=== PATIENT | male | born 1960 | race Caucasian/White ===

== ENCOUNTER 2018-09-30 11:06 | Emergency (ER) | payer BC ==
[2018-09-30 11:51] LABS: Absolute Lymphocytes (CBC) 1.8 K/uL (0.7-4.9); Absolute Monocytes 0.7 K/uL (0.1-1.3); Absolute Neutrophil 7.8 K/uL (1.8-8.0); Basophils % 0.4 % (0-1.3); Eosinophils % 0.3 % (0-4.4); Hematocrit 47.3 % (39.6-49.0); Lymphocytes % 17.7 % (15.3-44.8); MPV 7.9 fL (7.6-11.3); Monocytes % 6.5 % (3.3-12.3); RBC Red Blood Cell Count 5.21 M/uL (4.33-5.43)
[2018-09-30] MEDS ORDERED: NA CHLORIDE 0.9% 1,000 ML ONE (11:51)
[2018-09-30 12:12] LABS: Albumin 4.2 g/dL (3.4-5.0); Bilirubin Direct 0.2 mg/dL (0-0.2); Bilirubin Total 0.8 mg/dL (0.2-1.0); Magnesium 1.8 mg/dL (1.8-2.4); Potassium 4.2 mmol/L (3.5-5.1); Protein, Total 7.7 g/dL (6.4-8.2); Troponin (Emerg Dept Use Only) 0.04 ng/mL (0.0-0.045)
[2018-09-30 12:14] LABS: Protime INR 1.01
--- NOTE | 2018-09-30 12:20 | RAD REPORT ---
EXAM DESCRIPTION: Radha Single View09/30/2018 12:15 pm CLINICAL HISTORY: Chest pain COMPARISON: 2012 FINDINGS: The lungs appear clear of acute infiltrate. The heart is normal size IMPRESSION: No acute abnormalities displayed
--- NOTE | 2018-09-30 12:44 | ER ---
Nurse's Notes [facility] Name: Kevin Castellon Age: 58 yrs Sex: Male : 1960 Arrival Date: 09/30/2018 Time: 11:07 Bed 19 Private MD: London Aguiar R Diagnosis: Chest pain, unspecified;Angina pectoris;Type 2 diabetes mellitus;Essential (primary) hypertension Presentation: 09/30 11:17 Care prior to arrival: EKG performed by Employer. sg 11:17 Acuity: HUGH 3 sg 11:19 Presenting complaint: Patient states: Midsternal CP that radiates to the mid upper sg back, reports the pain that is burning that radiates the left arm, started early this morning about 0600. Transition of care: patient was not received from another setting of care. Onset of symptoms was September 30, 2018. Risk Assessment: Do you want to hurt yourself or someone else? Patient reports no desire to harm self or others. Initial Sepsis Screen: Does the patient meet any 2 criteria? No. Patient's initial sepsis screen is negative. Does the patient have a suspected source of infection? No. Patient's initial sepsis screen is negative. 11:19 Method Of Arrival: Ambulatory sg 11:24 Note took 325 mg aspirin PO. sg Historical: - Allergies: 11:24 Sulfa (Sulfonamide Antibiotics); sg - PMHx: 11:24 Diabetes - NIDDM; Hypertension; sg - PSHx: 11:17 Appendectomy; Hernia repair; sg - Immunization history:: Adult Immunizations up to date. - Social history:: Smoking status: Patient/guardian denies using tobacco. - Ebola Screening: : Patient negative for fever greater than or equal to 101.5 degrees Fahrenheit, and additional compatible Ebola Virus Disease symptoms Patient denies exposure to infectious person Patient denies travel to an Ebola-affected area in the 21 days before illness onset No symptoms or risks identified at this time. - Family history:: not pertinent. Screenin:48 Abuse screen: Denies threats or abuse. Nutritional screening: No deficits noted. tw2 Tuberculosis screening: No symptoms or risk factors identified. Fall Risk None identified. Assessment: 11:30 General: Appears in no apparent distress. Behavior is calm, cooperative, appropriate tw2 for age. Pain: Complains of pain in chest Pain radiates to back Pain began since 6 am this morning. Neuro: Level of Consciousness is awake, alert, obeys commands, Oriented to person, place, time, situation. Cardiovascular: Denies chest pain, shortness of breath, Heart tones S1 S2 Patient's skin is warm and dry. Respiratory: Airway is patent Respiratory effort is even, unlabored, Respiratory pattern is regular, symmetrical, Breath sounds are clear bilaterally. GI: No signs and/or symptoms were reported involving the gastrointestinal system. Abdomen is round non-distended, Bowel sounds present X 4 quads. : No signs and/or symptoms were reported regarding the genitourinary system. EENT: No signs and/or symptoms were reported regarding the EENT system. Derm: No signs and/or symptoms reported regarding the dermatologic system. Musculoskeletal: Range of motion: intact in all extremities. 12:50 Reassessment: Patient appears in no apparent distress at this time. No changes from tw2 previously documented assessment. Patient and/or family updated on plan of care and expected duration. Pain level reassessed. Patient is alert, oriented x 3, equal unlabored respirations, skin warm/dry/pink. pt refused pain medication at this time states "09/05 maybe". 13:30 Reassessment: Patient appears in no apparent distress at this time. No changes from tw2 previously documented assessment. Patient and/or family updated on plan of care and expected duration. Pain level reassessed. Patient is alert, oriented x 3, equal unlabored respirations, skin warm/dry/pink. 14:37 Reassessment: Patient appears in no apparent distress at this time. No changes from tw2 previously documented assessment. Patient and/or family updated on plan of care and expected duration. Pain level reassessed. Patient is alert, oriented x 3, equal unlabored respirations, skin warm/dry/pink. Vital Signs: 11:24 BP 136 / 96; Pulse 71; Resp 17; Temp 97.2; Pulse Ox 98% on R/A; Weight 95.25 kg; Height sg 5 ft. 10 in. (177.80 cm); Pain 06/05; 12:50 BP 133 / 83 LA; Pulse 60; Resp 18; Pulse Ox 98% on R/A; tw2 12:50 BP 129 / 84 RA; Pulse 60; Resp 17; tw2 13:31 BP 129 / 81; Pulse 60; Resp 17; Pulse Ox 96% on R/A; tw2 11:24 Body Mass Index 30.13 (95.25 kg, 177.80 cm) ED Course: 11:07 Patient arrived in ED. as 11:08 London Aguiar MD is Private Physician. as 11:17 Triage completed. sg 11:17 Arm band placed on. sg 11:26 Catrachita Smiley RN is Primary Nurse. tw2 11:28 Luis Fernando Whiteside MD is Attending Physician. tyrone 11:30 Placed in gown. Bed in low position. Call light in reach. Adult w/ patient. Cardiac tw2 monitor on. Pulse ox on. NIBP on. 11:30 Inserted saline lock: 20 gauge in right forearm, using aseptic technique. ,using tw2 aseptic technique. per LINDA Schafer Blood collected. 11:39 EKG done, by claim technician. reviewed by Luis Fernando Whiteside MD. at1 12:16 X-ray completed. Portable x-ray completed in exam room. Patient tolerated procedure mh1 well. 12:16 XRAY Chest (1 view) In Process Unspecified. EDMS 12:43 London Aguiar MD is Hospitalizing Provider. tyrone 12:47 EKG done, by claim technician. reviewed by Luis Fernando Whiteside MD Repeat EKG. at1 13:24 CT Aorta for Dissection In Process Unspecified. EDMS 13:30 Inserted saline lock: 22 gauge in right antecubital area, using aseptic technique. tw2 ,using aseptic technique. residential specialist. 13:48 Patient maintains SpO2 saturation greater than 95% on room air. tw2 13:58 Report given to LINDA Salvador at [facility]. tw2 14:36 No provider procedures requiring assistance completed. Patient transferred, IV remains tw2 in place. Administered Medications: 11:49 Drug: NS 0.9% 1000 ml Route: IV; Rate: 125 ml/hr; Site: right forearm; tw2 14:35 Follow up: IV Status: Infusion continued upon transfer tw2 12:48 Drug: ProTONIX 40 mg Route: IVP; Site: right forearm; tw2 13:40 Follow up: Response: No adverse reaction tw2 12:50 Drug: Lopressor 25 mg Route: PO; tw2 13:41 Follow up: Response: No adverse reaction tw2 12:50 Drug: PlaVIX 600 mg Route: PO; tw2 13:40 Follow up: Response: No adverse reaction tw2 12:53 Drug: Heparin (CO-Bolus No thrombolytic) - HEParin 60 units/kg {Co-Signature: ph tw2 (Alexa Ferraro RN).} Route: IVP; Site: right forearm; 13:41 Follow up: Response: No adverse reaction tw2 12:55 Drug: Heparin (CO Drip) 12 units/kg/hr - (HEParin 75685 units, D5W 500 ml) tw2 {Co-Signature: ph (Alexa Ferraro RN).} Route: IV; Rate: calculated rate; Site: right forearm; 14:34 Follow up: IV Status: Infusion continued upon transfer tw2 13:28 Not Given (pts hr is 60): Lopressor 2.5 mg IVP once; Hold for SBP <100 or HR <60. tw2 14:30 Drug: Zofran 4 mg Route: IVP; Site: right antecubital; tw2 14:35 Follow up: Response: No adverse reaction tw2 14:32 Drug: morphine 4 mg Route: IVP; Site: right antecubital; tw2 14:35 Follow up: Response: No adverse reaction tw2 14:36 Not Given (pts condition): Lopressor 2.5 mg IVP once; Hold for SBP <100 or HR <60. tw2 Outcome: 12:44 Decision to Hospitalize [facility] 13:05 ER care complete, transfer ordered by [facility] 13:05 Transferred by [facility] EMS to [facility]. tw2 13:05 Condition: stable 13:05 Instructed on the need for transfer. 14:37 Patient left the ED. tw2 Signatures: Dispatcher [employer] Gilmar White, RN RN Luis Fernando Zamorano MD MD cha Harvey, Martha mh1 Brittny Duong Amanda, oral health therapist EKG Tat1 Catrachita Smiley RN RN tw2 Alexa Ferraro RN ph
--- NOTE | 2018-09-30 12:44 | EDPHYS ---
Physician Documentation [facility] Name: Kevin Castellon Age: 58 yrs Sex: Male : 1960 Arrival Date: 09/30/2018 Time: 11:07 Bed 19 Private MD: London Aguiar R ED Physician Luis Fernando Whiteside HPI: 09/30 12:24 This 58 yrs old Male presents to ER via Ambulatory with complaints of Chest tyrone Pain. 12:24 The patient or guardian reports chest pain that is located primarily in the anterior tyrone chest wall, bilaterally. Onset: this morning. The pain radiates to Associated signs and symptoms: The patient has no apparent associated signs or symptoms. The chest pain is described as burning, a pressure. Modifying factors: The symptoms are alleviated by nothing. Severity of pain: At its worst the pain was moderate in the emergency department the pain has improved moderately. The patient has not experienced similar symptoms in the past. Historical: - Allergies: 11:24 Sulfa (Sulfonamide Antibiotics); sg - PMHx: 11:24 Diabetes - NIDDM; Hypertension; sg - PSHx: 11:17 Appendectomy; Hernia repair; sg - Immunization history:: Adult Immunizations up to date. - Social history:: Smoking status: Patient/guardian denies using tobacco. - Ebola Screening: : Patient negative for fever greater than or equal to 101.5 degrees Fahrenheit, and additional compatible Ebola Virus Disease symptoms Patient denies exposure to infectious person Patient denies travel to an Ebola-affected area in the 21 days before illness onset No symptoms or risks identified at this time. - Family history:: not pertinent. ROS: 12:24 Constitutional: Negative for fever, chills, and weight loss, Eyes: Negative for injury, tyrone pain, redness, and discharge, ENT: Negative for injury, pain, and discharge, Neck: Negative for injury, pain, and swelling, Respiratory: Negative for shortness of breath, cough, wheezing, and pleuritic chest pain, Abdomen/GI: Negative for abdominal pain, nausea, vomiting, diarrhea, and constipation, Back: Negative for injury and pain, : Negative for injury, bleeding, discharge, and swelling, MS/Extremity: Negative for injury and deformity, Skin: Negative for injury, rash, and discoloration, Neuro: Negative for headache, weakness, numbness, tingling, and seizure, Psych: Negative for depression, anxiety, suicide ideation, homicidal ideation, and hallucinations, Allergy/Immunology: Negative for hives, rash, and allergies, Endocrine: Negative for neck swelling, polydipsia, polyuria, polyphagia, and marked weight changes, Hematologic/Lymphatic: Negative for swollen nodes, abnormal bleeding, and unusual bruising. 12:24 Cardiovascular: Positive for chest pain, of the chest. Exam: 12:24 Constitutional: This is a well developed, well nourished patient who is awake, alert, tyrone and in no acute distress. Head/Face: Normocephalic, atraumatic. Eyes: Pupils equal round and reactive to light, extra-ocular motions intact. Lids and lashes normal. Conjunctiva and sclera are non-icteric and not injected. Cornea within normal limits. Periorbital areas with no swelling, redness, or edema. ENT: Nares patent. No nasal discharge, no septal abnormalities noted. Tympanic membranes are normal and external auditory canals are clear. Oropharynx with no redness, swelling, or masses, exudates, or evidence of obstruction, uvula midline. Mucous membranes moist. Neck: Trachea midline, no thyromegaly or masses palpated, and no cervical lymphadenopathy. Supple, full range of motion without nuchal rigidity, or vertebral point tenderness. No Meningismus. Chest/axilla: Normal chest wall appearance and motion. Nontender with no deformity. No lesions are appreciated. Cardiovascular: Regular rate and rhythm with a normal S1 and S2. No gallops, murmurs, or rubs. Normal PMI, no JVD. No pulse deficits. Respiratory: Lungs have equal breath sounds bilaterally, clear to auscultation and percussion. No rales, rhonchi or wheezes noted. No increased work of breathing, no retractions or nasal flaring. Abdomen/GI: Soft, non-tender, with normal bowel sounds. No distension or tympany. No guarding or rebound. No evidence of tenderness throughout. Back: No spinal tenderness. No costovertebral tenderness. Full range of motion. Male : Normal genitalia with no discharge or lesions. Skin: Warm, dry with normal turgor. Normal color with no rashes, no lesions, and no evidence of cellulitis. MS/ Extremity: Pulses equal, no cyanosis. Neurovascular intact. Full, normal range of motion. Neuro: Awake and alert, GCS 15, oriented to person, place, time, and situation. Cranial nerves II-XII grossly intact. Motor strength 5/5 in all extremities. Sensory grossly intact. Cerebellar exam normal. Normal gait. Psych: Awake, alert, with orientation to person, place and time. Behavior, mood, and affect are within normal limits. Vital Signs: 11:24 BP 136 / 96; Pulse 71; Resp 17; Temp 97.2; Pulse Ox 98% on R/A; Weight 95.25 kg; Height sg 5 ft. 10 in. (177.80 cm); Pain 10/10; 12:50 BP 133 / 83 LA; Pulse 60; Resp 18; Pulse Ox 98% on R/A; tw2 12:50 BP 129 / 84 RA; Pulse 60; Resp 17; tw2 13:31 BP 129 / 81; Pulse 60; Resp 17; Pulse Ox 96% on R/A; tw2 11:24 Body Mass Index 30.13 (95.25 kg, 177.80 cm) MDM: 11:28 Patient medically screened. [facility] 12:28 Data reviewed: vital signs, nurses notes, lab test result(s), EKG, radiologic studies, tyrone plain films. 09/30 11:28 Order name: Basic Metabolic Panel; Complete Time: 12:22 [facility] 09/30 11:28 Order name: CBC with Diff; Complete Time: 12:22 [facility] 09/30 11:28 Order name: LFT's; Complete Time: 12:22 [facility] 09/30 11:28 Order name: Magnesium; Complete Time: 12:22 [facility] 09/30 11:28 Order name: NT PRO-BNP; Complete Time: 12:22 [facility] 09/30 11:28 Order name: PT-INR; Complete Time: 12:22 [facility] 09/30 11:28 Order name: Troponin (emerg Dept Use Only); Complete Time: 12:22 [facility] 09/30 11:28 Order name: XRAY Chest (1 view); Complete Time: 12:22 [facility] 09/30 11:28 Order name: Lipase; Complete Time: 12:22 [facility] 09/30 12:10 Order name: Urine Dipstick--Ancillary (enter results); Complete Time: 13:42 09/30 12:46 Order name: Echo w/ Doppler [facility] 09/30 12:46 Order name: CT Aorta for Dissection; Complete Time: 13:42 tyrone 09/30 11:28 Order name: EKG; Complete Time: 11:30 tyrone 09/30 11:28 Order name: Cardiac monitoring; Complete Time: 11:39 [place] 09/30 11:28 Order name: EKG - Nurse/Tech; Complete Time: 11:39 tyrone 09/30 11:28 Order name: IV Saline Lock; Complete Time: 11:39 tyrone 09/30 11:28 Order name: Labs collected and sent; Complete Time: 11:39 [facility] 09/30 11:28 Order name: O2 Per Protocol; Complete Time: 11:39 tyrone 09/30 11:28 Order name: O2 Sat Monitoring; Complete Time: 11:39 [facility] 09/30 12:51 Order name: EKG; Complete Time: 12:51 fl 09/30 11:28 Order name: Urine Dipstick-Ancillary (obtain specimen); Complete Time: 11:49 [facility] 09/30 12:28 Order name: Bilateral blood pressure; Complete Time: 12:58 [facility] Administered Medications: 11:49 Drug: NS 0.9% 1000 ml Route: IV; Rate: 125 ml/hr; Site: right forearm; tw2 14:35 Follow up: IV Status: Infusion continued upon transfer tw2 12:48 Drug: ProTONIX 40 mg Route: IVP; Site: right forearm; tw2 13:40 Follow up: Response: No adverse reaction tw2 12:50 Drug: Lopressor 25 mg Route: PO; tw2 13:41 Follow up: Response: No adverse reaction tw2 12:50 Drug: PlaVIX 600 mg Route: PO; tw2 13:40 Follow up: Response: No adverse reaction tw2 12:53 Drug: Heparin (OR-Bolus No thrombolytic) - HEParin 60 units/kg {Co-Signature: ph tw2 (Alexa Ferraro RN).} Route: IVP; Site: right forearm; 13:41 Follow up: Response: No adverse reaction tw2 12:55 Drug: Heparin (OR Drip) 12 units/kg/hr - (HEParin 74769 units, D5W 500 ml) tw2 {Co-Signature: ph (Alexa Ferrrao RN).} Route: IV; Rate: calculated rate; Site: right forearm; 14:34 Follow up: IV Status: Infusion continued upon transfer tw2 13:28 Not Given (pts hr is 60): Lopressor 2.5 mg IVP once; Hold for SBP <100 or HR <60. tw2 14:30 Drug: Zofran 4 mg Route: IVP; Site: right antecubital; tw2 14:35 Follow up: Response: No adverse reaction tw2 14:32 Drug: morphine 4 mg Route: IVP; Site: right antecubital; tw2 14:35 Follow up: Response: No adverse reaction tw2 14:36 Not Given (pts condition): Lopressor 2.5 mg IVP once; Hold for SBP <100 or HR <60. tw2 Disposition: 09/30/18 13:[address] [facility]. Diagnosis are Chest pain, unspecified, Angina pectoris, Type 2 diabetes mellitus, Essential (primary) hypertension. - Reason for transfer: Higher level of care. - Accepting physician is to [facility] [place] - Condition is Fair. - Problem is new. - Symptoms have improved. Signatures: Dispatcher [employer] EDGilmar Russell RN RN Luis Fernando Whiteside MD MD cha Wise, Tara, RN RN tw2 Alexa Ferraro RN ph Corrections: (The following items were deleted from the chart) 13:02 12:44 Hospitalization Ordered by London Aguiar MD for Observation. Preliminary diagnosis tyrone is Chest pain, unspecified - angina; Type 2 diabetes mellitus; Essential (primary) hypertension. Bed requested for Telemetry/MedSurg (Inpatient). Status is Observation. Condition is Fair. Problem is new. Symptoms have improved. UTI on Admission? No. tyrone 14:37 13:05 09/30/2018 13:[address] [facility]. Diagnosis is tw2 Chest pain, unspecified; Angina pectoris; Type 2 diabetes mellitus; Essential (primary) hypertension. Reason for transfer: Higher level of care. Accepting physician is to [facility] [place]. Condition is Fair. Problem is new. Symptoms have improved. tyrone
[2018-09-30] MEDS ORDERED: MORPHINE 4 MG/ML SYR ONE (12:52)
[2018-09-30] MEDS ORDERED: CLOPIDOGREL 75 MG TABLET ONE (12:52)
[2018-09-30] MEDS ORDERED: HEPARIN 5000 UNIT/ML 1 ML VIAL ONE (12:52)
[2018-09-30] MEDS ORDERED: PANTOPRAZOLE 40 MG INJ ONE (12:53)
[2018-09-30] MEDS ORDERED: METOPROLOL TAR 25 MG TAB ONE (12:53)
[2018-09-30] MEDS ORDERED: HEPARIN/D5W 25,000 UNIT/500 ML BAG IV ONE (12:53)
[2018-09-30] MEDS ORDERED: ONDANSETRON 4 MG/2 ML VIAL ONE (12:53)
[2018-09-30] MEDS ORDERED: METOPROLOL TARTRATE 5 MG/5 ML INJ IV ONE (12:53)
--- NOTE | 2018-09-30 12:55 | EKG ---
Test Date: 2018-08-30 Test Time: 12:26:42 Health And Safety Inspector: YAHAIRA MEASUREMENT RESULTS: Intervals: Rate: 69 ID: [id number] QRSD: 96 QT: 404 QTc: 432 [place]: P: 45 ID: [id number] QRS: 12 T: 23 INTERPRETIVE STATEMENTS: Normal sinus rhythm Normal ECG Compared to ECG 08/30/2018 11:25:26 ST (T wave) deviation no longer present Electronically Signed On 09-30-18 12:54:24 LEGAL ASSISTANT by Alex Amaya
--- NOTE | 2018-09-30 12:56 | EKG ---
Test Date: 2018-08-30 Test Time: 11:25:26 Knitted Cloth Examiner: YAHAIRA MEASUREMENT RESULTS: Intervals: Rate: 72 [place]: 160 QRSD: 94 QT: 394 QTc: 431 [place]: P: 43 [place]: 160 QRS: 17 T: 27 INTERPRETIVE STATEMENTS: Normal sinus rhythm ST elevarion consider pericarditis or injury Abnormal ECG Compared to ECG 09/10/2011 10:55:59 ST (T wave) deviation now present Sinus tachycardia no longer present Electronically Signed On 09-30-18 12:55:56 CONE TRUCKER by Alex Amaya
[2018-09-30 13:18] LABS: Urine Blood NEGATIVE (NEG); Urine Glucose 3+ (NEG); Urine Protein TRACE (NEG); Urine Specific Gravity 1.025 (1.005-1.030); Urine pH 5.5 (5.0-7.0)
--- NOTE | 2018-09-30 13:33 | RAD REPORT ---
EXAM DESCRIPTION: CT - Angio Aorta For Dissection - 09/30/2018 1:19 pm CLINICAL HISTORY: Chest pain radiating to the back. CHEST PAIN COMPARISON: No comparisons TECHNIQUE: CT angiography of the aorta was performed with MIPs. All CT scans are performed using dose optimization technique as appropriate and may include automated exposure control or mA/KV adjustment according to patient size. FINDINGS: A left aortic arch is present with normal branching pattern of the great vessels.No acute aortic finding is seen such as aneurysm, penetrating ulcer or dissection. The celiac axis, SMA, RACHAEL and renal arteries are widely patent. No evidence of pulmonary embolism. The lungs are clear. The liver demonstrates no focal mass or biliary dilatation.The spleen, pancreas, adrenal glands and k idneys are within normal limits for arterial phase imaging. No bowel obstruction, free fluid or abscess.Appendectomy. Evidence of previous anterior abdominal wal l hernia repair.No pathologic enlarged lymphadenopathy identified. Scattered colonic diverticulosis. Moderate lower lumbar degenerative changes. Mild S-shaped scoliosis is present of the thoracolumbar s pine. IMPRESSION: No acute aortic finding is demonstrated.
[2018-09-30 14:48] VITALS: TEMP 97.2
[2018-09-30 14:50] VITALS: BP 129/81; O2SAT 96
--- NOTE | 2018-09-30 17:02 | ECHO ---
HEIGHT: 5 ft 10 in WEIGHT: 210 lb 0 oz DATE OF STUDY: 09/30/[address]: Luis Fernando Whiteside MD 2-DIMENSIONAL: YES M.MODE: YES DOPPLER: YES COLOR FLOW: YES TDS: PORTABLE: DEFINITY: BUBBLE STUDY: DIAGNOSIS: CHEST PAIN CARDIAC HISTORY: CATHERIZATION: NO SURGERY: NO PROSTHETIC VALVE: NO PACEMAKER: NO MEASUREMENTS (cm) DIASTOLIC (NORMALS) SYSTOLIC (NORMALS) IVSd 1.1 (0.6-1.2) LA Diam 2.9 (1.9-4.0) LVEF 62% LVIDd 4.8 (3.5-5.7) LVIDs 3.2 (2.0-3.5) %FS 34% LVPWd 1.1 (0.6-1.2) Ao Diam 3.3 (2.0-3.7) 2 DIMENSIONAL ASSESSMENT: RIGHT ATRIUM: NORMAL LEFT ATRIUM: NORMAL RIGHT VENTRICLE: NORMAL LEFT VENTRICLE: NORMAL TRICUSPID VALVE: NORMAL MITRAL VALVE: NORMAL PULMONIC VALVE: NORMAL AORTIC VALVE: NORMAL PERICARDIAL EFFUSION: NONE AORTIC ROOT: NORMAL LEFT VENTRICULAR WALL MOTION: NORMAL DOPPLER/COLOR FLOW: NORMAL COMMENTS: NORMAL TWO DIMENSIONAL ECHOCARDIOGRAM WITH DOPPLER. TECHNOLOGIST: BREANN PACHECO
== END 2018-09-30 14:37 | disposition short-term general hospital (02) ==
LOC: ER 11:06
DX: I20.9 Angina pectoris, unspecified (principal); I10 Essential (primary) hypertension; E11.9 Type 2 diabetes mellitus without complications; Z88.2 Allergy status to sulfonamides
CPT/HCPCS: 36415; 71045; 71275; 74175; 80048; 80076; 81003; 83690; 83735; 83880; 84484; 85025; 85610; 93005; 93306; 99285; C9113; J1644; J2405; J7030; Q9967

== ENCOUNTER 2018-11-03 11:14 | Emergency (ER) | payer BC ==
--- OUTSIDE RECORDS SUMMARY | 2018-11-03 11:17 | XMS REPORT | Clinical Summary ---
:1960 Author Organization [facility] Address [address] [place] [address] Care Team Providers Name Role Phone Pcp, No Primary Care Provider Unavailable Allergies Active Allergy Reactions Severity Noted Date Comments Sulfa (Sulfonamide Other (See Comments) High 09/30/2018 Liver failure Antibiotics) Medications Medication Sig Dispensed Refills Start Date End Date Status amLODIPine (NORVASC) 10 Take 10 mg by 0 Active MG tablet mouth daily. lisinopril Take 20 mg by 0 Active (PRINIVIL,ZESTRIL) 5 MG mouth daily . tablet omeprazole (PRILOSEC) Take 40 mg by 0 Active 40 MG capsule mouth daily. glimepiride (AMARYL) 1 Take 0.5 mg by 0 Active MG tablet mouth every morning before breakfast. tamsulosin (FLOMAX) 0.4 Take 0.4 mg by 0 Active mg Cap 24 hr capsule mouth daily. levocetirizine (XYZAL) Take 5 mg by 0 Active 5 MG tablet mouth every evening. celecoxib (CELEBREX) Take 200 mg by 0 Active 200 MG capsule mouth every 12 (twelve) hours as needed for Pain. aspirin 81 MG chewable Take 1 tablet 90 tablet 3 10/02/2018 10/02/2019 Active tablet (81 mg total) by mouth daily. metoprolol (LOPRESSOR) Take 0.5 90 tablet 3 10/02/2018 10/02/2019 Active 25 MG tablet tablets (12.5 mg total) by mouth 2 (two) times daily. atorvastatin (LIPITOR) Take 1 tablet 90 tablet 3 10/01/2018 10/01/2019 Active 40 MG tablet (40 mg total) by mouth daily. Active Problems Problem Noted Date NSTEMI (non-ST elevated myocardial infarction) 09/30/2018 Encounters Date Type Specialty Care Team Description 10/01/2018 Surgery Aleks Turner & PCI MD Abraham 09/30/2018 - Hospital Encounter Cardiology Tiffanie Turner NSTEMI (non-ST 10/02/2018 Abolfathian, elevated myocardial MD infarction) (HCC) Johnny, (Primary Dx) MD Abraham 09/30/2018 Orders Only General Internal Medicine after 11/02/2017 Social History Tobacco Use Types Packs/Day Years Used Date Never Smoker Smokeless Tobacco: Former User Snuff Alcohol Use Drinks/Week oz/Week Comments No Alcohol Habits Answer Date Recorded How often do you have a drink containing alcohol? Never 09/30/2018 How many drinks containing alcohol do you have on a typical Not asked day when you are drinking? How often do you have six or more drinks on one occasion? Not asked Sex Assigned at Date Recorded Not on file Job Start Date Occupation Industry Not on file Not on file Not on file Travel History Travel Start Travel End No recent travel history available. Last Filed Vital Signs Vital Sign Reading Time Taken Blood Pressure 113/79 10/02/2018 7:30 AM [employer]CIAL PORT[employer] MANAGER Pulse 61 10/02/2018 7:30 AM [employer]CIAL PORTF[employer] MANAGER Temperature 36.6 C (97.9 F) 10/02/2018 7:30 AM COMMERCIAL PORTF[employer] MANAGER Respiratory Rate 20 10/02/2018 7:30 AM COMMERCIAL PORTF[employer] MANAGER Oxygen Saturation 94% 10/02/2018 7:30 AM COMMERCIAL PORTFOLIO MANAGER Inhaled Oxygen Concentration - - Weight 93.6 kg (206 lb 6.4 oz) 10/02/2018 7:30 AM COMMERCIAL PORTFOLIO MANAGER Height 178 cm (5' 10.08") 10/01/2018 3:41 PM COMMERCIAL PORTFOLIO MANAGER Body Mass Index 29.55 10/02/2018 7:30 AM COMMERCIAL PORTFOLIO MANAGER Plan of Treatment Not on file Procedures Procedure Name Priority Date/Time Associated Comments Diagnosis VASCULAR DIAGRAM -SCAN 10/24/2018 4:41 PM COMMERCIAL PORTFOLIO MANAGER RHYTHM STRIP - SCAN 10/15/2018 2:31 PM COMMERCIAL PORTFOLIO MANAGER REPORT OF PROCEDURE - 10/15/2018 2:31 ENDOSCOPY SCAN PM COMMERCIAL PORTFOLIO MANAGER CARDIAC CATH REPORT - 10/15/2018 2:31 SCAN PM COMMERCIAL PORTFOLIO MANAGER TRANSFUSION SERVICE 10/02/2018 6:02 REPORT - SCAN PM COMMERCIAL PORTFOLIO MANAGER POCT-GLUCOSE METER Routine 10/02/2018 7:28 Results for this AM COMMERCIAL PORTF[employer]IO MANAGER procedure are in the results section. CBC W/PLT COUNT & AUTO Routine 10/02/2018 3:33 Results for this DIFFERENTIAL AM [employer] MANAGER procedure are in the results section. CBC W/PLT COUNT & AUTO Routine 10/02/2018 3:33 Results for this DIFFERENTIAL AM [employer]ERCIAL PORTFOLIO MANAGER procedure are in the results section. BASIC METABOLIC PANEL Routine 10/02/2018 3:33 Results for this (7) AM COMMERCIAL PORTF[employer]IO MANAGER procedure are in the results section. POCT-GLUCOSE METER Routine 10/01/2018 9:39 Results for this PM [employer]ERCIAL PORTF[employer]IO MANAGER procedure are in the results section. CBC (HEMOGRAM ONLY) Routine 10/01/2018 7:22 Results for this PM COMMERCIAL PORTF[employer]IO MANAGER procedure are in the results section. POCT-GLUCOSE METER Routine 10/01/2018 5:47 Results for this PM COMMERCIAL PORTF[employer]IO MANAGER procedure are in the results section. L CATH & PCI 10/01/2018 4:48 Chest pain due to PM [employer]ER[employer] PORTF[employer] MANAGER coronary artery disease POCT-ACT Routine 10/01/2018 4:39 Results for this PM COMMERCIAL PORTFOLIO MANAGER procedure are in the results section. ECHOCARDIOGRAM REPORT 10/01/2018 1:53 - SCAN PM COMMERCIAL PORTFOLIO MANAGER ABORH, MANUAL Routine 10/01/2018 11:10 Results for this AM COMMERCIAL PORTFOLIO MANAGER procedure are in the results section. POCT-GLUCOSE METER Routine 10/01/2018 11:06 Results for this AM COMMERCIAL PORTFOLIO MANAGER procedure are in the results section. TYPE AND SCREEN, Routine 10/01/2018 10:29 Results for this AUTOMATED AM COMMERCIAL PORTFOLIO MANAGER procedure are in the results section. 2D ECHO W/ DOPPLER CHRIS 10/01/2018 9:27 Results for this (CW/PW/COLOR) AM COMMERCIAL PORTFOLIO MANAGER procedure are in the results section. POCT-GLUCOSE METER Routine 10/01/2018 8:01 Results for this AM COMMERCIAL PORTFOLIO MANAGER procedure are in the results section. APTT Routine 10/01/2018 6:18 Results for this AM COMMERCIAL PORTFOLIO MANAGER procedure are in the results section. TROPONIN I Routine 10/01/2018 6:18 Results for this AM COMMERCIAL PORTFOLIO MANAGER procedure are in the results section. ECG 12-LEAD Routine 10/01/2018 6:10 Results for this AM COMMERCIAL PORTFOLIO MANAGER procedure are in the results section. TROPONIN I Routine 10/01/2018 12:29 Results for this AM COMMERCIAL PORTFOLIO MANAGER procedure are in the results section. APTT Routine 10/01/2018 12:29 Results for this AM COMMERCIAL PORTFOLIO MANAGER procedure are in the results section. POCT-GLUCOSE METER Routine 09/30/2018 9:44 Results for this PM COMMERCIAL [employer]IO MANAGER procedure are in the results section. XR CHEST 1 VIEW STAT 09/30/2018 6:00 Results for this PORTABLE/BEDSIDE PM [employer]IO MANAGER procedure are in the results section. CBC W/PLT COUNT & AUTO STAT 09/30/2018 5:00 Results for this DIFFERENTIAL PM COMMER[employer] PORTFOLIO MANAGER procedure are in the results section. APTT Routine 09/30/2018 5:00 Results for this PM [employer]ER[employer]IO MANAGER procedure are in the results section. HEMOGLOBIN A1C AP Routine 09/30/2018 5:00 Results for this PM [employer] MANAGER procedure are in the results section. LIPID PANEL STAT 09/30/2018 5:00 Results for this PM [employer]ER[employer] PORTF[employer]IO MANAGER procedure are in the results section. MAGNESIUM STAT 09/30/2018 5:00 Results for this PM COMMERCIAL PORTFOLIO MANAGER procedure are in the results section. B-TYPE NATRIURETIC STAT 09/30/2018 5:00 Results for this FACTOR (BNP) PM COMMERCIAL PORTFOLIO MANAGER procedure are in the results section. TROPONIN I STAT 09/30/2018 5:00 Results for this PM COMMERCIAL PORTFOLIO MANAGER procedure are in the results section. COMPREHENSIVE STAT 09/30/2018 5:00 Results for this METABOLIC PANEL PM COMMERCIAL PORTFOLIO MANAGER procedure are in the results section. CBC W/PLT COUNT & AUTO STAT 09/30/2018 5:00 Results for this DIFFERENTIAL PM [employer]ERCIAL [employer]IO MANAGER procedure are in the results section. ECG 12-LEAD Routine 09/30/2018 4:50 PM COMMERCIAL PORTFOLIO MANAGER Procedure Note - Interface, External Ris In - 09/30/2018 4:54 PM COMMERCIAL PORTFOLIO MANAGER Ventricular Rate 59 BPM Atrial Rate 59 BPM P-R Interval 170 ms QRS Duration 96 ms Q-T Interval 422 ms QTC Calculation(Bazett) 417 ms P Copan 59 degrees R Copan 8 degrees T Copan 34 degrees Sinus bradycardia Otherwise normal ECG No previous ECGs available ECG 12-LEAD STAT 09/30/2018 4:50 PM COMMERCIAL PORTFOLIO MANAGER POCT-GLUCOSE METER Routine 09/30/2018 4:19 PM COMMERCIAL PORTFOLIO MANAGER after 11/02/2017 Results VASCULAR DIAGRAM -SCAN (10/24/2018 4:41 PM COMMERCIAL PORTFOLIO MANAGER) Narrative Performed At RHYTHM STRIP - SCAN (10/15/2018 2:31 PM COMMERCIAL PORTFOLIO MANAGER) Narrative Performed At EKG-SCANNED (10/15/2018 2:31 PM COMMERCIAL PORTFOLIO MANAGER) Narrative Performed At CARDIAC CATH REPORT - SCAN (10/15/2018 2:31 PM COMMERCIAL PORTFOLIO MANAGER) Narrative Performed At TRANSFUSION SERVICE REPORT - SCAN (10/02/2018 6:02 PM COMMERCIAL PORTFOLIO MANAGER) Narrative Performed At POC-Glucose meter (10/02/2018 7:28 AM COMMERCIAL PORTFOLIO MANAGER)Only the most recent of7 resultswithin the time period is included. POC-Glucose Meter 199 (H)Comment: TESTED AT 70 - 110 mg/dL [facility] [address] [facility] [address] Specimen Blood Performing Organization Address City/State/Zipcode Phone Number [address] [address] [phone] CENTER CBC with platelet count + automated diff (10/02/2018 3:33 AM COMMERCIAL PORTFOLIO MANAGER)Only the most recent of2 resultswithin the time period is included. WBC 8.3 3.5 - 10.5 K/L [facility] RBC 5.01 4.63 - 6.08 M/L [facility] Hemoglobin 15.4 13.7 - 17.5 GM/DL [facility] Hematocrit 46.3 40.1 - 51.0 % [facility] MCV 92.4 (H) 79.0 - 92.2 fL [facility] MCH 30.7 25.7 - 32.2 pg [facility] MCHC 33.3 32.3 - 36.5 GM/DL [facility] RDW 13.0 11.6 - 14.4 % [facility] Platelets 273 150 - 450 K/CU MM [facility] MPV 9.1 (L) 9.4 - 12.4 fL [facility] nRBC 0 0 - 0 /100 WBC [facility] % Neutros 50 % [facility] % Lymphs 35 % [facility] % Monos 11 % [facility] % Eos 2 % [facility] % Baso 1 % [facility] # Neutros 4.12 1.78 - 5.38 K/L [facility] # Lymphs 2.86 1.32 - 3.57 K/L [facility] # Monos 0.94 (H) 0.30 - 0.82 K/L [facility] # Eos 0.18 0.04 - 0.54 K/L [facility] # Baso 0.05 0.01 - 0.08 K/L [facility] Immature Granulocytes-Relative 1 0 - 1 % [facility] Specimen Blood - Arm, Right Performing Organization Address City/[facility] Phone Number [address] [address] CENTER Basic metabolic panel (10/02/2018 3:33 AM COMMERCIAL PORTFOLIO MANAGER) Sodium 138 136 - 145 meq/L [facility] Potassium 4.2 3.5 - 5.1 meq/L [facility] Chloride 105 98 - 107 meq/L [facility] CO2 25 22 - 29 meq/L [facility] BUN 17 7 - 21 mg/dL [facility] Creatinine 0.98 0.57 - 1.25 mg/dL [facility] Glucose 196 (H) 70 - 105 mg/dL [facility] Calcium 9.3 8.4 - 10.2 mg/dL [facility] EGFR 78Comment: ESTIMATED GFR IS mL/min/1.73 sq m [facility] NOT ACCURATE CREATININE [facility] CENTER CLEARANCE IN PREDICTING GLOMERULAR FILTRATION RATE. ESTIMATED GFR IS NOT APPLICABLE FOR DIALYSIS PATIENTS. Specimen Blood - Arm, Right Performing Organization Address [facility] Phone Number [address] [address] CENTER CBC (Hemogram only) (10/01/2018 7:22 PM COMMERCIAL PORTFOLIO MANAGER) WBC 7.5 3.5 - 10.5 K/L [facility] RBC 5.30 4.63 - 6.08 M/L [facility] Hemoglobin 16.4 13.7 - 17.5 GM/DL [facility] Hematocrit 48.0 40.1 - 51.0 % [facility] MCV 90.6 79.0 - 92.2 fL [facility] MCH 30.9 25.7 - 32.2 pg [facility] MCHC 34.2 32.3 - 36.5 GM/DL [facility] RDW 13.0 11.6 - 14.4 % [facility] Platelets 323 150 - 450 K/CU MM [facility] MPV 9.2 (L) 9.4 - 12.4 fL [facility] nRBC 0 0 - 0 /100 WBC [facility] Specimen Blood - Arm, Right Performing Organization Address City/[facility]/[place] [address] [place] P[facility] ACTIVATED CLOTTING TIME (10/01/2018 4:39 PM COMMERCIAL PORTFOLIO MANAGER) Activated Clotting Time 114Comment: TESTED AT sec [facility] [address] [address] Specimen Blood Performing Organization Address City/[facility]/Zipcode Phone Number [address] [address] [place] ECHOCARDIOGRAM REPORT - SCAN (10/01/2018 1:53 PM COMMERCIAL PORTFOLIO MANAGER) Narrative Performed At ABORH, manual (10/01/2018 11:10 AM COMMERCIAL PORTFOLIO MANAGER) ABO Grouping A [facility] Rh Factor POS [facility] Specimen Blood Performing Organization Address City/[facility]/Zipcode Phone Number [facility] [address] [place], [place] [phone] Type and screen, automated (10/01/2018 10:29 AM COMMERCIAL PORTFOLIO MANAGER) ABO/RH AUTOMATED (BEAKER) A POSITIVE [facility] Ab Scrn NEGATIVE [facility] Specimen Blood - RBC bag Performing Organization Address City/[facility]/Zipcode Phone Number [facility] [address] [place] [address] 2D Echo W/Doppler(CW/PW/Color) (10/01/2018 9:27 AM COMMERCIAL PORTFOLIO MANAGER) Ejection Fraction [facility] ECHO [facility]ART[facility] MKCKESSON CPA Narrative Performed At Transthoracic Echocardiography Report (TTE) [facility] ECHO [facility]ART[facility] Demographics Patient NameYAWS, DAVIDDate of Study10/01/2018 LASHONDA Gender Male Visit [id number] Race Unknown [id number] Number Date of 1960 Referring PhysicianKayli Turner Age 58 year(s) SonographerHank Sanchez Interpreting Belen Bird MD Physician Procedure Type of Study TTE procedure:2DECHO W DOPPLER(CW/PW/COLOR) (CHRIS) Indications:Acute Chest Pain/ Suspected CAD. Clinical History HGB 15.4 HCT 45.2 % NSTEMI HTN DM Height: 70 inches Weight: 95.25 kg (210 lbs) BSA: 2.13 m^2 BMI: 30.13 kg/m^2 HR: 55 bpm BP: 140/82 mmHg Summary Global LV systolic function mildly reduced. Normal LV wall thickness. Grade 1 diastolic dysfunction (impaired relaxation and low-normal LA pressure). LA size is normal . Estimated peak systolic PA pressure is 20-25 mmHg . The estimated RA pressure by IVC dynamics 5-10mmHg . Previous Study No prior exam available for comparison. Signature Findings Technical Quality: Technically adequate exam. Left Ventricle The left ventricle is chamber size (by PSLAX di mension) is small (male - LVIDd < 4.2cm) . Normal LV wall thickness. All of the LV segments are mi ldly hypokinetic . Estimated LVEF by qualitative as sessment is mildly reduced (45-49%) . Grade 1 di astolic dysfunction (impaired relaxation and lo w-normal LA pressure). Gl obal LV systolic function mildly reduced. Left AtriumLA size is normal . Right VentricleNormal right ventricle structure and function. Right Atrium Normal right atrium. Aortic Valve Mild AoV cusp thickening. Mitral Valve Normal MV structure. Tricuspid ValveA trace of tricuspid regurgitation. Es timated peak systolic PA pressure is 20-25 mmHg . Pulmonic Valve Normal PV structure and function by limited views an d Doppler. AortaAortic root size (SInus of Valsalva diameter) is mi ldly dilated. PericardiumNo evidence of pericardial effusion. IVC/SVC/PA/PV/PleuralThe estimated RA pressure by IVC dynamics 5-10mmHg . Chambers/Structures Left Atrium LA Dimension: 3.07 cm LA Area: 18 cm^2 LA Volume: 41.9 ml LA Vol. Index: 20 ml/m^2 Left Ventricle LVIDd: 4.53 cm LVEDV:98.98 ml LV Septum Diastolic: 0.74 cm LVEF 2D Cube: 62.4 % LV Septum Systolic: 3.62 cm LV PW Diastolic: 0.71 cm LV Length: 9.28 cm LV PW Systolic: 0.83 cm LVEDV Krueger's:168.9 ml LVEDVI: 79 ml/m^2 LVESV Krueger's:92.02 ml LVESVI: 43 ml/m^2 LVEF Krueger's: 45.5 % LVOT Diameter: 2.34 cm Aorta Ao Root S of Argenis.: 3.62 cm Doppler/Quantitative Measurements Mitral Valve MV Peak E-Wave: 0.51 m/s MV Peak A-Wave: 0.57 m/s E/A Ratio: 0.89 Peak Gradient: 1.06 mmHg Deceleration Time: 297.4 msec MV Maxi. Peak: Aortic Valve Peak Velocity: 1.22 m/sMean Velocity: 0.82 m/s Peak Gradient: 5.96 mmHg Mean Gradient: 3.12 mmHg AV Area (continuity): 3.32 cm^2 AV VTI: 23.6 cm AV DVI: 0.77 LVOT Peak Velocity: 0.97 m/s Peak Gradient: 3.74 mmHg Mean Velocity: 0.64 m/s Mean Gradient: 1.93 mmHg LVOT Diameter: 2.34 cmLVOT VTI: 18.21 cm LVOT Area: 4.3 cm^2 LVOT SV:78.27 ml LVOT CO: 4.31 l/min LVOT CI: 2.02 l/min/m^2 Procedure Note Interface, External Ris In - 10/01/2018 1:14 PM COMMERCIAL PORTFOLIO MANAGER Transthoracic Echocardiography Report (TTE) Demographics Patient Name JUSTICE CASTELLON Date of Study 10/01/2018 LASHONDA Gender Male Visit Number [id number] Race Unknown Room Number C632 Number Date of 1960 Referring Physician Kayli Turner Age 58 year(s) Hand Sprayer Hank Sanchez Interpreting Belen Bird MD Physician Procedure Type of Study TTE procedure:2DECHO W DOPPLER(CW/PW/COLOR) (CHRIS) Indications:Acute Chest Pain/ Suspected CAD. Clinical History HGB 15.4 HCT 45.2 % NSTEMI HTN DM Height: 70 inches Weight: 95.25 kg (210 lbs) BSA: 2.13 m^2 BMI: 30.13 kg/m^2 HR: 55 bpm BP: 140/82 mmHg Summary Global LV systolic function mildly reduced. Normal LV wall thickness. Grade 1 diastolic dysfunction (impaired relaxation and low-normal LA pressure). LA size is normal . Estimated peak systolic PA pressure is 20-25 mmHg . The estimated RA pressure by IVC dynamics 5-10mmHg . Previous Study No prior exam available for comparison. Signature Findings Technical Quality: Technically adequate exam. Left Ventricle The left ventricle is chamber size (by PSLAX dimension) is small (male - LVIDd < 4.2cm) . Normal LV wall thickness. All of the LV segments are mildly hypokinetic . Estimated LVEF by qualitative assessment is mildly reduced (45-49%) . Grade 1 diastolic dysfunction (impaired relaxation and low-normal LA pressure). Global LV systolic function mildly reduced. Left Atrium LA size is normal . Right Ventricle Normal right ventricle structure and function. Right Atrium Normal right atrium. Aortic Valve Mild AoV cusp thickening. Mitral Valve Normal MV structure. Tricuspid Valve A trace of tricuspid regurgitation. Estimated peak systolic PA pressure is 20-25 mmHg . Pulmonic Valve Normal PV structure and function by limited views and Doppler. Aorta Aortic root size (SInus of Valsalva diameter) is mildly dilated. Pericardium No evidence of pericardial effusion. IVC/SVC/PA/PV/Pleural The estimated RA pressure by IVC dynamics 5-10mmHg . Chambers/Structures Left Atrium LA Dimension: 3.07 cm LA Area: 18 cm^2 LA Volume: 41.9 ml LA Vol. Index: 20 ml/m^2 Left Ventricle LVIDd: 4.53 cm LVEDV:98.98 ml LV Septum Diastolic: 0.74 cm LVEF 2D Cube: 62.4 % LV Septum Systolic: 3.62 cm LV PW Diastolic: 0.71 cm LV Length: 9.28 cm LV PW Systolic: 0.83 cm LVEDV Krueger's:168.9 ml LVEDVI: 79 ml/m^2 LVESV Krueger's:92.02 ml LVESVI: 43 ml/m^2 LVEF Krueger's: 45.5 % LVOT Diameter: 2.34 cm Aorta Ao Root S of Argenis.: 3.62 cm Doppler/Quantitative Measurements Mitral Valve MV Peak E-Wave: 0.51 m/s MV Peak A-Wave: 0.57 m/s E/A Ratio: 0.89 Peak Gradient: 1.06 mmHg Deceleration Time: 297.4 msec MV Maxi. Peak: Aortic Valve Peak Velocity: 1.22 m/s Mean Velocity: 0.82 m/s Peak Gradient: 5.96 mmHg Mean Gradient: 3.12 mmHg AV Area (continuity): 3.32 cm^2 AV VTI: 23.6 cm AV DVI: 0.77 LVOT Peak Velocity: 0.97 m/s Peak Gradient: 3.74 mmHg Mean Velocity: 0.64 m/s Mean Gradient: 1.93 mmHg LVOT Diameter: 2.34 cm LVOT VTI: 18.21 cm LVOT Area: 4.3 cm^2 LVOT SV:78.27 ml LVOT CO: 4.31 l/min LVOT CI: 2.02 l/min/m^2 Performing Organization Address City/[facility] Phone Number [facility] CPACS Troponin I (10/01/2018 6:18 AM COMMERCIAL PORTFOLIO MANAGER)Only the most recent of3 resultswithin the time period is included. Troponin I 1.35 (HH) 0.00 - 0.03 ng/mL [facility] Specimen Blood - Arm, Right Narrative Performed At Troponin I (TnI) levels must be interpreted [facility] in the context of the presenting symptoms and the clinical findings. Elevated TnI levels indicate myocardial damage, but are not specific for ischemic heart disease. Elevated TnI levels are seen in patients with other cardiac conditions (including myocarditis and congestive heart failure), and slight TnI elevations occur in patients with other conditions, including sepsis, renal failure, acidosis, acute neurological disease, and persistent tachyarrhythmia. Performing Organization Address City/State/Zipcode Phone Number [facility] [address] [place] [address] CENTER aPTT (10/01/2018 6:18 AM COMMERCIAL PORTFOLIO MANAGER)Only the most recent of3 resultswithin the time period is included. PTT 57.7 (H) 22.5 - 36.0 seconds [facility] Specimen Blood - Arm, Right Performing Organization Address City/State/Zipcode Phone Number [facility] [address] [place] [address] CENTER ECG 12 lead (10/01/2018 6:10 AM COMMERCIAL PORTFOLIO MANAGER)Only the most recent of2 resultswithin the time period is included. Narrative Performed At Ventricular Rate 54 BPM GE MUSE Atrial Rate 54 BPM P-R Interval 170 ms QRS Duration 90 ms Q-T Interval 432 ms QTC Calculation(Bazett) 409 ms P Copan 61 degrees R Copan 25 degrees T Copan 55 degrees Sinus bradycardia Otherwise normal ECG When compared with ECG of 30-SEP-2018 16:50, No significant change was found Confirmed by MD RUBI YOCHAI ([id number]) on 10/01/2018 7:37:19 AM Procedure Note Interface, External Ris In - 10/01/2018 7:37 AM COMMERCIAL PORTFOLIO MANAGER Ventricular Rate 54 BPM Atrial Rate 54 BPM P-R Interval 170 ms QRS Duration 90 ms Q-T Interval 432 ms QTC Calculation(Bazett) 409 ms P Copan 61 degrees R Copan 25 degrees T Copan 55 degrees Sinus bradycardia Otherwise normal ECG When compared with ECG of 30-SEP-2018 16:50, No significant change was found Confirmed by MD RUBI YOCHAI ([id number]) on 10/01/2018 7:37:19 AM Performing Organization Address City/[facility] Phone Number GE MUSE XR chest 1 view portable / bedside (09/30/2018 6:00 PM COMMERCIAL PORTFOLIO MANAGER) Narrative Performed At FINAL REPORT GE RIS AP view of the chest dated 09/30/2018 COMPARISON: September 17, 2011 CLINICAL INFORMATION: chest pain Comment:Heart is normal in size. Pulmonary vasculature is unremarkable. Lungs are clear. No pulmonary infiltrate or pleural effusion is present. Impression:No active cardiopulmonary disease or interval change. Signed: Prashanth Hunter MD Report Verified Date/Time:09/30/2018 19:55:13 Reading Location: [facility] C013 Consult Reading Room Procedure Note Interface, External Ris In - 09/30/2018 7:57 PM COMMERCIAL PORTFOLIO MANAGER FINAL REPORT AP view of the chest dated 09/30/2018 COMPARISON: September 17, 2011 CLINICAL INFORMATION: chest pain Comment: Heart is normal in size. Pulmonary vasculature is unremarkable. Lungs are clear. No pulmonary infiltrate or pleural effusion is present. Impression: No active cardiopulmonary disease or interval change. Signed: Prashanth Hunter MD Report Verified Date/Time: 09/30/2018 19:55:13 Reading Location: [facility] [id number] Consult Reading Room Performing Organization Address City/State/Zipcode Phone Number RIS B-type Natriuretic Factor (BNP) (09/30/2018 5:00 PM COMMERCIAL PORTFOLIO MANAGER) BNP <10 0 - 100 pg/mL [facility] Specimen Blood Performing Organization Address City/[facility] Phone Number [address] [address] C[place] Magnesium (09/30/2018 5:00 PM COMMERCIAL PORTFOLIO MANAGER) Magnesium 2.0 1.6 - 2.6 mg/dL [facility] Specimen Blood Performing Organization Address City/[facility] Phone Number [address] [address] [place] Hemoglobin A1c (09/30/2018 5:00 PM COMMERCIAL PORTFOLIO MANAGER) Hemoglobin A1C 8.5 (H) 4.3 - 6.1 % [facility] Specimen Blood Performing Organization Address [facility] Phone Number [address] [address] [phone] [place] Lipid panel (09/30/2018 5:00 PM COMMERCIAL PORTFOLIO MANAGER) Triglycerides 175 mg/dL [facility] Cholesterol 200 mg/dL [facility] HDL 40 mg/dL [facility] LDL Calculated 125 mg/dL [facility] Specimen Blood Narrative Performed At Triglyceride Reference Range: [facility] Low Risk <150 [id number] High Risk 200-499 Very High Risk>=500 Cholesterol Reference Range: Low Risk <200 Wsgycnhqun440-180 High Risk>240 HDL Cholesterol Reference Range: Low Risk >=60 High Risk <40 LDL Cholesterol Reference Range: Optimal<100 Near Rdnbgba167-652 Ueusjpkgoc453-077 Kjsm929-782 Very High >=190 Performing Organization Address City/State/Zipcode Phone Number [facility] [address] [place] [address] CENTER Comprehensive metabolic panel (09/30/2018 5:00 PM COMMERCIAL PORTFOLIO MANAGER) Protein, Total 7.2 6.0 - 8.3 gm/dL [facility] Albumin 4.3 3.5 - 5.0 g/dL [facility] Alkaline Phosphatase 108 40 - 150 U/L [facility] Total Bilirubin 1.0 0.2 - 1.2 mg/dL [facility] Sodium 138 136 - 145 meq/L [facility] Potassium 4.2 3.5 - 5.1 meq/L [facility] Chloride 106 98 - 107 meq/L [facility] CO2 24 22 - 29 meq/L [facility] BUN 19 7 - 21 mg/dL [facility] Creatinine 0.88 0.57 - 1.25 mg/dL [facility] Glucose 174 (H) 70 - 105 mg/dL [facility] Calcium 9.8 8.4 - 10.2 mg/dL [facility] AST 23 5 - 34 U/L [facility] ALT 14 6 - 55 U/L [facility] EGFR 89Comment: ESTIMATED GFR mL/min/1.73 sq m [facility] IS NOT ACCURATE [facility] CREATININE CLEARANCE IN PREDICTING GLOMERULAR FILTRATION RATE. ESTIMATED GFR IS NOT APPLICABLE FOR DIALYSIS PATIENTS. Specimen Blood Performing Organization Address City/State/Zipcode Phone Number [facility] [address] [place] [address] CENTER after 11/02/2017 Insurance Payer Benefit Plan / Subscriber ID Type Phone Address Group BLUE CROSS/BLUE BCBS PPO POS EPO xxxxxxxxxxxx PPO [phone] [address] [place] [address] Advance Directives For more information, please contact:[facility] [place] [address] [phone] Code Status Date Activated Date Inactivated Comments Full Code 10/01/2018 5:52 PM This code status was determined by: Patient Full Code 10/01/2018 8:11 AM 10/01/2018 5:52 PM This code status was determined by: Patient
--- OUTSIDE RECORDS SUMMARY | 2018-11-03 11:17 | XMS REPORT ---
:1960 [facility] Address [address] [place] [address] Care Team Providers Name Role Phone BRAD HUAJOANNMONSERRAT Unavailable Unavailable Problems This patient has no known problems. Allergies, Adverse Reactions, Alerts This patient has no known allergies or adverse reactions. Medications This patient has no known medications. Results Test Description Test Time Test Comments Text Results Atomic Results Result Comments POCT-GLUCOSE METER 2018-10-02 08:24:00 Test Item Value Reference Range Comments POC-GLUCOSE METER (BEAKER) (test 199 mg/dL 70-110 TESTED AT [facility] [address] [place] [address] xnpe=1721) [facility] [address] BASIC METABOLIC [id number] 04:13:00 Test Item Value Reference Range Comments SODIUM (BEAKER) (test 138 meq/L 136-145 fgxf=011) POTASSIUM (BEAKER) (test 4.2 meq/L 3.5-5.1 pgsj=107) CHLORIDE (BEAKER) (test 105 meq/L 98-107 mqch=087) CO2 (BEAKER) (test 25 meq/L 22-29 bqts=908) BLOOD UREA NITROGEN 17 mg/dL 7-21 (BEAKER) (test lxev=459) CREATININE (BEAKER) (test 0.98 mg/dL 0.57-1.25 igdt=549) GLUCOSE RANDOM (BEAKER) 196 mg/dL 70-105 (test uhtl=601) CALCIUM (BEAKER) (test 9.3 mg/dL 8.4-10.2 itus=604) EGFR (BEAKER) (test 78 mL/min/1.73 sq m ESTIMATED GFR IS NOT lmhf=5573) ACCURATE CREATININE CLEARANCE IN PREDICTING GLOMERULAR FILTRATION RATE. ESTIMATED GFR IS NOT APPLICABLE FOR DIALYSIS PATIENTS. CBC W/PLT COUNT & AUTO [id number] 04:00:00 Test Item Value Reference Range Comments WHITE BLOOD CELL COUNT (BEAKER) (test rtkh=638) 8.3 K/ L 3.5-10.5 RED BLOOD CELL COUNT (BEAKER) (test cxuw=682) 5.01 M/ L 4.63-6.08 HEMOGLOBIN (BEAKER) (test vnki=503) 15.4 GM/DL 13.7-17.5 HEMATOCRIT (BEAKER) (test sywy=114) 46.3 % 40.1-51.0 MEAN CORPUSCULAR VOLUME (BEAKER) (test zzls=006) 92.4 fL 79.0-92.2 MEAN CORPUSCULAR HEMOGLOBIN (BEAKER) (test 30.7 pg 25.7-32.2 ofvq=344) MEAN CORPUSCULAR HEMOGLOBIN CONC (BEAKER) (test 33.3 GM/DL 32.3-36.5 tnjc=065) RED CELL DISTRIBUTION WIDTH (BEAKER) (test 13.0 % 11.6-14.4 hfhl=945) PLATELET COUNT (BEAKER) (test vmvs=297) 273 K/CU MM 150-450 MEAN PLATELET VOLUME (BEAKER) (test hjvc=614) 9.1 fL 9.4-12.4 NUCLEATED RED BLOOD CELLS (BEAKER) (test 0 /100 WBC 0-0 tozp=536) NEUTROPHILS RELATIVE PERCENT (BEAKER) (test 50 % grdo=165) LYMPHOCYTES RELATIVE PERCENT (BEAKER) (test 35 % wlso=188) MONOCYTES RELATIVE PERCENT (BEAKER) (test 11 % hjvu=626) EOSINOPHILS RELATIVE PERCENT (BEAKER) (test 2 % ajbj=600) BASOPHILS RELATIVE PERCENT (BEAKER) (test 1 % adxg=370) NEUTROPHILS ABSOLUTE COUNT (BEAKER) (test 4.12 K/ L 1.78-5.38 ftet=072) LYMPHOCYTES ABSOLUTE COUNT (BEAKER) (test 2.86 K/ L 1.32-3.57 jksr=157) MONOCYTES ABSOLUTE COUNT (BEAKER) (test 0.94 K/ L 0.30-0.82 vqkt=667) EOSINOPHILS ABSOLUTE COUNT (BEAKER) (test 0.18 K/ L 0.04-0.54 knrc=198) BASOPHILS ABSOLUTE COUNT (BEAKER) (test 0.05 K/ L 0.01-0.08 sosc=935) IMMATURE GRANULOCYTES-RELATIVE PERCENT (BEAKER) 1 % 0-1 (test pkfg=5279) POCT-GLUCOSE [id number] 21:42:00 Test Item Value Reference Range Comments POC-GLUCOSE METER (BEAKER) 218 mg/dL 70-110 TESTED AT [address] (test bqra=2037) [place] [id number] CBC (HEMOGRAM ONLY)2018-10-01 19:29:00 Test Item Value Reference Range Comments WHITE BLOOD CELL COUNT (BEAKER) (test uiym=363) 7.5 K/ L 3.5-10.5 RED BLOOD CELL COUNT (BEAKER) (test hwfk=370) 5.30 M/ L 4.63-6.08 HEMOGLOBIN (BEAKER) (test pnod=569) 16.4 GM/DL 13.7-17.5 HEMATOCRIT (BEAKER) (test fkdy=046) 48.0 % 40.1-51.0 MEAN CORPUSCULAR VOLUME (BEAKER) (test zyla=417) 90.6 fL 79.0-92.2 MEAN CORPUSCULAR HEMOGLOBIN (BEAKER) (test 30.9 pg 25.7-32.2 pert=697) MEAN CORPUSCULAR HEMOGLOBIN CONC (BEAKER) (test 34.2 GM/DL 32.3-36.5 orhc=126) RED CELL DISTRIBUTION WIDTH (BEAKER) (test 13.0 % 11.6-14.4 lcii=736) PLATELET COUNT (BEAKER) (test iuwj=602) 323 K/CU MM 150-450 MEAN PLATELET VOLUME (BEAKER) (test gizh=577) 9.2 fL 9.4-12.4 NUCLEATED RED BLOOD CELLS (BEAKER) (test 0 /100 WBC 0-0 drqd=523) POCT-GLUCOSE [id number] 17:50:00 Test Item Value Reference Range Comments POC-GLUCOSE METER (BEAKER) 139 mg/dL 70-110 TESTED AT [address] (test pvuz=3545) [place] [address] [id number] 16:49:00 Test Item Value Reference Range Comments ACTIVATED CLOTTING TIME 114 sec TESTED AT [address] (BEAKER) (test rewj=812) [place] [address] POCT-GLUCOSE [id number] 12:01:00 Test Item Value Reference Range Comments POC-GLUCOSE METER (BEAKER) 235 mg/dL 70-110 TESTED AT [facility] [address] [place] [address] (test bmgv=0643) [place] [id number] HEMOGLOBIN [id number] 09:12:00 Test Item Value Reference Range Comments HEMOGLOBIN A1C (BEAKER) (test mruf=750) 8.5 % 4.3-6.1 POCT-GLUCOSE [id number] 08:19:00 Test Item Value Reference Range Comments POC-GLUCOSE METER (BEAKER) 284 mg/dL 70-110 TESTED AT [address] (test aibl=4549) [place] [address] TROPONIN [id number] 06:57:00 Test Item Value Reference Range Comments TROPONIN I (BEAKER) (test tcpo=013) 1.35 ng/mL 0.00-0.03 Troponin I (TnI) levels must be interpreted in the context of the presenting symptoms and the clinical findings. Elevated TnI levels indicate myocardial damage, but are not specific for ischemic heart disease. Elevated TnI levels are seen in patients with other cardiac conditions (including myocarditis and congestive heart failure), and slight TnI elevations occur in patients with other conditions, including sepsis, renal failure, acidosis, acute neurological disease, and persistent tachyarrhythmia.[id number] 06:43:00 Test Item Value Reference Range Comments PARTIAL THROMBOPLASTIN TIME (BEAKER) (test 57.7 seconds 22.5-36.0 ganw=071) TROPONIN [id number] 01:21:00 Test Item Value Reference Range Comments TROPONIN I (BEAKER) (test itnb=672) 1.68 ng/mL 0.00-0.03 Troponin I (TnI) levels must be interpreted in the context of the presenting symptoms and the clinical findings. Elevated TnI levels indicate myocardial damage, but are not specific for ischemic heart disease. Elevated TnI levels are seen in patients with other cardiac conditions (including myocarditis and congestive heart failure), and slight TnI elevations occur in patients with other conditions, including sepsis, renal failure, acidosis, acute neurological disease, and persistent tachyarrhythmia.[id number] 00:50:00 Test Item Value Reference Range Comments PARTIAL THROMBOPLASTIN TIME (BEAKER) (test 42.4 seconds 22.5-36.0 xpjy=862) POCT-GLUCOSE [id number] 21:47:00 Test Item Value Reference Range Comments POC-GLUCOSE METER (BEAKER) 277 mg/dL 70-110 TESTED AT [facility] [address] (test hhzz=4765) [facility] [address] RAD, CHEST, 1 VIEW, NON [id number] 19:55:00Reason for exam:->chest painShould this be performed at the bedside?->YesFINAL REPORT AP view of the chest dated 09/30/2018 COMPARISON: September 17, 2011 CLINICAL INFORMATION: chest pain Comment: Heart is normal in size. Pulmonary vasculature is unremarkable. Lungs are clear. No pulmonary infiltrate or pleural effusion is present. Impression: No active cardiopulmonary disease or interval change. Signed: Prashanth Hunter Verified Date/Time: 09/30/2018 19:55:13 Reading Location: [address] Consult Reading Room B-TYPE NATRIURETIC FACTOR (BNP)2018-09-30 18:03:00 Test Item Value Reference Range Comments B-TYPE NATRIURETIC PEPTIDE (BEAKER) (test pkrc=262) < pg/mL 0-100 TROPONIN [id number] 18:00:00 Test Item Value Reference Range Comments TROPONIN I (BEAKER) (test vdhx=480) 0.98 ng/mL 0.00-0.03 Troponin I (TnI) levels must be interpreted in the context of the presenting symptoms and the clinical findings. Elevated TnI levels indicate myocardial damage, but are not specific for ischemic heart disease. Elevated TnI levels are seen in patients with other cardiac conditions (including myocarditis and congestive heart failure), and slight TnI elevations occur in patients with other conditions, including sepsis, renal failure, acidosis, acute neurological disease, and persistent tachyarrhythmia.[id number] 17:46:00 Test Item Value Reference Range Comments MAGNESIUM (BEAKER) (test jqdl=754) 2.0 mg/dL 1.6-2.6 COMPREHENSIVE METABOLIC [id number] 17:46:00 Test Item Value Reference Range Comments TOTAL PROTEIN (BEAKER) 7.2 gm/dL 6.0-8.3 (test nnpf=149) ALBUMIN (BEAKER) (test 4.3 g/dL 3.5-5.0 amfo=1909) ALKALINE PHOSPHATASE 108 U/L 40-150 (BEAKER) (test qitf=192) BILIRUBIN TOTAL (BEAKER) 1.0 mg/dL 0.2-1.2 (test nuta=054) SODIUM (BEAKER) (test 138 meq/L 136-145 sgtk=236) POTASSIUM (BEAKER) (test 4.2 meq/L 3.5-5.1 fggy=829) CHLORIDE (BEAKER) (test 106 meq/L 98-107 fubf=038) CO2 (BEAKER) (test 24 meq/L 22-29 xypf=004) BLOOD UREA NITROGEN 19 mg/dL 7-21 (BEAKER) (test alzn=304) CREATININE (BEAKER) (test 0.88 mg/dL 0.57-1.25 fcgr=876) GLUCOSE RANDOM (BEAKER) 174 mg/dL 70-105 (test nozv=149) CALCIUM (BEAKER) (test 9.8 mg/dL 8.4-10.2 hwda=894) AST (SGOT) (BEAKER) (test 23 U/L 5-34 bpqx=947) ALT (SGPT) (BEAKER) (test 14 U/L 6-55 bkwv=169) EGFR (BEAKER) (test 89 mL/min/1.73 sq m ESTIMATED GFR IS NOT bymm=2359) ACCURATE CREATININE CLEARANCE IN PREDICTING GLOMERULAR FILTRATION RATE. ESTIMATED GFR IS NOT APPLICABLE FOR DIALYSIS PATIENTS. LIPID [id number] 17:46:00 Test Item Value Reference Range Comments TRIGLYCERIDES (BEAKER) (test qbkl=102) 175 mg/dL CHOLESTEROL (BEAKER) (test uktm=547) 200 mg/dL HDL CHOLESTEROL (BEAKER) (test dyha=028) 40 mg/dL LDL CHOLESTEROL CALCULATED (BEAKER) (test 125 mg/dL zzqt=741) Triglyceride Reference Range: Low Risk <150 Borderline 150- 199 High Risk 200-499 Very High Risk >=500Cholesterol Reference Range: Low Risk <200 Borderline 200-239 High Risk > 240HDL Cholesterol Reference Range: Low Risk >=60 High Risk <40LDL Cholesterol Reference Range: Optimal <100 Near Optimal 100-129 Borderline 130-159 High 160-189 Very High [id number] 17:34:00 Test Item Value Reference Range Comments PARTIAL THROMBOPLASTIN TIME (BEAKER) (test 46.0 seconds 22.5-36.0 jeew=219) CBC W/PLT COUNT & AUTO [id number] 17:28:00 Test Item Value Reference Range Comments WHITE BLOOD CELL COUNT (BEAKER) (test cfvp=529) 10.2 K/ L 3.5-10.5 RED BLOOD CELL COUNT (BEAKER) (test hrif=192) 5.01 M/ L 4.63-6.08 HEMOGLOBIN (BEAKER) (test qpuv=005) 15.4 GM/DL 13.7-17.5 HEMATOCRIT (BEAKER) (test zttg=737) 45.2 % 40.1-51.0 MEAN CORPUSCULAR VOLUME (BEAKER) (test pevm=462) 90.2 fL 79.0-92.2 MEAN CORPUSCULAR HEMOGLOBIN (BEAKER) (test 30.7 pg 25.7-32.2 xxwg=230) MEAN CORPUSCULAR HEMOGLOBIN CONC (BEAKER) (test 34.1 GM/DL 32.3-36.5 qkks=304) RED CELL DISTRIBUTION WIDTH (BEAKER) (test 12.7 % 11.6-14.4 zail=484) PLATELET COUNT (BEAKER) (test bpms=064) 288 K/CU MM 150-450 MEAN PLATELET VOLUME (BEAKER) (test yequ=571) 9.1 fL 9.4-12.4 NUCLEATED RED BLOOD CELLS (BEAKER) (test 0 /100 WBC 0-0 icyg=017) NEUTROPHILS RELATIVE PERCENT (BEAKER) (test 50 % snck=427) LYMPHOCYTES RELATIVE PERCENT (BEAKER) (test 38 % lfso=145) MONOCYTES RELATIVE PERCENT (BEAKER) (test 9 % cbku=533) EOSINOPHILS RELATIVE PERCENT (BEAKER) (test 1 % vbip=791) BASOPHILS RELATIVE PERCENT (BEAKER) (test 1 % vnqb=168) NEUTROPHILS ABSOLUTE COUNT (BEAKER) (test 5.06 K/ L 1.78-5.38 jcbk=979) LYMPHOCYTES ABSOLUTE COUNT (BEAKER) (test 3.89 K/ L 1.32-3.57 cuxz=663) MONOCYTES ABSOLUTE COUNT (BEAKER) (test 0.87 K/ L 0.30-0.82 eaxa=990) EOSINOPHILS ABSOLUTE COUNT (BEAKER) (test 0.12 K/ L 0.04-0.54 dexf=759) BASOPHILS ABSOLUTE COUNT (BEAKER) (test 0.07 K/ L 0.01-0.08 wpjr=071) IMMATURE GRANULOCYTES-RELATIVE PERCENT (BEAKER) 2 % 0-1 (test iqkg=8639) POCT-GLUCOSE [id number] 17:20:00 Test Item Value Reference Range Comments POC-GLUCOSE METER (BEAKER) 212 mg/dL 70-110 TESTED AT [facility] [address] [facility] (test uadg=9392) [facility] [address]
--- NOTE | 2018-11-03 12:09 | EDPHYS ---
Physician Documentation [facility] Name: Kevin Castellon Age: 58 yrs Sex: Male : 1960 Arrival Date: 11/03/2018 Time: 11:19 Bed 20 Private MD: London Aguiar R ED Physician Luis Fernando Whiteside HPI: 11/03 11:59 This 58 yrs old Male presents to ER via Ambulatory with complaints of Hand tyrone Swelling. 11:59 The patient or guardian reports decreased range of motion, pain, swelling, tenderness. tyrone The complaints affect the left hand diffusely. Context: The problem was sustained at home. Onset: The symptoms/episode began/occurred 2 day(s) ago. Modifying factors: The symptoms are alleviated by elevation, holding still, the symptoms are aggravated by movement, dependent position. Associated signs and symptoms: The patient has no apparent associated signs or symptoms. Severity of symptoms: At their worst the symptoms were mild, moderate, in the emergency department the symptoms have improved, mildly. The patient has not experienced similar symptoms in the past. Historical: - Allergies: 11:46 Sulfa (Sulfonamide Antibiotics); ph - PMHx: 11:46 Diabetes - NIDDM; Hypertension; ph - PSHx: 11:46 Appendectomy; Hernia repair; ph - Immunization history:: Adult Immunizations unknown. - Social history:: Smoking status: Patient/guardian denies using tobacco. - Ebola Screening: : No symptoms or risks identified at this time. - Family history:: not pertinent. ROS: 11:59 Constitutional: Negative for fever, chills, and weight loss, Eyes: Negative for injury, tyrone pain, redness, and discharge, ENT: Negative for injury, pain, and discharge, Neck: Negative for injury, pain, and swelling, Cardiovascular: Negative for chest pain, palpitations, and edema, Respiratory: Negative for shortness of breath, cough, wheezing, and pleuritic chest pain, Abdomen/GI: Negative for abdominal pain, nausea, vomiting, diarrhea, and constipation, Back: Negative for injury and pain, : Negative for injury, bleeding, discharge, and swelling, Neuro: Negative for headache, weakness, numbness, tingling, and seizure, Psych: Negative for depression, anxiety, suicide ideation, homicidal ideation, and hallucinations, Allergy/Immunology: Negative for hives, rash, and allergies, Endocrine: Negative for neck swelling, polydipsia, polyuria, polyphagia, and marked weight changes, Hematologic/Lymphatic: Negative for swollen nodes, abnormal bleeding, and unusual bruising. 11:59 MS/extremity: Positive for decreased range of motion, pain, swelling, tenderness, of the right hand. 11:59 Skin: Positive for cellulitis, of the dorsal aspect of proximal phalanx of right thumb, dorsum of right hand, palm of right hand and Right first web space. Exam: 11:59 Constitutional: This is a well developed, well nourished patient who is awake, alert, tyrone and in no acute distress. Head/Face: Normocephalic, atraumatic. Eyes: Pupils equal round and reactive to light, extra-ocular motions intact. Lids and lashes normal. Conjunctiva and sclera are non-icteric and not injected. Cornea within normal limits. Periorbital areas with no swelling, redness, or edema. ENT: Nares patent. No nasal discharge, no septal abnormalities noted. Tympanic membranes are normal and external auditory canals are clear. Oropharynx with no redness, swelling, or masses, exudates, or evidence of obstruction, uvula midline. Mucous membranes moist. Neck: Trachea midline, no thyromegaly or masses palpated, and no cervical lymphadenopathy. Supple, full range of motion without nuchal rigidity, or vertebral point tenderness. No Meningismus. Chest/axilla: Normal chest wall appearance and motion. Nontender with no deformity. No lesions are appreciated. Cardiovascular: Regular rate and rhythm with a normal S1 and S2. No gallops, murmurs, or rubs. Normal PMI, no JVD. No pulse deficits. Respiratory: Lungs have equal breath sounds bilaterally, clear to auscultation and percussion. No rales, rhonchi or wheezes noted. No increased work of breathing, no retractions or nasal flaring. Abdomen/GI: Soft, non-tender, with normal bowel sounds. No distension or tympany. No guarding or rebound. No evidence of tenderness throughout. Back: No spinal tenderness. No costovertebral tenderness. Full range of motion. Skin: Warm, dry with normal turgor. Normal color with no rashes, no lesions, and no evidence of cellulitis. Neuro: Awake and alert, GCS 15, oriented to person, place, time, and situation. Cranial nerves II-XII grossly intact. Motor strength 5/5 in all extremities. Sensory grossly intact. Cerebellar exam normal. Normal gait. Psych: Awake, alert, with orientation to person, place and time. Behavior, mood, and affect are within normal limits. 11:59 Musculoskeletal/extremity: Extremities: decreased ROM, pain, swelling, tenderness, ROM: full active range of motion, full passive range of motion, Circulation is intact in all extremities. Sensation intact. DVT Exam: negative Homans' sign noted on exam, no appreciated bluish discoloration, pain, swelling, tenderness, erythema, increased warmth. Vital Signs: 11:46 BP 160 / 89; Pulse 64; Resp 18; Temp 98.7; Pulse Ox 95% on R/A; Weight 92.99 kg; Height ph 5 ft. 10 in. (177.80 cm); 11:46 Body Mass Index 29.41 (92.99 kg, 177.80 cm) ph MDM: 11:38 Patient [address] [facility] 11:59 Data reviewed: vital signs, nurses notes. tyrone Administered Medications: 12:20 Drug: Clindamycin 600 mg Route: IM; Site: right gluteus; sv 12:40 Follow up: Response: No adverse reaction sv 12:26 Drug: Clindamycin 300 mg Route: PO; sv 12:41 Follow up: Response: No adverse reaction sv 12:26 Drug: Doxycycline 200 mg Route: PO; sv 12:41 Follow up: Response: No adverse reaction sv Disposition: 11/03/18 12:08 Discharged to Home. Impression: Cellulitis and acute lymphangitis of other parts of limb - hand, Type 2 diabetes mellitus. - Condition is Stable. - Discharge Instructions: Type 2 Diabetes Mellitus, Diagnosis, Adult, Cellulitis, Adult, Pwls-ia-Kmed, Diabetes Mellitus and Food, Type 2 Diabetes Mellitus, Diagnosis, Adult, Edrw-xz-Uusq. - Prescriptions for Clindamycin HCl 300 mg Oral Capsule - take 1 capsule by ORAL route every 6 hours for 10 days; 40 capsule. Doxycycline Hyclate 100 mg Oral Tablet - take 1 tablet by ORAL route every 12 hours; 20 tablet. - Work release form, Medication Reconciliation Form, Thank You Letter, Antibiotic Education, Prescription Opioid Use form. - Follow up: London Aguiar MD; When: 2 - 3 days; Reason: Recheck today's complaints, Continuance of care, Re-evaluation by your physician. - Problem is new. - Symptoms have improved. Signatures: Charu Lui RN RN sv Luis Fernando Whiteside MD MD cha Hall, Patricia RN RN ph Corrections: (The following items were deleted from the chart) 12:40 12:03 Ice pack ordered. tyrone 12:42 12:08 11/03/2018 12:08 Discharged to Home. Impression: Cellulitis and acute sv lymphangitis of other parts of limb - hand; Type 2 diabetes mellitus. Condition is Stable. Forms are Medication Reconciliation Form, Thank You Letter, Antibiotic Education, Prescription Opioid Use. Follow up: London Aguiar; When: 2 - 3 days; Reason: Recheck today's complaints, Continuance of care, Re-evaluation by your physician. Problem is new. Symptoms have improved. tyrone
--- NOTE | 2018-11-03 12:09 | ER ---
Nurse's Notes [facility] Name: Kevin Castellon Age: 58 yrs Sex: Male : 1960 Arrival Date: 11/03/2018 Time: 11:19 Bed 20 Private MD: London Aguiar R Diagnosis: Cellulitis and acute lymphangitis of other parts of limb-hand;Type 2 diabetes mellitus Presentation: 11/03 11:44 Presenting complaint: Patient states: R hand swelling x 2-3 days, states, " There was a ph bump on there and I mashed it and clear fluid came out." redness and swelling noted to R hand, pt denies fever, N/V/D. Transition of care: patient was not received from another setting of care. Onset of symptoms was November 03, 2018. Risk Assessment: Do you want to hurt yourself or someone else? Patient reports no desire to harm self or others. Initial Sepsis Screen: Does the patient meet any 2 criteria? No. Patient's initial sepsis screen is negative. Does the patient have a suspected source of infection? Yes: Skin breakdown/wound. Care prior to arrival: None. 11:44 Method Of Arrival: Ambulatory ph 11:44 Acuity: HUGH 3 ph Historical: - Allergies: 11:46 Sulfa (Sulfonamide Antibiotics); ph - PMHx: 11:46 Diabetes - NIDDM; Hypertension; ph - PSHx: 11:46 Appendectomy; Hernia repair; ph - Immunization history:: Adult Immunizations unknown. - Social history:: Smoking status: Patient/guardian denies using tobacco. - Ebola Screening: : No symptoms or risks identified at this time. - Family history:: not pertinent. Screenin:15 Abuse screen: Denies threats or abuse. Denies injuries from another. Nutritional sv screening: No deficits noted. Tuberculosis screening: No symptoms or risk factors identified. Fall Risk None identified. Assessment: 12:15 General: Appears in no apparent distress. uncomfortable, well groomed, well developed, sv Behavior is calm, cooperative, appropriate for age. Pain: Complains of pain in right hand Pain currently is 5 out of 10 on a pain scale. Neuro: Level of Consciousness is awake, alert, obeys commands, Oriented to person, place, time, situation, Moves all extremities. Full function Gait is steady, Speech is normal. Cardiovascular: Patient's skin is warm and dry. Respiratory: Respiratory effort is even, unlabored, Respiratory pattern is regular, symmetrical. Derm: Skin is pink, warm \\T\\ dry. Musculoskeletal: Range of motion: intact in all extremities, Swelling present in right hand with redness. 12:41 Reassessment: Patient appears in no apparent distress at this time. No changes from sv previously documented assessment. Patient and/or family updated on plan of care and expected duration. Pain level reassessed. Patient is alert, oriented x 3, equal unlabored respirations, skin warm/dry/pink. Vital Signs: 11:46 BP 160 / 89; Pulse 64; Resp 18; Temp 98.7; Pulse Ox 95% on R/A; Weight 92.99 kg; Height ph 5 ft. 10 in. (177.80 cm); 11:46 Body Mass Index 29.41 (92.99 kg, 177.80 cm) ph ED Course: 11:19 Patient arrived in ED. mr 11:19 London Aguiar MD is Private Physician. mr 11:38 Luis Fernando Whiteside MD is Attending Physician. tyrone 11:45 Triage completed. ph 11:46 Arm band placed on Patient placed in an exam room. ph 12:00 Charu Lui RN is Primary Nurse. sv 12:07 London Aguiar MD is Referral Physician. tyrone 12:15 Patient has correct armband on for positive identification. Bed in low position. Call sv light in reach. Adult w/ patient. Pulse ox on. NIBP on. Door closed. Head of bed elevated. 12:41 No provider procedures requiring assistance completed. Patient did not have IV access sv during this emergency room visit. Administered Medications: 12:20 Drug: Clindamycin 600 mg Route: IM; Site: right gluteus; sv 12:40 Follow up: Response: No adverse reaction sv 12:26 Drug: Clindamycin 300 mg Route: PO; sv 12:41 Follow up: Response: No adverse reaction sv 12:26 Drug: Doxycycline 200 mg Route: PO; sv 12:41 Follow up: Response: No adverse reaction sv Outcome: 12:08 Discharge ordered by . tyrone 12:41 Discharged to home ambulatory, with family. sv 12:41 Condition: stable 12:41 Discharge instructions given to patient, family, Instructed on discharge instructions, follow up and referral plans. medication usage, Demonstrated understanding of instructions, follow-up care, medications, Prescriptions given X 2. 12:42 Patient left the ED. sv Signatures: Charu Lui RN RN sv Anderson, Corey, MD MD [facility] mr Alexa Ferraro RN RN ph
[2018-11-03] MEDS ORDERED: CLINDAMYCIN HCL 150 MG CAP ONE (12:15)
[2018-11-03] MEDS ORDERED: DOXYCYCLINE 100 MG CAP PO ONE (12:15)
[2018-11-03] MEDS ORDERED: CLINDAMYCIN IV 150 MG/ML (4 mL) VIAL ONE (12:19)
[2018-11-03 12:56] VITALS: BP 160/89; TEMP 98.7; O2SAT 95
== END 2018-11-03 12:42 | disposition home or self-care (01) ==
LOC: ER 11:14
DX: L03.113 Cellulitis of right upper limb (principal); L03.91 Acute lymphangitis, unspecified; E11.9 Type 2 diabetes mellitus without complications; I10 Essential (primary) hypertension; Z88.2 Allergy status to sulfonamides
CPT/HCPCS: 96372; 99283; S0077

== ENCOUNTER 2018-11-17 06:58 | Emergency (ER) | payer BC ==
--- OUTSIDE RECORDS SUMMARY | 2018-11-17 07:02 | XMS REPORT | Clinical Summary ---
:1960 Author Organization [facility] Address [address] [place] [address] Care Team Providers Name Role Phone Pcp, [...] 09/30/2018 Orders Only General Internal Medicine after 11/16/2017 Social History Tobacco Use Types Packs/Day Years [...] Taken Blood Pressure 113/79 10/02/2018 7:30 AM TOOL GRINDER OPERATOR EXTERNAL Pulse 61 10/02/2018 7:30 AM TOOL GRINDER OPERATOR EXTERNAL Temperature 36.6 C (97.9 F) 10/02/2018 7:30 AM TOOL GRINDER OPERATOR EXTERNAL Respiratory Rate 20 10/02/2018 7:30 AM TOOL GRINDER OPERATOR EXTERNAL Oxygen Saturation 94% 10/02/2018 7:30 AM TOOL GRINDER OPERATOR EXTERNAL Inhaled Oxygen Concentration - - Weight 93.6 kg (206 lb 6.4 oz) 10/02/2018 7:30 AM TOOL GRINDER OPERATOR EXTERNAL Height 178 cm (5' 10.08") 10/01/2018 3:41 PM TOOL GRINDER OPERATOR EXTERNAL Body Mass Index 29.55 10/02/2018 7:30 AM TOOL GRINDER OPERATOR EXTERNAL Plan of Treatment Not on file Procedures Procedure Name Priority Date/Time Associated Comments Diagnosis VASCULAR DIAGRAM -SCAN 10/24/2018 4:41 PM TOOL GRINDER OPERATOR EXTERNAL RHYTHM STRIP - SCAN 10/15/2018 2:31 PM TOOL GRINDER OPERATOR EXTERNAL REPORT OF PROCEDURE - 10/15/2018 2:31 ENDOSCOPY SCAN PM TOOL GRINDER OPERATOR EXTERNAL CARDIAC CATH REPORT - 10/15/2018 2:31 SCAN PM TOOL GRINDER OPERATOR EXTERNAL TRANSFUSION SERVICE 10/02/2018 6:02 REPORT - SCAN PM TOOL GRINDER OPERATOR EXTERNAL POCT-GLUCOSE METER Routine 10/02/2018 7:28 Results for this AM TOOL GRINDER OPERATOR EXTERNAL procedure are in the results section. CBC W/PLT COUNT & AUTO Routine 10/02/2018 3:33 Results for this DIFFERENTIAL AM TOOL GRINDER OPERATOR EXTERNAL procedure are in the results section. CBC W/PLT COUNT & AUTO Routine 10/02/2018 3:33 Results for this DIFFERENTIAL AM TOOL GRINDER OPERATOR EXTERNAL procedure are in the results section. BASIC METABOLIC PANEL Routine 10/02/2018 3:33 Results for this (7) AM TOOL GRINDER OPERATOR EXTERNAL procedure are in the results section. POCT-GLUCOSE METER Routine 10/01/2018 9:39 Results for this PM TOOL GRINDER OPERATOR EXTERNAL procedure are in the results section. CBC (HEMOGRAM ONLY) Routine 10/01/2018 7:22 Results for this PM TOOL GRINDER OPERATOR EXTERNAL procedure are in the results section. POCT-GLUCOSE METER Routine 10/01/2018 5:47 Results for this PM TOOL GRINDER OPERATOR EXTERNAL procedure are in the results section. L CATH & PCI 10/01/2018 4:48 Chest pain due to PM TOOL GRINDER OPERATOR EXTERNAL coronary artery disease POCT-ACT Routine 10/01/2018 4:39 Results for this PM TOOL GRINDER OPERATOR EXTERNAL procedure are in the results section. ECHOCARDIOGRAM REPORT 10/01/2018 1:53 - SCAN PM TOOL GRINDER OPERATOR EXTERNAL ABORH, MANUAL Routine 10/01/2018 11:10 Results for this AM TOOL GRINDER OPERATOR EXTERNAL procedure are in the results section. POCT-GLUCOSE METER Routine 10/01/2018 11:06 Results for this AM TOOL GRINDER OPERATOR EXTERNAL procedure are in the results section. TYPE AND SCREEN, Routine 10/01/2018 10:29 Results for this AUTOMATED AM TOOL GRINDER OPERATOR EXTERNAL procedure are in the results section. 2D ECHO W/ DOPPLER CHRIS 10/01/2018 9:27 Results for this (CW/PW/COLOR) AM TOOL GRINDER OPERATOR EXTERNAL procedure are in the results section. POCT-GLUCOSE METER Routine 10/01/2018 8:01 Results for this AM TOOL GRINDER OPERATOR EXTERNAL procedure are in the results section. APTT Routine 10/01/2018 6:18 Results for this AM TOOL GRINDER OPERATOR EXTERNAL procedure are in the results section. TROPONIN I Routine 10/01/2018 6:18 Results for this AM TOOL GRINDER OPERATOR EXTERNAL procedure are in the results section. ECG 12-LEAD Routine 10/01/2018 6:10 Results for this AM TOOL GRINDER OPERATOR EXTERNAL procedure are in the results section. TROPONIN I Routine 10/01/2018 12:29 Results for this AM TOOL GRINDER OPERATOR EXTERNAL procedure are in the results section. APTT Routine 10/01/2018 12:29 Results for this AM TOOL GRINDER OPERATOR EXTERNAL procedure are in the results section. POCT-GLUCOSE METER Routine 09/30/2018 9:44 Results for this PM TOOL GRINDER OPERATOR EXTERNAL procedure are in the results section. XR CHEST 1 VIEW STAT 09/30/2018 6:00 Results for this PORTABLE/BEDSIDE PM TOOL GRINDER OPERATOR EXTERNAL procedure are in the results section. CBC W/PLT COUNT & AUTO STAT 09/30/2018 5:00 Results for this DIFFERENTIAL PM TOOL GRINDER OPERATOR EXTERNAL procedure are in the results section. APTT Routine 09/30/2018 5:00 Results for this PM TOOL GRINDER OPERATOR EXTERNAL procedure are in the results section. HEMOGLOBIN A1C AP Routine 09/30/2018 5:00 Results for this PM TOOL GRINDER OPERATOR EXTERNAL procedure are in the results section. LIPID PANEL STAT 09/30/2018 5:00 Results for this PM TOOL GRINDER OPERATOR EXTERNAL procedure are in the results section. MAGNESIUM STAT 09/30/2018 5:00 Results for this PM TOOL GRINDER OPERATOR EXTERNAL procedure are in the results section. B-TYPE NATRIURETIC STAT 09/30/2018 5:00 Results for this FACTOR (BNP) PM TOOL GRINDER OPERATOR EXTERNAL procedure are in the results section. TROPONIN I STAT 09/30/2018 5:00 Results for this PM TOOL GRINDER OPERATOR EXTERNAL procedure are in the results section. COMPREHENSIVE STAT 09/30/2018 5:00 Results for this METABOLIC PANEL PM TOOL GRINDER OPERATOR EXTERNAL procedure are in the results section. CBC W/PLT COUNT & AUTO STAT 09/30/2018 5:00 Results for this DIFFERENTIAL PM TOOL GRINDER OPERATOR EXTERNAL procedure are in the results section. ECG 12-LEAD Routine 09/30/2018 4:50 PM TOOL GRINDER OPERATOR EXTERNAL Procedure Note - Interface, External Ris In - 09/30/2018 4:54 PM TOOL GRINDER OPERATOR EXTERNAL Ventricular Rate 59 BPM Atrial Rate 59 BPM P-R Interval 170 ms QRS Duration 96 ms Q-T Interval 422 ms QTC Calculation(Bazett) 417 ms P Aurora 59 degrees R Aurora 8 degrees T Aurora 34 degrees Sinus bradycardia Otherwise normal ECG No previous ECGs available ECG 12-LEAD STAT 09/30/2018 4:50 PM TOOL GRINDER OPERATOR EXTERNAL POCT-GLUCOSE METER Routine 09/30/2018 4:19 PM TOOL GRINDER OPERATOR EXTERNAL after 11/16/2017 Results VASCULAR DIAGRAM -SCAN (10/24/2018 4:41 PM TOOL GRINDER OPERATOR EXTERNAL) Narrative Performed At RHYTHM STRIP - SCAN (10/15/2018 2:31 PM TOOL GRINDER OPERATOR EXTERNAL) Narrative Performed At EKG-SCANNED (10/15/2018 2:31 PM TOOL GRINDER OPERATOR EXTERNAL) Narrative Performed At CARDIAC CATH REPORT - SCAN (10/15/2018 2:31 PM TOOL GRINDER OPERATOR EXTERNAL) Narrative Performed At TRANSFUSION SERVICE REPORT - SCAN (10/02/2018 6:02 PM TOOL GRINDER OPERATOR EXTERNAL) Narrative Performed At POC-Glucose meter (10/02/2018 7:28 AM TOOL GRINDER OPERATOR EXTERNAL)Only the most recent of7 resultswithin the time period is included. POC-Glucose Meter 199 (H)Comment: TESTED AT 70 - 110 mg/dL [facility] [address] [facility] [address] Specimen Blood Performing Organization Address City/State/Zipcode Phone Number [address] [address] CENTER CBC with platelet count + automated diff (10/02/2018 3:33 AM TOOL GRINDER OPERATOR EXTERNAL)Only the most recent of2 resultswithin the time period is included. WBC 8.3 3.5 - 10.5 K/L [facility] RBC 5.01 4.63 - 6.08 M/L [facility] Hemoglobin 15.4 13.7 - 17.5 GM/DL [facility] Hematocrit 46.3 40.1 - 51.0 % [facility] MCV 92.4 (H) 79.0 - 92.2 fL [facility] MCH 30.7 25.7 - 32.2 pg [facility] MCHC 33.3 32.3 - 36.5 GM/DL [facility] RDW 13.0 11.6 - 14.4 % [facility] Platelets 273 150 - 450 K/CU MM [facility] MPV 9.1 (L) 9.4 - 12.4 fL [facility] nRBC 0 0 - 0 /100 WBC [facility] % Neutros 50 % [facility] % Lymphs 35 % [facility] % Monos 11 % [facility] % Eos 2 % [facility] % Baso 1 % [facility] # Neutros 4.12 1.78 - 5.38 K/L [facility] # Lymphs 2.86 1.32 - 3.57 K/L [facility] # Monos 0.94 (H) 0.30 - 0.82 K/L [facility] # Eos 0.18 0.04 - 0.54 K/L [facility] # Baso 0.05 0.01 - 0.08 K/L [facility] Immature Granulocytes-Relative 1 0 - 1 % [facility] Specimen Blood - Arm, Right Performing Organization Address City/[facility] Cent[facility]ode Phone Number [address] [address] CENTER Basic metabolic panel (10/02/2018 3:33 AM TOOL GRINDER OPERATOR EXTERNAL) Sodium 138 136 - 145 meq/L [facility] Potassium 4.2 3.5 - 5.1 meq/L [facility] Chloride 105 98 - 107 meq/L [facility] CO2 25 22 - 29 meq/L [facility] BUN 17 7 - 21 mg/dL [facility] Creatinine 0.98 0.57 - 1.25 mg/dL [facility] Glucose 196 (H) 70 - 105 mg/dL [facility] Calcium 9.3 8.4 - 10.2 mg/dL [facility] EGFR 78Comment: ESTIMATED GFR IS mL/min/1.73 sq m [facility] NOT ACCURATE CREATININE [facility] CENTER CLEARANCE IN PREDICTING GLOMERULAR FILTRATION RATE. ESTIMATED GFR IS NOT APPLICABLE FOR DIALYSIS PATIENTS. Specimen Blood - Arm, Right Performing Organization Address [facility] Centercode Phone Number [address] [address] [phone] CENTER CBC (Hemogram only) (10/01/2018 7:22 PM TOOL GRINDER OPERATOR EXTERNAL) WBC 7.5 3.5 - 10.5 K/L [facility] RBC 5.30 4.63 - 6.08 M/L [facility] Hemoglobin 16.4 13.7 - 17.5 GM/DL [facility] Hematocrit 48.0 40.1 - 51.0 % [facility] MCV 90.6 79.0 - 92.2 fL [facility] MCH 30.9 25.7 - 32.2 pg [facility] MCHC 34.2 32.3 - 36.5 GM/DL [facility] RDW 13.0 11.6 - 14.4 % [facility] Platelets 323 150 - 450 K/CU MM [facility] MPV 9.2 (L) 9.4 - 12.4 fL [facility] nRBC 0 0 - 0 /100 WBC [facility] Specimen Blood - Arm, Right Performing Organization Address City/[facility]/[place] [address] [place] POC ACTIVATED CLOTTING TIME (10/01/2018 4:39 PM TOOL GRINDER OPERATOR EXTERNAL) Activated Clotting Time 114Comment: TESTED AT sec [facility] [address] [address] Specimen Blood Performing Organization Address City/[facility]/Zipcode Phone Number [address] [address] [place] ECHOCARDIOGRAM REPORT - SCAN (10/01/2018 1:53 PM TOOL GRINDER OPERATOR EXTERNAL) Narrative Performed At ABORH, manual (10/01/2018 11:10 AM TOOL GRINDER OPERATOR EXTERNAL) ABO Grouping A [facility] Rh Factor POS [facility] Specimen Blood Performing Organization Address City/[facility]/Zipcode Phone Number [facility] [address] [place], [place] [address] [phone] Type and screen, automated (10/01/2018 10:29 AM TOOL GRINDER OPERATOR EXTERNAL) ABO/RH AUTOMATED (BEAKER) A POSITIVE [facility] Ab Scrn NEGATIVE [facility] Specimen Blood - RBC bag Performing Organization Address City/[facility]/Zipcode Phone Number [facility] [address] [place] [address] [phone] Echo W/Doppler(CW/PW/Color) (10/01/2018 9:27 AM TOOL GRINDER OPERATOR EXTERNAL) Ejection Fraction [facility] CPA Narrative Performed At Transthoracic Echocardiography Report (TTE) [facility] Demographics Patient NameYAWS, DAVIDDate of Study10/01/2018 LASHONDA Gender Male Visit [id number] Race Unknown [id number] Number Date of 1960 Referring PhysicianKayli Turner [...] External Ris In - 10/01/2018 1:14 PM TOOL GRINDER OPERATOR EXTERNAL Transthoracic Echocardiography Report (TTE) Demographics Patient Name JUSTICE CASTELLON Date of Study 10/01/2018 LASHONDA Gender Male Visit Number [id number] Race Unknown Room Number C632 Number Date of 1960 Referring Physician Kayli Turner Age 58 year(s) Chuck Tender Hank Sanchez Interpreting Belen Bird MD Physician [...] LVOT CI: 2.02 l/min/m^2 Performing Organization Address City/[facility] Centercode Phone Number [facility] CPACS Troponin I (10/01/2018 6:18 AM TOOL GRINDER OPERATOR EXTERNAL)Only the most recent of3 resultswithin the time period is included. Troponin I 1.35 (HH) 0.00 - 0.03 ng/mL [facility] Specimen Blood - Arm, Right Narrative Performed At Troponin I (TnI) levels must be interpreted [facility] in the context of the presenting symptoms [...] tachyarrhythmia. Performing Organization Address City/State/Zipcode Phone Number [facility] [address] [place] [address] [phone] CENTER aPTT (10/01/2018 6:18 AM TOOL GRINDER OPERATOR EXTERNAL)Only the most recent of3 resultswithin the time period is included. PTT 57.7 (H) 22.5 - 36.0 seconds [facility] CENTER Specimen Blood - Arm, Right Performing Organization Address City/State/Zipcode Phone Number [facility] [address] [place] [address] CENTER ECG 12 lead (10/01/2018 6:10 AM TOOL GRINDER OPERATOR EXTERNAL)Only the most recent of2 resultswithin the time period is included. Narrative Performed At Ventricular Rate 54 BPM GE MUSE Atrial Rate 54 BPM P-R Interval 170 ms QRS Duration 90 ms Q-T Interval 432 ms QTC Calculation(Bazett) 409 ms P Aurora 61 degrees R Aurora 25 degrees T Aurora 55 degrees Sinus bradycardia Otherwise normal ECG When compared with ECG of 30-SEP-2018 16:50, No significant change was found Confirmed by MD RUBI YOCHAI ([id number]) on 10/01/2018 7:37:19 AM Procedure Note Interface, External Ris In - 10/01/2018 7:37 AM TOOL GRINDER OPERATOR EXTERNAL Ventricular Rate 54 BPM Atrial Rate 54 BPM P-R Interval 170 ms QRS Duration 90 ms Q-T Interval 432 ms QTC Calculation(Bazett) 409 ms P Aurora 61 degrees R Aurora 25 degrees T Aurora 55 degrees Sinus bradycardia Otherwise normal ECG When compared with ECG of 30-SEP-2018 16:50, No significant change was found Confirmed by MD RUBI YOCHAI ([id number]) on 10/01/2018 7:37:19 AM Performing Organization Address City/[facility] Centerconj Phone Number GE MUSE XR chest 1 view portable / bedside (09/30/2018 6:00 PM TOOL GRINDER OPERATOR EXTERNAL) Narrative Performed At FINAL REPORT GE RIS AP view of the chest dated 09/30/2018 COMPARISON: September 17, 2011 CLINICAL INFORMATION: chest pain Comment:Heart is normal in size. Pulmonary vasculature is unremarkable. Lungs are clear. No pulmonary infiltrate or pleural effusion is present. Impression:No active cardiopulmonary disease or interval change. Signed: Prashanth Hunter MD Report Verified Date/Time:09/30/2018 19:55:13 Reading Location: [facility] C013 Consult Reading Room Procedure Note Interface, External Ris In - 09/30/2018 7:57 PM TOOL GRINDER OPERATOR EXTERNAL FINAL REPORT AP view of the chest dated 09/30/2018 COMPARISON: September 17, 2011 CLINICAL INFORMATION: chest pain Comment: Heart is normal in size. Pulmonary vasculature is unremarkable. Lungs are clear. No pulmonary infiltrate or pleural effusion is present. Impression: No active cardiopulmonary disease or interval change. Signed: Prashanth Hunter MD Report Verified Date/Time: 09/30/2018 19:55:13 Reading Location: [facility] [id number] Consult Reading Room Performing Organization Address City/State/Zipcode Phone Number RIS B-type Natriuretic Factor (BNP) (09/30/2018 5:00 PM TOOL GRINDER OPERATOR EXTERNAL) BNP <10 0 - 100 pg/mL [facility] Specimen Blood Performing Organization Address City/[facility] Centercode Phone Number [address] [address] [phone] CENTER Magnesium (09/30/2018 5:00 PM TOOL GRINDER OPERATOR EXTERNAL) Magnesium 2.0 1.6 - 2.6 mg/dL [facility] Specimen Blood Performing Organization Address City/[facility] Centercode Phone Number [address] [address] [place] Hemoglobin A1c (09/30/2018 5:00 PM TOOL GRINDER OPERATOR EXTERNAL) Hemoglobin A1C 8.5 (H) 4.3 - 6.1 % [facility] Specimen Blood Performing Organization Address [facility] Centercode Phone Number [address] [address] [place] Lipid panel (09/30/2018 5:00 PM TOOL GRINDER OPERATOR EXTERNAL) Triglycerides 175 mg/dL [facility] Cholesterol 200 mg/dL [facility] HDL 40 mg/dL [facility] LDL Calculated 125 mg/dL [facility] Specimen Blood Narrative Performed At Triglyceride Reference Range: [facility] Low Risk <150 [id number] High Risk 200-499 Very High Risk>=500 Cholesterol Reference Range: Low Risk <200 [id number] High Risk>240 HDL Cholesterol Reference Range: Low Risk >=60 High Risk <40 LDL Cholesterol Reference Range: Optimal<100 Near [id number] Very High >=190 Performing Organization Address City/State/Zipcode Phone Number [facility] [address] [place] [address] CENTER Comprehensive metabolic panel (09/30/2018 5:00 PM TOOL GRINDER OPERATOR EXTERNAL) Protein, Total 7.2 6.0 - 8.3 gm/dL [facility] Albumin 4.3 3.5 - 5.0 g/dL [facility] Alkaline Phosphatase 108 40 - 150 U/L [facility] Total Bilirubin 1.0 0.2 - 1.2 mg/dL [facility] Sodium 138 136 - 145 meq/L [facility] Potassium 4.2 3.5 - 5.1 meq/L [facility] Chloride 106 98 - 107 meq/L [facility] CO2 24 22 - 29 meq/L [facility] BUN 19 7 - 21 mg/dL [facility] Creatinine 0.88 0.57 - 1.25 mg/dL [facility] Glucose 174 (H) 70 - 105 mg/dL [facility] Calcium 9.8 8.4 - 10.2 mg/dL [facility] AST 23 5 - 34 U/L [facility] ALT 14 6 - 55 U/L [facility] EGFR 89Comment: ESTIMATED GFR mL/min/1.73 sq m [facility] IS NOT ACCURATE [facility] CREATININE CLEARANCE IN PREDICTING GLOMERULAR FILTRATION RATE. ESTIMATED GFR IS NOT APPLICABLE FOR DIALYSIS PATIENTS. Specimen Blood Performing Organization Address City/State/Zipcode Phone Number [facility] [address] [place] [address] CENTER after 11/16/2017 Insurance Payer Benefit Plan / Subscriber ID Type Phone Address Group BLUE CROSS/BLUE BCBS PPO POS EPO xxxxxxxxxxxx PPO [phone] [address] [place] [address] Advance Directives For more information, please contact:[facility] [place] [address] [phone] Code Status Date Activated Date Inactivated Comments Full Code 10/01/2018 5:52 PM This code status was determined by: Patient Full Code 10/01/2018 8:11 AM 10/01/2018 5:52 PM This code status was determined by: Patient
--- OUTSIDE RECORDS SUMMARY | 2018-11-17 07:02 | XMS REPORT ---
:1960 [facility] Address [address] [place] [address] Care Team Providers Name Role Phone BRAD [...] (BEAKER) (test 199 mg/dL 70-[address] [facility] [address] [place] [address] sdvm=[id number]) [facility] [address] BASIC METABOLIC [id number] 04:13:00 Test Item Value Reference Range Comments SODIUM (BEAKER) (test 138 meq/L 136-145 lnxk=913) POTASSIUM (BEAKER) (test 4.2 meq/L 3.5-5.1 aoqh=181) CHLORIDE (BEAKER) (test 105 meq/L 98-107 qerc=018) CO2 (BEAKER) (test 25 meq/L 22-29 vxyu=523) BLOOD UREA NITROGEN 17 mg/dL 7-21 (BEAKER) (test hyrh=778) CREATININE (BEAKER) (test 0.98 mg/dL 0.57-1.25 knlh=566) GLUCOSE RANDOM (BEAKER) 196 mg/dL 70-105 (test khoh=978) CALCIUM (BEAKER) (test 9.3 mg/dL 8.4-10.2 zdlg=305) EGFR (BEAKER) (test 78 mL/min/1.73 sq m ESTIMATED GFR IS NOT vcgm=6283) ACCURATE CREATININE CLEARANCE IN PREDICTING GLOMERULAR FILTRATION RATE. ESTIMATED GFR IS NOT APPLICABLE FOR DIALYSIS PATIENTS. CBC W/PLT COUNT & AUTO [id number] 04:00:00 Test Item Value Reference Range Comments WHITE BLOOD CELL COUNT (BEAKER) (test nzup=991) 8.3 K/ L 3.5-10.5 RED BLOOD CELL COUNT (BEAKER) (test anct=291) 5.01 M/ L 4.63-6.08 HEMOGLOBIN (BEAKER) (test mtvg=649) 15.4 GM/DL 13.7-17.5 HEMATOCRIT (BEAKER) (test fegf=998) 46.3 % 40.1-51.0 MEAN CORPUSCULAR VOLUME (BEAKER) (test vhli=181) 92.4 fL 79.0-92.2 MEAN CORPUSCULAR HEMOGLOBIN (BEAKER) (test 30.7 pg 25.7-32.2 fycz=334) MEAN CORPUSCULAR HEMOGLOBIN CONC (BEAKER) (test 33.3 GM/DL 32.3-36.5 xmtb=132) RED CELL DISTRIBUTION WIDTH (BEAKER) (test 13.0 % 11.6-14.4 dzgk=498) PLATELET COUNT (BEAKER) (test xuva=916) 273 K/CU MM 150-450 MEAN PLATELET VOLUME (BEAKER) (test hxph=720) 9.1 fL 9.4-12.4 NUCLEATED RED BLOOD CELLS (BEAKER) (test 0 /100 WBC 0-0 xnyz=064) NEUTROPHILS RELATIVE PERCENT (BEAKER) (test 50 % zxib=994) LYMPHOCYTES RELATIVE PERCENT (BEAKER) (test 35 % tbpb=780) MONOCYTES RELATIVE PERCENT (BEAKER) (test 11 % mweq=249) EOSINOPHILS RELATIVE PERCENT (BEAKER) (test 2 % oboq=785) BASOPHILS RELATIVE PERCENT (BEAKER) (test 1 % msdh=862) NEUTROPHILS ABSOLUTE COUNT (BEAKER) (test 4.12 K/ L 1.78-5.38 pael=968) LYMPHOCYTES ABSOLUTE COUNT (BEAKER) (test 2.86 K/ L 1.32-3.57 nqzn=863) MONOCYTES ABSOLUTE COUNT (BEAKER) (test 0.94 K/ L 0.30-0.82 ufvp=721) EOSINOPHILS ABSOLUTE COUNT (BEAKER) (test 0.18 K/ L 0.04-0.54 rjyv=418) BASOPHILS ABSOLUTE COUNT (BEAKER) (test 0.05 K/ L 0.01-0.08 duxb=655) IMMATURE GRANULOCYTES-RELATIVE PERCENT (BEAKER) 1 % 0-1 (test ifeo=5176) POCT-GLUCOSE [id number] 21:42:00 Test Item Value Reference Range Comments POC-GLUCOSE METER (BEAKER) 218 mg/dL 70-110 TESTED AT [address] (test pwku=5775) [place] [id number] CBC (HEMOGRAM ONLY)2018-10-01 19:29:00 Test Item Value Reference Range Comments WHITE BLOOD CELL COUNT (BEAKER) (test vtpc=347) 7.5 K/ L 3.5-10.5 RED BLOOD CELL COUNT (BEAKER) (test tbpz=520) 5.30 M/ L 4.63-6.08 HEMOGLOBIN (BEAKER) (test wrhu=472) 16.4 GM/DL 13.7-17.5 HEMATOCRIT (BEAKER) (test xlkj=043) 48.0 % 40.1-51.0 MEAN CORPUSCULAR VOLUME (BEAKER) (test qpnh=554) 90.6 fL 79.0-92.2 MEAN CORPUSCULAR HEMOGLOBIN (BEAKER) (test 30.9 pg 25.7-32.2 wuea=556) MEAN CORPUSCULAR HEMOGLOBIN CONC (BEAKER) (test 34.2 GM/DL 32.3-36.5 gtlb=313) RED CELL DISTRIBUTION WIDTH (BEAKER) (test 13.0 % 11.6-14.4 bcua=290) PLATELET COUNT (BEAKER) (test jkgh=885) 323 K/CU MM 150-450 MEAN PLATELET VOLUME (BEAKER) (test bspe=717) 9.2 fL 9.4-12.4 NUCLEATED RED BLOOD CELLS (BEAKER) (test 0 /100 WBC 0-0 jxky=434) POCT-GLUCOSE [id number] 17:50:00 Test Item Value Reference Range Comments POC-GLUCOSE METER (BEAKER) 139 mg/dL 70-110 TESTED AT [address] (test jscf=7139) [place] [address] [id number] 16:49:00 Test Item Value Reference Range Comments ACTIVATED CLOTTING TIME 114 sec TESTED AT [address] (BEAKER) (test newf=169) [place] [address] POCT-GLUCOSE [id number] 12:01:00 Test Item Value Reference Range Comments POC-GLUCOSE METER (BEAKER) 235 mg/dL 70-[address] [facility] [address] [place] [address] (test fitl=1148) [place] [id number] HEMOGLOBIN [id number] 09:12:00 Test Item Value Reference Range Comments HEMOGLOBIN A1C (BEAKER) (test xslq=777) 8.5 % 4.3-6.1 POCT-GLUCOSE [id number] 08:19:00 Test Item Value Reference Range Comments POC-GLUCOSE METER (BEAKER) 284 mg/dL 70-110 TESTED AT [address] (test ukxn=8276) [place] [address] TROPONIN [id number] 06:57:00 Test Item Value Reference Range Comments TROPONIN I (BEAKER) (test aehl=613) 1.35 ng/mL 0.00-0.03 Troponin I (TnI) levels [...] failure, acidosis, acute neurological disease, and persistent tachyarrhythmia.[id number] 06:43:00 Test Item Value Reference Range Comments PARTIAL THROMBOPLASTIN TIME (BEAKER) (test 57.7 seconds 22.5-36.0 yejt=261) TROPONIN [id number] 01:21:00 Test Item Value Reference Range Comments TROPONIN I (BEAKER) (test rbpp=709) 1.68 ng/mL 0.00-0.03 Troponin I (TnI) levels [...] failure, acidosis, acute neurological disease, and persistent tachyarrhythmia.[id number] 00:50:00 Test Item Value Reference Range Comments PARTIAL THROMBOPLASTIN TIME (BEAKER) (test 42.4 seconds 22.5-36.0 wvpq=583) POCT-GLUCOSE [id number] 21:47:00 Test Item Value Reference Range Comments POC-GLUCOSE METER (BEAKER) 277 mg/dL 70-[address] [facility] [address] (test sheu=4289) [facility] [address] RAD, CHEST, 1 VIEW, NON [id number] 19:55:00Reason for exam:->chest painShould this be performed [...] Hunter Verified Date/Time: 09/30/2018 19:55:13 Reading Location: [address] Consult Reading Room B-TYPE NATRIURETIC FACTOR (BNP)2018-09-30 18:03:00 Test Item Value Reference Range Comments B-TYPE NATRIURETIC PEPTIDE (BEAKER) (test kshn=764) < pg/mL 0-100 TROPONIN [id number] 18:00:00 Test Item Value Reference Range Comments TROPONIN I (BEAKER) (test oosl=658) 0.98 ng/mL 0.00-0.03 Troponin I (TnI) levels [...] failure, acidosis, acute neurological disease, and persistent tachyarrhythmia.[id number] 17:46:00 Test Item Value Reference Range Comments MAGNESIUM (BEAKER) (test oqfw=657) 2.0 mg/dL 1.6-2.6 COMPREHENSIVE METABOLIC [id number] 17:46:00 Test Item Value Reference Range Comments TOTAL PROTEIN (BEAKER) 7.2 gm/dL 6.0-8.3 (test bbme=150) ALBUMIN (BEAKER) (test 4.3 g/dL 3.5-5.0 kxqs=6843) ALKALINE PHOSPHATASE 108 U/L 40-150 (BEAKER) (test gajd=523) BILIRUBIN TOTAL (BEAKER) 1.0 mg/dL 0.2-1.2 (test blpd=279) SODIUM (BEAKER) (test 138 meq/L 136-145 qbcg=118) POTASSIUM (BEAKER) (test 4.2 meq/L 3.5-5.1 lldk=498) CHLORIDE (BEAKER) (test 106 meq/L 98-107 odzq=067) CO2 (BEAKER) (test 24 meq/L 22-29 bprm=603) BLOOD UREA NITROGEN 19 mg/dL 7-21 (BEAKER) (test ziyr=499) CREATININE (BEAKER) (test 0.88 mg/dL 0.57-1.25 ssky=206) GLUCOSE RANDOM (BEAKER) 174 mg/dL 70-105 (test apwz=726) CALCIUM (BEAKER) (test 9.8 mg/dL 8.4-10.2 gqta=849) AST (SGOT) (BEAKER) (test 23 U/L 5-34 wrft=612) ALT (SGPT) (BEAKER) (test 14 U/L 6-55 lute=792) EGFR (BEAKER) (test 89 mL/min/1.73 sq m ESTIMATED GFR IS NOT okzi=9520) ACCURATE CREATININE CLEARANCE IN PREDICTING GLOMERULAR FILTRATION RATE. ESTIMATED GFR IS NOT APPLICABLE FOR DIALYSIS PATIENTS. LIPID [id number] 17:46:00 Test Item Value Reference Range Comments TRIGLYCERIDES (BEAKER) (test evju=098) 175 mg/dL CHOLESTEROL (BEAKER) (test grsi=618) 200 mg/dL HDL CHOLESTEROL (BEAKER) (test svdn=180) 40 mg/dL LDL CHOLESTEROL CALCULATED (BEAKER) (test 125 mg/dL mxyb=071) Triglyceride Reference Range: Low Risk <150 Borderline 150- 199 High Risk 200-499 Very High Risk >=500Cholesterol Reference Range: Low Risk <200 Borderline 200-239 High Risk > 240HDL Cholesterol Reference Range: Low Risk >=60 High Risk <40LDL Cholesterol Reference Range: Optimal <100 Near Optimal 100-129 Borderline 130-159 High 160-189 Very High [id number] 17:34:00 Test Item Value Reference Range Comments PARTIAL THROMBOPLASTIN TIME (BEAKER) (test 46.0 seconds 22.5-36.0 gzik=457) CBC W/PLT COUNT & AUTO [id number] 17:28:00 Test Item Value Reference Range Comments WHITE BLOOD CELL COUNT (BEAKER) (test qxhr=702) 10.2 K/ L 3.5-10.5 RED BLOOD CELL COUNT (BEAKER) (test bacc=623) 5.01 M/ L 4.63-6.08 HEMOGLOBIN (BEAKER) (test aito=985) 15.4 GM/DL 13.7-17.5 HEMATOCRIT (BEAKER) (test pvup=388) 45.2 % 40.1-51.0 MEAN CORPUSCULAR VOLUME (BEAKER) (test gcyn=026) 90.2 fL 79.0-92.2 MEAN CORPUSCULAR HEMOGLOBIN (BEAKER) (test 30.7 pg 25.7-32.2 zvce=938) MEAN CORPUSCULAR HEMOGLOBIN CONC (BEAKER) (test 34.1 GM/DL 32.3-36.5 pyee=687) RED CELL DISTRIBUTION WIDTH (BEAKER) (test 12.7 % 11.6-14.4 qkku=224) PLATELET COUNT (BEAKER) (test jxnt=139) 288 K/CU MM 150-450 MEAN PLATELET VOLUME (BEAKER) (test rrin=658) 9.1 fL 9.4-12.4 NUCLEATED RED BLOOD CELLS (BEAKER) (test 0 /100 WBC 0-0 pxtb=841) NEUTROPHILS RELATIVE PERCENT (BEAKER) (test 50 % veno=467) LYMPHOCYTES RELATIVE PERCENT (BEAKER) (test 38 % nxxt=988) MONOCYTES RELATIVE PERCENT (BEAKER) (test 9 % wulk=872) EOSINOPHILS RELATIVE PERCENT (BEAKER) (test 1 % roiv=493) BASOPHILS RELATIVE PERCENT (BEAKER) (test 1 % plfo=826) NEUTROPHILS ABSOLUTE COUNT (BEAKER) (test 5.06 K/ L 1.78-5.38 ehjy=987) LYMPHOCYTES ABSOLUTE COUNT (BEAKER) (test 3.89 K/ L 1.32-3.57 lszm=535) MONOCYTES ABSOLUTE COUNT (BEAKER) (test 0.87 K/ L 0.30-0.82 nxxj=788) EOSINOPHILS ABSOLUTE COUNT (BEAKER) (test 0.12 K/ L 0.04-0.54 rikp=854) BASOPHILS ABSOLUTE COUNT (BEAKER) (test 0.07 K/ L 0.01-0.08 eyte=066) IMMATURE GRANULOCYTES-RELATIVE PERCENT (BEAKER) 2 % 0-1 (test quot=3727) POCT-GLUCOSE [id number] 17:20:00 Test Item Value Reference Range Comments POC-GLUCOSE METER (BEAKER) 212 mg/dL 70-[address] [facility] [address] [facility] (test nefe=9703) [facility] [address]
[2018-11-17] MEDS ORDERED: KETOROLAC 30 MG/ML INJ ONE (07:43)
[2018-11-17] MEDS ORDERED: HYDROCODONE/APAP 7.5/325 MG TAB ONE (07:43)
[2018-11-17] MEDS ORDERED: DIAZEPAM 10 MG/2 ML INJ SYRINGE ONE (07:49)
--- NOTE | 2018-11-17 08:33 | EDPHYS ---
Physician Documentation [facility] Name: Kevin Castellon Age: 58 yrs Sex: Male : 1960 Arrival Date: 11/17/2018 Time: 06:59 Bed 17 Private MD: ED Physician Luis Fernando Whiteside HPI: 11/17 07:18 This 58 yrs old Male presents to ER via Ambulatory with complaints of Neck cp Pain, >24Hrs Old, Shoulder Pain. 07:18 The patient or guardian complains of decreased range of motion, pain, that is acute, cp tenderness. The symptoms are located on the left lateral neck. Onset: The symptoms/episode began/occurred 1 week(s) ago. Context: The neck injury/problem resulted from from unknown cause. Associated signs and symptoms: Pertinent positives: Paresthesias left upper back pain and left shoulder pain, Pertinent negatives: fever, headache. The pain does not radiate. Modifying factors: the symptoms are aggravated by movement, pressure. Severity of symptoms: in the emergency department the symptoms are actually worse, moderately. Historical: - Allergies: 07:16 Sulfa (Sulfonamide Antibiotics); ss - PMHx: 07:16 Diabetes - NIDDM; Hypertension; High Cholesterol; ss - PSHx: 07:16 Appendectomy; Hernia repair; ss - Immunization history:: Adult Immunizations up to date. - Social history:: Smoking status: Patient/guardian denies using tobacco. - Ebola Screening: : Patient denies exposure to infectious person Patient denies travel to an Ebola-affected area in the 21 days before illness onset. ROS: 07:21 Constitutional: Negative for body aches, chills, fever, poor PO intake. cp 07:21 Neck: Positive for pain with movement, pain at rest, stiffness, tenderness, Negative for bony tenderness. 07:21 Cardiovascular: Negative for chest pain, edema, palpitations. 07:21 Respiratory: Negative for cough, shortness of breath, wheezing. 07:21 Back: Positive for decreased range of motion, pain at rest, pain with movement, of the left trapezius. 07:21 Skin: Negative for cellulitis, rash. 07:21 Neuro: Positive for tingling, of the left lateral neck, Negative for altered mental status, headache, weakness. 07:21 All other systems are negative. Exam: 07:30 Constitutional: The patient appears in no acute distress, alert, awake, cp non-diaphoretic, non-toxic, well developed, well nourished, uncomfortable. 07:30 Head/Face: Normocephalic, atraumatic. cp 07:30 Eyes: Periorbital structures: appear normal, Conjunctiva: normal, no exudate, no injection, Sclera: no appreciated abnormality, Lids and lashes: appear normal, bilaterally. 07:30 ENT: External ear(s): are unremarkable, Nose: is normal, Mouth: Lips: moist, Oral mucosa: moist, Posterior pharynx: Airway: no evidence of obstruction, patent. 07:30 Neck: C-spine: vertebral tenderness, is not appreciated, crepitus, is not appreciated, ROM/movement: pain, that is moderate, with rotation to the left, limited range of motion, that is severe, when rotating to the left, nuchal rigidity, is not appreciated. 07:30 Chest/axilla: Inspection: normal, Palpation: is normal, no crepitus, no tenderness. 07:30 Cardiovascular: Rate: normal, Rhythm: regular, Pulses: Pulses are 2+ in left radial artery. Edema: is not appreciated, JVD: is not appreciated. 07:30 Respiratory: the patient does not display signs of respiratory distress, Respirations: normal, no use of accessory muscles, no retractions, no splinting, no tachypnea, labored breathing, is not present, Breath sounds: are clear throughout, no decreased breath sounds, no stridor, no wheezing. 07:30 Abdomen/GI: Inspection: abdomen appears normal, Palpation: abdomen is soft and non-tender, in all quadrants. 07:30 Back: pain, that is moderate, of the left lateral neck and left trapezius, ROM is painful, with rotation to the left. 07:30 Skin: cellulitis, is not appreciated, no rash present. 07:30 Neuro: Sensation: tingling, that is mild, of the left lateral neck. 08:42 ECG was reviewed by the Attending Physician. cp Vital Signs: 07:16 BP 127 / 87; Pulse 61; Resp 15; Temp 97.8(O); Pulse Ox 97% on R/A; Weight 99.79 kg; ss Height 5 ft. 10 in. (177.80 cm); Pain 8/10; 08:55 BP 125 / 81; Pulse 64; Resp 17; Pulse Ox 99% on R/A; tw2 07:16 Body Mass Index 31.57 (99.79 kg, 177.80 cm) ss MDM: 07:10 Patient medically screened. cp 07:30 Differential diagnosis: Cervical Disc Herniation cervical strain, Spondylolisthesis cp Spondylosis Thoracic Outlet Syndrome torticollis, Whiplash Injury angina. 08:31 Data reviewed: vital signs, nurses notes, and as a result, I will discharge patient. cp Response to treatment: the patient's symptoms have mildly improved after treatment, and as a result, I will discharge patient. EC:42 Rate is 54 beats/min. Rhythm is regular. MA interval is normal. QRS interval is normal. cp QT interval is normal. Interpreted by me. Reviewed by me. Administered Medications: 07:50 Drug: TORadol 60 mg Route: IM; Site: right gluteus; rb1 08:57 Follow up: Response: No adverse reaction; Pain is decreased tw2 07:50 Drug: Diazepam 5 mg Route: IM; Site: right deltoid; rb1 08:56 Follow up: Response: No adverse reaction tw2 07:50 Drug: Hydrocodone-Acetaminophen (7.5 mg-325 mg) 1 tabs Route: PO; rb1 08:56 Follow up: Response: No adverse reaction; Pain is decreased tw2 Disposition: 09:00 Chart complete. cp Disposition: 11/17/18 08:32 Discharged to Home. Impression: Strain of muscle, fascia and tendon at neck level. - Condition is Stable. - Discharge Instructions: Muscle Strain, Neck Exercises. - Prescriptions for Tylenol- Codeine #3 300-30 mg Oral Tablet - take 2 tablets by ORAL route every 6 hours As needed no driving while taking medication; 15 tablet. Baclofen 10 mg Oral Tablet - take 1 tablet by ORAL route 3 times per day no driving while taking medication; 20 tablet. Diclofenac Sodium 75 mg Oral Tablet, Delayed Release (E.C.) - take 1 tablet by ORAL route 2 times per day; 20 tablet. - Medication Reconciliation Form, Thank You Letter, Antibiotic Education, Prescription Opioid Use, Work release form form. - Follow up: Private Physician; When: 2 - 3 days; Reason: Recheck today's complaints. - Problem is new. - Symptoms have improved. Addendum: 11/18/2018 10:09 Co-signature as Attending Physician, Luis Fernando Whiteside MD I agree with the assessment and c orr plan of care. Signatures: Luis Fernando Whiteside MD MD cha Smirch, Shelby RN RN Luis Fernando Mo PA PA cp Barber, Rebecca, RN RN rb1 Catrachita Smiley RN RN tw2 Corrections: (The following items were deleted from the chart) 11/17 08:56 08:32 11/17/2018 08:32 Discharged to Home. Impression: Strain of muscle, fascia and tw2 tendon at neck level. Condition is Stable. Forms are Medication Reconciliation Form, Thank You Letter, Antibiotic Education, Prescription Opioid Use. Follow up: Private Physician; When: 2 - 3 days; Reason: Recheck today's complaints. Problem is new. Symptoms have improved. cp
--- NOTE | 2018-11-17 08:33 | ER ---
Nurse's Notes [facility] Name: Kevin Castellon Age: 58 yrs Sex: Male : 1960 Arrival Date: 11/17/2018 Time: 06:59 Bed 17 Private MD: Diagnosis: Strain of muscle, fascia and tendon at neck level Presentation: 11/17 07:13 Presenting complaint: Patient states: L sided neck pain and shoulder pain that began 1 ss week ago. Is worse with range of motion. Denies injury. Transition of care: patient was not received from another setting of care. Acute neurological deficit: none identified. Onset of symptoms was November 10, 2018. Risk Assessment: Do you want to hurt yourself or someone else? Patient reports no desire to harm self or others. Initial Sepsis Screen: Does the patient meet any 2 criteria? No. Patient's initial sepsis screen is negative. Does the patient have a suspected source of infection? No. Patient's initial sepsis screen is negative. Care prior to arrival: None. 07:13 Method Of Arrival: Ambulatory ss 07:13 Acuity: HUGH 4 ss Triage Assessment: 08:27 General: Appears in no apparent distress. Behavior is calm, cooperative, appropriate tw2 for age. Historical: - Allergies: 07:16 Sulfa (Sulfonamide Antibiotics); ss - PMHx: 07:16 Diabetes - NIDDM; Hypertension; High Cholesterol; ss - PSHx: 07:16 Appendectomy; Hernia repair; ss - Immunization history:: Adult Immunizations up to date. - Social history:: Smoking status: Patient/guardian denies using tobacco. - Ebola Screening: : Patient denies exposure to infectious person Patient denies travel to an Ebola-affected area in the 21 days before illness onset. Screenin:27 Abuse screen: Denies threats or abuse. Nutritional screening: No deficits noted. tw2 Tuberculosis screening: No symptoms or risk factors identified. Fall Risk None identified. Assessment: 07:10 General: Appears uncomfortable, Behavior is calm, cooperative. Pain: Complains of pain rb1 in left trapezius Pain currently is 8 out of 10 on a pain scale. Pain began x 1 week. Neuro: Level of Consciousness is awake, alert, obeys commands, Oriented to person, place, time, situation. Cardiovascular: Capillary refill < 3 seconds is brisk in bilateral fingers. Respiratory: Airway is patent Respiratory effort is even, unlabored, Respiratory pattern is regular, symmetrical. GI: No signs and/or symptoms were reported involving the gastrointestinal system. : No signs and/or symptoms were reported regarding the genitourinary system. Derm: Skin is pink, warm \T\ dry. Musculoskeletal: Range of motion: intact in all extremities. 07:10 Neuro: Reports Tingling in the neck, jaw, and arm. Cardiovascular: Denies chest pain, rb1 shortness of breath. 08:27 Pain: Complains of pain in left trapezius. Neuro: Level of Consciousness is awake, tw2 alert, obeys commands, Oriented to person, place, time, situation. Cardiovascular: Denies chest pain, shortness of breath, Patient's skin is warm and dry. Respiratory: Airway is patent Respiratory effort is even, unlabored, Respiratory pattern is regular, symmetrical. GI: No signs and/or symptoms were reported involving the gastrointestinal system. : No signs and/or symptoms were reported regarding the genitourinary system. EENT: No signs and/or symptoms were reported regarding the EENT system. Derm: No signs and/or symptoms reported regarding the dermatologic system. Musculoskeletal: Range of motion: intact in all extremities. 08:56 Reassessment: Patient appears in no apparent distress at this time. Patient and/or tw2 family updated on plan of care and expected duration. Pain level reassessed. Patient is alert, oriented x 3, equal unlabored respirations, skin warm/dry/pink. Vital Signs: 07:16 BP 127 / 87; Pulse 61; Resp 15; Temp 97.8(O); Pulse Ox 97% on R/A; Weight 99.79 kg; Height 5 ft. 10 in. (177.80 cm); Pain 8/10; 08:55 BP 125 / 81; Pulse 64; Resp 17; Pulse Ox 99% on R/A; tw2 07:16 Body Mass Index 31.57 (99.79 kg, 177.80 cm) ED Course: 06:59 Patient arrived in ED. ds1 07:10 Luis Fernando Mo PA is PHCP. cp 07:10 Bo Villa MD is Attending Physician. cp 07:15 Triage completed. ss 07:16 Arm band placed on right wrist. ss 07:27 Mariela Lawrence, RN is Primary Nurse. rb1 07:45 Luis Fernando Whiteside MD is Attending Physician. cp 08:26 Primary Nurse role handed off by Mariela Lawrence, LINDA tw2 08:26 Catrachita Smiley, LINDA is Primary Nurse. tw2 08:27 Bed in low position. Call light in reach. potline monitor on. Pulse ox on. NIBP on. tw2 08:55 No provider procedures requiring assistance completed. Patient did not have IV access tw2 during this emergency room visit. Administered Medications: 07:50 Drug: TORadol 60 mg Route: IM; Site: right gluteus; rb1 08:57 Follow up: Response: No adverse reaction; Pain is decreased tw2 07:50 Drug: Diazepam 5 mg Route: IM; Site: right deltoid; rb1 08:56 Follow up: Response: No adverse reaction tw2 07:50 Drug: Hydrocodone-Acetaminophen (7.5 mg-325 mg) 1 tabs Route: PO; rb1 08:56 Follow up: Response: No adverse reaction; Pain is decreased tw2 Outcome: 08:32 Discharge ordered by MD. cp 08:55 Discharged to home ambulatory, with significant other. tw2 08:55 Condition: stable 08:55 Discharge instructions given to patient, significant other, Instructed on discharge instructions, follow up and referral plans. no drinking with medication, no driving heavy equipment, medication usage, Demonstrated understanding of instructions, follow-up care, medications, Prescriptions given X 3. 08:56 Patient left the ED. tw2 Signatures: Jeanette Charles ds1 Lisbeth Gill RN RN ss Page, Corey, PA PA cp Mariela Lawrence, RN RN rb1 Catrachita Smiley RN RN tw2
[2018-11-17 09:43] VITALS: TEMP 97.8
[2018-11-17 09:44] VITALS: BP 125/81; O2SAT 99
--- NOTE | 2018-11-17 20:18 | EKG ---
Test Date: 2018-11-17 Test Time: 08:35:48 Development Trainer: JUSTICE MEASUREMENT RESULTS: Intervals: Rate: 54 UT: 176 QRSD: 96 QT: 438 QTc: 415 [place]: P: 64 UT: 176 QRS: 24 T: 42 INTERPRETIVE STATEMENTS: Sinus bradycardia Otherwise normal ECG Compared to ECG 09/30/2018 12:26:42 Sinus rhythm no longer present Electronically Signed On 11-17-18 20:17:46 CDT by Alex Amaya
== END 2018-11-17 08:56 | disposition home or self-care (01) ==
LOC: ER 06:58
DX: S16.1XXA Strain of muscle, fascia and tendon at neck level, initial encounter (principal); X58.XXXA Exposure to other specified factors, initial encounter; Z88.2 Allergy status to sulfonamides
CPT/HCPCS: 93005; 96372; 99284; J3360

== ENCOUNTER 2021-06-29 18:21 | Emergency (ER) | payer BC ==
[2021-06-29] MEDS ORDERED: NA CHLORIDE 0.9% 1,000 ML ONE (18:49)
[2021-06-29] MEDS ORDERED: ONDANSETRON 4 MG/2 ML VIAL ONE (19:12)
[2021-06-29 19:22] LABS: Absolute Lymphocytes (CBC) 2.4 K/uL (0.7-4.9); Basophils % 0.4 % (0-1.3); Hematocrit 47.2 % (39.6-49.0); Lymphocytes % 25.3 % (15.3-44.8); MPV 7.3 fL (7.6-11.3); RBC Red Blood Cell Count 5.27 M/uL (4.33-5.43)
[2021-06-29 20:08] LABS: Albumin 4.1 g/dL (3.4-5.0); Bilirubin Direct 0.3 mg/dL (0-0.2); Bilirubin Total 1.3 mg/dL (0.2-1.0); Potassium 3.8 mmol/L (3.5-5.1); Protein, Total 7.7 g/dL (6.4-8.2)
--- NOTE | 2021-06-29 20:23 | EDPHYS ---
Physician Documentation [facility] Name: Kevin Castellon Age: 60 yrs Sex: Male : 1960 Arrival Date: 06/29/2021 Time: 18:26 Bed 23 Private MD: London Aguiar R ED Physician Doug Anguiano HPI: 06/29 20:16 This 60 yrs old Male presents to ER via Ambulatory with complaints of kb Diarrhea, Vomiting, Sinus Congestion. 20:16 The patient presents to the emergency department with nausea, vomiting, diarrhea. kb Onset: The symptoms/episode began/occurred 3 day(s) ago. Possible causes: unknown. The symptoms are aggravated by nothing. The symptoms are alleviated by nothing. Associated signs and symptoms: Pertinent positives: diarrhea, nausea, vomiting, Pertinent negatives: abdominal pain, anorexia, belching, constipation, dysuria, fever, flatulence, GI bleeding, hematuria. Severity of symptoms: At their worst the symptoms were moderate in the emergency department the symptoms are unchanged. The patient has not experienced similar symptoms in the past. The patient has not recently seen a physician. Pt reports n/v/d since Sunday. States he hasn't been vomiting today, but still having diarrhea. Denies abd pain or fever. States he does have cramps after eating. Historical: - Allergies: 18:43 Sulfa (Sulfonamide Antibiotics); ll1 18:43 Amiodarone; ll1 - PMHx: 18:43 Diabetes - NIDDM; High Cholesterol; Hypertension; Myocardial infarction; ll1 - PSHx: 18:43 quad. bypass; B shoulder SX; Appendectomy; hernia repair x 2; ll1 - Immunization history:: Client reports having NOT received the Covid vaccine. - Social history:: Smoking status: Patient denies any tobacco usage or history of. ROS: 20:15 Constitutional: Negative for fever, chills, and weight loss. kb 20:15 Abdomen/GI: Positive for nausea, vomiting, and diarrhea, abdominal cramps, Negative for abdominal pain. 20:15 All other systems are negative. Exam: 20:15 Constitutional: This is a well developed, well nourished patient who is awake, alert, kb and in no acute distress. Head/Face: Normocephalic, atraumatic. ENT: Moist Mucous membranes Cardiovascular: Regular rate and rhythm with a normal S1 and S2. No gallops, murmurs, or rubs. No pulse deficits. Respiratory: Respirations even and unlabored. No increased work of breathing, no retractions or nasal flaring. Abdomen/GI: Soft, non-tender. No distention Skin: Warm, dry with normal turgor. Normal color. MS/ Extremity: Pulses equal, no cyanosis. Neurovascular intact. Full, normal range of motion. Neuro: Awake and alert, GCS 15, oriented to person, place, time, and situation. Moves all extremities. Normal gait. Psych: Awake, alert, with orientation to person, place and time. Behavior, mood, and affect are within normal limits. Vital Signs: 18:44 BP 144 / 90; Pulse 83; Resp 18; Temp 98.2; Pulse Ox 97% on R/A; Weight 90.72 kg; Height ll1 5 ft. 10 in. (177.80 cm); 20:49 BP 136 / 88; Pulse 79; Resp 18; Pulse Ox 97% on R/A; lh3 18:44 Body Mass Index 28.70 (90.72 kg, 177.80 cm) ll1 MDM: 18:39 Patient medically screened. kb 20:15 Data reviewed: vital signs, nurses notes. Data interpreted: Pulse oximetry: on room air kb is 97 %. Interpretation: normal. Counseling: I had a detailed discussion with the patient and/or guardian regarding: the historical points, exam findings, and any diagnostic results supporting the discharge/admit diagnosis, lab results, the need for outpatient follow up, a family practitioner, to return to the emergency department if symptoms worsen or persist or if there are any questions or concerns that arise at home. 06/29 18:46 Order name: Basic Metabolic Panel; Complete Time: 20:08 kb 06/29 18:46 Order name: CBC with Diff; Complete Time: 19:27 kb 06/29 18:46 Order name: Hepatic Function; Complete Time: 20:08 kb 06/29 18:46 Order name: Lipase; Complete Time: 20:08 kb 06/29 18:46 Order name: Stool Culture 06/29 18:46 Order name: C.difficile 06/29 18:46 Order name: IV Saline Lock; Complete Time: 19:08 kb 06/29 18:46 Order name: Labs collected and sent; Complete Time: 19:08 kb Administered Medications: 19:01 Drug: NS 0.9% 1000 ml Route: IV; Rate: 1000 ml; Site: right antecubital; 5 19:16 Drug: Zofran (Ondansetron) 4 mg Route: IVP; Site: right antecubital; 3 20:49 Follow up: Response: No adverse reaction; Nausea is decreased 3 Disposition: 06/30 07:04 Co-signature as Attending Physician, Doug Anguiano MD I agree with the assessment and rn plan of care. Attestation: The patient's history, exam findings, diagnostics, and a summary of any interventions or procedures was reviewed in detail with Lizeth SIDHU. Disposition Summary: 06/29/21 20:22 Discharge Ordered Location: Home kb Condition: Stable kb Diagnosis - Nausea with vomiting, unspecified kb - Diarrhea, unspecified kb Followup: kb - With: Emergency Department - When: As needed - Reason: Worsening of condition Followup: kb - With: Private Physician - When: 2 - 3 days - Reason: Recheck today's complaints, Continuance of care, Re-evaluation by your physician Discharge Instructions: - Discharge Summary Sheet kb - Food Choices to Help Relieve Diarrhea, Adult kb - Viral Gastroenteritis, Adult, [id number] kb Forms: - Work release form kb - Medication Reconciliation Form kb - Thank You Letter kb - Antibiotic Education kb - Prescription Opioid Use kb Prescriptions: - Zofran 4 mg Oral Tablet - take 1 tablet by ORAL route every 6 hours As needed; 20 tablet; Refills: 0, kb Product Selection Permitted - dicyclomine 20 mg Oral Tablet - take 1 tablet by ORAL route 4 times per day As needed; 20 tablet; Refills: 0, kb Product Selection Permitted Signatures: Dispatcher [employer] Lizeth Goodson FNP-C FNP-Doug Sutton MD MD rn Lewis, Lynsay RN RN 1 Cyndi Crowell RN RN 3 Parisa Yadav RN RN jh5
--- NOTE | 2021-06-29 20:23 | ER ---
Nurse's Notes [facility] Name: Kevin Castellon Age: 60 yrs Sex: Male : 1960 Arrival Date: 06/29/2021 Time: 18:26 Bed 23 Private MD: London Aguiar R Diagnosis: Nausea with vomiting, unspecified;Diarrhea, unspecified Presentation: 06/29 18:44 Chief complaint: Patient states: N/V/D since Sunday. + sinus congestion. Sent in for [address] Aguiar. No fever. Coronavirus screen: Vaccine status: Patient reports being unvaccinated. Client denies travel out of the [place] in the last 14 days. congestion, diarrhea, nausea, vomiting. Client presents with at least one sign or symptom that may indicate coronavirus-19. Standard/surgical mask placed on the client. Ebola Screen: Patient denies travel to an Ebola-affected area in the 21 days before illness onset. Initial Sepsis Screen: Does the patient meet any 2 criteria? No. Patient's initial sepsis screen is negative. Does the patient have a suspected source of infection? Yes: Acute abdominal pain. Risk Assessment: Do you want to hurt yourself or someone else? Patient reports no desire to harm self or others. Onset of symptoms was June 27, 2021. 18:44 Method Of Arrival: Ambulatory [facility] 18:44 Acuity: HUGH 3 1 Triage Assessment: 19:02 General: Appears uncomfortable, Behavior is calm, cooperative. Pain: Denies pain. GI: 5 Reports diarrhea, vomiting. Historical: - Allergies: 18:43 Sulfa (Sulfonamide Antibiotics); ll1 18:43 Amiodarone; 1 - PMHx: 18:43 Diabetes - NIDDM; High Cholesterol; Hypertension; Myocardial infarction; 1 - PSHx: 18:43 quad. bypass; B shoulder SX; Appendectomy; hernia repair x 2; ll1 - Immunization history:: Client reports having NOT received the Covid vaccine. - Social history:: Smoking status: Patient denies any tobacco usage or history of. Screenin:02 Abuse screen: Denies threats or abuse. Denies injuries from another. Nutritional 5 screening: No deficits noted. Tuberculosis screening: No symptoms or risk factors identified. Fall Risk None identified. IV access (20 points). Vital Signs: 18:44 BP 144 / 90; Pulse 83; Resp 18; Temp 98.2; Pulse Ox 97% on R/A; Weight 90.72 kg; Height ll1 5 ft. 10 in. (177.80 cm); 20:49 BP 136 / 88; Pulse 79; Resp 18; Pulse Ox 97% on R/A; lh3 18:44 Body Mass Index 28.70 (90.72 kg, 177.80 cm) 1 ED Course: 18:26 Patient arrived in ED. am2 18:27 London Aguiar MD is Private Physician. am2 18:39 Lizeth Dobson FNP-C is [facility]. kb 18:39 Doug Anguiano MD is Attending Physician. kb 18:42 Arm band placed on Patient placed in an exam room, on a stretcher. 1 18:45 Triage completed. 1 19:01 Basic Metabolic Panel Sent. 5 19:01 CBC with Diff Sent. 5 19:01 Hepatic Function Sent. 5 19:01 Lipase Sent. 5 19:01 Inserted saline lock: 18 gauge in right antecubital area, using aseptic technique. 5 19:03 Patient has correct armband on for positive identification. Bed in low position. Call [facility] light in reach. Side rails up X 1. 20:50 No provider procedures requiring assistance completed. IV discontinued, intact, lh3 bleeding controlled, No redness/swelling at site. Pressure dressing applied. Administered Medications: 19:01 Drug: NS 0.9% 1000 ml Route: IV; Rate: 1000 ml; Site: right antecubital; [facility] 19:16 Drug: Zofran (Ondansetron) 4 mg Route: IVP; Site: right antecubital; 3 20:49 Follow up: Response: No adverse reaction; Nausea is decreased 3 Outcome: 20:22 Discharge ordered by . kb 20:50 Discharged to home ambulatory, with family. 3 20:50 Condition: good 20:50 Discharge instructions given to patient, family, Instructed on discharge instructions, medication usage, Demonstrated understanding of instructions, medications, Prescriptions given X 2. 20:50 Patient left the ED. 3 Signatures: Lizeth Dobson FNP-C CONDEMNATION ENGINEER-Silvia Avery am2 Matthieu Rossi RN RN 1 Cyndi Crowell, RN RN lh3 Parisa Yadav, RN RN jh5
[2021-06-29 20:54] VITALS: TEMP 98.2; O2SAT 97
[2021-06-29 20:55] VITALS: BP 136/88
[2021-07-02 12:03] LABS: C.diff Antigen/Toxin Ag neg : Tox neg (NEG : NEG)
--- OUTSIDE RECORDS SUMMARY | 2021-07-09 10:09 | XMS REPORT | Continuity of Care Document ---
:1960 Author Organization [facility] t Address [address] [place] [address] Care Team Providers Name Role Phone Hemant Attending Clinician Unavailable Corwin Attending Clinician Unavailable SAVANNA LUIS Attending Clinician Unavailable Yandel Gu Attending Clinician Unavailable UNKNOWN Attending Clinician Unavailable SCARLETT HUA Attending Clinician Unavailable Hemant Admitting Clinician Unavailable Yandel Gu Admitting Clinician Unavailable JAVID Admitting Clinician Unavailable Payers Payer Name Policy Type Policy Number Effective Date Expiration Date S kristina [facility] [id number] 2017 00:00:00 Problems This patient has no known problems. Allergies, Adverse Reactions, Alerts Allergy Allergy Status Severity Reaction(s) Onset Inactive Treating Comm ents Source Name Type Date Date Clinician AMIODARO DRUG Active High Rash 2020-0 [facility] NE INGREDI 7-13 ity of 00:00: [address] CLOPIDOG DRUG Active High Rash 2020-0 [facility] REL INGREDI 7-13 ity of 00:00: [address] Sulfa DA Active SV 2020-0 [facility] ([facility] 00:[facility]: [place] [facility] Center Sulfa DA Active SV JAUNDICE 0 [facility] ([place] [facility] 00:[facility]: [place] [facility] Center SULFA Drug Active High Unknown-Cmnt Univ ers (SULFONA Class 2-04 ity of MIDE 00:00: [place] ANTIBIOT 00 Medical ICS) Branch Salicyla DA Active U [facility] malgorzata 02-15 [place] 00:00: [facility] 00 [facility] Pyrazolo DA Active U [facility] nicci 02-15 [place] 00:00: [facility] 00 [facility] NSAIDS DA Active U [facility] (Non-Daljit 02-15 [place] roidal 00:00: [facility] Anti-Inf 00 dic lamma Hospita l diclofen DA Active U [facility] ac 02-15 [place] 00:00: [facility] 00 [facility] NO KNOWN Drug Active Univers ALLERGIE Class ity of S [facility] Medications This patient has no known medications. Procedures Procedure Date / Time Performed Performing Clinician [facility] howie [id number] 2021-01-21 00:00:00 [facility] [id number] 2021-01-21 00:00:00 [facility] [id number] 2021-01-21 00:00:00 [facility] [id number] 2021-01-21 00:00:00 [facility] [id number] 2021-01-21 00:00:00 [facility] [id number] 2021-01-21 00:00:00 [facility] [id number] 2021-01-21 00:00:00 [facility] [id number] 2021-01-21 00:00:00 [facility] [id number] 2021-01-15 00:00:00 [facility] [id number] 2021-01-15 00:00:00 [facility] Encounters Start End Encounter Admission Attending Care Care Encounter Source Date/Time Date/Time Type Type Clinicians Facility Department ID 2021-06-13 Inpatient JOANNA Marcos [facility] [id number] [facility] 09:14:51 Jewels 60 [facility] 2021-02-14 Inpatient PHILOMENA Olivia [id number] [facility] 07:30:00 Momo [id number] [place] [facility] 2021-03-08 2021-03-08 Outpatient R TOBY [facility] [id number] Univers 12:30:00 12:30:00 DION shine [facility] 2021-01-31 2021-02-02 Inpatient EM Brittanie HCAWU MED [id number] [facility] 15:28:00 14:07:00 Jakub [id number] [facility] 2021-01-31 2021-02-02 Inpatient EM Brittanie HCA[facility]U MED [id number] [facility] 15:28:00 14:07:00 Jakub [id number] [facility] 2021-01-30 2021-01-30 Inpatient EM Brittanie HCA[facility]U MED [id number] [facility] 22:32:00 22:31:00 Jakub [id number] [facility] 2021-01-14 2021-01-29 Inpatient UR Hemant HCAWU INTE [id number] [facility] 10:28:00 12:52:00 Jewels [id number] [facility] 2021-01-24 2021-01-24 Outpatient UNKNOWN HCANW REF [id number] [id number] [facility] 07:50:00 07:50:00 [id number] [facility] Results Test Description Test Time Test Comments Results Result Comments Source GLUCOSE BEDSIDE TESTING 2021-02-02 11:06:00 Test Item Value Reference Range Interpretation Comme nts GLUCOSE BEDSIDE TESTING (test code = GLUBED) 311 MG/DL 60-99 HH GLUCOSE BEDSIDE [id number] 07:08:00 Test Item Value Reference Range Interpretation Comments GLUCOSE BEDSIDE TESTING (test code 255 MG/DL 60-99 H = GLUBED) GLUCOSE BEDSIDE [id number] 19:38:00 Test Item Value Reference Range Interpretation Comments GLUCOSE BEDSIDE TESTING (test code 379 MG/DL 60-99 HH = GLUBED) GLUCOSE BEDSIDE [id number] 15:12:00 Test Item Value Reference Range Interpretation Comments GLUCOSE BEDSIDE TESTING (test code 328 MG/DL 60-99 HH = GLUBED) GLUCOSE BEDSIDE [id number] 11:42:00 Test Item Value Reference Range Interpretation Comments GLUCOSE BEDSIDE TESTING (test code 275 MG/DL 60-99 H = GLUBED) GLUCOSE BEDSIDE [id number] 07:09:00 Test Item Value Reference Range Interpretation Comments GLUCOSE BEDSIDE TESTING (test code 136 MG/DL 60-99 H = GLUBED) GLUCOSE BEDSIDE [id number] 05:17:00 Test Item Value Reference Range Interpretation Comments GLUCOSE BEDSIDE TESTING (test code 227 MG/DL 60-99 H = GLUBED) GLUCOSE BEDSIDE [id number] 19:32:00 Test Item Value Reference Range Interpretation Comments GLUCOSE BEDSIDE TESTING (test code 319 MG/DL 60-99 HH = GLUBED) GLUCOSE BEDSIDE [id number] 17:19:00 Test Item Value Reference Range Interpretation Comments GLUCOSE BEDSIDE TESTING (test code 267 MG/DL 60-99 H = GLUBED) GLUCOSE BEDSIDE [id number] 11:32:00 Test Item Value Reference Range Interpretation Comments GLUCOSE BEDSIDE TESTING (test code 350 MG/DL 60-99 HH = GLUBED) GLUCOSE BEDSIDE [id number] 07:18:00 Test Item Value Reference Range Interpretation Comments GLUCOSE BEDSIDE TESTING (test code 252 MG/DL 60-99 H = GLUBED) BASIC METABOLIC [id number] 00:40:00 Test Item Value Reference Range Interpretation Comments SODIUM (test code = 135 MMOL/L 137-145 L NA) POTASSIUM (test code = 4.0 MMOL/L 3.5-5.1 N K) CHLORIDE (test code = 100 MMOL/L 98-107 N CL) CARBON DIOXIDE (test 23 MMOL/L 22-30 N code = CO2) ANION GAP (test code = 16 MMOL/L 14-24 N GAP) GLUCOSE (test code = 167 MG/DL 74-106 H GLU) BLOOD UREA NITROGEN 20 MG/DL 9-20 (test code = BUN) GLOMERULAR FILTRATION > 60 Report ing units: RATE (test code = GFR) ml/mi n/1.73 m2 (Modified MDRD Formula)Referen ce Range: > or = 6 0 ml/min/1.73 m2 CREATININE (test code 0.90 MG/DL 0.66-1.25 N = CREAT) CALCIUM (test code = 8.3 MG/DL 8.4-10.2 L CA) CBC W/AUTO [id number] 00:29:00 Test Item Value Reference Range Interpretation Comments WHITE BLOOD CELL (test code = 13.0 K/MM3 3.8-9.8 H WBC) RED BLOOD CELL (test code = 3.51 M/MM3 3.95-5.67 L RBC) HEMOGLOBIN (test code = HGB) 10.9 G/DL 12.4-16.7 L HEMATOCRIT (test code = HCT) 34.1 % 35.9-49.5 L MEAN CELL VOLUME (test code = 97 fL 81.7-96.1 H MCV) MEAN CELL HGB (test code = MCH) 31.1 pg 27.6-33.2 N MEAN CELL HGB CONCETRATION 32.0 % 32.9-35.5 L (test code = MCHC) RED CELL DISTRIBUTION WIDTH 12.9 % 12.1-15.2 N (test code = RDW) PLATELET COUNT (test code = 576 K/MM3 129-368 H PLT) MEAN PLATELET VOLUME (test code 8.9 fl 7.4-10.4 N = MPV) NEUTROPHIL % (test code = NT%) 70.2 % 43-75 N IMMATURE GRANULOCYTE % (test 4.3 % 0.0-2.0 H code = IG%) LYMPHOCYTE % (test code = LY%) 17.1 % 14-44 N MONOCYTE % (test code = MO%) 6.0 % 4-13 N EOSINOPHIL % (test code = EO%) 2.0 % 0-6 N BASOPHIL % (test code = BA%) 0.4 % 0-2 N NUCLEATED RBC % (test code = 0.0 % 0-1.0 N NRBC%) NEUTROPHIL # (test code = NT#) 9.16 K/mm3 2.0-7.6 H IMMATURE GRANULOCYTE # (test 0.56 x10 3/uL 0-0.03 H code = IG#) LYMPHOCYTE # (test code = LY#) 2.23 K/mm3 1.0-3.8 N MONOCYTE # (test code = MO#) 0.78 K/mm3 0.1-0.8 N EOSINOPHIL # (test code = EO#) 0.26 K/mm3 0.0-0.2 H BASOPHIL # (test code = BA#) 0.05 K/mm3 0.0-0.2 N NUCLEATED RBC # (test code = 0.00 K/mm3 0.0-0.1 N NRBC#) GLUCOSE BEDSIDE [id number] 07:42:00 Test Item Value Reference Range Interpretation Comments GLUCOSE BEDSIDE TESTING (test code 213 MG/DL 60-99 H = GLUBED) GLUCOSE BEDSIDE [id number] 11:22:00 Test Item Value Reference Range Interpretation Comments GLUCOSE BEDSIDE TESTING (test code 268 MG/DL 60-99 H = GLUBED) GLUCOSE BEDSIDE [id number] 08:39:00 Test Item Value Reference Range Interpretation Comments GLUCOSE BEDSIDE TESTING (test code 216 MG/DL 60-99 H = GLUBED) GLUCOSE BEDSIDE [id number] 15:42:00 Test Item Value Reference Range Interpretation Comments GLUCOSE BEDSIDE TESTING (test code 295 MG/DL 60-99 H = GLUBED) GLUCOSE BEDSIDE [id number] 07:38:00 Test Item Value Reference Range Interpretation Comments GLUCOSE BEDSIDE TESTING (test code 229 MG/DL 60-99 H = GLUBED) BASIC METABOLIC [id number] 04:43:00 Test Item Value Reference Range Interpretation Comments SODIUM (test code = 136 MMOL/L 137-145 L NA) POTASSIUM (test code = 4.0 MMOL/L 3.5-5.1 N K) CHLORIDE (test code = 103 MMOL/L 98-107 N CL) CARBON DIOXIDE (test 27 MMOL/L 22-30 N code = CO2) GLUCOSE (test code = 190 MG/DL 74-106 H GLU) BLOOD UREA NITROGEN 13 MG/DL 9-20 N (test code = BUN) GLOMERULAR FILTRATION > 60 Report ing units: RATE (test code = GFR) ml/mi n/1.73 m2 (Modified MDRD Formula)Referen ce Range: > or = 6 0 ml/min/1.73 m2 CREATININE (test code 0.70 MG/DL 0.66-1.25 N = CREAT) CALCIUM (test code = 8.3 MG/DL 8.4-10.2 L CA) CBC W/AUTO [id number] 04:27:00 Test Item Value Reference Range Interpretation Comments WHITE BLOOD CELL (test code = 10.3 K/MM3 3.8-9.8 H WBC) RED BLOOD CELL (test code = 3.23 M/MM3 3.95-5.67 L RBC) HEMOGLOBIN (test code = HGB) 10.2 G/DL 12.4-16.7 L HEMATOCRIT (test code = HCT) 30.8 % 35.9-49.5 L MEAN CELL VOLUME (test code = 95 fL 81.7-96.1 N MCV) MEAN CELL HGB (test code = MCH) 31.6 pg 27.6-33.2 N MEAN CELL HGB CONCETRATION 33.1 % 32.9-35.5 N (test code = MCHC) RED CELL DISTRIBUTION WIDTH 12.6 % 12.1-15.2 N (test code = RDW) PLATELET COUNT (test code = 339 K/MM3 129-368 PLT) MEAN PLATELET VOLUME (test code 9.2 fl 7.4-10.4 N = MPV) NEUTROPHIL % (test code = NT%) 54.1 % 43-75 N IMMATURE GRANULOCYTE % (test 5.3 % 0.0-2.0 H code = IG%) LYMPHOCYTE % (test code = LY%) 19.7 % 14-44 N MONOCYTE % (test code = MO%) 14.1 % 4-13 H EOSINOPHIL % (test code = EO%) 6.1 % 0-6 H BASOPHIL % (test code = BA%) 0.7 % 0-2 N NUCLEATED RBC % (test code = 0.0 % 0-1.0 N NRBC%) NEUTROPHIL # (test code = NT#) 5.58 K/mm3 2.0-7.6 N IMMATURE GRANULOCYTE # (test 0.55 x10 3/uL 0-0.03 H code = IG#) LYMPHOCYTE # (test code = LY#) 2.04 K/mm3 1.0-3.8 N MONOCYTE # (test code = MO#) 1.46 K/mm3 0.1-0.8 H EOSINOPHIL # (test code = EO#) 0.63 K/mm3 0.0-0.2 H BASOPHIL # (test code = BA#) 0.07 K/mm3 0.0-0.2 N NUCLEATED RBC # (test code = 0.00 K/mm3 0.0-0.1 N NRBC#) DIFFERENTIAL [id number] 04:27:00 Test Item Value Reference Range Interpretation Comments RBC MORPHOLOGY REQUIRED (test code = RBCM) PLATELET ESTIMATE (test code = PLTEST) ADEQUATE PLATELET MORPHOLOGY (test code = NORMAL PLTMORPH) CBC W/AUTO [id number] 04:27:00 Test Item Value Reference Range Interpretation Comments WHITE BLOOD CELL (test code = 10.3 K/MM3 3.8-9.8 H WBC) RED BLOOD CELL (test code = 3.23 M/MM3 3.95-5.67 L RBC) HEMOGLOBIN (test code = HGB) 10.2 G/DL 12.4-16.7 L HEMATOCRIT (test code = HCT) 30.8 % 35.9-49.5 L MEAN CELL VOLUME (test code = 95 fL 81.7-96.1 N MCV) MEAN CELL HGB (test code = MCH) 31.6 pg 27.6-33.2 N MEAN CELL HGB CONCETRATION 33.1 % 32.9-35.5 N (test code = MCHC) RED CELL DISTRIBUTION WIDTH 12.6 % 12.1-15.2 N (test code = RDW) PLATELET COUNT (test code = 339 K/MM3 129-368 PLT) MEAN PLATELET VOLUME (test code 9.2 fl 7.4-10.4 N = MPV) NEUTROPHIL % (test code = NT%) 54.1 % 43-75 N IMMATURE GRANULOCYTE % (test 5.3 % 0.0-2.0 H code = IG%) LYMPHOCYTE % (test code = LY%) 19.7 % 14-44 N MONOCYTE % (test code = MO%) 14.1 % 4-13 H EOSINOPHIL % (test code = EO%) 6.1 % 0-6 H BASOPHIL % (test code = BA%) 0.7 % 0-2 N NUCLEATED RBC % (test code = 0.0 % 0-1.0 N NRBC%) NEUTROPHIL # (test code = NT#) 5.58 K/mm3 2.0-7.6 N IMMATURE GRANULOCYTE # (test 0.55 x10 3/uL 0-0.03 H code = IG#) LYMPHOCYTE # (test code = LY#) 2.04 K/mm3 1.0-3.8 N MONOCYTE # (test code = MO#) 1.46 K/mm3 0.1-0.8 H EOSINOPHIL # (test code = EO#) 0.63 K/mm3 0.0-0.2 H BASOPHIL # (test code = BA#) 0.07 K/mm3 0.0-0.2 N NUCLEATED RBC # (test code = 0.00 K/mm3 0.0-0.1 N NRBC#) DIFFERENTIAL [id number] 04:27:00 Test Item Value Reference Range Interpretation Comments RBC MORPHOLOGY REQUIRED (test code = RBCM) PLATELET ESTIMATE (test code = PLTEST) ADEQUATE PLATELET MORPHOLOGY (test code = NORMAL PLTMORPH) GLUCOSE BEDSIDE [id number] 20:06:00 Test Item Value Reference Range Interpretation Comments GLUCOSE BEDSIDE TESTING (test code 298 MG/DL 60-99 H = GLUBED) GLUCOSE BEDSIDE [id number] 17:13:00 Test Item Value Reference Range Interpretation Comments GLUCOSE BEDSIDE TESTING (test code 215 MG/DL 60-99 H = GLUBED) GLUCOSE BEDSIDE [id number] 11:39:00 Test Item Value Reference Range Interpretation Comments GLUCOSE BEDSIDE TESTING (test code 247 MG/DL 60-99 H = GLUBED) GLUCOSE BEDSIDE [id number] 08:13:00 Test Item Value Reference Range Interpretation Comments GLUCOSE BEDSIDE TESTING (test code 209 MG/DL 60-99 H = GLUBED) GLUCOSE BEDSIDE [id number] 21:27:00 Test Item Value Reference Range Interpretation Comments GLUCOSE BEDSIDE TESTING (test code 217 MG/DL 60-99 H = GLUBED) GLUCOSE BEDSIDE [id number] 16:26:00 Test Item Value Reference Range Interpretation Comments GLUCOSE BEDSIDE TESTING (test code 205 MG/DL 60-99 H = GLUBED) CBC W/AUTO [id number] 12:18:00 Test Item Value Reference Range Interpretation Comments WHITE BLOOD CELL (test code = 9.3 K/MM3 3.8-9.8 N WBC) RED BLOOD CELL (test code = 3.23 M/MM3 3.95-5.67 L RBC) HEMOGLOBIN (test code = HGB) 10.1 G/DL 12.4-16.7 L HEMATOCRIT (test code = HCT) 30.9 % 35.9-49.5 L MEAN CELL VOLUME (test code = 96 fL 81.7-96.1 N MCV) MEAN CELL HGB (test code = MCH) 31.3 pg 27.6-33.2 N MEAN CELL HGB CONCETRATION 32.7 % 32.9-35.5 L (test code = MCHC) RED CELL DISTRIBUTION WIDTH 12.5 % 12.1-15.2 N (test code = RDW) PLATELET COUNT (test code = 229 K/MM3 129-368 PLT) MEAN PLATELET VOLUME (test code 9.7 fl 7.4-10.4 N = MPV) NEUTROPHIL % (test code = NT%) 66.5 % 43-75 N IMMATURE GRANULOCYTE % (test 2.4 % 0.0-2.0 H code = IG%) LYMPHOCYTE % (test code = LY%) 12.2 % 14-44 L MONOCYTE % (test code = MO%) 14.8 % 4-13 H EOSINOPHIL % (test code = EO%) 3.7 % 0-6 N BASOPHIL % (test code = BA%) 0.4 % 0-2 N NUCLEATED RBC % (test code = 0.0 % 0-1.0 N NRBC%) NEUTROPHIL # (test code = NT#) 6.16 K/mm3 2.0-7.6 N IMMATURE GRANULOCYTE # (test 0.22 x10 3/uL 0-0.03 H code = IG#) LYMPHOCYTE # (test code = LY#) 1.13 K/mm3 1.0-3.8 N MONOCYTE # (test code = MO#) 1.37 K/mm3 0.1-0.8 H EOSINOPHIL # (test code = EO#) 0.34 K/mm3 0.0-0.2 H BASOPHIL # (test code = BA#) 0.04 K/mm3 0.0-0.2 N NUCLEATED RBC # (test code = 0.00 K/mm3 0.0-0.1 N NRBC#) Comments to Ice Rink Attendant: USE BLOOD RECENTLY COLLECTED IF POSSIBLEIs this a LINE draw? YGLUCOSE BEDSIDE [id number] 11:33:00 Test Item Value Reference Range Interpretation Comments GLUCOSE BEDSIDE TESTING (test code 235 MG/DL 60-99 H = GLUBED) BASIC METABOLIC [id number] 10:34:00 Test Item Value Reference Range Interpretation Comments SODIUM (test code = 133 MMOL/L 137-145 L NA) POTASSIUM (test code = 3.9 MMOL/L 3.5-5.1 N K) CHLORIDE (test code = 100 MMOL/L 98-107 N CL) CARBON DIOXIDE (test 26 MMOL/L 22-30 N code = CO2) GLUCOSE (test code = 298 MG/DL 74-106 H GLU) BLOOD UREA NITROGEN 16 MG/DL 9-20 N (test code = BUN) GLOMERULAR FILTRATION > 60 Report ing units: RATE (test code = GFR) ml/mi n/1.73 m2 (Modified MDRD Formula)Referen ce Range: > or = 6 0 ml/min/1.73 m2 CREATININE (test code 0.90 MG/DL 0.66-1.25 N = CREAT) CALCIUM (test code = 8.3 MG/DL 8.4-10.2 L CA) [id number] 10:34:00 Test Item Value Reference Range Interpretation Comments MAGNESIUM (test code = MAG) 1.8 MG/DL 1.6-2.3 N - XR CHEST [id number] 08:38:00 [facility] 1960 Sex: M Patient Name: JUSTICE MARS Unit No: [id number] EXAMS: CPT CODE: [id number] XR CHEST 1V [id number] EXAMINATION: - XR CHEST 1V. LOCATION: B2. HISTORY: COUGH. COMPARISON: Radiograph dated 01/25/2021. TECHNIQUE: Single AP view of the chest was obtained. FINDINGS: Right subclavian line is unchanged in position. The heart is mildly enlarged in size. Left basilar opacities are present,increased since prior exam. Linear atelectasis is seen in the right lung base, unchanged. Nonew osseous abnormality is identified. IMPRESSION: Interval increase of left basilar opacities, which may represent infiltrates or atelectasis. Mild right basilar atelectasis, unchanged. Mild cardiomegaly. at 0838 Reported and signed by: Manuel Woodward MD CC: Jewels Marcos MD Technologist: Wicho Marvin, RT(R) Transcrpt Date/Tm/Trnsp: 01/26/2021 (0838) [email or web address] Orig Print D/T: S: 01/26/2021 (0841) [facility] NAME: JUSTICE MASR [id number] PHYS: [place] [address] : 1960 AGE: 60 SEX: M LOC: UNK PHONE #: [phone] EXAM DATE: 01/26/2021 STATUS: DIS IN FAX #: [phone] RADIOLOGY NO: PAGE 1 Signed Report- XR CHEST [id number] 08:38[facility]00[facility] 1960 Sex: M Patient Name: JUSTICE MARS Unit No: [id number] EXAMS: CPT CODE: [id number] XR CHEST 1V [id number] EXAMINATION: - XR CHEST 1V. LOCATION: B2. HISTORY: COUGH. COMPARISON: Radiograph dated 01/25/2021. TECHNIQUE: Single AP view of the chest was obtained. FINDINGS: Right subclavian line is unchanged in position. The heart is mildly enlarged in size. Left basilar opacities are present,increased since prior exam. Linear atelectasis is seen in the right lung base, unchanged. Nonew osseous abnormality is identified. IMPRESSION: Interval increase of left basilar opacities, which may represent infiltrates or atelectasis. Mild right basilar atelectasis, unchanged. Mild cardiomegaly. at 0838 Reported and signed by: Manuel Woodward MD CC: Jewels Marcos MD Technologist: Wicho Marvin, RT(R) Transcrpt Date/Tm/Trnsp: 01/26/2021 (0838) [id number] Orig Print D/T: S: 01/26/2021 (0841) [facility] NAME: JUSTICE MARS [id number] PHYS: [place] [address] : 1960 AGE: 60 SEX: M LOC: [id number].SI01 A PHONE #: [phone] EXAM DATE: 01/26/2021 STATUS: ADM IN FAX #: [phone] RADIOLOGY NO: PAGE 1 Signed ReportGLUCOSE BEDSIDE TESTING 2021-01-26 07:30:00 Test Item Value Reference Range Interpretation Comments GLUCOSE BEDSIDE TESTING (test code 179 MG/DL 60-99 H = GLUBED) GLUCOSE BEDSIDE [id number] 20:18:00 Test Item Value Reference Range Interpretation Comments GLUCOSE BEDSIDE TESTING (test code 189 MG/DL 60-99 H = GLUBED) GLUCOSE BEDSIDE [id number] 16:09:00 Test Item Value Reference Range Interpretation Comments GLUCOSE BEDSIDE TESTING (test code 208 MG/DL 60-99 H = GLUBED) POC ARTERIAL BLOOD [id number] 12:10:00 Test Item Value Reference Range Interpretation Comments POC ARTERIAL BLOOD GAS PH 7.346 7.35-7.45 L (test code = POCPHA) POC ARTERIAL BLOOD GAS PCO2 46.2 mmHg 35.0-45.0 H (test code = MVUFCZ2C) POC ARTERIAL BLOOD GAS PO2 377.8 75.0-100.0 HH (test code = XOLGI0L) POC HCO3 ARTERIAL (test 25.3 MMOL/L 20.0-26.0 N code = [id number]) POC BASE EXCESS (test code -0.9 MMOL/L -3.0-3.0 N = POCBEA) POC O2 SATURATION (test 99.9 % 92.0-98.5 H code = POCO2S) SODIUM (test code = NA/ABG) 135 MMOL/L 135-141 N POTASSIUM (test code = 6.2 MMOL/L 3.7-4.7 HH K/ABG) CHLORIDE (test code = 103 MEQ/L CL/ABG) POC IONIZED CALCIUM (test 1.12 MMOL/L 1.13-1.32 L code = POCCA) POC GLUCOSE (test code = 239 MG/DL 60-99 H POCGLU) POC SAMPLE SOURCE (test Arterial Descript Specimen code = POCSAMPLE) LACTIC ACID POC (test code 1.21 mmol/L 0.7-2.0 N = LACTP) POC ARTERIAL BLOOD [id number] 12:09:00 Test Item Value Reference Range Interpretation Comments POC ARTERIAL BLOOD GAS PH 7.405 7.35-7.45 N (test code = POCPHA) POC ARTERIAL BLOOD GAS PCO2 38.9 mmHg 35.0-45.0 N (test code = QBTTIM4L) POC ARTERIAL BLOOD GAS PO2 362.3 75.0-100.0 HH (test code = RMXKT8E) POC HCO3 ARTERIAL (test 24.4 MMOL/L 20.0-26.0 N code = CXHUHQ0L) POC BASE EXCESS (test code -0.3 MMOL/L -3.0-3.0 N = POCBEA) POC O2 SATURATION (test 100.0 % 92.0-98.5 H code = POCO2S) SODIUM (test code = NA/ABG) 136 MMOL/L 135-141 N POTASSIUM (test code = 6.2 MMOL/L 3.7-4.7 HH K/ABG) CHLORIDE (test code = 102 MEQ/L CL/ABG) POC IONIZED CALCIUM (test 1.04 MMOL/L 1.13-1.32 L code = POCCA) POC GLUCOSE (test code = 202 MG/DL 60-99 H POCGLU) POC SAMPLE SOURCE (test Arterial Descript Specimen code = POCSAMPLE) LACTIC ACID POC (test code 1.60 mmol/L 0.7-2.0 N = LACTP) POC ARTERIAL BLOOD [id number] 12:09:00 Test Item Value Reference Range Interpretation Comments POC ARTERIAL BLOOD GAS PH 7.335 7.35-7.45 L (test code = POCPHA) POC ARTERIAL BLOOD GAS PCO2 44.9 mmHg 35.0-45.0 N (test code = OINHFX6I) POC ARTERIAL BLOOD GAS PO2 626.8 75.0-100.0 HH (test code = JFGUD9V) POC HCO3 ARTERIAL (test 24.0 MMOL/L 20.0-26.0 N code = GYWUTY5L) POC BASE EXCESS (test code -1.9 MMOL/L -3.0-3.0 N = POCBEA) POC O2 SATURATION (test 100.0 % 92.0-98.5 H code = POCO2S) SODIUM (test code = NA/ABG) 133 MMOL/L 135-141 L POTASSIUM (test code = 6.4 MMOL/L 3.7-4.7 HH K/ABG) CHLORIDE (test code = 100 MEQ/L CL/ABG) POC IONIZED CALCIUM (test 0.97 MMOL/L 1.13-1.32 L code = POCCA) POC GLUCOSE (test code = 196 MG/DL 60-99 H POCGLU) POC SAMPLE SOURCE (test Arterial Descript Specimen code = POCSAMPLE) LACTIC ACID POC (test code 1.41 mmol/L 0.7-2.0 N = LACTP) GLUCOSE BEDSIDE [id number] 11:55:00 Test Item Value Reference Range Interpretation Comments GLUCOSE BEDSIDE TESTING (test code 218 MG/DL 60-99 H = GLUBED) GLUCOSE BEDSIDE [id number] 10:19:00 Test Item Value Reference Range Interpretation Comments GLUCOSE BEDSIDE TESTING (test code 170 MG/DL 60-99 H = GLUBED) - XR CHEST [id number] 07:58:00 [facility] 1960 Sex: M Patient Name: JUSTICE MARS Unit No: [id number] EXAMS: CPT CODE: [id number] XR CHEST 1V 18189 EXAMINATION: - XR CHEST 1V HISTORY: Postop COMPARISON: Chest x-ray performed the previous day LOCATION CODE: C3 FINDINGS: Single frontal view of the chest is submitted for evaluation. Mild linear changes in the mid and lower lungs remain present and are stable in appearance. Cardiomediastinal silhouette and mediastinal contours are stable. Right internal jugular vein central venous catheter is unchanged. Postsurgical changes in the cervical spine and left shoulder are stable. IMPRESSION: No significant change from the prior study at 0758 Reported and signed by: Ella Santoro MD CC: [email or web address] Marcos MD Technologist: Kerry Cerna, RT(R) Transcrpt Date/Tm/Trnsp: 01/25/2021 (0758) [email or web address] Orig Print D/T: S: 01/25/2021 (08) [facility] NAME: JUSTICE MARS [id number] PHYS: [place] [address] : 1960 AGE: 60 SEX: M LOC: K PHONE #: [phone] EXAM DATE: 01/25/2021 STATUS: DIS IN FAX #: [phone] RADIOLOGY NO: PAGE 1 Signed Report- XR CHEST 1V 2021-01-25 07:58:00 [facility] 1960 Sex: M Patient Name: JUSTICE MARS Unit No: [id number] EXAMS: CPT CODE: [id number] XR CHEST 1V 71439 EXAMINATION: - XR CHEST 1V HISTORY: Postop COMPARISON: Chest x-ray performed the previous day LOCATION CODE: C3 FINDINGS: Single frontal view of the chest is submitted for evaluation. Mild linear changes in the mid and lower lungs remain present and are stable in appearance. Cardiomediastinal silhouette and mediastinal contours are stable. Right internal jugular vein central venous catheter is unchanged. Postsurgical changes in the cervical spine and left shoulder are stable. IMPRESSION: No significant change from the prior study at 0758 Reported and signed by: Ella Santoro MD CC: Jewels Marcos MD Technologist: Kerry Cerna, RT(R) Transcrpt Date/Tm/Trnsp: 01/25/2021 (0758) [email or web address] Orig Print D/T: S: 01/25/2021 (08) [facility] [facility] NAME: JUSTICE MARS [id number] PHYS: [place] [address] : 1960 AGE: 60 SEX: M LOC: Z.SI01 A PHONE #: [phone] EXAM DATE: 01/25/2021 STATUS: ADM IN FAX #: [phone] RADIOLOGY NO: PAGE 1 Signed ReportGLUCOSE BEDSIDE [id number] 07:41:00 Test Item Value Reference Range Interpretation Comments GLUCOSE BEDSIDE TESTING (test code 160 MG/DL 60-99 H = GLUBED) GLUCOSE BEDSIDE [id number] 20:43:00 Test Item Value Reference Range Interpretation Comments GLUCOSE BEDSIDE TESTING (test code 220 MG/DL 60-99 H = GLUBED) GLUCOSE BEDSIDE [id number] 18:00:00 Test Item Value Reference Range Interpretation Comments GLUCOSE BEDSIDE TESTING (test code 135 MG/DL 60-99 H = GLUBED) HEPARIN INDUCED [id number] 14:54:00 Test Item Value Reference Range Interpretation Comments HEPARIN INDUCED NEGATIVE See_Comment The HIT (PF4 ) test is a AB (test code = qualitative, fully automated HITAB) lateximmunoassa y that detects, IgG, I gM and IgA associatedantib odies and is used as a prima ry screening assay for thede tection of Platelet Factor 4 Heparin-Depende nt Antibodies.Posi tive or negative is the final interpreted res ult. Thepositive or negative result should b e used with otherinformatio n, including the clinical co ntext, in forming adiagno sis such as the 4T score an d the 2013 [employer] guidelines. NEG ATIVE results indicate the ab sence of Platelet Factor 4Heparin-Depend ent Antibodies to IgG, IgM or IgA. A negativeresult for anti-PF4 heparin antibod ies can support theclin ical decision to exclude the presence of HIT, andtherefo re continue heparin treatme nt. POSITIVE results indicat e the presence of Platelet Fac tor 4Heparin-Depend ent Antibodies to IgG, IgM or IgA. Although apositive resul t obtained using this assa y may indicate thepresence of heparin-associa quoc antibodies, a p ositive resultDOES NOT CONFIRM the diagnosis of HI T. Confirmation wi th afunctional test is recomme nded. A clinical reasse smentsupported by laboratory d aguila should be performed befor econfirmation or exclusion of the diagnosis. Some patientsmay have naturally occurring antibodies to P F4. If clinically russell cated, a repeat study is recommended in2-3 days afte r the patient has been off he alex for at least4 hours. [ Automated message] The sy stem which generated this result transmitted ref erence range: (). The referen ce range was not used to int erpret this result as marco l/abnormal. UNABLE TO DRAW BLOOD, REASON: do in am NOTIFIED PATIENT CARE STAFF: Aicha 01/23/21 AT 1906 BY Gabriella Leonard AnHEPARIN INDUCED [id number] 14:53:00 Test Item Value Reference Range Interpretation Comments HEPARIN INDUCED NEGATIVE The HIT (PF4 ) test is a THROMBOCYTOPEN (test qualita tive, fully code = HITAB) automated late ximmunoassay that detects, I gG, IgM and IgA associateda ntibodies and is used as a primary screening assay for thedetection of Platelet Factor 4 Hepari n-Dependent Antibodies.Posi tive or negative is the final interpreted res ult. Thepositive or negative result should b e used with otherinformatio n, including the c linical context, in for yolanda adiagnosis such as the 4T score and the 2 013 [employer] y[employer]ematology guid elines. NEGATIVE result s indicate the absence of Platelet Factor 4Heparin -Dependent Antibodies to I gG, IgM or IgA. A negative result for anti-PF4 hepari n antibodies can support theclinical dec ision to exclude the pre sence of HIT, andtherefo re continue heparin treatme nt. POSITIVE result s indicate the presence of Platelet Factor 4Heparin -Dependent Antibodies to I gG, IgM or IgA. Although a positive result obtained using this assay may indic ate thepresence of heparin-associa quoc antibodies, a p ositive resultDOES NOT CONFIRM the diagnosis of HI T. Confirmation wi th afunctional malgorzata t is recommended. A clinical reassesmentsupp orted by laboratory data should be performed beforeconfirmat ion or exclusion of th e diagnosis. Some patientsmay hav e naturally occurring antib odies to PF4. If clinica lly indicated, a re peat study is recommended in2-3 days after the patie nt has been off heparin for at least4 hours. UNABLE TO DRAW BLOOD, REASON: do in am NOTIFIED PATIENT CARE STAFF: Aicha 01/23/21 AT 1906 BY Gabriella Leonard An- XR CHEST [id number] 10:51:00 [facility] 1960 Sex: M Patient Name: JUSTICE MARS Unit No: [id number] EXAMS: CPT CODE: [id number] XR CHEST 1V [id number] CHEST 1 VIEW: INDICATION: CHEST TUBE REMOVAL COMPARISON: Comparison is made with previous study of 01/24/2021 at 0630 hours Location: C3 A single portable AP view of the chest demonstrates stable 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 A right subclavian line terminates in the SVC. The heart size is mildly enlarged. Linear bibasilar subsegmental atelectasis, unchanged. The upper lung rizzo are grossly clear. No apparent pleural effusion nor pneumothorax. The left chest tube has been removed over the interval. There are postsurgi sonal changes of left shoulder arthroplasty. IMPRESSION: 1. Linear bibasilar subsegmental atelectasis. 2. No apparent pneumothorax. at 1051 Reported and signed by: Facundo Jameson MD CC: Isabel Fernandez MD Technologist: Sergio Jacobs (RT) Transcrpt Date/Tm/Trnsp: 01/24/2021 (1051) [email or web address] Print D/T: S: 01/24/2021 (9032) [facility] NAME: JUSTICE MARS [id number] PHYS: [place] [address] : 1960 AGE: 60 SEX: M LOC: UNK PHONE #: [phone] EXAM DATE: 01/24/2021 STATUS: DIS IN FAX #: [phone] RADIOLOGY NO: PAGE 1 Signed Report- XR CHEST [id number] 10:51:00 [facility] : 1960 Sex: M Patient Name: JUSTICE MARS Unit No: [id number] EXAMS: CPT CODE: [id number] XR CHEST 1V 03564 CHEST 1 VIEW: INDICATION: CHEST TUBE REMOVAL COMPARISON: Comparison is made with previous study of 01/24/2021 at 0630 hours Location: C3 A single portable AP view of the chest demonstrates stable 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 A right subclavian line terminates in the SVC. The heart size is mildly enlarged. Linear bibasilar subsegmental atelectasis, unchanged. The upper lung rizzo are grossly clear. No apparent pleural effusion nor pneumothorax. The left chest tube has been removed over the interval. There are postsurgi sonal changes of left shoulder arthroplasty. IMPRESSION: 1. Linear bibasilar subsegmental atelectasis. 2. No apparent pneumothorax. at 1051 Reported and signed by: Facundo Jameson MD CC: Isabel Fernandez MD Technologist: Sergio Jacobs (RT) Transcrpt Date/Tm/Trnsp: 01/24/2021 (1051) [id number] Print D/T: S: 01/24/2021 (3231) [facility] NAME: JUSTICE MARS [id number] PHYS: [place] [address] : 1960 AGE: 60 SEX: M LOC: Z.SI01 A PHONE #: [phone] EXAM DATE: 01/24/2021 STATUS: ADM IN FAX #: [phone] RADIOLOGY NO: PAGE 1 Signed ReportPO ARTERIAL BLOOD [id number] 07:50:00 Test Item Value Reference Range Interpretation Comments POC ARTERIAL BLOOD GAS PH 7.436 7.35-7.45 N (test code = POCPHA) POC ARTERIAL BLOOD GAS PCO2 30.7 mmHg 35.0-45.0 L (test code = [id number]) POC ARTERIAL BLOOD GAS PO2 222.7 75.0-100.0 HH (test code = YJLAR3T) POC HCO3 ARTERIAL (test 20.7 MMOL/L 20.0-26.0 N code = [id number]) POC BASE EXCESS (test code -3.2 MMOL/L -3.0-3.0 L = POCBEA) POC O2 SATURATION (test 99.8 % 92.0-98.5 H code = POCO2S) FIO2 (test code = FIO2A) 80 % 21-100 N PaO2/FiO2 (test code = 278.37 mm/Hg [id number]) SODIUM (test code = NA/ABG) 141 MMOL/L 135-141 N POTASSIUM (test code = 3.9 MMOL/L 3.7-4.7 N K/ABG) CHLORIDE (test code = 100 MEQ/L CL/ABG) POC IONIZED CALCIUM (test 0.46 MMOL/L 1.13-1.32 LL code = POCCA) POC GLUCOSE (test code = 103 MG/DL 60-99 H POCGLU) POC SAMPLE SOURCE (test Arterial Descript Specimen code = POCSAMPLE) LACTIC ACID POC (test code 2.46 mmol/L 0.7-2.0 HH = LACTP) GLUCOSE BEDSIDE [id number] 07:46:00 Test Item Value Reference Range Interpretation Comments GLUCOSE BEDSIDE TESTING (test code 141 MG/DL 60-99 H = GLUBED) BASIC METABOLIC [id number] 07:26:00 Test Item Value Reference Range Interpretation Comments SODIUM (test code = 132 MMOL/L 137-145 L NA) POTASSIUM (test code = 4.2 MMOL/L 3.5-5.1 N K) CHLORIDE (test code = 98 MMOL/L 98-107 N CL) CARBON DIOXIDE (test 29 MMOL/L 22-30 N code = CO2) GLUCOSE (test code = 143 MG/DL 74-106 H GLU) BLOOD UREA NITROGEN 14 MG/DL 9-20 N (test code = BUN) GLOMERULAR FILTRATION > 60 Report ing units: RATE (test code = GFR) ml/mi n/1.73 m2 (Modified MDRD Formula)Referen ce Range: > or = 6 0 ml/min/1.73 m2 CREATININE (test code 0.80 MG/DL 0.66-1.25 N = CREAT) CALCIUM (test code = 8.6 MG/DL 8.4-10.2 N CA) CBC W/AUTO [id number] 07:12:00 Test Item Value Reference Range Interpretation Comments WHITE BLOOD CELL (test code = 13.9 K/MM3 3.8-9.8 H WBC) RED BLOOD CELL (test code = 3.30 M/MM3 3.95-5.67 L RBC) HEMOGLOBIN (test code = HGB) 10.5 G/DL 12.4-16.7 L HEMATOCRIT (test code = HCT) 31.5 % 35.9-49.5 L MEAN CELL VOLUME (test code = 96 fL 81.7-96.1 N MCV) MEAN CELL HGB (test code = MCH) 31.8 pg 27.6-33.2 N MEAN CELL HGB CONCETRATION 33.3 % 32.9-35.5 N (test code = MCHC) RED CELL DISTRIBUTION WIDTH 12.7 % 12.1-15.2 N (test code = RDW) PLATELET COUNT (test code = 121 K/MM3 129-368 L PLT) MEAN PLATELET VOLUME (test code 9.8 fl 7.4-10.4 N = MPV) NEUTROPHIL % (test code = NT%) 67.1 % 43-75 N IMMATURE GRANULOCYTE % (test 0.6 % 0.0-2.0 N code = IG%) LYMPHOCYTE % (test code = LY%) 18.7 % 14-44 N MONOCYTE % (test code = MO%) 12.1 % 4-13 N EOSINOPHIL % (test code = EO%) 1.4 % 0-6 N BASOPHIL % (test code = BA%) 0.1 % 0-2 N NUCLEATED RBC % (test code = 0.0 % 0-1.0 N NRBC%) NEUTROPHIL # (test code = NT#) 9.27 K/mm3 2.0-7.6 H IMMATURE GRANULOCYTE # (test 0.09 x10 3/uL 0-0.03 H code = IG#) LYMPHOCYTE # (test code = LY#) 2.59 K/mm3 1.0-3.8 N MONOCYTE # (test code = MO#) 1.68 K/mm3 0.1-0.8 H EOSINOPHIL # (test code = EO#) 0.20 K/mm3 0.0-0.2 N BASOPHIL # (test code = BA#) 0.02 K/mm3 0.0-0.2 N NUCLEATED RBC # (test code = 0.00 K/mm3 0.0-0.1 N NRBC#) - CHEST [id number] 06:52:00 [facility] 1960 Sex: M Patient Name: JUSTICE MARS Unit No: [id number] EXAMS: CPT CODE: [id number] XR CHEST 1V 08413 EXAM: CHEST ONE VIEW INDICATION: S/P CABG LOCATION: B2 COMPARISON: January 23, 2021 TECHNIQUE: AP view of the chest FINDINGS: The right central venous catheter is unchanged. The heart size is normal. There is evidence of prior thoracic surgery. There is minimal bibasilar atelectasis. The pul monary vasculature is normal. No pneumothorax or pleural effusion is identified. The osseous structures are normal. IMPRESSION: Minimal bibasilar atelectasis. at 0652 Reported and signed by: Omayra Zelaya MD CC: Isabel Fernandez MD Technologist: Patric Kruse, RT(R) Transcrpt Date/Tm/Trnsp: 01/24/2021 (0652) 16 Orig Print D/T: S: 01/24/2021 (0655) [facility] NAME: JUSTICE MARS [id number] PHYS: [place] [address] : 1960 AGE: 60 SEX: M LOC: [facility] PHONE #: [phone] EXAM DATE: 01/24/2021 STATUS: DIS IN FAX #: [phone] RADIOLOGY NO: PAGE 1 Signed Report- XR CHEST [id number] 06:52:00 [facility] : 1960 Sex: M Patient Name: JUSTICE MARS Unit No: [id number] EXAMS: CPT CODE: [id number] XR CHEST 1V 30827 EXAM: CHEST ONE VIEW INDICATION: S/P CABG LOCATION: B2 COMPARISON: January 23, 2021 TECHNIQUE: AP view of the chest FINDINGS: The right central venous catheter is unchanged. The heart size is normal. There is evidence of prior thoracic surgery. There is minimal bibasilar atelectasis. The pul monary vasculature is normal. No pneumothorax or pleural effusion is identified. The osseous structures are normal. IMPRESSION: Minimal bibasilar atelectasis. at 0652 Reported and signed by: Omayra Zelaya MD CC: Isabel Fernandez MD Technologist: Patric Kruse, RT(R) Transcrpt Date/Tm/Trnsp: 01/24/2021 (0652) 16 Orig Print D/T: S: 01/24/2021 (0655) [facility] NAME: JUSTICE MARS [id number] PHYS: [place] [address] : 1960 AGE: 60 SEX: M LOC: Z.SI02 A PHONE #: [phone] EXAM DATE: 01/24/2021 STATUS: ADM IN FAX #: [phone] RADIOLOGY NO: PAGE 1 Signed ReportGLUCOSE BEDSIDE [id number] 06:28:00 Test Item Value Reference Range Interpretation Comments GLUCOSE BEDSIDE TESTING (test code 227 MG/DL 60-99 H = GLUBED) GLUCOSE BEDSIDE [id number] 06:28:00 Test Item Value Reference Range Interpretation Comments GLUCOSE BEDSIDE TESTING (test code 246 MG/DL 60-99 H = GLUBED) GLUCOSE BEDSIDE [id number] 06:28:00 Test Item Value Reference Range Interpretation Comments GLUCOSE BEDSIDE TESTING (test code 194 MG/DL 60-99 H = GLUBED) GLUCOSE BEDSIDE [id number] 06:27:00 Test Item Value Reference Range Interpretation Comments GLUCOSE BEDSIDE TESTING (test code 193 MG/DL 60-99 H = GLUBED) GLUCOSE BEDSIDE [id number] 06:27:00 Test Item Value Reference Range Interpretation Comments GLUCOSE BEDSIDE TESTING (test code 217 MG/DL 60-99 H = GLUBED) GLUCOSE BEDSIDE [id number] 06:27:00 Test Item Value Reference Range Interpretation Comments GLUCOSE BEDSIDE TESTING (test code 171 MG/DL 60-99 H = GLUBED) GLUCOSE BEDSIDE [id number] 20:37:00 Test Item Value Reference Range Interpretation Comments GLUCOSE BEDSIDE TESTING (test code 159 MG/DL 60-99 H = GLUBED) - XR CHEST [id number] 07:00:00 [facility] 1960 Sex: M Patient Name: JUSTICE MARS Unit No: [id number] EXAMS: CPT CODE: [id number] XR CHEST 1V 10526 EXAM: CHEST ONE VIEW INDICATION: S/P CABG LOCATION: B2 COMPARISON: January 22, 2021 TECHNIQUE: AP view of the chest FINDINGS: The right-sided Repton-Jaimie catheter has been removed. The right central venous catheter is unchanged. The heart size is enlarged. There is evidence of prior thoracic surgery. There are mild congestive changes bilaterally. No pneumothorax or pleural effusion is identified. The osseous structures are normal. IMPRESSION: Cardiomegaly with mild congestive changes bilaterally. at 0700 Reported and signed by: Omayra Zelaya MD CC: Isabel Fernandez MD Technologist: Patric Kruse, RT(R) Transcrpt Date/Tm/Trnsp: 01/23/2021 (0700) 16 Orig Print D/T: S: 01/23/2021 (0703) [facility] NAME: JUSTICE MARS [id number] PHYS: [place] [address] : 1960 AGE: 60 SEX: M LOC: UNK PHONE #: [phone] EXAM DATE: 01/23/2021 STATUS: DIS IN FAX #: [phone] RADIOLOGY NO: PAGE1 Signed Report- XR CHEST [id number] 07:00:00[facility] : 1960 Sex: M Patient Name: JUSTICE MARS Unit No: [id number] EXAMS: CPT CODE: [id number] XR CHEST 1V 11942 EXAM: CHEST ONE VIEW INDICATION: S/P CABG LOCATION: B2 COMPARISON: January 22, 2021 TECHNIQUE: AP view of the chest FINDINGS: The right-sided Repton-Jaimie catheter has been removed. The right central venous catheter is unchanged. The heart size is enlarged. There is evidence of prior thoracic surgery. There are mild congestive changes bilaterally. No pneumothorax or pleural effusion is identified. The osseous structures are normal. IMPRESSION: Cardiomegaly with mild congestive changes bilaterally. at 0700 Reported and signed by: Omayra Zelaya MD CC: Isabel Fernandez MD Technologist: Patric Kruse, RT(R) Transcrpt Date/Tm/Trnsp: 01/23/2021 (0700) 16 Orig Print D/T: S: 01/23/2021 (0703) [facility] NAME: JUSTICE MARS [id number] PHYS: [place] [address] : 1960 AGE: 60 SEX: M LOC: Z.SI02 A PHONE #: [phone] EXAM DATE: 01/23/2021 STATUS: ADM IN FAX #: [phone] RADIOLOGY NO: PAGE1 Signed ReportBASIC METABOLIC PANEL 2021-01-23 04:25:00 Test Item Value Reference Range Interpretation Comments SODIUM (test code = 130 MMOL/L 137-145 L NA) POTASSIUM (test code = 4.9 MMOL/L 3.5-5.1 N K) CHLORIDE (test code = 99 MMOL/L 98-107 N CL) CARBON DIOXIDE (test 28 MMOL/L 22-30 N code = CO2) ANION GAP (test code = 8 MMOL/L 14-24 L GAP) GLUCOSE (test code = 167 MG/DL 74-106 H GLU) BLOOD UREA NITROGEN 13 MG/DL 9-20 N (test code = BUN) GLOMERULAR FILTRATION > 60 Report ing units: RATE (test code = GFR) ml/mi n/1.73 m2 (Modified MDRD Formula)Referen ce Range: > or = 6 0 ml/min/1.73 m2 CREATININE (test code 0.80 MG/DL 0.66-1.25 N = CREAT) CALCIUM (test code = 8.1 MG/DL 8.4-10.2 L CA) CBC W/AUTO [id number] 04:01:00 Test Item Value Reference Range Interpretation Comments WHITE BLOOD CELL (test code = 13.2 K/MM3 3.8-9.8 H WBC) RED BLOOD CELL (test code = 3.22 M/MM3 3.95-5.67 L RBC) HEMOGLOBIN (test code = HGB) 10.2 G/DL 12.4-16.7 L HEMATOCRIT (test code = HCT) 30.6 % 35.9-49.5 L MEAN CELL VOLUME (test code = 95 fL 81.7-96.1 N MCV) MEAN CELL HGB (test code = MCH) 31.7 pg 27.6-33.2 N MEAN CELL HGB CONCETRATION 33.3 % 32.9-35.5 N (test code = MCHC) RED CELL DISTRIBUTION WIDTH 13.0 % 12.1-15.2 N (test code = RDW) PLATELET COUNT (test code = 89 K/MM3 129-368 L PLT) MEAN PLATELET VOLUME (test code 10.0 fl 7.4-10.4 N = MPV) NEUTROPHIL % (test code = NT%) 72.7 % 43-75 N IMMATURE GRANULOCYTE % (test 0.5 % 0.0-2.0 N code = IG%) LYMPHOCYTE % (test code = LY%) 14.6 % 14-44 N MONOCYTE % (test code = MO%) 11.8 % 4-13 N EOSINOPHIL % (test code = EO%) 0.2 % 0-6 N BASOPHIL % (test code = BA%) 0.2 % 0-2 N NUCLEATED RBC % (test code = 0.0 % 0-1.0 N NRBC%) NEUTROPHIL # (test code = NT#) 9.60 K/mm3 2.0-7.6 H IMMATURE GRANULOCYTE # (test 0.06 x10 3/uL 0-0.03 H code = IG#) LYMPHOCYTE # (test code = LY#) 1.92 K/mm3 1.0-3.8 N MONOCYTE # (test code = MO#) 1.55 K/mm3 0.1-0.8 H EOSINOPHIL # (test code = EO#) 0.02 K/mm3 0.0-0.2 N BASOPHIL # (test code = BA#) 0.03 K/mm3 0.0-0.2 N NUCLEATED RBC # (test code = 0.00 K/mm3 0.0-0.1 N NRBC#) GLUCOSE BEDSIDE [id number] 19:48:00 Test Item Value Reference Range Interpretation Comments GLUCOSE BEDSIDE TESTING (test code 193 MG/DL 60-99 H = GLUBED) GLUCOSE BEDSIDE [id number] 16:43:00 Test Item Value Reference Range Interpretation Comments GLUCOSE BEDSIDE TESTING (test code 103 MG/DL 60-99 H = GLUBED) GLUCOSE BEDSIDE [id number] 15:24:00 Test Item Value Reference Range Interpretation Comments GLUCOSE BEDSIDE TESTING (test code 119 MG/DL 60-99 H = GLUBED) GLUCOSE BEDSIDE [id number] 14:05:00 Test Item Value Reference Range Interpretation Comments GLUCOSE BEDSIDE TESTING (test code 176 MG/DL 60-99 H = GLUBED) GLUCOSE BEDSIDE [id number] 12:55:00 Test Item Value Reference Range Interpretation Comments GLUCOSE BEDSIDE TESTING (test code 195 MG/DL 60-99 H = GLUBED) ARTERIAL BLOOD [id number] 11:56:00 Test Item Value Reference Range Interpretation Comments ARTERIAL BLOOD GAS PH 7.33 mmHg 7.35-7.45 L (test code = PHA) ARTERIAL BLOOD GAS 41.0 mmHg 35.0-45.0 N PCO2 (test code = PCO2A) ARTERIAL BLOOD GAS 203.9 mmol/L 80.0-100.0 H PO2 (test code = PO2A) BICARBONATE TOTAL 21.3 mmol/L 20.0-26.0 N HCO3 (test code = HCO3) BASE EXCESS (test -4.3 mmol/L -3.0-3.0 L code = RIGOBERTO) ABG O2 SATURATION 99.3 % 95.0-100.0 N All critic al values (test code = SATA) report to and readback by RN by [email or web address] at 01/21/2021 5:55: 42 PM ABG DELIVERY (test VENT code = BRENTON) ABG VENT MODE (test A/C code = MODEA) ABG VENT RESP RATE 14.0 /MIN (test code = RRA) ABG TIDAL VOLUME 550.0 ml (test code = TVA) ABG PEEP (test code = 5.0 cmH2O PEEPA) ABG TEMPERATURE (test 37.0 C See_Comment [Auto mated message] code = TEMPA) The system [employer] generated this result transmit quoc reference range : 37. The reference r ana luisa was not used to interpret this result as normal/abnormal . ABG SITE (test code = AL SITEA) ALLENS TEST (test NA CHECK code = ALLENS) FIO2 (test code = 90 % COHBGFFIO2) PaO2/[id number] 11:56:00 Test Item Value Reference Range Interpretation Comments PaO2/FiO2 (test code = [id number]) mm/Hg ARTERIAL BLOOD [id number] 11:56:00 Test Item Value Reference Range Interpretation Comments ARTERIAL BLOOD GAS PH 7.33 mmHg 7.35-7.45 L (test code = PHA) ARTERIAL BLOOD GAS 41.0 mmHg 35.0-45.0 N PCO2 (test code = PCO2A) ARTERIAL BLOOD GAS 203.9 mmol/L 80.0-100.0 H PO2 (test code = PO2A) BICARBONATE TOTAL 21.3 mmol/L 20.0-26.0 N HCO3 (test code = HCO3) BASE EXCESS (test -4.3 mmol/L -3.0-3.0 L code = RIGOBERTO) ABG O2 SATURATION 99.3 % 95.0-100.0 N All critic al values (test code = SATA) report to and readback by RN by [email or web address] at 01/21/2021 5:55: 42 PM ABG DELIVERY (test VENT code = BRENTON) ABG VENT MODE (test A/C code = MODEA) ABG VENT RESP RATE 14.0 /MIN (test code = RRA) ABG TIDAL VOLUME 550.0 ml (test code = TVA) ABG PEEP (test code = 5.0 cmH2O PEEPA) ABG TEMPERATURE (test 37.0 C See_Comment [Auto mated message] code = TEMPA) The system [employer] generated this result transmit quoc reference range : 37. The reference r ana luisa was not used to interpret this result as normal/abnormal . ABG SITE (test code = AL SITEA) ALLENS TEST (test NA CHECK code = ALLENS) FIO2 (test code = 90 % COHBGFFIO2) PaO2/[id number] 11:56:00 Test Item Value Reference Range Interpretation Comments PaO2/FiO2 (test code = [id number]) 226.55 mm/Hg GLUCOSE BEDSIDE [id number] 11:43:00 Test Item Value Reference Range Interpretation Comments GLUCOSE BEDSIDE TESTING (test code 211 MG/DL 60-99 H = GLUBED) GLUCOSE BEDSIDE [id number] 10:36:00 Test Item Value Reference Range Interpretation Comments GLUCOSE BEDSIDE TESTING (test code 243 MG/DL 60-99 H = GLUBED) GLUCOSE BEDSIDE [id number] 09:11:00 Test Item Value Reference Range Interpretation Comments GLUCOSE BEDSIDE TESTING (test code 292 MG/DL 60-99 H = GLUBED) GLUCOSE BEDSIDE [id number] 07:54:00 Test Item Value Reference Range Interpretation Comments GLUCOSE BEDSIDE TESTING (test code 238 MG/DL 60-99 H = GLUBED) - XR CHEST [id number] 06:26:00 [facility] 1960 Sex: M Patient Name: JUSTICE MARS Unit No: [id number] EXAMS: CPT CODE: [id number] XR CHEST 1V 24299 EXAM: CHEST ONE VIEW INDICATION: S/P CABG LOCATION: B2 COMPARISON: January 21, 2021 TECHNIQUE: AP view of the chest FINDINGS: The endotracheal tube and enteric tube have been removed. The right central venous catheter and right Repton-Jaimie catheter unchanged in position. The heart size is normal. There is evidence of prior thoracic surgery. There are mild congestive changes bilaterally. No pneumothorax or pleural effusion is identified. The osseous structures are normal. IMPRESSION: Stable postoperative chest. Mild parenchymal opacities throughout both lungs. at 0626 Reported and signed by: Omayra Zelaya MD CC: Isabel Fernandez MD Technologist: Patric Kruse, RT(R) Transcrpt Date/Tm/Trnsp: 01/22/2021 (625) 16 Orig Print D/T: S: 01/22/2021 (628) [facility] NAME: JUSTICE MARS [id number] PHYS: [place] [address] : 1960 AGE: 60 SEX: M LOC: UNK PHONE #: [phone] EXAM DATE: 01/22/2021 STATUS: DIS IN FAX #: [phone] RADIOLOGY NO: PAGE 1Signed Report- XR CHEST [id number] 06:26:00 [facility] : 1960 Sex: M Patient Name: JUSTICE MARS Unit No: [id number] EXAMS: CPT CODE: [id number] XR CHEST 1V [id number] EXAM: CHEST ONE VIEW INDICATION: S/P CABG LOCATION: B2 COMPARISON: January 21, 2021 TECHNIQUE: AP view of the chest FINDINGS: The endotracheal tube and enteric tube have been removed. The right central venous catheter and right Repton-Jaimie catheter unchanged in position. The heart size is normal. There is evidence of prior thoracic surgery. There are mild congestive changes bilaterally. No pneumothorax or pleural effusion is identified. The osseous structures are normal. IMPRESSION: Stable postoperative chest. Mild parenchymal opacities throughout both lungs. at 0626 Reported and signed by: Omayra Zelaya MD CC: Isabel Fernandez MD Technologist: Patric Kruse, RT(R) Transcrpt Date/Tm/Trnsp: 01/22/2021 (625) 16 Orig Print D/T: S: 01/22/2021 (628) [facility] NAME: JUSTICE MARS [id number] PHYS: [place] [address] : 1960 AGE: 60 SEX: M LOC: [id number] PHONE #: [phone] EXAM DATE: 01/22/2021 STATUS: ADM IN FAX #: [phone] RADIOLOGY NO: PAGE 1Signed ReportGLUCOSE BEDSIDE [id number] 05:56:00 Test Item Value Reference Range Interpretation Comments GLUCOSE BEDSIDE TESTING (test code 212 MG/DL 60-99 H = GLUBED) GLUCOSE BEDSIDE [id number] 05:05:00 Test Item Value Reference Range Interpretation Comments GLUCOSE BEDSIDE TESTING (test code 164 MG/DL 60-99 H = GLUBED) CBC W/AUTO [id number] 05:04:00 Test Item Value Reference Range Interpretation Comments WHITE BLOOD CELL (test code = 16.6 K/MM3 3.8-9.8 H WBC) RED BLOOD CELL (test code = 4.10 M/MM3 3.95-5.67 N RBC) HEMOGLOBIN (test code = HGB) 12.9 G/DL 12.4-16.7 N HEMATOCRIT (test code = HCT) 39.1 % 35.9-49.5 N MEAN CELL VOLUME (test code = 95 fL 81.7-96.1 N MCV) MEAN CELL HGB (test code = MCH) 31.5 pg 27.6-33.2 N MEAN CELL HGB CONCETRATION 33.0 % 32.9-35.5 N (test code = MCHC) RED CELL DISTRIBUTION WIDTH 13.0 % 12.1-15.2 N (test code = RDW) PLATELET COUNT (test code = 136 K/MM3 129-368 N PLT) MEAN PLATELET VOLUME (test code 9.7 fl 7.4-10.4 N = MPV) NEUTROPHIL % (test code = NT%) 82.2 % 43-75 H IMMATURE GRANULOCYTE % (test 0.5 % 0.0-2.0 N code = IG%) LYMPHOCYTE % (test code = LY%) 4.6 % 14-44 L MONOCYTE % (test code = MO%) 12.5 % 4-13 N EOSINOPHIL % (test code = EO%) 0.0 % 0-6 N BASOPHIL % (test code = BA%) 0.2 % 0-2 N NUCLEATED RBC % (test code = 0.0 % 0-1.0 N NRBC%) NEUTROPHIL # (test code = NT#) 13.60 K/mm3 2.0-7.6 H IMMATURE GRANULOCYTE # (test 0.09 x10 3/uL 0-0.03 H code = IG#) LYMPHOCYTE # (test code = LY#) 0.76 K/mm3 1.0-3.8 L MONOCYTE # (test code = MO#) 2.07 K/mm3 0.1-0.8 H EOSINOPHIL # (test code = EO#) 0.00 K/mm3 0.0-0.2 N BASOPHIL # (test code = BA#) 0.04 K/mm3 0.0-0.2 N NUCLEATED RBC # (test code = 0.00 K/mm3 0.0-0.1 N NRBC#) BASIC METABOLIC [id number] 05:02:00 Test Item Value Reference Range Interpretation Comments SODIUM (test code = 141 MMOL/L 137-145 N NA) POTASSIUM (test code = 4.0 MMOL/L 3.5-5.1 N K) CHLORIDE (test code = 106 MMOL/L 98-107 N CL) CARBON DIOXIDE (test 26 MMOL/L 22-30 N code = CO2) ANION GAP (test code = 13 MMOL/L 14-24 L GAP) GLUCOSE (test code = 209 MG/DL 74-106 H GLU) BLOOD UREA NITROGEN 16 MG/DL 9-20 N (test code = BUN) GLOMERULAR FILTRATION > 60 Report ing units: RATE (test code = GFR) ml/mi n/1.73 m2 (Modified MDRD Formula)Referen ce Range: > or = 6 0 ml/min/1.73 m2 CREATININE (test code 0.90 MG/DL 0.66-1.25 = CREAT) CALCIUM (test code = 8.5 MG/DL 8.4-10.2 N CA) GLUCOSE BEDSIDE [id number] 03:14:00 Test Item Value Reference Range Interpretation Comments GLUCOSE BEDSIDE TESTING (test code 218 MG/DL 60-99 H = GLUBED) GLUCOSE BEDSIDE [id number] 02:04:00 Test Item Value Reference Range Interpretation Comments GLUCOSE BEDSIDE TESTING (test code 217 MG/DL 60-99 H = GLUBED) GLUCOSE BEDSIDE [id number] 01:45:00 Test Item Value Reference Range Interpretation Comments GLUCOSE BEDSIDE TESTING (test code 220 MG/DL 60-99 H = GLUBED) GLUCOSE BEDSIDE [id number] 01:12:00 Test Item Value Reference Range Interpretation Comments GLUCOSE BEDSIDE TESTING (test code 223 MG/DL 60-99 H = GLUBED) GLUCOSE BEDSIDE [id number] 23:07:00 Test Item Value Reference Range Interpretation Comments GLUCOSE BEDSIDE TESTING (test code 232 MG/DL 60-99 H = GLUBED) GLUCOSE BEDSIDE [id number] 21:51:00 Test Item Value Reference Range Interpretation Comments GLUCOSE BEDSIDE TESTING (test code 254 MG/DL 60-99 H = GLUBED) BASIC METABOLIC [id number] 21:46:00 Test Item Value Reference Range Interpretation Comments SODIUM (test code = 144 MMOL/L 137-145 N NA) POTASSIUM (test code = 3.8 MMOL/L 3.5-5.1 N K) CHLORIDE (test code = 107 MMOL/L 98-107 N CL) CARBON DIOXIDE (test 22 MMOL/L 22-30 N code = CO2) ANION GAP (test code = 19 MMOL/L 14-24 N GAP) GLUCOSE (test code = 281 MG/DL 74-106 H GLU) BLOOD UREA NITROGEN 16 MG/DL 9-20 N (test code = BUN) GLOMERULAR FILTRATION > 60 Report ing units: RATE (test code = GFR) ml/mi n/1.73 m2 (Modified MDRD Formula)Referen ce Range: > or = 6 0 ml/min/1.73 m2 CREATININE (test code 1.10 MG/DL 0.66-1.25 = CREAT) CALCIUM (test code = 9.0 MG/DL 8.4-10.2 N CA) UNABLE TO DRAW BLOOD, REASON: CBNNOTIFIED PATIENT CARE STAFF: [facility] 01/21/21 AT 1759 BY Gabriella Leonard AnPROTHROMBIN [id number] 21:40:00 Test Item Value Reference Range Interpretation Comments PROTHROMBIN TIME PATIENT 13.4 9.5-12.7 H (test code = PTP) INTERNATIONAL NORMAL RATIO 1.2 0.86-1.14 H T he INR is to be used (test code = INR) only for m onitoring oral anticoagulantth erapy. INDICATION INR VALUE ------- ------- -----1. Prophylaxis, d eep venous thrombos is, including high risk surgery. 2.0 - 3.0 2. Prophylaxis, de ep venous thrombos is, hip surgery, tr eatment for deep venous thrombosis or pulmonary preve ntion of systemic embolism in pat ients with valvula r heart disease, atrial fibrillation, tissue heart va lve, or acute myocardia l infarction. 2.0 - 3.0 3. Mechanical pros thesis heart valves, recurrent syste keshav embolism. 3.0 - 4.5 UNABLE TO DRAW BLOOD, REASON: CBNNOTIFIED PATIENT CARE STAFF: [facility] 01/21/21 AT 175 BY Gabriella Leonard AnPTT [id number] 21:40:00 Test Item Value Reference Range Interpretation Comments PTT ACTIVATED (test code = APTT) 26.1 SECONDS 25.1-36.5 N UNABLE TO DRAW BLOOD, REASON: CBNNOTIFIED PATIENT CARE STAFF: [facility] 01/21/21 AT 175 BY Gabriella Leonard [id number] 21:38:00 Test Item Value Reference Range Interpretation Comments MAGNESIUM (test code = MAG) 1.5 MG/DL 1.6-2.3 L UNABLE TO DRAW BLOOD, REASON: CBNNOTIFIED PATIENT CARE STAFF: [facility] 01/21/21 AT 175 BY Gabriella Leonard AnCBC W/AUTO [id number] 21:37:00 Test Item Value Reference Range Interpretation Comments WHITE BLOOD CELL (test code = 22.6 K/MM3 3.8-9.8 H WBC) RED BLOOD CELL (test code = 4.61 M/MM3 3.95-5.67 N RBC) HEMOGLOBIN (test code = HGB) 14.4 G/DL 12.4-16.7 N HEMATOCRIT (test code = HCT) 43.2 % 35.9-49.5 MEAN CELL VOLUME (test code = 94 fL 81.7-96.1 N MCV) MEAN CELL HGB (test code = MCH) 31.2 pg 27.6-33.2 N MEAN CELL HGB CONCETRATION 33.3 % 32.9-35.5 N (test code = MCHC) RED CELL DISTRIBUTION WIDTH 12.9 % 12.1-15.2 N (test code = RDW) PLATELET COUNT (test code = 151 K/MM3 129-368 N PLT) MEAN PLATELET VOLUME (test code 9.1 fl 7.4-10.4 N = MPV) NEUTROPHIL % (test code = NT%) 83.5 % 43-75 H IMMATURE GRANULOCYTE % (test 0.8 % 0.0-2.0 N code = IG%) LYMPHOCYTE % (test code = LY%) 8.6 % 14-44 L MONOCYTE % (test code = MO%) 6.9 % 4-13 N EOSINOPHIL % (test code = EO%) 0.0 % 0-6 N BASOPHIL % (test code = BA%) 0.2 % 0-2 N NUCLEATED RBC % (test code = 0.0 % 0-1.0 N NRBC%) NEUTROPHIL # (test code = NT#) 18.90 K/mm3 2.0-7.6 H IMMATURE GRANULOCYTE # (test 0.18 x10 3/uL 0-0.03 H code = IG#) LYMPHOCYTE # (test code = LY#) 1.94 K/mm3 1.0-3.8 N MONOCYTE # (test code = MO#) 1.56 K/mm3 0.1-0.8 H EOSINOPHIL # (test code = EO#) 0.00 K/mm3 0.0-0.2 N BASOPHIL # (test code = BA#) 0.04 K/mm3 0.0-0.2 N NUCLEATED RBC # (test code = 0.00 K/mm3 0.0-0.1 N NRBC#) UNABLE TO DRAW BLOOD, REASON: CBNNOTIFIED PATIENT CARE STAFF: [facility] 01/21/21 AT 1759 BY Gabriella LeonardLUCOSE BEDSIDE [id number] 21:05:00 Test Item Value Reference Range Interpretation Comments GLUCOSE BEDSIDE TESTING (test code 227 MG/DL 60-99 H = GLUBED) GLUCOSE BEDSIDE [id number] 19:54:00 Test Item Value Reference Range Interpretation Comments GLUCOSE BEDSIDE TESTING (test code 284 MG/DL 60-99 H = GLUBED) GLUCOSE BEDSIDE [id number] 18:59:00 Test Item Value Reference Range Interpretation Comments GLUCOSE BEDSIDE TESTING (test code 195 MG/DL 60-99 H = GLUBED) - XR CHEST [id number] 18:08:00 [facility] 1960 Sex: M Patient Name: JUSTICE MARS Unit No: [id number] EXAMS: CPT CODE: [id number] XR CHEST 1V 99850 LOCATION: Q15 HISTORY: 60-year-old male, status post CABG. COMMENT: A frontal chest radiograph was obtained at the bedside at 5:47 p.m., and compared to study obtained January 20, 2021. Since the prior study the patient has undergone a CABG procedure. Mild prominence of the central vasculature is noted. Lung periphery is clear no pleural effusions are seen. The cardiac silhouette is unremarkable. ET tube is above the isidro and a nasogastric tube is in the stomach. The right IJ Repton-Jaimie catheter tip is in the right main pulmonary arterial branch. A right squamous central line seen with the tip in the superior vena cava. Mediastinal drains are noted. IMPRESSION: Satisfactory postoperative appearance of the chest. at 1808 Reported and signed by: Johnny Joshi M.D. CC: Isabel Fernandez MD Technologist: Annamarie Puentes RT(R) Transcrpt Date/Tm/Trnsp: 01/21/2021 (1807) [id number] Orig Print D/T:S: 01/21/2021 (1810) [facility] NAME: JUSTICE MARS [id number] PHYS: [place] [address] : 1960 AGE: 60 SEX: M LOC: UNK PHONE #: [phone] EXAM DATE: 01/21/2021 STATUS: DIS IN FAX #: [phone] RADIOLOGY NO: PAGE 1 Signed Report- XR CHEST [id number] 18:08:00 [facility] 1960 Sex: M Patient Name: JUSTICE MARS Unit No: [id number] EXAMS: CPT CODE: [id number] XR CHEST 1V 62515 LOCATION: Q15 HISTORY: 60-year-old male, status post CABG. COMMENT: A frontal chest radiograph was obtained at the bedside at 5:47 p.m., and compared to study obtained January 20, 2021. Since the prior study the patient has undergone a CABG procedure. Mild prominence of the central vasculature is noted. Lung periphery is clear no pleural effusions are seen. The cardiac silhouette is unremarkable. ET tube is above the isirdo and a nasogastric tube is in the stomach. The right IJ Repton-Jaimie catheter tip is in the right main pulmonary arterial branch. A right squamous central line seen with the tip in the superior vena cava. Mediastinal drains are noted. IMPRESSION: Satisfactory postoperative appearance of the chest. at 1808 Reported and signed by: Johnny Joshi M.D. CC: Isabel Fernandez MD Technologist: Annamarie Puentes RT(R) Transcrpt Date/Tm/Trnsp: 01/21/2021 (973) [id number] Orig Print D/T:S: 01/21/2021 (1810) [facility] NAME: JUSTICE MARS [id number] [address] PHYS: [place] [address] : 1960 AGE: 60 SEX: M LOC: [id number].[id number] A PHONE #: [phone] EXAM DATE: 01/21/2021 STATUS: ADM IN FAX #: [phone] RADIOLOGY NO: PAGE 1 Signed ReportPROTHROMBIN [id number] 17:46:00 Test Item Value Reference Range Interpretation Comments PROTHROMBIN TIME PATIENT 16.8 9.5-12.7 H (test code = PTP) INTERNATIONAL NORMAL RATIO 1.5 0.86-1.14 H T he INR is to be used (test code = INR) only for m onitoring oral anticoagulantth erapy. INDICATION INR VALUE ------- ------- -----1. Prophylaxis, d eep venous thrombos is, including high risk surgery. 2.0 - 3.0 2. Prophylaxis, de ep venous thrombos is, hip surgery, tr eatment for deep venous thrombosis or pulmonary preve ntion of systemic embolism in pat ients with valvula r heart disease, atrial fibrillation, tissue heart va lve, or acute myocardia l infarction. 2.0 - 3.0 3. Mechanical pros thesis heart valves, recurrent syste keshav embolism. 3.0 - 4.5 PTT [id number] 17:46:00 Test Item Value Reference Range Interpretation Comments PTT ACTIVATED (test code = APTT) 25.8 SECONDS 25.1-36.5 N POC ARTERIAL BLOOD [id number] 17:38:00 Test Item Value Reference Range Interpretation Comments POC ARTERIAL BLOOD GAS PH 7.439 7.35-7.45 N (test code = POCPHA) POC ARTERIAL BLOOD GAS PCO2 34.2 mmHg 35.0-45.0 L (test code = [id number]) POC ARTERIAL BLOOD GAS PO2 215.8 75.0-100.0 HH (test code = [id number]) POC HCO3 ARTERIAL (test 23.2 MMOL/L 20.0-26.0 N code = [id number]) POC BASE EXCESS (test code -0.6 MMOL/L -3.0-3.0 N = POCBEA) POC O2 SATURATION (test 99.8 % 92.0-98.5 H code = POCO2S) FIO2 (test code = FIO2A) 80 % 21-100 N PaO2/FiO2 (test code = 269.75 mm/Hg [id number]) SODIUM (test code = NA/ABG) 146 MMOL/L 135-141 H POTASSIUM (test code = 3.4 MMOL/L 3.7-4.7 L K/ABG) CHLORIDE (test code = 108 MEQ/L CL/ABG) POC IONIZED CALCIUM (test 1.04 MMOL/L 1.13-1.32 L code = POCCA) POC GLUCOSE (test code = 183 MG/DL 60-99 H POCGLU) POC SAMPLE SOURCE (test Arterial Descript Specimen code = POCSAMPLE) LACTIC ACID POC (test code 4.94 mmol/L 0.7-2.0 HH = LACTP) BASIC METABOLIC [id number] 17:37:00 Test Item Value Reference Range Interpretation Comments SODIUM (test code = 137 MMOL/L 137-145 N NA) POTASSIUM (test code = 3.5 MMOL/L 3.5-5.1 N K) CHLORIDE (test code = 110 MMOL/L 98-107 H CL) CARBON DIOXIDE (test 19 MMOL/L 22-30 L code = CO2) ANION GAP (test code = 12 MMOL/L 14-24 L GAP) GLUCOSE (test code = 183 MG/DL 74-106 H GLU) BLOOD UREA NITROGEN 16 MG/DL 9-20 N (test code = BUN) GLOMERULAR FILTRATION > 60 Report ing units: RATE (test code = GFR) ml/mi n/1.73 m2 (Modified MDRD Formula)Referen ce Range: > or = 6 0 ml/min/1.73 m2 CREATININE (test code 0.90 MG/DL 0.66-1.25 N = CREAT) CALCIUM (test code = 7.9 MG/DL 8.4-10.2 L CA) CBC W/AUTO [id number] 17:29:00 Test Item Value Reference Range Interpretation Comments WHITE BLOOD CELL (test code = 20.0 K/MM3 3.8-9.8 H WBC) RED BLOOD CELL (test code = 4.09 M/MM3 3.95-5.67 RBC) HEMOGLOBIN (test code = HGB) 12.9 G/DL 12.4-16.7 HEMATOCRIT (test code = HCT) 38.7 % 35.9-49.5 MEAN CELL VOLUME (test code = 95 fL 81.7-96.1 N MCV) MEAN CELL HGB (test code = MCH) 31.5 pg 27.6-33.2 N MEAN CELL HGB CONCETRATION 33.3 % 32.9-35.5 N (test code = MCHC) RED CELL DISTRIBUTION WIDTH 12.6 % 12.1-15.2 N (test code = RDW) PLATELET COUNT (test code = 134 K/MM3 129-368 PLT) MEAN PLATELET VOLUME (test code 9.7 fl 7.4-10.4 N = MPV) NEUTROPHIL % (test code = NT%) 67.9 % 43-75 N IMMATURE GRANULOCYTE % (test 0.6 % 0.0-2.0 N code = IG%) LYMPHOCYTE % (test code = LY%) 23.9 % 14-44 N MONOCYTE % (test code = MO%) 6.7 % 4-13 N EOSINOPHIL % (test code = EO%) 0.7 % 0-6 N BASOPHIL % (test code = BA%) 0.2 % 0-2 N NUCLEATED RBC % (test code = 0.0 % 0-1.0 N NRBC%) NEUTROPHIL # (test code = NT#) 13.57 K/mm3 2.0-7.6 H IMMATURE GRANULOCYTE # (test 0.11 x10 3/uL 0-0.03 H code = IG#) LYMPHOCYTE # (test code = LY#) 4.78 K/mm3 1.0-3.8 H MONOCYTE # (test code = MO#) 1.33 K/mm3 0.1-0.8 H EOSINOPHIL # (test code = EO#) 0.14 K/mm3 0.0-0.2 N BASOPHIL # (test code = BA#) 0.03 K/mm3 0.0-0.2 N NUCLEATED RBC # (test code = 0.00 K/mm3 0.0-0.1 N NRBC#) POC ARTERIAL BLOOD [id number] 17:04:00 Test Item Value Reference Range Interpretation Comments POC ARTERIAL BLOOD GAS PH 7.300 7.35-7.45 L (test code = POCPHA) POC ARTERIAL BLOOD GAS PCO2 40.6 mmHg 35.0-45.0 N (test code = [id number]) POC ARTERIAL BLOOD GAS PO2 188.1 75.0-100.0 H (test code = AUFMH9D) POC HCO3 ARTERIAL (test 20.0 MMOL/L 20.0-26.0 N code = [id number]) POC BASE EXCESS (test code -6.1 MMOL/L -3.0-3.0 L = POCBEA) POC O2 SATURATION (test 99.5 % 92.0-98.5 H code = POCO2S) FIO2 (test code = FIO2A) 80 % 21-100 PaO2/FiO2 (test code = 235.12 mm/Hg [id number]) SODIUM (test code = NA/ABG) 143 MMOL/L 135-141 H POTASSIUM (test code = 3.4 MMOL/L 3.7-4.7 L K/ABG) CHLORIDE (test code = 107 MEQ/L CL/ABG) POC IONIZED CALCIUM (test 0.52 MMOL/L 1.13-1.32 LL code = POCCA) POC GLUCOSE (test code = 186 MG/DL 60-99 H POCGLU) POC SAMPLE SOURCE (test Arterial Descript Specimen code = POCSAMPLE) LACTIC ACID POC (test code 3.44 mmol/L 0.7-2.0 HH = LACTP) POC ARTERIAL BLOOD [id number] 16:07:00 Test Item Value Reference Range Interpretation Comments POC ARTERIAL BLOOD GAS PH 7.302 7.35-7.45 L (test code = POCPHA) POC ARTERIAL BLOOD GAS PCO2 50.0 mmHg 35.0-45.0 H (test code = FRIEKW1K) POC ARTERIAL BLOOD GAS PO2 370.8 75.0-100.0 HH (test code = ADXTL2B) POC HCO3 ARTERIAL (test 24.7 MMOL/L 20.0-26.0 N code = AAOYAT1Q) POC BASE EXCESS (test code -2.0 MMOL/L -3.0-3.0 N = POCBEA) POC O2 SATURATION (test 99.9 % 92.0-98.5 H code = POCO2S) FIO2 (test code = FIO2A) 90 % 21-100 N PaO2/FiO2 (test code = 412.00 mm/Hg [id number]) SODIUM (test code = NA/ABG) 139 MMOL/L 135-141 N POTASSIUM (test code = 5.2 MMOL/L 3.7-4.7 H K/ABG) CHLORIDE (test code = 107 MEQ/L CL/ABG) POC IONIZED CALCIUM (test 1.02 MMOL/L 1.13-1.32 L code = POCCA) POC GLUCOSE (test code = 186 MG/DL 60-99 H POCGLU) POC SAMPLE SOURCE (test Arterial Descript Specimen code = POCSAMPLE) LACTIC ACID POC (test code 1.93 mmol/L 0.7-2.0 N = LACTP) [id number] 16:01:00 Test Item Value Reference Range Interpretation Comments POTASSIUM (test code = K) 5.9 MMOL/L 3.5-5.1 H [id number] 16:01:00 Test Item Value Reference Range Interpretation Comments GLUCOSE (test code = GLU) 165 MG/DL 74-106 H POC ARTERIAL BLOOD [id number] 15:47:00 Test Item Value Reference Range Interpretation Comments POC ARTERIAL BLOOD GAS PH 7.367 7.35-7.45 N (test code = POCPHA) POC ARTERIAL BLOOD GAS PCO2 45.2 mmHg 35.0-45.0 H (test code = EPZCWU0H) POC ARTERIAL BLOOD GAS PO2 398.7 75.0-100.0 HH (test code = MTSZC4F) POC HCO3 ARTERIAL (test 25.9 MMOL/L 20.0-26.0 N code = PHXFDV0E) POC BASE EXCESS (test code 0.3 MMOL/L -3.0-3.0 N = POCBEA) POC O2 SATURATION (test 100.0 % 92.0-98.5 H code = POCO2S) FIO2 (test code = FIO2A) 90 % 21-100 N PaO2/FiO2 (test code = 443.00 mm/Hg [id number]) SODIUM (test code = NA/ABG) 138 MMOL/L 135-141 N POTASSIUM (test code = 6.0 MMOL/L 3.7-4.7 HH K/ABG) CHLORIDE (test code = 106 MEQ/L CL/ABG) POC IONIZED CALCIUM (test 1.00 MMOL/L 1.13-1.32 L code = POCCA) POC GLUCOSE (test code = 172 MG/DL 60-99 H POCGLU) POC SAMPLE SOURCE (test Arterial Descript Specimen code = POCSAMPLE) LACTIC ACID POC (test code 1.72 mmol/L 0.7-2.0 N = LACTP) HGB [id number] 15:43:00 Test Item Value Reference Range Interpretation Comments HEMOGLOBIN (test code = HGB) 10.7 G/DL 12.4-16.7 L HEMATOCRIT (test code = HCT) 31.6 % 35.9-49.5 L POC ARTERIAL BLOOD [id number] 15:18:00 Test Item Value Reference Range Interpretation Comments POC ARTERIAL BLOOD GAS PH 7.405 7.35-7.45 N (test code = POCPHA) POC ARTERIAL BLOOD GAS PCO2 38.9 mmHg 35.0-45.0 N (test code = WOEKTO2Q) POC ARTERIAL BLOOD GAS PO2 362.3 75.0-100.0 HH (test code = JUMNK2L) POC HCO3 ARTERIAL (test 24.4 MMOL/L 20.0-26.0 N code = TCSFSN4U) POC BASE EXCESS (test code -0.3 MMOL/L -3.0-3.0 N = POCBEA) POC O2 SATURATION (test 100.0 % 92.0-98.5 H code = POCO2S) PaO2/FiO2 (test code = mm/Hg [id number]) SODIUM (test code = NA/ABG) 136 MMOL/L 135-141 N POTASSIUM (test code = 6.2 MMOL/L 3.7-4.7 HH K/ABG) CHLORIDE (test code = 102 MEQ/L CL/ABG) POC IONIZED CALCIUM (test 1.04 MMOL/L 1.13-1.32 L code = POCCA) POC GLUCOSE (test code = 202 MG/DL 60-99 H POCGLU) POC SAMPLE SOURCE (test Arterial Descript Specimen code = POCSAMPLE) LACTIC ACID POC (test code 1.60 mmol/L 0.7-2.0 N = LACTP) [id number] 15:18:00 Test Item Value Reference Range Interpretation Comments POTASSIUM (test code = K) 5.9 MMOL/L 3.5-5.1 H PLEASE CALL RESULTS TO PHONE #: [id number] STAT [id number] 15:18:00 Test Item Value Reference Range Interpretation Comments GLUCOSE (test code = GLU) 187 MG/DL 74-106 H PLEASE CALL RESULTS TO PHONE #: [id number] STAT HGB [id number] 15:01:00 Test Item Value Reference Range Interpretation Comments HEMOGLOBIN (test code = HGB) 10.7 G/DL 12.4-16.7 L HEMATOCRIT (test code = HCT) 32.3 % 35.9-49.5 L PLEASE CALL RESULTS TO PHONE #: [id number] STAT POC ARTERIAL BLOOD GAS 2021-01-21 14:40:00 Test Item Value Reference Range Interpretation Comments POC ARTERIAL BLOOD GAS PH 7.335 7.35-7.45 L (test code = POCPHA) POC ARTERIAL BLOOD GAS PCO2 44.9 mmHg 35.0-45.0 N (test code = HBYZKW2T) POC ARTERIAL BLOOD GAS PO2 626.8 75.0-100.0 HH (test code = UTAGG5H) POC HCO3 ARTERIAL (test 24.0 MMOL/L 20.0-26.0 N code = FRJCWY0O) POC BASE EXCESS (test code -1.9 MMOL/L -3.0-3.0 N = POCBEA) POC O2 SATURATION (test 100.0 % 92.0-98.5 H code = POCO2S) PaO2/FiO2 (test code = mm/Hg QIZ1YFH0) SODIUM (test code = NA/ABG) 133 MMOL/L 135-141 L POTASSIUM (test code = 6.4 MMOL/L 3.7-4.7 HH K/ABG) CHLORIDE (test code = 100 MEQ/L CL/ABG) POC IONIZED CALCIUM (test 0.97 MMOL/L 1.13-1.32 L code = POCCA) POC GLUCOSE (test code = 196 MG/DL 60-99 H POCGLU) POC SAMPLE SOURCE (test Arterial Descript Specimen code = POCSAMPLE) LACTIC ACID POC (test code 1.41 mmol/L 0.7-2.0 N = LACTP) POC ARTERIAL BLOOD [id number] 13:35:00 Test Item Value Reference Range Interpretation Comments POC ARTERIAL BLOOD GAS PH 7.346 7.35-7.45 L (test code = POCPHA) POC ARTERIAL BLOOD GAS PCO2 46.2 mmHg 35.0-45.0 H (test code = [id number]) POC ARTERIAL BLOOD GAS PO2 377.8 75.0-100.0 HH (test code = [id number]) POC HCO3 ARTERIAL (test 25.3 MMOL/L 20.0-26.0 N code = [id number]) POC BASE EXCESS (test code -0.9 MMOL/L -3.0-3.0 N = POCBEA) POC O2 SATURATION (test 99.9 % 92.0-98.5 H code = POCO2S) PaO2/FiO2 (test code = mm/Hg [id number]) SODIUM (test code = NA/ABG) 135 MMOL/L 135-141 N POTASSIUM (test code = 6.2 MMOL/L 3.7-4.7 HH K/ABG) CHLORIDE (test code = 103 MEQ/L CL/ABG) POC IONIZED CALCIUM (test 1.12 MMOL/L 1.13-1.32 L code = POCCA) POC GLUCOSE (test code = 239 MG/DL 60-99 H POCGLU) POC SAMPLE SOURCE (test Arterial Descript Specimen code = POCSAMPLE) LACTIC ACID POC (test code 1.21 mmol/L 0.7-2.0 N = LACTP) BASIC METABOLIC [id number] 12:48:00 Test Item Value Reference Range Interpretation Comments SODIUM (test code = 137 MMOL/L 137-145 N NA) POTASSIUM (test code = 5.2 MMOL/L 3.5-5.1 H K) CHLORIDE (test code = 104 MMOL/L 98-107 N CL) CARBON DIOXIDE (test 24 MMOL/L 22-30 N code = CO2) GLUCOSE (test code = 169 MG/DL 74-106 H GLU) BLOOD UREA NITROGEN 18 MG/DL 9-20 N (test code = BUN) GLOMERULAR FILTRATION > 60 Report ing units: RATE (test code = GFR) ml/mi n/1.73 m2 (Modified MDRD Formula)Referen ce Range: > or = 6 0 ml/min/1.73 m2 CREATININE (test code 0.90 MG/DL 0.66-1.25 N = CREAT) CALCIUM (test code = 9.6 MG/DL 8.4-10.2 N CA) CBC W/AUTO [id number] 12:41:00 Test Item Value Reference Range Interpretation Comments WHITE BLOOD CELL (test code = 5.1 K/MM3 3.8-9.8 N WBC) RED BLOOD CELL (test code = 5.29 M/MM3 3.95-5.67 N RBC) HEMOGLOBIN (test code = HGB) 16.6 G/DL 12.4-16.7 N HEMATOCRIT (test code = HCT) 49.2 % 35.9-49.5 N MEAN CELL VOLUME (test code = 93 fL 81.7-96.1 N MCV) MEAN CELL HGB (test code = MCH) 31.4 pg 27.6-33.2 N MEAN CELL HGB CONCETRATION 33.7 % 32.9-35.5 N (test code = MCHC) RED CELL DISTRIBUTION WIDTH 12.7 % 12.1-15.2 N (test code = RDW) PLATELET COUNT (test code = 240 K/MM3 129-368 N PLT) MEAN PLATELET VOLUME (test code 9.5 fl 7.4-10.4 N = MPV) NEUTROPHIL % (test code = NT%) 46.3 % 43-75 N IMMATURE GRANULOCYTE % (test 0.4 % 0.0-2.0 N code = IG%) LYMPHOCYTE % (test code = LY%) 38.7 % 14-44 N MONOCYTE % (test code = MO%) 10.1 % 4-13 N EOSINOPHIL % (test code = EO%) 3.5 % 0-6 N BASOPHIL % (test code = BA%) 1.0 % 0-2 N NUCLEATED RBC % (test code = 0.0 % 0-1.0 N NRBC%) NEUTROPHIL # (test code = NT#) 2.38 K/mm3 2.0-7.6 N IMMATURE GRANULOCYTE # (test 0.02 x10 3/uL 0-0.03 N code = IG#) LYMPHOCYTE # (test code = LY#) 1.99 K/mm3 1.0-3.8 N MONOCYTE # (test code = MO#) 0.52 K/mm3 0.1-0.8 N EOSINOPHIL # (test code = EO#) 0.18 K/mm3 0.0-0.2 N BASOPHIL # (test code = BA#) 0.05 K/mm3 0.0-0.2 N NUCLEATED RBC # (test code = 0.00 K/mm3 0.0-0.1 N NRBC#) CHEMISTRY 8 [id number] 12:02:00 Test Item Value Reference Range Interpretation Comments POC SODIUM (test code 139 MMOL/L 137-144 N = NAP) POC POTASSIUM (test 5.3 MMOL/L 3.1-4.8 H code = KP) POC CHLORIDE (test 100 MMOL/L 97-108 N code = CLP) POC CARBON DIOXIDE 27.0 mmol/L 21-32 N (test code = CO2P) POC ANION GAP (test 17.3 MEQ/L 14-24 N code = GAPP) POC GLUCOSE (test code 183 MG/DL 60-99 H = GLUP) POC BUN (test code = 20 MG/DL 9-21 N BUNP) BEDSIDE CREATININE 1.1 MG/DL 0.6-1.4 N (test code = CREATBED) GLOMERULAR FILTRATION 68 49-113 N Report ing units: RATE POC (test code = ml/min /1.73 m2 GFRBED) (Modified MDRD Formula)Referen ce Range: > or = 6 0 ml/min/1.73 m2 CALCIUM IONIZED (test 1.32 MMOL/L 1.12-1.30 H code = ZOFIA) LACTIC ACID POC (test 1.80 mmol/L 0.7-2.0 N code = LACTP) CHEMISTRY 8 [id number] 11:50:00 Test Item Value Reference Range Interpretation Comments POC HEMOGLOBIN (test G/DL 12.4-16.7 code = HBP) POC SODIUM (test code = MMOL/L 137-144 N NAP) POC POTASSIUM (test code MMOL/L 3.1-4.8 H = KP) POC CHLORIDE (test code MMOL/L 97-108 N = CLP) POC CARBON DIOXIDE (test mmol/L 21-32 code = CO2P) POC GLUCOSE (test code = MG/DL 60-99 H GLUP) POC BUN (test code = MG/DL 9-21 BUNP) BEDSIDE CREATININE (test MG/DL 0.6-1.4 N code = CREATBED) GLOMERULAR FILTRATION 68 49-113 N Report ing units: RATE POC (test code = ml/min /1.73 m2 GFRBED) (Modified MDRD Formula)Referen ce Range: > or = 6 0 ml/min/1.73 m2 CALCIUM IONIZED (test MMOL/L 1.12-1.30 H code = ZOFIA) LACTIC ACID POC (test mmol/L 0.7-2.0 N code = LACTP) CHEMISTRY 8 [id number] 11:50:00 Test Item Value Reference Range Interpretation Comments POC HEMOGLOBIN (test G/DL 12.4-16.7 code = HBP) POC SODIUM (test code 139 MMOL/L 137-144 N = NAP) POC POTASSIUM (test 5.3 MMOL/L 3.1-4.8 H code = KP) POC CHLORIDE (test 100 MMOL/L 97-108 N code = CLP) POC CARBON DIOXIDE 27.0 mmol/L 21-32 N (test code = CO2P) POC ANION GAP (test 17.3 MEQ/L 14-24 N code = GAPP) POC GLUCOSE (test code 183 MG/DL 60-99 H = GLUP) POC BUN (test code = 20 MG/DL 9-21 N BUNP) BEDSIDE CREATININE 1.1 MG/DL 0.6-1.4 N (test code = CREATBED) GLOMERULAR FILTRATION 68 49-113 N Report ing units: RATE POC (test code = ml/min /1.73 m2 GFRBED) (Modified MDRD Formula)Referen ce Range: > or = 6 0 ml/min/1.73 m2 CALCIUM IONIZED (test 1.32 MMOL/L 1.12-1.30 H code = ZOFIA) LACTIC ACID POC (test 1.80 mmol/L 0.7-2.0 N code = LACTP) COVID 19 Asymptomatic IH [id number] 09:21:00 Test Item Value Reference Range Interpretation Comments COVID 19 NEGATIVE Negative "Negative resul ts from Asymptomatic IH AG patients with symptom (test code = onset beyondfiv e days, COVNONPUIAG) should be betzaida quoc as presumptive, andconfirmation with a molecular assay , if necessary forpa tient management may be performed. Nega tive results do notr ule out COVID-19 and sh ould not be used as the sole basisfor treatm ent or patient managem ent decisions, includinginfect ion control decisio ns. Negative result s should beconsidered in the context of a pa tients recent exposure s,history, and the presenc e of clinical signs and symptomsconsist ent with COVID-19.This t est detects both vi able andnon-viable S ARS-CoV and SARS CoV-2. Test performance dep endson the amount of virus (antigen) in the sample." Spec Comments: for surgery todayGLUCOSE BEDSIDE [id number] 07:11:00 Test Item Value Reference Range Interpretation Comments GLUCOSE BEDSIDE TESTING (test code 169 MG/DL 60-99 H = GLUBED) GLUCOSE BEDSIDE [id number] 19:45:00 Test Item Value Reference Range Interpretation Comments GLUCOSE BEDSIDE TESTING (test code 255 MG/DL 60-99 H = GLUBED) GLUCOSE BEDSIDE [id number] 15:35:00 Test Item Value Reference Range Interpretation Comments GLUCOSE BEDSIDE TESTING (test code 115 MG/DL 60-99 H = GLUBED) - XR CHEST [id number] 12:14:00 [facility] 1960 Sex: M Patient Name: JUSTICE MARS Unit No: [id number] EXAMS: CPT CODE: [id number] XR CHEST 1V [id number] EXAMINATION: Frontal chest radiograph INDICATION: Cardiac/heartsurgery COMPARISON: None LOCATION: S17 FINDINGS: Clear lungs. No pleural effusion or pneumothorax. Normal cardiomediastinal silhouette. IMPRESSION: No acute abnormality identified. at 1214 Reported and signed by: Mike Moore MD CC: Sonia FRANCO; Isabel Fernandez MD Technologist: Wicho Marvin, RT(R) Transcrpt Date/Tm/Trnsp: 01/20/2021 (1214) [id number] Orig Print D/T: S: 01/20/2021 (1217) [facility] NAME: JUSTICE MARS [id number] PHYS: [place] [address] : 1960 AGE: 60 SEX: M LOC: UNK PHONE #: [phone] EXAM DATE: 01/20/2021 STATUS: DIS IN FAX #: [phone] RADIOLOGY NO: PAGE 1 Signed Report- XR CHEST [id number] 12:14[facility]00[facility] : 1960 Sex: M Patient Name: JUSTICE MARS Unit No: [id number] EXAMS: CPT CODE: [id number] XR CHEST 1V [id number] EXAMINATION: Frontal chest radiograph INDICATION: Cardiac/heartsurgery COMPARISON: None LOCATION: S17 FINDINGS: Clear lungs. No pleural effusion or pneumothorax. Normal cardiomediastinal silhouette. IMPRESSION: No acute abnormality identified. at 1214 Reported and signed by: Mike Moore MD CC: Sonia FRANCO; Isabel Fernandez MD Technologist: Wicho Marvin, RT(R) Transcrpt Date/Tm/Trnsp: 01/20/2021 (1214) [id number] Orig Print D/T: S: 01/20/2021 (1217) [facility] NAME: JUSTICE MARS [id number] PHYS: [place] [address] : 1960 AGE: 60 SEX: M LOC: Rhonda Lucas PHONE #: [phone] EXAM DATE: 01/20/2021 STATUS: ADM IN FAX #: [phone] RADIOLOGY NO: PAGE 1 Signed ReportHIV 12 AB DIFFERENTIATION 2021-01-20 11:53:00 Test Item Value Reference Range Interpretation Comments HIV 1 2 COMBO AG/AB SCREEN AB/AG NON REACTIVE NONREACTIVE (test code = [id number]) GLUCOSE BEDSIDE [id number] 11:45:00 Test Item Value Reference Range Interpretation Comments GLUCOSE BEDSIDE TESTING (test code 204 MG/DL 60-99 H = GLUBED) GLYCOSYLATED HEMOGLOBIN [id number] 11:41:00 Test Item Value Reference Range Interpretation Comments GLYCOSYLATED 7.2 % 4.8-5.9 H Any condition t hat HEMOGLOBIN (HA1C) shortens e rythocyte (test code = survival or dec reasesmean GLYHGB) erythrocyte age (e.g., recovery from a cute blood loss,hemolytic anemia) will falsely lo wer HGBA1c resultsregardle ss of the method used. H GBA1c results from yovanny mari HbSS, HbCC, and HbSc must be interpreted with cautiongiven th e pathological pr ocesses, including anemia,increase d red cell turnover, trans fusion requirements, thatadversely i mpact HGBA1c as a mar ker of long-term glycemiccontrol . Alternative for ms of testing such as fructosaminesho uld be considered for these patients. MEAN BLOOD GLUCOSE 160 MG/DL 70-110 H (test code = MBG) PROTHROMBIN [id number] 11:28:00 Test Item Value Reference Range Interpretation Comments PROTHROMBIN TIME PATIENT 12.3 9.5-12.7 N (test code = PTP) INTERNATIONAL NORMAL RATIO 1.1 0.86-1.14 N T he INR is to be used (test code = INR) only for m onitoring oral anticoagulantth erapy. INDICATION INR VALUE ------- ------- -----1. Prophylaxis, d eep venous thrombos is, including high risk surgery. 2.0 - 3.0 2. Prophylaxis, de ep venous thrombos is, hip surgery, tr eatment for deep venous thrombosis or pulmonary preve ntion of systemic embolism in pat ients with valvula r heart disease, atrial fibrillation, tissue heart va lve, or acute myocardia l infarction. 2.0 - 3.0 3. Mechanical pros thesis heart valves, recurrent syste keshav embolism. 3.0 - 4.5 PTT [id number] 11:28:00 Test Item Value Reference Range Interpretation Comments PTT ACTIVATED (test code = APTT) 45.7 SECONDS 25.1-36.5 H PLT RESPONSE TO [id number] 11:28:00 Test Item Value Reference Range Interpretation Comments PLT RESPONSE TO 228 PRU 194-418 N P2Y12 Result s PLAVIX (test code = Interpre tation: Test PLAVRES) results are in P2Y12 Reaction Units (PRU). Pre-Drug Refe rence Range is 194-41 8. Pre-drug platel et function estima malgorzata the total possible platelet aggregation independent of P2Y12 inhibitor drugs . Values <194 cou ld be due to low HCT, low platelet count, or p resence of IIb/IIIa inhibi tors. Post-Drug Resu lts: Lower PRU levels are associated with expec quoc antiplatelet ef fect. Values may be b elow the stated refe rence range. Studies show that patients wi th <230 PRU had fewer a dverse events. COMPREHENSIVE METABOLIC [id number] 11:22:00 Test Item Value Reference Range Interpretation Comments SODIUM (test code 136 MMOL/L 137-145 L = NA) POTASSIUM (test 4.4 MMOL/L 3.5-5.1 N code = K) CHLORIDE (test 100 MMOL/L 98-107 N code = CL) CARBON DIOXIDE 25 MMOL/L 22-30 N (test code = CO2) ANION GAP (test 15 MMOL/L 14-24 N code = GAP) GLUCOSE (test 221 MG/DL 74-106 H code = GLU) BLOOD UREA 20 MG/DL 9-20 NITROGEN (test code = BUN) GLOMERULAR > 60 Reporting units : FILTRATION RATE ml/min/1.73 m2 (Modified (test code = GFR) MDRD Formu la)Reference Range: > or = 6 0 ml/min/1.73 m2 CREATININE (test 0.90 MG/DL 0.66-1.25 N code = CREAT) TOTAL PROTEIN 7.1 G/DL 6.2-7.6 N [facility] Clinical Diagnostic (test code = has made us filiberto re of PROT) newinformation regarding the potential i nterference ofEltrombopag (a bone marrow stimulan t used to treatthrombocyt onmenia and aplastic anemia ) with specific assays on the Vitros 5600 of which Total Protein is one of thoseassays per formed in our lab.Interfe rence testing perform ed at Ortho determined that Eltrombopag does interfere with Vitros Total Protein asfollowsEltrom bopag Interference fo r Vitros Product Total Protein:======= Eltrombopag Max Observed A vg. BiasConcentrati on Concentration Concentration== ==== 2.5 mg/dl 6.0 g/dl +0.41 +0.34 3.5 mg/dl 6.0 g/dl +0.50 +0.45 5 mg/dl 6.0 g/dl +0.73 +0.65 2.5 mg/dl 8.0 g/dl +0.44 +0.41 3.5 mg/dl 8.0 g/dl +0.55 +0.52 5 mg/dl 8.0 g/dl +0.86 +0.77 ALBUMIN (test 4.2 G/DL 3.5-5.0 N code = ALB) CALCIUM (test 9.4 MG/DL 8.4-10.2 N code = CA) BILIRUBIN TOTAL 1.1 MG/DL 0.2-1.3 N Eltrombopag Interference (test code = for Vitros Prod uct TBil, BILT) BuBc: Assa y Eltrombopag Analyte/ Max Observed Avg. Bias Concentrati on Concentration Concentration== ====TBil 7mg/dl T Stefan/ 1.2mg/dl +0.23 mg.dl +0.20mg/dlBuBc 3.5mg/dl Bu/0.8mg/dl +0.25mg/dl +0 .24mg/dlBuBc 7 mg/dl Bu/14.2mg/dl +0.38mg/dl +0.25mg/dlBuBc 5mg/dl Bc/0mg/dl +0.25mg/dl +0 .15mg/dlBuBc 3.5mg/dl Bc/2.8mg/dl +0.25mg/dl +0.23mg/dl SGOT/AST (test 62 UNITS/L 17-59 H code = AST) SGPT/ALT (test 49 UNITS/L <50 code = ALT) ALKALINE 84 UNITS/L 38-126 N PHOSPHATASE (test code = ALKP) Specimen comments: if not done in the last 72 hoursLIPID PROFILE (CORONARY RISK)2021-01-20 11:22:00 Test Item Value Reference Range Interpretation Comments TRIGLYCERIDES (test 185 MG/DL TRIGLYCE RIDES code = TRIG) REFERENCE RANGE:Normal: < 150 mg/dLBorderline High: 150-199 mg/dLHi gh: 200-499 mg/dLVe ry High: >=500 mg/ dL CHOLESTEROL (test code 99 MG/DL <200 = CHOL) HDL CHOLESTEROL (test 27 MG/DL 40-59 L code = HDL) LIPOPROTEIN LDL (test 51 MG/DL 0-99 N code = LDL) OPTIMAL........ .<100 mg/dLNEAR OPTIMAL/ABOVE OPTIMAL........ .100-12 9 mg/dL BORDERLINE HIGH.........13 0-159 mg/dL HIGH.........16 0-189 mg/dL VERY HIGH...... ...>/= 190 mg/dL Specimen comments: if not done in the last 72 hoursPROTHROMBIN TIME 2021-01-20 11:18:00 Test Item Value Reference Range Interpretation Comments PROTHROMBIN TIME PATIENT (test code = 9.5-12.7 PTP) INTERNATIONAL NORMAL RATIO (test code = 0.86-1.14 INR) PTT [id number] 11:18:00 Test Item Value Reference Range Interpretation Comments PTT ACTIVATED (test code = APTT) SECONDS 25.1-36.5 PLT RESPONSE TO [id number] 11:18:00 Test Item Value Reference Range Interpretation Comments PLT RESPONSE TO 228 PRU 194-418 N P2Y12 Result s PLAVIX (test code = Interpre tation: Test PLAVRES) results are in P2Y12 Reaction Units (PRU). Pre-Drug Refe rence Range is 194-41 8. Pre-drug platel et function estima malgorzata the total possible platelet aggregation independent of P2Y12 inhibitor drugs . Values <194 cou ld be due to low HCT, low platelet count, or p resence of IIb/IIIa inhibi tors. Post-Drug Resu lts: Lower PRU levels are associated with expec quoc antiplatelet ef fect. Values may be b elow the stated refe rence range. Studies show that patients wi th <230 PRU had fewer a dverse events. COMPREHENSIVE METABOLIC [id number] 11:13:00 Test Item Value Reference Range Interpretation Comments SODIUM (test code 136 MMOL/L 137-145 L = NA) POTASSIUM (test 4.4 MMOL/L 3.5-5.1 N code = K) CHLORIDE (test 100 MMOL/L 98-107 N code = CL) CARBON DIOXIDE 25 MMOL/L 22-30 N (test code = CO2) ANION GAP (test 15 MMOL/L 14-24 N code = GAP) GLUCOSE (test 221 MG/DL 74-106 H code = GLU) BLOOD UREA 20 MG/DL 9-20 NITROGEN (test code = BUN) GLOMERULAR > 60 Reporting units : FILTRATION RATE ml/min/1.73 m2 (Modified (test code = GFR) MDRD Formu la)Reference Range: > or = 6 0 ml/min/1.73 m2 CREATININE (test 0.90 MG/DL 0.66-1.25 N code = CREAT) TOTAL PROTEIN 7.1 G/DL 6.2-7.6 N [facility] Clinical Diagnostic (test code = has made us filiberto re of PROT) newinformation regarding the potential i nterference ofEltrombopag (a bone marrow stimulan t used to treatthrombocyt onmenia and aplastic anemia ) with specific assays on the Vitros 5600 of which Total Protein is one of thoseassays per formed in our lab.Interfe rence testing perform ed at Ortho determined that Eltrombopag does interfere with Vitros Total Protein asfollowsEltrom bopag Interference fo r Vitros Product Total Protein:======= Eltrombopag Max Observed A vg. BiasConcentrati on Concentration Concentration== ==== 2.5 mg/dl 6.0 g/dl +0.41 +0.34 3.5 mg/dl 6.0 g/dl +0.50 +0.45 5 mg/dl 6.0 g/dl +0.73 +0.65 2.5 mg/dl 8.0 g/dl +0.44 +0.41 3.5 mg/dl 8.0 g/dl +0.55 +0.52 5 mg/dl 8.0 g/dl +0.86 +0.77 ALBUMIN (test 4.2 G/DL 3.5-5.0 N code = ALB) CALCIUM (test 9.4 MG/DL 8.4-10.2 N code = CA) BILIRUBIN TOTAL 1.1 MG/DL 0.2-1.3 N Eltrombopag Interference (test code = for Vitros Prod uct TBil, BILT) BuBc: Assa y Eltrombopag Analyte/ Max Observed Avg. Bias Concentrati on Concentration Concentration== ====TBil 7mg/dl T Stefan/ 1.2mg/dl +0.23 mg.dl +0.20mg/dlBuBc 3.5mg/dl Bu/0.8mg/dl +0.25mg/dl +0 .24mg/dlBuBc 7 mg/dl Bu/14.2mg/dl +0.38mg/dl +0.25mg/dlBuBc 5mg/dl Bc/0mg/dl +0.25mg/dl +0 .15mg/dlBuBc 3.5mg/dl Bc/2.8mg/dl +0.25mg/dl +0.23mg/dl SGOT/AST (test 62 UNITS/L 17-59 H code = AST) SGPT/ALT (test 49 UNITS/L <50 code = ALT) ALKALINE 84 UNITS/L 38-126 N PHOSPHATASE (test code = ALKP) Specimen comments: if not done in the last 72 hoursLIPID PROFILE (CORONARY RISK)2021-01-20 11:13:00 Test Item Value Reference Range Interpretation Comments TRIGLYCERIDES (test 185 MG/DL TRIGLYCE RIDES code = TRIG) REFERENCE RANGE:Normal: < 150 mg/dLBorderline High: 150-199 mg/dLHi gh: 200-499 mg/dLVe ry High: >=500 mg/ dL CHOLESTEROL (test code 99 MG/DL <200 = CHOL) HDL CHOLESTEROL (test 27 MG/DL 40-59 L code = HDL) LIPOPROTEIN LDL (test MG/DL 0-99 code = LDL) Specimen comments: if not done in the [facility] [id number] 10:54:00 Test Item Value Reference Range Interpretation Comments WHITE BLOOD CELL (test code = 6.0 K/MM3 3.8-9.8 N WBC) RED BLOOD CELL (test code = 5.56 M/MM3 3.95-5.67 N RBC) HEMOGLOBIN (test code = HGB) 17.4 G/DL 12.4-16.7 H HEMATOCRIT (test code = HCT) 52.5 % 35.9-49.5 H MEAN CELL VOLUME (test code = 94 fL 81.7-96.1 N MCV) MEAN CELL HGB (test code = MCH) 31.3 pg 27.6-33.2 N MEAN CELL HGB CONCETRATION 33.1 % 32.9-35.5 N (test code = MCHC) RED CELL DISTRIBUTION WIDTH 12.6 % 12.1-15.2 N (test code = RDW) PLATELET COUNT (test code = 229 K/MM3 129-368 N PLT) MEAN PLATELET VOLUME (test code 9.3 fl 7.4-10.4 N = MPV) NEUTROPHIL % (test code = NT%) 44.9 % 43-75 N IMMATURE GRANULOCYTE % (test 0.2 % 0.0-2.0 N code = IG%) LYMPHOCYTE % (test code = LY%) 36.5 % 14-44 N MONOCYTE % (test code = MO%) 13.1 % 4-13 H EOSINOPHIL % (test code = EO%) 4.3 % 0-6 N BASOPHIL % (test code = BA%) 1.0 % 0-2 N NUCLEATED RBC % (test code = 0.0 % 0-1.0 N NRBC%) NEUTROPHIL # (test code = NT#) 2.70 K/mm3 2.0-7.6 N IMMATURE GRANULOCYTE # (test 0.01 x10 3/uL 0-0.03 N code = IG#) LYMPHOCYTE # (test code = LY#) 2.20 K/mm3 1.0-3.8 N MONOCYTE # (test code = MO#) 0.79 K/mm3 0.1-0.8 N EOSINOPHIL # (test code = EO#) 0.26 K/mm3 0.0-0.2 H BASOPHIL # (test code = BA#) 0.06 K/mm3 0.0-0.2 N NUCLEATED RBC # (test code = 0.00 K/mm3 0.0-0.1 N NRBC#) Specimen comments: if not done in the last 72 hoursGLUCOSE BEDSIDE TESTING 2021-01-20 07:28:00 Test Item Value Reference Range Interpretation Comments GLUCOSE BEDSIDE TESTING (test code 143 MG/DL 60-99 H = GLUBED) GLUCOSE BEDSIDE [id number] 19:32:00 Test Item Value Reference Range Interpretation Comments GLUCOSE BEDSIDE TESTING (test code 155 MG/DL 60-99 H = GLUBED) GLUCOSE BEDSIDE [id number] 16:10:00 Test Item Value Reference Range Interpretation Comments GLUCOSE BEDSIDE TESTING (test code 160 MG/DL 60-99 H = GLUBED) GLUCOSE BEDSIDE [id number] 11:45:00 Test Item Value Reference Range Interpretation Comments GLUCOSE BEDSIDE TESTING (test code 183 MG/DL 60-99 H = GLUBED) GLUCOSE BEDSIDE [id number] 08:25:00 Test Item Value Reference Range Interpretation Comments GLUCOSE BEDSIDE TESTING (test code 146 MG/DL 60-99 H = GLUBED) PLT RESPONSE TO [id number] 05:09:00 Test Item Value Reference Range Interpretation Comments PLT RESPONSE TO 194 PRU 194-418 N P2Y12 Result s PLAVIX (test code = Interpre tation: Test PLAVRES) results are in P2Y12 Reaction Units (PRU). Pre-Drug Refe rence Range is 194-41 8. Pre-drug platel et function estima malgorzata the total possible platelet aggregation independent of P2Y12 inhibitor drugs . Values <194 cou ld be due to low HCT, low platelet count, or p resence of IIb/IIIa inhibi tors. Post-Drug Resu lts: Lower PRU levels are associated with expec quoc antiplatelet ef fect. Values may be b elow the stated refe rence range. Studies show that patients wi th <230 PRU had fewer a dverse events. GLUCOSE BEDSIDE [id number] 19:11:00 Test Item Value Reference Range Interpretation Comments GLUCOSE BEDSIDE TESTING (test code 156 MG/DL 60-99 H = GLUBED) GLUCOSE BEDSIDE [id number] 16:04:00 Test Item Value Reference Range Interpretation Comments GLUCOSE BEDSIDE TESTING (test code 143 MG/DL 60-99 H = GLUBED) GLUCOSE BEDSIDE [id number] 11:11:00 Test Item Value Reference Range Interpretation Comments GLUCOSE BEDSIDE TESTING (test code 198 MG/DL 60-99 H = GLUBED) GLUCOSE BEDSIDE [id number] 07:49:00 Test Item Value Reference Range Interpretation Comments GLUCOSE BEDSIDE TESTING (test code 162 MG/DL 60-99 H = GLUBED) GLUCOSE BEDSIDE [id number] 19:50:00 Test Item Value Reference Range Interpretation Comments GLUCOSE BEDSIDE TESTING (test code 194 MG/DL 60-99 H = GLUBED) GLUCOSE BEDSIDE [id number] 16:09:00 Test Item Value Reference Range Interpretation Comments GLUCOSE BEDSIDE TESTING (test code 127 MG/DL 60-99 H = GLUBED) GLUCOSE BEDSIDE [id number] 15:44:00 Test Item Value Reference Range Interpretation Comments GLUCOSE BEDSIDE TESTING (test code 136 MG/DL 60-99 H = GLUBED) GLUCOSE BEDSIDE [id number] 11:20:00 Test Item Value Reference Range Interpretation Comments GLUCOSE BEDSIDE TESTING (test code 154 MG/DL 60-99 H = GLUBED) GLUCOSE BEDSIDE [id number] 07:15:00 Test Item Value Reference Range Interpretation Comments GLUCOSE BEDSIDE TESTING (test code 147 MG/DL 60-99 H = GLUBED) GLUCOSE BEDSIDE [id number] 18:56:00 Test Item Value Reference Range Interpretation Comments GLUCOSE BEDSIDE TESTING (test code 208 MG/DL 60-99 H = GLUBED) GLUCOSE BEDSIDE [id number] 15:54:00 Test Item Value Reference Range Interpretation Comments GLUCOSE BEDSIDE TESTING (test code 142 MG/DL 60-99 H = GLUBED) GLUCOSE BEDSIDE [id number] 11:08:00 Test Item Value Reference Range Interpretation Comments GLUCOSE BEDSIDE TESTING (test code 224 MG/DL 60-99 H = GLUBED) GLUCOSE BEDSIDE [id number] 07:28:00 Test Item Value Reference Range Interpretation Comments GLUCOSE BEDSIDE TESTING (test code 156 MG/DL 60-99 H = GLUBED) BASIC METABOLIC [id number] 04:46:00 Test Item Value Reference Range Interpretation Comments SODIUM (test code = 136 MMOL/L 137-145 L NA) POTASSIUM (test code = 4.3 MMOL/L 3.5-5.1 N K) CHLORIDE (test code = 103 MMOL/L 98-107 N CL) CARBON DIOXIDE (test 25 MMOL/L 22-30 N code = CO2) GLUCOSE (test code = 178 MG/DL 74-106 H GLU) BLOOD UREA NITROGEN 17 MG/DL 9-20 N (test code = BUN) GLOMERULAR FILTRATION > 60 Report ing units: RATE (test code = GFR) ml/mi n/1.73 m2 (Modified MDRD Formula)Referen ce Range: > or = 6 0 ml/min/1.73 m2 CREATININE (test code 0.80 MG/DL 0.66-1.25 N = CREAT) CALCIUM (test code = 9.1 MG/DL 8.4-10.2 N CA) CBC W/AUTO [id number] 04:27:00 Test Item Value Reference Range Interpretation Comments WHITE BLOOD CELL (test code = 8.3 K/MM3 3.8-9.8 N WBC) RED BLOOD CELL (test code = 5.07 M/MM3 3.95-5.67 N RBC) HEMOGLOBIN (test code = HGB) 16.2 G/DL 12.4-16.7 N HEMATOCRIT (test code = HCT) 47.8 % 35.9-49.5 N MEAN CELL VOLUME (test code = 94 fL 81.7-96.1 N MCV) MEAN CELL HGB (test code = MCH) 32.0 pg 27.6-33.2 N MEAN CELL HGB CONCETRATION 33.9 % 32.9-35.5 N (test code = MCHC) RED CELL DISTRIBUTION WIDTH 12.8 % 12.1-15.2 N (test code = RDW) PLATELET COUNT (test code = 232 K/MM3 129-368 N PLT) MEAN PLATELET VOLUME (test code 9.6 fl 7.4-10.4 N = MPV) NEUTROPHIL % (test code = NT%) 48.5 % 43-75 N IMMATURE GRANULOCYTE % (test 0.5 % 0.0-2.0 N code = IG%) LYMPHOCYTE % (test code = LY%) 34.2 % 14-44 N MONOCYTE % (test code = MO%) 12.3 % 4-13 N EOSINOPHIL % (test code = EO%) 4.0 % 0-6 N BASOPHIL % (test code = BA%) 0.5 % 0-2 N NUCLEATED RBC % (test code = 0.0 % 0-1.0 N NRBC%) NEUTROPHIL # (test code = NT#) 4.04 K/mm3 2.0-7.6 N IMMATURE GRANULOCYTE # (test 0.04 x10 3/uL 0-0.03 H code = IG#) LYMPHOCYTE # (test code = LY#) 2.84 K/mm3 1.0-3.8 N MONOCYTE # (test code = MO#) 1.02 K/mm3 0.1-0.8 H EOSINOPHIL # (test code = EO#) 0.33 K/mm3 0.0-0.2 H BASOPHIL # (test code = BA#) 0.04 K/mm3 0.0-0.2 N NUCLEATED RBC # (test code = 0.00 K/mm3 0.0-0.1 N NRBC#) GLUCOSE BEDSIDE [id number] 19:26:00 Test Item Value Reference Range Interpretation Comments GLUCOSE BEDSIDE TESTING (test code 123 MG/DL 60-99 H = GLUBED) GLUCOSE BEDSIDE [id number] 15:35:00 Test Item Value Reference Range Interpretation Comments GLUCOSE BEDSIDE TESTING (test code 185 MG/DL 60-99 H = GLUBED) GLUCOSE BEDSIDE [id number] 10:36:00 Test Item Value Reference Range Interpretation Comments GLUCOSE BEDSIDE TESTING (test code 213 MG/DL 60-99 H = GLUBED) LIPID PROFILE (CORONARY RISK)2021-01-15 02:58:00 Test Item Value Reference Range Interpretation Comments TRIGLYCERIDES (test 218 MG/DL TRIGLYCE RIDES code = TRIG) REFERENCE RANGE:Normal: < 150 mg/dLBorderline High: 150-199 mg/dLHi gh: 200-499 mg/dLVe ry High: >=500 mg/ dL CHOLESTEROL (test code 127 MG/DL <200 = CHOL) HDL CHOLESTEROL (test 36 MG/DL 40-59 L code = HDL) LIPOPROTEIN LDL (test 64 MG/DL 0-99 N code = LDL) OPTIMAL........ .<100 mg/dLNEAR OPTIMAL/ABOVE OPTIMAL........ .100-12 9 mg/dL BORDERLINE HIGH.........13 0-159 mg/dL HIGH.........16 0-189 mg/dL VERY HIGH...... ...>/= 190 mg/dL [id number] 02:58:00 Test Item Value Reference Range Interpretation Comments TROPONIN-I (test 0.337 NG/ML 0.012-0.033 CALLED TO Jose Garcia& code = TROPI) READBACK ON AT 0258 BY Darrin Vieyra LIPID PROFILE (CORONARY RISK)2021-01-15 02:52:00 Test Item Value Reference Range Interpretation Comments TRIGLYCERIDES (test 218 MG/DL TRIGLYCE RIDES code = TRIG) REFERENCE RANGE:Normal: < 150 mg/dLBorderline High: 150-199 mg/dLHi gh: 200-499 mg/dLVe ry High: >=500 mg/ dL CHOLESTEROL (test code 127 MG/DL <200 = CHOL) HDL CHOLESTEROL (test 36 MG/DL 40-59 L code = HDL) LIPOPROTEIN LDL (test 64 MG/DL 0-99 N code = LDL) OPTIMAL........ .<100 mg/dLNEAR OPTIMAL/ABOVE OPTIMAL........ .100-12 9 mg/dL BORDERLINE HIGH.........13 0-159 mg/dL HIGH.........16 0-189 mg/dL VERY HIGH...... ...>/= 190 mg/dL [id number] 02:52:00 Test Item Value Reference Range Interpretation Comments TROPONIN-I (test code = TROPI) NG/ML 0.0-0.045 GLYCOSYLATED HEMOGLOBIN [id number] 02:45:00 Test Item Value Reference Range Interpretation Comments GLYCOSYLATED 7.2 % 4.8-5.9 H Any condition t hat HEMOGLOBIN (HA1C) shortens e rythocyte (test code = survival or dec reasesmean GLYHGB) erythrocyte age (e.g., recovery from a cute blood loss,hemolytic anemia) will falsely lo wer HGBA1c resultsregardle ss of the method used. H GBA1c results from yovanny mari HbSS, HbCC, and HbSc must be interpreted with cautiongiven th e pathological pr ocesses, including anemia,increase d red cell turnover, trans fusion requirements, thatadversely i mpact HGBA1c as a mar ker of long-term glycemiccontrol . Alternative for ms of testing such as fructosaminesho uld be considered for these patients. MEAN BLOOD GLUCOSE 160 MG/DL 70-110 H (test code = MBG) LIPID PROFILE (CORONARY RISK)2021-01-15 02:42:00 Test Item Value Reference Range Interpretation Comments TRIGLYCERIDES (test 218 MG/DL TRIGLYCE RIDES code = TRIG) REFERENCE RANGE:Normal: < 150 mg/dLBorderline High: 150-199 mg/dLHi gh: 200-499 mg/dLVe ry High: >=500 mg/ dL CHOLESTEROL (test code 127 MG/DL <200 = CHOL) HDL CHOLESTEROL (test 36 MG/DL 40-59 L code = HDL) LIPOPROTEIN LDL (test MG/DL 0-99 code = LDL) [id number] 02:42:00 Test Item Value Reference Range Interpretation Comments TROPONIN-I (test code = TROPI) NG/ML 0.0-0.045 COVID 19 Asymptomatic IH [id number] 00:41:00 Test Item Value Reference Range Interpretation Comments COVID 19 NEGATIVE Negative "Negative resul ts from Asymptomatic [facility] patients with symptom (test code = onset beyondfiv e days, COVNONPUIAG) should be betzaida quoc as presumptive, andconfirmation with a molecular assay , if necessary forpa tient management may be performed. Nega tive results do notr ule out COVID-19 and sh ould not be used as the sole basisfor treatm ent or patient managem ent decisions, includinginfect ion control decisio ns. Negative result s should beconsidered in the context of a pa tients recent exposure s,history, and the presenc e of clinical signs and symptomsconsist ent with COVID-19.This t est detects both vi able andnon-viable S ARS-CoV and SARS CoV-2. Test performance dep endson the amount of virus (antigen) in the sample." [id number] 23:19:00 Test Item Value Reference Range Interpretation Comments TROPONIN-I (test 0.457 NG/ML 0.012-0.033 CALLED TO Laura HARRIS& code = TROPI) READBACK ON AT 2319 BY Luisa Givens [id number] 21:32:00 Test Item Value Reference Range Interpretation Comments TROPONIN-I (test 0.500 NG/ML 0.012-0.033 HH CALLED TO Tere VIZCARRA & code = TROPI) READBACK ON AT 2131 BY Luisa Givens [id number] 21:16:00 Test Item Value Reference Range Interpretation Comments MAGNESIUM (test code = MAG) 2.3 MG/DL 1.6-2.3 N PROTHROMBIN [id number] 21:02:00 Test Item Value Reference Range Interpretation Comments PROTHROMBIN TIME PATIENT 11.6 9.5-12.7 N (test code = PTP) INTERNATIONAL NORMAL RATIO 1.0 0.86-1.14 N T he INR is to be used (test code = INR) only for m onitoring oral anticoagulantth erapy. INDICATION INR VALUE ------- ------- -----1. Prophylaxis, d eep venous thrombos is, including high risk surgery. 2.0 - 3.0 2. Prophylaxis, de ep venous thrombos is, hip surgery, tr eatment for deep venous thrombosis or pulmonary preve ntion of systemic embolism in pat ients with valvula r heart disease, atrial fibrillation, tissue heart va lve, or acute myocardia l infarction. 2.0 - 3.0 3. Mechanical pros thesis heart valves, recurrent syste keshav embolism. 3.0 - 4.5 PTT [id number] 21:02:00 Test Item Value Reference Range Interpretation Comments PTT ACTIVATED (test code = APTT) 43.5 SECONDS 25.1-36.5 H GLUCOSE BEDSIDE [id number] 19:02:00 Test Item Value Reference Range Interpretation Comments GLUCOSE BEDSIDE TESTING (test code 218 MG/DL 60-99 H = GLUBED) BASIC METABOLIC [id number] 16:18:00 Test Item Value Reference Range Interpretation Comments SODIUM (test code = 137 MMOL/L 137-145 N NA) POTASSIUM (test code = 4.3 MMOL/L 3.5-5.1 N K) CHLORIDE (test code = 103 MMOL/L 98-107 N CL) CARBON DIOXIDE (test 24 MMOL/L 22-30 N code = CO2) GLUCOSE (test code = 183 MG/DL 74-106 H GLU) BLOOD UREA NITROGEN 16 MG/DL 9-20 N (test code = BUN) GLOMERULAR FILTRATION > 60 Report ing units: RATE (test code = GFR) ml/mi n/1.73 m2 (Modified MDRD Formula)Referen ce Range: > or = 6 0 ml/min/1.73 m2 CREATININE (test code 0.70 MG/DL 0.66-1.25 N = CREAT) CALCIUM (test code = 9.6 MG/DL 8.4-10.2 N CA) LIPOPROTEIN LDL [id number] 16:18:00 Test Item Value Reference Range Interpretation Comments LIPOPROTEIN LDL DIRECT 66 mg/dL 100-129 L ===== (test code = LDLDIR) ======= ==Refe rence Interval: mg/dL mmol/L--------- ------ ------ ------ --Optimal <100 <2.6Near/abov e optimal 100-129 2.6-3.3Borderli ne High 130-159 3.4-4.1High 16 0-189 4.1-4.9Ve ry High >=190 >=4.9========= This LDL result is a direct measurement.=== ====== [id number] 16:18:00 Test Item Value Reference Range Interpretation Comments TROPONIN-I (test 0.521 NG/ML 0.012-0.033 HH CALLED TO Shiva SAEED & code = TROPI) READBACK ON AT 1545 BY Luisa Givens BASIC METABOLIC [id number] 15:46:00 Test Item Value Reference Range Interpretation Comments SODIUM (test code = 137 MMOL/L 137-145 N NA) POTASSIUM (test code = 4.3 MMOL/L 3.5-5.1 N K) CHLORIDE (test code = 103 MMOL/L 98-107 N CL) CARBON DIOXIDE (test 24 MMOL/L 22-30 N code = CO2) GLUCOSE (test code = 183 MG/DL 74-106 H GLU) BLOOD UREA NITROGEN 16 MG/DL 9-20 N (test code = BUN) GLOMERULAR FILTRATION > 60 Report ing units: RATE (test code = GFR) ml/mi n/1.73 m2 (Modified MDRD Formula)Referen ce Range: > or = 6 0 ml/min/1.73 m2 CREATININE (test code 0.70 MG/DL 0.66-1.25 N = CREAT) CALCIUM (test code = 9.6 MG/DL 8.4-10.2 N CA) LIPOPROTEIN LDL [id number] 15:46:00 Test Item Value Reference Range Interpretation Comments LIPOPROTEIN LDL DIRECT (test code = mg/dL 100-129 LDLDIR) [id number] 15:46:00 Test Item Value Reference Range Interpretation Comments TROPONIN-I (test 0.521 NG/ML 0.012-0.033 HH CALLED TO Shiva SAEED & code = TROPI) READBACK ON AT 1545 BY Luisa Givens BASIC METABOLIC [id number] 15:09:00 Test Item Value Reference Range Interpretation Comments SODIUM (test code = 137 MMOL/L 137-145 N NA) POTASSIUM (test code = 4.3 MMOL/L 3.5-5.1 N K) CHLORIDE (test code = 103 MMOL/L 98-107 N CL) CARBON DIOXIDE (test 24 MMOL/L 22-30 N code = CO2) GLUCOSE (test code = 183 MG/DL 74-106 H GLU) BLOOD UREA NITROGEN 16 MG/DL 9-20 N (test code = BUN) GLOMERULAR FILTRATION > 60 Report ing units: RATE (test code = GFR) ml/mi n/1.73 m2 (Modified MDRD Formula)Referen ce Range: > or = 6 0 ml/min/1.73 m2 CREATININE (test code 0.70 MG/DL 0.66-1.25 N = CREAT) CALCIUM (test code = 9.6 MG/DL 8.4-10.2 N CA) [id number] 15:09:00 Test Item Value Reference Range Interpretation Comments TROPONIN-I (test code = TROPI) NG/ML 0.0-0.045 CBC W/AUTO [id number] 14:46:00 Test Item Value Reference Range Interpretation Comments WHITE BLOOD CELL (test code = 9.2 K/MM3 3.8-9.8 N WBC) RED BLOOD CELL (test code = 5.51 M/MM3 3.95-5.67 N RBC) HEMOGLOBIN (test code = HGB) 17.2 G/DL 12.4-16.7 H HEMATOCRIT (test code = HCT) 51.9 % 35.9-49.5 H MEAN CELL VOLUME (test code = 94 fL 81.7-96.1 N MCV) MEAN CELL HGB (test code = MCH) 31.2 pg 27.6-33.2 N MEAN CELL HGB CONCETRATION 33.1 % 32.9-35.5 N (test code = MCHC) RED CELL DISTRIBUTION WIDTH 12.9 % 12.1-15.2 N (test code = RDW) PLATELET COUNT (test code = 218 K/MM3 129-368 N PLT) MEAN PLATELET VOLUME (test code 9.4 fl 7.4-10.4 N = MPV) NEUTROPHIL % (test code = NT%) 67.6 % 43-75 N IMMATURE GRANULOCYTE % (test 0.4 % 0.0-2.0 N code = IG%) LYMPHOCYTE % (test code = LY%) 21.0 % 14-44 N MONOCYTE % (test code = MO%) 8.9 % 4-13 N EOSINOPHIL % (test code = EO%) 1.6 % 0-6 N BASOPHIL % (test code = BA%) 0.5 % 0-2 N NUCLEATED RBC % (test code = 0.0 % 0-1.0 N NRBC%) NEUTROPHIL # (test code = NT#) 6.22 K/mm3 2.0-7.6 N IMMATURE GRANULOCYTE # (test 0.04 x10 3/uL 0-0.03 H code = IG#) LYMPHOCYTE # (test code = LY#) 1.93 K/mm3 1.0-3.8 N MONOCYTE # (test code = MO#) 0.82 K/mm3 0.1-0.8 H EOSINOPHIL # (test code = EO#) 0.15 K/mm3 0.0-0.2 N BASOPHIL # (test code = BA#) 0.05 K/mm3 0.0-0.2 N NUCLEATED RBC # (test code = 0.00 K/mm3 0.0-0.1 N NRBC#) POCT-GLUCOSE [id number] 08:24:00 Test Item Value Reference Range Interpretation Comments POC-GLUCOSE METER 199 mg/dL 70-110 H TESTED AT [facility] [address] (BEAKER) (test code = [place] 1538) [address] BASIC METABOLIC [id number] 04:13:00 Test Item Value Reference Range Interpretation Comments SODIUM (BEAKER) 138 meq/L 136-145 (test code = 381) POTASSIUM (BEAKER) 4.2 meq/L 3.5-5.1 (test code = 379) CHLORIDE (BEAKER) 105 meq/L 98-107 (test code = 382) CO2 (BEAKER) (test 25 meq/L 22-29 code = 355) BLOOD UREA NITROGEN 17 mg/dL 7-21 (BEAKER) (test code = 354) CREATININE (BEAKER) 0.98 mg/dL 0.57-1.25 (test code = 358) GLUCOSE RANDOM 196 mg/dL 70-105 H (BEAKER) (test code = 652) CALCIUM (BEAKER) 9.3 mg/dL 8.4-10.2 (test code = 697) EGFR (BEAKER) (test 78 mL/min/1.73 ESTIMA QUOC GFR IS code = 1092) sq m NOT ACCURATE CREATININE CLEARANCE IN PREDICTING GLOMERULAR FILTRATION RATE . ESTIMATED GFR I S NOT APPLICABLE FOR DIALYSIS PATIEN TS. CBC W/PLT COUNT & AUTO [id number] 04:00:00 Test Item Value Reference Range Interpretation Comments WHITE BLOOD CELL COUNT (BEAKER) 8.3 K/ L 3.5-10.5 (test code = 775) RED BLOOD CELL COUNT (BEAKER) 5.01 M/ L 4.63-6.08 (test code = 761) HEMOGLOBIN (BEAKER) (test code = 15.4 GM/DL 13.7-17.5 410) HEMATOCRIT (BEAKER) (test code = 46.3 % 40.1-51.0 411) MEAN CORPUSCULAR VOLUME (BEAKER) 92.4 fL 79.0-92.2 H (test code = 753) MEAN CORPUSCULAR HEMOGLOBIN 30.7 pg 25.7-32.2 (BEAKER) (test code = 751) MEAN CORPUSCULAR HEMOGLOBIN CONC 33.3 GM/DL 32.3-36.5 (BEAKER) (test code = 752) RED CELL DISTRIBUTION WIDTH 13.0 % 11.6-14.4 (BEAKER) (test code = 412) PLATELET COUNT (BEAKER) (test 273 K/CU MM 150-450 code = 756) MEAN PLATELET VOLUME (BEAKER) 9.1 fL 9.4-12.4 L (test code = 754) NUCLEATED RED BLOOD CELLS 0 /100 WBC 0-0 (BEAKER) (test code = 413) NEUTROPHILS RELATIVE PERCENT 50 % (BEAKER) (test code = 429) LYMPHOCYTES RELATIVE PERCENT 35 % (BEAKER) (test code = 430) MONOCYTES RELATIVE PERCENT 11 % (BEAKER) (test code = 431) EOSINOPHILS RELATIVE PERCENT 2 % (BEAKER) (test code = 432) BASOPHILS RELATIVE PERCENT 1 % (BEAKER) (test code = 437) NEUTROPHILS ABSOLUTE COUNT 4.12 K/ L 1.78-5.38 (BEAKER) (test code = 670) LYMPHOCYTES ABSOLUTE COUNT 2.86 K/ L 1.32-3.57 (BEAKER) (test code = 414) MONOCYTES ABSOLUTE COUNT (BEAKER) 0.94 K/ L 0.30-0.82 H (test code = 415) EOSINOPHILS ABSOLUTE COUNT 0.18 K/ L 0.04-0.54 (BEAKER) (test code = 416) BASOPHILS ABSOLUTE COUNT (BEAKER) 0.05 K/ L 0.01-0.08 (test code = 417) IMMATURE GRANULOCYTES-RELATIVE 1 % 0-1 PERCENT (BEAKER) (test code = 2801) POCT-GLUCOSE [id number] 21:42:00 Test Item Value Reference Range Interpretation Comments POC-GLUCOSE METER 218 mg/dL 70-110 H TESTED AT [facility] [address] (BEAKER) (test code = [place] 1538) [id number] CBC (HEMOGRAM ONLY)2018-10-01 19:29:00 Test Item Value Reference Range Interpretation Comments WHITE BLOOD CELL COUNT (BEAKER) 7.5 K/ L 3.5-10.5 (test code = 775) RED BLOOD CELL COUNT (BEAKER) 5.30 M/ L 4.63-6.08 (test code = 761) HEMOGLOBIN (BEAKER) (test code = 16.4 GM/DL 13.7-17.5 410) HEMATOCRIT (BEAKER) (test code = 48.0 % 40.1-51.0 411) MEAN CORPUSCULAR VOLUME (BEAKER) 90.6 fL 79.0-92.2 (test code = 753) MEAN CORPUSCULAR HEMOGLOBIN 30.9 pg 25.7-32.2 (BEAKER) (test code = 751) MEAN CORPUSCULAR HEMOGLOBIN CONC 34.2 GM/DL 32.3-36.5 (BEAKER) (test code = 752) RED CELL DISTRIBUTION WIDTH 13.0 % 11.6-14.4 (BEAKER) (test code = 412) PLATELET COUNT (BEAKER) (test 323 K/CU MM 150-450 code = 756) MEAN PLATELET VOLUME (BEAKER) 9.2 fL 9.4-12.4 L (test code = 754) NUCLEATED RED BLOOD CELLS 0 /100 WBC 0-0 (AKER) (test code = 413) POCT-GLUCOSE [id number] 17:50:00 Test Item Value Reference Range Interpretation Comments POC-GLUCOSE METER 139 mg/dL 70-110 H TESTED AT [place] [address] ([facility]) (test code = [place] 1538) [id number] 16:49:00 Test Item Value Reference Range Interpretation Comments ACTIVATED CLOTTING TIME 114 sec TEST ED AT [place] [address] ([facility]) (test code = [place] [address]) [address] POCT-GLUCOSE [id number] 12:01:00 Test Item Value Reference Range Interpretation Comments POC-GLUCOSE METER 235 mg/dL 70-110 H TESTED AT [place] [address] ([facility]) (test code = [place] 1538) [address] HEMOGLOBIN [id number] 09:12:00 Test Item Value Reference Range Interpretation Comments HEMOGLOBIN A1C ([facility]) (test code = 8.5 % 4.3-6.1 H 368) POCT-GLUCOSE [id number] 08:19:00 Test Item Value Reference Range Interpretation Comments POC-GLUCOSE METER 284 mg/dL 70-110 H TESTED AT [facility] [address] ([facility]) (test code = [place] [facility] 1538) [id number] TROPONIN [id number] 06:57:00 Test Item Value Reference Range Interpretation Comments TROPONIN I ([facility]) (test code = 1.35 ng/mL 0.00-0.03 397) Troponin I (TnI) levels must be interpreted [...] failure, acidosis, acute neurological disease, and persistent tachyarrhythmia.[id number] 06:43:00 Test Item Value Reference Range Interpretation Comments PARTIAL THROMBOPLASTIN TIME 57.7 seconds 22.5-36.0 H ([facility]) (test code = 760) TROPONIN [id number] 01:21:00 Test Item Value Reference Range Interpretation Comments TROPONIN I ([facility]) (test code = 1.68 ng/mL 0.00-0.03 397) Troponin I (TnI) levels must be interpreted [...] failure, acidosis, acute neurological disease, and persistent tachyarrhythmia.[id number] 00:50:00 Test Item Value Reference Range Interpretation Comments PARTIAL THROMBOPLASTIN TIME 42.4 seconds 22.5-36.0 H ([facility]) (test code = 760) POCT-GLUCOSE [id number] 21:47:00 Test Item Value Reference Range Interpretation Comments POC-GLUCOSE METER 277 mg/dL 70-110 H TESTED AT [facility] [address] ([facility]) (test code = [facility] 1538) [address] RAD, CHEST, 1 VIEW, NON [id number] 19:55:00Reason for exam:->chest painShould this be performed at the bedside?->YesFINAL REPORT AP view of the chest dated 09/30/2018 COMPARISON: September 17, 2011 CLINICAL INFORMATION: chest pain Comment: Heart is normal in size. Pulmonary vasculature is unremarkable. Lungs are clear. No pulmonary infiltrate or pleural effusion is present. Impression: No active cardiopulmonary disease or interval change. Signed: rPashanth Hunter MDReport Verified Date/Time: 09/30/2018 19:55:13 Reading Location: [address] Consult Reading Room B-TYPE NATRIURETIC FACTOR (BNP) 2018-09-30 18:03:00 Test Item Value Reference Range Interpretation Comments B-TYPE NATRIURETIC PEPTIDE (BEAKER) < pg/mL 0-100 (test code = 700) TROPONIN [id number] 18:00:00 Test Item Value Reference Range Interpretation Comments TROPONIN I (BEAKER) (test code = 0.98 ng/mL 0.00-0.03 HH 397) Troponin I (TnI) levels must be interpreted [...] failure, acidosis, acute neurological disease, and persistent tachyarrhythmia.[id number] 17:46:00 Test Item Value Reference Range Interpretation Comments MAGNESIUM (BEAKER) (test code = 2.0 mg/dL 1.6-2.6 627) COMPREHENSIVE METABOLIC [id number] 17:46:00 Test Item Value Reference Range Interpretation Comments TOTAL PROTEIN 7.2 gm/dL 6.0-8.3 (BEAKER) (test code = 770) ALBUMIN (BEAKER) 4.3 g/dL 3.5-5.0 (test code = 1145) ALKALINE PHOSPHATASE 108 U/L 40-150 (BEAKER) (test code = 346) BILIRUBIN TOTAL 1.0 mg/dL 0.2-1.2 (BEAKER) (test code = 377) SODIUM (BEAKER) (test 138 meq/L 136-145 code = 381) POTASSIUM (BEAKER) 4.2 meq/L 3.5-5.1 (test code = 379) CHLORIDE (BEAKER) 106 meq/L 98-107 (test code = 382) CO2 (BEAKER) (test 24 meq/L 22-29 code = 355) BLOOD UREA NITROGEN 19 mg/dL 7-21 (BEAKER) (test code = 354) CREATININE (BEAKER) 0.88 mg/dL 0.57-1.25 (test code = 358) GLUCOSE RANDOM 174 mg/dL 70-105 H (BEAKER) (test code = 652) CALCIUM (BEAKER) 9.8 mg/dL 8.4-10.2 (test code = 697) AST (SGOT) (BEAKER) 23 U/L 5-34 (test code = 353) ALT (SGPT) (BEAKER) 14 U/L 6-55 (test code = 347) EGFR (BEAKER) (test 89 mL/min/1.73 ESTIMA QUOC GFR IS code = 1092) sq m NOT ACCURATE CREATININE CLEARANCE IN PREDICTING GLOMERULAR FILTRATION RATE . ESTIMATED GFR I S NOT APPLICABLE FOR DIALYSIS PATIEN TS. LIPID [id number] 17:46:00 Test Item Value Reference Range Interpretation Comments TRIGLYCERIDES (BEAKER) (test code = 175 mg/dL 540) CHOLESTEROL (BEAKER) (test code = 200 mg/dL 631) HDL CHOLESTEROL (BEAKER) (test code 40 mg/dL = 976) LDL CHOLESTEROL CALCULATED (BEAKER) 125 mg/dL (test code = 633) Triglyceride Reference Range: Low Risk <150 Borderline 150-199 High Risk 200-499 Very High Risk >=500Cholesterol Reference Range: Low Risk <200 Borderline 200-239 High Risk >240HDL Cholesterol Reference Range: Low Risk >=60 High Risk <40LDL Cholesterol Reference Range: Optimal <100 Near Optimal 100-129 Borderline 130-159 High 160-189 Very High >=[id number] 17:34:00 Test Item Value Reference Range Interpretation Comments PARTIAL THROMBOPLASTIN TIME 46.0 seconds 22.5-36.0 H (BEAKER) (test code = 760) CBC W/PLT COUNT & AUTO [id number] 17:28:00 Test Item Value Reference Range Interpretation Comments WHITE BLOOD CELL COUNT (BEAKER) 10.2 K/ L 3.5-10.5 (test code = 775) RED BLOOD CELL COUNT (BEAKER) 5.01 M/ L 4.63-6.08 (test code = 761) HEMOGLOBIN (BEAKER) (test code = 15.4 GM/DL 13.7-17.5 410) HEMATOCRIT (BEAKER) (test code = 45.2 % 40.1-51.0 411) MEAN CORPUSCULAR VOLUME (BEAKER) 90.2 fL 79.0-92.2 (test code = 753) MEAN CORPUSCULAR HEMOGLOBIN 30.7 pg 25.7-32.2 (BEAKER) (test code = 751) MEAN CORPUSCULAR HEMOGLOBIN CONC 34.1 GM/DL 32.3-36.5 (BEAKER) (test code = 752) RED CELL DISTRIBUTION WIDTH 12.7 % 11.6-14.4 (BEAKER) (test code = 412) PLATELET COUNT (BEAKER) (test 288 K/CU MM 150-450 code = 756) MEAN PLATELET VOLUME (BEAKER) 9.1 fL 9.4-12.4 L (test code = 754) NUCLEATED RED BLOOD CELLS 0 /100 WBC 0-0 (BEAKER) (test code = 413) NEUTROPHILS RELATIVE PERCENT 50 % (BEAKER) (test code = 429) LYMPHOCYTES RELATIVE PERCENT 38 % (BEAKER) (test code = 430) MONOCYTES RELATIVE PERCENT 9 % (BEAKER) (test code = 431) EOSINOPHILS RELATIVE PERCENT 1 % (BEAKER) (test code = 432) BASOPHILS RELATIVE PERCENT 1 % (BEAKER) (test code = 437) NEUTROPHILS ABSOLUTE COUNT 5.06 K/ L 1.78-5.38 (BEAKER) (test code = 670) LYMPHOCYTES ABSOLUTE COUNT 3.89 K/ L 1.32-3.57 H (BEAKER) (test code = 414) MONOCYTES ABSOLUTE COUNT (BEAKER) 0.87 K/ L 0.30-0.82 H (test code = 415) EOSINOPHILS ABSOLUTE COUNT 0.12 K/ L 0.04-0.54 (BEAKER) (test code = 416) BASOPHILS ABSOLUTE COUNT ([facility]) 0.07 K/ L 0.01-0.08 (test code = 417) IMMATURE GRANULOCYTES-RELATIVE 2 % 0-1 H PERCENT ([facility]) (test code = 2801) POCT-GLUCOSE [id number] 17:20:00 Test Item Value Reference Range Interpretation Comments POC-GLUCOSE METER 212 mg/dL 70-110 H TESTED AT [facility] [address] ([facility]) (test code = [place] 1538) [address]
== END 2021-06-29 20:50 | disposition home or self-care (01) ==
LOC: ER 18:21
DX: R19.7 Diarrhea, unspecified (principal); I10 Essential (primary) hypertension; E11.9 Type 2 diabetes mellitus without complications; Z88.2 Allergy status to sulfonamides; Z88.8 Allergy status to other drugs, medicaments and biological substances
CPT/HCPCS: 87045; 85025; 80048; 36415; 80076; 87046; 87324; 83690; 87449; 96374; 99284; J7030; J2405

== ENCOUNTER 2021-06-30 11:03 | Observation (INO) | payer BC ==
[2021-06-30 12:01] LABS: Absolute Lymphocytes (CBC) 2.3 K/uL (0.7-4.9); Basophils % 0.2 % (0-1.3); Hematocrit 48.8 % (39.6-49.0); Lymphocytes % 20.2 % (15.3-44.8); MPV 7.3 fL (7.6-11.3)
[2021-06-30 12:20] LABS: Albumin 4.2 g/dL (3.4-5.0); Bilirubin Direct 0.3 mg/dL (0-0.2); Bilirubin Total 1.6 mg/dL (0.2-1.0); Protein, Total 7.6 g/dL (6.4-8.2)
--- NOTE | 2021-06-30 12:21 | RAD REPORT ---
EXAM DESCRIPTION: CT - Abdomen Pelvis W Contrast - 06/30/2021 11:39 am CLINICAL HISTORY: Abdominal pain COMPARISON: 2019 TECHNIQUE: Computed axial tomography of the abdomen pelvis was obtained. 100 cc Isovue-300 was admin istered intravenously. Oral contrast was not requested which limits evaluation of bowel. All CT scans are performed using dose optimization technique as appropriate and may include automated exposure control or mA/KV adjustment according to patient size. FINDINGS: Gastric wall appears mildly thickened. Fluid within nondilated small bowel. The liver, spleen, pancreas, adrenal and kidneys appear unremarkable. There is no evidence of diverticulitis. Small inguinal hernias contain fat. Postsurgical changes of ventral hernia repair Marked spondylosis L3-4 consisting of disc space narrowing, osteophytes, subchondral sclerosis and va cuum phenomena. Additional spondylosis L5-S1 with mild posterior subluxation IMPRESSION: Apparent mild thickening of the gastric wall may indicate gastritis or be secondary to i ncomplete distention Fluid within nondilated small bowel may indicate an enteritis
--- NOTE | 2021-06-30 13:08 | ER ---
Nurse's Notes [facility] Name: Kevin Castellon Age: 60 yrs Sex: Male : 1960 Arrival Date: 06/30/2021 Time: 11:04 Bed 19 Private MD: London Aguiar R Diagnosis: Vomiting, unspecified;Diarrhea, unspecified;Enteritis Presentation: 06/30 11:14 Chief complaint: Patient states: pt has had diarrhea X 10 days, was seen her last iw night, diarrhea was worse today, sent by Dr. Aguiar , reports dark green/black liquid stool, also has been vomiting , no blood in vomit, reports mild low abd pain. Coronavirus screen: diarrhea, Client presents with at least one sign or symptom that may indicate coronavirus-19. Ebola Screen: Patient negative for fever greater than or equal to 101.5 degrees Fahrenheit, and additional compatible Ebola Virus Disease symptoms Patient denies exposure to infectious person. Patient denies travel to an Ebola-affected area in the 21 days before illness onset. No symptoms or risks identified at this time. Onset of symptoms was June 20, 2021. 11:14 Method Of Arrival: Ambulatory iw 11:14 Acuity: HUGH 3 iw 11:29 Risk Assessment: Do you want to hurt yourself or someone else? Patient reports no sl2 desire to harm self or others. 11:29 Initial Sepsis Screen: Does the patient meet any 2 criteria? No. Patient's initial sl2 sepsis screen is negative. Historical: - Allergies: 11:20 Amiodarone; iw 11:20 Sulfa (Sulfonamide Antibiotics); iw - PMHx: 11:20 Diabetes - NIDDM; High Cholesterol; Hypertension; Myocardial infarction; iw - PSHx: 11:20 Appendectomy; B shoulder SX; hernia repair x 2; quad. bypass; iw - Immunization history:: Client reports having NOT received the Covid vaccine. - Social history:: Smoking status: Patient denies any tobacco usage or history of. - Family history:: not pertinent. - Hospitalizations: : No recent hospitalization is reported. Screenin:28 Abuse screen: Denies threats or abuse. Nutritional screening: No deficits noted. sl2 Tuberculosis screening: No symptoms or risk factors identified. Fall Risk None identified. Fall in past 12 months (25 points). No secondary diagnosis (0 pts). IV access (20 points). Ambulatory Aid- None/Bed Rest/Nurse Assist (0 pts). Gait- Normal/Bed Rest/Wheelchair (0 pts) Mental Status- Oriented to own ability (0 pts). Total Penn Fall Scale indicates No Risk (0-24 pts). Assessment: 11:28 General: Appears in no apparent distress. comfortable, well groomed, well developed, sl2 Behavior is calm, cooperative, appropriate for age. 11:28 Pain: Denies pain. Neuro: No deficits noted. Level of Consciousness is awake, alert, sl2 obeys commands, Oriented to person, place, time, situation, Appropriate for age Retail Receiving Clerk are equal bilaterally Moves all extremities. Gait is steady, Speech is normal, Facial symmetry appears normal. Cardiovascular: No deficits noted. Capillary refill < 3 seconds Rhythm is sinus rhythm. Respiratory: No deficits noted. Reports Airway is patent Trachea midline Respiratory effort is even, unlabored, Respiratory pattern is regular, symmetrical, Breath sounds are clear bilaterally. GI: Abdomen is round obese, Bowel sounds present X 4 quads. Abd is soft and non tender X 4 quads. Reports diarrhea, nausea, vomiting, Patient currently denies abdominal pain. : No deficits noted. No signs and/or symptoms were reported regarding the genitourinary system. EENT: No deficits noted. No signs and/or symptoms were reported regarding the EENT system. Derm: No deficits noted. No signs and/or symptoms reported regarding the dermatologic system. Musculoskeletal: No deficits noted. No signs and/or symptoms reported regarding the musculoskeletal system. Vital Signs: 11:21 BP 111 / 78; Pulse 79; Resp 16; Temp 97.4; Pulse Ox 99% on R/A; iw 12:00 BP 102 / 76; Pulse 75; Resp 16; Temp 97.6(O); Pulse Ox 99% on R/A; sl2 13:00 BP 108 / 74; Pulse 75; Resp 18; Temp 97.6(O); Pulse Ox 97% on R/A; sl2 13:45 BP 107 / 69; Pulse 71; Resp 18; Pulse Ox 98% on R/A; sl2 14:30 BP 101 / 70; Pulse 64; Resp 18; Temp 97.9(O); Pulse Ox 98% on R/A; sl2 15:30 BP 103 / 72; Pulse 64; Resp 18; Temp 97.8; Pulse Ox 99% on R/A; sl2 ED Course: 11:04 Patient arrived in ED. as 11:04 London Aguiar MD is Private Physician. as 11:06 Doug Anguiano MD is Attending Physician. rn 11:16 Triage completed. iw 11:20 Initial lab(s) drawn, by me, sent to lab. COVID swab sent to lab. Inserted saline lock: kj1 20 gauge in right antecubital area, using aseptic technique. Blood collected. 11:28 No provider procedures requiring assistance completed. sl2 11:28 Patient has correct armband on for positive identification. Bed in low position. Call sl2 light in reach. Side rails up X2. bus driver/monitor on. Pulse ox on. NIBP on. Door closed. Noise minimized. Warm blanket given. Pillow given. 11:39 CT Abd/Pelvis - IV Contrast Only In Process Unspecified. EDMS 13:01 Talya Larson, LINDA is Primary Nurse. sl2 13:04 Jah Jacobs is Hospitalizing Provider. rn Administered Medications: 12:52 Drug: NS 0.9% 1000 ml Route: IV; Rate: 1000 ml; Site: right antecubital; sl2 13:30 Follow up: Response: No adverse reaction sl2 14:35 Follow up: IV Status: Completed infusion; IV Intake: 1000ml sl2 12:52 Drug: Zofran (Ondansetron) 4 mg Route: IVP; Site: right antecubital; sl2 13:30 Follow up: Response: No adverse reaction sl2 14:35 Follow up: Response: No adverse reaction sl2 Intake: 14:35 IV: 1000ml; Total: 1000ml. sl2 Outcome: 13:08 Decision to Hospitalize by Provider. rn 17:31 Patient left the ED. 5 Signatures: Dispatcher [employer] Brittny Rosales Irene, RN LINDA Doug Anguiano MD MD rn Martinez, [facility] Mara Dobson kj1 Talya Larson RN RN 2
--- NOTE | 2021-06-30 13:08 | EDPHYS ---
Physician Documentation [facility] Name: Kevin Castellon Age: 60 yrs Sex: Male : 1960 Arrival Date: 06/30/2021 Time: 11:04 Bed 19 Private MD: London Aguiar R ED Physician Doug Anguiano HPI: 06/30 11:35 This 60 yrs old Male presents to ER via Ambulatory with complaints of rn Vomiting/Diarrhea. 11:35 The patient presents to the emergency department with nausea, vomiting, diarrhea. rn 11:36 Onset: The symptoms/episode began/occurred 10 day(s) ago. Possible causes: unknown. The rn symptoms are aggravated by nothing. The symptoms are alleviated by nothing. Associated signs and symptoms: Pertinent positives: abdominal pain, diarrhea, nausea, vomiting, Pertinent negatives: GI bleeding. Severity of symptoms: At their worst the symptoms were moderate in the emergency department the symptoms are unchanged. The patient has not experienced similar symptoms in the past. The patient has been recently seen by a physician: The patient has been recently seen at the [facility] Emergency Department. Historical: - Allergies: 11:20 Amiodarone; iw 11:20 Sulfa (Sulfonamide Antibiotics); iw - PMHx: 11:20 Diabetes - NIDDM; High Cholesterol; Hypertension; Myocardial infarction; iw - PSHx: 11:20 Appendectomy; B shoulder SX; hernia repair x 2; quad. bypass; iw - Immunization history:: Client reports having NOT received the Covid vaccine. - Social history:: Smoking status: Patient denies any tobacco usage or history of. - Family history:: not pertinent. - Hospitalizations: : No recent hospitalization is reported. ROS: 11:36 Constitutional: Negative for fever, chills, and weight loss, Eyes: Negative for injury, rn pain, redness, and discharge, Neck: Negative for injury, pain, and swelling, Cardiovascular: Negative for chest pain, palpitations, and edema, Respiratory: Negative for shortness of breath, cough, wheezing, and pleuritic chest pain, Abdomen/GI: Negative for diarrhea, and constipation Back: Negative for injury and pain, : Negative for injury, bleeding, discharge, and swelling, MS/Extremity: Negative for injury and deformity, Skin: Negative for injury, rash, and discoloration, Neuro: Negative for headache, numbness, tingling, and seizure. Exam: 11:36 Constitutional: This is a well developed, well nourished patient who is awake, alert, rn and in no acute distress. Head/Face: Normocephalic, atraumatic. Eyes: Periorbital areas with no swelling, redness, or edema. Cardiovascular: Regular rate and rhythm. No pulse deficits. Respiratory: No increased work of breathing, no retractions or nasal flaring. Abdomen/GI: Soft, non-tender Skin: Warm, dry with normal turgor. Normal color with no rashes, no lesions, and no evidence of cellulitis. MS/ Extremity: Pulses equal, no cyanosis. Neurovascular intact. Full, normal range of motion. Equal circumference. Neuro: Awake and alert, GCS 15, oriented to person, place, time, and situation. Vital Signs: 11:21 BP 111 / 78; Pulse 79; Resp 16; Temp 97.4; Pulse Ox 99% on R/A; iw 12:00 BP 102 / 76; Pulse 75; Resp 16; Temp 97.6(O); Pulse Ox 99% on R/A; sl2 13:00 BP 108 / 74; Pulse 75; Resp 18; Temp 97.6(O); Pulse Ox 97% on R/A; sl2 13:45 BP 107 / 69; Pulse 71; Resp 18; Pulse Ox 98% on R/A; sl2 14:30 BP 101 / 70; Pulse 64; Resp 18; Temp 97.9(O); Pulse Ox 98% on R/A; sl2 15:30 BP 103 / 72; Pulse 64; Resp 18; Temp 97.8; Pulse Ox 99% on R/A; sl2 MDM: 11:07 Patient medically screened. rn 13:03 Differential diagnosis: Nonspecific abd pain, gastritis, cholecystitis, pancreatitis, rn appendicitis, diverticulitis, viral gastroenteritis, gastroenteritis. Data reviewed: vital signs, nurses notes, lab test result(s), radiologic studies, CT scan, and as a result, I will admit patient. Counseling: I had a detailed discussion with the patient and/or guardian regarding: the historical points, exam findings, and any diagnostic results supporting the discharge/admit diagnosis, lab results, radiology results, the need for further work-up and treatment in the hospital. Response to treatment: the patient's symptoms have mildly improved after treatment, and as a result, I will admit patient. Admission orders: after a detailed discussion of the patient's condition and case, the admit orders are written by me. ED course: Patient still does not feel well, blood pressure borderline 97/59. Second visit in [address] shows findings more consistent with an enteritis in no acute surgical causes. Will labs overnight for IV hydration. 06/30 11: Order name: Basic Metabolic Panel; Complete Time: 12: rn 06/30 11: Order name: CBC with Diff; Complete Time: : rn 06/30 11: Order name: Hepatic Function; Complete Time: : rn 06/30 11: Order name: Lipase; Complete Time: rn 06/30 11:28 Order name: COVID-19 SARS RT PCR (Document "Date of Onset" if Symptomatic); Complete [email or web address] Time: 14:05 06/30 11: Order name: IV Saline Lock; Complete Time: : rn 06/30 11: Order name: Labs collected and sent; Complete Time: rn 06/30 11:21 Order name: CT Abd/Pelvis - IV Contrast Only; Complete Time: 12: rn Administered Medications: 12:52 Drug: NS 0.9% 1000 ml Route: IV; Rate: 1000 ml; Site: right antecubital; sl2 13:30 Follow up: Response: No adverse reaction sl2 14:35 Follow up: IV Status: Completed infusion; IV Intake: 1000ml sl2 12:52 Drug: Zofran (Ondansetron) 4 mg Route: IVP; Site: right antecubital; sl2 13:30 Follow up: Response: No adverse reaction sl2 14:35 Follow up: Response: No adverse reaction sl2 Disposition Summary: 06/30/21 13:08 Hospitalization Ordered Hospitalization Status: Observation rn Provider: Jah Jacobs rn Location: Telemetry/[facility] (observation) rn Condition: Stable rn Problem: new rn Symptoms: are unchanged rn Bed/Room Type: Standard rn Room Assignment: 215(06/30/21 15:08) dw Diagnosis - Vomiting, unspecified rn - Diarrhea, unspecified rn - Enteritis rn Forms: - Medication Reconciliation Form rn - SBAR form rn Signatures: Dispatcher [employer] Shelby Jim RN RN dw Williams, Irene, RN RN iw Nieto, Roman, MD MD rn Landell, Sophia, RN RN sl2 Corrections: (The following items were deleted from the chart) 15:08 13:08 basilio griffin
[2021-06-30] MEDS ORDERED: NA CHLORIDE 0.9% 1,000 ML ONE (13:23)
[2021-06-30] MEDS ORDERED: ONDANSETRON 4 MG/2 ML VIAL ONE (13:23)
--- NOTE | 2021-06-30 14:43 | P.HP ---
Certification for Inpatient Patient admitted to: Observation With expected LOS: <2 Midnights Practitioner: I am a practitioner with admitting privileges, knowledge of patient current condition, hospital course, and medical plan of care. Services: Services provided to patient in accordance with Admission requirements found in Title 42 Section 412.3 of the Code of Federal Regulations Patient History Date of Service: 06/30/21 Reason for admission: Diarrhea and vomiting History of Present Illness: 60-year-old gentleman with a history of diabetes and hypertension presented to the emergency department with a complaint of 4 days of nausea vomiting and diarrhea. Patient stated everything he vomited almost everything ate or drink or goes through him over the past 4 days. He reports diarrhea all day yesterday. He was in the emergency department yesterday where he was treated with IV fluid and discharged. He informed his PCP Dr. Aguiar because his symptoms persisted who advised him to come to the emergency department for hospitalization. Blood work done in the emergency department shows borderline hypoglycemia and elevated bilirubin. CT abdomen and pelvis done in the e mergency department suggested gastritis and enteritis. Patient hospitalized for further management. Allergies Sulfa (Sulfonamide Antibiotics) Allergy (Verified 03/03/13 04:07) Anaphylaxis Home Medications: Esomeprazole Mag Trihydrate [Nexium] 40 mg PO DAILY 03/03/13 lisinopriL [Prinivil*] 20 mg PO DAILY 03/03/13 Aspirin 1 tab PO DAILY 06/30/21 Atorvastatin Calcium 1 tab PO DAILY 06/30/21 Celecoxib 1 tab PO DAILY 06/30/21 Clopidogrel Bisulfate [Plavix] 1 tab PO DAILY 06/30/21 Glimepiride 1 tab PO BID 06/30/21 Isosorbide Mononitrate [Isosorbide Mononitrate ER] 1 tab PO DAILY 06/30/21 Metoprolol Tartrate 12.5 tab PO DAILY 06/30/21 Omeprazole [Prilosec] 1 cap PO DAILY 06/30/21 Tamsulosin [Flomax*] 1 tab PO DAILY 06/30/21 - Past Medical/Surgical History Diabetic: Yes -: HTN -: Diabetes mellitus type 2 -: APPY -: HERNIA REPAIR -: RELEASES BILAT WRIST -: RIGHT ROTATED CUFF REPAIR -: SINUS SX -: LEFT SHOULDER REPLACEMENT - Family History Father -: Heart disease, Cancer (Stomach) - Social History Smoking Status: Never smoker Alcohol use: No CD- Drugs: No Caffeine use: Yes Review of Systems Other: Patient denied any fever. He endorsed intermittent abdominal pain. He denied any headache or chest pain or shortness of breath. Except as documented, all other systems reviewed and negative. Physical Examination - Physical Exam General: Alert, In no apparent distress, Oriented x3 HEENT: Mucous membr. moist/pink, Sclerae nonicteric Neck: Supple, JVD not distended Respiratory: Clear to auscultation bilaterally, Normal air movement Cardiovascular: No edema, Regular rate/rhythm, Normal S1 S2, No murmurs Capillary refill: <2 Seconds Gastrointestinal: Normal bowel sounds, Soft and benign, Non-distended, No tenderness Musculoskeletal: No swelling, No tenderness Integumentary: No rashes, No erythema Neurological: Normal speech, Normal strength at 5/5 x4 extr, Cranial nerves 3-12 intact Lymphatics: No axilla or inguinal lymphadenopathy - Studies Laboratory Data (last 24 hrs) 06/30/21 11:25: WBC 11.50 H D, Hgb 16.0, Hct 48.8, Plt Count 281 06/30/21 11:25: Sodium 140, Potassium 4.0, BUN 24 H, Creatinine 1.15, Glucose 146 H, Total Bilirubin 1.6 H, AST 20, ALT 22, Alkaline Phosphatase 99, Lipase 345 Assessment and Plan - Problems (Diagnosis) (1) Acute gastroenteritis Current Visit: Yes Status: Acute (2) Diabetes mellitus type 2 in nonobese Current Visit: Yes Status: Acute (3) Hyperbilirubinemia Current Visit: Yes Status: Acute (4) Hypertension Current Visit: Yes Status: Acute - Plan Placed under observation. Supportive measures with IV fluid. Start IV Flagyl and ciprofloxacin Clear liquid diet and advance diet as tolerated. Insulin sliding scale for glucose management and hold glimepiride. Continue home antihypertensives. Monitor renal function. No sepsis. - Advance Directives Does patient have a Living Will: No Does patient have a Durable POA for Healthcare: No
[2021-06-30] MEDS ORDERED: MORPHINE 2 MG/ML SYR IV PRN (16:40)
[2021-06-30] MEDS ORDERED: ACETAMINOPHEN 500 MG TAB PO PRN (16:40)
[2021-06-30] MEDS ORDERED: ONDANSETRON 4 MG/2 ML VIAL IV PRN (16:40)
[2021-06-30 17:08] VITALS: BMI 28.5
[2021-06-30] MEDS: NA CHLORIDE 0.9% 1,000 ML IV SCH (18:02)
[2021-06-30] MEDS: METRONIDAZOLE 500mg IVPB 500 MG/100 ML BAG IV SCH (18:02)
[2021-06-30] MEDS: ENOXAPARIN 40 MG/0.4 ML SQ SCH (18:03)
[2021-06-30] MEDS ORDERED: D50W 25 GM/50 ML SYRINGE IV PRN (19:34)
[2021-06-30] MEDS ORDERED: GLUCAGON 1 MG/VIAL IM PRN (19:34)
[2021-06-30] MEDS ORDERED: INFLUENZA VACCINE (for 6+ mo) 0.5 ML DOSE IMVAC ONE (20:00)
[2021-06-30] MEDS: CIPROFLOXACIN 400mg IV 400 MG/200 ML BAG IV SCH (20:11)
[2021-06-30] MEDS: INSULIN -REGULAR HUMAN 50 UNIT/0.5 ML ML SQ SCH (20:13)
[2021-06-30 20:25] LABS: Urine Appearance CLEAR (Clear); Urine Bilirubin NEGATIVE (Negative); Urine Blood NEGATIVE (Negative); Urine Color YELLOW (Yellow); Urine Glucose NEGATIVE (Negative); Urine Protein NEGATIVE (Negative); Urine Specific Gravity >=1.030 (1.005-1.030); Urine Urobilinogen 0.2 mg/dL (0.2-1.0); Urine pH 5.5 (5.0-7.0)
[2021-06-30 20:29] LABS: Urine Microscopic Reflex NO UMIC
[2021-07-01] MEDS: METRONIDAZOLE 500mg IVPB 500 MG/100 ML BAG IV SCH ×2 (01:01→07:54)
[2021-07-01] MEDS: NA CHLORIDE 0.9% 1,000 ML IV SCH ×2 (01:01→09:27)
[2021-07-01 06:19] LABS: Absolute Lymphocytes (CBC) 2.1 K/uL (0.7-4.9); Basophils % 0.3 % (0-1.3); Hematocrit 44.8 % (39.6-49.0); Lymphocytes % 26.9 % (15.3-44.8); MPV 7.3 fL (7.6-11.3); RBC Red Blood Cell Count 4.93 M/uL (4.33-5.43)
[2021-07-01 06:50] LABS: Albumin 3.4 g/dL (3.4-5.0); Bilirubin Total 1.5 mg/dL (0.2-1.0); Magnesium 1.6 mg/dL (1.8-2.4); Phosphorus 2.9 mg/dL (2.5-4.9); Potassium 4.1 mmol/L (3.5-5.1); Protein, Total 6.5 g/dL (6.4-8.2)
[2021-07-01] MEDS: INSULIN -REGULAR HUMAN 50 UNIT/0.5 ML ML SQ SCH ×2 (07:30→11:30)
[2021-07-01] MEDS: ENOXAPARIN 40 MG/0.4 ML SQ SCH (07:54)
[2021-07-01] MEDS: CIPROFLOXACIN 400mg IV 400 MG/200 ML BAG IV SCH (07:54)
[2021-07-01] MEDS ORDERED: MAGNESIUM SULFATE 1 gm IVPB 1 GM/100 ML BAG IV ONE (08:00)
[2021-07-01 08:05] VITALS: O2SAT 98
[2021-07-01] MEDS ORDERED: CLOPIDOGREL 75 MG TABLET PO SCH (09:08)
[2021-07-01] MEDS ORDERED: ASPIRIN 325 MG TAB PO SCH (09:08)
[2021-07-01] MEDS ORDERED: HOME MED 1 EA UNK (Esomeprazole Mag Trihydrate [Nexium] 40 MG Capsule.Dr) PO SCH (09:09)
[2021-07-01] MEDS ORDERED: ISOSORBIDE MONO SR 30 MG TAB PO SCH (09:09)
[2021-07-01] MEDS ORDERED: PANTOPRAZOLE 40MG TABLET PO SCH (09:15)
[2021-07-01] MEDS ORDERED: lisinopriL 20 MG TAB PO SCH (13:08)
--- NOTE | 2021-07-01 13:30 | P.DS ---
Admission Date: 06/30/21 Discharge Date: 07/01/21 Disposition: ROUTINE DISCHARGE Discharge Condition: FAIR Reason for Admission: Diarrhea and vomiting - Problems (1) Acute gastroenteritis Current Visit: Yes Status: Acute (2) Diabetes mellitus type 2 in nonobese Current Visit: Yes Status: Acute (3) Hyperbilirubinemia Current Visit: Yes Status: Acute (4) Hypertension Current Visit: Yes Status: Acute Brief History of Present Illness: 60-year-old gentleman with a history of diabetes and hypertension presented to the emergency department with a complaint of 4 days of nausea vomiting and diarrhea. Patient stated everything he vomited almost everything ate or drink or goes through him over the past 4 days. He reports diarrhea all day yesterda y. He was in the emergency department yesterday where he was treated with IV fluid and discharged. He informed his PCP Dr. Aguiar because his symptoms persisted who advised him to come to the emergency department for hospitalization. Blood work done in the emergency department shows borderline hypoglycemia and elevated bilirubin. CT abdomen and pelvis done in the emergency department suggested gastritis and enteritis. Patient hospitalized for further management. Hospital Course: Patient placed in observation on the medical floor and treated with supportive measures including IV fluids. Also treated with IV ciprofloxacin and Flagyl for acute gastroenteritis. Patient's symptoms resolved. No nausea or vomiting. He had only one small episode of diarrhea. He denied any abdominal pain. He tolerated liquid diet and soft diet. Patient states his symptoms have resolved. He is deemed stable for discharge. Patient is discharged with oral ciprofloxacin and Flagyl to continue treatment for acute infective gastroenteritis. Vital Signs/Physical Exam: Temp Pulse Resp BP Pulse Ox 97.1 F 65 16 150/80 H 98 07/01/21 08:00 07/01/21 09:41 07/01/21 08:00 07/01/21 09:41 07/01/21 08:00 General: Alert, In no apparent distress, Oriented x3 HEENT: Mucous membr. moist/pink Respiratory: Clear to auscultation bilaterally, Normal air movement Cardiovascular: Regular rate/rhythm Gastrointestinal: Normal bowel sounds, Soft and benign, Non-distended, No tenderness Musculoskeletal: No swelling Integumentary: No rashes Neurological: Normal speech, Normal strength at 5/5 x4 extr Laboratory Data at Discharge: WBC 8.00 K/uL (4.3-10.9) D 07/01/21 05:18 Hgb 14.8 g/dL (13.6-17.9) 07/01/21 05:18 Hct 44.8 % (39.6-49.0) 07/01/21 05:18 Plt Count 239 K/uL (152-406) 07/01/21 05:18 Sodium 145 mmol/L (136-145) 07/01/21 05:18 Potassium 4.1 mmol/L (3.5-5.1) 07/01/21 05:18 BUN 13 mg/dL (7-18) 07/01/21 05:18 Creatinine 0.97 mg/dL (0.55-1.3) 07/01/21 05:18 Glucose 77 mg/dL (74-106) 07/01/21 05:18 Phosphorus 2.9 mg/dL (2.5-4.9) 07/01/21 05:18 Magnesium 1.6 mg/dL (1.8-2.4) L 07/01/21 05:18 Total Bilirubin 1.5 mg/dL (0.2-1.0) H 07/01/21 05:18 AST 17 U/L (15-37) 07/01/21 05:18 ALT 14 U/L (12-78) 07/01/21 05:18 Alkaline Phosphatase 85 U/L (45-117) 07/01/21 05:18 Lipase 345 U/L (73-393) 06/30/21 11:25 Home Medications: Esomeprazole Mag Trihydrate [Nexium] 40 mg PO DAILY 03/03/13 lisinopriL [Prinivil*] 20 mg PO DAILY 03/03/13 Aspirin 1 tab PO DAILY 06/30/21 Atorvastatin Calcium 1 tab PO DAILY 06/30/21 Celecoxib 1 tab PO DAILY 06/30/21 Clopidogrel Bisulfate [Plavix] 1 tab PO DAILY 06/30/21 Glimepiride 1 tab PO BID 06/30/21 Isosorbide Mononitrate [Isosorbide Mononitrate ER] 1 tab PO DAILY 06/30/21 Metoprolol Tartrate 12.5 tab PO DAILY 06/30/21 Tamsulosin [Flomax*] 1 tab PO DAILY 06/30/21 Ciprofloxacin HCl [Cipro 500 MG Tablet] 500 mg PO BID #10 tab 07/01/21 metroNIDAZOLE [Flagyl] 500 mg PO Q8H #15 tablet 07/01/21 New Medications: Ciprofloxacin HCl [Cipro 500 MG Tablet] 500 mg PO BID #10 tab metroNIDAZOLE [Flagyl] 500 mg PO Q8H #15 tablet Diet: ADA Activity: Ad kaur Followup: London Aguiar MD [Primary Care Provider] - 1-2 Weeks
[2021-07-01 13:32] VITALS: BP 144/88
[2021-07-01] MEDS ORDERED: METOPROLOL TAR 25 MG TAB PO SCH (14:00)
[2021-07-01 14:05] VITALS: TEMP 98
[2021-07-01] MEDS ORDERED: TAMSULOSIN 0.4 MG SR CAP PO SCH (21:00)
[2021-07-01] MEDS ORDERED: ATORVASTATIN 40 MG TAB PO SCH (21:00)
--- OUTSIDE RECORDS SUMMARY | 2021-07-09 11:19 | XMS REPORT | Continuity of Care Document ---
:1960 Author Organization [facility] t Address [address] [place] [address] Care Team Providers Name Role Phone Hemant Attending Clinician Unavailable Corwin Attending Clinician Unavailable SAVANNA LUIS Attending Clinician Unavailable Yandel Gu Attending Clinician Unavailable UNKNOWN Attending Clinician Unavailable SCARLETT HUA Attending Clinician Unavailable Hemant Admitting Clinician Unavailable Yandel Gu Admitting Clinician Unavailable JAVID Admitting Clinician Unavailable Payers Payer Name Policy Type Policy Number Effective Date Expiration Date S kristina [facility] [id number] 2017 00:00:00 Problems This patient has no known problems. Allergies, Adverse Reactions, Alerts Allergy Allergy Status Severity Reaction(s) Onset Inactive Treating Comm ents Source Name Type Date Date Clinician CLOPIDOG DRUG Active High Rash 2020-0 [facility] REL INGREDI 7-13 ity of 00:00: [address] AMIODARO DRUG Active High Rash 2020-0 [facility] NE INGREDI 7-13 ity of 00:00: [address] Sulfa DA Active SV 2020-0 [facility] ([place] [facility] 00[facility]: [place] [facility] Center Sulfa DA Active SV JAUNDICE 0 [facility] ([place] [facility] [place] [facility] 00:[facility]: [place] [facility] Center SULFA Drug Active High Unknown-Cmnt Univ ers (SULFONA Class 2-04 ity of MIDE 00:00: [place] ANTIBIOT 00 Medical ICS) Branch Salicyla DA Active U [facility] malgorzata 02-15 [place] 00:00: [facility] 00 [facility] Pyrazolo DA Active U [facility] nicci 02-15 [place] 00:00: [facility] 00 [facility] NSAIDS DA Active U [facility] (Non-Daljit 02-15 [place] roidal 00:00: [facility] Anti-Inf 00 dic lamma Hospita l diclofen DA Active U [facility] ac 02-15 [place] 00:00: Orthope 00 dic Hospita l NO KNOWN Drug Active Univers ALLERGIE Class ity of [facility] Medications This patient has no known medications. Procedures Procedure Date / Time Performed Performing Clinician [facility] howie [id number] 2021-01-21 00:00:00 [facility] [id number] 2021-01-21 00:00:00 [facility] [id number] 2021-01-21 00:00:00 [facility] [id number] 2021-01-21 00:00:00 [facility] [id number] 2021-01-21 00:00:00 [facility] [id number] 2021-01-21 00:00:00 [facility] [id number] 2021-01-21 00:00:00 [facility] [id number] 2021-01-21 00:00:00 [facility] [id number] 2021-01-15 00:00:00 [facility] [id number] 2021-01-15 00:00:00 [facility] Encounters Start End Encounter Admission Attending Care Care Encounter Source Date/Time Date/Time Type Type Clinicians Facility Department ID 2021-06-13 Inpatient JOANNA Marcos [facility] [id number] [facility] 09:14:[address] [facility] 2021-02-14 Inpatient PHILOMENA Olivia [id number] [facility] 07:30:00 Momo [id number] [place] [facility] 2021-03-08 2021-03-08 Outpatient R TOBY [facility] [id number] Univers 12:30:00 12:30:00 DION shine [facility] 2021-01-31 2021-02-02 Inpatient EM Brittanie HCAWU MED [id number] [facility] 15:28:00 14:07:[id number] [facility] 2021-01-31 2021-02-02 Inpatient EM Brittanie [facility] MED [id number] [facility] 15:28:00 14:07:[id number] [facility] 2021-01-30 2021-01-30 Inpatient EM Brittanie [facility] MED [id number] [facility] 22:32:00 22:31:[id number] [facility] 2021-01-14 2021-01-29 Inpatient UR Hemant HCAWU INTE [id number] [facility] 10:28:00 12:52:[id number] [facility] 2021-01-24 2021-01-24 Outpatient UNKNOWN HCANW REF [id number] [facility] 07:50:00 07:50:00 [id number] [facility] Results Test Description Test Time Test Comments Results Result Comments Source GLUCOSE BEDSIDE TESTING 2021-02-02 11:06:00 Test Item Value Reference Range Interpretation Comme nts GLUCOSE BEDSIDE TESTING (test code = GLUBED) 311 MG/DL 60-99 HH GLUCOSE BEDSIDE [id number] 07:08:00 Test Item Value Reference Range Interpretation Comments GLUCOSE BEDSIDE TESTING (test code 255 MG/DL 60-99 H = GLUBED) GLUCOSE BEDSIDE [id number] 19:38:00 Test Item Value Reference Range Interpretation Comments GLUCOSE BEDSIDE TESTING (test code 379 MG/DL 60-99 HH = GLUBED) GLUCOSE BEDSIDE [id number] 15:12:00 Test Item Value Reference Range Interpretation Comments GLUCOSE BEDSIDE TESTING (test code 328 MG/DL 60-99 HH = GLUBED) GLUCOSE BEDSIDE [id number] 11:42:00 Test Item Value Reference Range Interpretation Comments GLUCOSE BEDSIDE TESTING (test code 275 MG/DL 60-99 H = GLUBED) GLUCOSE BEDSIDE [id number] 07:09:00 Test Item Value Reference Range Interpretation Comments GLUCOSE BEDSIDE TESTING (test code 136 MG/DL 60-99 H = GLUBED) GLUCOSE BEDSIDE [id number] 05:17:00 Test Item Value Reference Range Interpretation Comments GLUCOSE BEDSIDE TESTING (test code 227 MG/DL 60-99 H = GLUBED) GLUCOSE BEDSIDE [id number] 19:32:00 Test Item Value Reference Range Interpretation Comments GLUCOSE BEDSIDE TESTING (test code 319 MG/DL 60-99 HH = GLUBED) GLUCOSE BEDSIDE [id number] 17:19:00 Test Item Value Reference Range Interpretation Comments GLUCOSE BEDSIDE TESTING (test code 267 MG/DL 60-99 H = GLUBED) GLUCOSE BEDSIDE [id number] 11:32:00 Test Item Value Reference Range Interpretation Comments GLUCOSE BEDSIDE TESTING (test code 350 MG/DL 60-99 HH = GLUBED) GLUCOSE BEDSIDE [id number] 07:18:00 Test Item Value Reference Range Interpretation Comments GLUCOSE BEDSIDE TESTING (test code 252 MG/DL 60-99 H = GLUBED) BASIC METABOLIC [id number] 00:40:00 Test Item Value Reference Range Interpretation [...] 8.3 MG/DL 8.4-10.2 L CA) CBC W/AUTO [id number] 00:29:00 Test Item Value Reference Range Interpretation [...] 0.00 K/mm3 0.0-0.1 N NRBC#) GLUCOSE BEDSIDE [id number] 07:42:00 Test Item Value Reference Range Interpretation Comments GLUCOSE BEDSIDE TESTING (test code 213 MG/DL 60-99 H = GLUBED) GLUCOSE BEDSIDE [id number] 11:22:00 Test Item Value Reference Range Interpretation Comments GLUCOSE BEDSIDE TESTING (test code 268 MG/DL 60-99 H = GLUBED) GLUCOSE BEDSIDE [id number] 08:39:00 Test Item Value Reference Range Interpretation Comments GLUCOSE BEDSIDE TESTING (test code 216 MG/DL 60-99 H = GLUBED) GLUCOSE BEDSIDE [id number] 15:42:00 Test Item Value Reference Range Interpretation Comments GLUCOSE BEDSIDE TESTING (test code 295 MG/DL 60-99 H = GLUBED) GLUCOSE BEDSIDE [id number] 07:38:00 Test Item Value Reference Range Interpretation Comments GLUCOSE BEDSIDE TESTING (test code 229 MG/DL 60-99 H = GLUBED) BASIC METABOLIC [id number] 04:43:00 Test Item Value Reference Range Interpretation [...] 8.3 MG/DL 8.4-10.2 L CA) CBC W/AUTO [id number] 04:27:00 Test Item Value Reference Range Interpretation [...] = 0.00 K/mm3 0.0-0.1 N NRBC#) DIFFERENTIAL [id number] 04:27:00 Test Item Value Reference Range Interpretation Comments RBC MORPHOLOGY REQUIRED (test code = RBCM) PLATELET ESTIMATE (test code = PLTEST) ADEQUATE PLATELET MORPHOLOGY (test code = NORMAL PLTMORPH) CBC W/AUTO [id number] 04:27:00 Test Item Value Reference Range Interpretation [...] = 0.00 K/mm3 0.0-0.1 N NRBC#) DIFFERENTIAL [id number] 04:27:00 Test Item Value Reference Range Interpretation Comments RBC MORPHOLOGY REQUIRED (test code = RBCM) PLATELET ESTIMATE (test code = PLTEST) ADEQUATE PLATELET MORPHOLOGY (test code = NORMAL PLTMORPH) GLUCOSE BEDSIDE [id number] 20:06:00 Test Item Value Reference Range Interpretation Comments GLUCOSE BEDSIDE TESTING (test code 298 MG/DL 60-99 H = GLUBED) GLUCOSE BEDSIDE [id number] 17:13:00 Test Item Value Reference Range Interpretation Comments GLUCOSE BEDSIDE TESTING (test code 215 MG/DL 60-99 H = GLUBED) GLUCOSE BEDSIDE [id number] 11:39:00 Test Item Value Reference Range Interpretation Comments GLUCOSE BEDSIDE TESTING (test code 247 MG/DL 60-99 H = GLUBED) GLUCOSE BEDSIDE [id number] 08:13:00 Test Item Value Reference Range Interpretation Comments GLUCOSE BEDSIDE TESTING (test code 209 MG/DL 60-99 H = GLUBED) GLUCOSE BEDSIDE [id number] 21:27:00 Test Item Value Reference Range Interpretation Comments GLUCOSE BEDSIDE TESTING (test code 217 MG/DL 60-99 H = GLUBED) GLUCOSE BEDSIDE [id number] 16:26:00 Test Item Value Reference Range Interpretation Comments GLUCOSE BEDSIDE TESTING (test code 205 MG/DL 60-99 H = GLUBED) CBC W/AUTO [id number] 12:18:00 Test Item Value Reference Range Interpretation [...] 0.00 K/mm3 0.0-0.1 N NRBC#) Comments to Hospital Housekeeper: USE BLOOD RECENTLY COLLECTED IF POSSIBLEIs this a LINE draw? YGLUCOSE BEDSIDE [id number] 11:33:00 Test Item Value Reference Range Interpretation Comments GLUCOSE BEDSIDE TESTING (test code 235 MG/DL 60-99 H = GLUBED) BASIC METABOLIC [id number] 10:34:00 Test Item Value Reference Range Interpretation [...] code = 8.3 MG/DL 8.4-10.2 L CA) [id number] 10:34:00 Test Item Value Reference Range Interpretation Comments MAGNESIUM (test code = MAG) 1.8 MG/DL 1.6-2.3 N - XR CHEST [id number] 08:38:00 [facility] 1960 Sex: M Patient Name: JUSTICE MARS Unit No: [id number] EXAMS: CPT CODE: [id number] XR CHEST 1V 28490 EXAMINATION: - XR CHEST 1V. LOCATION: B2. [...] GioR.PR7 Orig Print D/T: S: 01/26/2021 (0841) [facility] NAME: JUSTICE MARS [id number] PHYS: [place] [address] : 1960 AGE: 60 SEX: M LOC: UNK PHONE #: [phone] EXAM DATE: 01/26/2021 STATUS: DIS IN FAX #: [phone] RADIOLOGY NO: PAGE 1 Signed Report- XR CHEST [id number] 08:38:00[facility] : 1960 Sex: M Patient Name: JUSTICE MARS Unit No: [id number] EXAMS: CPT CODE: [id number] XR CHEST 1V 45133 EXAMINATION: - XR CHEST 1V. LOCATION: B2. [...] Print D/T: S: 01/26/2021 (0841) [facility] NAME: JUSTICE MARS [id number] PHYS: [place] [address] : 1960 AGE: 60 SEX: M LOC: Z.SI01 A PHONE #: [phone] EXAM DATE: 01/26/2021 STATUS: ADM IN FAX #: [phone] RADIOLOGY NO: PAGE 1 Signed ReportGLUCOSE BEDSIDE TESTING 2021-01-26 07:30:00 Test Item Value Reference Range Interpretation Comments GLUCOSE BEDSIDE TESTING (test code 179 MG/DL 60-99 H = GLUBED) GLUCOSE BEDSIDE [id number] 20:18:00 Test Item Value Reference Range Interpretation Comments GLUCOSE BEDSIDE TESTING (test code 189 MG/DL 60-99 H = GLUBED) GLUCOSE BEDSIDE [id number] 16:09:00 Test Item Value Reference Range Interpretation Comments GLUCOSE BEDSIDE TESTING (test code 208 MG/DL 60-99 H = GLUBED) POC ARTERIAL BLOOD [id number] 12:10:00 Test Item Value Reference Range Interpretation Comments POC ARTERIAL BLOOD GAS PH 7.346 7.35-7.45 L (test code = POCPHA) POC ARTERIAL BLOOD GAS PCO2 46.2 mmHg 35.0-45.0 H (test code = VTWGSU2X) POC ARTERIAL BLOOD GAS PO2 377.8 75.0-100.0 HH (test code = PLLYE1R) POC HCO3 ARTERIAL (test 25.3 MMOL/L 20.0-26.0 N code = RPWVST5P) POC BASE EXCESS (test code -0.9 MMOL/L [...] 0.7-2.0 N = LACTP) POC ARTERIAL BLOOD [id number] 12:09:00 Test Item Value Reference Range Interpretation Comments POC ARTERIAL BLOOD GAS PH 7.405 7.35-7.45 N (test code = POCPHA) POC ARTERIAL BLOOD GAS PCO2 38.9 mmHg 35.0-45.0 N (test code = SCNSDU2Z) POC ARTERIAL BLOOD GAS PO2 362.3 75.0-100.0 HH (test code = MZVYR8M) POC HCO3 ARTERIAL (test 24.4 MMOL/L 20.0-26.0 N code = KXJISL3I) POC BASE EXCESS (test code -0.3 MMOL/L [...] 0.7-2.0 N = LACTP) POC ARTERIAL BLOOD [id number] 12:09:00 Test Item Value Reference Range Interpretation Comments POC ARTERIAL BLOOD GAS PH 7.335 7.35-7.45 L (test code = POCPHA) POC ARTERIAL BLOOD GAS PCO2 44.9 mmHg 35.0-45.0 N (test code = VEFDZE2T) POC ARTERIAL BLOOD GAS PO2 626.8 75.0-100.0 HH (test code = DDEOG3P) POC HCO3 ARTERIAL (test 24.0 MMOL/L 20.0-26.0 N code = WQVDNQ3B) POC BASE EXCESS (test code -1.9 MMOL/L [...] mmol/L 0.7-2.0 N = LACTP) GLUCOSE BEDSIDE [id number] 11:55:00 Test Item Value Reference Range Interpretation Comments GLUCOSE BEDSIDE TESTING (test code 218 MG/DL 60-99 H = GLUBED) GLUCOSE BEDSIDE [id number] 10:19:00 Test Item Value Reference Range Interpretation Comments GLUCOSE BEDSIDE TESTING (test code 170 MG/DL 60-99 H = GLUBED) - XR CHEST [id number] 07:58:00 [facility] : 1960 Sex: M Patient Name: JUSTICE MARS Unit No: [id number] EXAMS: CPT CODE: [id number] XR CHEST 1V 27505 EXAMINATION: - XR CHEST 1V HISTORY: Postop [...] t.SDR.AG38 Orig Print D/T: S: 01/25/2021 (08) [facility] NAME: JUSTICE MARS [id number] PHYS: [place] [address] : 1960 AGE: 60 SEX: M LOC: K PHONE #: [phone] EXAM DATE: 01/25/2021 STATUS: DIS IN FAX #: [phone] RADIOLOGY NO: PAGE 1 Signed Report- XR CHEST 1V 2021-01-25 07:58:00 [facility] : 1960 Sex: M Patient Name: JUSTICE MARS Unit No: [id number] EXAMS: CPT CODE: [id number] XR CHEST 1V 05194 EXAMINATION: - XR CHEST 1V HISTORY: Postop [...] t.SDR.AG38 Orig Print D/T: S: 01/25/2021 (08) [facility] NAME: JUSTICE MARS [id number] PHYS: [place] [address] : 1960 AGE: 60 SEX: M LOC: Z.SI01 A PHONE #: [phone] EXAM DATE: 01/25/2021 STATUS: ADM IN FAX #: [phone] RADIOLOGY NO: PAGE 1 Signed ReportGLUCOSE BEDSIDE [id number] 07:41:00 Test Item Value Reference Range Interpretation Comments GLUCOSE BEDSIDE TESTING (test code 160 MG/DL 60-99 H = GLUBED) GLUCOSE BEDSIDE [id number] 20:43:00 Test Item Value Reference Range Interpretation Comments GLUCOSE BEDSIDE TESTING (test code 220 MG/DL 60-99 H = GLUBED) GLUCOSE BEDSIDE [id number] 18:00:00 Test Item Value Reference Range Interpretation Comments GLUCOSE BEDSIDE TESTING (test code 135 MG/DL 60-99 H = GLUBED) HEPARIN INDUCED [id number] 14:54:00 Test Item Value Reference Range Interpretation [...] the 4T score an d the 2013 [employer] guidelines. NEG ATIVE results [...] AT 1906 BY Gabriella Leonard AnHEPARIN INDUCED [id number] 14:53:00 Test Item Value Reference Range Interpretation [...] the 4T score and the 2 013 [employer] Hematology guid elines. NEGATIVE result [...] 1906 BY Gabriella Leonard An- XR CHEST [id number] 10:51:00 [facility] : 1960 Sex: M Patient Name: JUSTICE MARS Unit No: [id number] EXAMS: CPT CODE: [id number] XR CHEST 1V 30701 CHEST 1 VIEW: INDICATION: CHEST TUBE REMOVAL [...] Sergio Jacobs (RT) Transcrpt Date/Tm/Trnsp: 01/24/2021 (1051) t.PRISCILLAR.ZN79Akkg Print D/T: S: 01/24/2021 (2885) [facility] NAME: JUSTICE MARS [id number] PHYS: [place] [address] : 1960 AGE: 60 SEX: M LOC: UNK PHONE #: [phone] EXAM DATE: 01/24/2021 STATUS: DIS IN FAX #: [phone] RADIOLOGY NO: PAGE 1 Signed Report- XR CHEST [id number] 10:51:00 [facility] : 1960 Sex: M Patient Name: JUSTICE MARS Unit No: [id number] EXAMS: CPT CODE: [id number] XR CHEST 1V 20712 CHEST 1 VIEW: INDICATION: CHEST TUBE REMOVAL [...] Sergio Jacobs (RT) Transcrpt Date/Tm/Trnsp: 01/24/2021 (1051) [id number] Print D/T: S: 01/24/2021 (2685) [facility] NAME: JUSTICE MARS [id number] PHYS: [place] [address] : 1960 AGE: 60 SEX: M LOC: Z.SI01 A PHONE #: [phone] EXAM DATE: 01/24/2021 STATUS: ADM IN FAX #: [phone] RADIOLOGY NO: PAGE 1 Signed ReportPO ARTERIAL BLOOD [id number] 07:50:00 Test Item Value Reference Range Interpretation Comments POC ARTERIAL BLOOD GAS PH 7.436 7.35-7.45 N (test code = POCPHA) POC ARTERIAL BLOOD GAS PCO2 30.7 mmHg 35.0-45.0 L (test code = CADDWH6T) POC ARTERIAL BLOOD GAS PO2 222.7 75.0-100.0 HH (test code = MQXEL8R) POC HCO3 ARTERIAL (test 20.7 MMOL/L 20.0-26.0 N code = JIBOZL1X) POC BASE EXCESS (test code -3.2 MMOL/L -3.0-3.0 L = POCBEA) POC O2 SATURATION (test 99.8 % 92.0-98.5 H code = POCO2S) FIO2 (test code = FIO2A) 80 % 21-100 N PaO2/FiO2 (test code = 278.37 mm/Hg QIQ7EWE3) SODIUM (test code = NA/ABG) 141 MMOL/L [...] mmol/L 0.7-2.0 HH = LACTP) GLUCOSE BEDSIDE [id number] 07:46:00 Test Item Value Reference Range Interpretation Comments GLUCOSE BEDSIDE TESTING (test code 141 MG/DL 60-99 H = GLUBED) BASIC METABOLIC [id number] 07:26:00 Test Item Value Reference Range Interpretation [...] 8.6 MG/DL 8.4-10.2 N CA) CBC W/AUTO [id number] 07:12:00 Test Item Value Reference Range Interpretation [...] 0.00 K/mm3 0.0-0.1 N NRBC#) - CHEST [id number] 06:52:00 [facility] : 1960 Sex: M Patient Name: JUSTICE MARS Unit No: [id number] EXAMS: CPT CODE: [id number] XR CHEST 1V 04543 EXAM: CHEST ONE VIEW INDICATION: S/P CABG [...] 16 Orig Print D/T: S: 01/24/2021 (0655) [facility] NAME: JUSTICE MARS [id number] PHYS: [place] [address] : 1960 AGE: 60 SEX: M LOC: [facility] PHONE #: [phone] EXAM DATE: 01/24/2021 STATUS: DIS IN FAX #: [phone] RADIOLOGY NO: PAGE 1 Signed Report- XR CHEST [id number] 06:52:00 [facility] : 1960 Sex: M Patient Name: JUSTICE MARS Unit No: [id number] EXAMS: CPT CODE: [id number] XR CHEST 1V 02311 EXAM: CHEST ONE VIEW INDICATION: S/P CABG [...] 16 Orig Print D/T: S: 01/24/2021 (0655) [facility] NAME: JUSTICE MARS [id number] PHYS: [place] [address] : 1960 AGE: 60 SEX: M LOC: Z.SI02 A PHONE #: [phone] EXAM DATE: 01/24/2021 STATUS: ADM IN FAX #: [phone] RADIOLOGY NO: PAGE 1 Signed ReportGLUCOSE BEDSIDE [id number] 06:28:00 Test Item Value Reference Range Interpretation Comments GLUCOSE BEDSIDE TESTING (test code 227 MG/DL 60-99 H = GLUBED) GLUCOSE BEDSIDE [id number] 06:28:00 Test Item Value Reference Range Interpretation Comments GLUCOSE BEDSIDE TESTING (test code 246 MG/DL 60-99 H = GLUBED) GLUCOSE BEDSIDE [id number] 06:28:00 Test Item Value Reference Range Interpretation Comments GLUCOSE BEDSIDE TESTING (test code 194 MG/DL 60-99 H = GLUBED) GLUCOSE BEDSIDE [id number] 06:27:00 Test Item Value Reference Range Interpretation Comments GLUCOSE BEDSIDE TESTING (test code 193 MG/DL 60-99 H = GLUBED) GLUCOSE BEDSIDE [id number] 06:27:00 Test Item Value Reference Range Interpretation Comments GLUCOSE BEDSIDE TESTING (test code 217 MG/DL 60-99 H = GLUBED) GLUCOSE BEDSIDE [id number] 06:27:00 Test Item Value Reference Range Interpretation Comments GLUCOSE BEDSIDE TESTING (test code 171 MG/DL 60-99 H = GLUBED) GLUCOSE BEDSIDE [id number] 20:37:00 Test Item Value Reference Range Interpretation Comments GLUCOSE BEDSIDE TESTING (test code 159 MG/DL 60-99 H = GLUBED) - XR CHEST [id number] 07:00:00 [facility] : 1960 Sex: M Patient Name: JUSTICE MARS Unit No: [id number] EXAMS: CPT CODE: [id number] XR CHEST 1V 62243 EXAM: CHEST ONE VIEW INDICATION: S/P CABG LOCATION: B2 COMPARISON: January 22, 2021 TECHNIQUE: AP view of the chest FINDINGS: The right-sided [place]aimie catheter has been removed. The right central [...] 16 Orig Print D/T: S: 01/23/2021 (0703) [facility] NAME: JUSTICE MARS [id number] PHYS: [place] [address] : 1960 AGE: 60 SEX: M LOC: UNK PHONE #: [phone] EXAM DATE: 01/23/2021 STATUS: DIS IN FAX #: [phone] RADIOLOGY NO: PAGE1 Signed Report- XR CHEST [id number] 07:00:00[facility] : 1960 Sex: M Patient Name: JSUTICE MRAS Unit No: [id number] EXAMS: CPT CODE: [id number] XR CHEST 1V 20051 EXAM: CHEST ONE VIEW INDICATION: S/P CABG LOCATION: B2 COMPARISON: January 22, 2021 TECHNIQUE: AP view of the chest FINDINGS: The right-sided [place]Jaimie catheter has been removed. The right central [...] 01/23/2021 (0703) [facility] NAME: JUSTICE MARS [address] PHYS: [place] [address] : 1960 AGE: 60 SEX: M LOC: Z.SI02 A PHONE #: [phone] EXAM DATE: 01/23/2021 STATUS: ADM IN FAX #: [phone] RADIOLOGY NO: PAGE1 Signed ReportBASIC METABOLIC PANEL [...] 8.1 MG/DL 8.4-10.2 L CA) CBC W/AUTO [id number] 04:01:00 Test Item Value Reference Range Interpretation [...] 0.00 K/mm3 0.0-0.1 N NRBC#) GLUCOSE BEDSIDE [id number] 19:48:00 Test Item Value Reference Range Interpretation Comments GLUCOSE BEDSIDE TESTING (test code 193 MG/DL 60-99 H = GLUBED) GLUCOSE BEDSIDE [id number] 16:43:00 Test Item Value Reference Range Interpretation Comments GLUCOSE BEDSIDE TESTING (test code 103 MG/DL 60-99 H = GLUBED) GLUCOSE BEDSIDE [id number] 15:24:00 Test Item Value Reference Range Interpretation Comments GLUCOSE BEDSIDE TESTING (test code 119 MG/DL 60-99 H = GLUBED) GLUCOSE BEDSIDE [id number] 14:05:00 Test Item Value Reference Range Interpretation Comments GLUCOSE BEDSIDE TESTING (test code 176 MG/DL 60-99 H = GLUBED) GLUCOSE BEDSIDE [id number] 12:55:00 Test Item Value Reference Range Interpretation Comments GLUCOSE BEDSIDE TESTING (test code 195 MG/DL 60-99 H = GLUBED) ARTERIAL BLOOD [id number] 11:56:00 Test Item Value Reference Range Interpretation [...] mated message] code = TEMPA) The system I[employer] generated this result transmit quoc reference range : 37. The reference r ana luisa was not used to interpret this result as normal/abnormal . ABG SITE (test code = AL SITEA) ALLENS TEST (test NA CHECK code = ALLENS) FIO2 (test code = 90 % COHBGFFIO2) PaO2/[id number] 11:56:00 Test Item Value Reference Range Interpretation Comments PaO2/FiO2 (test code = QCZ0NVJ6) mm/Hg ARTERIAL BLOOD [id number] 11:56:00 Test Item Value Reference Range Interpretation [...] mated message] code = TEMPA) The system [employer] generated this result transmit quoc reference range : 37. The reference r ana luisa was not used to interpret this result as normal/abnormal . ABG SITE (test code = AL SITEA) ALLENS TEST (test NA CHECK code = ALLENS) FIO2 (test code = 90 % COHBGFFIO2) PaO2/[id number] 11:56:00 Test Item Value Reference Range Interpretation Comments PaO2/FiO2 (test code = [id number]) 226.55 mm/Hg GLUCOSE BEDSIDE [id number] 11:43:00 Test Item Value Reference Range Interpretation Comments GLUCOSE BEDSIDE TESTING (test code 211 MG/DL 60-99 H = GLUBED) GLUCOSE BEDSIDE [id number] 10:36:00 Test Item Value Reference Range Interpretation Comments GLUCOSE BEDSIDE TESTING (test code 243 MG/DL 60-99 H = GLUBED) GLUCOSE BEDSIDE [id number] 09:11:00 Test Item Value Reference Range Interpretation Comments GLUCOSE BEDSIDE TESTING (test code 292 MG/DL 60-99 H = GLUBED) GLUCOSE BEDSIDE [id number] 07:54:00 Test Item Value Reference Range Interpretation Comments GLUCOSE BEDSIDE TESTING (test code 238 MG/DL 60-99 H = GLUBED) - XR CHEST [id number] 06:26:00 [facility] 1960 Sex: M Patient Name: JUSTICE MARS Unit No: [id number] EXAMS: CPT CODE: [id number] XR CHEST 1V [id number] EXAM: CHEST ONE VIEW INDICATION: S/P CABG LOCATION: B2 COMPARISON: January 21, 2021 TECHNIQUE: AP view of the chest FINDINGS: The endotracheal tube and enteric tube have been removed. The right central venous catheter and right [place] catheter unchanged in position. The heart size [...] 16 Orig Print D/T: S: 01/22/2021 (628) [facility] NAME: JUSTICE MARS [id number] [address] PHYS: [place] [address] : 1960 AGE: 60 SEX: M LOC: UNK PHONE #: [phone] EXAM DATE: 01/22/2021 STATUS: DIS IN FAX #: [phone] RADIOLOGY NO: PAGE 1Signed Report- XR CHEST [id number] 06:26:00 [facility] 1960 Sex: M Patient Name: JUSTICE MARS Unit No: [id number] EXAMS: CPT CODE: [id number] XR CHEST 1V 04290 EXAM: CHEST ONE VIEW INDICATION: S/P CABG LOCATION: B2 COMPARISON: January 21, 2021 TECHNIQUE: AP view of the chest FINDINGS: The endotracheal tube and enteric tube have been removed. The right central venous catheter and right [place]aim[place] catheter unchanged in position. The heart size [...] 16 Orig Print D/T: S: 01/22/2021 (628) [facility] NAME: JUSTICE MARS [id number] [address] PHYS: [place] [address] : 1960 AGE: 60 SEX: M LOC: Z.SI02 A PHONE #: [phone] EXAM DATE: 01/22/2021 STATUS: ADM IN FAX #: [phone] RADIOLOGY NO: PAGE 1Signed ReportGLUCOSE BEDSIDE [id number] 05:56:00 Test Item Value Reference Range Interpretation Comments GLUCOSE BEDSIDE TESTING (test code 212 MG/DL 60-99 H = GLUBED) GLUCOSE BEDSIDE [id number] 05:05:00 Test Item Value Reference Range Interpretation Comments GLUCOSE BEDSIDE TESTING (test code 164 MG/DL 60-99 H = GLUBED) CBC W/AUTO [id number] 05:04:00 Test Item Value Reference Range Interpretation [...] 0.00 K/mm3 0.0-0.1 N NRBC#) BASIC METABOLIC [id number] 05:02:00 Test Item Value Reference Range Interpretation [...] 8.5 MG/DL 8.4-10.2 N CA) GLUCOSE BEDSIDE [id number] 03:14:00 Test Item Value Reference Range Interpretation Comments GLUCOSE BEDSIDE TESTING (test code 218 MG/DL 60-99 H = GLUBED) GLUCOSE BEDSIDE [id number] 02:04:00 Test Item Value Reference Range Interpretation Comments GLUCOSE BEDSIDE TESTING (test code 217 MG/DL 60-99 H = GLUBED) GLUCOSE BEDSIDE [id number] 01:45:00 Test Item Value Reference Range Interpretation Comments GLUCOSE BEDSIDE TESTING (test code 220 MG/DL 60-99 H = GLUBED) GLUCOSE BEDSIDE [id number] 01:12:00 Test Item Value Reference Range Interpretation Comments GLUCOSE BEDSIDE TESTING (test code 223 MG/DL 60-99 H = GLUBED) GLUCOSE BEDSIDE [id number] 23:07:00 Test Item Value Reference Range Interpretation Comments GLUCOSE BEDSIDE TESTING (test code 232 MG/DL 60-99 H = GLUBED) GLUCOSE BEDSIDE [id number] 21:51:00 Test Item Value Reference Range Interpretation Comments GLUCOSE BEDSIDE TESTING (test code 254 MG/DL 60-99 H = GLUBED) BASIC METABOLIC [id number] 21:46:00 Test Item Value Reference Range Interpretation [...] 01/21/21 AT 1759 BY Gabriella Leonard AnPROTHROMBIN [id number] 21:40:00 Test Item Value Reference Range Interpretation [...] DRAW BLOOD, REASON: CBNNOTIFIED PATIENT CARE STAFF: [facility] 01/21/21 AT 175 BY Gabriella Leonard AnPTT [id number] 21:40:00 Test Item Value Reference Range Interpretation Comments PTT ACTIVATED (test code = APTT) 26.1 SECONDS 25.1-36.5 N UNABLE TO DRAW BLOOD, REASON: CBNNOTIFIED PATIENT CARE STAFF: [facility] 01/21/21 AT 175 BY Gabriella Leonard [id number] 21:38:00 Test Item Value Reference Range Interpretation Comments MAGNESIUM (test code = MAG) 1.5 MG/DL 1.6-2.3 L UNABLE TO DRAW BLOOD, REASON: CBNNOTIFIED PATIENT CARE STAFF: [facility] 01/21/21 AT 175 BY Gabriella Leonard AnCBC W/AUTO [id number] 21:37:00 Test Item Value Reference Range Interpretation [...] 01/21/21 AT 1759 BY Gabriella LeonardLUCOSE BEDSIDE [id number] 21:05:00 Test Item Value Reference Range Interpretation Comments GLUCOSE BEDSIDE TESTING (test code 227 MG/DL 60-99 H = GLUBED) GLUCOSE BEDSIDE [id number] 19:54:00 Test Item Value Reference Range Interpretation Comments GLUCOSE BEDSIDE TESTING (test code 284 MG/DL 60-99 H = GLUBED) GLUCOSE BEDSIDE [id number] 18:59:00 Test Item Value Reference Range Interpretation Comments GLUCOSE BEDSIDE TESTING (test code 195 MG/DL 60-99 H = GLUBED) - XR CHEST [id number] 18:08:00 [facility] : 1960 Sex: M Patient Name: JUSTICE MARS Unit No: [id number] EXAMS: CPT CODE: [id number] XR CHEST 1V 48387 LOCATION: Q15 HISTORY: 60-year-old male, status post [...] is in the stomach. The right IJ [place]aim[place] catheter tip is in the right main pulmonary arterial branch. A right squamous central line seen with the tip in the superior vena cava. Mediastinal drains are noted. IMPRESSION: Satisfactory postoperative appearance of the chest. at 1808 Reported and signed by: Johnny Joshi M.D. CC: Isabel Fernandez MD Technologist: Annamarie Puentes RT(R) Transcrpt Date/Tm/Trnsp: 01/21/2021 (1807) [id number] Orig Print D/T:S: 01/21/2021 (1810) [facility] NAME: JUSTICE MARS [id number] [address] PHYS: [place] [address] : 1960 AGE: 60 SEX: M LOC: UNK PHONE #: [phone] EXAM DATE: 01/21/2021 STATUS: DIS IN FAX #: [phone] RADIOLOGY NO: PAGE 1 Signed Report- XR CHEST [id number] 18:08:00 [facility] : 1960 Sex: M Patient Name: JUSTICE MARS Unit No: [id number] EXAMS: CPT CODE: [id number] XR CHEST 1V 87693 LOCATION: Q15 HISTORY: 60-year-old male, status post [...] is in the stomach. The right IJ [place]aim[place] catheter tip is in the right main pulmonary arterial branch. A right squamous central line seen with the tip in the superior vena cava. Mediastinal drains are noted. IMPRESSION: Satisfactory postoperative appearance of the chest. at 1808 Reported and signed by: Johnny Joshi M.D. CC: Isabel Fernandez MD Technologist: Annamarie Puentes RT(R) Transcrpt Date/Tm/Trnsp: 01/21/2021 (119) YaniraA2 Orig Print D/T:S: 01/21/2021 (1810) [facility] NAME: JUSTICE MARS [id number] [address] PHYS: [place] [address] : 1960 AGE: 60 SEX: M LOC: Z.SI02 A PHONE #: [phone] EXAM DATE: 01/21/2021 STATUS: ADM IN FAX #: [phone] RADIOLOGY NO: PAGE 1 Signed ReportPROTHROMBIN [id number] 17:46:00 Test Item Value Reference Range Interpretation [...] syste keshav embolism. 3.0 - 4.5 PTT [id number] 17:46:00 Test Item Value Reference Range Interpretation Comments PTT ACTIVATED (test code = APTT) 25.8 SECONDS 25.1-36.5 N POC ARTERIAL BLOOD [id number] 17:38:00 Test Item Value Reference Range Interpretation Comments POC ARTERIAL BLOOD GAS PH 7.439 7.35-7.45 N (test code = POCPHA) POC ARTERIAL BLOOD GAS PCO2 34.2 mmHg 35.0-45.0 L (test code = XCVSKW3M) POC ARTERIAL BLOOD GAS PO2 215.8 75.0-100.0 HH (test code = XFSRS4Z) POC HCO3 ARTERIAL (test 23.2 MMOL/L 20.0-26.0 N code = NWQYUY8R) POC BASE EXCESS (test code -0.6 MMOL/L -3.0-3.0 N = POCBEA) POC O2 SATURATION (test 99.8 % 92.0-98.5 H code = POCO2S) FIO2 (test code = FIO2A) 80 % 21-100 N PaO2/FiO2 (test code = 269.75 mm/Hg XXI3UVQ0) SODIUM (test code = NA/ABG) 146 MMOL/L [...] mmol/L 0.7-2.0 HH = LACTP) BASIC METABOLIC [id number] 17:37:00 Test Item Value Reference Range Interpretation [...] 7.9 MG/DL 8.4-10.2 L CA) CBC W/AUTO [id number] 17:29:00 Test Item Value Reference Range Interpretation [...] K/mm3 0.0-0.1 N NRBC#) POC ARTERIAL BLOOD [id number] 17:04:00 Test Item Value Reference Range Interpretation Comments POC ARTERIAL BLOOD GAS PH 7.300 7.35-7.45 L (test code = POCPHA) POC ARTERIAL BLOOD GAS PCO2 40.6 mmHg 35.0-45.0 N (test code = USBEBI6P) POC ARTERIAL BLOOD GAS PO2 188.1 75.0-100.0 H (test code = UJZVK6X) POC HCO3 ARTERIAL (test 20.0 MMOL/L 20.0-26.0 N code = CNVPIX9I) POC BASE EXCESS (test code -6.1 MMOL/L -3.0-3.0 L = POCBEA) POC O2 SATURATION (test 99.5 % 92.0-98.5 H code = POCO2S) FIO2 (test code = FIO2A) 80 % 21-100 PaO2/FiO2 (test code = 235.12 mm/Hg ZYP9MAI2) SODIUM (test code = NA/ABG) 143 MMOL/L [...] 0.7-2.0 HH = LACTP) POC ARTERIAL BLOOD [id number] 16:07:00 Test Item Value Reference Range Interpretation Comments POC ARTERIAL BLOOD GAS PH 7.302 7.35-7.45 L (test code = POCPHA) POC ARTERIAL BLOOD GAS PCO2 50.0 mmHg 35.0-45.0 H (test code = ZQGNMU5D) POC ARTERIAL BLOOD GAS PO2 370.8 75.0-100.0 HH (test code = ATGRM9A) POC HCO3 ARTERIAL (test 24.7 MMOL/L 20.0-26.0 N code = YBFXZE0F) POC BASE EXCESS (test code -2.0 MMOL/L -3.0-3.0 N = POCBEA) POC O2 SATURATION (test 99.9 % 92.0-98.5 H code = POCO2S) FIO2 (test code = FIO2A) 90 % 21-100 N PaO2/FiO2 (test code = 412.00 mm/Hg XNY5UXZ4) SODIUM (test code = NA/ABG) 139 MMOL/L [...] code 1.93 mmol/L 0.7-2.0 N = LACTP) [id number] 16:01:00 Test Item Value Reference Range Interpretation Comments POTASSIUM (test code = K) 5.9 MMOL/L 3.5-5.1 H [id number] 16:01:00 Test Item Value Reference Range Interpretation Comments GLUCOSE (test code = GLU) 165 MG/DL 74-106 H POC ARTERIAL BLOOD [id number] 15:47:00 Test Item Value Reference Range Interpretation Comments POC ARTERIAL BLOOD GAS PH 7.367 7.35-7.45 N (test code = POCPHA) POC ARTERIAL BLOOD GAS PCO2 45.2 mmHg 35.0-45.0 H (test code = YLGHKC4B) POC ARTERIAL BLOOD GAS PO2 398.7 75.0-100.0 HH (test code = QUTSL2D) POC HCO3 ARTERIAL (test 25.9 MMOL/L 20.0-26.0 N code = QDKRDH4J) POC BASE EXCESS (test code 0.3 MMOL/L -3.0-3.0 N = POCBEA) POC O2 SATURATION (test 100.0 % 92.0-98.5 H code = POCO2S) FIO2 (test code = FIO2A) 90 % 21-100 N PaO2/FiO2 (test code = 443.00 mm/Hg SZV8WRV6) SODIUM (test code = NA/ABG) 138 MMOL/L [...] 1.72 mmol/L 0.7-2.0 N = LACTP) HGB [id number] 15:43:00 Test Item Value Reference Range Interpretation Comments HEMOGLOBIN (test code = HGB) 10.7 G/DL 12.4-16.7 L HEMATOCRIT (test code = HCT) 31.6 % 35.9-49.5 L POC ARTERIAL BLOOD [id number] 15:18:00 Test Item Value Reference Range Interpretation Comments POC ARTERIAL BLOOD GAS PH 7.405 7.35-7.45 N (test code = POCPHA) POC ARTERIAL BLOOD GAS PCO2 38.9 mmHg 35.0-45.0 N (test code = EHHEIP5H) POC ARTERIAL BLOOD GAS PO2 362.3 75.0-100.0 HH (test code = WBAHO9J) POC HCO3 ARTERIAL (test 24.4 MMOL/L 20.0-26.0 N code = BZBTJR0L) POC BASE EXCESS (test code -0.3 MMOL/L -3.0-3.0 N = POCBEA) POC O2 SATURATION (test 100.0 % 92.0-98.5 H code = POCO2S) PaO2/FiO2 (test code = mm/Hg SLC9POY0) SODIUM (test code = NA/ABG) 136 MMOL/L [...] code 1.60 mmol/L 0.7-2.0 N = LACTP) [id number] 15:18:00 Test Item Value Reference Range Interpretation Comments POTASSIUM (test code = K) 5.9 MMOL/L 3.5-5.1 H PLEASE CALL RESULTS TO PHONE #: [phone] STAT [id number] 15:18:00 Test Item Value Reference Range Interpretation Comments GLUCOSE (test code = GLU) 187 MG/DL 74-106 H PLEASE CALL RESULTS TO PHONE #: [phone] STAT HGB [id number] 15:01:00 Test Item Value Reference Range Interpretation Comments HEMOGLOBIN (test code = HGB) 10.7 G/DL 12.4-16.7 L HEMATOCRIT (test code = HCT) 32.3 % 35.9-49.5 L PLEASE CALL RESULTS TO PHONE #: [phone] STAT POC ARTERIAL BLOOD GAS 2021-01-21 14:40:00 Test Item Value Reference Range Interpretation Comments POC ARTERIAL BLOOD GAS PH 7.335 7.35-7.45 L (test code = POCPHA) POC ARTERIAL BLOOD GAS PCO2 44.9 mmHg 35.0-45.0 N (test code = OUSSGV9C) POC ARTERIAL BLOOD GAS PO2 626.8 75.0-100.0 HH (test code = UVZET8H) POC HCO3 ARTERIAL (test 24.0 MMOL/L 20.0-26.0 N code = IPCKTY3M) POC BASE EXCESS (test code -1.9 MMOL/L -3.0-3.0 N = POCBEA) POC O2 SATURATION (test 100.0 % 92.0-98.5 H code = POCO2S) PaO2/FiO2 (test code = mm/Hg XRV5KIL6) SODIUM (test code = NA/ABG) 133 MMOL/L [...] 0.7-2.0 N = LACTP) POC ARTERIAL BLOOD [id number] 13:35:00 Test Item Value Reference Range Interpretation Comments POC ARTERIAL BLOOD GAS PH 7.346 7.35-7.45 L (test code = POCPHA) POC ARTERIAL BLOOD GAS PCO2 46.2 mmHg 35.0-45.0 H (test code = ZKFGEL9S) POC ARTERIAL BLOOD GAS PO2 377.8 75.0-100.0 HH (test code = ZTDGV8R) POC HCO3 ARTERIAL (test 25.3 MMOL/L 20.0-26.0 N code = JHAKEY5W) POC BASE EXCESS (test code -0.9 MMOL/L -3.0-3.0 N = POCBEA) POC O2 SATURATION (test 99.9 % 92.0-98.5 H code = POCO2S) PaO2/FiO2 (test code = mm/Hg BUP3SGF3) SODIUM (test code = NA/ABG) 135 MMOL/L [...] mmol/L 0.7-2.0 N = LACTP) BASIC METABOLIC [id number] 12:48:00 Test Item Value Reference Range Interpretation [...] 9.6 MG/DL 8.4-10.2 N CA) CBC W/AUTO [id number] 12:41:00 Test Item Value Reference Range Interpretation [...] 0.00 K/mm3 0.0-0.1 N NRBC#) CHEMISTRY 8 [id number] 12:02:00 Test Item Value Reference Range Interpretation [...] 0.7-2.0 N code = LACTP) CHEMISTRY 8 [id number] 11:50:00 Test Item Value Reference Range Interpretation [...] 0.7-2.0 N code = LACTP) CHEMISTRY 8 [id number] 11:50:00 Test Item Value Reference Range Interpretation [...] code = LACTP) COVID 19 Asymptomatic IH [id number] 09:21:00 Test Item Value Reference Range Interpretation [...] sample." Spec Comments: for surgery todayGLUCOSE BEDSIDE [id number] 07:11:00 Test Item Value Reference Range Interpretation Comments GLUCOSE BEDSIDE TESTING (test code 169 MG/DL 60-99 H = GLUBED) GLUCOSE BEDSIDE [id number] 19:45:00 Test Item Value Reference Range Interpretation Comments GLUCOSE BEDSIDE TESTING (test code 255 MG/DL 60-99 H = GLUBED) GLUCOSE BEDSIDE [id number] 15:35:00 Test Item Value Reference Range Interpretation Comments GLUCOSE BEDSIDE TESTING (test code 115 MG/DL 60-99 H = GLUBED) - XR CHEST [id number] 12:14:00 [facility] 1960 Sex: M Patient Name: JUSTICE MARS Unit No: [id number] EXAMS: CPT CODE: [id number] XR CHEST 1V 82069 EXAMINATION: Frontal chest radiograph INDICATION: Cardiac/heartsurgery COMPARISON: None LOCATION: S17 FINDINGS: Clear lungs. No pleural effusion or pneumothorax. Normal cardiomediastinal silhouette. IMPRESSION: No acute abnormality identified. at 1214 Reported and signed by: Mike Moore MD CC: Sonia FRANCO; Isabel Fernandez MD Technologist: Wicho aMrvin, RT(R) Transcrpt Date/Tm/Trnsp: 01/20/2021 (1214) [id number] Orig Print D/T: S: 01/20/2021 (1217) [facility] NAME: JUSTICE MARS [id number] PHYS: [place] [address] : 1960 AGE: 60 SEX: M LOC: UNK PHONE #: [phone] EXAM DATE: 01/20/2021 STATUS: DIS IN FAX #: [phone] RADIOLOGY NO: PAGE 1 Signed Report- XR CHEST [id number] 12:14:00[facility] : 1960 Sex: M Patient Name: JUSTICE MARS Unit No: [id number] EXAMS: CPT CODE: [id number] XR CHEST 1V 76167 EXAMINATION: Frontal chest radiograph INDICATION: Cardiac/heartsurgery COMPARISON: None LOCATION: S17 FINDINGS: Clear lungs. No pleural effusion or pneumothorax. Normal cardiomediastinal silhouette. IMPRESSION: No acute abnormality identified. at 1214 Reported and signed by: Mike Moore MD CC: Sonia FRANCO; Isabel Fernandez MD Technologist: Wicho Marvin, RT(R) Transcrpt Date/Tm/Trnsp: 01/20/2021 (1214) JulienPE1 Orig Print D/T: S: 01/20/2021 (1217) [facility] NAME: JUSTICE MARS [id number] [address] PHYS: [place] [address] : 1960 AGE: 60 SEX: M LOC: Rhonda Lucas PHONE #: [phone] EXAM DATE: 01/20/2021 STATUS: ADM IN FAX #: [phone] RADIOLOGY NO: PAGE 1 Signed ReportHIV 12 AB DIFFERENTIATION 2021-01-20 11:53:00 Test Item Value Reference Range Interpretation Comments HIV 1 2 COMBO AG/AB SCREEN AB/AG NON REACTIVE NONREACTIVE (test code = [id number]) GLUCOSE BEDSIDE [id number] 11:45:00 Test Item Value Reference Range Interpretation Comments GLUCOSE BEDSIDE TESTING (test code 204 MG/DL 60-99 H = GLUBED) GLYCOSYLATED HEMOGLOBIN [id number] 11:41:00 Test Item Value Reference Range Interpretation [...] 70-110 H (test code = MBG) PROTHROMBIN [id number] 11:28:00 Test Item Value Reference Range Interpretation [...] syste keshav embolism. 3.0 - 4.5 PTT [id number] 11:28:00 Test Item Value Reference Range Interpretation Comments PTT ACTIVATED (test code = APTT) 45.7 SECONDS 25.1-36.5 H PLT RESPONSE TO [id number] 11:28:00 Test Item Value Reference Range Interpretation [...] had fewer a dverse events. COMPREHENSIVE METABOLIC [id number] 11:22:00 Test Item Value Reference Range Interpretation [...] RATIO (test code = 0.86-1.14 INR) PTT [id number] 11:18:00 Test Item Value Reference Range Interpretation Comments PTT ACTIVATED (test code = APTT) SECONDS 25.1-36.5 PLT RESPONSE TO [id number] 11:18:00 Test Item Value Reference Range Interpretation [...] had fewer a dverse events. COMPREHENSIVE METABOLIC [id number] 11:13:00 Test Item Value Reference Range Interpretation [...] if not [facility] the [facility] [id number] 10:54:00 Test Item Value Reference Range Interpretation [...] MG/DL 60-99 H = GLUBED) GLUCOSE BEDSIDE [id number] 19:32:00 Test Item Value Reference Range Interpretation Comments GLUCOSE BEDSIDE TESTING (test code 155 MG/DL 60-99 H = GLUBED) GLUCOSE BEDSIDE [id number] 16:10:00 Test Item Value Reference Range Interpretation Comments GLUCOSE BEDSIDE TESTING (test code 160 MG/DL 60-99 H = GLUBED) GLUCOSE BEDSIDE [id number] 11:45:00 Test Item Value Reference Range Interpretation Comments GLUCOSE BEDSIDE TESTING (test code 183 MG/DL 60-99 H = GLUBED) GLUCOSE BEDSIDE [id number] 08:25:00 Test Item Value Reference Range Interpretation Comments GLUCOSE BEDSIDE TESTING (test code 146 MG/DL 60-99 H = GLUBED) PLT RESPONSE TO [id number] 05:09:00 Test Item Value Reference Range Interpretation [...] had fewer a dverse events. GLUCOSE BEDSIDE [id number] 19:11:00 Test Item Value Reference Range Interpretation Comments GLUCOSE BEDSIDE TESTING (test code 156 MG/DL 60-99 H = GLUBED) GLUCOSE BEDSIDE [id number] 16:04:00 Test Item Value Reference Range Interpretation Comments GLUCOSE BEDSIDE TESTING (test code 143 MG/DL 60-99 H = GLUBED) GLUCOSE BEDSIDE [id number] 11:11:00 Test Item Value Reference Range Interpretation Comments GLUCOSE BEDSIDE TESTING (test code 198 MG/DL 60-99 H = GLUBED) GLUCOSE BEDSIDE [id number] 07:49:00 Test Item Value Reference Range Interpretation Comments GLUCOSE BEDSIDE TESTING (test code 162 MG/DL 60-99 H = GLUBED) GLUCOSE BEDSIDE [id number] 19:50:00 Test Item Value Reference Range Interpretation Comments GLUCOSE BEDSIDE TESTING (test code 194 MG/DL 60-99 H = GLUBED) GLUCOSE BEDSIDE [id number] 16:09:00 Test Item Value Reference Range Interpretation Comments GLUCOSE BEDSIDE TESTING (test code 127 MG/DL 60-99 H = GLUBED) GLUCOSE BEDSIDE [id number] 15:44:00 Test Item Value Reference Range Interpretation Comments GLUCOSE BEDSIDE TESTING (test code 136 MG/DL 60-99 H = GLUBED) GLUCOSE BEDSIDE [id number] 11:20:00 Test Item Value Reference Range Interpretation Comments GLUCOSE BEDSIDE TESTING (test code 154 MG/DL 60-99 H = GLUBED) GLUCOSE BEDSIDE [id number] 07:15:00 Test Item Value Reference Range Interpretation Comments GLUCOSE BEDSIDE TESTING (test code 147 MG/DL 60-99 H = GLUBED) GLUCOSE BEDSIDE [id number] 18:56:00 Test Item Value Reference Range Interpretation Comments GLUCOSE BEDSIDE TESTING (test code 208 MG/DL 60-99 H = GLUBED) GLUCOSE BEDSIDE [id number] 15:54:00 Test Item Value Reference Range Interpretation Comments GLUCOSE BEDSIDE TESTING (test code 142 MG/DL 60-99 H = GLUBED) GLUCOSE BEDSIDE [id number] 11:08:00 Test Item Value Reference Range Interpretation Comments GLUCOSE BEDSIDE TESTING (test code 224 MG/DL 60-99 H = GLUBED) GLUCOSE BEDSIDE [id number] 07:28:00 Test Item Value Reference Range Interpretation Comments GLUCOSE BEDSIDE TESTING (test code 156 MG/DL 60-99 H = GLUBED) BASIC METABOLIC [id number] 04:46:00 Test Item Value Reference Range Interpretation [...] 9.1 MG/DL 8.4-10.2 N CA) CBC W/AUTO [id number] 04:27:00 Test Item Value Reference Range Interpretation [...] 0.00 K/mm3 0.0-0.1 N NRBC#) GLUCOSE BEDSIDE [id number] 19:26:00 Test Item Value Reference Range Interpretation Comments GLUCOSE BEDSIDE TESTING (test code 123 MG/DL 60-99 H = GLUBED) GLUCOSE BEDSIDE [id number] 15:35:00 Test Item Value Reference Range Interpretation Comments GLUCOSE BEDSIDE TESTING (test code 185 MG/DL 60-99 H = GLUBED) GLUCOSE BEDSIDE [id number] 10:36:00 Test Item Value Reference Range Interpretation [...] 0-189 mg/dL VERY HIGH...... ...>/= 190 mg/dL [id number] 02:58:00 Test Item Value Reference Range Interpretation [...] 0-189 mg/dL VERY HIGH...... ...>/= 190 mg/dL [id number] 02:52:00 Test Item Value Reference Range Interpretation Comments TROPONIN-I (test code = TROPI) NG/ML 0.0-0.045 GLYCOSYLATED HEMOGLOBIN [id number] 02:45:00 Test Item Value Reference Range Interpretation [...] LDL (test MG/DL 0-99 code = LDL) [id number] 02:42:00 Test Item Value Reference Range Interpretation Comments TROPONIN-I (test code = TROPI) NG/ML 0.0-0.045 COVID 19 Asymptomatic IH [id number] 00:41:00 Test Item Value Reference Range Interpretation [...] amount of virus (antigen) in the sample." [id number] 23:19:00 Test Item Value Reference Range Interpretation Comments TROPONIN-I (test 0.457 NG/ML 0.012-0.033 CALLED TO Laura HARRIS& code = TROPI) READBACK ON AT 2319 BY Luisa Givens [id number] 21:32:00 Test Item Value Reference Range Interpretation Comments TROPONIN-I (test 0.500 NG/ML 0.012-0.033 HH CALLED TO Tere VIZCARRA & code = TROPI) READBACK ON AT 2131 BY Luisa Givens [id number] 21:16:00 Test Item Value Reference Range Interpretation Comments MAGNESIUM (test code = MAG) 2.3 MG/DL 1.6-2.3 N PROTHROMBIN [id number] 21:02:00 Test Item Value Reference Range Interpretation [...] syste keshav embolism. 3.0 - 4.5 PTT [id number] 21:02:00 Test Item Value Reference Range Interpretation Comments PTT ACTIVATED (test code = APTT) 43.5 SECONDS 25.1-36.5 H GLUCOSE BEDSIDE [id number] 19:02:00 Test Item Value Reference Range Interpretation Comments GLUCOSE BEDSIDE TESTING (test code 218 MG/DL 60-99 H = GLUBED) BASIC METABOLIC [id number] 16:18:00 Test Item Value Reference Range Interpretation [...] 9.6 MG/DL 8.4-10.2 N CA) LIPOPROTEIN LDL [id number] 16:18:00 Test Item Value Reference Range Interpretation Comments LIPOPROTEIN LDL DIRECT 66 mg/dL 100-129 L ===== (test code = LDLDIR) ======= ==Refe rence Interval: mg/dL mmol/L--------- ------ ------ ------ --Optimal <100 <2.6Near/abov e optimal 100-129 2.6-3.3Borderli ne High 130-159 3.4-4.1High 16 0-189 4.1-4.9Ve ry High >=190 >=4.9========= This LDL result is a direct measurement.=== ====== [id number] 16:18:00 Test Item Value Reference Range Interpretation Comments TROPONIN-I (test 0.521 NG/ML 0.012-0.033 HH CALLED TO Shiva SAEED & code = TROPI) READBACK ON AT 1545 BY Luisa Givens BASIC METABOLIC [id number] 15:46:00 Test Item Value Reference Range Interpretation [...] 9.6 MG/DL 8.4-10.2 N CA) LIPOPROTEIN LDL [id number] 15:46:00 Test Item Value Reference Range Interpretation Comments LIPOPROTEIN LDL DIRECT (test code = mg/dL 100-129 LDLDIR) [id number] 15:46:00 Test Item Value Reference Range Interpretation Comments TROPONIN-I (test 0.521 NG/ML 0.012-0.033 HH CALLED TO Shiva SAEED & code = TROPI) READBACK ON AT 1545 BY Luisa Givens BASIC METABOLIC [id number] 15:09:00 Test Item Value Reference Range Interpretation [...] code = 9.6 MG/DL 8.4-10.2 N CA) [id number] 15:09:00 Test Item Value Reference Range Interpretation Comments TROPONIN-I (test code = TROPI) NG/ML 0.0-0.045 CBC W/AUTO [id number] 14:46:00 Test Item Value Reference Range Interpretation [...] = 0.00 K/mm3 0.0-0.1 N NRBC#) POCT-GLUCOSE [id number] 08:24:00 Test Item Value Reference Range Interpretation Comments POC-GLUCOSE METER 199 mg/dL 70-110 H TESTED AT [facility] 67[address] (BEAKER) (test code = [place] 1538) [id number] BASIC METABOLIC [id number] 04:13:00 Test Item Value Reference Range Interpretation [...] PATIEN TS. CBC W/PLT COUNT & AUTO [id number] 04:00:00 Test Item Value Reference Range Interpretation [...] PERCENT (BEAKER) (test code = 2801) POCT-GLUCOSE [id number] 21:42:00 Test Item Value Reference Range Interpretation Comments POC-GLUCOSE METER 218 mg/dL 70-110 H TESTED AT [facility] 67[address] (BEAKER) (test code = ARRON [place] 1538) [id number] CBC (HEMOGRAM ONLY)2018-10-01 19:29:00 Test Item Value [...] 0-0 (AKER) (test code = 413) POCT-GLUCOSE [id number] 17:50:00 Test Item Value Reference Range Interpretation Comments POC-GLUCOSE METER 139 mg/dL 70-110 H TESTED AT [place] [address] ([facility]) (test code = [place] 1538) [id number] 16:49:00 Test Item Value Reference Range Interpretation Comments ACTIVATED CLOTTING TIME 114 sec TEST ED AT [place] [address] ([facility]) (test code = [place] 441) [id number] POCT-GLUCOSE [id number] 12:01:00 Test Item Value Reference Range Interpretation Comments POC-GLUCOSE METER 235 mg/dL 70-110 H TESTED AT [place] [address] ([facility]) (test code = [place] 1538) [id number] HEMOGLOBIN [id number] 09:12:00 Test Item Value Reference Range Interpretation Comments HEMOGLOBIN A1C ([facility]) (test code = 8.5 % 4.3-6.1 H 368) POCT-GLUCOSE [id number] 08:19:00 Test Item Value Reference Range Interpretation Comments POC-GLUCOSE METER 284 mg/dL 70-110 H TESTED AT [facility] 67 ([facility]) (test code = [place] [facility] 1538) [id number] TROPONIN [id number] 06:57:00 Test Item Value Reference Range Interpretation Comments TROPONIN I ([facility]) (test code = 1.35 ng/mL 0.00-0.03 397) [...] failure, acidosis, acute neurological disease, and persistent tachyarrhythmia.[id number] 06:43:00 Test Item Value Reference Range Interpretation Comments PARTIAL THROMBOPLASTIN TIME 57.7 seconds 22.5-36.0 H ([facility]) (test code = 760) TROPONIN [id number] 01:21:00 Test Item Value Reference Range Interpretation Comments TROPONIN I ([facility]) (test code = 1.68 ng/mL 0.00-0.03 397) [...] failure, acidosis, acute neurological disease, and persistent tachyarrhythmia.[id number] 00:50:00 Test Item Value Reference Range Interpretation Comments PARTIAL THROMBOPLASTIN TIME 42.4 seconds 22.5-36.0 H ([facility]) (test code = 760) POCT-GLUCOSE [id number] 21:47:00 Test Item Value Reference Range Interpretation Comments POC-GLUCOSE METER 277 mg/dL 70-110 H TESTED AT [facility] 6720 ([facility]) (test code = [facility] 1538) [address] RAD, CHEST, 1 VIEW, NON [id number] 19:55:00Reason for exam:->chest painShould this be performed at the bedside?->YesFINAL REPORT AP view of the chest dated 09/30/2018 COMPARISON: September 17, 2011 CLINICAL INFORMATION: chest pain Comment: Heart is normal in size. Pulmonary vasculature is unremarkable. Lungs are clear. No pulmonary infiltrate or pleural effusion is present. Impression: No active cardiopulmonary disease or interval change. Signed: Prashanth Hunter MDReport Verified Date/Time: 09/30/2018 19:55:13 Reading Location: [address] Consult Reading Room B-TYPE NATRIURETIC FACTOR (BNP) 2018-09-30 18:03:00 Test Item Value Reference Range Interpretation Comments B-TYPE NATRIURETIC PEPTIDE (BEAKER) < pg/mL 0-100 (test code = 700) TROPONIN [id number] 18:00:00 Test Item Value Reference Range Interpretation [...] failure, acidosis, acute neurological disease, and persistent tachyarrhythmia.[id number] 17:46:00 Test Item Value Reference Range Interpretation Comments MAGNESIUM (BEAKER) (test code = 2.0 mg/dL 1.6-2.6 627) COMPREHENSIVE METABOLIC [id number] 17:46:00 Test Item Value Reference Range Interpretation [...] NOT APPLICABLE FOR DIALYSIS PATIEN TS. LIPID [id number] 17:46:00 Test Item Value Reference Range Interpretation [...] 100-129 Borderline 130-159 High 160-189 Very High >=[id number] 17:34:00 Test Item Value Reference Range Interpretation Comments PARTIAL THROMBOPLASTIN TIME 46.0 seconds 22.5-36.0 H (BEAKER) (test code = 760) CBC W/PLT COUNT & AUTO [id number] 17:28:00 Test Item Value Reference Range Interpretation [...] (test code = 416) BASOPHILS ABSOLUTE COUNT ([facility]) 0.07 K/ L 0.01-0.08 (test code = 417) IMMATURE GRANULOCYTES-RELATIVE 2 % 0-1 H PERCENT ([facility]) (test code = 2801) POCT-GLUCOSE [id number] 17:20:00 Test Item Value Reference Range Interpretation Comments POC-GLUCOSE METER 212 mg/dL 70-110 H TESTED AT [facility] 67[address] ([facility]) (test code = [place] 1538) [id number]
== END 2021-07-01 13:58 | disposition home or self-care (01) ==
LOC: ER 11:03 → ERHOLD 14:38 → 2ND 16:11
PROVIDERS: ADMIT Internal Medicine; ATTEND Internal Medicine
DX: K52.9 Noninfective gastroenteritis and colitis, unspecified (principal); E11.9 Type 2 diabetes mellitus without complications; E80.6 Other disorders of bilirubin metabolism; I10 Essential (primary) hypertension; Z23 Encounter for immunization; Z20.822 Contact with and (suspected) exposure to COVID-19
CPT/HCPCS: 96361; 85025 ×2; 80048; 36415; 83735; 84100; 82947 ×6; 80076; 81003; 83690; 80053; 74177; 90471; 96374; 99284; U0003; Q9967; Q2035; J1650 ×2; J3475; J7030 ×4; J2405; J0744 ×2; G0378 ×3

== ENCOUNTER 2022-05-01 09:38 | Emergency (ER) | payer BC, OTHER ==
--- OUTSIDE RECORDS SUMMARY | 2022-05-01 09:54 | XMS REPORT | Continuity of Care Document ---
:1960 Author Organization [facility] t Address [address] [place] [address] Care Team Providers Name Role Phone Al MARTINEZ, [place] Amanda Primary Care Physician [phone] Jewels Marcos Attending Clinician Unavailable Rubia Attending Clinician Unavailable Boy Attending Clinician Unavailable Hank Dominguez Attending Clinician Silvia Daley MD Attending Clinician Zenaida Hearn RN Attending Clinician Unavailable SILVIA DALEY Attending Clinician Unavailable Doctor Unassigned, [employer] Attending Clinician Unavailable DION LUIS Attending Clinician Unavailable Jakub Gu Attending Clinician Unavailable UNKNOWN Attending Clinician Unavailable Momo Olivia Attending Clinician Unavailable PRANAV Attending Clinician Unavailable Eliu Hernández Attending Clinician BRAD HUA Attending Clinician Unavailable Jewels Marcos Admitting Clinician Unavailable Rubia Admitting Clinician Unavailable Boy Admitting Clinician Unavailable Jakub Gu Admitting Clinician Unavailable TAMMY_L Admitting Clinician Unavailable FIOR HUA Admitting Clinician Unavailable Payers Payer Name Policy Type Policy Number Effective Date Expiration Date [employer] 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 diabetes diabetes 03-08 ity of mellitus mellitus 00:00: [place] [facility] JOSUE on JOSUE on Disease Active Univers CPAP CPAP 03-08 ity of 00:00: [place] [facility] LEFT LEFT Diagnosis Active 2019-03-07 Mem oria BROKEN BROKEN 03-06 16:43:00 l WRIST WRIST 13:30: Active 00 03/06/2019 [facility] NSTEMI NSTEMI Disease Active [facility] elevated elevated 00:00: Medica l myocardial myocardial 00 Ce nter infarction infarction ) ) RECURRENT RECURRENT Diagnosis Active 2011-10-02 Memoria FEVER FEVER 2-04 12:05:00 l PATECIA PATECIA 00:00: Active 00 09/30/2011 [facility] BACK PAIN, BACK Diagnosis Active 2011-09-30 Memoria FEVER, PAIN, 2-04 11:31:00 l NAUSEA FEVER, 00:00: NAUSEA 00 Active 09/30/2011 [facility] VOMITING VOMITING Diagnosis Active 2011-09-21 Memoria Active 09-20 01:55:00 l 09/20/2011 00:00: Shantanu n [address] SEPSIS SEPSIS Diagnosis Active 2011-09-25 Me moria Active 09-20 10:44:00 l 09/20/2011 00:00: Shantanu duenas [address] Systemic Systemic Problem Resolve 2022-02-20 Memoria infection infection d 02:41:34 l (disorder) (disorder) [facility] Resolved Problem 02/20/2022 [facility], [facility] Diabetes Diabetes Problem Active 2022-02-20 Memoria mellitus mellitus 02:41:34 l (disorder) (disorder) [facility] Active Problem 02/20/2022 [facility] Headache Headache Problem Active 2022-02-20 Memoria (finding) (finding) 02:41:34 l Active [place] Problem 02/20/2022 [facility] SMR [facility] Hydrocepha Hydroceph Problem Active 2022-02-20 Memoria delia alus 02:41:34 l (disorder) (disorder) [facility] Active Problem 02/20/2022 [facility] Hypertensi Hypertens Problem Active 2022-02-20 Memoria ve leif 02:41:34 l disorder, disorder, Herm hawa systemic systemic arterial arterial (disorder) (disorder) Active Problem 02/20/2022 [facility] Memory Memory Problem Active 2022-02-20 Danilo gricelda impairment impairment 02:41:34 l (finding) (finding) Herm hawa Active Problem 02/20/2022 [facility] Simple Simple Problem Active 2022-02-20 Danilo gricelda obesity obesity 02:41:34 l (disorder) (disorder) He rmann Active Problem 02/20/2022 [facility] Traumatic Traumatic Problem Active 2022-02-20 Memoria brain brain 02:41:34 l injury injury [place] (disorder) (disorder) Active Problem 02/20/2022 [facility] Headache Headache Problem Active 2011-10-03 Memoria Active 09:14:31 l Problem [place] 10/03/2011 [facility] Sepsis Sepsis Problem Active 2011-10-03 Danilo gricelda Active 09:14:31 l Problem [place] 10/03/2011 [facility] SEPTICEMIA SEPTICEMI Diagnosis Active 2011-09-25 Memoria NOS A NOS 10:44:00 l Active [facility] FEVER NOS FEVER NOS Diagnosis Active 2011-10-02 Memoria Active 12:05:00 l [facility] Ataxia Ataxia Problem Active 2022-02-20 Danilo gricelda (finding) (finding) 02:41:34 l Active Problem 02/20/2022 [facility] Cervical Cervical Problem Active 2022-02-20 Memoria radiculopa radiculopa 02:41:34 l thy thy (disorder) (disorder) Active Problem 02/20/2022 [facility] Lumbar Lumbar Problem Active 2022-02-20 Danilo gricelda radiculopa radiculopa 02:41:34 l thy thy (disorder) (disorder) Active Problem 02/20/2022 [facility] Allergies, Adverse Reactions, Alerts Allergy Allergy Status Severity Reaction(s) Onset Inactive Treating Comm ents Source Name Type Date Date Clinician AMIODARO DRUG Active High Rash 2020- Univers NE INGREDI 7-13 ity of 00:00: [place] 00 [facility] CLOPIDOG DRUG Active High Rash Univers REL INGREDI 7-13 ity of 00:00: [place] 00 [facility] Amiodaro Propensi Active Swelling Univ ers ne ty to 7-13 ity of adverse 00:00: [place] reaction 00 Medical Branch Clopidog Propensi Active Swelling Univ ers rel ty to 713 ity of adverse 00:00: [place] reaction 00 Medical Branch Sulfa DA Active [facility] (Sulfona 5[facility]21 [facility] [place] 00:00: [place] [facility] Sulfa DA Active SV JAUND[facility] (Sulfona 5-21 [place] 00:00: [place] [facility] Sulfa Drug Active Other (See Liver [facility] (Sulfona Allergy Comments) 2-04 failure [facility] mide 00:00: Medical Antibiot 00 Center ics) SULFA Drug Active High Unknown-Cmnt Univ ers (SULFONA Class 2-04 ity of MIDE 00:00: [place] ANTIBIOT 00 Medical ICS) Branch Sulfa Drug Active Unknown - Liver Univers (Sulfona Allergy See comments 2-04 failure ity of mide 00:00: [place] Antibiot 00 Medical ics) Branch Salicyla DA Active [facility] 02-15 [place] 00:00: [facility] Pyrazolo DA Active [facility] nicci 02-15 00:00: [facility] 00 [facility] NSAIDS DA Active [facility] (Non-Daljti 02-15 [place] roidal 00:00: [facility] Anti-Inf 00 dic lamma Hospita l diclofen DA Active [facility] ac 02-15 [place] 00:00: Orthope 00 dic [facility] l NO KNOWN Drug Active Univers ALLERGIE Class ity of S [facility] Social History Social Habit Start Date Stop Date Quantity Comments Source History of Snuff User [facility] tobacco use [facility] Cent[facility] r History SDOH [facility] Alcohol Comment Medical C enter History SDOH [facility] Alcohol Std Medical Cente r Drinks History SDOH [facility] Alcohol Binge Medical Omayra ter Exposure to Yes [facility]-CoV-2 [facility] (event) Branch Social History 2019-04-24 2019-04-24 [facility] ermann 21:31:10 21:31:10 Alcohol intake 2018-10-02 2018-10-[address] [facility] es 00:00:00 00:00:00 non-drinker of Medical Ce nter alcohol (finding) Tobacco use and 2018-09-30 2018-09-[address] [facility] [facility] exposure 00:00:00 00:00:00 Medical Center History SDOH 2018-09-30 2018-09-[address] [facility] Alcohol Frequency 00:00:00 00:00:00 [facility] Sex Assigned At [address] [facility] kes 00:00:00 00:00:00 [facility] Smoking Status Start Date Stop Date Source Never smoker [facility] Medications Ordered Filled Start Stop Current Ordering Indication Dosage Frequency Signature Comments Components Source Medication Medication Date Date Medication? Clinician (SIG) Name Name lisinopril Yes TAKE 1 Memor ia 20 mg oral 6-24 TABLET BY l tablet 16:52: MOUTH 00 TWICE A DAY FOR 90 DAYS nitroglycer Yes PLEASE SEE Memoria in 0.4 mg 6-24 ATTACHED l sublingual 16:52: FOR tablet 00 DETAILED DIRECTIONS lisinopril Yes TAKE 1 Memor ia 20 mg oral 6-24 TABLET BY l tablet 16:52: MOUTH 00 TWICE A DAY FOR 90 DAYS nitroglycer Yes PLEASE SEE Memoria in 0.4 mg 6-24 ATTACHED l sublingual 16:52: FOR [place] tablet 00 DETAILED DIRECTIONS isosorbide Yes 30 mg = 1 Me moria mononitrate 4-21 tab, PO, l 30 mg oral 14:20: QAM, # 90 He rmann tablet, 00 tab, 3 extended Refill(s) release Levemir Yes SUB-Q, 0 Memori a 4-21 Refill(s) l 14:20: 00 Vitamin D3 Yes 0 Memoria 4-21 Refill(s) l 14:20: 00 multivitami 0 Yes Daily, 0 Me moria n 4-21 Refill(s) l 14:20: isosorbide Yes 30 mg = 1 Me moria mononitrate 4-21 tab, PO, l 30 mg oral 14:20: QAM, # 90 He rmann tablet, 00 tab, 3 extended Refill(s) release Levemir Yes SUB-Q, 0 Memori a 4-21 Refill(s) l 14:20: 00 Vitamin D3 Yes 0 Memoria 4-21 Refill(s) l 14:20: 00 multivitami 0 Yes Daily, 0 Me moria n 4-21 Refill(s) l 14:20: clopidogrel Yes 75 mg = 1 M emoria 75 mg oral 4-21 tab, PO, l tablet 14:19: Daily, # 00 90 tab, 3 Refill(s) clopidogrel 0 Yes 75 mg = 1 M emoria 75 mg oral 4-21 tab, PO, l tablet 14:19: Daily, # [place] 00 90 tab, 3 Refill(s) cetirizine Yes [id number] 10mg Take 1 U nivers (ZYRTEC) 10 1-24 tablet by ity of mg tablet 00:00: mouth [place] 00 daily. Medical Branch azelastine Yes [id number] 1{spray Use 1 Univers 137 mcg 1-24 } [place] in ity of (0.1 %) 00:00: each [place] nasal spray 00 nostril 2 Med ical (two) Branch times daily. Use in each nostril as directed fluticasone Yes [id number] 1{spray Use 1 Univers propionate 1-24 } [place] in ity o f 50 00:00: each [place] mcg/actuati 00 nostril Medic al on nasal daily. Branch spray cetirizine Yes [id number] 10mg Take 1 U nivers (ZYRTEC) 10 1-24 tablet by ity of mg tablet 00:00: mouth [place] 00 daily. Medical Branch azelastine 2021-0 Yes [id number] 1{spray Use 1 Univers 137 mcg 1-24 } [place] in ity of (0.1 %) 00:00: each [place] nasal spray 00 nostril 2 Med ical (two) Branch times daily. Use in each nostril as directed fluticasone 2021-0 Yes [id number] 1{spray Use 1 Univers propionate 1-24 } [place] in ity o f 50 00:00: each [place] mcg/actuati 00 nostril Medic al on nasal daily. Branch spray cetirizine 2021-0 Yes [id number] 10mg Take 1 U nivers (ZYRTEC) 10 1-24 tablet by ity of mg tablet 00:00: mouth [place] 00 daily. Medical Branch azelastine 2021-0 Yes [id number] 1{spray Use 1 Univers 137 mcg 1-24 } [place] in ity of (0.1 %) 00:00: each [place] nasal spray 00 nostril 2 Med ical (two) Branch times daily. Use in each nostril as directed fluticasone 2021-0 Yes [id number] 1{spray Use 1 Univers propionate 1-24 } [place] in ity o f 50 00:00: each [place] mcg/actuati 00 nostril Medic al on nasal daily. Branch spray cetirizine 2021-0 Yes [id number] 10mg Take 1 U nivers (ZYRTEC) 10 1-24 tablet by ity of mg tablet 00:00: mouth [place] 00 daily. Medical Branch azelastine 2021-0 Yes [id number] 1{spray Use 1 Univers 137 mcg 1-24 } [place] in ity of (0.1 %) 00:00: each [place] nasal spray 00 nostril 2 Med ical (two) Branch times daily. Use in each nostril as directed fluticasone 2021-0 Yes [id number] 1{spray Use 1 Univers propionate 1-24 } [place] in ity o f 50 00:00: each [place] mcg/actuati 00 nostril Medic al on nasal daily. Branch spray cetirizine 2021-0 Yes [id number] 10mg Take 1 U nivers (ZYRTEC) 10 1-24 tablet by ity of mg tablet 00:00: mouth [place] 00 daily. Medical Branch azelastine Yes [id number] 1{spray Use 1 Univers 137 mcg 1-24 } [place] in ity of (0.1 %) 00:00: each [place] nasal spray 00 nostril 2 Med ical (two) Branch times daily. Use in each nostril as directed fluticasone Yes [id number] 1{spray Use 1 Univers propionate 1-24 } [place] in ity o f 50 00:00: each [place] mcg/actuati 00 nostril Medic al on nasal daily. Branch spray amoxicillin 2021- No [id number] 1{tbl} Take 1 Univers -clavulanat 1-24 - tablet by it y of e 00:00: 05:59 mouth 2 [place] (AUGMENTIN) 00 :00 (two) Medical 875-125 mg times Branch per tablet daily for 7 days. amoxicillin 2021- No [id number] 1{tbl} Take 1 Univers -clavulanat 1-24 - tablet by it y of e 00:00: 05:59 mouth 2 [place] (AUGMENTIN) 00 :00 (two) Medical 875-125 mg times Branch per tablet daily for 7 days. baclofen 10 Yes baclofen Un julissa mg tablet 7-13 10 mg ity of 13:26: tablet [address] metoprolol Yes metoprolol U nivers tartrate 25 7-13 tartrate ity of mg tablet 13:26: 25 mg tablet [facility] omeprazole Yes omeprazole U nivers 40 mg 7-13 40 mg ity of capsule 13:26: capsule,de [place] [facility] tamsulosin Yes tamsulosin U nivers 0.4 mg 24 7-13 0.4 mg ity of hr capsule 13:26: capsule [place] baclofen 10 Yes baclofen Un julissa mg tablet 7-13 10 mg ity of 13:26: tablet [address] metoprolol Yes metoprolol U nivers tartrate 25 7-13 tartrate ity of mg tablet 13:26: [address] omeprazole Yes omeprazole U nivers 40 mg 7-13 40 mg ity of capsule 13:26: [place] [address] [place] [address] tamsulosin Yes tamsulosin U nivers 0.4 mg 24 7-13 0.4 mg ity of hr capsule 13:26: capsule [address] baclofen 10 Yes baclofen Un julissa mg tablet 7-13 10 mg ity of 13:26: tablet [address] metoprolol Yes metoprolol U nivers tartrate 25 7-13 tartrate ity of mg tablet 13:26: 25 mg [place] [address] tablet [facility] omeprazole Yes omeprazole U nivers 40 mg 7-13 40 mg ity of capsule 13:26: capsule[place] [address] [place] [address] tamsulosin Yes tamsulosin U nivers 0.4 mg 24 7-13 0.4 mg ity of hr capsule 13:26: capsule [address] baclofen 10 Yes baclofen Un julissa mg tablet 7-13 10 mg ity of 13:26: tablet [address] metoprolol Yes metoprolol U nivers tartrate 25 7-13 tartrate ity of mg tablet 13:26: [address] omeprazole Yes omeprazole U nivers 40 mg 7-13 40 mg ity of capsule 13:26: capsuleFuentes [address] tamsulosin Yes tamsulosin U nivers 0.4 mg 24 7-13 0.4 mg ity of hr capsule 13:26: capsule [address] baclofen 10 Yes baclofen Un julissa mg tablet 7-13 10 mg ity of 13:26: tablet [address] metoprolol Yes metoprolol U nivers tartrate 25 7-13 tartrate ity of mg tablet 13:26: 25 mg [place] [address] tablet [facility] omeprazole Yes omeprazole U nivers 40 mg 7-13 40 mg ity of capsule 13:26: capsuleFuentes [address] tamsulosin Yes tamsulosin U nivers 0.4 mg 24 7-13 0.4 mg ity of hr capsule 13:26: [place] [address] baclofen 10 Yes baclofen Un julissa mg tablet 13 10 mg ity of 13:26: tablet [address] metoprolol Yes metoprolol U nivers tartrate 25 7-13 tartrate ity of mg tablet 13:26: 25 mg tablet Medical [place] omeprazole Yes omeprazole U nivers 40 mg 7-13 40 mg ity of capsule 13:26: capsule,de [place] [facility] tamsulosin Yes tamsulosin U nivers 0.4 mg 24 7-13 0.4 mg ity of hr capsule 13:26: [place] [address] [place] [address] lisinopriL Yes Univers 10 mg 7-12 ity of tablet 00:00: [address] lisinopriL Yes Univers 10 mg 7-12 ity of tablet 00:00: [address] lisinopriL Yes Univers 10 mg 7-12 ity of tablet 00:00: [address] lisinopriL 0 Yes Univers 10 mg 7-12 ity of tablet 00:00: [address] lisinopriL 0 Yes Univers 10 mg 7-12 ity of tablet 00:00: [address] lisinopriL 0 Yes Univers 10 mg 7-12 ity of tablet 00:00: [address] tiZANidine Yes Univers 4 mg tablet 7-10 ity of 00:00: [place] [facility] tiZANidine Yes Univers 4 mg tablet 7-10 ity of 00:00: [address] tiZANidine 0 Yes Univers 4 mg tablet 7-10 ity of 00:00: [address] tiZANidine 0 Yes Univers 4 mg tablet 7-10 ity of 00:00: [address] tiZANidine 0 Yes Univers 4 mg tablet 7-10 ity of 00:00: [address] tiZANidine 0 Yes Univers 4 mg tablet 7-10 ity of 00:00: [facility] celecoxib 2021-0 Yes 200mg Take 200 Uni vers 200 mg 5-14 mg by ity of capsule 00:00: mouth [place] every Medical morning. Branch celecoxib 2021-0 Yes 200mg Take 200 Uni vers 200 mg 5-14 mg by ity of capsule 00:00: mouth [place] every Medical morning. Branch celecoxib 2021-0 Yes 200mg Take 200 Uni vers 200 mg 5-14 mg by ity of capsule 00:00: mouth [place] every Medical morning. Branch celecoxib 2021-0 Yes 200mg Take 200 Uni vers 200 mg 5-14 mg by ity of capsule 00:00: mouth [place] every Medical morning. Branch celecoxib 2021-0 Yes 200mg Take 200 Uni vers 200 mg 5-14 mg by ity of capsule 00:00: mouth [place] every Medical morning. Branch celecoxib 2021-0 Yes 200mg Take 200 Uni vers 200 mg 5-14 mg by ity of capsule 00:00: mouth [place] every Medical morning. Branch atorvastati 2020-0 Yes 40 mg = 1 M emoria n 40 mg 4-23 tab, PO, l oral tablet 18:24: Bedtime, # [place] 00 30 tab, 0 Refill(s) atorvastati 1-0 Yes 40 mg = 1 M emoria n 40 mg 4-23 tab, PO, l oral tablet 18:24: Bedtime, # [place] 00 30 tab, 0 Refill(s) atorvastati 2021-0 Yes 40mg Take 40 mg Univers n 40 mg 4-23 by mouth ity of tablet 00:00: daily. [place] [facility] atorvastati 2021-0 Yes 40mg Take 40 mg Univers n 40 mg 4-23 by mouth ity of tablet 00:00: daily. [facility] atorvastati 2021-0 Yes 40mg Take 40 mg Univers n 40 mg 4-23 by mouth ity of tablet 00:00: daily. [facility] atorvastati 2021-0 Yes 40mg Take 40 mg Univers n 40 mg 4-23 by mouth ity of tablet 00:00: daily. [place] [facility] atorvastati 2021-0 Yes 40mg Take 40 mg Univers n 40 mg 4-23 by mouth ity of tablet 00:00: daily. [address] atorvastati Yes 40mg Take 40 mg Univers n 40 mg 4-23 by mouth ity of tablet 00:00: daily. [address] glimepiride 2018-08 Yes 4 mg = 1 Me moria 4 mg oral 0-01 tab, PO, l tablet 21:32: BID, 0 00 Refill(s) levocetiriz 2018-08 Yes 5 mg = 1 Me moria ine 5 mg 0-01 tab, PO, l oral tablet 21:32: QPM, 0 Herm hawa 00 Refill(s) celecoxib 2018-08 Yes 200 mg = 1 Me moria 200 mg oral 0-01 cap, PO, l capsule 21:32: Daily, # Shantanu n 00 30 cap, 0 Refill(s) metoprolol 2018-08 Yes 12.5 mg = Me moria tartrate 25 0-01 0.5 tab, l mg oral 21:32: PO, BID, 0 Herm hawa tablet 00 Refill(s) Aspirin 81 2018-08 Yes 81 mg = 1 Me moria MG Chewable 0-01 tab, PO, l Tablet 21:32: Daily, 00 tab, 0 Refill(s) tamsulosin 2018-08 Yes 0.4 mg = 1 M emoria 0.4 mg oral 0-01 cap, PO, l capsule 21:32: Daily, # Shantanu n 00 30 cap, 0 Refill(s) dapaglifloz 2018-08 Yes 5 mg = 1 Me moria in 0-01 tab, PO, l propanediol 21:32: Daily, 0 He rmann 5 MG Oral 00 Refill(s) Tablet [Farxiga] omeprazole 2018-08 Yes 40 mg = 1 Me moria 40 mg oral 0-01 cap, PO, l delayed 21:32: Daily, # Shantanu n release 00 30 cap, 0 capsule Refill(s) glimepiride 2018-08 Yes 4 mg = 1 Me moria 4 mg oral 0-01 tab, PO, l tablet 21:32: BID, 0 00 Refill(s) levocetiriz 2018-08 Yes 5 mg = 1 Me moria ine 5 mg 0-01 tab, PO, l oral tablet 21:32: QPM, 0 Herm hawa 00 Refill(s) celecoxib 2018-08 Yes 200 mg = 1 Me moria 200 mg oral 0-01 cap, PO, l capsule 21:32: Daily, # Shantanu n 00 30 cap, 0 Refill(s) metoprolol 2018-08 Yes 12.5 mg = Me moria tartrate 25 0-01 0.5 tab, l mg oral 21:32: PO, BID, 0 Herm hawa tablet 00 Refill(s) Aspirin 81 2018-08 Yes 81 mg = 1 Me moria MG Chewable 0-01 tab, PO, l Tablet 21:32: Daily, 00 tab, 0 Refill(s) tamsulosin 2018-08 Yes 0.4 mg = 1 M emoria 0.4 mg oral 0-01 cap, PO, l capsule 21:32: Daily, # Shantanu n 00 30 cap, 0 Refill(s) dapaglifloz 2018-08 Yes 5 mg = 1 Me moria in 0-01 tab, PO, l propanediol 21:32: Daily, 0 He rmann 5 MG Oral 00 Refill(s) Tablet [Farxiga] omeprazole 2018-08 Yes 40 mg = 1 Me moria 40 mg oral 0-01 cap, PO, l delayed 21:32: Daily, # Shantanu n release 00 30 cap, 0 capsule Refill(s) amLODIPine Yes 10mg QD Take [address] (NORVASC) 2-06 by mouth [facility] 10 MG 09:59: daily. Medical tablet 51 [place] lisinopril Yes 20mg QD Take [address] (PRINIVIL,Z 2-06 by mouth Luke s ESTRIL) 5 09:59: daily . Medic al MG tablet 51 [place] omeprazole Yes 40mg QD Take [address] (PRILOSEC) 2-06 by mouth [facility] 40 MG 09:59: daily. Medical capsule 51 [place] glimepiride Yes .5mg Take 0.[address] (AMARYL) 1 2-06 mg by [facility] MG tablet 09:59: mouth Medical 51 every Center morning before breakfast. tamsulosin Yes .4mg QD Take 0.[address] [facility] [address] (FLOMAX) 2-06 mg by [facility] 0.4 mg Cap 09:59: mouth Medica l 24 hr 51 daily. Center capsule levocetiriz 2019-0 Yes 5mg QD Take [address] ine (XYZAL) 2-06 by mouth Luke s 5 MG tablet 09:59: every Medic al 51 evening. Center celecoxib 2019-0 Yes 200mg Take [address] (CELEBREX) 2-06 mg by [facility] 200 MG 09:59: mouth Medical capsule 51 every 12 Center (twelve) hours as needed for Pain. amLODIPine 2019-0 Yes 10mg QD Take [address] (NORVASC) 2-06 by mouth [facility] 10 MG 09:59: daily. Medical tablet 51 [place] lisinopril 2019-0 Yes 20mg QD Take [address] (PRINIVIL,Z 2-06 by mouth Luke s ESTRIL) 5 09:59: daily . Medic al MG tablet 51 [place] omeprazole 2019-0 Yes 40mg QD Take [address] (PRILOSEC) 2-06 by mouth [facility] 40 MG 09:59: daily. Medical capsule 51 [place] glimepiride 2019-0 Yes .5mg Take 0.[address] (AMARYL) 1 2-06 mg by [facility] MG tablet 09:59: mouth Medical 51 every Center morning before breakfast. tamsulosin 2019-0 Yes .4mg QD Take 0.[address] [facility] (FLOMAX) 2-06 mg by [facility] 0.4 mg Cap 09:59: mouth Medica l 24 hr 51 daily. [place] capsule levocetiriz 2019-0 Yes 5mg QD Take [address] ine (XYZAL) 2-06 by mouth Luke s 5 MG tablet 09:59: every Medic al 51 evening. [place] celecoxib 2019-0 Yes 200mg Take [address] (CELEBREX) 2-06 mg by [facility] 200 MG 09:59: mouth Medical capsule 51 every 12 Center (twelve) hours as needed for Pain. amLODIPine 2019-0 Yes 10mg QD Take [address] (NORVASC) 2-06 by mouth [facility] 10 MG 09:59: daily. Medical tablet 51 [place] lisinopril 2019-0 Yes 20mg QD Take [address] (PRINIVIL,Z 2-06 by mouth Luke s ESTRIL) 5 09:59: daily . Medic al MG tablet 51 [place] omeprazole 2019-0 Yes 40mg QD Take [address] (PRILOSEC) 2-06 by mouth [facility] 40 MG 09:59: daily. Medical capsule 51 [place] glimepiride 2018- Yes .5mg Take 0.[address] (AMARYL) 1 2-06 mg by [facility] MG tablet 09:59: mouth Medical 51 every Center morning before breakfast. tamsulosin 2018- Yes .4mg QD Take 0.[address] (FLOMAX) 2-06 mg by [facility] 0.4 mg Cap 09:59: mouth Medica l 24 hr 51 daily. Center capsule levocetiriz Yes 5mg QD Take [address] ine (XYZAL) 2-06 by mouth Luke s 5 MG tablet 09:59: every Medic al 51 evening. [place] celecoxib 2018- Yes 200mg Take [address] (CELEBREX) 2-06 mg by [facility] 200 MG 09:59: mouth Medical capsule 51 every 12 Center (twelve) hours as needed for Pain. Protonix 2011-0 No Prashanth 40 mg, 1 Danilo gricelda 2-05 Raj tab, l 22:30: Tam Route: PO, Keiry nn 00 Drug form: ECTAB, Before Dinner, Start date: 10/01/11 16:30:00, Duration: 30 day, Stop date: 10/30/11 16:30:00 Protonix 2011-0 No Prashanth 40 mg, 1 Danilo gricelda 2-05 Raj tab, l 22:30: Tam Route: PO, Keiry nn 00 Drug form: ECTAB, Before Dinner, Start date: 10/01/11 16:30:00, Duration: 30 day, Stop date: 10/30/11 16:30:00 cefdinir 2011-0 Yes Prashanth 300 mg, 1 Mem oria 300 mg oral 2-05 Raj cap, PO, l capsule 15:56: Tam Q12H, 28 Herm hawa 51 cap, Substituti on Allowed, CAP cefdinir 2011-0 Yes Prashanth 300 mg, 1 Mem oria 300 mg oral 2-05 Raj cap, PO, l capsule 15:56: Tam Q12H, 28 Herm hawa 51 cap, Substituti on Allowed, CAP Flagyl 500 2011-0 Yes Prashanth 500 mg, 1 M emoria mg oral 2-05 Raj tab, PO, l tablet 15:55: Tam Q8H, 42 Shantanu n 54 tab, Substituti on Allowed, TAB Flagyl 500 2011-0 Yes Prashanth 500 mg, 1 M emoria mg oral 2-05 Raj tab, PO, l tablet 15:55: Tam Q8H, 42 Shantanu n 54 tab, Substituti on Allowed, TAB ibuprofen 2011-0 No Prashanth 400 mg, 1 Me moria 2-05 Raj tab, l 12:13: Tam Route: PO, Keiry nn 00 Drug form: TAB, Q4H, PRN Pain, Start date: 10/01/11 6:13:00, Duration: 30 day, Stop date: 10/31/11 6:12:00 ibuprofen 2011-0 No Prashanth 400 mg, 1 Me moria 2-05 Raj tab, l 12:13: Tam Route: PO, Keiry nn 00 Drug form: TAB, Q4H, PRN Pain, Start date: 10/01/11 6:13:00, Duration: 30 day, Stop date: 10/31/11 6:12:00 Tylenol 2011-0 No Prashanth 650 mg, Memori a 2-05 Raj Route: PO, l 11:59: Tam Drug form: Keiry nn 00 TAB, Q6H, PRN Pain, Start date: 10/01/11 5:59:00, Duration: 30 day, Stop date: 10/31/11 5:58:00 Tylenol 2011-0 No Prashanth 650 mg, Memori a 2-05 Raj Route: PO, l 11:59: Tam Drug form: Keiry nn 00 TAB, Q6H, PRN Pain, Start date: 10/01/11 5:59:00, Duration: 30 day, Stop date: 10/31/11 5:58:00 Tylenol 2011-0 No Prashanth 650 mg, Memori a 2-05 Raj 20.3 mL, l 11:27: Tam Route: PO, Keiry nn 00 Drug form: LIQ, ONCE, Start date: 10/01/11 5:27:00, Stop date: 10/01/11 5:27:00 Tylenol 2011-0 No Prashanth 650 mg, Memori a 2-05 Raj 20.3 mL, l 11:27: Tam Route: PO, Keiry nn 00 Drug form: LIQ, ONCE, Start date: 10/01/11 5:27:00, Stop date: 10/01/11 5:27:00 heparin 2011-0 No Prashanth 5,000 Memoria 5000 2-05 Raj unit, 1 l units/mL 06:00: Tam mL, Route: H ermann injectable 00 SUB-Q, solution Drug form: INJ, Q8H, Start date: 10/01/11 0:00:00, Duration: 30 day, Stop date: 10/30/11 16:00:00 heparin 2011- No Prashanth 5,000 Memoria 5000 2-05 Raj unit, 1 l units/mL 06:00: Tam mL, Route: H ermann injectable 00 SUB-Q, solution Drug form: INJ, Q8H, Start date: 10/01/11 0:00:00, Duration: 30 day, Stop date: 10/30/11 16:00:00 ondansetron No Prashanth 4 mg, 2 Me moria 2-05 Raj mL, Route: l 05:43: Tam IVP, Drug Shantanu n 00 form: INJ, Q6H, PRN Nausea & Vomiting, Start date: 09/30/11 23:43:00, Duration: 30 day, Stop date: 10/30/11 23:42:00 ondansetron 2011- No Prashanth 4 mg, 2 Me moria 2-05 Raj mL, Route: l 05:43: Tam IVP, Drug Shantanu n 00 form: INJ, Q6H, PRN Nausea & Vomiting, Start date: 09/30/11 23:43:00, Duration: 30 day, Stop date: 10/30/11 23:42:00 magnesium 2011-0 No Myriam 2 gm, 50 Me moria sulfate 2-05 Gabriella mL, Route: l 01:39: [place] IVPB, Drug Her brenner 00 form: INJ, ONCE, Total dose = 2 gm, Start date: 09/30/11 19:39:00, Duration: 1 doses or times, Stop date: 09/30/11 19:39:00 magnesium 2011-0 No Myriam 2 gm, 50 Me moria sulfate 2-05 Gabriella mL, Route: l 01:39: Ninoska IVPB, Drug Her brenner 00 form: INJ, ONCE, Total dose = 2 gm, Start date: 09/30/11 19:39:00, Duration: 1 doses or times, Stop date: 09/30/11 19:39:00 morphine 2011-0 No Marianna Jocelyne 4 mg, Me moria Sulfate 2-04 [place] Route: l 23:55: IVP, ONCE, [place] 00 Priority: STAT, Start date: 09/30/11 17:55:00, Stop date: 09/30/11 17:55:00 morphine 2011-0 No Marianna Jocelyne 4 mg, Me moria Sulfate 2-04 [place] Route: l 23:55: IVP, ONCE, Priority: STAT, Start date: 09/30/11 17:55:00, Stop date: 09/30/11 17:55:00 ibuprofen 2011-0 No Marianna Jocelyne 400 mg, 1 Memoria 400 mg oral 2-04 [place] tab, l tablet 22:27: Route: PO, Keiry nn Drug form: TAB, ONCE, Priority: STAT, Start date: 09/30/11 16:27:00, Stop date: 09/30/11 16:27:00 ibuprofen 2011-0 No Marianna Jocelyne 400 mg, 1 Memoria 400 mg oral 2-04 [place] tab, l tablet 22:27: Route: PO, Keiry nn Drug form: TAB, ONCE, Priority: STAT, Start date: 09/30/11 16:27:00, Stop date: 09/30/11 16:27:00 Tylenol 2011-0 No Prashanth 650 mg, 2 Danilo gricelda 2-04 Raj tab, l 22:23: Tam Route: PO, Keiry nn 00 Drug form: TAB, Q4H, PRN Fever, Start date: 09/30/11 16:23:00, Duration: 30 day, Stop date: 10/30/11 16:22:00 Tylenol 2012-0 No Prashanth 650 mg, 2 Danilo gricelda 2-04 Raj tab, l 22:23: Tam Route: PO, Keiry nn Drug form: TAB, Q4H, PRN Fever, Start date: 09/30/11 16:23:00, Duration: 30 day, Stop date: 10/30/11 16:22:00 ibuprofen No Prashanth 600 mg, 1 Me moria 600 mg oral 2-04 Raj tab, PO, l tablet 21:48: Tam Q6H, PRN, Herm hawa 05 30 tab, Pain, Substituti on Allowed, take with foodtake with food ibuprofen No Prashanth 600 mg, 1 Me moria 600 mg oral 2-04 Raj tab, PO, l tablet 21:48: Tam Q6H, PRN, Herm hawa 05 30 tab, Pain, Substituti on Allowed, take with foodtake with food [place] 325 No Prashanth 1-2 tab, M emoria oral tablet 2-04 Raj PO, Q6H, l 21:46: Tam PRN, 12 27 tab, Pain, Substituti on Allowed, Maintenanc e [place] 5325 No Prashanth 1-2 tab, M emoria oral tablet 2-04 Raj PO, Q6H, l 21:46: Tam PRN, 12 [place] 27 tab, Pain, Substituti on Allowed, Maintenanc e Zofran ODT No Prashanth 4 mg, 1 Mem oria 4 mg oral 2-04 Raj tab, PO, l tablet, 21:46: Tam BID, 10 Keiry nn disintegrat 18 tab, ing Substituti on Allowed, Dissolve tab under tongueDiss olve tab under tongue Zofran ODT No Prashanth 4 mg, 1 Mem oria 4 mg oral 2-04 Raj tab, PO, l tablet, 21:46: Tam BID, 10 Keiry nn disintegrat 18 tab, ing Substituti on Allowed, Dissolve tab under tongueDiss olve tab under tongue Sodium No Marianna Jocelyne 1,000 mL, Memoria Chloride 2-04 [place] Rate: l 0.9% 18:26: 1,000 (Bolus) IV 00 ml/hr, 1000 mL Infuse over: 1 hr, Route: IV, Total Volume: 1,000, Bolus Dose, Priority: STAT, Start date: 09/30/11 12:26:00, Duration: 1 doses or times, Stop date: 09/30/11 13:25:00 Sodium 2011-0 No Marianna Jocelyne 1,000 mL, Memoria Chloride 2-04 [place] Rate: l 0.9% 18:26: 1,000 (Bolus) IV 00 ml/hr, 1000 mL Infuse over: 1 hr, Route: IV, Total Volume: 1,000, Bolus Dose, Priority: STAT, Start date: 09/30/11 12:26:00, Duration: 1 doses or times, Stop date: 09/30/11 13:25:00 acetaminoph 2011-0 No Marianna Jocelyne 650 mg, Memoria en 2-04 [place] Route: PO, l 18:19: Drug form: [place] 00 TAB, ONCE, Priority: STAT, Start date: 09/30/11 12:19:00, Stop date: 09/30/11 12:19:00 acetaminoph 2011-0 No Marianna Jocelyne 650 mg, Memoria en 2-04 [place] Route: PO, l 18:19: Drug form: 00 TAB, ONCE, Priority: STAT, Start date: 09/30/11 12:19:00, Stop date: 09/30/11 12:19:00 Zofran ODT 2011-0 No Marianna Jocelyne 4 mg, 1 Memoria 2-04 [place] tab, l 16:46: Route: PO, 00 Drug form: TABDIS, ONCE, Start date: 09/30/11 10:46:00, Stop date: 09/30/11 10:46:00 Zofran ODT 2011-0 No Marianna Jocelyne 4 mg, 1 Memoria 2-04 [place] tab, l 16:46: Route: PO, 00 Drug form: TABDIS, ONCE, Start date: 09/30/11 10:46:00, Stop date: 09/30/11 10:46:00 Sodium 2011-0 No Marianna Jocelyne 1,000 mL, Memoria Chloride 2-04 [place] Rate: l 0.9% 16:37: 1,000 (Bolus) IV 00 ml/hr, 1,000 mL Infuse over: 1 hr, Route: IV, Total Volume: 1,000, Bolus Dose, Priority: STAT, Start date: 09/30/11 10:37:00, Duration: 1 doses or times, Stop date: 09/30/11 11:36:00 Sodium 2011-0 No Marianna Jocelyne 1,000 mL, Memoria Chloride 2-04 [place] Rate: l 0.9% 16:37: 1,000 (Bolus) IV 00 ml/hr, 1,000 mL Infuse over: 1 hr, Route: IV, Total Volume: 1,000, Bolus Dose, Priority: STAT, Start date: 09/30/11 10:37:00, Duration: 1 doses or times, Stop date: 09/30/11 11:36:00 Nexium 2011-0 Yes Substituti Memor ia 2-04 on Allowed l 15:56: 54 Nexium 2011-0 Yes Substituti Memor ia 2-04 on Allowed l 15:56: 54 metFORmin 2011-0 No Substituti Me moria 2-04 on Allowed l 15:56: 49 metFORmin 2011-0 No Substituti Me moria 2-04 on Allowed l 15:56: 49 Norvasc 2011-0 Yes Substituti Danilo gricelda 2-04 on Allowed l 15:56: 45 Norvasc 2011-0 Yes Substituti Danilo gricelda 2-04 on Allowed l 15:56: 45 lisinopril 2011-0 Yes Substituti M emoria 2-04 on Allowed l 15:56: 42 lisinopril 2011-0 Yes Substituti M emoria 2-04 on Allowed l 15:56: 42 Protonix 2011-0 No Kashif B. 40 mg, 1 Mem oria - [place] tab, l 22:30: Route: PO, 00 Drug form: ECTAB, Before Dinner, Start date: 09/23/11 16:30:00, Duration: 30 day, Stop date: 10/22/11 16:30:00 Protonix 2011-0 No Kashif B. 40 mg, 1 Mem oria - [place] tab, l 22:30: Route: PO, 00 Drug form: ECTAB, Before Dinner, Start date: 09/23/11 16:30:00, Duration: 30 day, Stop date: 10/22/11 16:30:00 Zofran 4 mg 2011-0 Yes Veronica 4 mg, 1 Memoria oral tablet 09-23 [place] tab, PO, l 16:12: [place] BID, PRN, Herm hawa 50 10 tab, as needed for nausea/vom iting, Substituti on Allowed Zofran 4 mg Yes Veronica 4 mg, 1 Memoria oral tablet 09-23 [place] tab, PO, l 16:12: [place] BID, PRN, Herm hawa 50 10 tab, as needed for nausea/vom iting, Substituti on Allowed Ultram 50 Yes Veronica 50 mg, 1 Memoria mg oral 09-23 [place] tab, PO, l tablet 16:12: [place] Q6H, PRN, He rmann 33 20 tab, Pain, Substituti on Allowed, TAB Ultram 50 Yes Veronica 50 mg, 1 Memoria mg oral 09-23 [place] tab, PO, l tablet 16:12: [place] Q6H, PRN, He rmann 33 20 tab, Pain, Substituti on Allowed, TAB Augmentin Yes Veronica 1 tab, PO, Memoria 875 mg oral 09-23 [place] Q12H, 10 l tablet 16:12: Jodie tab, 06 Substituti on Allowed, Maintenanc e, TAB Augmentin Yes Veronica 1 tab, PO, Memoria 875 mg oral 09-23 [place] Q12H, 10 l tablet 16:12: Jodie tab, 06 Substituti on Allowed, Maintenanc e, TAB Nexium No Kashif B. 40 mg, Memoria 09-23 [place] Route: PO, l 15:00: Daily, Start date: 09/23/11 9:00:00, Duration: 30 day, Stop date: 10/22/11 9:00:00 Nexium 2011-0 No Kashif B. 40 mg, Memoria 09-23 [place] Route: PO, l 15:00: Daily, Start date: 09/23/11 9:00:00, Duration: 30 day, Stop date: 10/22/11 9:00:00 Benadryl No Kashif B. 25 mg, 1 Mem oria 09-23 [place] cap, l 07:03: Route: PO, 00 Drug form: CAP, ONCE, Start date: 09/23/11 1:03:00, Stop date: 09/23/11 1:03:00 Benadryl 2011-0 No Kashif B. 25 mg, 1 Mem oria 09-23 [place] cap, l 07:03: Route: PO, [place] 00 Drug form: CAP, ONCE, Start date: 09/23/11 1:03:00, Stop date: 09/23/11 1:03:00 heparin 2011-0 No Veronica 5,000 Mem oria - [place] unit, 1 l 03:00: [place] mL, Route: Her brenner 00 SUB-Q, Drug form: INJ, Q12H, Start date: 09/22/11 21:00:00, Duration: 30 day, Stop date: 10/22/11 9:00:00 Augmentin 2011-0 No Veronica 1 tab, Memoria 875 mg oral 09-23 [place] Route: PO, l tablet 03:00: [place] Drug Form: H ermann 00 TAB, Q12H, Start date: 09/22/11 21:00:00, Duration: 30 day, Stop date: 10/22/11 9:00:00 heparin 2011-0 No Veronica 5,000 Mem oria 09-23 [place] unit, 1 l 03:00: [place] mL, Route: Her brenner 00 SUB-Q, Drug form: INJ, Q12H, Start date: 09/22/11 21:00:00, Duration: 30 day, Stop date: 10/22/11 9:00:00 Augmentin 2011-0 No Veronica 1 tab, Memoria 875 mg oral 09-23 [place] Route: PO, l tablet 03:00: [place] Drug Form: H ermann 00 TAB, Q12H, Start date: 09/22/11 21:00:00, Duration: 30 day, Stop date: 10/22/11 9:00:00 pneumococca 2011-0 No SYSTEM 0.5 ml, M emoria l 23-valent 09-22 SYSTEM Route: IM, l vaccine 15:00: Drug Form: Herm hawa 00 INJ, Start date: 09/22/11 9:00:00, Stop date: 09/22/11 9:00:00 pneumococca 2012-0 No SYSTEM 0.5 ml, M alya l 23-valent 1-27 SYSTEM Route: IM, l vaccine 15:00: Drug Form: Herm hawa 00 INJ, Start date: 09/22/11 9:00:00, Stop date: 09/22/11 9:00:00 Zofran 2012-0 No Veronica 4 mg, 2 Me moria 1-26 [place] mL, Route: l 17:34: Jodie IVP, Drug Herm hawa 00 form: INJ, Q8H, PRN Nausea, Start date: 09/21/11 11:34:00, Duration: 30 day, Stop date: 10/21/11 11:33:00 Zofran 2012-0 No Veronica 4 mg, 2 Me moria 1-26 [place] mL, Route: l 17:34: [place] IVP, Drug Herm hawa 00 form: INJ, Q8H, PRN Nausea, Start date: 09/21/11 11:34:00, Duration: 30 day, Stop date: 10/21/11 11:33:00 Ultram 50 2011-0 No Veronica 50 mg, 1 Memoria mg oral - [place] tab, l tablet 14:36: Jodie Route: PO, H ermann 00 Drug form: TAB, Q6H, PRN Pain, Start date: 09/21/11 8:36:00, Duration: 30 day, Stop date: 10/21/11 8:35:00 Tylenol 2011-0 No Veronica 650 mg, 2 Memoria - [place] tab, l 14:36: [place] Route: PO, Her brenner 00 Drug form: TAB, Q6H, PRN Pain, Start date: 09/21/11 8:36:00, Duration: 30 day, Stop date: 10/21/11 8:35:00 Ultram 50 2012-0 No Veronica 50 mg, 1 Memoria mg oral - [place] tab, l tablet 14:36: [place] Route: PO, H ermann 00 Drug form: TAB, Q6H, PRN Pain, Start date: 09/21/11 8:36:00, Duration: 30 day, Stop date: 10/21/11 8:35:00 Tylenol 2012-0 No Veronica 650 mg, 2 Memoria 09-21 [place] tab, l 14:36: [place] Route: PO, Her brenner 00 Drug form: TAB, Q6H, PRN Pain, Start date: 09/21/11 8:36:00, Duration: 30 day, Stop date: 10/21/11 8:35:00 Zosyn 2011-0 No Veronica 3.375 gm, Tere emoria 09-21 [place] Route: l 14:00: Jodie IVPB, Drug Her brenner 00 form: PDR/INJ, ABXQ6H, Start date: 09/21/11 8:00:00, Duration: 30 day, Stop date: 10/21/11 2:00:00 Zosyn 2011-0 No Veronica 3.375 gm, Tere gonzalezria 09-21 [place] Route: l 14:00: [place] IVPB, Drug Her brenner 00 form: PDR/INJ, ABXQ6H, Start date: 09/21/11 8:00:00, Duration: 30 day, Stop date: 10/21/11 2:00:00 insulin No Kashif B. 3 unit, Memor ia aspart 09-21 [place] 0.03 mL, l 13:30: Route: [place] 00 SUB-Q, Drug form: SOLN, TID-Before Meals, PRN Blood Glucose Results, Start date: 09/21/11 7:30:00, Duration: 30 day, Stop date: 10/21/11 7:29:00 Dextrose No Kashif B. 12.5 gm, Mem oria 50% Syringe 09-21 [place] 25 mL, l 13:30: Route: 00 IVP, Drug Form: INJ, PRN, PRN Blood Glucose Results, Start date: 09/21/11 7:30:00, Duration: 30 day, Stop date: 10/21/11 7:29:00 glucagon 2011-0 No Kashif B. 1 mg, Memori a 09-21 [place] Route: IM, l 13:30: Drug form: [place] 00 PDR/INJ, PRN, PRN Blood Glucose Results, Start date: 09/21/11 7:30:00, Duration: 30 day, Stop date: 10/21/11 7:29:00 insulin 2011- No Kashif B. 3 unit, Memor ia aspart 09-21 [place] 0.03 mL, l 13:30: Route: [place] 00 SUB-Q, Drug form: SOLN, TID-Before Meals, PRN Blood Glucose Results, Start date: 09/21/11 7:30:00, Duration: 30 day, Stop date: 10/21/11 7:29:00 Dextrose 2011- No Kashif B. 12.5 gm, Mem oria 50% Syringe 09-21 [place] 25 mL, l 13:30: Route: 00 IVP, Drug Form: INJ, PRN, PRN Blood Glucose Results, Start date: 09/21/11 7:30:00, Duration: 30 day, Stop date: 10/21/11 7:29:00 glucagon 2011- No Kashif B. 1 mg, Memori a 09-21 [place] Route: IM, l 13:30: Drug form: 00 PDR/INJ, PRN, PRN Blood Glucose Results, Start date: 09/21/11 7:30:00, Duration: 30 day, Stop date: 10/21/11 7:29:00 Zosyn 2011-0 No Ajita 3.375 gm, Memori a 09-21 Liz Route: l 11:54: Smart IVPB, [place] 00 ONCE, Priority: STAT, Start date: 09/21/11 5:54:00, Stop date: 09/21/11 5:54:00 Zosyn 2011-0 No Ajita 3.375 gm, Memori a 09-21 Liz Route: l 11:54: Smart IVPB, [place] 00 ONCE, Priority: STAT, Start date: 09/21/11 5:54:00, Stop date: 09/21/11 5:54:00 morphine 2011-0 No Ajita 4 mg, 1 Memor ia Sulfate 09-21 Liz mL, Route: l 10:01: Bing IVP, Drug [place] 00 form: INJ, ONCE, Priority: STAT, Start date: 09/21/11 4:01:00, Stop date: 09/21/11 4:01:00 morphine 2011-0 No Ajita 4 mg, 1 Memor ia Sulfate 09-21 Liz mL, Route: l 10:01: Smart IVP, Drug [place] 00 form: INJ, ONCE, Priority: STAT, Start date: 09/21/11 4:01:00, Stop date: 09/21/11 4:01:00 Sodium 2011-0 No Ajita 1,000 mL, Memor ia Chloride 09-21 Liz Rate: l 0.9% 08:14: Bing 1,000 [place] (Bolus) IV 00 ml/hr, 1,000 mL Infuse over: 1 hr, Route: IV, Total Volume: 1,000, Bolus Dose, Priority: STAT, Start date: 09/21/11 2:14:00, Duration: 1 doses or times, Stop date: 09/21/11 3:13:00 Sodium 2011-0 No Ajita 1,000 mL, Memor ia Chloride 09-21 Liz Rate: l 0.9% 08:14: Bing 1,000 [place] (Bolus) IV 00 ml/hr, 1,000 mL Infuse over: 1 hr, Route: IV, Total Volume: 1,000, Bolus Dose, Priority: STAT, Start date: 09/21/11 2:14:00, Duration: 1 doses or times, Stop date: 09/21/11 3:13:00 morphine 2011-0 No Ajita 4 mg, 1 Memor ia Sulfate 09-21 Liz mL, Route: l 06:55: Bing IVP, Drug [place] 00 form: INJ, ONCE, Priority: STAT, Start date: 09/21/11 0:55:00, Stop date: 09/21/11 0:55:00 ondansetron 2011-0 No Ajita 4 mg, 2 Me moria - Liz mL, Route: l 06:55: Bing IVP, Drug [place] 00 form: INJ, ONCE, Priority: STAT, Start date: 09/21/11 0:55:00, Stop date: 09/21/11 0:55:00 morphine 2011-0 No Ajita 4 mg, 1 Memor ia Sulfate - Liz mL, Route: l 06:55: Smart IVP, Drug 00 form: INJ, ONCE, Priority: STAT, Start date: 09/21/11 0:55:00, Stop date: 09/21/11 0:55:00 ondansetron 2011-0 No Ajita 4 mg, 2 Me moria 1-26 Liz mL, Route: l 06:55: Smart IVP, Drug 00 form: INJ, ONCE, Priority: STAT, Start date: 09/21/11 0:55:00, Stop date: 09/21/11 0:55:00 Sodium 2011-0 No Ajita 1,000 mL, Memor ia Chloride 09-21 Liz Rate: l 0.9% 06:47: Smart 1,000 (Bolus) IV 00 ml/hr, 1,000 mL Infuse over: 1 hr, Route: IV, Total Volume: 1,000, Bolus Dose, Priority: STAT, Start date: 09/21/11 0:47:00, Duration: 1 doses or times, Stop date: 09/21/11 1:46:00 Sodium 2011-0 No Ajita 1,000 mL, Memor ia Chloride 09-21 Liz Rate: l 0.9% 06:47: Smart 1,000 (Bolus) IV 00 ml/hr, 1,000 mL Infuse over: 1 hr, Route: IV, Total Volume: 1,000, Bolus Dose, Priority: STAT, Start date: 09/21/11 0:47:00, Duration: 1 doses or times, Stop date: 09/21/11 1:46:00 Zofran 2011-0 No Ajita 4 mg, 2 Memoria 1-26 Liz mL, Route: l 05:49: Smart IVP, Drug 00 form: INJ, ONCE, Priority: STAT, Start date: 09/20/11 23:49:00, Stop date: 09/20/11 23:49:00 Zofran 2011-0 No Ajita 4 mg, 2 Memoria 1-26 Liz mL, Route: l 05:49: Smart IVP, Drug [place] 00 form: INJ, ONCE, Priority: STAT, Start date: 09/20/11 23:49:00, Stop date: 09/20/11 23:49:00 Sodium 2011-0 No Ajita 500 mL, Memoria Chloride - Liz Rate: 500 l 0.9% 05:45: Smart ml/hr, (Bolus) IV 00 Infuse 500 mL over: 1 hr, Route: IV, Total Volume: 500, Bolus dose, Priority: STAT, Start date: 09/20/11 23:45:00, Duration: 1 doses or times, Stop date: 09/21/11 0:44:00 Saline 2011-0 No Ajita 5 ml, Memoria Flush 0.9% 09-21 Liz Route: l 05:45: Smart IVP, Drug 00 Form: INJ, PRN, PRN Line Flush, Start date: 09/20/11 23:45:00, Duration: 30 day, Stop date: 10/20/11 23:44:00 Sodium 2011- No Ajita 500 mL, Memoria Chloride 09-21 Liz Rate: 500 l 0.9% 05:45: Smart ml/hr, (Bolus) IV 00 Infuse 500 mL over: 1 hr, Route: IV, Total Volume: 500, Bolus dose, Priority: STAT, Start date: 09/20/11 23:45:00, Duration: 1 doses or times, Stop date: 09/21/11 0:44:00 Saline 2011- No Ajita 5 ml, Memoria Flush 0.9% 09-21 Liz Route: l 05:45: Smart IVP, Drug 00 Form: INJ, PRN, PRN Line Flush, Start date: 09/20/11 23:45:00, Duration: 30 day, Stop date: 10/20/11 23:44:00 metFORmin Yes Substituti Me moria 1-26 on Allowed l 05:20: 02 metFORmin Yes Substituti Me moria 1-26 on Allowed l 05:20: 02 Immunizations Ordered Immunization Filled Immunization Date Status Commen ts Source Name Name pneumococcal 2011-09-23 Completed [facility] 23-valent vaccine 03:14:00 pneumococcal 2011-09-23 Completed [facility] 23-valent vaccine 03:14:00 pneumococcal 2011-09-23 Completed [facility] 23-valent vaccine 03:14:00 pneumococcal 2011-09-23 Completed [facility] 23-valent vaccine 03:14:00 Vital Signs Vital Name Observation Time Observation Value Comments Source Systolic blood 2021-09-19 17:39:00 148 mm[Hg] Univer sity of pressure [facility] Diastolic blood 2021-09-19 17:39:00 90 mm[Hg] Unive rsity of pressure [facility] Heart rate 2021-09-19 17:36:00 69 [facility] 2021-09-19 17:36:00 36.22 Luz Maria [facility] Body height 2021-09-19 17:36:00 177.8 cm [facility] Body weight 2021-09-19 17:36:00 95.482 kg [facility] BMI 2021-09-19 17:36:00 30.20 kg/m2 [facility] Oxygen saturation in 2021-09-19 17:36:00 98 /min [facility] Arterial blood by [facility] Pulse oximetry Branch Systolic (mm Hg) 2022-02-17 16:37:00 Danilo rial [place] Diastolic (mm Hg) 2022-02-17 16:37:00 Mem orial [place] Heart Rate 2022-02-17 16:37:00 [facility] [place] Respitory Rate 2022-02-17 16:37:00 Memori al Height 2022-02-17 16:37:00 175.26 cm [facility] [place] Weight 2022-02-17 16:37:00 [facility] BMI Calculated 2022-02-17 16:37:00 Memori al [place] Systolic (mm Hg) 2022-01-24 13:06:00 Danilo rial [place] Diastolic (mm Hg) 2022-01-24 13:06:00 Mem orial Heart Rate 2022-01-24 13:06:00 [facility] Respitory Rate 2022-01-24 13:06:00 Memori al [place] Height 2022-01-24 13:06:00 175.26 cm [facility] Weight 2022-01-24 13:06:00 [facility] [place] BMI Calculated 2022-01-24 13:06:00 Memori al [place] Systolic (mm Hg) 2022-01-12 14:35:00 Danilo rial [place] Diastolic (mm Hg) 2022-01-12 14:35:00 Mem orial Heart Rate 2022-01-12 14:35:00 [facility] [place] Respitory Rate 2022-01-12 14:35:00 Memori al [place] Height 2022-01-12 14:35:00 175.26 cm [facility] [place] Weight 2022-01-12 14:35:00 [facility] BMI Calculated 2022-01-12 14:35:00 Memori al [place] Systolic (mm Hg) 2021-12-15 14:00:00 Danilo rial [place] Diastolic (mm Hg) 2021-12-15 14:00:00 Mem orial [place] Heart Rate 2021-12-15 14:00:00 [facility] [place] Respitory Rate 2021-12-15 14:00:00 Memori al [place] Height 2021-12-15 14:00:00 177.8 cm [facility] [place] Weight 2021-12-15 14:00:00 [facility] BMI Calculated 2021-12-15 14:00:00 Memori al [place] Systolic (mm Hg) 2020-12-17 18:06:00 Danilo rial Diastolic (mm Hg) 2020-12-17 18:06:00 Mem orial [place] Heart Rate 2020-12-17 18:06:00 [facility] [place] Respitory Rate 2020-12-17 18:06:00 Memori al Weight 2020-12-17 18:06:00 [facility] [place] Systolic (mm Hg) 2019-05-27 20:25:00 Danilo rial Diastolic (mm Hg) 2019-05-27 20:25:00 Mem orial [place] Heart Rate 2019-05-27 20:25:00 [facility] [place] Respitory Rate 2019-05-27 20:25:00 Memori al [place] Height 2019-05-27 20:25:00 175.26 cm [facility] Weight 2019-05-27 20:25:00 [facility] BMI Calculated 2019-05-27 20:25:00 Memori al Systolic (mm Hg) 2011-10-01 14:00:00 Danilo rial Heart Rate 2011-10-01 14:00:00 [facility] Diastolic (mm Hg) 2011-10-01 14:00:00 Mem orial [place] Temperature Oral (F) 2011-10-01 14:00:00 98.4 F [facility] [place] Temperature Oral (F) 2011-10-01 10:44:00 100.3 F [facility] Heart Rate 2011-10-01 10:44:00 [facility] Systolic (mm Hg) 2011-10-01 10:44:00 Danilo rial [place] Diastolic (mm Hg) 2011-10-01 10:44:00 Mem orial [place] Respitory Rate 2011-10-01 10:44:00 Memori al [place] Heart Rate 2011-10-01 03:28:00 [facility] [place] Temperature Oral (F) 2011-10-01 03:28:00 98.1 F [facility] Respitory Rate 2011-10-01 03:28:00 Memori al Diastolic (mm Hg) 2011-10-01 03:28:00 Mem orial Systolic (mm Hg) 2011-10-01 03:28:00 Daniol rial Respitory Rate 2011-10-01 02:03:00 Memori al Height 2011-09-30 15:52:00 177.80 cm [facility] Weight 2011-09-30 15:52:00 [facility] Diastolic (mm Hg) 2011-09-23 14:15:00 Mem orial Temperature Oral (F) 2011-09-23 14:15:00 98.8 F [facility] [place] Heart Rate 2011-09-23 14:15:00 [facility] [place] Systolic (mm Hg) 2011-09-23 14:15:00 Danilo rial [place] Respitory Rate 2011-09-23 14:15:00 Memori al Temperature Oral (F) 2011-09-23 10:00:00 98.6 F [facility] Heart Rate 2011-09-23 10:00:00 [facility] Respitory Rate 2011-09-23 10:00:00 Memori al [place] Diastolic (mm Hg) 2011-09-23 10:00:00 Mem o[facility] Systolic (mm Hg) 2011-09-23 10:00:00 Danilo [facility] Diastolic (mm Hg) 2011-09-23 04:00:00 [facility] [place] Systolic (mm Hg) 2011-09-23 04:00:00 [facility]ilo [facility] Respitory Rate 2011-09-23 04:00:00 [facility] [place] Temperature Oral (F) 2011-09-23 04:00:00 97.6 F [facility] Rate 2011-09-23 04:00:00 [facility] Weight 2011-09-21 04:26:00 [facility] Height 2011-09-21 04:26:00 177.80 cm [facility] Procedures Procedure Date / Time Performing Clinician Source Performed CONSENT/REFUSAL FOR 2021-09-19 17:27:07 Doctor Unassigned, No [facility] DIAGNOSIS AND TREATMENT Name [facility] ASSIGNMENT OF BENEFITS 2021-09-19 17:26:48 Doctor Unassigned, No [facility] Name [facility] [id number] 2021-01-21 00:00:00 [facility] [id number] 2021-01-21 00:00:00 [facility] [id number] 2021-01-21 00:00:00 [facility] [id number] 2021-01-21 00:00:00 [facility] [id number] 2021-01-21 00:00:00 [facility] [id number] 2021-01-21 00:00:00 [facility] [id number] 2021-01-21 00:00:00 [facility] [id number] 2021-01-21 00:00:00 [facility] [id number] 2021-01-15 00:00:00 [facility] [id number] 2021-01-15 00:00:00 [facility] 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 Plan of Care Planned Activity Planned Date Details Comments Source Future Scheduled 2021-09-[address] [facility] 00:00:00 (procedure) [code = [facility] [id number]] Future Scheduled 2021-04-[address] [facility] Test 00:00:00 (#1) [code = [facility] [place] INFLUENZA VACCINE (#1)] Future Scheduled 2020-08-[address] [facility] Test 00:00:00 (12+) [code = [facility] Center DEPRESSION SCREENING (12+)] Future Scheduled 2009 SHINGLES VACCINES ([address] [facility] Test 00:00:00 of 2) [code = [facility] Center SHINGLES VACCINES (1 of 2)] Future Scheduled 1978 DTAP/TDAP/TD VACCINES [facility] 00:00:00 (1 - Tdap) [code = Medical C enter DTAP/TDAP/TD VACCINES (1 - Tdap)] Future Scheduled 1971 COVID-19 VACCINE (1) [facility] Test 00:00:00 [code = COVID-[address] VACCINE (1)] Future Scheduled [address] [facility] colon (procedure) [code = [id number]] Encounters Start End Encounter Admission Attending Care Care Encounter Source Date/Time Date/Time Type Type Clinicians Facility Department ID 2021-06-13 Inpatient HANNAH MarcosWU [facility] [id number] [facility] 09:14:51 [facility] [facility] 2022-04-28 2022-04-28 Outpatient AO_Mohr_Rob AOSM AOSM [id number] Mary Jo 00:00:00 00:00:00 Yovani [id number] [facility] 2022-04-27 2022-04-27 Outpatient AO_Mohr_Rob AOSM AOSM [id number] Mary Jo 00:00:00 00:00:00 Yovani [id number] [facility] 2022-04-26 2022-04-26 Outpatient FOG_Bennett AOSM AOSM [id number] Mary Jo 00:00:00 00:00:00 _Petra [id number] [facility] 2022-04-24 2022-04-24 Outpatient FOG_Bennett AOSM AOSM [id number] Mary Jo 00:00:00 00:00:00 _Petra [id number] [facility] 2022-04-11 2022-04-11 Outpatient JUAN MARTINEZ [id number] Memoria 11:00:00 11:00:00 11 l 2022-04-11 2022-04-11 Outpatient JUAN MARTINEZ [id number] Memoria 11:00:00 11:00:00 11 l 2022-02-17 2022-02-18 Outpatient nullFlavo MNA [id number] Memoria 16:45:00 04:59:59 r Neurology 10 l Traci Mccrary 2022-02-17 2022-02-18 Outpatient nullFlavo MNA [id number] Memoria 16:45:00 04:59:59 r Neurology 10 l Traci Mccrary 2022-02-17 2022-02-17 Outpatient Angelica [facility] [id number] 11:45:00 23:59:59 Hank 10 Kane 2022-02-17 2022-02-17 Outpatient MHIE MHIE [id number] Memoria 11:45:00 11:45:00 10 uriah Mccrary 2022-01-24 2022-01-25 Outpatient nullFlavo MNA [id number] Memoria 13:15:00 04:59:59 r Neurology 09 l Traci Mccrary 2022-01-24 2022-01-25 Outpatient nullFlavo MNA [id number] Memoria 13:15:00 04:59:59 r Neurology 09 l Traci [place] 2022-01-24 2022-01-24 Outpatient Angelica [facility] [id number] 08:15:00 23:59:59 Hank 09 Kane 2022-01-24 2022-01-24 Outpatient MHIE IE [id number] Memoria 08:15:00 08:15:00 09 uriah [place] 2022-01-12 2022-01-13 Outpatient nullFlavo MNA [id number] Memoria 14:45:00 04:59:59 r Neurology 08 l Traci Mccrary 2022-01-12 2022-01-13 Outpatient nullFlavo MNA [id number] Memoria 14:45:00 04:59:59 r Neurology 08 l Traci Bentleyann 2022-01-12 2022-01-12 Outpatient Angelica [facility] [id number] 09:45:00 23:59:59 Hank 08 Kane 2022-01-12 2022-01-12 Outpatient MHIE MHIE [id number] Memoria 09:45:00 09:45:00 08 uriah Mccrary 2021-12-15 2021-12-16 Outpatient nullFlavo MNA [id number] Memoria 14:00:00 04:59:59 r Neurology 07 l Traci Mccrary 2021-12-15 2021-12-16 Outpatient nullFlavo MNA [id number] Memoria 14:00:00 04:59:59 r Neurology 07 l Traci Mccrary 2021-12-15 2021-12-15 [facility] [id number] 09:00:00 23:59:59 Hank 07 Kane 2021-12-15 2021-12-15 Outpatient MHIE MHIE [id number] Memoria 09:00:00 09:00:00 07 uriah Mccrary 2021-12-12 2021-12-12 Meaghan Daley [facility] 1.2.840.114 [id number] Univers 00:00:00 00:00:00 Silvia HEALTH 350.1.13.10 it y of [facility] 4.2.7.2.686 Daryl as ANNIKA?BLEA [phone] [address] OFFICE [facility] 2021-10-11 2021-10-11 Meaghan Daley [facility] 1.2.840.114 [id number] Univers 00:00:00 00:00:00 Silvia HEALTH 350.1.13.10 it y of [place] 4.2.7.2.686 Daryl as ANNIKA?BLEA [phone] [address] 2021-10-11 2021-10-11 Meaghan Daley [facility] 1.2.840.114 [id number] Univers 00:00:00 00:00:00 Silvia HEALTH 350.1.13.10 it y of [facility] 4.2.7.2.686 Daryl as ANNIKA?BLEA [phone] [address] 2021-09-20 2021-09-20 Letter LUCÍA Hearn 1.2.840.114 [id number] Univers 00:00:00 00:00:00 (Out) Zenaida DANIELS 350.1.13.10 it y of [facility] 4.2.7.2.686 Daryl as [id number] [address] 2021-09-19 2021-09-19 [id number] Univers 12:15:00 12:15:00 SILVIA [facility] 2021-09-19 2021-09-19 [facility] [id number] Univers 11:20[facility]00 [facility]58[facility] 2021-[facility]19 [facility] 1.2.840.114 [id number] Univers 11:20:00 11:58:04 Care [facility] 350.1.13.10 it y of [place] 4.2.7.2.686 Adryl as NANIKA?BLEA [phone] [address] MEDICAL OFFICE BUILDING 2021-09-19 2021-09-19 Outpatient R [facility] [id number] Univers 11:20:00 11:20:00 [id number] [facility] 2021-09-19 2021-09-19 Orders Doctor LUCÍA 1.2.840.114 [id number] Univers 00:00:00 00:00:00 Only Unassigned, FRANCES 350.1.13.10 ity of [employer] [facility] 4.2.7.2.686 Daryl as [phone] [address] 2021-06-21 2021-06-21 Ambulatory nullFlavo MNA [id number] Memoria 20:45:00 20:45:00 Pre-Reg r Neurology 06 l Traci Mccrary 2021-06-21 2021-06-21 Ambulatory nullFlavo MNA [id number] Memoria 20:45:00 20:45:00 Pre-Reg r Neurology 06 l Traci Mccrary 2021-06-21 2021-06-21 Outpatient SONNYIE JUAN [id number] Memoria 15:45:00 15:45:00 06 l 2021-06-21 2021-06-21 Outpatient CJ Dominguez [id number] 15:45:00 15:45:00 Hank Middleton 2021-03-08 2021-03-08 Outpatient R TOBY [facility] [id number] Univers 12:30:00 12:30:00 DION fátima [facility] 2021-01-31 2021-02-02 Inpatient EM Brittanie [facility] [id number] [facility] 15:28:00 14:07:00 Jakub 85 [facility] 2021-01-31 2021-02-02 Inpatient EM Brittanie [facility] [id number] [facility] 15:28:00 14:07:00 Jakub 85 [facility] 2021-01-14 2021-01-29 Inpatient UR Hemant [facility] INTE [id number] [facility] 10:28:00 12:52:00 Jewels 60 [facility] 2021-01-24 2021-01-24 Outpatient UNKNOWN HCANW REF [id number] [facility] 07:50:00 07:50:00 35 [facility] 2021-02-14 2021-01-06 In[facility] [id number] 07:30:00 10:31:57 Momo [facility] 2020-12-28 2020-12-30 Outside nullFlavo MNA [id number] Memoria 14:19:23 04:59:59 Medical r Neurology 00 l Records Traci Mccrary 2020-12-28 2020-12-30 Outside nullFlavo MNA [id number] Memoria 14:19:23 04:59:59 Medical r Neurology 00 l Records Traci Mccrary 2020-12-28 2020-12-29 [facility]patient [facility] [id number] 09:19:23 23:59:59 00 2020-12-17 2020-12-18 Outpatient nullFlavo MNA [id number] Memoria 18:00:00 04:59:59 r Neurology 05 l Traci Mccrary 2020-12-17 2020-12-18 Outpatient nullFlavo MNA [id number] Memoria 18:00:00 04:59:59 r Neurology 05 l Traci Mccrary 2020-12-17 2020-12-17 Outpatient CJ Dominguez [facility] [id number] 13:00:00 23:59:59 Hank 05 [place] 2020-12-17 2020-12-17 Outpatient MHIE MHIE [id number] Memoria 13:00:00 13:00:00 05 uriah [place] 2020-08-25 2020-08-25 Outpatient RAGHAVELTONFLORMICHAEL [facility] [address] 06:58:00 06:58:00 _L [address] 2020-07-28 2020-07-28 Ambulatory nullFlavo MNA [id number] Memoria 15:00:00 15:00:00 Pre-Reg r Neurology 04 l Traci Bentleyann 2020-07-28 2020-07-28 Ambulatory nullFlavo MNA [id number] Memoria 15:00:00 15:00:00 Pre-Reg r Neurology 04 l [place] 2020-07-28 2020-07-28 Outpatient MHIE MHIE [id number] Memoria 09:00:00 09:00:00 04 uriah 2020-07-28 2020-07-28 Outpatient Angelica [facility] [id number] 09:00:00 09:00:00 Hank 04 Kane 2019-12-18 2019-12-18 Ambulatory nullFlavo MNA [id number] Memoria 20:45:00 20:45:00 Pre-Reg r Neurology 03 l Traci [place] 2019-12-18 2019-12-18 Ambulatory nullFlavo MNA [id number] Memoria 20:45:00 20:45:00 Pre-Reg r Neurology 03 l [place] 2019-12-18 2019-12-18 Outpatient MHIE MHIE [id number] Memoria 15:45:00 15:45:00 03 uriah [place] 2019-12-18 2019-12-18 Outpatient Angelica [facility] [id number] 15:45:00 15:45:00 Hank 03 [place] 2019-10-28 2019-10-28 Ambulatory nullFlavo MNA [id number] Memoria 22:00:00 22:00:00 Pre-Reg r Neurology 02 l [place] 2019-10-28 2019-10-28 Ambulatory nullFlavo MNA [id number] Memoria 22:00:00 22:00:00 Pre-Reg r Neurology 02 uriah [place] 2019-10-28 2019-10-28 Outpatient MHIE MHIE [id number] Memoria 16:00:00 16:00:00 02 uriah [place] 2019-10-28 2019-10-[address] [id number] 16:00:00 16:00:00 Hank Cristina [place] 2019-05-27 2019-05-28 Outpatient nullFlavo MNA [id number] Memoria 21:00:00 04:59:59 r Neurology 01 uriah [place] 2019-05-27 2019-05-28 Outpatient nullFlavo MNA [id number] Memoria 21:00:00 04:59:59 r Neurology 01 uriah [place] 2019-05-27 2019-05-27 [facility] [id number] 16:00:00 23:59:59 Hank Fede [place]leton 2019-05-27 2019-05-27 Outpatient MHIE MHIE [id number] Memoria 16:00:00 16:00:00 01 uriah 2019-04-24 2019-04-24 Outpatient MHIE MHIE [id number] Memoria 15:45:00 15:45:00 00 l [place] 2019-04-24 2019-04-24 Outpatient MHIE MHIE [id number] Memoria 15:45:00 15:45:00 00 l 2019-03-06 2019-04-05 OP Therapy nullFlavo [facility] [id number] Memoria 18:30:00 04:59:00 Patients r Evan 00 l Jeremiah [place] 2019-03-06 2019-04-05 OP Therapy nullFlavo SMR [id number] Memoria 18:30:00 04:59:00 Patients r Evan 00 l Jeremiah [place] 2019-03-06 2019-04-04 Outpatient Betty, 2.16.840. 2.16.840.1. 4 [id number] 13:30:00 23:59:00 Eliu Moran [id number] 5.55 2011-09-30 2011-10-01 OU nullFlavo [facility] [place] [id number] Memoria 23:43:00 11:55:00 r Medical 01 [facility] 2011-09-30 2011-10-01 OU nullFlavo [facility] [id number] Memoria 23:43:00 11:55:00 [facility] 2011-09-21 2011-09-23 Inpatient nullFlavo [facility] [id number] Memoria 05:51:00 12:20:00 [facility] 2011-09-21 2011-09-23 Inpatient nullFlavo [facility] [id number] Memoria 05:51:00 12:20:00 [facility] Results Test Description Test Time Test Comments Results Result Comments Source ANEMIA STUDY 2022-01-05 13:50:00 Test Item Value Reference Range Interpretation Comme nts Vitamin B12 Lvl (test code = Vitamin B12 Lvl) 912 256-1177 [facility] [id number] 13:50:00 Test Item Value Reference Range Interpretation Comments Total CK (test code = Total CK) 77 44-196 [facility] [id number] 13:50:00 Test Item Value Reference Range Interpretation Comments VITAMIN B1 (THIAMINE) WHOLE BLOOD (test 174 78-185 code = VITAMIN B1 (THIAMINE) WHOLE BLOOD) [facility] [id number] 13:50:00 Test Item Value Reference Range Interpretation Comments Vitamin A (test code = Vitamin A) 70 38-98 [id number] 13:50:00 Test Item Value Reference Range Interpretation Comments Sed Rate (test code = Sed Rate) 2 [id number] 13:50:00 Test Item Value Reference Range Interpretation Comments SONNY (test code = SONNY) NEGATIVE [id number] 13:50:00 Test Item Value Reference Range Interpretation Comments FLORENCE Ser Interp (test code = FLORENCE SEE COMMENT Ser Interp) [id number] 13:50:00 Test Item Value Reference Range Interpretation Comments CERULOPLASMIN (test code = 23 18-36 CERULOPLASMIN) [id number] 13:50:00 Test Item Value Reference Range Interpretation Comments Copper Lvl (test code = Copper Lvl) 85 70-175 [facility] [id number] 13:50:00 Test Item Value Reference Range Interpretation Comments Hgb A1C (test code = Hgb A1C) 8.3 [facility] [id number] 13:50:00 Test Item Value Reference Range Interpretation Comments Vitamin B12 Lvl (test code = Vitamin 783 462-5569 B12 Lvl) [facility] [id number] 13:50:00 Test Item Value Reference Range Interpretation Comments Total CK (test code = Total CK) 77 44-196 [facility] [id number] 13:50:00 Test Item Value Reference Range Interpretation Comments VITAMIN B1 (THIAMINE) WHOLE BLOOD (test 174 78-185 code = VITAMIN B1 (THIAMINE) WHOLE BLOOD) [facility] [id number] 13:50:00 Test Item Value Reference Range Interpretation Comments Vitamin A (test code = Vitamin A) 70 38-98 [id number] 13:50:00 Test Item Value Reference Range Interpretation Comments Sed Rate (test code = Sed Rate) 2 [facility]is[id number] 13:50:00 Test Item Value Reference Range Interpretation Comments SONNY (test code = SONNY) NEGATIVE [id number] 13:50:00 Test Item Value Reference Range Interpretation Comments FLORENCE Ser Interp (test code = FLORENCE SEE COMMENT Ser Interp) [id number] 13:50:00 Test Item Value Reference Range Interpretation Comments CERULOPLASMIN (test code = 23 18-36 CERULOPLASMIN) [facility] [id number] 13:50:00 Test Item Value Reference Range Interpretation Comments Copper Lvl (test code = Copper Lvl) 85 70-175 [facility]SPE[facility] [id number] 13:50:00 Test Item Value Reference Range Interpretation Comments Hgb A1C (test code = Hgb A1C) 8.3 [facility] [id number] 11:06:00 Test Item Value Reference Range Interpretation Comments GLUCOSE BEDSIDE TESTING (test code 311 MG/DL 60-99 HH = GLUBED) GLUCOSE BEDSIDE [id number] 07:08:00 Test Item Value Reference Range Interpretation Comments GLUCOSE BEDSIDE TESTING (test code 255 MG/DL 60-99 H = GLUBED) GLUCOSE BEDSIDE [id number] 19:38:00 Test Item Value Reference Range Interpretation Comments GLUCOSE BEDSIDE TESTING (test code 379 MG/DL 60-99 HH = GLUBED) GLUCOSE BEDSIDE [id number] 15:12:00 Test Item Value Reference Range Interpretation Comments GLUCOSE BEDSIDE TESTING (test code 328 MG/DL 60-99 HH = GLUBED) GLUCOSE BEDSIDE [id number] 11:42:00 Test Item Value Reference Range Interpretation Comments GLUCOSE BEDSIDE TESTING (test code 275 MG/DL 60-99 H = GLUBED) GLUCOSE BEDSIDE [id number] 07:09:00 Test Item Value Reference Range Interpretation Comments GLUCOSE BEDSIDE TESTING (test code 136 MG/DL 60-99 H = GLUBED) GLUCOSE BEDSIDE [id number] 05:17:00 Test Item Value Reference Range Interpretation Comments GLUCOSE BEDSIDE TESTING (test code 227 MG/DL 60-99 H = GLUBED) GLUCOSE BEDSIDE [id number] 19:32:00 Test Item Value Reference Range Interpretation Comments GLUCOSE BEDSIDE TESTING (test code 319 MG/DL 60-99 HH = GLUBED) GLUCOSE BEDSIDE [id number] 17:19:00 Test Item Value Reference Range Interpretation Comments GLUCOSE BEDSIDE TESTING (test code 267 MG/DL 60-99 H = GLUBED) GLUCOSE BEDSIDE [id number] 11:32:00 Test Item Value Reference Range Interpretation Comments GLUCOSE BEDSIDE TESTING (test code 350 MG/DL 60-99 HH = GLUBED) GLUCOSE BEDSIDE [id number] 07:18:00 Test Item Value Reference Range Interpretation Comments GLUCOSE BEDSIDE TESTING (test code 252 MG/DL 60-99 H = GLUBED) BASIC METABOLIC [id number] 00:40:00 Test Item Value Reference Range Interpretation [...] 8.3 MG/DL 8.4-10.2 L CA) CBC W/AUTO [id number] 00:29:00 Test Item Value Reference Range Interpretation [...] 0.00 K/mm3 0.0-0.1 N NRBC#) GLUCOSE BEDSIDE [id number] 07:42:00 Test Item Value Reference Range Interpretation Comments GLUCOSE BEDSIDE TESTING (test code 213 MG/DL 60-99 H = GLUBED) GLUCOSE BEDSIDE [id number] 11:22:00 Test Item Value Reference Range Interpretation Comments GLUCOSE BEDSIDE TESTING (test code 268 MG/DL 60-99 H = GLUBED) GLUCOSE BEDSIDE [id number] 08:39:00 Test Item Value Reference Range Interpretation Comments GLUCOSE BEDSIDE TESTING (test code 216 MG/DL 60-99 H = GLUBED) GLUCOSE BEDSIDE [id number] 15:42:00 Test Item Value Reference Range Interpretation Comments GLUCOSE BEDSIDE TESTING (test code 295 MG/DL 60-99 H = GLUBED) GLUCOSE BEDSIDE [id number] 07:38:00 Test Item Value Reference Range Interpretation Comments GLUCOSE BEDSIDE TESTING (test code 229 MG/DL 60-99 H = GLUBED) BASIC METABOLIC [id number] 04:43:00 Test Item Value Reference Range Interpretation [...] 8.3 MG/DL 8.4-10.2 L CA) CBC W/AUTO [id number] 04:27:00 Test Item Value Reference Range Interpretation [...] = 0.00 K/mm3 0.0-0.1 N NRBC#) DIFFERENTIAL [id number] 04:27:00 Test Item Value Reference Range Interpretation Comments RBC MORPHOLOGY REQUIRED (test code = RBCM) PLATELET ESTIMATE (test code = PLTEST) ADEQUATE PLATELET MORPHOLOGY (test code = NORMAL PLTMORPH) CBC W/AUTO [id number] 04:27:00 Test Item Value Reference Range Interpretation [...] = 0.00 K/mm3 0.0-0.1 N NRBC#) DIFFERENTIAL [id number] 04:27:00 Test Item Value Reference Range Interpretation Comments RBC MORPHOLOGY REQUIRED (test code = RBCM) PLATELET ESTIMATE (test code = PLTEST) ADEQUATE PLATELET MORPHOLOGY (test code = NORMAL PLTMORPH) GLUCOSE BEDSIDE [id number] 20:06:00 Test Item Value Reference Range Interpretation Comments GLUCOSE BEDSIDE TESTING (test code 298 MG/DL 60-99 H = GLUBED) GLUCOSE BEDSIDE [id number] 17:13:00 Test Item Value Reference Range Interpretation Comments GLUCOSE BEDSIDE TESTING (test code 215 MG/DL 60-99 H = GLUBED) GLUCOSE BEDSIDE [id number] 11:39:00 Test Item Value Reference Range Interpretation Comments GLUCOSE BEDSIDE TESTING (test code 247 MG/DL 60-99 H = GLUBED) GLUCOSE BEDSIDE [id number] 08:13:00 Test Item Value Reference Range Interpretation Comments GLUCOSE BEDSIDE TESTING (test code 209 MG/DL 60-99 H = GLUBED) GLUCOSE BEDSIDE [id number] 21:27:00 Test Item Value Reference Range Interpretation Comments GLUCOSE BEDSIDE TESTING (test code 217 MG/DL 60-99 H = GLUBED) GLUCOSE BEDSIDE [id number] 16:26:00 Test Item Value Reference Range Interpretation Comments GLUCOSE BEDSIDE TESTING (test code 205 MG/DL 60-99 H = GLUBED) CBC W/AUTO [id number] 12:18:00 Test Item Value Reference Range Interpretation [...] 0.00 K/mm3 0.0-0.1 N NRBC#) Comments to Office Workforce Planner: USE BLOOD RECENTLY COLLECTED IF POSSIBLEIs this a LINE draw? YGLUCOSE BEDSIDE [id number] 11:33:00 Test Item Value Reference Range Interpretation Comments GLUCOSE BEDSIDE TESTING (test code 235 MG/DL 60-99 H = GLUBED) BASIC METABOLIC [id number] 10:34:00 Test Item Value Reference Range Interpretation [...] code = 8.3 MG/DL 8.4-10.2 L CA) [id number] 10:34:00 Test Item Value Reference Range Interpretation Comments MAGNESIUM (test code = MAG) 1.8 MG/DL 1.6-2.3 N - XR CHEST [id number] 08:38:00 [facility] : 1960 Sex: M Patient Name: JUSTICE CASTELLON Unit No: [id number] EXAMS: CPT CODE: [id number] XR CHEST 1V 82223 EXAMINATION: - XR CHEST 1V. LOCATION: B2. HISTORY: COUGH. COMPARISON: Radiograph dated 01/25/2021. TECHNIQUE: Single AP view ofthe chest was obtained. FINDINGS: Right subclavian line is unchanged in position. The heart is mildly enlarged in size. Left basilar opacities are present, increased since prior exam. Linear atelectasis is seen in the right lung base, unchanged. No new osseous abnormality is identified. IMPRESSION: Interval increase of left basilar opacities, which may represent infiltrates or atelectasis. Mild rightbasilar atelectasis, unchanged. Mild cardiomegaly. at 0838 Reported and signed by: Manuel Woodward MD CC: Jewels Marcos MD Technologist: Wicho Marvin, RT(R) Transcrpt Date/Tm/Trnsp: 01/26/2021 (0838) t.SDR.PR7 Orig Print D/T: S: 01/26/2021(0841) [facility] NAME: JUSTICE CASTELLON [address] PHYS: Johnny Dunn MD [place], [place] [address]NUT: 1960 AGE: 60 SEX: M LOC: Z.SI01 A PHONE #: [phone] EXAM DATE:01/26/2021 STATUS: ADM IN FAX #: [phone] RADIOLOGY NO: PAGE 1 Signed Report- XR CHEST [id number] 08:38:00 [facility] : 1960 Sex: M Patient Name: JUSTICE CASTELLON Unit No: [id number] EXAMS: CPT CODE: [id number] XR CHEST 1V [id number] EXAMINATION: - XR CHEST 1V. LOCATION: B2. HISTORY: COUGH. COMPARISON: Radiograph dated 01/25/2021. TECHNIQUE: Single AP view ofthe chest was obtained. FINDINGS: Right subclavian line is unchanged in position. The heart is mildly enlarged in size. Left basilar opacities are present, increased since prior exam. Linear atelectasis is seen in the right lung base, unchanged. No new osseous abnormality is identified. IMPRESSION: Interval increase of left basilar opacities, which may represent infiltrates or atelectasis. Mild right basilar atelectasis, unchanged. Mild cardiomegaly. at 0838 Reported and signed by: Manuel Woodward MD CC: Jewels Marcos MD Technologist: Wicho Marvin, RT(R) Transcrpt Date/Tm/Trnsp: 01/26/2021 (0838) t.SDR.PR7 Orig Print D/T: S: 01/26/2021(0841) [facility] NAME: JUSTICE CASTELLON [address] [address] PHYS: Johnny Dunn MD [place], [place] [address]XPD: 1960 AGE: 60 SEX: M LOC: K PHONE #: [phone] EXAM DATE: 01/26/2021 STATUS: DIS IN FAX #: [phone] RADIOLOGY NO: PAGE 1 Signed ReportGLUCOSE BEDSIDE [id number] 07:30:00 Test Item Value Reference Range Interpretation Comments GLUCOSE BEDSIDE TESTING (test code 179 MG/DL 60-99 H = GLUBED) GLUCOSE BEDSIDE [id number] 20:18:00 Test Item Value Reference Range Interpretation Comments GLUCOSE BEDSIDE TESTING (test code 189 MG/DL 60-99 H = GLUBED) GLUCOSE BEDSIDE [id number] 16:09:00 Test Item Value Reference Range Interpretation Comments GLUCOSE BEDSIDE TESTING (test code 208 MG/DL 60-99 H = GLUBED) POC ARTERIAL BLOOD [id number] 12:10:00 Test Item Value Reference Range Interpretation Comments POC ARTERIAL BLOOD GAS PH 7.346 7.35-7.45 L (test code = POCPHA) POC ARTERIAL BLOOD GAS PCO2 46.2 mmHg 35.0-45.0 H (test code = [id number]) POC ARTERIAL BLOOD GAS PO2 377.8 75.0-100.0 HH (test code = NCPBS4J) POC HCO3 ARTERIAL (test 25.3 MMOL/L 20.0-26.0 N code = [id number]) POC BASE EXCESS (test code -0.9 MMOL/L [...] 0.7-2.0 N = LACTP) POC ARTERIAL BLOOD [id number] 12:09:00 Test Item Value Reference Range Interpretation Comments POC ARTERIAL BLOOD GAS PH 7.405 7.35-7.45 N (test code = POCPHA) POC ARTERIAL BLOOD GAS PCO2 38.9 mmHg 35.0-45.0 N (test code = CTIJKJ4X) POC ARTERIAL BLOOD GAS PO2 362.3 75.0-100.0 HH (test code = LIVNN0P) POC HCO3 ARTERIAL (test 24.4 MMOL/L 20.0-26.0 N code = LPODFO1O) POC BASE EXCESS (test code -0.3 MMOL/L [...] 0.7-2.0 N = LACTP) POC ARTERIAL BLOOD [id number] 12:09:00 Test Item Value Reference Range Interpretation Comments POC ARTERIAL BLOOD GAS PH 7.335 7.35-7.45 L (test code = POCPHA) POC ARTERIAL BLOOD GAS PCO2 44.9 mmHg 35.0-45.0 N (test code = TBRDBC4P) POC ARTERIAL BLOOD GAS PO2 626.8 75.0-100.0 HH (test code = RJKJR1Q) POC HCO3 ARTERIAL (test 24.0 MMOL/L 20.0-26.0 N code = VWUSSQ6X) POC BASE EXCESS (test code -1.9 MMOL/L [...] mmol/L 0.7-2.0 N = LACTP) GLUCOSE BEDSIDE [id number] 11:55:00 Test Item Value Reference Range Interpretation Comments GLUCOSE BEDSIDE TESTING (test code 218 MG/DL 60-99 H = GLUBED) GLUCOSE BEDSIDE [id number] 10:19:00 Test Item Value Reference Range Interpretation Comments GLUCOSE BEDSIDE TESTING (test code 170 MG/DL 60-99 H = GLUBED) - XR CHEST [id number] 07:58:00 [facility] : 1960 Sex: M Patient Name: JUSTICE CASTELLON Unit No: [id number] EXAMS: CPT CODE: [id number] XR CHEST 1V 59910 EXAMINATION: - XR [id number] HISTORY: Postop COMPARISON: Chest x-ray performed the previous day LOCATION CODE: C3 FINDINGS: Single frontal view of the chest is submitted for evaluation. Mild linear changes in the mid and lowerlungs remain present and are stable in appearance. [...] (0758) [id number] Orig Print D/T: S: 01/25/2021 (0801) [facility] NAME: JUSTICE CASTELLON [address] [address] PHYS: [place] [address] : 1960 AGE: 60 SEX: M ACCT NO: [id number] LOC: [id number].SI01 A PHONE #: [phone] EXAM DATE: 01/25/2021 STATUS: ADM IN FAX #: [phone] RADIOLOGY NO: PAGE 1 Signed Report- XR CHEST 1V 2021-01-25 07:58:00 [facility] [facility] : 1960 Sex: M Patient Name: JUSTICE CASTELLON Unit No: [id number] EXAMS: CPT CODE: [id number] XR CHEST 1V 32975 EXAMINATION: - XR CHEST 1V HISTORY: Postop [...] prior study at 0758 Reported and signed by:Ella Santoro MD CC: Jewels Marcos MD Technologist: Kerry Crena RT(R) Transcrpt Date/Tm/Trnsp: 01/25/2021 (0758) t.[email or web address].AG38 Orig Print D/T: S: 01/25/2021 (0801) [facility] NAME: JUSTICE CASTELLON [address] PHYS: [place] [address] : 1960 AGE: 60 SEX: M LOC: K PHONE #: [phone] EXAM DATE: 01/25/2021 STATUS: DIS IN FAX #: [phone] RADIOLOGY NO: PAGE 1 Signed ReportGLUCOSE BEDSIDE TESTING 2021-01-25 07:41:00 Test Item Value Reference Range Interpretation Comments GLUCOSE BEDSIDE TESTING (test code 160 MG/DL 60-99 H = GLUBED) GLUCOSE BEDSIDE [id number] 20:43:00 Test Item Value Reference Range Interpretation Comments GLUCOSE BEDSIDE TESTING (test code 220 MG/DL 60-99 H = GLUBED) GLUCOSE BEDSIDE [id number] 18:00:00 Test Item Value Reference Range Interpretation Comments GLUCOSE BEDSIDE TESTING (test code 135 MG/DL 60-99 H = GLUBED) HEPARIN INDUCED [id number] 14:54:00 Test Item Value Reference Range Interpretation [...] the 4T score an d the 2013 [employer] guidelines. NEG ATIVE results [...] at least4 hours. [ Automated message] The [employer] stem which generated this result transmitted ref erence range: (). The referen ce range was not used to int erpret this result as marco l/abnormal. UNABLE TO DRAW BLOOD, REASON: do in am NOTIFIED PATIENT CARE STAFF: Aicha 01/23/21 AT 1906 BY Gabriella LeonardHEPARIN INDUCED [id number] 14:53:00 Test Item Value Reference Range Interpretation [...] the 4T score and the 2 013 [employer]ematology guid elinicci. NEGATIVE result s indicate the absence of [...] 1906 BY Gabriella Leonard An- XR CHEST [id number] 10:51:00 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 A right subclavian line terminates in the SVC. The heart size is mildly enlarged. Linear bibasilar subsegmental atelectasis, unchanged. The upper lung rizzo are grossly clear. No apparent pleural effusion nor pneumothorax. The left chest tube has been removed over the interval. There are postsurgical changes of left shoulder arthroplasty. IMPRESSION: 1. Linear bibasilar subseg mental atelectasis. 2. No apparent pneumothorax. at 1051 Reported and signed by: Facundo Jameson MD CC: Isabel Fernandez MD Technologist: Sergio Jacobs (RT) Transcrpt Date/Tm/Trnsp: 01/24/2021 (1051) t.[email or web address].NB16 Orig Print D/T: S: 01/24/2021 (6661) [facility] NAME: JUSTICE CASTELLON [address] PHYS: [place] [address] : 1960 AGE: 60 SEX: M LOC: Z.SI01 A PHONE #: [phone] EXAM DATE: 01/24/2021 STATUS: ADM IN FAX #: [phone] RADIOLOGY NO: PAGE 1 Signed Report- XR CHEST [id number] 10:51:00 [facility] : 1960 Sex: M Patient Name: JUSTICE CASTELLON Unit No: [id number] EXAMS: CPT CODE: [id number] XR CHEST 1V 53878 CHEST 1 VIEW: INDICATION: CHEST TUBE REMOVAL [...] been removed over the interval. There are postsurgical changes of left shoulder arthroplasty. IMPRESSION: 1. Linear bibasilar subsegmental atelectasis. 2. No apparent pneumothorax. at 1051 Reported and signed by: Facundo Jameson MD CC: Isabel Fernandez MD Technologist: Sergio Jacobs (RT) Transcrpt Date/Tm/Trnsp: 01/24/2021 (1051) t.PRISCILLAR.NB16 Orig Print D/T: S: 01/24/2021 (8376) [facility] NAME: JUSTICE CASTELLON [address] PHYS: [place] [address] : 1960 AGE: 60 SEX: M LOC: [facility] PHONE #: [phone] EXAM DATE: 01/24/2021 STATUS: DIS IN FAX #: [phone] RADIOLOGY NO: PAGE 1 Signed ReportPO ARTERIAL BLOOD [id number] 07:50:00 Test Item Value Reference Range Interpretation Comments POC ARTERIAL BLOOD GAS PH 7.436 7.35-7.45 N (test code = POCPHA) POC ARTERIAL BLOOD GAS PCO2 30.7 mmHg 35.0-45.0 L (test code = [id number]) POC ARTERIAL BLOOD GAS PO2 222.7 75.0-100.0 HH (test code = TBFDE5Z) POC HCO3 ARTERIAL (test 20.7 MMOL/L 20.0-26.0 N code = QHYPLF1Y) POC BASE EXCESS (test code -3.2 MMOL/L -3.0-3.0 L = POCBEA) POC O2 SATURATION (test 99.8 % 92.0-98.5 H code = POCO2S) FIO2 (test code = FIO2A) 80 % 21-100 N PaO2/FiO2 (test code = 278.37 mm/Hg [id number]) SODIUM (test code = NA/ABG) 141 MMOL/L [...] mmol/L 0.7-2.0 HH = LACTP) GLUCOSE BEDSIDE [id number] 07:46:00 Test Item Value Reference Range Interpretation Comments GLUCOSE BEDSIDE TESTING (test code 141 MG/DL 60-99 H = GLUBED) BASIC METABOLIC [id number] 07:26:00 Test Item Value Reference Range Interpretation [...] 8.6 MG/DL 8.4-10.2 N CA) CBC W/AUTO [id number] 07:12:00 Test Item Value Reference Range Interpretation [...] = 0.00 K/mm3 0.0-0.1 N NRBC#) - XR CHEST [id number] 06:52:00 [facility] : 1960 Sex: M Patient Name: JUSTICE CASTELLON Unit No: [id number] EXAMS: CPT CODE: [id number] XR CHEST 1V 16310 EXAM: CHEST ONE VIEW INDICATION: S/P CABG LOCATION: B2 COMPARISON: January 23, 2021 TECHNIQUE: AP view of the chest FINDINGS: The right central venous catheter is unchanged. The heart size is normal. There is evidence of prior thoracic surgery. There is minimal bibasilar atelectasis. The pulmonary vasculature is normal. No pneumothorax or pleural effusion is identified. The osseous structures are normal. IMPRESSION: Minimal bibasilar atelectasis. at 0652 Reported and signed by: Omayra Zelaya MD CC: Isabel Fernandez MD Technologist: Patric Kruse, RT(R) Transcrpt Date/Tm/Trnsp: 01/24/2021 (0652) 16 Orig Print D/T: S: 01/24/2021 (0655) [facility] NAME: JUSTICE CASTELLON [address] PHYS: [place] [address] : 1960 AGE: 60 SEX: M LOC: Z.SI02 A PHONE #: [phone] EXAM DATE: 01/24/2021 STATUS: ADM IN FAX #: [phone] RADIOLOGY NO: PAGE 1 Signed Report- XR CHEST [id number] 06:52:00 [facility] : 1960 Sex: M Patient Name: JUSTICE CASTELLON Unit No: [id number] EXAMS: CPT CODE: [id number] XR CHEST 1V 94382 EXAM: CHEST ONE VIEW INDICATION: S/P CABG LOCATION: B2 COMPARISON: January 23, 2021 TECHNIQUE: AP view of the chest FINDINGS: The right central venous catheter is unchanged. The heart size is normal. There is evidence of prior thoracic surgery. There is minimal bibasilar atelectasis. The pulmonary vasculature is normal. No pneumothorax or pleural effusion is identified. The osseous structures are normal. IMPRESSION: Minimal bibasilar atelectasis. at 0652 Reported and signed by: Omayra Zelaya MD CC: Isabel Fernandez MD Technologist: Patric Kruse, RT(R) Transcrpt Date/Tm/Trnsp: 01/24/2021 (0652) 16 Orig Print D/T: S: 01/24/2021 (0655) [facility] NAME: JUSTICE CASTELLON [address] PHYS: [place] [address] : 1960 AGE: 60 SEX: M LOC: UNK PHONE #: [phone] EXAM DATE: 01/24/2021 STATUS: DIS IN FAX #: [phone] RADIOLOGY NO: PAGE 1 Signed ReportGLUCOSE BEDSIDE [id number] 06:28:00 Test Item Value Reference Range Interpretation Comments GLUCOSE BEDSIDE TESTING (test code 227 MG/DL 60-99 H = GLUBED) GLUCOSE BEDSIDE [id number] 06:28:00 Test Item Value Reference Range Interpretation Comments GLUCOSE BEDSIDE TESTING (test code 246 MG/DL 60-99 H = GLUBED) GLUCOSE BEDSIDE [id number] 06:28:00 Test Item Value Reference Range Interpretation Comments GLUCOSE BEDSIDE TESTING (test code 194 MG/DL 60-99 H = GLUBED) GLUCOSE BEDSIDE [id number] 06:27:00 Test Item Value Reference Range Interpretation Comments GLUCOSE BEDSIDE TESTING (test code 193 MG/DL 60-99 H = GLUBED) GLUCOSE BEDSIDE [id number] 06:27:00 Test Item Value Reference Range Interpretation Comments GLUCOSE BEDSIDE TESTING (test code 217 MG/DL 60-99 H = GLUBED) GLUCOSE BEDSIDE [id number] 06:27:00 Test Item Value Reference Range Interpretation Comments GLUCOSE BEDSIDE TESTING (test code 171 MG/DL 60-99 H = GLUBED) GLUCOSE BEDSIDE [id number] 20:37:00 Test Item Value Reference Range Interpretation Comments GLUCOSE BEDSIDE TESTING (test code 159 MG/DL 60-99 H = GLUBED) - XR CHEST [id number] 07:00:00 [facility] : 1960 Sex: M Patient Name: JUSTICE CASTELLON Unit No: [id number] EXAMS: CPT CODE: [id number] XR CHEST 1V 95457 EXAM: CHEST ONE VIEW INDICATION: S/P CABG LOCATION: B2 COMPARISON: January 22, 2021 TECHNIQUE: AP view of the chest FINDINGS: The right-sided Powell-Jaimie catheter has been removed. The right central venous catheter is unchanged. The heart size is enlarged. There is evidence of prior thoracic surgery. There are mild congestive changes bilaterally. No pneumothorax or pleural effusion is identified. The osseous structures are normal. IMPRESSION: Cardiomegaly with mild congestive changes bilaterally. at 0700 Reported and signed by: Omayra Zelaya MD CC: Isabel Fernandez MD [facility] hnologist: Patric Kruse, RT(R) Transcrpt Date/Tm/Trnsp: 01/23/2021 (0700) 16 Orig Print D/T: S: 01/23/2021 (0703) [facility] NAME: JUSTICE CASTELLON [address] PHYS: [place] [address] : 1960 AGE: 60 SEX: M LOC: Z.SI02 A PHONE #: EXAM DATE: 01/23/2021 STATUS: ADM IN FAX #: [phone] RADIOLOGY NO: PAGE 1 Signed Report- XR CHEST [id number] 07:00:00 [facility] : 1960 Sex: M Patient Name: JUSTICE CASTELLON Unit No: [id number] EXAMS: CPT CODE: [id number] XR CHEST 1V 04013 EXAM: CHEST ONE VIEW INDICATION: S/P CABG LOCATION: B2 COMPARISON: January 22, 2021 TECHNIQUE: AP view of the chest FINDINGS: The right-sided Powell-Jaimie catheter has been removed. The right central venous catheter is unchanged. The heart size is enlarged. There is evidence of prior thoracic surgery. There are mild congestive changes bilaterally. No pneumothorax or pleural effusion is identified. The osseous structures are normal. IMPRESSION: Cardiomegaly with mild congestive changes bilaterally. at 0700 Reported and signed by: Omayra Zelaya MD CC: Isabel Fernandez MD Tech nologist: Patric Kruse, RT(R) Transcrpt Date/Tm/Trnsp: 01/23/2021 (0700) 16 Orig Print D/T: S: 01/23/2021 (0703) [facility] NAME: JUSTICE CASTELLON [address] [address] PHYS: [place] [address] : 1960 AGE: 60 SEX: M LOC: UNK PHONE #: [phone] EXAM DATE: 01/23/2021 STATUS: DIS IN FAX #: [phone] RADIOLOGY NO: PAGE 1 Signed Report BASIC METABOLIC [id number] 04:25:00 Test Item Value Reference Range Interpretation [...] 8.1 MG/DL 8.4-10.2 L CA) CBC W/AUTO [id number] 04:01:00 Test Item Value Reference Range Interpretation [...] 0.00 K/mm3 0.0-0.1 N NRBC#) GLUCOSE BEDSIDE [id number] 19:48:00 Test Item Value Reference Range Interpretation Comments GLUCOSE BEDSIDE TESTING (test code 193 MG/DL 60-99 H = GLUBED) GLUCOSE BEDSIDE [id number] 16:43:00 Test Item Value Reference Range Interpretation Comments GLUCOSE BEDSIDE TESTING (test code 103 MG/DL 60-99 H = GLUBED) GLUCOSE BEDSIDE [id number] 15:24:00 Test Item Value Reference Range Interpretation Comments GLUCOSE BEDSIDE TESTING (test code 119 MG/DL 60-99 H = GLUBED) GLUCOSE BEDSIDE [id number] 14:05:00 Test Item Value Reference Range Interpretation Comments GLUCOSE BEDSIDE TESTING (test code 176 MG/DL 60-99 H = GLUBED) GLUCOSE BEDSIDE [id number] 12:55:00 Test Item Value Reference Range Interpretation Comments GLUCOSE BEDSIDE TESTING (test code 195 MG/DL 60-99 H = GLUBED) ARTERIAL BLOOD [id number] 11:56:00 Test Item Value Reference Range Interpretation [...] report to and readback by RN by JULIO CÉSAR at 01/21/2021 5:55: 42 PM ABG DELIVERY (test VENT code = BRENTON) ABG VENT MODE (test A/C code = MODEA) ABG VENT RESP RATE 14.0 /MIN (test code = RRA) ABG TIDAL VOLUME 550.0 ml (test code = TVA) ABG PEEP (test code = 5.0 cmH2O PEEPA) ABG TEMPERATURE (test 37.0 C See_Comment [Auto mated message] code = TEMPA) The system [employer] generated this result transmit quoc reference range : 37. The reference r ana luisa was not used to interpret this result as normal/abnormal . ABG SITE (test code = AL SITEA) ALLENS TEST (test NA CHECK code = ALLENS) FIO2 (test code = 90 % COHBGFFIO2) PaO2/[id number] 11:56:00 Test Item Value Reference Range Interpretation Comments PaO2/FiO2 (test code = [id number]) mm/Hg ARTERIAL BLOOD [id number] 11:56:00 Test Item Value Reference Range Interpretation [...] mated message] code = TEMPA) The system [employer] generated this result transmit quoc reference range : 37. The reference r ana luisa was not used to interpret this result as normal/abnormal . ABG SITE (test code = AL SITEA) ALLENS TEST (test NA CHECK code = ALLENS) FIO2 (test code = 90 % COHBGFFIO2) PaO2/[id number] 11:56:00 Test Item Value Reference Range Interpretation Comments PaO2/FiO2 (test code = [id number]) 226.55 mm/Hg GLUCOSE BEDSIDE [id number] 11:43:00 Test Item Value Reference Range Interpretation Comments GLUCOSE BEDSIDE TESTING (test code 211 MG/DL 60-99 H = GLUBED) GLUCOSE BEDSIDE [id number] 10:36:00 Test Item Value Reference Range Interpretation Comments GLUCOSE BEDSIDE TESTING (test code 243 MG/DL 60-99 H = GLUBED) GLUCOSE BEDSIDE [id number] 09:11:00 Test Item Value Reference Range Interpretation Comments GLUCOSE BEDSIDE TESTING (test code 292 MG/DL 60-99 H = GLUBED) GLUCOSE BEDSIDE [id number] 07:54:00 Test Item Value Reference Range Interpretation Comments GLUCOSE BEDSIDE TESTING (test code 238 MG/DL 60-99 H = GLUBED) - XR CHEST [id number] 06:26:00 [facility] : 1960 Sex: M Patient Name: JUSTICE CASTELLON Unit No: [id number] EXAMS: CPT CODE: [id number] XR CHEST 1V 37645 EXAM: CHEST ONE VIEW INDICATION: S/P CABG LOCATION: B2 COMPARISON: January 21, 2021 TECHNIQUE: AP view of the chest FINDINGS: The endotracheal tube and enteric tube have been removed. The right central venous catheter and right Powell-Jaimie catheter unchanged in position. The heart size [...] Technologist: Patric Kruse, RT(R) Transcrpt Date/Tm/Trnsp: 01/22/2021 (06) [id number] Orig Print D/T: S: 01/22/2021 (06) [facility] NAME: JUSTICE CASTELLON [address] PHYS: [place] [address] : 1960AGE: 60 SEX: M LOC: Z.SI02 A PHONE #: [phone] EXAM DATE: 01/22/2021 STATUS: ADM IN FAX #: [phone] RADIOLOGY NO: PAGE 1 Signed Report- XR CHEST [id number] 06:26:00 [facility] : 1960 Sex: M Patient Name: JUSTICE CASTELLON Unit No: [id number] EXAMS: CPT CODE: [id number] XR CHEST 1V 07662 EXAM: CHEST ONE VIEW INDICATION: S/P CABG LOCATION: B2 COMPARISON: January 21, 2021 TECHNIQUE: AP view of the chest FINDINGS: Theendotracheal tube and enteric tube have been removed. The right central venous catheter and right Powell-Jaimie catheter unchanged in position. The heart size is normal. There is evidence of prior thoracicsurgery. There are mild congestive changes bilaterally. No pneumothorax or pleural effusion is identified. The osseous structures are normal. IMPRESSION: Stable postoperative chest. Mild parenchymal opacities throughout both lungs. at 0626 Reported and signed by: Omayra Zelaya MD CC: Isabel Fernandez MD Technologist: Patric I. Kruse, RT(R)Transcrpt Date/Tm/Trnsp: 01/22/2021 (06) 16 Orig Print D/T: S: 01/22/2021 (0629) [facility] NAME: JUSTICE CASTELLON [address] [address] PHYS: [place] [address] : 1960 AGE: 60 SEX: M LOC: UNK PHONE #: [phone] EXAM DATE: 01/22/2021 STATUS: DIS IN FAX #: [phone] RADIOLOGY NO: PAGE 1 Signed ReportGLUCOSE BEDSIDE [id number] 05:56:00 Test Item Value Reference Range Interpretation Comments GLUCOSE BEDSIDE TESTING (test code 212 MG/DL 60-99 H = GLUBED) GLUCOSE BEDSIDE [id number] 05:05:00 Test Item Value Reference Range Interpretation Comments GLUCOSE BEDSIDE TESTING (test code 164 MG/DL 60-99 H = GLUBED) CBC W/AUTO [id number] 05:04:00 Test Item Value Reference Range Interpretation [...] 0.00 K/mm3 0.0-0.1 N NRBC#) BASIC METABOLIC [id number] 05:02:00 Test Item Value Reference Range Interpretation [...] 8.5 MG/DL 8.4-10.2 N CA) GLUCOSE BEDSIDE [id number] 03:14:00 Test Item Value Reference Range Interpretation Comments GLUCOSE BEDSIDE TESTING (test code 218 MG/DL 60-99 H = GLUBED) GLUCOSE BEDSIDE [id number] 02:04:00 Test Item Value Reference Range Interpretation Comments GLUCOSE BEDSIDE TESTING (test code 217 MG/DL 60-99 H = GLUBED) GLUCOSE BEDSIDE [id number] 01:45:00 Test Item Value Reference Range Interpretation Comments GLUCOSE BEDSIDE TESTING (test code 220 MG/DL 60-99 H = GLUBED) GLUCOSE BEDSIDE [id number] 01:12:00 Test Item Value Reference Range Interpretation Comments GLUCOSE BEDSIDE TESTING (test code 223 MG/DL 60-99 H = GLUBED) GLUCOSE BEDSIDE [id number] 23:07:00 Test Item Value Reference Range Interpretation Comments GLUCOSE BEDSIDE TESTING (test code 232 MG/DL 60-99 H = GLUBED) GLUCOSE BEDSIDE [id number] 21:51:00 Test Item Value Reference Range Interpretation Comments GLUCOSE BEDSIDE TESTING (test code 254 MG/DL 60-99 H = GLUBED) BASIC METABOLIC [id number] 21:46:00 Test Item Value Reference Range Interpretation [...] IVETH 01/21/21 AT 1759 BY Gabriella Leonard AnPROTHROMBHEMANTH [id number] 21:40:00 Test Item Value Reference Range Interpretation Comments PROTHROMBIN TIME PATIENT 13.4 9.5-12.7 H (test code = PTP) INTERNATIONAL NORMAL RATIO 1.2 0.86-1.14 H T he INR is to be used (test code = INR) only for m onitoring oral anticoagulantth erapy. INDICATION INR VALUE ------- ------- -----1. Prophylaxis, de ep venous thrombos is, including high risk surgery. 2.0 - 3.0 2. Prophylaxis, de ep venous thrombos is, hip surgery, treatm ent for deep venous thr ombosis or pulmonary prevention of s ystemic embolism in pat ients with valvular h eart disease, atrial fibrillation, t issue heart valve, or acute myocardial infa rction. 2.0 - 3.0 3. Mechanical pros thesis heart valves, recurrent syste keshav embolism. 3.0 - 4.5 UNABLE TO DRAW BLOOD, REASON: CBNNOTIFIED PATIENT CARE STAFF: [facility] 01/21/21 AT 1758 BY Gabriella Leonard AnPTT [id number] 21:40:00 Test Item Value Reference Range Interpretation Comments PTT ACTIVATED (test code = APTT) 26.1 SECONDS 25.1-36.5 N UNABLE TO DRAW BLOOD, REASON: CBNNOTIFIED PATIENT CARE STAFF: [facility] 01/21/21 AT 175 BY Gabriella Leonard [id number] 21:38:00 Test Item Value Reference Range Interpretation Comments MAGNESIUM (test code = MAG) 1.5 MG/DL 1.6-2.3 L UNABLE TO DRAW BLOOD, REASON: CBNNOTIFIED PATIENT CARE STAFF: [facility] 01/21/21 AT 175 BY Gabriella Leonard AnCBC W/AUTO [id number] 21:37:00 Test Item Value Reference Range Interpretation [...] IVETH 01/21/21 AT 1759 BY Gabriella Leonard BEDSIDE [id number] 21:05:00 Test Item Value Reference Range Interpretation Comments GLUCOSE BEDSIDE TESTING (test code 227 MG/DL 60-99 H = GLUBED) GLUCOSE BEDSIDE [id number] 19:54:00 Test Item Value Reference Range Interpretation Comments GLUCOSE BEDSIDE TESTING (test code 284 MG/DL 60-99 H = GLUBED) GLUCOSE BEDSIDE [id number] 18:59:00 Test Item Value Reference Range Interpretation Comments GLUCOSE BEDSIDE TESTING (test code 195 MG/DL 60-99 H = GLUBED) - XR CHEST [id number] 18:08:00 [facility] 1960 Sex: M Patient Name: JUSTICE CASTELLON Unit No: [id number] EXAMS: CPT CODE: [id number] XR CHEST 1V 34213 LOCATION: Q15 HISTORY: 60-year-old male, status post [...] unremarkable. ET tube is above the isidro mary nasogastric tube is in the stomach. The right IJ Powell-Jaimie catheter tip is in the right main pulmonary arterial branch. A right squamous central line seen with the tip in the superior vena cava. Media stinal drains are noted. IMPRESSION: Satisfactory postoperative appearance of the chest. at 1808 Reported and signed by: Johnny Joshi M.D. CC: Isabel Fernandez MD Technologist: Annamarie Puentes, RT(R) Transcrpt Date/Tm/Trnsp: 01/21/2021 (1807) [id number] Orig Print D/T: S: 01/21/2021 (1810) [facility] NAME: JUSTICE CASTELLON [address] [address] PHYS: [place] [address] : 1960 AGE: 60 SEX: M LOC: Z.SI02 A PHONE #: [phone] EXAM DATE: 01/21/2021 STATUS: ADM IN FAX #: [phone] RADIOLOGYNO: PAGE 1 Signed Report- XR CHEST [id number] 18:08:00 [facility] : 1960 Sex: M Patient Name: JUSTICE CASTELLON Unit No: [id number] EXAMS: CPT CODE: [id number] XR CHEST 1V 35497 LOCATION: Q15 HISTORY: 60-year-old male, status post [...] unremarkable. ET tube is above the isidro mary nasogastric tube is in the stomach. The right IJ Powell-Jaimie catheter tip is in the right main pulmonary arterial branch. A right squamous central line seen with the tip in the superior vena cava. Media stinal drains are noted. IMPRESSION: Satisfactory postoperative appearance of the chest. at 1808 Reported and signed by: Johnny Joshi M.D. CC: Isabel Fernandez MD Technologist: Annamarie Puentes, RT(R) Transcrpt Date/Tm/Trnsp: 01/21/2021 (1807) [id number] Orig Print D/T: S: 01/21/2021 (1810) [facility] NAME: JUSTICE CASTELLON [address] [address] PHYS: [place] [address] : 1960 AGE: 60 SEX: M LOC: [email or web address] PHONE #: [phone] EXAM DATE: 01/21/2021 STATUS: DIS IN FAX #: [phone] RADIOLOGY NO: PAGE 1 Signed Report PROTHROMBIN [id number] 17:46:00 Test Item Value Reference Range Interpretation Comments PROTHROMBIN TIME PATIENT 16.8 9.5-12.7 H (test code = PTP) INTERNATIONAL NORMAL RATIO 1.5 0.86-1.14 H T he INR is to be used (test code = INR) only for m onitoring oral anticoagulantth erapy. INDICATION INR VALUE ------- ------- -----1. Prophylaxis, de ep venous thrombos is, including high risk surgery. 2.0 - 3.0 2. Prophylaxis, de ep venous thrombos is, hip surgery, treatm ent for deep venous thr ombosis or pulmonary prevention of s ystemic embolism in pat ients with valvular h eart disease, atrial fibrillation, t issue heart valve, or acute myocardial infa rction. 2.0 - 3.0 3. Mechanical pros thesis heart valves, recurrent syste keshav embolism. 3.0 - 4.5 PTT [id number] 17:46:00 Test Item Value Reference Range Interpretation Comments PTT ACTIVATED (test code = APTT) 25.8 SECONDS 25.1-36.5 N POC ARTERIAL BLOOD [id number] 17:38:00 Test Item Value Reference Range Interpretation Comments POC ARTERIAL BLOOD GAS PH 7.439 7.35-7.45 N (test code = POCPHA) POC ARTERIAL BLOOD GAS PCO2 34.2 mmHg 35.0-45.0 L (test code = UNUWUW1Y) POC ARTERIAL BLOOD GAS PO2 215.8 75.0-100.0 HH (test code = [id number]) POC HCO3 ARTERIAL (test 23.2 MMOL/L 20.0-26.0 N code = [id number]) POC BASE EXCESS (test code -0.6 MMOL/L -3.0-3.0 N = POCBEA) POC O2 SATURATION (test 99.8 % 92.0-98.5 H code = POCO2S) FIO2 (test code = FIO2A) 80 % 21-100 N PaO2/FiO2 (test code = 269.75 mm/Hg [id number]) SODIUM (test code = NA/ABG) 146 MMOL/L [...] mmol/L 0.7-2.0 HH = LACTP) BASIC METABOLIC [id number] 17:37:00 Test Item Value Reference Range Interpretation [...] 7.9 MG/DL 8.4-10.2 L CA) CBC W/AUTO [id number] 17:29:00 Test Item Value Reference Range Interpretation [...] K/mm3 0.0-0.1 N NRBC#) POC ARTERIAL BLOOD [id number] 17:04:00 Test Item Value Reference Range Interpretation Comments POC ARTERIAL BLOOD GAS PH 7.300 7.35-7.45 L (test code = POCPHA) POC ARTERIAL BLOOD GAS PCO2 40.6 mmHg 35.0-45.0 N (test code = [id number]) POC ARTERIAL BLOOD GAS PO2 188.1 75.0-100.0 H (test code = VWITQ5C) POC HCO3 ARTERIAL (test 20.0 MMOL/L 20.0-26.0 N code = WLTCWO5D) POC BASE EXCESS (test code -6.1 MMOL/L -3.0-3.0 L = POCBEA) POC O2 SATURATION (test 99.5 % 92.0-98.5 H code = POCO2S) FIO2 (test code = FIO2A) 80 % 21-100 PaO2/FiO2 (test code = 235.12 mm/Hg [id number]) SODIUM (test code = NA/ABG) 143 MMOL/L [...] 0.7-2.0 HH = LACTP) POC ARTERIAL BLOOD [id number] 16:07:00 Test Item Value Reference Range Interpretation Comments POC ARTERIAL BLOOD GAS PH 7.302 7.35-7.45 L (test code = POCPHA) POC ARTERIAL BLOOD GAS PCO2 50.0 mmHg 35.0-45.0 H (test code = IEFSZT2L) POC ARTERIAL BLOOD GAS PO2 370.8 75.0-100.0 HH (test code = VQMPE2A) POC HCO3 ARTERIAL (test 24.7 MMOL/L 20.0-26.0 N code = HWLLFP9B) POC BASE EXCESS (test code -2.0 MMOL/L -3.0-3.0 N = POCBEA) POC O2 SATURATION (test 99.9 % 92.0-98.5 H code = POCO2S) FIO2 (test code = FIO2A) 90 % 21-100 N PaO2/FiO2 (test code = 412.00 mm/Hg XWC2ANX5) SODIUM (test code = NA/ABG) 139 MMOL/L [...] code 1.93 mmol/L 0.7-2.0 N = LACTP) [id number] 16:01:00 Test Item Value Reference Range Interpretation Comments POTASSIUM (test code = K) 5.9 MMOL/L 3.5-5.1 H [id number] 16:01:00 Test Item Value Reference Range Interpretation Comments GLUCOSE (test code = GLU) 165 MG/DL 74-106 H POC ARTERIAL BLOOD [id number] 15:47:00 Test Item Value Reference Range Interpretation Comments POC ARTERIAL BLOOD GAS PH 7.367 7.35-7.45 N (test code = POCPHA) POC ARTERIAL BLOOD GAS PCO2 45.2 mmHg 35.0-45.0 H (test code = GTMPFZ1B) POC ARTERIAL BLOOD GAS PO2 398.7 75.0-100.0 HH (test code = RRJSP2S) POC HCO3 ARTERIAL (test 25.9 MMOL/L 20.0-26.0 N code = MANKEA1J) POC BASE EXCESS (test code 0.3 MMOL/L -3.0-3.0 N = POCBEA) POC O2 SATURATION (test 100.0 % 92.0-98.5 H code = POCO2S) FIO2 (test code = FIO2A) 90 % 21-100 N PaO2/FiO2 (test code = 443.00 mm/Hg GCV1VCO1) SODIUM (test code = NA/ABG) 138 MMOL/L [...] 1.72 mmol/L 0.7-2.0 N = LACTP) HGB [id number] 15:43:00 Test Item Value Reference Range Interpretation Comments HEMOGLOBIN (test code = HGB) 10.7 G/DL 12.4-16.7 L HEMATOCRIT (test code = HCT) 31.6 % 35.9-49.5 L POC ARTERIAL BLOOD [id number] 15:18:00 Test Item Value Reference Range Interpretation Comments POC ARTERIAL BLOOD GAS PH 7.405 7.35-7.45 N (test code = POCPHA) POC ARTERIAL BLOOD GAS PCO2 38.9 mmHg 35.0-45.0 N (test code = BLDIZO8E) POC ARTERIAL BLOOD GAS PO2 362.3 75.0-100.0 HH (test code = JZUYO5P) POC HCO3 ARTERIAL (test 24.4 MMOL/L 20.0-26.0 N code = CRYSZQ7D) POC BASE EXCESS (test code -0.3 MMOL/L -3.0-3.0 N = POCBEA) POC O2 SATURATION (test 100.0 % 92.0-98.5 H code = POCO2S) PaO2/FiO2 (test code = mm/Hg GRH6ODU5) SODIUM (test code = NA/ABG) 136 MMOL/L [...] code 1.60 mmol/L 0.7-2.0 N = LACTP) [id number] 15:18:00 Test Item Value Reference Range Interpretation Comments POTASSIUM (test code = K) 5.9 MMOL/L 3.5-5.1 H PLEASE CALL RESULTS TO PHONE #: [phone] STAT [id number] 15:18:00 Test Item Value Reference Range Interpretation Comments GLUCOSE (test code = GLU) 187 MG/DL 74-106 H PLEASE CALL RESULTS TO PHONE #: [phone] STAT HGB [id number] 15:01:00 Test Item Value Reference Range Interpretation Comments HEMOGLOBIN (test code = HGB) 10.7 G/DL 12.4-16.7 L HEMATOCRIT (test code = HCT) 32.3 % 35.9-49.5 L PLEASE CALL RESULTS TO PHONE #: [phone] STAT POC ARTERIAL BLOOD GAS 2021-01-21 14:40:00 Test Item Value Reference Range Interpretation Comments POC ARTERIAL BLOOD GAS PH 7.335 7.35-7.45 L (test code = POCPHA) POC ARTERIAL BLOOD GAS PCO2 44.9 mmHg 35.0-45.0 N (test code = TOJPOB0T) POC ARTERIAL BLOOD GAS PO2 626.8 75.0-100.0 HH (test code = UWJXJ5L) POC HCO3 ARTERIAL (test 24.0 MMOL/L 20.0-26.0 N code = KWYVXZ9L) POC BASE EXCESS (test code -1.9 MMOL/L -3.0-3.0 N = POCBEA) POC O2 SATURATION (test 100.0 % 92.0-98.5 H code = POCO2S) PaO2/FiO2 (test code = mm/Hg AOW5YVJ7) SODIUM (test code = NA/ABG) 133 MMOL/L [...] 0.7-2.0 N = LACTP) POC ARTERIAL BLOOD [id number] 13:35:00 Test Item Value Reference Range Interpretation Comments POC ARTERIAL BLOOD GAS PH 7.346 7.35-7.45 L (test code = POCPHA) POC ARTERIAL BLOOD GAS PCO2 46.2 mmHg 35.0-45.0 H (test code = IDUAYH7Q) POC ARTERIAL BLOOD GAS PO2 377.8 75.0-100.0 HH (test code = BZFCF3L) POC HCO3 ARTERIAL (test 25.3 MMOL/L 20.0-26.0 N code = QVWVQQ7S) POC BASE EXCESS (test code -0.9 MMOL/L -3.0-3.0 N = POCBEA) POC O2 SATURATION (test 99.9 % 92.0-98.5 H code = POCO2S) PaO2/FiO2 (test code = mm/Hg NBP5JLF9) SODIUM (test code = NA/ABG) 135 MMOL/L [...] mmol/L 0.7-2.0 N = LACTP) BASIC METABOLIC [id number] 12:48:00 Test Item Value Reference Range Interpretation [...] 9.6 MG/DL 8.4-10.2 N CA) CBC W/AUTO [id number] 12:41:00 Test Item Value Reference Range Interpretation [...] 0.00 K/mm3 0.0-0.1 N NRBC#) CHEMISTRY 8 [id number] 12:02:00 Test Item Value Reference Range Interpretation [...] 0.7-2.0 N code = LACTP) CHEMISTRY 8 [id number] 11:50:00 Test Item Value Reference Range Interpretation [...] 0.7-2.0 N code = LACTP) CHEMISTRY 8 [id number] 11:50:00 Test Item Value Reference Range Interpretation [...] code = LACTP) COVID 19 Asymptomatic IH [id number] 09:21:00 Test Item Value Reference Range Interpretation Comments COVID 19 NEGATIVE Negative "Negative resul ts from Asymptomatic IH AG patients with symptom (test code = onset beyondfiv e days, COVNONPUIAG) should be treat ed as presumptive, andconfirmation with a molecular assay [...] sample." Spec Comments: for surgery todayGLUCOSE BEDSIDE [id number] 07:11:00 Test Item Value Reference Range Interpretation Comments GLUCOSE BEDSIDE TESTING (test code 169 MG/DL 60-99 H = GLUBED) GLUCOSE BEDSIDE [id number] 19:45:00 Test Item Value Reference Range Interpretation Comments GLUCOSE BEDSIDE TESTING (test code 255 MG/DL 60-99 H = GLUBED) GLUCOSE BEDSIDE [id number] 15:35:00 Test Item Value Reference Range Interpretation Comments GLUCOSE BEDSIDE TESTING (test code 115 MG/DL 60-99 H = GLUBED) - XR CHEST [id number] 12:14:00 [facility] 1960 Sex: M Patient Name: JUSTICE CASTELLON Unit No: [id number] EXAMS: CPT CODE: [id number] XR CHEST 1V 29029 EXAMINATION: Frontal chest radiograph INDICATION: Cardiac/heart surgery COMPARISON: None LOCATION: S17 FINDINGS: Clear lungs. No pleural effusion or pneumothorax. Normal cardiomediastinal silhouette. IMPRESSION: No acute ab normality identified. at 1214 Reported and signed by: Mike Moore MD CC: Sonia FRANCO; Isabel Fernandez MD Technologist: Wicho Marvin,RT(R) Transcrpt Date/Tm/Trnsp: 01/20/2021 (1214) [email or web address] Orig Print D/T: S: 01/20/2021 (1217) [facility] NAME: JUSTICE CASTELLON [id number] PHYS: [place] [address] : 1960 AGE: 60 SEX: M LOC: [id number] A PHONE #: [phone] EXAM DATE: 01/20/2021 STATUS: ADM IN FAX #: [phone] RADIOLOGY NO: PAGE 1 Signed Report- XR CHEST [id number] 12:14:00 [facility] : 1960 Sex: M Patient Name: JUSTICE CASTELLON Unit No: [id number] EXAMS: CPT CODE: [id number] XR CHEST 1V 17501 EXAMINATION: Frontal chest radiograph INDICATION: Cardiac/heart surgery COMPARISON: None LOCATION: S17 FINDINGS: Clear lungs. No pleural effusion or pneumothorax. Normal cardiomediastinal silhouette. IMPRESSION: No acute abno rmality identified. at 1214 Reported and signed by: Mike Moore MD CC: Sonia FRANCO; Isabel Fernandez MD Technologist: Wicho Marvin, RT(R) Transcrpt Date/Tm/Trnsp: 01/20/2021 (1214) [id number] Orig Print D/T: S: 01/20/2021 (1480) [facility] NAME: JUSTICE CASTELLON [id number] PHYS: [place] [address] : 1960 AGE: 60 SEX: M LOC: UNK PHONE #: [phone] EXAM DATE: 01/20/2021 STATUS: DIS IN FAX #: [phone] RADIOLOGY NO: PAGE 1 Signed ReportHIV 12 AB [id number] 11:53:00 Test Item Value Reference Range Interpretation Comments HIV 1 2 COMBO AG/AB SCREEN AB/AG NON REACTIVE NONREACTIVE (test code = [id number]) GLUCOSE BEDSIDE [id number] 11:45:00 Test Item Value Reference Range Interpretation Comments GLUCOSE BEDSIDE TESTING (test code 204 MG/DL 60-99 H = GLUBED) GLYCOSYLATED HEMOGLOBIN [id number] 11:41:00 Test Item Value Reference Range Interpretation Comments GLYCOSYLATED 7.2 % 4.8-5.9 H Any condition t hat HEMOGLOBIN (HA1C) shortens e rythocyte (test code = survival or dec reasesmean GLYHGB) erythrocyte age (e.g., recovery from a cute blood loss,hemolytic anemia) will falsely lo wer HGBA1c resultsregardle ss of the method used. HG BA1c results from yovanny mari HbSS, HbCC, and [...] 70-110 H (test code = MBG) PROTHROMBIN [id number] 11:28:00 Test Item Value Reference Range Interpretation Comments PROTHROMBIN TIME PATIENT 12.3 9.5-12.7 N (test code = PTP) INTERNATIONAL NORMAL RATIO 1.1 0.86-1.14 N T he INR is to be used (test code = INR) only for m onitoring oral anticoagulantth erapy. INDICATION INR VALUE ------- ------- -----1. Prophylaxis, de ep venous thrombos is, including high risk surgery. 2.0 - 3.0 2. Prophylaxis, de ep venous thrombos is, hip surgery, treatm ent for deep venous thr ombosis or pulmonary prevention of s ystemic embolism in pat ients with valvular h eart disease, atrial fibrillation, t issue heart valve, or acute myocardial infa rction. 2.0 - 3.0 3. Mechanical pros thesis heart valves, recurrent syste keshav embolism. 3.0 - 4.5 PTT [id number] 11:28:00 Test Item Value Reference Range Interpretation Comments PTT ACTIVATED (test code = APTT) 45.7 SECONDS 25.1-36.5 H PLT RESPONSE TO [id number] 11:28:00 Test Item Value Reference Range Interpretation Comments PLT RESPONSE TO 228 PRU 194-418 N P2Y12 Result s PLAVIX (test code = Interpre tation: Test PLAVRES) results are in P2Y12 Reaction Units (PRU). Pre-Drug Refere nce Range is 194-418. Pre -drug platelet functi on estimates the t otal possible platel et aggregation ind ependent of P2Y12 inhibi tor drugs. Values <194 cou ld be due to low HCT, low platelet count, or prese nce of IIb/IIIa inhibi tors. Post-Drug Resul ts: Lower PRU levels are associated with expected antiplatelet ef fect. Values may be b elow the stated referenc e range. Studies show th at patients with < 230 PRU had fewer adver se events. COMPREHENSIVE METABOLIC [id number] 11:22:00 Test Item Value Reference Range Interpretation [...] newinformation regarding the potential i nterference ofEltrombopag ( a bone marrow stimulan t used to treatthrombocyt onmenia and aplastic anemia ) with specific assays on the Vitros 5600 of which Total Protein is one of thoseassays per formed in our lab.Interfe rence testing perform ed at [facility] determined that Eltrombopag does interfere with Vitros Total Protein asfollowsEltrom bopag Interference fo r Vitros Product Total Protein:======= Eltrombopag Max Observed Av g. BiasConcentrati on Concentration Concentration== ==== 2.5 mg/dl 6.0 g/dl +0.41 +0.34 3.5 mg/dl 6.0 g /dl +0.50 +0.45 5 mg/dl 6.0 g/dl +0.73 +0.65 2.5 mg/dl 8.0 g/dl +0.44 +0.4 1 3.5 mg/dl 8.0 g/dl +0.55 +0.52 5 mg/dl 8.0 g/dl +0.86 +0.77 ALBUMIN (test 4.2 G/DL 3.5-5.0 N code = ALB) CALCIUM (test 9.4 MG/DL 8.4-10.2 N code = CA) BILIRUBIN TOTAL 1.1 MG/DL 0.2-1.3 N Eltrombopag Interference (test code = for Vitros Prod uct TBil, BILT) BuBc: Assa y Eltrombopag Sonny lyte/ Max Observed Avg. B ias Concentration C oncentration Concentration== ====TBil 7mg/dl TBil/ 1. 2mg/dl +0.23mg.dl +0.2 0mg/dlBuBc 3.5mg/dl Bu/0.8 mg/dl +0.25mg/dl +0. 24mg/dlBuBc 7 mg/dl Bu/14.2 mg/dl +0.38mg/dl +0.2 5mg/dlBuBc 5mg/dl Bc/0mg/d l +0.25mg/dl +0.15mg/dlBuBc 3.5mg/dl Bc/2.8mg/dl +0. 25mg/dl +0.23mg/dl SGOT/AST (test 62 UNITS/L 17-59 H code = AST) SGPT/ALT (test 49 UNITS/L <50 code = ALT) ALKALINE 84 UNITS/L 38-126 N PHOSPHATASE (test code = ALKP) Specimen comments: if not done in the last 72 hoursLIPID PROFILE (CORONARY RISK) 2021-01-20 11:22:00 Test Item Value Reference Range Interpretation Comments TRIGLYCERIDES (test 185 MG/DL TRIGLYCE RIDES code = TRIG) REFERENCE RANGE:Normal: < 150 mg/dLBorderline High: 150-199 mg/dLHi gh: 200-499 mg/dLVe ry High: >=500 mg/ dL CHOLESTEROL (test code 99 MG/DL <200 = CHOL) HDL CHOLESTEROL (test 27 MG/DL 40-59 L code = HDL) LIPOPROTEIN LDL (test 51 MG/DL 0-99 N OPTIM AL.........<100 code = LDL) mg/dLNEAR OPTIMAL/ABOVE OPTIMAL........ .100-12 9 mg/dL BORDERL INE HIGH.........13 0-159 mg/dL HIGH.........16 0-189 mg/dL VERY HIGH.........>/ = 190 mg/dL Specimen comments: if not done in the last 72 hoursPROTHROMBIN [id number] 11:18:00 Test Item Value Reference Range Interpretation Comments PROTHROMBIN TIME PATIENT (test code = 9.5-12.7 PTP) INTERNATIONAL NORMAL RATIO (test code = 0.86-1.14 INR) PTT [id number] 11:18:00 Test Item Value Reference Range Interpretation Comments PTT ACTIVATED (test code = APTT) SECONDS 25.1-36.5 PLT RESPONSE TO [id number] 11:18:00 Test Item Value Reference Range Interpretation Comments PLT RESPONSE TO 228 PRU 194-418 N P2Y12 Result s PLAVIX (test code = Interpre tation: Test PLAVRES) results are in P2Y12 Reaction Units (PRU). Pre-Drug Refere nce Range is 194-418. Pre -drug platelet functi on estimates the t otal possible platel et aggregation ind ependent of P2Y12 inhibi tor drugs. Values <194 cou ld be due to low HCT, low platelet count, or prese nce of IIb/IIIa inhibi tors. Post-Drug Resul ts: Lower PRU levels are associated with expected antiplatelet ef fect. Values may be b elow the stated referenc e range. Studies show th at patients with < 230 PRU had fewer adver se events. COMPREHENSIVE METABOLIC [id number] 11:13:00 Test Item Value Reference Range Interpretation [...] newinformation regarding the potential i nterference ofEltrombopag ( a bone marrow stimulan t used to treatthrombocyt onmenia and aplastic anemia ) with specific assays on the Vitros 5600 of which Total Protein is one of thoseassays per formed in our lab.Interfe rence testing perform ed at [facility] determined that Eltrombopag does interfere with Vitros Total Protein asfollowsEltrom bopag Interference fo r Vitros Product Total Protein:======= Eltrombopag Max Observed Av g. BiasConcentrati on Concentration Concentration== ==== 2.5 mg/dl 6.0 g/dl +0.41 +0.34 3.5 mg/dl 6.0 g /dl +0.50 +0.45 5 mg/dl 6 .0 g/dl +0.73 +0.65 2.5 mg/dl 8.0 g/dl +0.44 +0.4 1 3.5 mg/dl 8.0 g/dl +0.55 +0.52 5 mg/dl 8.0 g/dl +0.86 +0.77 ALBUMIN (test 4.2 G/DL 3.5-5.0 N code = ALB) CALCIUM (test 9.4 MG/DL 8.4-10.2 N code = CA) BILIRUBIN TOTAL 1.1 MG/DL 0.2-1.3 N Eltrombopag Interference (test code = for Vitros Prod uct TBil, BILT) BuBc: Assa y Eltrombopag Sonny lyte/ Max Observed Avg. B ias Concentration C oncentration Concentration== ====TBil 7mg/dl TBil/ 1. 2mg/dl +0.23mg.dl +0.2 0mg/dlBuBc 3.5mg/dl Bu/0.8 mg/dl +0.25mg/dl +0.2 4mg/dlBuBc 7 mg/dl Bu/14.2mg /dl +0.38mg/dl +0.2 5mg/dlBuBc 5mg/dl Bc/0mg/d l +0.25mg/dl +0.15mg/dlBuBc 3.5mg/dl Bc/2.8mg/dl +0. 25mg/dl +0.23mg/dl SGOT/AST (test 62 UNITS/L 17-59 H code = AST) SGPT/ALT (test 49 UNITS/L <50 code = ALT) ALKALINE 84 UNITS/L 38-126 N PHOSPHATASE (test code = ALKP) Specimen comments: if not done in the last 72 hoursLIPID PROFILE (CORONARY RISK) 2021-01-20 11:13:00 Test Item Value Reference Range Interpretation [...] if not done in the last 72 hoursCBC W/AUTO [id number] 10:54:00 Test Item Value Reference Range Interpretation [...] MG/DL 60-99 H = GLUBED) GLUCOSE BEDSIDE [id number] 19:32:00 Test Item Value Reference Range Interpretation Comments GLUCOSE BEDSIDE TESTING (test code 155 MG/DL 60-99 H = GLUBED) GLUCOSE BEDSIDE [id number] 16:10:00 Test Item Value Reference Range Interpretation Comments GLUCOSE BEDSIDE TESTING (test code 160 MG/DL 60-99 H = GLUBED) GLUCOSE BEDSIDE [id number] 11:45:00 Test Item Value Reference Range Interpretation Comments GLUCOSE BEDSIDE TESTING (test code 183 MG/DL 60-99 H = GLUBED) GLUCOSE BEDSIDE [id number] 08:25:00 Test Item Value Reference Range Interpretation Comments GLUCOSE BEDSIDE TESTING (test code 146 MG/DL 60-99 H = GLUBED) PLT RESPONSE TO [id number] 05:09:00 Test Item Value Reference Range Interpretation Comments PLT RESPONSE TO 194 PRU 194-418 N P2Y12 Result s PLAVIX (test code = Interpre tation: Test PLAVRES) results are in P2Y12 Reaction Units (PRU). Pre-Drug Refere nce Range is 194-418. Pre -drug platelet functi on estimates the t otal possible platel et aggregation ind ependent of P2Y12 inhibi tor drugs. Values <194 cou ld be due to low HCT, low platelet count, or prese nce of IIb/IIIa inhibi tors. Post-Drug Resul ts: Lower PRU levels are associated with expected antiplatelet ef fect. Values may be b elow the stated referenc e range. Studies show th at patients with < 230 PRU had fewer adver se events. GLUCOSE BEDSIDE [id number] 19:11:00 Test Item Value Reference Range Interpretation Comments GLUCOSE BEDSIDE TESTING (test code 156 MG/DL 60-99 H = GLUBED) GLUCOSE BEDSIDE [id number] 16:04:00 Test Item Value Reference Range Interpretation Comments GLUCOSE BEDSIDE TESTING (test code 143 MG/DL 60-99 H = GLUBED) GLUCOSE BEDSIDE [id number] 11:11:00 Test Item Value Reference Range Interpretation Comments GLUCOSE BEDSIDE TESTING (test code 198 MG/DL 60-99 H = GLUBED) GLUCOSE BEDSIDE [id number] 07:49:00 Test Item Value Reference Range Interpretation Comments GLUCOSE BEDSIDE TESTING (test code 162 MG/DL 60-99 H = GLUBED) GLUCOSE BEDSIDE [id number] 19:50:00 Test Item Value Reference Range Interpretation Comments GLUCOSE BEDSIDE TESTING (test code 194 MG/DL 60-99 H = GLUBED) GLUCOSE BEDSIDE [id number] 16:09:00 Test Item Value Reference Range Interpretation Comments GLUCOSE BEDSIDE TESTING (test code 127 MG/DL 60-99 H = GLUBED) GLUCOSE BEDSIDE [id number] 15:44:00 Test Item Value Reference Range Interpretation Comments GLUCOSE BEDSIDE TESTING (test code 136 MG/DL 60-99 H = GLUBED) GLUCOSE BEDSIDE [id number] 11:20:00 Test Item Value Reference Range Interpretation Comments GLUCOSE BEDSIDE TESTING (test code 154 MG/DL 60-99 H = GLUBED) GLUCOSE BEDSIDE [id number] 07:15:00 Test Item Value Reference Range Interpretation Comments GLUCOSE BEDSIDE TESTING (test code 147 MG/DL 60-99 H = GLUBED) GLUCOSE BEDSIDE [id number] 18:56:00 Test Item Value Reference Range Interpretation Comments GLUCOSE BEDSIDE TESTING (test code 208 MG/DL 60-99 H = GLUBED) GLUCOSE BEDSIDE [id number] 15:54:00 Test Item Value Reference Range Interpretation Comments GLUCOSE BEDSIDE TESTING (test code 142 MG/DL 60-99 H = GLUBED) GLUCOSE BEDSIDE [id number] 11:08:00 Test Item Value Reference Range Interpretation Comments GLUCOSE BEDSIDE TESTING (test code 224 MG/DL 60-99 H = GLUBED) GLUCOSE BEDSIDE [id number] 07:28:00 Test Item Value Reference Range Interpretation Comments GLUCOSE BEDSIDE TESTING (test code 156 MG/DL 60-99 H = GLUBED) BASIC METABOLIC [id number] 04:46:00 Test Item Value Reference Range Interpretation [...] 9.1 MG/DL 8.4-10.2 N CA) CBC W/AUTO [id number] 04:27:00 Test Item Value Reference Range Interpretation [...] 0.00 K/mm3 0.0-0.1 N NRBC#) GLUCOSE BEDSIDE [id number] 19:26:00 Test Item Value Reference Range Interpretation Comments GLUCOSE BEDSIDE TESTING (test code 123 MG/DL 60-99 H = GLUBED) GLUCOSE BEDSIDE [id number] 15:35:00 Test Item Value Reference Range Interpretation Comments GLUCOSE BEDSIDE TESTING (test code 185 MG/DL 60-99 H = GLUBED) GLUCOSE BEDSIDE [id number] 10:36:00 Test Item Value Reference Range Interpretation [...] LIPOPROTEIN LDL (test 64 MG/DL 0-99 N OPTIM AL.........<100 code = LDL) mg/dLNEAR OPTIMAL/ABOVE OPTIMAL........ .100-12 9 mg/dL BORDERL INE HIGH.........13 0-159 mg/dL HIGH.........16 0-189 mg/dL VERY HIGH.........>/ = 190 mg/dL [id number] 02:58:00 Test Item Value Reference Range Interpretation Comments TROPONIN-I (test 0.337 NG/ML 0.012-0.033 HH CALLED TO Jose Garcia& code = TROPI) [...] LIPOPROTEIN LDL (test 64 MG/DL 0-99 N OPTIM AL.........<100 code = LDL) mg/dLNEAR OPTIMAL/ABOVE OPTIMAL........ .100-12 9 mg/dL BORDERL INE HIGH.........13 0-159 mg/dL HIGH.........16 0-189 mg/dL VERY HIGH.........>/ = 190 mg/dL [id number] 02:52:00 Test Item Value Reference Range Interpretation Comments TROPONIN-I (test code = TROPI) NG/ML 0.0-0.045 GLYCOSYLATED HEMOGLOBIN [id number] 02:45:00 Test Item Value Reference Range Interpretation Comments GLYCOSYLATED 7.2 % 4.8-5.9 H Any condition t hat HEMOGLOBIN (HA1C) shortens e rythocyte (test code = survival or dec reasesmean GLYHGB) erythrocyte age (e.g., recovery from a cute blood loss,hemolytic anemia) will falsely lo wer HGBA1c resultsregardle ss of the method used. HG BA1c results from pa tientswith HbSS, HbCC, and HbSc must be interpreted [...] LDL (test MG/DL 0-99 code = LDL) [id number] 02:42:00 Test Item Value Reference Range Interpretation Comments TROPONIN-I (test code = TROPI) NG/ML 0.0-0.045 COVID 19 Asymptomatic IH [id number] 00:41:00 Test Item Value Reference Range Interpretation Comments COVID 19 NEGATIVE Negative "Negative resul ts from Asymptomatic IH AG patients with symptom (test code = onset beyondfiv e days, COVNONPUIAG) should be treat ed as presumptive, andconfirmation with a molecular assay [...] amount of virus (antigen) in the sample." [id number] 23:19:00 Test Item Value Reference Range Interpretation Comments TROPONIN-I (test 0.457 NG/ML 0.012-0.033 HH CALLED TO Laura HARRIS& code = TROPI) READBACK ON AT 2319 BY Luisa Givens [id number] 21:32:00 Test Item Value Reference Range Interpretation Comments TROPONIN-I (test 0.500 NG/ML 0.012-0.033 HH CALLED TO Tere VIZCARRA & code = TROPI) READBACK ON AT 2131 BY Luisa Givens [id number] 21:16:00 Test Item Value Reference Range Interpretation Comments MAGNESIUM (test code = MAG) 2.3 MG/DL 1.6-2.3 N PROTHROMBIN [id number] 21:02:00 Test Item Value Reference Range Interpretation Comments PROTHROMBIN TIME PATIENT 11.6 9.5-12.7 N (test code = PTP) INTERNATIONAL NORMAL RATIO 1.0 0.86-1.14 N T he INR is to be used (test code = INR) only for m onitoring oral anticoagulantth erapy. INDICATION INR VALUE ------- ------- -----1. Prophylaxis, de ep venous thrombos is, including high risk surgery. 2.0 - 3.0 2. Prophylaxis, de ep venous thrombos is, hip surgery, treatm ent for deep venous thr ombosis or pulmonary prevention of s ystemic embolism in pat ients with valvular h eart disease, atrial fibrillation, t issue heart valve, or acute myocardial infarction. 2.0 - 3.0 3. Mechanical prosthesis hear t valves, recurre nt systemic emboli sm. 3.0 - 4.5 PTT [id number] 21:02:00 Test Item Value Reference Range Interpretation Comments PTT ACTIVATED (test code = APTT) 43.5 SECONDS 25.1-36.5 H GLUCOSE BEDSIDE [id number] 19:02:00 Test Item Value Reference Range Interpretation Comments GLUCOSE BEDSIDE TESTING (test code 218 MG/DL 60-99 H = GLUBED) BASIC METABOLIC [id number] 16:18:00 Test Item Value Reference Range Interpretation [...] 9.6 MG/DL 8.4-10.2 N CA) LIPOPROTEIN LDL [id number] 16:18:00 Test Item Value Reference Range Interpretation Comments LIPOPROTEIN LDL DIRECT 66 mg/dL 100-129 L ===== (test code = LDLDIR) ======= ==Refe rence Interval: mg/dL mmol/L--------- ------ ------ ------ --Optimal <100 <2.6Near/above optimal 100-129 2.6-3.3Borderli ne High 130-159 3.4-4.1High 16 0-189 4.1-4.9Very Hig h >=190 >=4.9==== ===== This LDL result is a direct measurement.=== ====== [id number] 16:18:00 Test Item Value Reference Range Interpretation Comments TROPONIN-I (test 0.521 NG/ML 0.012-0.033 HH CALLED TO Sihva SAEED & code = TROPI) READBACK ON AT 1545 BY Luisa Givens BASIC METABOLIC [id number] 15:46:00 Test Item Value Reference Range Interpretation [...] 9.6 MG/DL 8.4-10.2 N CA) LIPOPROTEIN LDL [id number] 15:46:00 Test Item Value Reference Range Interpretation Comments LIPOPROTEIN LDL DIRECT (test code = mg/dL 100-129 LDLDIR) [id number] 15:46:00 Test Item Value Reference Range Interpretation Comments TROPONIN-I (test 0.521 NG/ML 0.012-0.033 HH CALLED TO Shiva SAEED & code = TROPI) READBACK ON AT 1545 BY Luisa Givens BASIC METABOLIC [id number] 15:09:00 Test Item Value Reference Range Interpretation [...] code = 9.6 MG/DL 8.4-10.2 N CA) [id number] 15:09:00 Test Item Value Reference Range Interpretation Comments TROPONIN-I (test code = TROPI) NG/ML 0.0-0.045 CBC W/AUTO [id number] 14:46:00 Test Item Value Reference Range Interpretation [...] = 0.00 K/mm3 0.0-0.1 N NRBC#) POCT-GLUCOSE [id number] 08:24:00 Test Item Value Reference Range Interpretation Comments POC-GLUCOSE METER 199 mg/dL 70-110 H TESTED AT [facility] 67[address] ([facility]) (test code = ARRON Vasiliy [place] 1538) [address] BASIC METABOLIC [id number] 04:13:00 Test Item Value Reference Range Interpretation [...] PATIEN TS. CBC W/PLT COUNT & AUTO [id number] 04:00:00 Test Item Value Reference Range Interpretation [...] PERCENT (BEAKER) (test code = 2801) POCT-GLUCOSE [id number] 21:42:00 Test Item Value Reference Range Interpretation Comments POC-GLUCOSE METER 218 mg/dL 70-110 H TESTED AT [place] [address] ([facility]) (test code = ARRON Amanda [facility] 1538) [address] CBC (HEMOGRAM ONLY)2018-10-01 19:29:00 Test Item Value [...] WBC 0-0 (BEAKER) (test code = 413) POCT-GLUCOSE [id number] 17:50:00 Test Item Value Reference Range Interpretation Comments POC-GLUCOSE METER 139 mg/dL 70-110 H [facility] [place] [address] [facility] (test code = [place] Vasiliy [place] 1538) [address] [id number] 16:49:00 Test Item Value Reference Range Interpretation Comments ACTIVATED CLOTTING TIME 114 sec TEST ED AT [place] [address] ([facility]) (test code = [place] 441) [address] POCT-GLUCOSE [id number] 12:01:00 Test Item Value Reference Range Interpretation Comments POC-GLUCOSE METER 235 mg/dL 70-110 H TESTED AT [place] [address] ([facility]) (test code = ARRON Amanda [place] 1538) [address] HEMOGLOBIN [id number] 09:12:00 Test Item Value Reference Range Interpretation Comments HEMOGLOBIN A1C ([facility]) (test code = 8.5 % 4.3-6.1 H 368) POCT-GLUCOSE [id number] 08:19:00 Test Item Value Reference Range Interpretation Comments POC-GLUCOSE METER 284 mg/dL 70-110 H TESTED AT [place] [address] ([facility]) (test code = ARRON Amanda [place] 1538) [address] TROPONIN [id number] 06:57:00 Test Item Value Reference Range Interpretation Comments TROPONIN I ([facility]) (test code = 1.35 ng/mL [...] failure, acidosis, acute neurological disease, and persistent tachyarrhythmia.[id number] 06:43:00 Test Item Value Reference Range Interpretation Comments PARTIAL THROMBOPLASTIN TIME 57.7 seconds 22.5-36.0 H ([facility]) (test code = 760) TROPONIN [id number] 01:21:00 Test Item Value Reference Range Interpretation Comments TROPONIN I ([facility]) (test code = 1.68 ng/mL [...] failure, acidosis, acute neurological disease, and persistent tachyarrhythmia.[id number] 00:50:00 Test Item Value Reference Range Interpretation Comments PARTIAL THROMBOPLASTIN TIME 42.4 seconds 22.5-36.0 H ([facility]) (test code = 760) POCT-GLUCOSE [id number] 21:47:00 Test Item Value Reference Range Interpretation Comments POC-GLUCOSE METER 277 mg/dL 70-110 H TESTED AT [facility] 67[address] ([facility]) (test code = ARRON [place] 1538) [address] RAD, CHEST, 1 VIEW, NON [id number] 19:55:00Reason for exam:->chest painShould this be performed at the bedside?->YesFINAL REPORT AP view of the chest dated 09/30/2018 COMPARISON: September 17, 2011 CL INICAL INFORMATION: chest pain Comment: Heart is normal in size. Pulmonary vasculature is unremarkable. Lungs are clear. No pulmonary infiltrate or pleural effusion is present. Impression: No active cardiopulmonary disease or interval change. Signed: Prashanth Huntereport Verified Date/Time: 09/30/201819:55:13 Reading Location: [address] Consult Reading Room B-TYPE NATRIURETIC FACTOR (BNP) 2018-09-30 18:03:00 Test Item Value Reference Range Interpretation Comments B-TYPE NATRIURETIC PEPTIDE ([facility]) < pg/mL 0-100 (test code = 700) TROPONIN [id number] 18:00:00 Test Item Value Reference Range Interpretation Comments TROPONIN I ([facility]) (test code = 0.98 ng/mL 0.00-0.03 397) Troponin I (TnI) levels [...] failure, acidosis, acute neurological disease, and persistent tachyarrhythmia.[id number] 17:46:00 Test Item Value Reference Range Interpretation Comments MAGNESIUM (BEAKER) (test code = 2.0 mg/dL 1.6-2.6 627) COMPREHENSIVE METABOLIC [id number] 17:46:00 Test Item Value Reference Range Interpretation [...] NOT APPLICABLE FOR DIALYSIS PATIEN TS. LIPID [id number] 17:46:00 Test Item Value Reference Range Interpretation Comments TRIGLYCERIDES (BEAKER) (test code = 175 mg/dL 540) CHOLESTEROL (BEAKER) (test code = 200 mg/dL 631) HDL CHOLESTEROL (BEAKER) (test code 40 mg/dL = 976) LDL CHOLESTEROL CALCULATED (BEAKER) 125 mg/dL (test code = 633) Triglyceride Reference Range: Low Risk <150 Borderline 150-199 High Risk 200- 499 Very High Risk >=500Cholesterol Reference Range: Low Risk <200 Borderline 200-239 High Risk >240HDL Cholesterol Reference Range: Low Risk >=60 High Risk <40LDL Cholesterol Reference Range: Optimal <100 Near Optimal 100-129 Borderline 130-159 High 160-189 Very High >=[id number] 17:34:00 Test Item Value Reference Range Interpretation Comments PARTIAL THROMBOPLASTIN TIME 46.0 seconds 22.5-36.0 H (BEAKER) (test code = 760) CBC W/PLT COUNT & AUTO [id number] 17:28:00 Test Item Value Reference Range Interpretation [...] code = 416) BASOPHILS ABSOLUTE COUNT (BEAKER) 0.07 K/ L 0.01-0.08 (test code = 417) IMMATURE GRANULOCYTES-RELATIVE 2 % 0-1 H PERCENT (BEAKER) (test code = 2801) POCT-GLUCOSE [id number] 17:20:00 Test Item Value Reference Range Interpretation Comments POC-GLUCOSE METER 212 mg/dL 70-110 H TESTED AT [facility] 67[address] ([facility]) (test code = ARRON [place] 1538) [address] [id number] 10:55:00 Test Item Value Reference Range Interpretation Comments TSH (test code = TSH) 0.252 0.360-3.740 L [facility] HospitalQtnezxySPWORLECL8836-67-95 10:55:00 Test Item Value Reference Range Interpretation Comments Phosphorus (test code = Phosphorus) 2.8 2.5-4.5 N [id number] 10:55:00 Test Item Value Reference Range Interpretation Comments Magnesium Lvl (test code = Magnesium 1.6 1.8-2.4 L Lvl) [id number] 10:55:00 Test Item Value Reference Range Interpretation Comments AGAP (test code = AGAP) 15.0 10.0-20.0 N [facility]iscoYzpyjogZFGKOAINF1421-09-81 10:55:00 Test Item Value Reference Range Interpretation Comments B/C Ratio (test code = B/C Ratio) 10 6-25 N [facility] CenterJqtxychTXESIZILD0747-58-32 10:55:00 Test Item Value Reference Range Interpretation Comments A/G Ratio (test code = A/G Ratio) 1.1 0.7-1.6 N [facility] HospitalQfvefdbVYTLMWCEE4555-37-94 10:55:00 Test Item Value Reference Range Interpretation Comments Globulin (test code = Globulin) 3.1 2.0-4.0 N [facility] HospitalVptipywHVNAPTJVW2958-68-35 10:55:00 Test Item Value Reference Range Interpretation Comments AST (test code = AST) 107 See_Comment H [Auto mated message] The system which ge nerated this result transmit quoc reference range : <=37. The reference range was not used to interpr et this result as marco l/abnormal. [facility] HospitalPufcoreSKLHFUDJI6547-06-22 10:55:00 Test Item Value Reference Range Interpretation Comments Total Protein (test code = Total 6.5 6.4-8.4 N Protein) [facility] HospitalOxjiepaTLDBDKCZR1324-19-53 10:55:00 Test Item Value Reference Range Interpretation Comments Bili Total (test code = Bili Total) 1.0 0.2-1.3 N [facility] HospitalDhwsdoaVJZTJNMUT8470-46-75 10:55:00 Test Item Value Reference Range Interpretation Comments BUN (test code = BUN) 10 7-22 N [facility] HospitalAegcznlZFOSTFCDT3663-37-61 10:55:00 Test Item Value Reference Range Interpretation Comments Creatinine Lvl (test code = Creatinine 1.0 0.5-1.4 N Lvl) [facility] HospitalVwmxdxsCLLVVDSVD4440-46-89 10:55:00 Test Item Value Reference Range Interpretation Comments ALT (test code = ALT) 60 See_Comment N [Auto mated message] The system which ge nerated this result transmit quoc reference range : <=65. The reference range was not used to interpr et this result as marco l/abnormal. [facility] HospitalEupuqgoGQJUDEFPP2952-08-88 10:55:00 Test Item Value Reference Range Interpretation Comments Albumin Lvl (test code = Albumin Lvl) 3.4 3.5-5.0 L [facility] HospitalHjytscsNMQVAMNEU9873-37-00 10:55:00 Test Item Value Reference Range Interpretation Comments Glucose Lvl (test code = Glucose Lvl) 129 [facility] HospitalUttnutmWDSWSOHWI7218-75-83 10:55:00 Test Item Value Reference Range Interpretation Comments Alk Phos (test code = Alk Phos) 122 39-136 N [facility] HospitalLjracsjMXGTQZZST8698-52-89 10:55:00 Test Item Value Reference Range Interpretation Comments Potassium Lvl (test code = Potassium 4.0 3.5-5.1 N Lvl) [facility] HospitalBcdbcovTWSTCFSEP8783-84-86 10:55:00 Test Item Value Reference Range Interpretation Comments Chloride Lvl (test code = Chloride Lvl) 102 95-109 N [facility] HospitalCeejdifWBRBDFUDJ8484-50-88 10:55:00 Test Item Value Reference Range Interpretation Comments Sodium Lvl (test code = Sodium Lvl) 137 135-145 N [facility] HospitalDhqbjnaYJBDJYMET1850-97-67 10:55:00 Test Item Value Reference Range Interpretation Comments CO2 (test code = CO2) 24 24-32 N [facility] HospitalNhymqxkRIOGOAJUI7036-14-59 10:55:00 Test Item Value Reference Range Interpretation Comments Calcium Lvl (test code = Calcium Lvl) 8.3 8.5-10.5 L [facility] HospitalXzxpilbRBLPPTJUD1692-57-86 10:55:00 Test Item Value Reference Range Interpretation Comments GGT (test code = GGT) 297 5-85 H [facility] HospitalRrodxisQXJMRZPVNZ4505-35-16 10:55:00 Test Item Value Reference Range Interpretation Comments INR (test code = INR) 1.01 0.85-1.17 N [facility] HospitalOajqsutPQJPFUWLFH6813-04-36 10:55:00 Test Item Value Reference Range Interpretation Comments PTT (test code = PTT) 32.0 s 22.9-35.8 N [facility] HospitalUpwagoaRFICNHBBRL2501-68-16 10:55:00 Test Item Value Reference Range Interpretation Comments PT (test code = PT) 13.3 s 12.0-14.7 N [facility] HospitalCthrwhhKEBRAMHUXZ1807-51-36 10:55:00 Test Item Value Reference Range Interpretation Comments Hgb (test code = Hgb) 13.0 14.0-18.0 L [facility] HospitalSnkavpjNKUTQNQTLH2907-63-65 10:55:00 Test Item Value Reference Range Interpretation Comments MCHC (test code = MCHC) 34.8 32.0-36.0 N [facility] HospitalMutcoyaSATJGJSKKA8773-93-34 10:55:00 Test Item Value Reference Range Interpretation Comments RDW (test code = RDW) 13.9 11.5-14.5 N [facility] HospitalDazkkimMPOAITJOWS8060-70-41 10:55:00 Test Item Value Reference Range Interpretation Comments Platelet (test code = Platelet) 199 133-450 N [facility] HospitalAhvjsssBOFKRQFJFH6485-17-32 10:55:00 Test Item Value Reference Range Interpretation Comments MPV (test code = MPV) 7.4 7.4-10.4 N [facility] HospitalKprfoyfSEWEJHQGHR7801-62-97 10:55:00 Test Item Value Reference Range Interpretation Comments Hct (test code = Hct) 37.4 42.0-54.0 L [facility] HospitalWrdtupyCODTSQUJIR7206-76-99 10:55:00 Test Item Value Reference Range Interpretation Comments MCV (test code = MCV) 91.3 80.0-94.0 N [facility] HospitalDpvviloXGAAGXMRPX4760-85-83 10:55:00 Test Item Value Reference Range Interpretation Comments MCH (test code = MCH) 31.8 pg 27.0-31.0 H [facility] HospitalDbqgsevOLMLICKRBD8893-33-45 10:55:00 Test Item Value Reference Range Interpretation Comments WBC (test code = WBC) 5.2 3.7-10.4 N [facility] HospitalRclvwsoWMRRMDGXQZ4998-61-87 10:55:00 Test Item Value Reference Range Interpretation Comments RBC (test code = RBC) 4.10 4.70-6.10 L [facility] HospitalTpiyabpYZZXJDILUP8405-05-70 10:55:00 Test Item Value Reference Range Interpretation Comments Basophils # (test code 0.0 See_Comment N [Aut omated message] The = Basophils #) system which generated this result tra nsmitted reference range : <=0.2. The reference r ana luisa was not used to int erpret this result as normal/abnormal . [facility] HospitalIftcncdCTYDLENXOW1483-02-30 10:55:00 Test Item Value Reference Range Interpretation Comments Eosinophils # (test code 0.1 See_Comment N [A utomated message] The = Eosinophils #) system whic h generated this result tra nsmitted reference range : <=0.5. The reference r ana luisa was not used to int erpret this result as normal/abnormal . [facility] HospitalNfjtiwuPKULNTMBNK4272-01-93 10:55:00 Test Item Value Reference Range Interpretation Comments Monocytes (test code = Monocytes) 14.4 2.0-12.0 H [facility] HospitalKjplhsjDFRHWWBEJG7508-31-15 10:55:00 Test Item Value Reference Range Interpretation Comments Lymphocytes (test code = Lymphocytes) 14.6 20.0-40.0 L [facility] HospitalCmpbxlnPZLARVKOWY7814-45-10 10:55:00 Test Item Value Reference Range Interpretation Comments Basophils (test code = 0.2 See_Comment N [Aut omated message] The Basophils) system which ge nerated this result tra nsmitted reference range : <=1.0. The reference r ana luisa was not used to int erpret this result as normal/abnormal . [facility] HospitalCfqlnhoDPXHRIXPYM4622-97-59 10:55:00 Test Item Value Reference Range Interpretation Comments Eosinophils (test code = 2.4 See_Comment N [A utomated message] The Eosinophils) system which ge nerated this result tra nsmitted reference range : <=4.0. The reference r ana luisa was not used to int erpret this result as normal/abnormal . [facility] HospitalJllhotrNDQFCLADDC5481-90-92 10:55:00 Test Item Value Reference Range Interpretation Comments Segs-Bands # (test code = Segs-Bands #) 3.6 1.5-8.1 N [facility] HospitalYezedejAUINMYFMWW3995-15-77 10:55:00 Test Item Value Reference Range Interpretation Comments Lymphocytes # (test code = Lymphocytes 0.8 1.0-5.5 L #) [facility] HospitalHxrgmquNTLTRUOESH5254-20-57 10:55:00 Test Item Value Reference Range Interpretation Comments Monocytes # (test code 0.7 See_Comment N [Aut omated message] The = Monocytes #) system which generated this result tra nsmitted reference range : <=0.8. The reference r ana luisa was not used to int erpret this result as normal/abnormal . [facility] HospitalHvbfaupBYYNHSFKYU2169-76-06 10:55:00 Test Item Value Reference Range Interpretation Comments Segs (test code = Segs) 68.4 45.0-75.[address] [facility] CenterUuvtkgjIAUQBZOWZG2336-63-91 10:55:00 Test Item Value Reference Range Interpretation Comments Hep A IgM (test code Negative *NA*(10/01/2011 = Hep A IgM) 04:55:00) [facility] CenterMlpxgjdTDSVEPLQYP8700-11-64 10:55:00 Test Item Value Reference Range Interpretation Comments Hep C Ab (test code = Positive *NA*(10/01/2011 Hep C Ab) 04:55:00) [facility] CenterDlwzsskMTBXADCEEO5782-79-65 10:55:00 Test Item Value Reference Range Interpretation Comments Hep Bs Ag (test code Negative *NA*(10/01/2011 = Hep Bs Ag) 04:55:00) [facility] CenterNsoyvmzDVXHFXEUMJ7341-71-57 10:55:00 Test Item Value Reference Range Interpretation Comments Hep Bs Ab (test code = Hep Bs Ab) 3.[address] [facility] CenterYktljvsEVQGXOICUF8693-71-20 10:55:00 Test Item Value Reference Range Interpretation Comments Hep B Core Ab (test Negative *NA*(10/01/2011 code = Hep B Core Ab) 04:55:00) [facility] HospitalCewnuvsSVCPGFUYP3640-09-16 10:55:00 Test Item Value Reference Range Interpretation Comments TSH (test code = TSH) 0.252 0.360-3.740 L [facility] HospitalHacjzcqVQBWPABOL9669-64-98 10:55:00 Test Item Value Reference Range Interpretation Comments Phosphorus (test code = Phosphorus) 2.8 2.5-4.5 N [facility] HospitalPunhiuwTWSMPCJCB3464-20-95 10:55:00 Test Item Value Reference Range Interpretation Comments Magnesium Lvl (test code = Magnesium 1.6 1.8-2.4 L Lvl) [facility] HospitalEphdawnSVSMSXCAO7772-32-92 10:55:00 Test Item Value Reference Range Interpretation Comments AGAP (test code = AGAP) 15.0 10.0-20.0 N [facility] HospitalXipdzxtRACPSDOLW2782-69-91 10:55:00 Test Item Value Reference Range Interpretation Comments B/C Ratio (test code = B/C Ratio) 10 6-25 N [facility] HospitalLgbexwjEUMBJNVOP8408-47-79 10:55:00 Test Item Value Reference Range Interpretation Comments A/G Ratio (test code = A/G Ratio) 1.1 0.7-1.6 N [facility] HospitalJdsxokhFWPXAFLBA3464-70-68 10:55:00 Test Item Value Reference Range Interpretation Comments Globulin (test code = Globulin) 3.1 2.0-4.0 N [facility] HospitalJopvevuWADAPUGGK1850-74-32 10:55:00 Test Item Value Reference Range Interpretation Comments AST (test code = AST) 107 See_Comment H [Auto mated message] The system which ge nerated this result transmit quoc reference range : <=37. The reference range was not used to interpr et this result as marco l/abnormal. [facility] HospitalNhmldocZXLOMEPOL6870-40-25 10:55:00 Test Item Value Reference Range Interpretation Comments Total Protein (test code = Total 6.5 6.4-8.4 N Protein) [facility] HospitalEluslduQNMFLMCMM0118-65-25 10:55:00 Test Item Value Reference Range Interpretation Comments Bili Total (test code = Bili Total) 1.0 0.2-1.3 N [facility] HospitalBfogalyXFAXHJWPD0988-36-91 10:55:00 Test Item Value Reference Range Interpretation Comments BUN (test code = BUN) 10 7-22 N [facility] HospitalNpjreimZMZJCQVIU1378-82-75 10:55:00 Test Item Value Reference Range Interpretation Comments Creatinine Lvl (test code = Creatinine 1.0 0.5-1.4 N Lvl) [facility] HospitalWbnwjckSYYGPBEFN3250-24-75 10:55:00 Test Item Value Reference Range Interpretation Comments ALT (test code = ALT) 60 See_Comment N [Auto mated message] The system which ge nerated this result transmit quoc reference range : <=65. The reference range was not used to interpr et this result as marco l/abnormal. [facility] HospitalZspuzfcSKLXEWFTK8403-10-14 10:55:00 Test Item Value Reference Range Interpretation Comments Albumin Lvl (test code = Albumin Lvl) 3.4 3.5-5.0 L [facility] HospitalGvmytvsLTCWXOVBI8932-97-91 10:55:00 Test Item Value Reference Range Interpretation Comments Glucose Lvl (test code = Glucose Lvl) 129 [facility] HospitalIhyhdzeFXNVAYPXG7368-49-56 10:55:00 Test Item Value Reference Range Interpretation Comments Alk Phos (test code = Alk Phos) 122 39-136 N [facility] HospitalAikiomkMYGARCDKJ3079-88-73 10:55:00 Test Item Value Reference Range Interpretation Comments Potassium Lvl (test code = Potassium 4.0 3.5-5.1 N Lvl) [facility] HospitalYojpyjaGLBHYMNNO9465-11-97 10:55:00 Test Item Value Reference Range Interpretation Comments Chloride Lvl (test code = Chloride Lvl) 102 95-109 N [facility] HospitalYoklyxnZKRDBWIYJ6875-46-17 10:55:00 Test Item Value Reference Range Interpretation Comments Sodium Lvl (test code = Sodium Lvl) 137 135-145 N [facility] HospitalQjneypiEVZIDVUTB3586-36-64 10:55:00 Test Item Value Reference Range Interpretation Comments CO2 (test code = CO2) 24 24-32 N [facility] HospitalVkxxnjpJOQXFQDPO4661-16-28 10:55:00 Test Item Value Reference Range Interpretation Comments Calcium Lvl (test code = Calcium Lvl) 8.3 8.5-10.5 L [facility] HospitalEevqewrNVQOGTETL2144-61-44 10:55:00 Test Item Value Reference Range Interpretation Comments GGT (test code = GGT) 297 5-85 H [facility] HospitalFydqjnyWCJTRKKUPZ3784-35-59 10:55:00 Test Item Value Reference Range Interpretation Comments INR (test code = INR) 1.01 0.85-1.17 N [facility] HospitalRvwvyrjZUDZDMYDKG2475-65-56 10:55:00 Test Item Value Reference Range Interpretation Comments PTT (test code = PTT) 32.0 s 22.9-35.8 N [facility] HospitalErbrvgzLMLUPATDGE0070-85-83 10:55:00 Test Item Value Reference Range Interpretation Comments PT (test code = PT) 13.3 s 12.0-14.7 N [facility] HospitalKjdowxnRBMCKBVIBM2741-69-25 10:55:00 Test Item Value Reference Range Interpretation Comments Hgb (test code = Hgb) 13.0 14.0-18.0 L [facility] HospitalIfrunucCSYNAACUDB2992-09-48 10:55:00 Test Item Value Reference Range Interpretation Comments MCHC (test code = MCHC) 34.8 32.0-36.0 N [facility] HospitalGdjecdpJNORKIDPFI7944-32-62 10:55:00 Test Item Value Reference Range Interpretation Comments RDW (test code = RDW) 13.9 11.5-14.5 N [facility] HospitalJmzwmfcIZYYLWAFVV6944-18-78 10:55:00 Test Item Value Reference Range Interpretation Comments Platelet (test code = Platelet) 199 133-450 N [facility] HospitalXgxnmacHTJVDQGYMA9011-80-43 10:55:00 Test Item Value Reference Range Interpretation Comments MPV (test code = MPV) 7.4 7.4-10.4 N [facility] HospitalGukvelnZSENFKXPHH7197-65-62 10:55:00 Test Item Value Reference Range Interpretation Comments Hct (test code = Hct) 37.4 42.0-54.0 L [facility] HospitalKdjbjxoXPMKYQYYQC0374-28-05 10:55:00 Test Item Value Reference Range Interpretation Comments MCV (test code = MCV) 91.3 80.0-94.0 N [facility] HospitalZplbnnxJCSJAEEETL4894-20-32 10:55:00 Test Item Value Reference Range Interpretation Comments MCH (test code = MCH) 31.8 pg 27.0-31.0 H [facility] HospitalYeuvdwqAGTIOCVSYU7338-45-29 10:55:00 Test Item Value Reference Range Interpretation Comments WBC (test code = WBC) 5.2 3.7-10.4 N [facility] HospitalKtikggnCHMHHEKYIE5252-38-37 10:55:00 Test Item Value Reference Range Interpretation Comments RBC (test code = RBC) 4.10 4.70-6.10 L [facility] HospitalGecyyhmJKBXWUDVIH9298-47-99 10:55:00 Test Item Value Reference Range Interpretation Comments Basophils # (test code 0.0 See_Comment N [Aut omated message] The = Basophils #) system which generated this result tra nsmitted reference range : <=0.2. The reference r ana luisa was not used to int erpret this result as normal/abnormal . [facility] HospitalUxzhgvcZXUJXHLBKO0412-85-67 10:55:00 Test Item Value Reference Range Interpretation Comments Eosinophils # (test code 0.1 See_Comment N [A utomated message] The = Eosinophils #) system whic h generated this result tra nsmitted reference range : <=0.5. The reference r ana luisa was not used to int erpret this result as normal/abnormal . [facility] HospitalPosovhwZURSTNBNSH9273-24-49 10:55:00 Test Item Value Reference Range Interpretation Comments Monocytes (test code = Monocytes) 14.4 2.0-12.0 H [facility] HospitalDidgtzsCDWUGRSYSF4809-44-23 10:55:00 Test Item Value Reference Range Interpretation Comments Lymphocytes (test code = Lymphocytes) 14.6 20.0-40.0 L [facility] HospitalHphoopxYJGBIBJWCG4746-85-95 10:55:00 Test Item Value Reference Range Interpretation Comments Basophils (test code = 0.2 See_Comment N [Aut omated message] The Basophils) system which ge nerated this result tra nsmitted reference range : <=1.0. The reference r ana luisa was not used to int erpret this result as normal/abnormal . [facility] HospitalEobzxroNDZDNJIVAK7839-16-33 10:55:00 Test Item Value Reference Range Interpretation Comments Eosinophils (test code = 2.4 See_Comment N [A utomated message] The Eosinophils) system which ge nerated this result tra nsmitted reference range : <=4.0. The reference r ana luisa was not used to int erpret this result as normal/abnormal . [facility] HospitalEeakwvbLXUWEJRNTB5098-75-46 10:55:00 Test Item Value Reference Range Interpretation Comments Segs-Bands # (test code = Segs-Bands #) 3.6 1.5-8.1 N [facility] [facility]D3847-98-41 10:55:00 Test Item Value Reference Range Interpretation Comments Lymphocytes # (test code = Lymphocytes 0.8 1.0-5.5 L #) [facility] HospitalBrthjllXUPTFCUTRZ0020-74-76 10:55:00 Test Item Value Reference Range Interpretation Comments Monocytes # (test code 0.7 See_Comment N [Aut omated message] The = Monocytes #) system which generated this result tra nsmitted reference range : <=0.8. The reference r ana luisa was not used to int erpret this result as normal/abnormal . [facility] HospitalYlrmwdxDFVAGPMOZP3694-54-29 10:55:00 Test Item Value Reference Range Interpretation Comments Segs (test code = Segs) 68.4 45.0-75.[address] [facility] CenterNyrynfkQWKHCXGZDU7156-11-85 10:55:00 Test Item Value Reference Range Interpretation Comments Hep A IgM (test code Negative *NA*(10/01/2011 = Hep A IgM) 04:55:00) [facility] CenterEcfrezbSWLLHYRASW1634-77-72 10:55:00 Test Item Value Reference Range Interpretation Comments Hep C Ab (test code = Positive *NA*(10/01/2011 Hep C Ab) 04:55:00) [facility] CenterVjektbtUJDEQAFVJT4534-28-18 10:55:00 Test Item Value Reference Range Interpretation Comments Hep Bs Ag (test code Negative *NA*(10/01/2011 = Hep Bs Ag) 04:55:00) [facility] CenterJvwtbskJTRBYWJFTH5908-16-91 10:55:00 Test Item Value Reference Range Interpretation Comments Hep Bs Ab (test code = Hep Bs Ab) 3.[address] [facility] CenterTiguhkaQSAHDNGIOZ4991-85-50 10:55:00 Test Item Value Reference Range Interpretation Comments Hep B Core Ab (test Negative *NA*(10/01/2011 code = Hep B Core Ab) 04:55:00) [facility] HospitalVuglbclQHYSWJNZA7392-20-87 19:55:00 Test Item Value Reference Range Interpretation Comments Lactic Acid Lvl (test code = Lactic 1.9 0.5-2.2 N Acid Lvl) [facility] HospitalWvbdkjdXVMXYAOMK2279-66-84 19:55:00 Test Item Value Reference Range Interpretation Comments Lactic Acid Lvl (test code = Lactic 1.9 0.5-2.2 N Acid Lvl) [facility]SlnyppoUjxhuphrgvqg0591-64-82 17:40:00 Test Item Value Reference Range Interpretation Comments Culture: Blood (test code = Culture: Blood) [facility] HospitalMgumihnMyjalzfcammn0074-19-02 17:40:00 Test Item Value Reference Range Interpretation Comments Culture: Blood (test code = Culture: Blood) [facility]NnzffncDJMEXBAFED0651-96-57 17:00:00 Test Item Value Reference Range Interpretation Comments UA Leuk Est (test Negative (09/30/2011 N code = UA Leuk Est) 11:00:00) [facility] HospitalFpfbmjxRZESLWIXFN2471-97-08 17:00:00 Test Item Value Reference Range Interpretation Comments UA Nitrite (test code Negative (09/30/2011 N = UA Nitrite) 11:00:00) [facility] HospitalVxovdxpGITVTNGJJA5346-15-92 17:00:00 Test Item Value Reference Range Interpretation Comments UA Glucose (test code Negative mg/dL N = UA Glucose) (09/30/2011 11:00:00) [facility] HospitalPgbpjyeIQMJBMOBOC1838-44-36 17:00:00 Test Item Value Reference Range Interpretation Comments UA Ketones (test code Negative mg/dL = UA Ketones) *NA*(09/30/2011 11:00:00) [facility] HospitalLwtcverLTDEACZONI7632-90-22 17:00:00 Test Item Value Reference Range Interpretation Comments UA Urobilinogen (test code = UA 0.2 0.1-1.0 N Urobilinogen) [facility] HospitalCrbiqgmRHSSVDLAGZ7476-30-96 17:00:00 Test Item Value Reference Range Interpretation Comments UA Bili (test code = Negative *NA*(09/30/2011 UA Bili) 11:00:00) [facility] HospitalQljameoVUVCUJIFZA3319-11-82 17:00:00 Test Item Value Reference Range Interpretation Comments UA Blood (test code = Negative (09/30/2011 N UA Blood) 11:00:00) [facility]XHFZ1080[facility] 17:00:00 Test Item Value Reference Range Interpretation Comments UA Turbidity (test code = Clear (09/30/2011 N UA Turbidity) 11:00:00) [facility]PaipvhkIGHRSQKKMG9183-75-32 17:00:00 Test Item Value Reference Range Interpretation Comments UA Spec Grav (test code = UA Spec 1.015 1 N Grav) [facility]andVkcpzagZBPYUWGJPJ6300-78-45 17:00:00 Test Item Value Reference Range Interpretation Comments UA Color (test code = Yellow *NA*(09/30/2011 UA Color) 11:00:00) [facility]andFpjhnpsJMUHHEDEGQ3948-01-43 17:00:00 Test Item Value Reference Range Interpretation Comments UA pH (test code = UA pH) 7.5 1 5.0-8.0 N [facility]andSyekitzWRPMDCUYRV9202-09-86 17:00:00 Test Item Value Reference Range Interpretation Comments UA Protein (test code Negative mg/dL N = UA Protein) (09/30/2011 11:00:00) [facility]andWvlhbegRSDFJLBJAK2884-40-59 17:00:00 Test Item Value Reference Range Interpretation Comments UA RBC (test 0-2 /HPF See_Comment N [Automated [place]] code = UA RBC) (09/30/2011 The system wh ich 11:00:00) generated this result transmitted ref erence range: <=2. The reference range was not used to int erpret this result as normal/abnormal . [facility]ToeyqisTZAOPJOOXW6393-73-29 17:00:00 Test Item Value Reference Range Interpretation Comments Micro? (test code = Performed (09/30/2011 N Micro?) 11:00:00) [facility]andMjgfyqrTGAPXCXFQD1579-64-27 17:00:00 Test Item Value Reference Range Interpretation Comments UA Sq Epi (test code = Rare /LPF (09/30/2011 N UA Sq Epi) 11:00:00) [facility]MmopviqASQUKLBNKO3960-98-13 17:00:00 Test Item Value Reference Range Interpretation Comments UA Leuk Est (test Negative (09/30/2011 N code = UA Leuk Est) 11:00:00) [facility] HospitalRvfivteTHYCOHDGDW2506-54-27 17:00:00 Test Item Value Reference Range Interpretation Comments UA Nitrite (test code Negative (09/30/2011 N = UA Nitrite) 11:00:00) [facility] HospitalJjlanggSNNHQPNDXF5817-44-73 17:00:00 Test Item Value Reference Range Interpretation Comments UA Glucose (test code Negative mg/dL N = UA Glucose) (09/30/2011 11:00:00) [facility] HospitalQbcddlcCHCHZHVLKV3548-43-36 17:00:00 Test Item Value Reference Range Interpretation Comments UA Ketones (test code Negative mg/dL = UA Ketones) *NA*(09/30/2011 11:00:00) [facility] HospitalXdupxluRMPMZAVSDK9291-34-12 17:00:00 Test Item Value Reference Range Interpretation Comments UA Urobilinogen (test code = UA 0.2 0.1-1.0 N Urobilinogen) [facility] HospitalYfydkfoUMMKSNPEZY6353-47-81 17:00:00 Test Item Value Reference Range Interpretation Comments UA Bili (test code = Negative *NA*(09/30/2011 UA Bili) 11:00:00) [facility] HospitalRghrypfIBZIVQFJAF7058-58-61 17:00:00 Test Item Value Reference Range Interpretation Comments UA Blood (test code = Negative (09/30/2011 N UA Blood) 11:00:00) [facility] HospitalWpjwvfhHVFQHIICHM3852-46-29 17:00:00 Test Item Value Reference Range Interpretation Comments UA Turbidity (test code = Clear (09/30/2011 N UA Turbidity) 11:00:00) [facility] HospitalPskqxyrYPPBMRFECK1784-38-45 17:00:00 Test Item Value Reference Range Interpretation Comments UA Spec Grav (test code = UA Spec 1.015 1 N Grav) [facility] HospitalNwbuevoUHHVGZDCQW9824-53-05 17:00:00 Test Item Value Reference Range Interpretation Comments UA Color (test code = Yellow *NA*(09/30/2011 UA Color) 11:00:00) [facility] HospitalBysmetvEDFDANYWGN4885-14-57 17:00:00 Test Item Value Reference Range Interpretation Comments UA pH (test code = UA pH) 7.5 1 5.0-8.0 N [facility] HospitalNrivtkmYEXJKAFFJZ2941-28-19 17:00:00 Test Item Value Reference Range Interpretation Comments UA Protein (test code Negative mg/dL N = UA Protein) (09/30/2011 11:00:00) [facility]QyshzouWDLHSDBGCJ2985-81-80 17:00:00 Test Item Value Reference Range Interpretation Comments UA RBC (test 0-2 /HPF See_Comment N [Automated [place]] code = UA RBC) (09/30/2011 The system ich 11:00:00) generated this result transmitted ref erence range: <=2. The reference range was not used to int erpret this result as normal/abnormal . [facility]YmcedcfAWMCWGFBMN3944-86-55 17:00:00 Test Item Value Reference Range Interpretation Comments Micro? (test code = Performed (09/30/2011 N Micro?) 11:00:00) [facility]andJdtnbfwBHKQSCXOAB1552-42-62 17:00:00 Test Item Value Reference Range Interpretation Comments UA Sq Epi (test code = Rare /LPF (09/30/2011 N UA Sq Epi) 11:00:00) [facility] HospitalHuwxfohEIDBVFUBC1531-63-54 16:40:00 Test Item Value Reference Range Interpretation Comments Lipase Lvl (test code = Lipase Lvl) 337 73-393 N [facility] HospitalErgiczyLYKDHTHAA9895-43-89 16:40:00 Test Item Value Reference Range Interpretation Comments Lactic Acid Lvl (test code = Lactic 2.7 0.5-2.2 H Acid Lvl) [facility] HospitalZhvmtnxGKWCVWAEU7850-53-22 16:40:00 Test Item Value Reference Range Interpretation Comments Phosphorus (test code = Phosphorus) 3.2 2.5-4.5 N [facility] HospitalGtpkiyaIFRDLSHEK4816-44-93 16:40:00 Test Item Value Reference Range Interpretation Comments Magnesium Lvl (test code = Magnesium 1.5 1.8-2.4 L Lvl) [facility] HospitalKvxxefmRIPOHHVYJ2683-64-82 16:40:00 Test Item Value Reference Range Interpretation Comments AGAP (test code = AGAP) 13.2 10.0-20.0 N [facility] HospitalUwyuinfNUHYEJIXB0523-60-07 16:40:00 Test Item Value Reference Range Interpretation Comments Chloride Lvl (test code = Chloride Lvl) 99 95-109 N [facility] HospitalAhtgpzjMECDGNXHG6254-98-71 16:40:00 Test Item Value Reference Range Interpretation Comments CO2 (test code = CO2) 29 24-32 N [facility] HospitalErxlmhgIXFSIXJEW6661-61-42 16:40:00 Test Item Value Reference Range Interpretation Comments Potassium Lvl (test code = Potassium 4.2 3.5-5.1 N Lvl) [facility] HospitalFevanvkKEIVSODMD8857-91-95 16:40:00 Test Item Value Reference Range Interpretation Comments Calcium Lvl (test code = Calcium Lvl) 9.0 8.5-10.5 N [facility] HospitalJtejsmrSJIALYGRH1509-16-35 16:40:00 Test Item Value Reference Range Interpretation Comments Glucose Lvl (test code = Glucose Lvl) 132 [facility] HospitalJudylvdNQKWFYVCO7791-51-30 16:40:00 Test Item Value Reference Range Interpretation Comments Sodium Lvl (test code = Sodium Lvl) 137 135-145 N [facility] HospitalTawjecwBRMEFBSSK2860-42-57 16:40:00 Test Item Value Reference Range Interpretation Comments BUN (test code = BUN) 13 7-22 N [facility] HospitalElksmoqHRPXDTLMX7130-02-03 16:40:00 Test Item Value Reference Range Interpretation Comments Creatinine Lvl (test code = Creatinine 1.0 0.5-1.4 N Lvl) [facility] HospitalXpxvwuvDPWDFFSJM2556-86-42 16:40:00 Test Item Value Reference Range Interpretation Comments Bili Indirect (test 0.4 See_Comment N [Automa quoc message] The code = Bili Indirect) system which generated this result tra nsmitted reference range : <=1.0. The reference r ana luisa was not used to int erpret this result as normal/abnormal . [facility] HospitalMcuxibuGUGBCOPDU7807-19-80 16:40:00 Test Item Value Reference Range Interpretation Comments A/G Ratio (test code = A/G Ratio) 1.1 0.7-1.6 N [facility] HospitalRtemutsSIMIOJLZN7619-12-32 16:40:00 Test Item Value Reference Range Interpretation Comments Globulin (test code = Globulin) 3.4 2.0-4.0 N [facility] HospitalZlnlskyHLRCGJINA2888-36-26 16:40:00 Test Item Value Reference Range Interpretation Comments Bili Total (test code = Bili Total) 0.8 0.2-1.3 N [facility] HospitalJcqnbadIVTYPFDEK8183-55-52 16:40:00 Test Item Value Reference Range Interpretation Comments Alk Phos (test code = Alk Phos) 132 39-136 N [facility] HospitalHrucihvIJQFUCYEZ0450-51-58 16:40:00 Test Item Value Reference Range Interpretation Comments ALT (test code = ALT) 37 See_Comment N [Auto mated message] The system which ge nerated this result transmit quoc reference range : <=65. The reference range was not used to interpr et this result as marco l/abnormal. [facility] HospitalFbbvaacPKTZHGFRE0044-04-22 16:40:00 Test Item Value Reference Range Interpretation Comments Albumin Lvl (test code = Albumin Lvl) 3.7 3.5-5.0 N [facility] HospitalBhzuzgoEOKKMMYWO6371-81-60 16:40:00 Test Item Value Reference Range Interpretation Comments Total Protein (test code = Total 7.1 6.4-8.4 N Protein) [facility] HospitalJemevmsRUAFHFCUH9850-85-51 16:40:00 Test Item Value Reference Range Interpretation Comments AST (test code = AST) 26 See_Comment N [Auto mated message] The system which ge nerated this result transmit quoc reference range : <=37. The reference range was not used to interpr et this result as marco l/abnormal. [facility] HospitalFyuztrmGCBHCAPOF4286-20-78 16:40:00 Test Item Value Reference Range Interpretation Comments Bili Direct (test code 0.4 See_Comment H [Aut omated message] The = Bili Direct) system which generated this result tra nsmitted reference range : <=0.3. The reference r ana luisa was not used to int erpret this result as marco l/abnormal. [facility] HospitalGjrbfipKNLNJXOHZQ0649-97-81 16:40:00 Test Item Value Reference Range Interpretation Comments Basophils # (test code 0.0 See_Comment N [Aut omated message] The = Basophils #) system which generated this result tra nsmitted reference range : <=0.2. The reference r ana luisa was not used to int erpret this result as normal/abnormal . [facility] HospitalKcutgcmKPRPBDFSJI9728-54-39 16:40:00 Test Item Value Reference Range Interpretation Comments Basophils (test code = 0.0 See_Comment N [Aut omated message] The Basophils) system which ge nerated this result tra nsmitted reference range : <=1.0. The reference r ana luisa was not used to int erpret this result as normal/abnormal . [facility] HospitalMpiiqjfMHLMEUNEGL7771-50-34 16:40:00 Test Item Value Reference Range Interpretation Comments Eosinophils (test code = 0.5 See_Comment N [A utomated message] The Eosinophils) system which ge nerated this result tra nsmitted reference range : <=4.0. The reference r ana luisa was not used to int erpret this result as normal/abnormal . [facility] HospitalIpufmqhOMMBXAGGKG0582-56-69 16:40:00 Test Item Value Reference Range Interpretation Comments Monocytes # (test code 0.6 See_Comment N [Aut omated message] The = Monocytes #) system which generated this result tra nsmitted reference range : <=0.8. The reference r ana luisa was not used to int erpret this result as normal/abnormal . [facility] HospitalXuhgrswQRMYACMMWO0187-70-84 16:40:00 Test Item Value Reference Range Interpretation Comments Monocytes (test code = Monocytes) 7.9 2.0-12.0 N [facility] HospitalPubrwcjQRVSLDQVHT4407-96-25 16:40:00 Test Item Value Reference Range Interpretation Comments Lymphocytes (test code = Lymphocytes) 5.1 20.0-40.0 L [facility] HospitalJwrzdgcRTEJAUVKYQ3867-85-48 16:40:00 Test Item Value Reference Range Interpretation Comments Eosinophils # (test code 0.0 See_Comment N [A utomated message] The = Eosinophils #) system whic h generated this result tra nsmitted reference range : <=0.5. The reference r ana luisa was not used to int erpret this result as normal/abnormal . [facility] HospitalHcoexpeAYBLJOEVRX8563-88-18 16:40:00 Test Item Value Reference Range Interpretation Comments Lymphocytes # (test code = Lymphocytes 0.4 1.0-5.5 L #) [facility] HospitalKnkigibEGPBRSJBXO3645-65-65 16:40:00 Test Item Value Reference Range Interpretation Comments Segs-Bands # (test code = Segs-Bands #) 7.0 1.5-8.1 N [facility] HospitalJsashwuLBIOLDEOQU5149-43-77 16:40:00 Test Item Value Reference Range Interpretation Comments Plt Morph (test code = Normal (09/30/2011 N Plt Morph) 10:40:00) [facility] HospitalNvlaopcDVKSRLMRZH8087-74-08 16:40:00 Test Item Value Reference Range Interpretation Comments Segs (test code = Segs) 86.5 45.0-75.0 H [facility] HospitalXokovebYELIEWAXER5553-18-56 16:40:00 Test Item Value Reference Range Interpretation Comments RBC Morph (test code = Normal (09/30/2011 N RBC Morph) 10:40:00) [facility] HospitalXjgmzzgXLSVSBYULF0689-97-70 16:40:00 Test Item Value Reference Range Interpretation Comments PTT (test code = PTT) 27.8 s 22.9-35.8 N [facility] HospitalFtxhzczYRQYUTYDPK4828-51-35 16:40:00 Test Item Value Reference Range Interpretation Comments PT (test code = PT) 12.3 s 12.0-14.7 N [facility] HospitalAxsqujkANXVWVORCM1943-74-85 16:40:00 Test Item Value Reference Range Interpretation Comments INR (test code = INR) 0.91 0.85-1.17 N [facility] HospitalMzparfdOXEBRAMEQN2764-67-00 16:40:00 Test Item Value Reference Range Interpretation Comments MPV (test code = MPV) 7.3 7.4-10.4 L [facility] HospitalAlnrqtfCTUSLXOVTD3603-67-37 16:40:00 Test Item Value Reference Range Interpretation Comments RDW (test code = RDW) 12.3 11.5-14.5 N [facility] HospitalNipvahzBZCBWCYLMH3918-25-51 16:40:00 Test Item Value Reference Range Interpretation Comments Platelet (test code = Platelet) 256 133-450 N [facility] HospitalWkstleaLJXHYGYIJE4648-65-00 16:40:00 Test Item Value Reference Range Interpretation Comments MCHC (test code = MCHC) 34.3 32.0-36.0 N [facility] HospitalObiugfiMVTSHYAYGA1743-51-69 16:40:00 Test Item Value Reference Range Interpretation Comments MCV (test code = MCV) 91.0 80.0-94.0 N [facility] HospitalAmkceypVTQNZNYNDG7695-81-63 16:40:00 Test Item Value Reference Range Interpretation Comments MCH (test code = MCH) 31.2 pg 27.0-31.0 H [facility] HospitalBplootfKNNACTRYBX6042-36-48 16:40:00 Test Item Value Reference Range Interpretation Comments Hgb (test code = Hgb) 14.0 14.0-18.0 N [facility] HospitalNjelpqkLSMLKITJCL2667-24-19 16:40:00 Test Item Value Reference Range Interpretation Comments Hct (test code = Hct) 40.9 42.0-54.0 L [facility] HospitalEqdennqUHCOHARYKF2035-63-45 16:40:00 Test Item Value Reference Range Interpretation Comments WBC (test code = WBC) 8.0 3.7-10.4 N [facility] HospitalGsnvywuPPDLFZDWKK9946-85-21 16:40:00 Test Item Value Reference Range Interpretation Comments RBC (test code = RBC) 4.50 4.70-6.10 L [facility] HospitalHcfvpioMTQCOVNDT9450-15-66 16:40:00 Test Item Value Reference Range Interpretation Comments Lipase Lvl (test code = Lipase Lvl) 337 73-393 N [facility] HospitalXaaghiwDQHSWQPKS8140-69-51 16:40:00 Test Item Value Reference Range Interpretation Comments Lactic Acid Lvl (test code = Lactic 2.7 0.5-2.2 H Acid Lvl) [facility] HospitalOigjggrTPJUOXOIH0342-48-40 16:40:00 Test Item Value Reference Range Interpretation Comments Phosphorus (test code = Phosphorus) 3.2 2.5-4.5 N [facility] HospitalWwkdekaWVFGGTHEX6526-62-35 16:40:00 Test Item Value Reference Range Interpretation Comments Magnesium Lvl (test code = Magnesium 1.5 1.8-2.4 L Lvl) [facility] HospitalFwiihhvOYXSBVBLY4625-08-45 16:40:00 Test Item Value Reference Range Interpretation Comments AGAP (test code = AGAP) 13.2 10.0-20.0 N [facility] HospitalOewvvxxMJTGWAXTC6432-88-00 16:40:00 Test Item Value Reference Range Interpretation Comments Chloride Lvl (test code = Chloride Lvl) 99 95-109 N [facility] HospitalBbqrondTHVAILUPB5464-65-21 16:40:00 Test Item Value Reference Range Interpretation Comments CO2 (test code = CO2) 29 24-32 N [facility] HospitalDyrmsguYKOPOHDHB8009-16-53 16:40:00 Test Item Value Reference Range Interpretation Comments Potassium Lvl (test code = Potassium 4.2 3.5-5.1 N Lvl) [facility] HospitalHaugcstPTVNUFRUJ3304-94-41 16:40:00 Test Item Value Reference Range Interpretation Comments Calcium Lvl (test code = Calcium Lvl) 9.0 8.5-10.5 N [facility] HospitalTmfozxvBQBMIBWEI7446-74-17 16:40:00 Test Item Value Reference Range Interpretation Comments Glucose Lvl (test code = Glucose Lvl) 132 [facility] HospitalXpzewrwBAHXRSSPZ3874-26-48 16:40:00 Test Item Value Reference Range Interpretation Comments Sodium Lvl (test code = Sodium Lvl) 137 135-145 N [facility] HospitalDeirjpiCVLTOPFGH0469-15-09 16:40:00 Test Item Value Reference Range Interpretation Comments BUN (test code = BUN) 13 7-22 N [facility] HospitalEzqdxfcYTEVDAHOI3656-89-40 16:40:00 Test Item Value Reference Range Interpretation Comments Creatinine Lvl (test code = Creatinine 1.0 0.5-1.4 N Lvl) [facility] HospitalSakagoeTYFWBWPJB2259-86-40 16:40:00 Test Item Value Reference Range Interpretation Comments Bili Indirect (test 0.4 See_Comment N [Automa quoc message] The code = Bili Indirect) system which generated this result tra nsmitted reference range : <=1.0. The reference r ana luisa was not used to int erpret this result as normal/abnormal . [facility] HospitalHavhxxfOHIFYHCIF3271-76-05 16:40:00 Test Item Value Reference Range Interpretation Comments A/G Ratio (test code = A/G Ratio) 1.1 0.7-1.6 N [facility] HospitalQsgykdgXVEEXKNFN2947-30-90 16:40:00 Test Item Value Reference Range Interpretation Comments Globulin (test code = Globulin) 3.4 2.0-4.0 N [facility] HospitalWuknecmJCOJWXHJS6144-78-86 16:40:00 Test Item Value Reference Range Interpretation Comments Bili Total (test code = Bili Total) 0.8 0.2-1.3 N [facility] HospitalBggizsfJVYAABTVC1004-54-15 16:40:00 Test Item Value Reference Range Interpretation Comments Alk Phos (test code = Alk Phos) 132 39-136 N [facility] HospitalBjdacgzLOEBDPNPL4809-46-34 16:40:00 Test Item Value Reference Range Interpretation Comments ALT (test code = ALT) 37 See_Comment N [Auto mated message] The system which ge nerated this result transmit quoc reference range : <=65. The reference range was not used to interpr et this result as marco l/abnormal. [facility] HospitalHdhmbrhMFMSAKGRY9502-50-95 16:40:00 Test Item Value Reference Range Interpretation Comments Albumin Lvl (test code = Albumin Lvl) 3.7 3.5-5.0 N [facility] HospitalBfwlrtdJNUIVWEYH1952-95-56 16:40:00 Test Item Value Reference Range Interpretation Comments Total Protein (test code = Total 7.1 6.4-8.4 N Protein) [facility] HospitalIlbodnePVACZDTYI3193-93-63 16:40:00 Test Item Value Reference Range Interpretation Comments AST (test code = AST) 26 See_Comment N [Auto mated message] The system which ge nerated this result transmit quoc reference range : <=37. The reference range was not used to interpr et this result as marco l/abnormal. [facility] HospitalJlxtnmjMQZWQYMKD5455-42-47 16:40:00 Test Item Value Reference Range Interpretation Comments Bili Direct (test code 0.4 See_Comment H [Aut omated message] The = Bili Direct) system which generated this result tra nsmitted reference range : <=0.3. The reference r ana luisa was not used to int erpret this result as marco l/abnormal. [facility] HospitalXwycckxFPLYYKODLJ0735-97-31 16:40:00 Test Item Value Reference Range Interpretation Comments Basophils # (test code 0.0 See_Comment N [Aut omated message] The = Basophils #) system which generated this result tra nsmitted reference range : <=0.2. The reference r ana luisa was not used to int erpret this result as normal/abnormal . [facility] HospitalLfbrxhoKALFQEOSAO5388-72-96 16:40:00 Test Item Value Reference Range Interpretation Comments Basophils (test code = 0.0 See_Comment N [Aut omated message] The Basophils) system which ge nerated this result tra nsmitted reference range : <=1.0. The reference r ana luisa was not used to int erpret this result as normal/abnormal . [facility] HospitalPxfnjrwJCCRHHJYDL6471-48-73 16:40:00 Test Item Value Reference Range Interpretation Comments Eosinophils (test code = 0.5 See_Comment N [A utomated message] The Eosinophils) system which ge nerated this result tra nsmitted reference range : <=4.0. The reference r ana luisa was not used to int erpret this result as normal/abnormal . [facility] HospitalVpngbldTSQMHIYRLB5636-44-86 16:40:00 Test Item Value Reference Range Interpretation Comments Monocytes # (test code 0.6 See_Comment N [Aut omated message] The = Monocytes #) system which generated this result tra nsmitted reference range : <=0.8. The reference r ana luisa was not used to int erpret this result as normal/abnormal . [facility]UeazcnmMRKMTRGGBN0934-25-97 16:40:00 Test Item Value Reference Range Interpretation Comments Monocytes (test code = Monocytes) 7.9 2.0-12.0 N [facility] HospitalKxsjlypVYINMSGYYA7916-44-90 16:40:00 Test Item Value Reference Range Interpretation Comments Lymphocytes (test code = Lymphocytes) 5.1 20.0-40.0 L [facility] HospitalNzggjmgWAIXEYWZCH0285-21-14 16:40:00 Test Item Value Reference Range Interpretation Comments Eosinophils # (test code 0.0 See_Comment N [A utomated message] The = Eosinophils #) system whic h generated this result tra nsmitted reference range : <=0.5. The reference r ana luisa was not used to int erpret this result as normal/abnormal . [facility] HospitalOtwkeaqOIRLFGVEAC7330-02-58 16:40:00 Test Item Value Reference Range Interpretation Comments Lymphocytes # (test code = Lymphocytes 0.4 1.0-5.5 L #) [facility] HospitalCbqqtwmMPVGDHJARQ2392-32-47 16:40:00 Test Item Value Reference Range Interpretation Comments Segs-Bands # (test code = Segs-Bands #) 7.0 1.5-8.1 N [facility] HospitalHyqoxtxSSVSMSCLIA5527-23-45 16:40:00 Test Item Value Reference Range Interpretation Comments Plt Morph (test code = Normal (09/30/2011 N Plt Morph) 10:40:00) [facility] HospitalKijhwvcMZOJAOROEZ7335-68-66 16:40:00 Test Item Value Reference Range Interpretation Comments Segs (test code = Segs) 86.5 45.0-75.0 H [facility] HospitalCkqlbioCXGOQSRECN4640-26-99 16:40:00 Test Item Value Reference Range Interpretation Comments RBC Morph (test code = Normal (09/30/2011 N RBC Morph) 10:40:00) [facility] HospitalXbuyvgnRBQXAOVNKT4798-86-48 16:40:00 Test Item Value Reference Range Interpretation Comments PTT (test code = PTT) 27.8 s 22.9-35.8 N [facility] HospitalTmjixlpVAPSFBZLDI6867-64-15 16:40:00 Test Item Value Reference Range Interpretation Comments PT (test code = PT) 12.3 s 12.0-14.7 N [facility] HospitalWfyrgjfOMYEUZKTDE9994-79-92 16:40:00 Test Item Value Reference Range Interpretation Comments INR (test code = INR) 0.91 0.85-1.17 N [facility] HospitalVocjnetTDXZUHWZFV5247-90-81 16:40:00 Test Item Value Reference Range Interpretation Comments MPV (test code = MPV) 7.3 7.4-10.4 L [facility] HospitalDygatlmBSLTAPACOF7986-35-59 16:40:00 Test Item Value Reference Range Interpretation Comments RDW (test code = RDW) 12.3 11.5-14.5 N [facility] HospitalKwwibuiXMOWFCXMYB0897-73-25 16:40:00 Test Item Value Reference Range Interpretation Comments Platelet (test code = Platelet) 256 133-450 N [facility] HospitalUygmsnzYMHGHUKNGK9456-39-48 16:40:00 Test Item Value Reference Range Interpretation Comments MCHC (test code = MCHC) 34.3 32.0-36.0 N [facility] HospitalOagjdraEIHBVQSGFL6091-81-11 16:40:00 Test Item Value Reference Range Interpretation Comments MCV (test code = MCV) 91.0 80.0-94.0 N [facility] HospitalFkzqzbnLOJFFQQPNC8234-87-77 16:40:00 Test Item Value Reference Range Interpretation Comments MCH (test code = MCH) 31.2 pg 27.0-31.0 H [facility] HospitalMykofpmKGCUJNAQZE7049-97-03 16:40:00 Test Item Value Reference Range Interpretation Comments Hgb (test code = Hgb) 14.0 14.0-18.0 N [facility] HospitalLfadkccXTEIEJDJRE2539-85-34 16:40:00 Test Item Value Reference Range Interpretation Comments Hct (test code = Hct) 40.9 42.0-54.0 L [facility] HospitalYaadwseXTRBOSYEGP6250-59-40 16:40:00 Test Item Value Reference Range Interpretation Comments WBC (test code = WBC) 8.0 3.7-10.4 N [facility] HospitalLmjdtumWUKXTYWLIP3409-22-57 16:40:00 Test Item Value Reference Range Interpretation Comments RBC (test code = RBC) 4.50 4.70-6.10 L [facility]YwmclbgWspnpffputzf1173-34-64 16:37:00 Test Item Value Reference Range Interpretation Comments Culture: Blood (test code = Culture: Blood) [facility]WojxdpfFlqrvuzixuxd6087-21-29 16:37:00 Test Item Value Reference Range Interpretation Comments Culture: Blood (test code = Culture: Blood) [facility]wcpbvzGQHWXZOPWY3571-11-65 15:56:00 Test Item Value Reference Range Interpretation Comments CDC-HIV 1/2 Ab (test Negative *NA*(09/30/2011 code = CDC-HIV 1/2 09:56:00) Ab) [facility] CenterTfgirqbUTEENSKDVN6607-95-84 15:56:00 Test Item Value Reference Range Interpretation Comments CDC-HIV 1/2 Ab (test Negative *NA*(09/30/2011 code = CDC-HIV 1/2 09:56:00) Ab) [facility] GLUCOSE ZYQXNQY0814-29-49 14:13:00 Test Item Value Reference Range Interpretation Comments Comment1 (test code = Comment1) Notifprudence CASTAÑEDA [facility] GLUCOSE NYIZGMJ7363-87-59 14:13:00 Test Item Value Reference Range Interpretation Comments Gluc POC Lifscn (test code = Gluc POC 131 65-110 H Lifscn) [facility] GLUCOSE HILEEDY7142-09-26 14:13:00 Test Item Value Reference Range Interpretation Comments Comment1 (test code = Comment1) Notifprudence CASTAÑEDA [facility] GLUCOSE QDZERRO0652-07-03 14:13:00 Test Item Value Reference Range Interpretation Comments Gluc POC Lifscn (test code = Gluc POC 131 65-110 H Lifscn) [facility]AfgxjpcILOUXOAYJ9354-43-37 09:30:00 Test Item Value Reference Range Interpretation Comments Lipase Lvl (test code = Lipase Lvl) 474 73-393 H [facility] HospitalCvkmuqpCFQSWBLIB9178-61-08 09:30:00 Test Item Value Reference Range Interpretation Comments Lipase Lvl (test code = Lipase Lvl) 474 73-393 H [facility] GLUCOSE ECYNOCS4225-46-88 04:30:00 Test Item Value Reference Range Interpretation Comments Comment1 (test code = Comment1) Notif[employer] [place]ÑEDA [facility] GLUCOSE RVXOMYU1732-00-21 04:30:00 Test Item Value Reference Range Interpretation Comments Gluc POC Lifscn (test code = Gluc POC 206 65-110 H Lifscn) [facility] GLUCOSE VGLMEFI3974-59-62 04:30:00 Test Item Value Reference Range Interpretation Comments Comment1 (test code = Comment1) Notify RN/ [facility] GLUCOSE FQTEPRQ7462-79-92 04:30:00 Test Item Value Reference Range Interpretation Comments Gluc POC Lifscn (test code = Gluc POC 206 65-110 H Lifscn) [facility] GLUCOSE NMAOOGT2584-25-48 22:58:00 Test Item Value Reference Range Interpretation Comments Comment1 (test code = Comment1) Notify RN/ [facility] GLUCOSE RURMTGJ3208-64-68 22:58:00 Test Item Value Reference Range Interpretation Comments Gluc POC Lifscn (test code = Gluc POC 187 65-110 H Lifscn) [facility] GLUCOSE RYQXXGJ3576-58-33 22:58:00 Test Item Value Reference Range Interpretation Comments Comment1 (test code = Comment1) Notify RN/ [facility] GLUCOSE DQFGLRX1592-42-11 22:58:00 Test Item Value Reference Range Interpretation Comments Gluc POC Lifscn (test code = Gluc POC 187 65-110 H Lifscn) [facility] HospitalYezqyuoODTIMHFQM6524-40-78 10:56:00 Test Item Value Reference Range Interpretation Comments Troponin-T (test code no gt See_Comment N [Auto mated message] The = Troponin-T) system which g enerated this result transmit quoc reference range : <=0.100. The reference r ana luisa was not used to interpr et this result as marco l/abnormal. [facility] HospitalWrhtufxBIASEUKJG7521-73-72 10:56:00 Test Item Value Reference Range Interpretation Comments Total CK (test code = Total CK) 34 12-191 N [facility] HospitalCdueckpNVWEOZDXX6497-83-34 10:56:00 Test Item Value Reference Range Interpretation Comments Amylase Lvl (test code = Amylase Lvl) 139 25-115 H [facility] HospitalNjpfbgjKBDAPTEGX5055-12-03 10:56:00 Test Item Value Reference Range Interpretation Comments CHD Risk (test code = CHD Risk) 5.79 4.00-7.30 N [facility] HospitalYfqajkbLBZPQFQMU6948-69-40 10:56:00 Test Item Value Reference Range Interpretation Comments LDL (test code = LDL) 91 See_Comment N [Auto mated message] The system which ge nerated this result transmit quoc reference range : <=129. The reference range was not used to interpr et this result as marco l/abnormal. [facility] CenterLvxazgmVHMRNKPNJ7766-68-28 10:56:00 Test Item Value Reference Range Interpretation Comments HDL (test code = HDL) 24 L [facility] HospitalVfzlhpcGOWWNJEGQ0181-70-74 10:56:00 Test Item Value Reference Range Interpretation Comments Trig (test code = 120 See_Comment N [Automate d message] The Trig) system which ge nerated this result transmit quoc reference range : <=200. The reference range was not used to interpr et this result as marco l/abnormal. [facility] CenterKvmnqwpUCNGUHNVE8801-97-82 10:56:00 Test Item Value Reference Range Interpretation Comments Chol (test code = Chol) 139 120-200 N [facility] HospitalGdbclpnADRGSCTTP0181-86-76 10:56:00 Test Item Value Reference Range Interpretation Comments Lipase Lvl (test code = Lipase Lvl) 447 73-393 H [facility] CenterAderjczJRRJETNCM7651-13-49 10:56:00 Test Item Value Reference Range Interpretation Comments ALT (test code = ALT) 95 See_Comment H [Auto mated message] The system which ge nerated this result transmit quoc reference range : <=65. The reference range was not used to interpr et this result as marco l/abnormal. [facility] CenterFdabogeTAJQELDAN3054-59-48 10:56:00 Test Item Value Reference Range Interpretation Comments Albumin Lvl (test code = Albumin Lvl) 3.2 3.5-5.0 L [facility]DV[facility]JMGD0567-11-42 10:56:00 Test Item Value Reference Range Interpretation Comments Bili Direct (test code 0.8 See_Comment H [Aut omated message] The = Bili Direct) system which generated this result tra nsmitted reference range : <=0.3. The reference r ana luisa was not used to int erpret this result as marco l/abnormal. [facility] CenterPtusxdyZKRWIPGST7675-33-58 10:56:00 Test Item Value Reference Range Interpretation Comments Alk Phos (test code = Alk Phos) 180 39-136 H [facility] CenterVruyrjtDWLAOPAQD3132-58-88 10:56:00 Test Item Value Reference Range Interpretation Comments Globulin (test code = Globulin) 3.0 2.0-4.0 N [facility] CenterMegwdnuERTPJECBH2674-18-40 10:56:00 Test Item Value Reference Range Interpretation Comments AST (test code = AST) 125 See_Comment H [Auto mated message] The system which ge nerated this result transmit quoc reference range : <=37. The reference range was not used to interpr et this result as marco l/abnormal. [facility] HospitalEhswxkfHVSNRAFXX6964-93-85 10:56:00 Test Item Value Reference Range Interpretation Comments A/G Ratio (test code = A/G Ratio) 1.1 0.7-1.6 N [facility] HospitalSupitqlUQEVMAJPD5265-87-48 10:56:00 Test Item Value Reference Range Interpretation Comments Bili Total (test code = Bili Total) 1.2 0.2-1.3 N [facility] HospitalHqkpoxmJXLMMFBZM1805-33-63 10:56:00 Test Item Value Reference Range Interpretation Comments Total Protein (test code = Total 6.2 6.4-8.4 L Protein) [facility] HospitalEylojnxBTLXENMPJ3354-15-00 10:56:00 Test Item Value Reference Range Interpretation Comments Bili Indirect (test 0.4 See_Comment N [Automa quoc message] The code = Bili Indirect) system which generated this result tra nsmitted reference range : <=1.0. The reference r ana luisa was not used to int erpret this result as normal/abnormal . [facility] HospitalNlhdairASSMGBOYQ6659-41-36 10:56:00 Test Item Value Reference Range Interpretation Comments LDH (test code = LDH) 167 98-192 N [facility] HospitalXrsfkdhHHTHRJIKI0133-59-72 10:56:00 Test Item Value Reference Range Interpretation Comments UIBC (test code = UIBC) 158 110-370 N [facility] HospitalPfsrgktEBNMCYXLW1212-46-03 10:56:00 Test Item Value Reference Range Interpretation Comments % Satur Fe (test code = % Satur Fe) 38 12-57 N [facility] HospitalQbvqutyRCNZLQCJN7442-80-95 10:56:00 Test Item Value Reference Range Interpretation Comments TIBC (test code = TIBC) 256 228-428 N [facility] HospitalKoairirIPBVXGZDP2840-80-58 10:56:00 Test Item Value Reference Range Interpretation Comments Iron (test code = Iron) 98 45-160 N [facility] HospitalMxzdlwoXKZDSUVGE9450-37-84 10:56:00 Test Item Value Reference Range Interpretation Comments Ca Ion (test code = Ca Ion) 1.13 1.16-1.30 L [facility] HospitalLcpwgurMTGOILHNY2121-37-99 10:56:00 Test Item Value Reference Range Interpretation Comments Ca Norm (test code = Ca Norm) 1.13 1.16-1.30 L [facility] HospitalLkxrozcTURBDWJGR3807-93-39 10:56:00 Test Item Value Reference Range Interpretation Comments Ca Ion mgdL (test code = Ca Ion mgdL) 4.52 4.65-5.20 L [facility] HospitalYackzhdSFVXZYHEQ4419-49-05 10:56:00 Test Item Value Reference Range Interpretation Comments Ca Norm mgdL (test code = Ca Norm mgdL) 4.52 4.65-5.20 L [facility] HospitalWjkyrxuOJVEWPEKS9619-94-89 10:56:00 Test Item Value Reference Range Interpretation Comments AGAP (test code = AGAP) 15.6 10.0-20.0 N [facility] HospitalWtztlnvZVJUJGETP3323-37-52 10:56:00 Test Item Value Reference Range Interpretation Comments CO2 (test code = CO2) 24 24-32 N [facility] HospitalScqyfnnJWWTGYAOH1214-75-21 10:56:00 Test Item Value Reference Range Interpretation Comments Chloride Lvl (test code = Chloride Lvl) 106 95-109 N [facility] HospitalLnikqcvNJZERRXZF6018-83-18 10:56:00 Test Item Value Reference Range Interpretation Comments Potassium Lvl (test code = Potassium 4.6 3.5-5.1 N Lvl) [facility] HospitalJgcrozeUWNXKULWZ1022-69-71 10:56:00 Test Item Value Reference Range Interpretation Comments Sodium Lvl (test code = Sodium Lvl) 141 135-145 N [facility] HospitalCxgsdudAIRKDRBYS2075-12-11 10:56:00 Test Item Value Reference Range Interpretation Comments Calcium Lvl (test code = Calcium Lvl) 8.7 8.5-10.5 N [facility] HospitalEnbylnpDKLPYNAQA1038-65-71 10:56:00 Test Item Value Reference Range Interpretation Comments BUN (test code = BUN) 14 7-22 N [facility] HospitalRufjrxhXKCQYIHCO4037-01-25 10:56:00 Test Item Value Reference Range Interpretation Comments Glucose Lvl (test code = Glucose Lvl) 111 [facility] HospitalWnzogwdGJBSITDGL2485-61-07 10:56:00 Test Item Value Reference Range Interpretation Comments Creatinine Lvl (test code = Creatinine 1.1 0.5-1.4 N Lvl) [facility] HospitalXmteopvXPMPRWBRB3051-39-44 10:56:00 Test Item Value Reference Range Interpretation Comments Phosphorus (test code = Phosphorus) 4.0 2.5-4.5 N [facility] HospitalZpramdsBZLRADFEE2176-31-13 10:56:00 Test Item Value Reference Range Interpretation Comments Magnesium Lvl (test code = Magnesium 1.8 1.8-2.4 N Lvl) [facility] HospitalHtxypdoGOOARDMEL2232-47-03 10:56:00 Test Item Value Reference Range Interpretation Comments Troponin-I (test code no gt See_Comment N [Auto mated message] The = Troponin-I) system which g enerated this result transmit quoc reference range : <=0.40. The reference r ana luisa was not used to interpr et this result as marco l/abnormal. [facility] HospitalTnjyutbPTMCMBVPM0185-25-27 10:56:00 Test Item Value Reference Range Interpretation Comments Myoglobin (test code = Myoglobin) 47 25-72 N [facility] HospitalPmveqggKHUVLECQFU4967-81-27 10:56:00 Test Item Value Reference Range Interpretation Comments PT (test code = PT) 14.0 s 12.0-14.7 N [facility] HospitalLlkoropSZBCXCBECC7386-09-40 10:56:00 Test Item Value Reference Range Interpretation Comments PTT (test code = PTT) 28.2 s 22.9-35.8 N [facility] HospitalNzipskhBTOFLFIESW6134-06-81 10:56:00 Test Item Value Reference Range Interpretation Comments INR (test code = INR) 1.08 0.85-1.17 N [facility] HospitalJqfosycSTNZXJUPQC9162-55-17 10:56:00 Test Item Value Reference Range Interpretation Comments Hct (test code = Hct) 37.6 42.0-54.0 L [facility] HospitalDxczrsrUFZKFHTHLU6444-96-95 10:56:00 Test Item Value Reference Range Interpretation Comments Hgb (test code = Hgb) 12.9 14.0-18.0 L [facility] HospitalNanamqsAQHDGGPLZU9713-39-44 10:56:00 Test Item Value Reference Range Interpretation Comments MCHC (test code = MCHC) 34.4 32.0-36.0 N [facility] HospitalUmpxxvtSOWTTSYJUS3803-97-08 10:56:00 Test Item Value Reference Range Interpretation Comments MCH (test code = MCH) 31.4 pg 27.0-31.0 H [facility] HospitalEhwbepfTNKDXRDLBO0576-62-06 10:56:00 Test Item Value Reference Range Interpretation Comments MCV (test code = MCV) 91.3 80.0-94.0 N [facility] HospitalHpavxbpTCHJXKZCRS5421-37-98 10:56:00 Test Item Value Reference Range Interpretation Comments Platelet (test code = Platelet) 312 133-450 N [facility] HospitalEcvglkgZHRHOQHGYA1883-67-74 10:56:00 Test Item Value Reference Range Interpretation Comments RDW (test code = RDW) 13.4 11.5-14.5 N [facility] HospitalGwrehfbQPJMCGYFXS4152-30-60 10:56:00 Test Item Value Reference Range Interpretation Comments MPV (test code = MPV) 6.9 7.4-10.4 L [facility] HospitalEkafdfnHLEYMOETGP9809-39-07 10:56:00 Test Item Value Reference Range Interpretation Comments WBC (test code = WBC) 5.1 3.7-10.4 N [facility] HospitalRwaahdvUDHJOAOWQW8220-04-00 10:56:00 Test Item Value Reference Range Interpretation Comments RBC (test code = RBC) 4.12 4.70-6.10 L [facility] HospitalTynzadmVJSAPHCTVY9532-07-45 10:56:00 Test Item Value Reference Range Interpretation Comments Segs-Bands # (test code = Segs-Bands #) 2.4 1.5-8.1 N [facility] HospitalZkvgeqaDVBDSZILNW3135-12-73 10:56:00 Test Item Value Reference Range Interpretation Comments Lymphocytes # (test code = Lymphocytes 1.4 1.0-5.5 N #) [facility] HospitalWcuzwvbCMPZXRQELE5484-37-90 10:56:00 Test Item Value Reference Range Interpretation Comments Basophils (test code = 0.4 See_Comment N [Aut omated message] The Basophils) system which ge nerated this result tra nsmitted reference range : <=1.0. The reference r ana luisa was not used to int erpret this result as normal/abnormal . [facility] HospitalWfusyrvJANBZSZFNX2313-96-64 10:56:00 Test Item Value Reference Range Interpretation Comments Monocytes # (test code 1.0 See_Comment H [Aut omated message] The = Monocytes #) system which generated this result tra nsmitted reference range : <=0.8. The reference r ana luisa was not used to int erpret this result as normal/abnormal . [facility] HospitalQgegpypMAIULCIXRP6141-44-93 10:56:00 Test Item Value Reference Range Interpretation Comments Eosinophils # (test code 0.2 See_Comment N [A utomated message] The = Eosinophils #) system whic h generated this result tra nsmitted reference range : <=0.5. The reference r ana luisa was not used to int erpret this result as normal/abnormal . [facility] HospitalNizgcsmLQCZEFXDBE8670-92-96 10:56:00 Test Item Value Reference Range Interpretation Comments Basophils # (test code 0.0 See_Comment N [Aut omated message] The = Basophils #) system which generated this result tra nsmitted reference range : <=0.2. The reference r ana luisa was not used to int erpret this result as normal/abnormal . [facility] HospitalFfnczwnYYTZVBGNHP8931-03-64 10:56:00 Test Item Value Reference Range Interpretation Comments Monocytes (test code = Monocytes) 19.6 2.0-12.0 H [facility] HospitalIpcywwjZRMDMPCVAS2350-90-06 10:56:00 Test Item Value Reference Range Interpretation Comments Lymphocytes (test code = Lymphocytes) 28.4 20.0-40.0 N [facility] HospitalZauldryCIWLWZFNYV3746-98-76 10:56:00 Test Item Value Reference Range Interpretation Comments Segs (test code = Segs) 47.8 45.0-75.0 N [facility] HospitalSbavnaiJWWPGQESTB8136-21-13 10:56:00 Test Item Value Reference Range Interpretation Comments Eosinophils (test code = 3.8 See_Comment N [A utomated message] The Eosinophils) system which ge nerated this result tra nsmitted reference range : <=4.0. The reference r ana luisa was not used to int erpret this result as normal/abnormal . [facility] HospitalMolkqrdKUDMELWRG9590-03-66 10:56:00 Test Item Value Reference Range Interpretation Comments Troponin-T (test code no gt See_Comment N [Auto mated message] The = Troponin-T) system which g enerated this result transmit quoc reference range : <=0.100. The reference r ana luisa was not used to interpr et this result as marco l/abnormal. [facility] HospitalUrcvryaYAZEHFBJJ4530-48-95 10:56:00 Test Item Value Reference Range Interpretation Comments Total CK (test code = Total CK) 34 12-191 N [facility] CenterBvzzsgxMRSSMCEZW1029-07-57 10:56:00 Test Item Value Reference Range Interpretation Comments Amylase Lvl (test code = Amylase Lvl) 139 25-115 H [facility] CenterDegyoyzNSWAIZOPZ2242-69-18 10:56:00 Test Item Value Reference Range Interpretation Comments CHD Risk (test code = CHD Risk) 5.79 4.00-7.30 N [facility] CenterBpjtgieVHHNOMIND9426-95-51 10:56:00 Test Item Value Reference Range Interpretation Comments LDL (test code = LDL) 91 See_Comment N [Auto mated message] The system which ge nerated this result transmit quoc reference range : <=129. The reference range was not used to interpr et this result as marco l/abnormal. [facility] CenterKcnhixbKGKSEINRG3370-45-67 10:56:00 Test Item Value Reference Range Interpretation Comments HDL (test code = HDL) 24 L [facility] CenterCsknqkwQKJYVUYGX1246-69-69 10:56:00 Test Item Value Reference Range Interpretation Comments Trig (test code = 120 See_Comment N [Automate d message] The Trig) system which ge nerated this result transmit quoc reference range : <=200. The reference range was not used to interpr et this result as marco l/abnormal. [facility] CenterBmdinrpGKSRGLEJI8230-55-74 10:56:00 Test Item Value Reference Range Interpretation Comments Chol (test code = Chol) 139 120-200 N [facility] CenterBxpzkwzLESQFEDQE5175-00-24 10:56:00 Test Item Value Reference Range Interpretation Comments Lipase Lvl (test code = Lipase Lvl) 447 73-393 H [facility] CenterTxvubleIGKZALVSK5597-80-42 10:56:00 Test Item Value Reference Range Interpretation Comments ALT (test code = ALT) 95 See_Comment H [Auto mated message] The system which ge nerated this result transmit quoc reference range : <=65. The reference range was not used to interpr et this result as marco l/abnormal. [facility] CwtgigzQENXMQINX3376-53-14 10:56:00 Test Item Value Reference Range Interpretation Comments Albumin Lvl (test code = Albumin Lvl) 3.2 3.5-5.0 L [facility] ApdqgtlIIQZNHTQW7820-02-29 10:56:00 Test Item Value Reference Range Interpretation Comments Bili Direct (test code 0.8 See_Comment H [Aut omated message] The = Bili Direct) system which generated this result tra nsmitted reference range : <=0.3. The reference r ana luisa was not used to int erpret this result as marco l/abnormal. [facility] HospitalPfnaoklPJIKPUTRL4108-52-98 10:56:00 Test Item Value Reference Range Interpretation Comments Alk Phos (test code = Alk Phos) 180 39-136 H [facility] HospitalDzbmeanRSUAOUHSD8508-72-20 10:56:00 Test Item Value Reference Range Interpretation Comments Globulin (test code = Globulin) 3.0 2.0-4.0 N [facility] HospitalOwnrbdiEJPZDWDMY4657-08-50 10:56:00 Test Item Value Reference Range Interpretation Comments AST (test code = AST) 125 See_Comment H [Auto mated message] The system which ge nerated this result transmit quoc reference range : <=37. The reference range was not used to interpr et this result as marco l/abnormal. [facility] HospitalXdhlvekWGUEOUPCC6095-52-44 10:56:00 Test Item Value Reference Range Interpretation Comments A/G Ratio (test code = A/G Ratio) 1.1 0.7-1.6 N [facility] HospitalRaseqmdMNPRFBXYR4115-00-67 10:56:00 Test Item Value Reference Range Interpretation Comments Bili Total (test code = Bili Total) 1.2 0.2-1.3 N [facility] HospitalHdoklqjVNXWSOTHA4363-35-82 10:56:00 Test Item Value Reference Range Interpretation Comments Total Protein (test code = Total 6.2 6.4-8.4 L Protein) [facility] HospitalYxrmqzkRKNTSPNTI7244-19-82 10:56:00 Test Item Value Reference Range Interpretation Comments Bili Indirect (test 0.4 See_Comment N [Automa quoc message] The code = Bili Indirect) system which generated this result tra nsmitted reference range : <=1.0. The reference r ana luisa was not used to int erpret this result as normal/abnormal . [facility] HospitalCzbxapjDPICKKCSI2149-67-76 10:56:00 Test Item Value Reference Range Interpretation Comments LDH (test code = LDH) 167 98-192 N [facility] HospitalVaygyqnGHOSMKDOO4591-08-54 10:56:00 Test Item Value Reference Range Interpretation Comments UIBC (test code = UIBC) 158 110-370 N [facility] HospitalQlbkrpdZEMQEYKIN7029-31-95 10:56:00 Test Item Value Reference Range Interpretation Comments % Satur Fe (test code = % Satur Fe) 38 12-57 N [facility] HospitalMavjmjsRCTFLVXWY5787-73-59 10:56:00 Test Item Value Reference Range Interpretation Comments TIBC (test code = TIBC) 256 228-428 N [facility] HospitalDeurneuLTZJSOVGY9482-68-03 10:56:00 Test Item Value Reference Range Interpretation Comments Iron (test code = Iron) 98 45-160 N [facility] HospitalHfllimhEODMMBCST4704-14-09 10:56:00 Test Item Value Reference Range Interpretation Comments Ca Ion (test code = Ca Ion) 1.13 1.16-1.30 L [facility] HospitalJnedldtKVTAEKBOQ7263-07-96 10:56:00 Test Item Value Reference Range Interpretation Comments Ca Norm (test code = Ca Norm) 1.13 1.16-1.30 L [facility] HospitalCmmvckiCTGGUHLTY3322-91-46 10:56:00 Test Item Value Reference Range Interpretation Comments Ca Ion mgdL (test code = Ca Ion mgdL) 4.52 4.65-5.20 L [facility] HospitalVnlzsycBLDKDOKDR2027-24-85 10:56:00 Test Item Value Reference Range Interpretation Comments Ca Norm mgdL (test code = Ca Norm mgdL) 4.52 4.65-5.20 L [facility] HospitalNgzjvhpJKAQKAMGC1653-44-98 10:56:00 Test Item Value Reference Range Interpretation Comments AGAP (test code = AGAP) 15.6 10.0-20.0 N [facility] HospitalYunqjigCDHBCJPPM9226-33-23 10:56:00 Test Item Value Reference Range Interpretation Comments CO2 (test code = CO2) 24 24-32 N [facility] HospitalCigsjpqZNIFLNEMD9044-05-82 10:56:00 Test Item Value Reference Range Interpretation Comments Chloride Lvl (test code = Chloride Lvl) 106 95-109 N [facility] HospitalKjqosgzWVJHMOUCP6999-51-34 10:56:00 Test Item Value Reference Range Interpretation Comments Potassium Lvl (test code = Potassium 4.6 3.5-5.1 N Lvl) [facility] HospitalBjipvopHLCEVUOMI5053-83-94 10:56:00 Test Item Value Reference Range Interpretation Comments Sodium Lvl (test code = Sodium Lvl) 141 135-145 N [facility] HospitalYwnabydZYLJEUBET6997-95-03 10:56:00 Test Item Value Reference Range Interpretation Comments Calcium Lvl (test code = Calcium Lvl) 8.7 8.5-10.5 N [facility] HospitalNnjtxtaNJSACYBNQ4346-99-36 10:56:00 Test Item Value Reference Range Interpretation Comments BUN (test code = BUN) 14 7-22 N [facility] HospitalGiovrbqFIOVLCAEJ0679-07-77 10:56:00 Test Item Value Reference Range Interpretation Comments Glucose Lvl (test code = Glucose Lvl) 111 [facility] HospitalYjdxgrhGZTJPOTJC4153-32-65 10:56:00 Test Item Value Reference Range Interpretation Comments Creatinine Lvl (test code = Creatinine 1.1 0.5-1.4 N Lvl) [facility] HospitalQmxyqsbOWHZYJYHD6975-03-55 10:56:00 Test Item Value Reference Range Interpretation Comments Phosphorus (test code = Phosphorus) 4.0 2.5-4.5 N [facility] HospitalOuqjxjdOEZGVAZAC3464-41-18 10:56:00 Test Item Value Reference Range Interpretation Comments Magnesium Lvl (test code = Magnesium 1.8 1.8-2.4 N Lvl) [facility] HospitalXvrgituPBOXXCPNV2589-42-87 10:56:00 Test Item Value Reference Range Interpretation Comments Troponin-I (test code no gt See_Comment N [Auto mated message] The = Troponin-I) system which g enerated this result transmit quoc reference range : <=0.40. The reference r ana luisa was not used to interpr et this result as marco l/abnormal. [facility] HospitalWhlppqoVOEQUQDGD1167-94-07 10:56:00 Test Item Value Reference Range Interpretation Comments Myoglobin (test code = Myoglobin) 47 25-72 N [facility] HospitalYmxnksvLCUUUDJLBZ7475-84-61 10:56:00 Test Item Value Reference Range Interpretation Comments PT (test code = PT) 14.0 s 12.0-14.7 N [facility] HospitalZyzcxppGPHHXJPNPU4865-87-96 10:56:00 Test Item Value Reference Range Interpretation Comments PTT (test code = PTT) 28.2 s 22.9-35.8 N [facility] HospitalVuztoaqLQSYSIBAZU1752-80-37 10:56:00 Test Item Value Reference Range Interpretation Comments INR (test code = INR) 1.08 0.85-1.17 N [facility] HospitalXdhwkxdPUMHQGSLZA5060-39-78 10:56:00 Test Item Value Reference Range Interpretation Comments Hct (test code = Hct) 37.6 42.0-54.0 L [facility] HospitalTkhbagnLBMIZHGKWM4302-10-85 10:56:00 Test Item Value Reference Range Interpretation Comments Hgb (test code = Hgb) 12.9 14.0-18.0 L [facility] HospitalBbqohxiLIHNWQPEOR1918-43-71 10:56:00 Test Item Value Reference Range Interpretation Comments MCHC (test code = MCHC) 34.4 32.0-36.0 N [facility] HospitalMdicrlcWVFSAKKJLT6159-71-96 10:56:00 Test Item Value Reference Range Interpretation Comments MCH (test code = MCH) 31.4 pg 27.0-31.0 H [facility] HospitalDjkewwjEHVULXLEVW9967-77-12 10:56:00 Test Item Value Reference Range Interpretation Comments MCV (test code = MCV) 91.3 80.0-94.0 N [facility] HospitalEdatadtYZGSOQHQKX8941-31-65 10:56:00 Test Item Value Reference Range Interpretation Comments Platelet (test code = Platelet) 312 133-450 N [facility] HospitalUugarmgETPSGVNQSS8422-45-14 10:56:00 Test Item Value Reference Range Interpretation Comments RDW (test code = RDW) 13.4 11.5-14.5 N [facility] HospitalSooiubcPHIQUWUGMF1957-34-50 10:56:00 Test Item Value Reference Range Interpretation Comments MPV (test code = MPV) 6.9 7.4-10.4 [facility]2012-01-27 10:56:00 Test Item Value Reference Range Interpretation Comments WBC (test code = WBC) 5.1 3.7-10.4 N [facility] HospitalVlgexoxICIPAJBOCH4846-62-64 10:56:00 Test Item Value Reference Range Interpretation Comments RBC (test code = RBC) 4.12 4.70-6.10 L [facility] HospitalIzunllpQZSBBTXIVG9283-43-26 10:56:00 Test Item Value Reference Range Interpretation Comments Segs-Bands # (test code = Segs-Bands #) 2.4 1.5-8.1 N [facility] HospitalSsporquPUNPOZPXWH2881-67-84 10:56:00 Test Item Value Reference Range Interpretation Comments Lymphocytes # (test code = Lymphocytes 1.4 1.0-5.5 N #) [facility] HospitalFooiectBFCYRMRQSX1050-53-87 10:56:00 Test Item Value Reference Range Interpretation Comments Basophils (test code = 0.4 See_Comment N [Aut omated message] The Basophils) system which ge nerated this result tra nsmitted reference range : <=1.0. The reference r ana luisa was not used to int erpret this result as normal/abnormal . [facility] HospitalIpqirxnDNQGSVZOVB7108-58-54 10:56:00 Test Item Value Reference Range Interpretation Comments Monocytes # (test code 1.0 See_Comment H [Aut omated message] The = Monocytes #) system which generated this result tra nsmitted reference range : <=0.8. The reference r ana luisa was not used to int erpret this result as normal/abnormal . [facility] HospitalNsrgzroLBLRWMBEGR7619-56-81 10:56:00 Test Item Value Reference Range Interpretation Comments Eosinophils # (test code 0.2 See_Comment N [A utomated message] The = Eosinophils #) system wh h generated this result tra nsmitted reference range : <=0.5. The reference r ana luisa was not used to int erpret this result as normal/abnormal . [facility] HospitalZvchdyhBZJCPVTVCA0456-04-43 10:56:00 Test Item Value Reference Range Interpretation Comments Basophils # (test code 0.0 See_Comment N [Aut omated message] The = Basophils #) system which generated this result tra nsmitted reference range : <=0.2. The reference r ana luisa was not used to int erpret this result as normal/abnormal . [facility] HospitalMadnuzcASYKFAOHCG3128-39-69 10:56:00 Test Item Value Reference Range Interpretation Comments Monocytes (test code = Monocytes) 19.6 2.0-12.0 H [facility] HospitalDgcuotpWQBZGKUWAK8341-59-15 10:56:00 Test Item Value Reference Range Interpretation Comments Lymphocytes (test code = Lymphocytes) 28.4 20.0-40.0 N [facility] HospitalCjbkafyOBVRGVAKDO2924-13-58 10:56:00 Test Item Value Reference Range Interpretation Comments Segs (test code = Segs) 47.8 45.0-75.0 N [facility] HospitalFkegfmkQSNFVJQHNN9284-39-55 10:56:00 Test Item Value Reference Range Interpretation Comments Eosinophils (test code = 3.8 See_Comment N [A utomated message] The Eosinophils) system which nerated this result tra nsmitted reference range : <=4.0. The reference r ana luisa was not used to int erpret this result as normal/abnormal . [facility] HospitalYhpwkcyCHVAXIFPC7565-16-90 08:30:00 Test Item Value Reference Range Interpretation Comments Magnesium Lvl (test code = Magnesium 1.5 1.8-2.4 L Lvl) [facility] HospitalHjtpdtsXWFZGUUXE9043-82-03 08:30:00 Test Item Value Reference Range Interpretation Comments Albumin Lvl (test code = Albumin Lvl) 2.5 3.5-5.0 L [facility] HospitalJchntieRFOTXDEQC1925-56-45 08:30:00 Test Item Value Reference Range Interpretation Comments Alk Phos (test code = Alk Phos) 144 39-136 H [facility] HospitalMqxmxcuLLEYETSXJ6322-68-65 08:30:00 Test Item Value Reference Range Interpretation Comments Creatinine Lvl (test code = Creatinine 0.6 0.5-1.4 N Lvl) [facility] HospitalPqlayuwCWSVRTWYE7514-40-43 08:30:00 Test Item Value Reference Range Interpretation Comments Sodium Lvl (test code = Sodium Lvl) 143 135-145 N [facility] HospitalQrkfnnwRCXOKCYTC0850-59-95 08:30:00 Test Item Value Reference Range Interpretation Comments Glucose Lvl (test code = Glucose Lvl) 113 [facility] HospitalQiclehuHEYDOWPMX8745-77-87 08:30:00 Test Item Value Reference Range Interpretation Comments BUN (test code = BUN) 12 7-22 N [facility] HospitalGntshbqCWSHPDUSS6206-47-95 08:30:00 Test Item Value Reference Range Interpretation Comments ALT (test code = ALT) 81 See_Comment H [Auto mated message] The system which ge nerated this result transmit quoc reference range : <=65. The reference range was not used to interpr et this result as marco l/abnormal. [facility] HospitalCjdozdvODFJNJZNM4243-36-85 08:30:00 Test Item Value Reference Range Interpretation Comments Total Protein (test code = Total 5.0 6.4-8.4 L Protein) [facility] HospitalIxsaicaEZBYNZYFL9973-02-37 08:30:00 Test Item Value Reference Range Interpretation Comments AGAP (test code = AGAP) 17.1 10.0-20.0 N [facility] HospitalBjdzifcMZDVSEEVN3719-69-39 08:30:00 Test Item Value Reference Range Interpretation Comments B/C Ratio (test code = B/C Ratio) 20 6-25 N [facility] HospitalPuesqmnMKLAEFJDZ9488-84-67 08:30:00 Test Item Value Reference Range Interpretation Comments Globulin (test code = Globulin) 2.5 2.0-4.0 N [facility] HospitalRuxmxfxISYWQCEOX7005-91-07 08:30:00 Test Item Value Reference Range Interpretation Comments A/G Ratio (test code = A/G Ratio) 1.0 0.7-1.6 N [facility] HospitalShztydgBYTCQFQAK6323-82-28 08:30:00 Test Item Value Reference Range Interpretation Comments Potassium Lvl (test code = Potassium 4.1 3.5-5.1 N Lvl) [facility] HospitalMoeczlnAZIQTVFUC6196-51-87 08:30:00 Test Item Value Reference Range Interpretation Comments Calcium Lvl (test code = Calcium Lvl) 6.9 8.5-10.5 A [facility] HospitalHvlmsmeKJLIEIYMP7915-09-21 08:30:00 Test Item Value Reference Range Interpretation Comments Bili Total (test code = Bili Total) 1.0 0.2-1.3 N [facility] HospitalSnechiaZTMEGLYEQ5399-98-37 08:30:00 Test Item Value Reference Range Interpretation Comments Chloride Lvl (test code = Chloride Lvl) 110 95-109 H [facility] HospitalKapttgsPDPYYECON7007-91-65 08:30:00 Test Item Value Reference Range Interpretation Comments CO2 (test code = CO2) 20 24-32 L [facility] HospitalBzjorrrVZQNMREJD0777-01-12 08:30:00 Test Item Value Reference Range Interpretation Comments AST (test code = AST) 123 See_Comment H [Auto mated message] The system which ge nerated this result transmit quoc reference range : <=37. The reference range was not used to interpr et this result as marco l/abnormal. [facility] HospitalCfsybmkZFLZFINBN0551-90-64 08:30:00 Test Item Value Reference Range Interpretation Comments Phosphorus (test code = Phosphorus) 3.0 2.5-4.5 N [facility] HospitalYltbuhdPVPBRXPACJ2689-06-13 08:30:00 Test Item Value Reference Range Interpretation Comments MCH (test code = MCH) 31.3 pg 27.0-31.0 H [facility] HospitalWmidqydKSLJFSFNTT8663-98-51 08:30:00 Test Item Value Reference Range Interpretation Comments MCHC (test code = MCHC) 34.0 32.0-36.0 N [facility] HospitalNsxfacaNLUFWDGHVY8513-07-28 08:30:00 Test Item Value Reference Range Interpretation Comments RDW (test code = RDW) 13.3 11.5-14.5 N [facility] HospitalAiaxtppHEFXEJCKTO9866-98-66 08:30:00 Test Item Value Reference Range Interpretation Comments MCV (test code = MCV) 91.9 80.0-94.0 N [facility] HospitalMdzuwpyJOBTUDNFBQ3027-02-38 08:30:00 Test Item Value Reference Range Interpretation Comments RBC (test code = RBC) 4.05 4.70-6.10 L [facility] HospitalVfhlbjnGBIRLEFYWI2783-57-43 08:30:00 Test Item Value Reference Range Interpretation Comments Hct (test code = Hct) 37.2 42.0-54.0 L [facility] HospitalQkdcarrZTCJMAOGHI0073-16-43 08:30:00 Test Item Value Reference Range Interpretation Comments Hgb (test code = Hgb) 12.7 14.0-18.0 L [facility] HospitalOvqdbaeKITBADJUOL2506-72-50 08:30:00 Test Item Value Reference Range Interpretation Comments WBC (test code = WBC) 4.4 3.7-10.4 N [facility] HospitalTalqoooFQXBLSCOFY8739-36-81 08:30:00 Test Item Value Reference Range Interpretation Comments MPV (test code = MPV) 7.1 7.4-10.4 L [facility] HospitalWbipmekKKJQQYJPPC2128-47-66 08:30:00 Test Item Value Reference Range Interpretation Comments Platelet (test code = Platelet) 329 133-450 N [facility] HospitalIyzjemnYSEADBWKRB7990-89-72 08:30:00 Test Item Value Reference Range Interpretation Comments Segs-Bands # (test code = Segs-Bands #) 2.0 1.5-8.1 N [facility] HospitalWpwvgycBBPCHIBRWN7424-52-79 08:30:00 Test Item Value Reference Range Interpretation Comments Eosinophils (test code = 4.2 See_Comment H [A utomated message] The Eosinophils) system which ge nerated this result tra nsmitted reference range : <=4.0. The reference r ana luisa was not used to int erpret this result as normal/abnormal . [facility] HospitalAmwtulrRXXFHCDMKB2018-27-72 08:30:00 Test Item Value Reference Range Interpretation Comments Basophils (test code = 0.4 See_Comment N [Aut omated message] The Basophils) system which ge nerated this result tra nsmitted reference range : <=1.0. The reference r ana luisa was not used to int erpret this result as normal/abnormal . [facility] HospitalCldnetkPKDCXCNNUZ6102-37-37 08:30:00 Test Item Value Reference Range Interpretation Comments Segs (test code = Segs) 46.1 45.0-75.0 N [facility] HospitalPlozbmjIIMNJEJCNY6081-34-81 08:30:00 Test Item Value Reference Range Interpretation Comments Lymphocytes (test code = Lymphocytes) 30.9 20.0-40.0 N [facility] HospitalCdmqydmNSTFYJMBNB6532-32-35 08:30:00 Test Item Value Reference Range Interpretation Comments Monocytes (test code = Monocytes) 18.4 2.0-12.0 H [facility] HospitalCnloywlYYEPTHGKCS2721-16-56 08:30:00 Test Item Value Reference Range Interpretation Comments Lymphocytes # (test code = Lymphocytes 1.4 1.0-5.5 N #) [facility] HospitalUnvruzrPZHILNTVVS3361-58-87 08:30:00 Test Item Value Reference Range Interpretation Comments Large Plt (test code = Slight *ABN*(09/22/2011 A Large Plt) 02:30:00) [facility] HospitalXieaghvQZKVOZYMYT9927-88-25 08:30:00 Test Item Value Reference Range Interpretation Comments Eosinophils # (test code 0.2 See_Comment N [A utomated message] The = Eosinophils #) system whic h generated this result tra nsmitted reference range : <=0.5. The reference r ana luisa was not used to int erpret this result as normal/abnormal . [facility] HospitalCjmfmajXNBTZTWRGL7619-73-15 08:30:00 Test Item Value Reference Range Interpretation Comments Basophils # (test code 0.0 See_Comment N [Aut omated message] The = Basophils #) system which generated this result tra nsmitted reference range : <=0.2. The reference r ana luisa was not used to int erpret this result as normal/abnormal . [facility] HospitalTjuhirlKGJITLOBNV5064-36-26 08:30:00 Test Item Value Reference Range Interpretation Comments Monocytes # (test code 0.8 See_Comment N [Aut omated message] The = Monocytes #) system which generated this result tra nsmitted reference range : <=0.8. The reference r ana luisa was not used to int erpret this result as normal/abnormal . [facility] HospitalEztaxrfUENDZGTZD9182-77-83 08:30:00 Test Item Value Reference Range Interpretation Comments Magnesium Lvl (test code = Magnesium 1.5 1.8-2.4 L Lvl) [facility] HospitalXeyiyfgMAGGUZYTH3305-40-51 08:30:00 Test Item Value Reference Range Interpretation Comments Albumin Lvl (test code = Albumin Lvl) 2.5 3.5-5.0 L [facility] HospitalIclhwirOPBWUMGAY4929-92-90 08:30:00 Test Item Value Reference Range Interpretation Comments Alk Phos (test code = Alk Phos) 144 39-136 H [facility] HospitalQpbppdmFDYUAWBLJ6529-78-43 08:30:00 Test Item Value Reference Range Interpretation Comments Creatinine Lvl (test code = Creatinine 0.6 0.5-1.4 N Lvl) [facility] HospitalViephehTNCBENMWB1755-69-29 08:30:00 Test Item Value Reference Range Interpretation Comments Sodium Lvl (test code = Sodium Lvl) 143 135-145 N [facility] HospitalDcbpknsFYHUMBAOE1299-47-45 08:30:00 Test Item Value Reference Range Interpretation Comments Glucose Lvl (test code = Glucose Lvl) 113 [facility] HospitalQsawciiHXEHHORYA2019-15-43 08:30:00 Test Item Value Reference Range Interpretation Comments BUN (test code = BUN) 12 7-22 N [facility] HospitalShtyxnfURQTUVYSR1432-68-73 08:30:00 Test Item Value Reference Range Interpretation Comments ALT (test code = ALT) 81 See_Comment H [Auto mated message] The system which ge nerated this result transmit quoc reference range : <=65. The reference range was not used to interpr et this result as marco l/abnormal. [facility] HospitalCsamrttYCLTFGHAU4406-18-00 08:30:00 Test Item Value Reference Range Interpretation Comments Total Protein (test code = Total 5.0 6.4-8.4 L Protein) [facility] HospitalDzmnvfdFMOZHIIKS7228-48-67 08:30:00 Test Item Value Reference Range Interpretation Comments AGAP (test code = AGAP) 17.1 10.0-20.0 N [facility] HospitalJrkzxhoYOGBVMFXD6071-55-12 08:30:00 Test Item Value Reference Range Interpretation Comments B/C Ratio (test code = B/C Ratio) 20 6-25 N [facility] HospitalWngqshdNWHMFTDGX4189-07-52 08:30:00 Test Item Value Reference Range Interpretation Comments Globulin (test code = Globulin) 2.5 2.0-4.0 N [facility] HospitalKsuufeuTRKTURMZJ5396-88-31 08:30:00 Test Item Value Reference Range Interpretation Comments A/G Ratio (test code = A/G Ratio) 1.0 0.7-1.6 N [facility] HospitalJgwvzulPHQTEJQNP4375-98-32 08:30:00 Test Item Value Reference Range Interpretation Comments Potassium Lvl (test code = Potassium 4.1 3.5-5.1 N Lvl) [facility] HospitalAahgctkHPLLYFSCN4430-30-56 08:30:00 Test Item Value Reference Range Interpretation Comments Calcium Lvl (test code = Calcium Lvl) 6.9 8.5-10.5 A [facility] HospitalBdvpnpzPENQUUDEZ4449-98-94 08:30:00 Test Item Value Reference Range Interpretation Comments Bili Total (test code = Bili Total) 1.0 0.2-1.3 N [facility] HospitalWugajglUBKLLYRFP0858-17-27 08:30:00 Test Item Value Reference Range Interpretation Comments Chloride Lvl (test code = Chloride Lvl) 110 95-109 H [facility] HospitalEvgcoonIKRDDOEIY6268-57-61 08:30:00 Test Item Value Reference Range Interpretation Comments CO2 (test code = CO2) 20 24-32 L [facility] HospitalYcxbmeuJARDXTBWP7814-02-55 08:30:00 Test Item Value Reference Range Interpretation Comments AST (test code = AST) 123 See_Comment H [Auto mated message] The system which ge nerated this result transmit quoc reference range : <=37. The reference range was not used to interpr et this result as marco l/abnormal. [facility] HospitalRbkdumwHTAZNYJHK2667-86-57 08:30:00 Test Item Value Reference Range Interpretation Comments Phosphorus (test code = Phosphorus) 3.0 2.5-4.5 N [facility] HospitalEzclbciGEGREKESZN5221-53-52 08:30:00 Test Item Value Reference Range Interpretation Comments MCH (test code = MCH) 31.3 pg 27.0-31.0 H [facility] HospitalPtnuohbVRSFMODMFY9019-51-92 08:30:00 Test Item Value Reference Range Interpretation Comments MCHC (test code = MCHC) 34.0 32.0-36.0 N [facility] HospitalYnfjsypZNEKVTORBL4288-54-07 08:30:00 Test Item Value Reference Range Interpretation Comments RDW (test code = RDW) 13.3 11.5-14.5 N [facility] HospitalDihfpngICRGPBZVVQ7422-70-07 08:30:00 Test Item Value Reference Range Interpretation Comments MCV (test code = MCV) 91.9 80.0-94.0 N [facility] HospitalUhrvlavQZOUYHBKUB6818-31-25 08:30:00 Test Item Value Reference Range Interpretation Comments RBC (test code = RBC) 4.05 4.70-6.10 L [facility] HospitalBcwjpgyGRFNAJUVSN3246-57-65 08:30:00 Test Item Value Reference Range Interpretation Comments Hct (test code = Hct) 37.2 42.0-54.0 L [facility] HospitalSoeyvdhEOMTACSGLW6550-09-74 08:30:00 Test Item Value Reference Range Interpretation Comments Hgb (test code = Hgb) 12.7 14.0-18.0 L [facility] HospitalUduipicBMSVFUYVWZ9172-86-17 08:30:00 Test Item Value Reference Range Interpretation Comments WBC (test code = WBC) 4.4 3.7-10.4 N [facility] HospitalQkwpljrNPFLOSUJDL4926-83-75 08:30:00 Test Item Value Reference Range Interpretation Comments MPV (test code = MPV) 7.1 7.4-10.4 L [facility] HospitalZbhnpwtXIIHMYPLIY0369-49-76 08:30:00 Test Item Value Reference Range Interpretation Comments Platelet (test code = Platelet) 329 133-450 N [facility] HospitalNdzpczxPEWGRRJJZJ8042-97-88 08:30:00 Test Item Value Reference Range Interpretation Comments Segs-Bands # (test code = Segs-Bands #) 2.0 1.5-8.1 N [facility] HospitalJjkalzlYPPXGWBKMI1271-62-59 08:30:00 Test Item Value Reference Range Interpretation Comments Eosinophils (test code = 4.2 See_Comment H [A utomated message] The Eosinophils) system which ge nerated this result tra nsmitted reference range : <=4.0. The reference r ana luisa was not used to int erpret this result as normal/abnormal . [facility] HospitalMmwhouwIZTZVCFJPA5682-33-09 08:30:00 Test Item Value Reference Range Interpretation Comments Basophils (test code = 0.4 See_Comment N [Aut omated message] The Basophils) system which ge nerated this result tra nsmitted reference range : <=1.0. The reference r ana luisa was not used to int erpret this result as normal/abnormal . [facility] HospitalHiwohnoHERFRQSDDX8822-99-94 08:30:00 Test Item Value Reference Range Interpretation Comments Segs (test code = Segs) 46.1 45.0-75.0 N [facility] HospitalSvcqsczSWGLYBEIMA6924-06-37 08:30:00 Test Item Value Reference Range Interpretation Comments Lymphocytes (test code = Lymphocytes) 30.9 20.0-40.0 N [facility] HospitalYmnfrkfCDVZOXWNCP4231-89-08 08:30:00 Test Item Value Reference Range Interpretation Comments Monocytes (test code = Monocytes) 18.4 2.0-12.0 H [facility] HospitalOyliqseRGYOVLRESO6310-31-55 08:30:00 Test Item Value Reference Range Interpretation Comments Lymphocytes # (test code = Lymphocytes 1.4 1.0-5.5 N #) [facility] HospitalOaztbepOALMVJOZAZ7973-42-02 08:30:00 Test Item Value Reference Range Interpretation Comments Large Plt (test code = Slight *ABN*(09/22/2011 A Large Plt) 02:30:00) [facility] HospitalJkhnyswQOCOLQVNJV4259-39-66 08:30:00 Test Item Value Reference Range Interpretation Comments Eosinophils # (test code 0.2 See_Comment N [A utomated message] The = Eosinophils #) system whic h generated this result tra nsmitted reference range : <=0.5. The reference r ana luisa was not used to int erpret this result as normal/abnormal . [facility] HospitalDaowbkcSTUBTENUJJ0140-18-34 08:30:00 Test Item Value Reference Range Interpretation Comments Basophils # (test code 0.0 See_Comment N [Aut omated message] The = Basophils #) system which generated this result tra nsmitted reference range : <=0.2. The reference r ana luisa was not used to int erpret this result as normal/abnormal . [facility] HospitalFzhnksgRLNUSOBSYL7876-74-40 08:30:00 Test Item Value Reference Range Interpretation Comments Monocytes # (test code 0.8 See_Comment N [Aut omated message] The = Monocytes #) system which generated this result tra nsmitted reference range : <=0.8. The reference r ana luisa was not used to int erpret this result as normal/abnormal . [facility] HospitalAdjrhetGGHTVEXJJ7436-27-86 10:40:00 Test Item Value Reference Range Interpretation Comments Lactic Acid Lvl (test code = Lactic 0.9 0.5-2.2 N Acid Lvl) [facility] HospitalBpswdooOUIFEBAWI0463-92-51 10:40:00 Test Item Value Reference Range Interpretation Comments Lactic Acid Lvl (test code = Lactic 0.9 0.5-2.2 N Acid Lvl) [facility]2012-01-26 10:02:00 Test Item Value Reference Range Interpretation Comments WBC CSF (test code = 1 See_Comment N [Autom ated message] The WBC CSF) system which ge nerated this result transmit quoc reference range : <=5. The reference range was not used to interpr et this result as marco l/abnormal. [facility]2012-01-26 10:02:00 Test Item Value Reference Range Interpretation Comments RBC CSF (test code = 17 See_Comment H [Autom ated message] The RBC CSF) system which ge nerated this result transmit quoc reference range : <=0. The reference range was not used to interpr et this result as marco l/abnormal. [facility]2012-01-26 10:02:00 Test Item Value Reference Range Interpretation Comments Color CSF (test code Colorless (09/21/2011 N = Color CSF) 04:02:00) [facility]2012-01-26 10:02:00 Test Item Value Reference Range Interpretation Comments Clarity CSF (test code = Clear (09/21/2011 N Clarity CSF) 04:02:00) [facility]2012-01-26 10:02:00 Test Item Value Reference Range Interpretation Comments Tube Num CSF (test code = Tube Num CSF) 4 1 [facility]2012-01-26 10:02:00 Test Item Value Reference Range Interpretation Comments Supernat CSF (test Colorless (09/21/2011 N code = Supernat CSF) 04:02:00) [facility]2012-01-26 10:02:00 Test Item Value Reference Range Interpretation Comments Glucose CSF (test code = Glucose CSF) 71 45-80 N [facility]2012-01-26 10:02:00 Test Item Value Reference Range Interpretation Comments Protein CSF (test code = Protein CSF) 67 15-45 H [facility]2012-01-26 10:02:00 Test Item Value Reference Range Interpretation Comments Color CSF (test code Colorless (09/21/2011 N = Color CSF) 04:02:00) [facility]2012-01-26 10:02:00 Test Item Value Reference Range Interpretation Comments Clarity CSF (test code = Clear (09/21/2011 N Clarity CSF) 04:02:00) [facility]2012-01-26 10:02:00 Test Item Value Reference Range Interpretation Comments Tube Num CSF (test code = Tube Num CSF) 1 1 [facility]2012-01-26 10:02:00 Test Item Value Reference Range Interpretation Comments RBC CSF (test code = 178 See_Comment H [Autom ated message] The RBC CSF) system which ge nerated this result transmit quoc reference range : <=0. The reference range was not used to interpr et this result as marco l/abnormal. [facility]2012-01-26 10:02:00 Test Item Value Reference Range Interpretation Comments Supernat CSF (test Colorless (09/21/2011 N code = Supernat CSF) 04:02:00) [facility]2012-01-26 10:02:00 Test Item Value Reference Range Interpretation Comments WBC CSF (test code = 1 See_Comment N [Autom ated message] The WBC CSF) system which ge nerated this result transmit quoc reference range : <=5. The reference range was not used to interpr et this result as marco l/abnormal. [facility] [id number] 10:02:00 Test Item Value Reference Range Interpretation Comments Crypto Ag CSF (test Negative (09/21/2011 N code = Crypto Ag CSF) 04:02:00) [facility]iscoOhrzgczRIXPHTZXYO1358-35-66 10:02:00 Test Item Value Reference Range Interpretation Comments VDRL Scr CSF (test Non Reactive (09/21/2011 N code = VDRL Scr CSF) 04:02:00) [facility]iscoBcpcezcFZTZKMDTEW0663-39-04 10:02:00 Test Item Value Reference Range Interpretation Comments Source HSV (test code = Cerebral Spinal Fluid Source HSV) [facility]iscoFvyenenRAKTOJNIAD5007-40-75 10:02:00 Test Item Value Reference Range Interpretation Comments HSV PCR Interp This sample was NON (test code = HSV DETECTED or BELOW THE PCR Interp) LOWER LIMITS OF DETECTION for HSV 1/2 DNA by real-time PCR using hybridization probe and melting curve analysis. [facility]iscoJxwdvjaMJDWDWPJVK2149-44-53 10:02:00 Test Item Value Reference Range Interpretation Comments HSV by PCR (test code Non Det 14(09/21/2011 N = HSV by PCR) 04:02:00) [facility]iscoVIR[facility] - [id number] 10:02:00 Test Item Value Reference Range Interpretation Comments Enterovirus PCR CSF Negative 5(09/21/2011 N (test code = Enterovirus 04:02:00) PCR CSF) [facility]iscoNviephoAefyhajtlphk2137-75-18 10:02:00 Test Item Value Reference Range Interpretation Comments Culture: CSF w/Gram Stain (test code = Culture: CSF w/Gram Stain) [facility]2012-01-26 10:02:00 Test Item Value Reference Range Interpretation Comments WBC CSF (test code = 1 See_Comment N [Autom ated message] The WBC CSF) system which ge nerated this result transmit quoc reference range : <=5. The reference range was not used to interpr et this result as marco l/abnormal. [facility]2012-01-26 10:02:00 Test Item Value Reference Range Interpretation Comments RBC CSF (test code = 17 See_Comment H [Autom ated message] The RBC CSF) system which ge nerated this result transmit quoc reference range : <=0. The reference range was not used to interpr et this result as marco l/abnormal. [facility]2012-01-26 10:02:00 Test Item Value Reference Range Interpretation Comments Color CSF (test code Colorless (09/21/2011 N = Color CSF) 04:02:00) [facility]2012-01-26 10:02:00 Test Item Value Reference Range Interpretation Comments Clarity CSF (test code = Clear (09/21/2011 N Clarity CSF) 04:02:00) [facility]2012-01-26 10:02:00 Test Item Value Reference Range Interpretation Comments Tube Num CSF (test code = Tube Num CSF) 4 1 [facility]2012-01-26 10:02:00 Test Item Value Reference Range Interpretation Comments Supernat CSF (test Colorless (09/21/2011 N code = Supernat CSF) 04:02:00) [facility]2012-01-26 10:02:00 Test Item Value Reference Range Interpretation Comments Glucose CSF (test code = Glucose CSF) 71 45-80 N [facility]2012-01-26 10:02:00 Test Item Value Reference Range Interpretation Comments Protein CSF (test code = Protein CSF) 67 15-45 H [facility]2012-01-26 10:02:00 Test Item Value Reference Range Interpretation Comments Color CSF (test code Colorless (09/21/2011 N = Color CSF) 04:02:00) [facility]2012-01-26 10:02:00 Test Item Value Reference Range Interpretation Comments Clarity CSF (test code = Clear (09/21/2011 N Clarity CSF) 04:02:00) [facility]2012-01-26 10:02:00 Test Item Value Reference Range Interpretation Comments Tube Num CSF (test code = Tube Num CSF) 1 1 [facility]2012-01-26 10:02:00 Test Item Value Reference Range Interpretation Comments RBC CSF (test code = 178 See_Comment H [Autom ated message] The RBC CSF) system which ge nerated this result transmit quoc reference range : <=0. The reference range was not used to interpr et this result as marco l/abnormal. [facility]2012-01-26 10:02:00 Test Item Value Reference Range Interpretation Comments Supernat CSF (test Colorless (09/21/2011 N code = Supernat CSF) 04:02:00) [facility]2012-01-26 10:02:00 Test Item Value Reference Range Interpretation Comments WBC CSF (test code = 1 See_Comment N [Autom ated message] The WBC CSF) system which ge nerated this result transmit quoc reference range : <=5. The reference range was not used to interpr et this result as marco l/abnormal. [facility] [id number] 10:02:00 Test Item Value Reference Range Interpretation Comments Crypto Ag CSF (test Negative (09/21/2011 N code = Crypto Ag CSF) 04:02:00) [facility]iscoOtoqqurNAMUXYJOSD6860-48-00 10:02:00 Test Item Value Reference Range Interpretation Comments VDRL Scr CSF (test Non Reactive (09/21/2011 N code = VDRL Scr CSF) 04:02:00) [facility]iscoTqfgytiCFZOKKBHTV7761-73-71 10:02:00 Test Item Value Reference Range Interpretation Comments Source HSV (test code = Cerebral Spinal Fluid Source HSV) [facility]iscoKsaiiwpTRWPMVMOLH0536-51-58 10:02:00 Test Item Value Reference Range Interpretation Comments HSV PCR Interp This sample was NON (test code = HSV DETECTED or BELOW THE PCR Interp) LOWER LIMITS OF DETECTION for HSV 1/2 DNA by real-time PCR using hybridization probe and melting curve analysis. [facility]iscoIqedvbuLFXIYGSNYN8910-58-01 10:02:00 Test Item Value Reference Range Interpretation Comments HSV by PCR (test code Non Det 14(09/21/2011 N = HSV by PCR) 04:02:00) [facility]iscoVIR[facility] - [id number] 10:02:00 Test Item Value Reference Range Interpretation Comments Enterovirus PCR CSF Negative 5(09/21/2011 N (test code = Enterovirus 04:02:00) PCR CSF) [facility]iscoDteiyiiSbzghwflcpsm9718-65-43 10:02:00 Test Item Value Reference Range Interpretation Comments Culture: CSF w/Gram Stain (test code = Culture: CSF w/Gram Stain) [facility] HospitalNbdhgjyDBAMYZLLZ3552-85-34 06:14:00 Test Item Value Reference Range Interpretation Comments Lipase Lvl (test code = Lipase Lvl) 272 73-393 N [facility] HospitalHsividvPLCLUMBMJ5001-48-60 06:14:00 Test Item Value Reference Range Interpretation Comments Lactic Acid Lvl (test code = Lactic 2.7 0.5-2.2 H Acid Lvl) [facility] HospitalJedlalaYNWAATXNE6163-94-81 06:14:00 Test Item Value Reference Range Interpretation Comments Chloride Lvl (test code = Chloride Lvl) 101 95-109 N [facility] HospitalZwzzezjJOPRXNEZS4733-40-19 06:14:00 Test Item Value Reference Range Interpretation Comments Potassium Lvl (test code = Potassium 4.6 3.5-5.1 N Lvl) [facility] HospitalZtfufdnRHZIFMJDU1483-77-22 06:14:00 Test Item Value Reference Range Interpretation Comments Creatinine Lvl (test code = Creatinine 1.3 0.5-1.4 N Lvl) [facility] HospitalJabnueeQRMQHHDVR2889-71-94 06:14:00 Test Item Value Reference Range Interpretation Comments Sodium Lvl (test code = Sodium Lvl) 137 135-145 N [facility] HospitalUartltaCYKNJIOVW0080-98-33 06:14:00 Test Item Value Reference Range Interpretation Comments Calcium Lvl (test code = Calcium Lvl) 9.0 8.5-10.5 N [facility] HospitalNkdiguwHZUTDICRA6494-21-91 06:14:00 Test Item Value Reference Range Interpretation Comments Glucose Lvl (test code = Glucose Lvl) 121 [facility] HospitalHixqpefLEQFMVPFU5938-90-63 06:14:00 Test Item Value Reference Range Interpretation Comments BUN (test code = BUN) 19 7-22 N [facility] HospitalJshuhjrPHKCSZILN1502-38-80 06:14:00 Test Item Value Reference Range Interpretation Comments CO2 (test code = CO2) 28 24-32 N [facility] HospitalBckhfvqYFNZGOSKX9359-64-31 06:14:00 Test Item Value Reference Range Interpretation Comments Albumin Lvl (test code = Albumin Lvl) 3.4 3.5-5.0 L [facility] HospitalIrdpyehTEFIWBUPF7227-48-89 06:14:00 Test Item Value Reference Range Interpretation Comments Bili Total (test code = Bili Total) 1.7 0.2-1.3 H [facility] HospitalUrpuqnpGRDGKTHHF4290-26-16 06:14:00 Test Item Value Reference Range Interpretation Comments ALT (test code = ALT) 49 See_Comment N [Auto mated message] The system which ge nerated this result transmit quoc reference range : <=65. The reference range was not used to interpr et this result as marco l/abnormal. [facility] HospitalRprmiolEDHYBTQPB0769-57-27 06:14:00 Test Item Value Reference Range Interpretation Comments Total Protein (test code = Total 7.2 6.4-8.4 N Protein) [facility] HospitalKhhaptcJAXZMNNCL4628-24-18 06:14:00 Test Item Value Reference Range Interpretation Comments Alk Phos (test code = Alk Phos) 170 39-136 H [facility] HospitalShlblzaRTVCFAMGY1349-84-43 06:14:00 Test Item Value Reference Range Interpretation Comments AST (test code = AST) 37 See_Comment N [Auto mated message] The system which ge nerated this result transmit quoc reference range : <=37. The reference range was not used to interpr et this result as marco l/abnormal. [facility] HospitalYvsqnbkYQJPTOLFG4433-92-10 06:14:00 Test Item Value Reference Range Interpretation Comments AGAP (test code = AGAP) 12.6 10.0-20.0 N [facility] HospitalLvaxedfYNBROUZAG3278-97-93 06:14:00 Test Item Value Reference Range Interpretation Comments B/C Ratio (test code = B/C Ratio) 15 6-25 N [facility] HospitalBgflsgzUAJNGSDVY2905-56-66 06:14:00 Test Item Value Reference Range Interpretation Comments Globulin (test code = Globulin) 3.8 2.0-4.0 N [facility] HospitalJuvqasvYUAJPGFAV5016-93-33 06:14:00 Test Item Value Reference Range Interpretation Comments A/G Ratio (test code = A/G Ratio) 0.9 0.7-1.6 N [facility] HospitalYghpgasEASNIZRLAG1620-35-93 06:14:00 Test Item Value Reference Range Interpretation Comments PTT (test code = PTT) 28.9 s 22.9-35.8 N [facility] HospitalLfspzlrWBKCFBYWSZ0028-32-80 06:14:00 Test Item Value Reference Range Interpretation Comments PT (test code = PT) 13.0 s 12.0-14.7 N [facility] HospitalWwyfcxkERAUSJGVJB6263-88-32 06:14:00 Test Item Value Reference Range Interpretation Comments INR (test code = INR) 0.98 0.85-1.17 N [facility] HospitalYpeilqbKCTXYVVKQI7100-97-33 06:14:00 Test Item Value Reference Range Interpretation Comments WBC (test code = WBC) 15.0 3.7-10.4 H [facility] HospitalJasxezeIQQDUWDLHL9498-32-65 06:14:00 Test Item Value Reference Range Interpretation Comments MCH (test code = MCH) 31.4 pg 27.0-31.0 H [facility] HospitalLqfrbqkYVTVNRUIDP6189-33-01 06:14:00 Test Item Value Reference Range Interpretation Comments MCV (test code = MCV) 90.5 80.0-94.0 N [facility] HospitalHofxrxyVOBMEKJVAB4255-94-73 06:14:00 Test Item Value Reference Range Interpretation Comments RBC (test code = RBC) 4.78 4.70-6.10 N [facility] HospitalUilyumsSMFVFJPQCJ2474-87-87 06:14:00 Test Item Value Reference Range Interpretation Comments Hct (test code = Hct) 43.3 42.0-54.0 N [facility] HospitalSbbpcjkAFTZLZWABU2310-48-04 06:14:00 Test Item Value Reference Range Interpretation Comments Hgb (test code = Hgb) 15.0 14.0-18.0 N [facility] HospitalCsiqikdRUBKELAFUL6625-09-67 06:14:00 Test Item Value Reference Range Interpretation Comments Platelet (test code = Platelet) 427 133-450 N [facility] HospitalAeshrxbAHVGWPFVQL2573-91-64 06:14:00 Test Item Value Reference Range Interpretation Comments MPV (test code = MPV) 6.9 7.4-10.4 L [facility] HospitalNuquxpuSHSCAJRPMJ1860-46-02 06:14:00 Test Item Value Reference Range Interpretation Comments MCHC (test code = MCHC) 34.7 32.0-36.0 N [facility] HospitalYsjwpabQEUJGAXQHK5654-37-22 06:14:00 Test Item Value Reference Range Interpretation Comments RDW (test code = RDW) 12.6 11.5-14.5 N [facility] HospitalAwukxafLKQLZQBATC0956-10-91 06:14:00 Test Item Value Reference Range Interpretation Comments Monocytes # (test code 0.8 See_Comment N [Aut omated message] The = Monocytes #) system which generated this result tra nsmitted reference range : <=0.8. The reference r ana luisa was not used to int erpret this result as normal/abnormal . [facility] HospitalAivnoceYXDIQTMMJB6492-49-99 06:14:00 Test Item Value Reference Range Interpretation Comments Eosinophils # (test code 0.0 See_Comment N [A utomated message] The = Eosinophils #) system whic h generated this result tra nsmitted reference range : <=0.5. The reference r ana luisa was not used to int erpret this result as normal/abnormal . [facility] HospitalKgcfyetSYVETSADUQ0379-77-07 06:14:00 Test Item Value Reference Range Interpretation Comments Basophils # (test code 0.0 See_Comment N [Aut omated message] The = Basophils #) system which generated this result tra nsmitted reference range : <=0.2. The reference r ana luisa was not used to int erpret this result as normal/abnormal . [facility] HospitalPctkmqbRISHERWZAU2016-70-66 06:14:00 Test Item Value Reference Range Interpretation Comments Lymphocytes # (test code = Lymphocytes 0.4 1.0-5.5 L #) [facility] HospitalPfkkwmqARQDMBDWOB7955-69-67 06:14:00 Test Item Value Reference Range Interpretation Comments Basophils (test code = 0.0 See_Comment N [Aut omated message] The Basophils) system which ge nerated this result tra nsmitted reference range : <=1.0. The reference r ana luisa was not used to int erpret this result as normal/abnormal . [facility] HospitalQqjccgaHYZSGRYNIY3970-76-48 06:14:00 Test Item Value Reference Range Interpretation Comments Segs-Bands # (test code = Segs-Bands #) 13.8 1.5-8.1 H [facility] HospitalNocaakbSDRICXCNIQ2303-72-51 06:14:00 Test Item Value Reference Range Interpretation Comments Eosinophils (test code = 0.2 See_Comment N [A utomated message] The Eosinophils) system which ge nerated this result tra nsmitted reference range : <=4.0. The reference r ana luisa was not used to int erpret this result as normal/abnormal . [facility] HospitalTuhnuifYQLAIVVBSI6659-89-21 06:14:00 Test Item Value Reference Range Interpretation Comments Lymphocytes (test code = Lymphocytes) 2.4 20.0-40.0 L [facility] HospitalCoxqszqTBGOJOVUJG4428-03-86 06:14:00 Test Item Value Reference Range Interpretation Comments Plt Morph (test code = Normal (09/21/2011 N Plt Morph) 00:14:00) [facility] HospitalCffodovYPMRQFGNRQ2256-71-34 06:14:00 Test Item Value Reference Range Interpretation Comments Segs (test code = Segs) 92.3 45.0-75.0 H [facility] HospitalCrspgknQGSYMVOHGD5275-69-12 06:14:00 Test Item Value Reference Range Interpretation Comments RBC Morph (test code = Normal (09/21/2011 N RBC Morph) 00:14:00) [facility] HospitalNuevtlcHUXZOHHKXN6749-49-37 06:14:00 Test Item Value Reference Range Interpretation Comments Monocytes (test code = Monocytes) 5.1 2.0-12.0 N [facility] HospitalFesiprvPQSWOHKBZ9996-73-23 06:14:00 Test Item Value Reference Range Interpretation Comments Lipase Lvl (test code = Lipase Lvl) 272 73-393 N [facility] HospitalSsrhevzDAPJGLTUD0348-56-61 06:14:00 Test Item Value Reference Range Interpretation Comments Lactic Acid Lvl (test code = Lactic 2.7 0.5-2.2 H Acid Lvl) [facility] HospitalCxdafltVIFRAGRAY4603-97-73 06:14:00 Test Item Value Reference Range Interpretation Comments Chloride Lvl (test code = Chloride Lvl) 101 95-109 N [facility] HospitalQvlxworZSPMAAXEX3935-51-01 06:14:00 Test Item Value Reference Range Interpretation Comments Potassium Lvl (test code = Potassium 4.6 3.5-5.1 N Lvl) [facility] HospitalNvhnsuoHMXIOEWON7561-14-01 06:14:00 Test Item Value Reference Range Interpretation Comments Creatinine Lvl (test code = Creatinine 1.3 0.5-1.4 N Lvl) [facility] HospitalIuramdjNTLDCHUMS7286-14-70 06:14:00 Test Item Value Reference Range Interpretation Comments Sodium Lvl (test code = Sodium Lvl) 137 135-145 N [facility] HospitalZggftfwFMPKZXSAG3325-36-56 06:14:00 Test Item Value Reference Range Interpretation Comments Calcium Lvl (test code = Calcium Lvl) 9.0 8.5-10.5 N [facility] HospitalUmgnvqyZVNTXCACJ6601-09-83 06:14:00 Test Item Value Reference Range Interpretation Comments Glucose Lvl (test code = Glucose Lvl) 121 [facility] HospitalLtytpyvLRXTVUETZ9056-55-18 06:14:00 Test Item Value Reference Range Interpretation Comments BUN (test code = BUN) 19 7-22 N [facility] HospitalVyjapgaYNSAWEUXQ2156-48-42 06:14:00 Test Item Value Reference Range Interpretation Comments CO2 (test code = CO2) 28 24-32 N [facility] HospitalIgntuefNIAWXWVLH2303-13-07 06:14:00 Test Item Value Reference Range Interpretation Comments Albumin Lvl (test code = Albumin Lvl) 3.4 3.5-5.0 L [facility] HospitalCpiojxtEQTVEZBIH8241-13-34 06:14:00 Test Item Value Reference Range Interpretation Comments Bili Total (test code = Bili Total) 1.7 0.2-1.3 H [facility] HospitalVpcmpneSSYLVTAYY4784-22-81 06:14:00 Test Item Value Reference Range Interpretation Comments ALT (test code = ALT) 49 See_Comment N [Auto mated message] The system which ge nerated this result transmit quoc reference range : <=65. The reference range was not used to interpr et this result as marco l/abnormal. [facility] HospitalAwxiuhiZQGOQERTA2112-83-16 06:14:00 Test Item Value Reference Range Interpretation Comments Total Protein (test code = Total 7.2 6.4-8.4 N Protein) [facility] HospitalMfcskpsRHGFZMICX2223-19-26 06:14:00 Test Item Value Reference Range Interpretation Comments Alk Phos (test code = Alk Phos) 170 39-136 H [facility] HospitalCeqjaefYVLHBQVJS7399-51-57 06:14:00 Test Item Value Reference Range Interpretation Comments AST (test code = AST) 37 See_Comment N [Auto mated message] The system which ge nerated this result transmit quoc reference range : <=37. The reference range was not used to interpr et this result as marco l/abnormal. [facility] HospitalUitpwjkADHZDXGGN4517-19-92 06:14:00 Test Item Value Reference Range Interpretation Comments AGAP (test code = AGAP) 12.6 10.0-20.0 N [facility] [facility]NB[facility] 06:14:00 Test Item Value Reference Range Interpretation Comments B/C Ratio (test code = B/C Ratio) 15 6-25 N [facility]KpqvfxgBRBIJTWNZ8205-01-72 06:14:00 Test Item Value Reference Range Interpretation Comments Globulin (test code = Globulin) 3.8 2.0-4.0 N [facility]IetgcpfTHDNOCYMI7313-11-13 06:14:00 Test Item Value Reference Range Interpretation Comments A/G Ratio (test code = A/G Ratio) 0.9 0.7-1.6 N [facility]ZjzxtxpVZYBABVTLM9408-40-74 06:14:00 Test Item Value Reference Range Interpretation Comments PTT (test code = PTT) 28.9 s 22.9-35.8 N [facility] HospitalAgnjqfrTDVRXITKWV7754-45-84 06:14:00 Test Item Value Reference Range Interpretation Comments PT (test code = PT) 13.0 s 12.0-14.7 N [facility] HospitalGbnmzreEHRVOUAURY6858-06-82 06:14:00 Test Item Value Reference Range Interpretation Comments INR (test code = INR) 0.98 0.85-1.17 N [facility] HospitalJwqbeutVPZTGYZZFT0010-07-63 06:14:00 Test Item Value Reference Range Interpretation Comments WBC (test code = WBC) 15.0 3.7-10.4 H [facility] HospitalRsfitsmFPDLOSQKKJ2096-22-21 06:14:00 Test Item Value Reference Range Interpretation Comments MCH (test code = MCH) 31.4 pg 27.0-31.0 H [facility] HospitalUdjzynlPVJOYFKSZT1022-58-29 06:14:00 Test Item Value Reference Range Interpretation Comments MCV (test code = MCV) 90.5 80.0-94.0 N [facility] HospitalClqtxfbDKWOZMEPDH9683-70-65 06:14:00 Test Item Value Reference Range Interpretation Comments RBC (test code = RBC) 4.78 4.70-6.10 N [facility] HospitalOttcxelZMZYWOTWLA9115-07-88 06:14:00 Test Item Value Reference Range Interpretation Comments Hct (test code = Hct) 43.3 42.0-54.0 N [facility] HospitalNbaomivTWUUDCOTKD0969-54-98 06:14:00 Test Item Value Reference Range Interpretation Comments Hgb (test code = Hgb) 15.0 14.0-18.0 N [facility] HospitalWlkdigvXXCZOHZMGK9342-91-80 06:14:00 Test Item Value Reference Range Interpretation Comments Platelet (test code = Platelet) 427 133-450 N [facility] HospitalAejbnzmHPYBCMQYLJ0803-83-52 06:14:00 Test Item Value Reference Range Interpretation Comments MPV (test code = MPV) 6.9 7.4-10.4 L [facility] HospitalIbadskwBESJPJKEJZ7362-33-70 06:14:00 Test Item Value Reference Range Interpretation Comments MCHC (test code = MCHC) 34.7 32.0-36.0 N [facility] HospitalExadoppXMQJOBKUZZ5278-90-78 06:14:00 Test Item Value Reference Range Interpretation Comments RDW (test code = RDW) 12.6 11.5-14.5 N [facility] HospitalXqvfbeuDPIVNSISOH6709-30-45 06:14:00 Test Item Value Reference Range Interpretation Comments Monocytes # (test code 0.8 See_Comment N [Aut omated message] The = Monocytes #) system which generated this result tra nsmitted reference range : <=0.8. The reference r ana luisa was not used to int erpret this result as normal/abnormal . [facility] HospitalWxjyqnrSBYYNAQKZF6724-97-34 06:14:00 Test Item Value Reference Range Interpretation Comments Eosinophils # (test code 0.0 See_Comment N [A utomated message] The = Eosinophils #) system whic h generated this result tra nsmitted reference range : <=0.5. The reference r ana luisa was not used to int erpret this result as normal/abnormal . [facility] HospitalBlchiztQOCFWKUZXM3455-46-68 06:14:00 Test Item Value Reference Range Interpretation Comments Basophils # (test code 0.0 See_Comment N [Aut omated message] The = Basophils #) system which generated this result tra nsmitted reference range : <=0.2. The reference r ana luisa was not used to int erpret this result as normal/abnormal . [facility] HospitalTtxpypoKEBRANVLLL3105-20-35 06:14:00 Test Item Value Reference Range Interpretation Comments Lymphocytes # (test code = Lymphocytes 0.4 1.0-5.5 L #) [facility] HospitalQtldbbnCDLWFIMTTC3848-85-12 06:14:00 Test Item Value Reference Range Interpretation Comments Basophils (test code = 0.0 See_Comment N [Aut omated message] The Basophils) system which ge nerated this result tra nsmitted reference range : <=1.0. The reference r ana luisa was not used to int erpret this result as normal/abnormal . [facility] HospitalQdxkcetFYTVEGBZQR8381-22-25 06:14:00 Test Item Value Reference Range Interpretation Comments Segs-Bands # (test code = Segs-Bands #) 13.8 1.5-8.1 H [facility] HospitalLdcalwmRTYUUJTUTL7653-12-73 06:14:00 Test Item Value Reference Range Interpretation Comments Eosinophils (test code = 0.2 See_Comment N [A utomated message] The Eosinophils) system which ge nerated this result tra nsmitted reference range : <=4.0. The reference r ana luisa was not used to int erpret this result as normal/abnormal . [facility] HospitalBexaawkTTJTXCRSFG3668-81-38 06:14:00 Test Item Value Reference Range Interpretation Comments Lymphocytes (test code = Lymphocytes) 2.4 20.0-40.0 L [facility] HospitalKekzsalTLLYWFEGNW0891-50-55 06:14:00 Test Item Value Reference Range Interpretation Comments Plt Morph (test code = Normal (09/21/2011 N Plt Morph) 00:14:00) [facility] HospitalPssucwqNZKITZPHBO5798-14-20 06:14:00 Test Item Value Reference Range Interpretation Comments Segs (test code = Segs) 92.3 45.0-75.0 H [facility] HospitalYqswwclLBTZEIWZSF8147-92-67 06:14:00 Test Item Value Reference Range Interpretation Comments RBC Morph (test code = Normal (09/21/2011 N RBC Morph) 00:14:00) [facility] HospitalZtsdedkVGRAYFYPVK8182-59-59 06:14:00 Test Item Value Reference Range Interpretation Comments Monocytes (test code = Monocytes) 5.1 2.0-12.0 N [facility]SwkdxelBkmbteugutdu0321-98-64 05:46:00 Test Item Value Reference Range Interpretation Comments Culture: Blood (test code = Culture: Blood) [facility] HospitalCltikkyAtbjomfgswab9155-70-17 05:46:00 Test Item Value Reference Range Interpretation Comments Culture: Urine (test code = Culture: Urine) [facility] HospitalHxdrfzqYigvxaezbkmy6354-14-03 05:46:00 Test Item Value Reference Range Interpretation Comments Culture: Blood (test code = Culture: Blood) [facility] HospitalAypchqpXzixyuuzossq7053-58-25 05:46:00 Test Item Value Reference Range Interpretation Comments Culture: Urine (test code = Culture: Urine) [facility]EztookrUHWBBGYYCX2491-83-25 05:20:00 Test Item Value Reference Range Interpretation Comments UA Ketones (test code Negative = UA Ketones) *NA*(09/20/2011 23:20:00) [facility] HospitalRohcuetOZWGKIWHYY3324-24-98 05:20:00 Test Item Value Reference Range Interpretation Comments UA Bili (test code = Negative *NA*(09/20/2011 UA Bili) 23:20:00) [facility]PsoshmcSIWDYIPQSF3172-97-60 05:20:00 Test Item Value Reference Range Interpretation Comments UA Leuk Est (test code Trace *ABN*(09/20/2011 A = UA Leuk Est) 23:20:00) [facility] HospitalBltwuyaPRVYUJTOCH9587-91-55 05:20:00 Test Item Value Reference Range Interpretation Comments UA Nitrite (test code Negative (09/20/2011 N = UA Nitrite) 23:20:00) [facility] HospitalBklqvwgHLKSENPJKL1334-23-84 05:20:00 Test Item Value Reference Range Interpretation Comments UA Urobilinogen (test code = UA 0.2 0.1-1.0 N Urobilinogen) [facility]ONR4356[facility]-28 05:20:00 Test Item Value Reference Range Interpretation Comments UA Blood (test code = Trace *ABN*(09/20/2011 A UA Blood) 23:20:00) [facility]andIwulvgfDXPHBVEPCJ7534-01-01 05:20:00 Test Item Value Reference Range Interpretation Comments Micro? (test code = Performed (09/20/2011 N Micro?) 23:20:00) [facility]andWjfcpaaIQNLMQLHWE9152-52-37 05:20:00 Test Item Value Reference Range Interpretation Comments UA WBC (test code = UA 11-20 /HPF A WBC) *ABN*(09/20/2011 23:20:00) [facility]andVmblklbKZBLZIHZDR9671-30-43 05:20:00 Test Item Value Reference Range Interpretation Comments UA Sq Epi (test code = Rare /LPF (09/20/2011 N UA Sq Epi) 23:20:00) [facility]andZauwjjnCPMVBSPJMI5689-50-43 05:20:00 Test Item Value Reference Range Interpretation Comments UA Bacteria (test code = Few /HPF (09/20/2011 N UA Bacteria) 23:20:00) [facility]andNjttdeyMYXOEKABAG7215-30-07 05:20:00 Test Item Value Reference Range Interpretation Comments UA RBC (test None Seen See_Comment N [Automated mes [place]] code = UA RBC) (09/20/2011 The system ich 23:20:00) generated this result transmitted ref erence range: <=2. The reference range was not used to int erpret this result as normal/abnormal . [facility]AkpftgrTLRDQEVCHN2259-55-67 05:20:00 Test Item Value Reference Range Interpretation Comments UA Protein (test code Negative (09/20/2011 N = UA Protein) 23:20:00) [facility]andUmzlxdoWZIYHBABPZ4586-71-24 05:20:00 Test Item Value Reference Range Interpretation Comments UA pH (test code = UA pH) 6.5 1 5.0-8.0 N [facility]andTeewzgcDTALFEIAPM0662-44-81 05:20:00 Test Item Value Reference Range Interpretation Comments UA Glucose (test code Negative (09/20/2011 N = UA Glucose) 23:20:00) [facility]RelnifdTUBQXZNMEV4030-00-53 05:20:00 Test Item Value Reference Range Interpretation Comments UA Color (test code = Yellow *NA*(09/20/2011 UA Color) 23:20:00) [facility]andJdpdtzfVXRNXAUXTF1243-33-47 05:20:00 Test Item Value Reference Range Interpretation Comments UA Spec Grav (test code = UA Spec 1.034 1 H Grav) [facility] HospitalQeqnrxeNCYTSXNTOW5722-53-13 05:20:00 Test Item Value Reference Range Interpretation Comments UA Turbidity (test code = Clear (09/20/2011 N UA Turbidity) 23:20:00) [facility]andUmppeueRRSAYWPAIR6191-77-14 05:20:00 Test Item Value Reference Range Interpretation Comments UA Ketones (test code Negative = UA Ketones) *NA*(09/20/2011 23:20:00) [facility] HospitalTfpanlaDPBXAHSZXL7017-25-59 05:20:00 Test Item Value Reference Range Interpretation Comments UA Bili (test code = Negative *NA*(09/20/2011 UA Bili) 23:20:00) [facility]andMaesmfnHLYUPIYKIM2604-51-77 05:20:00 Test Item Value Reference Range Interpretation Comments UA Leuk Est (test code Trace *ABN*(09/20/2011 A = UA Leuk Est) 23:20:00) [facility]andIsexfkzLNIGLISESP4439-55-12 05:20:00 Test Item Value Reference Range Interpretation Comments UA Nitrite (test code Negative (09/20/2011 N = UA Nitrite) 23:20:00) [facility] HospitalGsntthaOLEJAYECIX2676-90-25 05:20:00 Test Item Value Reference Range Interpretation Comments UA Urobilinogen (test code = UA 0.2 0.1-1.0 N Urobilinogen) [facility]andJvjsmjoXZPKVEGKQU2296-30-26 05:20:00 Test Item Value Reference Range Interpretation Comments UA Blood (test code = Trace *ABN*(09/20/2011 A UA Blood) 23:20:00) [facility]andQawwbgdHXUKVWJXOK0745-69-51 05:20:00 Test Item Value Reference Range Interpretation Comments Micro? (test code = Performed (09/20/2011 N Micro?) 23:20:00) [facility]andUrkebmeUWGYXEIJAG8574-21-20 05:20:00 Test Item Value Reference Range Interpretation Comments UA WBC (test code = UA 11-20 /HPF A WBC) *ABN*(09/20/2011 23:20:00) [facility]andHxlacxgSNGRRWRNSH1327-80-68 05:20:00 Test Item Value Reference Range Interpretation Comments UA Sq Epi (test code = Rare /LPF (09/20/2011 N UA Sq Epi) 23:20:00) [facility] HospitalSqetlosYTTKJEGGDW6344-40-60 05:20:00 Test Item Value Reference Range Interpretation Comments UA Bacteria (test code = Few /HPF (09/20/2011 N UA Bacteria) 23:20:00) [facility]andMlqxrimOJYZDVUOFT2045-35-40 05:20:00 Test Item Value Reference Range Interpretation Comments UA RBC (test None Seen See_Comment N [Automated [place]] code = UA RBC) (09/20/2011 The system wh ich 23:20:00) generated this result transmitted ref erence range: <=2. The reference range was not used to int erpret this result as normal/abnormal . [facility] HospitalCfaxpatNIQEUMVFCN2673-02-19 05:20:00 Test Item Value Reference Range Interpretation Comments UA Protein (test code Negative (09/20/2011 N = UA Protein) 23:20:00) [facility]andAhmvzzhTLKTOKERVD8150-08-62 05:20:00 Test Item Value Reference Range Interpretation Comments UA pH (test code = UA pH) 6.5 1 5.0-8.0 N [facility] HospitalVjsfzapBUQCBMGZWJ8443-90-68 05:20:00 Test Item Value Reference Range Interpretation Comments UA Glucose (test code Negative (09/20/2011 N = UA Glucose) 23:20:00) [facility]andWpckqcvDAMGCKTTNM4071-91-88 05:20:00 Test Item Value Reference Range Interpretation Comments UA Color (test code = Yellow *NA*(09/20/2011 UA Color) 23:20:00) [facility] HospitalBeokzbzOMLNOJEAMP5233-21-07 05:20:00 Test Item Value Reference Range Interpretation Comments UA Spec Grav (test code = UA Spec 1.034 1 H Grav) [facility] HospitalZcbjvdlTNBHZYJNBM0480-53-93 05:20:00 Test Item Value Reference Range Interpretation Comments UA Turbidity (test code = Clear (09/20/2011 N UA Turbidity) 23:20:00) [facility]
--- NOTE | 2022-05-01 10:15 | RAD REPORT ---
EXAM DESCRIPTION: Radha Single View05/01/2022 10:04 am CLINICAL HISTORY: Chest pain COMPARISON: 2019 FINDINGS: The lungs appear clear of acute infiltrate. The heart is normal size Postsurgical changes involve chest IMPRESSION: No acute abnormalities displayed
[2022-05-01 10:17] LABS: Absolute Lymphocytes (CBC) 0.6 K/uL (0.7-4.9); Hematocrit 40.7 % (39.6-49.0); Lymphocytes % 9.5 % (15.3-44.8); MCV 92.3 fL (80-100); MPV 7.3 fL (7.6-11.3); RBC Red Blood Cell Count 4.41 M/uL (4.33-5.43)
[2022-05-01] MEDS ORDERED: NA CHLORIDE 0.9% 500 ML ONE (10:20)
[2022-05-01] MEDS ORDERED: ONDANSETRON 4 MG/2 ML VIAL ONE (10:20)
[2022-05-01] MEDS ORDERED: KETOROLAC 30 MG/ML INJ ONE (10:20)
[2022-05-01] MEDS ORDERED: METHYLPREDNISOLONE 125 MG INJ ONE (10:20)
[2022-05-01 10:35] LABS: Potassium 3.9 mmol/L (3.5-5.1); Troponin High Sensitivity 8.7 pg/mL (<58.9)
--- NOTE | 2022-05-01 11:56 | RAD REPORT ---
EXAM DESCRIPTION: CT - Head Brain Wo Cont - 05/01/2022 11:11 am CLINICAL HISTORY: Headache COMPARISON: 2011 TECHNIQUE: Computed axial tomography of the head was obtained. IV contrast was not requested. All CT scans are performed using dose optimization technique as appropriate and may include automated exposure control or mA/KV adjustment according to patient size. FINDINGS: An intracranial bleed is not seen . Moderate dilatation of the ventricles is without significant change. Cerebral atrophy is not noted No significant hypodense areas within the brain visualized No extra-axial fluid collection is noted. Atrophy of the cerebellar vermis Fluid within the sinuses/ mastoids is not seen. IMPRESSION: Stable moderate dilatation of the ventricles. This may represent normal pressure hydroce phalus and should be correlated clinically
--- NOTE | 2022-05-01 12:55 | EDPHYS ---
Physician Documentation [facility] Name: Kevin Castellon Age: 61 yrs Sex: Male : 1960 Arrival Date: 05/01/2022 Time: 09:39 Bed 7 Private MD: ED Physician Saul Sandoval HPI: 05/01 10:00 This 61 yrs old Male presents to ER via EMS with complaints of Generalized malaise, kdr headache, shortness of breath. 10:00 Patient began feeling poorly with upper respiratory symptoms yesterday. This included kdr cough and cold congestion. He took a home COVID test last night and it was positive. Patient continues to feel poorly today including headache, nausea and shortness of breath. He has not had the symptoms before. He is otherwise in his usual state of health. Onset: The symptoms/episode began/occurred yesterday. Severity of symptoms: At their worst the symptoms were mild moderate just prior to arrival, in the emergency department the symptoms are unchanged. The patient has not experienced similar symptoms in the past. The patient has not recently seen a physician. Historical: - Allergies: 09:42 Amiodarone; mb8 09:42 Sulfa (Sulfonamide Antibiotics); mb8 - Home Meds: 11:30 lisinopril 20 mg Oral tab 1 tab twice a day [Active]; isosorbide mononitrate 30 mg Oral mb8 Tb24 1 tab once daily [Active]; glimepiride 4 mg Oral tab 1 tab twice a day [Active]; clopidogrel 75 mg oral tab 1 tab once daily [Active]; metoprolol tartrate 25 mg Oral tab 1 tab once daily [Active]; tamsulosin 0.4 mg oral cap 1 cap once daily [Active]; omeprazole 40 mg Oral cpDR 1 cap once daily [Active]; atorvastatin oral [Active]; celecoxib 200 mg Oral cap 1 cap once daily [Active]; methocarbamol 750 mg Oral tab 1 tab daily [Active]; aspirin 81 mg Oral cap 1 cap once daily [Active]; Vitamin D3 oral [Active]; 11:43 Tylenol #3 Oral [Active]; atorvastatin 40 mg oral tab 1 tab once daily [Active]; mb8 - PMHx: 09:42 Diabetes - NIDDM; High Cholesterol; Hypertension; Myocardial infarction; mb8 - PSHx: 09:42 Appendectomy; B shoulder SX; hernia repair x 2; quad. bypass; mb8 - Social history:: Smoking status: Patient denies any tobacco usage or history of. ROS: 10:00 Constitutional: Negative for fever, chills, and weight loss, Eyes: Negative for injury, kdr pain, redness, and discharge, ENT: Negative for injury, pain, and discharge, Neck: Negative for injury, pain, and swelling, Cardiovascular: Negative for chest pain, palpitations, and edema, Respiratory: Negative for shortness of breath, cough, wheezing, and pleuritic chest pain, Abdomen/GI: Negative for abdominal pain, nausea, vomiting, diarrhea, and constipation, Back: Negative for injury and pain, : Negative for injury, bleeding, discharge, and swelling, MS/Extremity: Negative for injury and deformity, Skin: Negative for injury, rash, and discoloration, Psych: Negative for depression, anxiety, suicide ideation, homicidal ideation, and hallucinations, Allergy/Immunology: Negative for hives, rash, and allergies, Endocrine: Negative for neck swelling, polydipsia, polyuria, polyphagia, and marked weight changes, Hematologic/Lymphatic: Negative for swollen nodes, abnormal bleeding, and unusual bruising. 10:00 Neuro: Positive for headache, weakness, Patient has a history of hydrocephalus. He states that when he has complications with that his headache is in the back of his and occipital area. Today the headache is frontal and very mild. He denies any similarity with prior hydrocephalus complications., Negative for altered mental status, hearing loss, loss of consciousness, numbness, seizure activity, speech changes, syncope, near syncope, tingling, tinnitus, tremor, visual changes. Exam: 10:00 Constitutional: This is a well developed, well nourished patient who is awake, alert, kdr and in no acute distress. Head/Face: Normocephalic, atraumatic. Eyes: Pupils equal round and reactive to light, extra-ocular motions intact. Lids and lashes normal. Conjunctiva and sclera are non-icteric and not injected. Cornea within normal limits. Periorbital areas with no swelling, redness, or edema. ENT: Nares patent. No nasal discharge, no septal abnormalities noted. Tympanic membranes are normal and external auditory canals are clear. Oropharynx with no redness, swelling, or masses, exudates, or evidence of obstruction, uvula midline. Mucous membranes moist. Neck: Trachea midline, no thyromegaly or masses palpated, and no cervical lymphadenopathy. Supple, full range of motion without nuchal rigidity, or vertebral point tenderness. No Meningismus. Chest/axilla: Normal chest wall appearance and motion. Nontender with no deformity. No lesions are appreciated. Cardiovascular: Regular rate and rhythm with a normal S1 and S2. No gallops, murmurs, or rubs. Normal PMI, no JVD. No pulse deficits. Respiratory: Lungs have equal breath sounds bilaterally, clear to auscultation and percussion. No rales, rhonchi or wheezes noted. No increased work of breathing, no retractions or nasal flaring. Abdomen/GI: Soft, non-tender, with normal bowel sounds. No distension or tympany. No guarding or rebound. No evidence of tenderness throughout. Back: No spinal tenderness. No costovertebral tenderness. Full range of motion. Skin: Warm, dry with normal turgor. Normal color with no rashes, no lesions, and no evidence of cellulitis. MS/ Extremity: Pulses equal, no cyanosis. Neurovascular intact. Full, normal range of motion. Neuro: Awake and alert, GCS 15, oriented to person, place, time, and situation. Cranial nerves II-XII grossly intact. Motor strength 5/5 in all extremities. Sensory grossly intact. Cerebellar exam normal. Normal gait. Psych: Awake, alert, with orientation to person, place and time. Behavior, mood, and affect are within normal limits. Vital Signs: 09:39 BP 151 / 91; Pulse 82; Resp 20; Temp 99.3; Pulse Ox 94% ; Pain 2/10; mb8 10:59 BP 114 / 80; Pulse 69; Resp 20; Temp 98.6(O); Pulse Ox 97% on R/A; Pain 4/10; mb8 11:38 BP 123 / 78; Pulse 64; Resp 20; Pulse Ox 94% ; Pain 4/10; mb8 12:28 BP 134 / 66; Pulse 68; Resp 18; Pulse Ox 96% ; Pain 4/10; mb8 13:22 BP 131 / 86; Pulse 62; Resp 22; Pulse Ox 97% ; mb8 14:29 BP 122 / 67; Pulse 65; Resp 19; Temp 98.9(T); Pulse Ox 97% on R/A; Pain 2/10; mb8 MDM: 12:55 Patient medically screened. kdr 13:47 Data reviewed: vital signs, nurses notes, lab test result(s), radiologic studies. kdr Counseling: I had a detailed discussion with the patient and/or guardian regarding: the historical points, exam findings, and any diagnostic results supporting the discharge/admit diagnosis, lab results, the need to transfer to another facility. 05/01 09:52 Order name: Basic Metabolic Panel; Complete Time: 10:57 kdr 05/01 09:52 Order name: CBC with Diff; Complete Time: 10:35 kdr 05/01 09:52 Order name: Troponin HS; Complete Time: 10:57 kdr 05/01 09:52 Order name: XRAY Chest (1 view); Complete Time: 10:35 kdr 05/01 10:57 Order name: CT Head Brain wo Cont; Complete Time: 12:28 kdr 05/01 12:46 Order name: SARS RAPID; Complete Time: 13:43 dh3 05/01 09:52 Order name: EKG; Complete Time: 09:53 kdr 05/01 09:52 Order name: Cardiac monitoring; Complete Time: 09:54 kdr 05/01 09:52 Order name: EKG - Nurse/Tech; Complete Time: 09:54 kdr 05/01 09:52 Order name: IV Saline Lock; Complete Time: 09:54 kdr 05/01 09:52 Order name: Labs collected and sent; Complete Time: 10:05 kdr 05/01 09:52 Order name: O2 Per Protocol; Complete Time: 09:54 kdr 05/01 09:52 Order name: O2 Sat Monitoring; Complete Time: 09:54 kdr Administered Medications: 10:19 Drug: NS 0.9% 500 ml Route: IV; Rate: bolus; Site: right antecubital; mb8 11:00 Follow up: Response: No adverse reaction; IV Status: Completed infusion mb8 10:19 Drug: SOLU-Medrol (methylPrednisoLONE) 125 mg Route: IVP; Site: right antecubital; mb8 11:47 Follow up: Response: No adverse reaction mb8 10:20 Drug: Ketorolac 15 mg Route: IVP; Site: right antecubital; mb8 11:47 Follow up: Response: No adverse reaction mb8 10:20 Drug: Zofran (Ondansetron) 4 mg Route: IVP; Site: right antecubital; mb8 11:47 Follow up: Response: No adverse reaction; Nausea is decreased mb8 Disposition Summary: 05/01/22 12:55 Transfer Ordered Transfer Location: [facility] kdr Reason: Higher level of care kdr Condition: Fair kdr Problem: new kdr Symptoms: have improved kdr Accepting Physician: [facility] - DR Brady(05/01/22 15:17) mb8 Diagnosis - Weakness kdr - (Idiopathic) normal pressure hydrocephalus kdr - Hydrocephalus, unspecified kdr Forms: - Medication Reconciliation Form kdr - SBAR form kdr Signatures: Dispatcher [employer] EDMS Saul Sandoval MD MD kdr Wicho Quiñonez RN RN mb8 Corrections: (The following items were deleted from the chart) 12:56 12:55 [facility] kdr kdr 13:46 12:56 [facility] kdr kdr 15:17 13:46 [facility] - DR Brady kdr mb8
--- NOTE | 2022-05-01 12:55 | ER ---
Nurse's Notes [facility] Name: Kevin Castellon Age: 61 yrs Sex: Male : 1960 Arrival Date: 05/01/2022 Time: 09:39 Bed 7 Private MD: Diagnosis: Weakness;(Idiopathic) normal pressure hydrocephalus;Hydrocephalus, unspecified Presentation: 05/01 09:39 Chief complaint: Patient states: dx with Covid yesterday with home test. Today c/o mb8 weakness, chest pain, and feeling dizzy. Upon arrival to ED, patient denies feeling dizzy at this time. Rates chest pain 2/10 and burning. Also reports productiv cough. Coronavirus screen: Vaccine status: Patient reports being unvaccinated. Ebola Screen: Patient negative for fever greater than or equal to 101.5 degrees Fahrenheit, and additional compatible Ebola Virus Disease symptoms Patient denies exposure to infectious person. Patient denies travel to an Ebola-affected area in the 21 days before illness onset. No symptoms or risks identified at this time. Initial Sepsis Screen: Does the patient meet any 2 criteria? No. Patient's initial sepsis screen is negative. Does the patient have a suspected source of infection? Yes: Productive cough/pneumonia. Risk Assessment: Do you want to hurt yourself or someone else? Patient reports no desire to harm self or others. Onset of symptoms was April 30, 2022. 09:39 Method Of Arrival: EMS mb8 09:39 Acuity: HUGH 3 mb8 Triage Assessment: 09:43 General: Appears uncomfortable, Behavior is calm, cooperative, appropriate for age. mb8 Pain: Complains of pain in chest Pain does not radiate. Pain currently is 2 out of 10 on a pain scale. Quality of pain is described as burning. Historical: - Allergies: 09:42 Amiodarone; mb8 09:42 Sulfa (Sulfonamide Antibiotics); mb8 - Home Meds: 11:30 lisinopril 20 mg Oral tab 1 tab twice a day [Active]; isosorbide mononitrate 30 mg Oral mb8 Tb24 1 tab once daily [Active]; glimepiride 4 mg Oral tab 1 tab twice a day [Active]; clopidogrel 75 mg oral tab 1 tab once daily [Active]; metoprolol tartrate 25 mg Oral tab 1 tab once daily [Active]; tamsulosin 0.4 mg oral cap 1 cap once daily [Active]; omeprazole 40 mg Oral cpDR 1 cap once daily [Active]; atorvastatin oral [Active]; celecoxib 200 mg Oral cap 1 cap once daily [Active]; methocarbamol 750 mg Oral tab 1 tab daily [Active]; aspirin 81 mg Oral cap 1 cap once daily [Active]; Vitamin D3 oral [Active]; 11:43 Tylenol #3 Oral [Active]; atorvastatin 40 mg oral tab 1 tab once daily [Active]; mb8 - PMHx: 09:42 Diabetes - NIDDM; High Cholesterol; Hypertension; Myocardial infarction; mb8 - PSHx: 09:42 Appendectomy; B shoulder SX; hernia repair x 2; quad. bypass; mb8 - Social history:: Smoking status: Patient denies any tobacco usage or history of. Screenin:47 Abuse screen: Denies threats or abuse. Denies injuries from another. Nutritional mb8 screening: No deficits noted. Tuberculosis screening: No symptoms or risk factors identified. Fall Risk No fall in past 12 months (0 pts). Secondary diagnosis (15 points) IV access (20 points). Ambulatory Aid- None/Bed Rest/Nurse Assist (0 pts). Gait- Normal/Bed Rest/Wheelchair (0 pts) Mental Status- Oriented to own ability (0 pts). Total Penn Fall Scale indicates Low Risk Score (25-44 pts). Fall prevention measures have been instituted. Side Rails Up X 2 As available Patient and Family Educated on Fall Prevention Program and strategies. Assessment: 09:45 Cardiovascular: Reports chest pain, fatigue, shortness of breath, Denies diaphoresis, mb8 palpitations, Capillary refill < 3 seconds Pulses are all present. are 3+ in right radial artery and left radial artery Rhythm is sinus rhythm Chest pain is described as mild, quality is burning, is located in chest wall. Respiratory: Reports cough that is productive, Airway is patent Trachea midline Respiratory effort is even, unlabored, Respiratory pattern is regular, symmetrical, Breath sounds are clear bilaterally. GI: Patient currently denies abdominal pain, diarrhea, vomiting. 11:01 Reassessment: Patient and/or family updated on plan of care and expected duration. Pain mb8 level reassessed. Patient is alert, oriented x 3, equal unlabored respirations, skin warm/dry/pink. General: Patient's showed up and is concerned about his hydrocephalus getting worse due to not being able to walk. Patient was able to get out of the ED stretcher on his own. He walked about 20 yards round trip, slightly unsteady, but was able to maintain balance and walk on his own. Dr. Sandoval aware. Dr. Sandoval will order head CT per family request. . 12:28 Reassessment: Patient and/or family updated on plan of care and expected duration. Pain mb8 level reassessed. Patient is alert, oriented x 3, equal unlabored respirations, skin warm/dry/pink. Patient states feeling better. 14:27 General: Report given to marva. mb8 14:29 Reassessment: No changes from previously documented assessment. Patient and/or family mb8 updated on plan of care and expected duration. Pain level reassessed. Patient is alert, oriented x 3, equal unlabored respirations, skin warm/dry/pink. Vital Signs: 09:39 BP 151 / 91; Pulse 82; Resp 20; Temp 99.3; Pulse Ox 94% ; Pain 2/10; mb8 10:59 BP 114 / 80; Pulse 69; Resp 20; Temp 98.6(O); Pulse Ox 97% on R/A; Pain 4/10; mb8 11:38 BP 123 / 78; Pulse 64; Resp 20; Pulse Ox 94% ; Pain 4/10; mb8 12:28 BP 134 / 66; Pulse 68; Resp 18; Pulse Ox 96% ; Pain 4/10; mb8 13:22 BP 131 / 86; Pulse 62; Resp 22; Pulse Ox 97% ; mb8 14:29 BP 122 / 67; Pulse 65; Resp 19; Temp 98.9(T); Pulse Ox 97% on R/A; Pain 2/10; mb8 ED Course: 09:39 Patient arrived in ED. eb 09:39 Wicho Quiñonez, RN is Primary Nurse. mb8 09:42 Triage completed. mb8 09:43 Arm band placed on. mb8 09:44 Catalina called/ she would like the provider to know the patient " suffers from eb hydrocephalous and issues with his neck and spine, he was having a hard time getting up and around" Her cell is [phone] she would like to be called with any questions or concerns/ She is getting dressed and will be here shortly. 09:46 Saul Sandoval MD is Attending Physician. kdr 09:47 Patient has correct armband on for positive identification. Placed in gown. Bed in low mb8 position. Call light in reach. Side rails up X2. Client placed on continuous cardiac and pulse oximetry monitoring. NIBP monitoring applied. custom miller on. 09:47 No provider procedures requiring assistance completed. Inserted saline lock: 18 gauge mb8 in right antecubital area, using aseptic technique. 10:06 XRAY Chest (1 view) In Process Unspecified. EDMS 10:06 Initial lab(s) drawn, by me, sent to lab. mb8 11:13 CT Head Brain wo Cont In Process Unspecified. EDMS 13:02 initiated a transfer with Lamberto Shin from the [facility] Transfer [place]. 3 13:[address] Bui the neurologist quarter section ironer for [facility] with Dr. Sandoval for [facility] patient transfer consultation. 13:15 SARS RAPID Sent. mb8 13:41 connected the hospitalist quarter section ironer for [facility] with Dr. Sandoval for patient [facility] transfer consultation. 13:46 administrative approval given by Lamberto Shin Rn/ patient has been accepted to [address] Rm 717/ Dr. Mariia Brady has accepted the patient in transfer/ report to be called to the transfer center at [phone]. 15:17 Patient transferred, IV remains in place. mb8 Administered Medications: 10:19 Drug: NS 0.9% 500 ml Route: IV; Rate: bolus; Site: right antecubital; mb8 11:00 Follow up: Response: No adverse reaction; IV Status: Completed infusion mb8 10:19 Drug: SOLU-Medrol (methylPrednisoLONE) 125 mg Route: IVP; Site: right antecubital; mb8 11:47 Follow up: Response: No adverse reaction mb8 10:20 Drug: Ketorolac 15 mg Route: IVP; Site: right antecubital; mb8 11:47 Follow up: Response: No adverse reaction mb8 10:20 Drug: Zofran (Ondansetron) 4 mg Route: IVP; Site: right antecubital; mb8 11:47 Follow up: Response: No adverse reaction; Nausea is decreased mb8 Medication: 09:47 VIS not applicable for this client. mb8 Outcome: 12:55 ER care complete, transfer ordered by . kdr 15:15 Transferred by ground EMS Transfer form completed. mb8 15:15 Transferred to [facility]. 15:15 Condition: stable 15:15 Discharge instructions given to EMS, Instructed on the need for transfer. 15:15 Discharge instructions given to Report given to Marva 15:17 Patient left the ED. mb8 Signatures: Dispatcher [employer] EDMS Saul Sandoval MD MD kdr Wendy Danielson [facility] Gabriella Waters Michael RN RN mb8 Corrections: (The following items were deleted from the chart) 10:06 09:47 No provider procedures requiring assistance completed. mb8 mb8 10:06 09:47 Inserted saline lock: 20 gauge in right antecubital area, using aseptic mb8 technique. mb8
[2022-05-01 13:37] LABS: SARS-CoV-2 Antigen Rapid Res Positive (Negative)
[2022-05-01 16:40] VITALS: O2SAT 97
[2022-05-01 16:42] VITALS: BP 122/67; TEMP 98.9
--- NOTE | 2022-05-02 14:33 | EKG ---
Test Date: 2022-05-01 Test Time: 09:44:25 Industrial Waste Inspector: ROSANNA MEASUREMENT RESULTS: Intervals: Rate: 73 FL: 152 QRSD: 100 QT: 382 QTc: 420 Shipman: P: 66 FL: 152 QRS: 52 T: 69 INTERPRETIVE STATEMENTS: Normal sinus rhythm Normal ECG Compared to ECG 11/17/2018 08:35:48 Sinus bradycardia no longer present Electronically Signed On 05-02-22 14:30:39 CDT by Boby Medina
== END 2022-05-01 15:17 | disposition short-term general hospital (02) ==
LOC: ER 09:38
DX: U07.1 COVID-19 (principal); G91.2 (Idiopathic) normal pressure hydrocephalus; E11.9 Type 2 diabetes mellitus without complications; I10 Essential (primary) hypertension; Z95.1 Presence of aortocoronary bypass graft; Z88.2 Allergy status to sulfonamides; Z88.8 Allergy status to other drugs, medicaments and biological substances
CPT/HCPCS: 96361; 93005; 85025; 80048; 36415; 84484; 70450; 71045; 96375; 96374; 99285; 87811; J7040; J2930; J2405

== ENCOUNTER 2022-12-28 00:49 | Emergency (ER) | payer OTHER ==
--- OUTSIDE RECORDS SUMMARY | 2022-12-28 01:18 | XMS REPORT | Continuity of Care Document ---
:1960 Author Organization [facility] t Address [address] [facility] [address] [place] [address] Care Team Providers Name Role Phone LONDON COLE Primary Care Physician Unavailable Johnny Jain Attending Clinician Unavailable Jewels Marcos Attending Clinician Unavailable ELIDA_Huy Attending Clinician Unavailable MIKE_Sridhar Attending Clinician Unavailable Perry Bruno Attending Clinician Unavailable Hank Dominguez Attending Clinician TAMANNA LORENZO Attending Clinician Unavailable RADIOLOGY Attending Clinician Unavailable Sondra Sanchez Attending Clinician Unavailable Efraín Wing MD Attending Clinician Radiology Attending Clinician Unavailable EFRAÍN WING Attending Clinician Unavailable Doctor Unassigned, [place] Attending Clinician Unavailable SCOTT BARBOSA Attending Clinician Unavailable SCOTT BARBOSA Attending Clinician Unavailable London Cole MD Attending Clinician LONDON COLE Attending Clinician Unavailable Boy Attending Clinician Unavailable NAPOLEON VIRK Attending Clinician Unavailable Caitlyn MARTINEZ, Napoleon Shirley Attending Clinician Edi MARTINEZ, Silvia Attending Clinician Dhiraj MCKEON, Zenaida Moran Attending Clinician Unavailable SILVIA DALEY Attending Clinician Unavailable DION LUIS Attending Clinician Unavailable Jakub Gu Attending Clinician Unavailable Momo Olivia Attending Clinician Unavailable PRANAV Attending Clinician Unavailable Eliu Hernández Attending Clinician BRAD HUA Attending Clinician Unavailable Johnny Jain Admitting Clinician Unavailable Jewels Marcos Admitting Clinician Unavailable Rubia Admitting Clinician Unavailable Alyssa Admitting Clinician Unavailable Perry Bruno Admitting Clinician Unavailable ADRIANE PEREZ Admitting Clinician Unavailable Boy Admitting Clinician Unavailable NAPOLEON VIRK Admitting Clinician Unavailable Jakub Gu Admitting Clinician Unavailable PRANAV Admitting Clinician Unavailable FIOR HUA Admitting Clinician Unavailable Payers Payer Name Policy Type Policy Number Effective Date Expiration Date David CROWE [place] - [id number] [address] [facility] 00:00:00 PLAN (EPO) [facility]CS GENERIC [id number] 2021 00:00:00 [employer] - [id number] PHCS (PPO) 00:00:00 EMPLOYER DIRECT [id number] 2022 HEALTHCARE - 00:00:00 00:00:00 SURGERY PLUS PHCS PPO/POS [id number] 2021 00:00:00 [facility] [id number] 2017 00:00:00 [place] [facility] [id number] 2017 [place] (PPO) 00:00:00 Problems Condition Condition Condition Status Onset Resolution Last Treating Co mments Source Name Details Category Date Date Treatment Clinician Date Lumbosacra Lumbosacra Problem Active A zalea l l 4 Orthope spondylosi Spondylosi 00:00: di c s without s without 00 Spor ts myelopathy Myelopathy Me dicin e Displaceme Displaceme Problem Active A zalea nt of nt of 12-22 Orthope lumbar Lumbar 00:00: dic interverte Interverte 00 Sp orts bral disc bral Disc Medi fay without without e myelopathy Myelopathy Degenerati Degenerati Problem Active A zalea on of on of 12-22 Orthope lumbar Lumbar 00:00: dic interverte Interverte 00 Sp orts bral disc bral Disc Medi fay e Stenosis Stenosis Problem Active [facility]ale a of of - Orthope interverte Interverte 00:00: di c bral bral 00 Sports foramina Foramina Medici n e Spinal Spinal Problem Active Mary Jo stenosis Stenosis 3-21 Orthop e in in 00:00: dic cervical Cervical 00 Sports region Region Medicin with with e myelopathy Myelopathy 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:00: dic of left of Left 00 Sports wrist Wrist Medicin e 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:00: dic of right of Right 00 Sports wrist Wrist Medicin e NPH NPH Disease Active [facility] ([facility] pressure pressure 00:00: Medica l hydrocepha hydrocepha 00 Ce nter delia) delia) COVID-19 COVID-19 Disease [facility] 00 Center Type 2 Type 2 Disease Active Univers diabetes diabetes 03-08 ity of mellitus mellitus 00:00: [facility] JOSUE on JOSUE on Disease Active Univers CPAP CPAP 03-08 ity of 00:00: [facility] LEFT LEFT Diagnosis Active 2019-03-07 Mem oria BROKEN BROKEN 03-06 16:43:00 l WRIST WRIST 13:30: [place] Active 03/06/2019 [facility] Evan Trace NSTEMI NSTEMI Disease Recurre [facility] (non-ST (non-ST nce [facility] elevated elevated 00:00: Medica l myocardial myocardial 00 Ce nter infarction infarction ) ) RECURRENT RECURRENT Diagnosis Active 2011-10-02 Memoria FEVER FEVER 2-04 12:05:00 l PATECIA PATECIA 00:00: Active 00 09/30/2011 [facility] BACK PAIN, BACK Diagnosis Active 2011-09-30 Memoria FEVER, PAIN, 09-30 11:31:00 l NAUSEA FEVER, 00:00: NAUSEA 00 Active 09/30/2011 [facility] VOMITING VOMITING Diagnosis Active 2011-09-21 Memoria Active 09-20 01:55:00 l 09/20/2011 00:00: Shantanu duenas [address] SEPSIS SEPSIS Diagnosis Active 2011-09-25 Me moria Active 09-20 10:44:00 l 09/20/2011 00:00: Shantanu duenas [address] Headache Headache Problem Active 2011-10-03 Memoria Active 09:14:31 l Problem [place] 10/03/2011 [facility] Sepsis Sepsis Problem Active 2011-10-03 Danilo gricelda Active 09:14:31 l Problem [place] 10/03/2011 [facility] SEPTICEMIA SEPTICEMI Diagnosis Active 2011-09-25 Memoria NOS A NOS 10:44:00 l Active [facility] FEVER NOS FEVER Diagnosis Active 2011-10-02 Memoria NOS Active 12:05:00 l [facility] Sepsis Sepsis Problem Active [facility] dic Sports Medicin e Diabetes Diabetes Problem Active [facility] a mellitus Mellitus Orthop e dic Sports Medicin e Simple Simple Problem Active [facility] obesity Obesity Orthope dic Sports Medicin e Hydrocepha Hydrocepha Problem Active A zalea delia delia Orthope dic Sports Medicin e Hypertensi Hypertensi Problem Active A zalea ve ve Orthope disorder Disorder dic Sports Medicin e Cervical Cervical Problem Active [facility]ale a radiculopa Radiculopa Or thope thy thy dic Sports Medicin e Lumbar Lumbar Problem Active [facility] radiculopa Radiculopa Or thope thy thy dic Sports Medicin e Memory Memory Problem Active [facility] impairment Impairment Or thope dic Sports Medicin e Ataxia Ataxia Problem Active [facility] dic Sports Medicin e Headache Headache Problem Active [facility]ale a Orthope dic Sports Medicin e 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 Injury dic Sports Medicin e Spinal Spinal Problem Active [facility] stenosis Stenosis Orthop e in in dic cervical Cervical Sports region Region Medicin e Allergies, Adverse Reactions, Alerts Allergy Allergy Status Severity Reaction(s) Onset Inactive Treating Comm ents Source Name Type Date Date Clinician amiodaro DA Active SV ANAPHYLAXIS [facility] ne 2-10 Clear 00:00: [place] 00 Regiona [facility] AMIODARO Allergy Active High [facility] 00:[facility]: Medical 00 Center Amiodaro Drug Active [facility] ne Allergy 9[facility]05 [facility] 00:00: Medical 00 Center AMIODARO DRUG Active High Rash Univers NE INGREDI 7-13 ity of 00:00: [place] 00 [facility] CLOPIDOG DRUG Active High Rash Univers REL INGREDI 7-13 ity of 00:00: [place] [address] [facility] Amiodaro Propensi Active Swelling Univ ers ne ty to 7-13 ity of adverse 00:00: [place] reaction 00 [facility] Clopidog Propensi Active Swelling Univ ers rel ty to 7-13 ity of adverse 00:00: [place] reaction 00 [facility] Sulfa DA Active SV JAUNDICE [facility] (Sulfona 5-21 Clear mide 00:00: [place] Antibiot 00 Region ics) [facility] Sulfa DA Active SV [facility] (Sulfona 5-21 West mide 00:00: [place] Antibiot 00 Medical ics) Center SULFA Allergy Active High Other [facility] (SULFONA 2-04 MIDE 00:00: ANTIBIOT 00 ICS) Sulfa Drug Active Other (See Liver [facility] (Sulfona Allergy Comments) 2-04 failure Leonidas es mide 00:00: Medical Antibiot 00 Center ics) SULFA Drug Active High Unknown-Cmnt Univ ers (SULFONA Class 2-04 ity of MIDE 00:00: [place] ANTIBIOT 00 Medical ICS) Branch Sulfa Drug Active Other (See Liver [facility] (Sulfona Allergy Comments) 2-04 failure Leonidas es mide 00:00: Medical Antibiot 00 Center ics) Salicyla DA Active U [facility] malgorzata - Clear 00:00: [place] 00 [facility] Pyrazolo DA Active U [facility] nicci 02-15 Clear 00:00: [place] 00 [facility] NSAIDS DA Active U [facility] (Non-Daljit 02-15 Clear roidal 00:00: [place] Anti-Inf 00 [facility] diclofen DA Active U [facility] ac 02-15 Clear 00:00: [place] 00 [facility] NO KNOWN Drug Active Univers ALLERGIE Class ity of S [facility] No Known No Known Active Memori a Medicati Medicati l on on Allergie Allergie s s Social History Social Habit Start Date Stop Date Quantity Comments Source History SDMT [facility] Alcohol Std Medical Cente r Drinks History [facility] Alcohol Binge Medical Omayra ter History [facility] Transport Non-Med Medical Center History [facility] Alcohol Comment Medical C enter History of Snuff User [facility] tobacco use Medical Cente r Exposure to Yes University of SARS-CoV-2 [facility] (event) Branch History [facility] 2022-05-02 2022-05-[address] [facility] Housing Places 00:00:00 00:00:00 Medical Ce nter Lived History [facility] 2022-05-01 2022-05-[address] [facility] Transport Med 00:00:00 00:00:[address] History [facility] 2022-05-01 2022-05-[address] [facility] Housing Unable to 00:00:00 00:00:00 Medical Center Pay History [facility] 2022-05-01 2022-05-[address] [facility] Housing Homeless 00:00:00 00:00:00 Medical Center Last Year Alcohol intake 2018-10-02 2018-10-[address] [facility] es 00:00:00 00:00:00 non-drinker of Medical Ce nter alcohol (finding) History [facility] 2018-09-30 2018-09-[address] [facility] Alcohol Frequency 00:00:00 00:00:00 Medical Center Tobacco use and 2018-09-30 2018-09-[address] [facility] exposure 00:00:00 00:00:00 tobacco user Medical Cent er Sex Ass[birth year] At [birth year] KENNEDI [place] 00:00:00 00:00:00 Medical Center Smoking Status Start Date Stop Date Source Never Smoker [facility] ambrocio [facility] Tobacco smoking status [facility] Medications Ordered Filled Start Stop Current Ordering Indication Dosage Frequency Signature Comments Components Source Medication Medication Date Date Medication? Clinician (SIG) Name Name insulin Yes type 2 18U QD Inject [facility] glargine 05-05 diabetes 18-25 [facility] (LANTUS, 14:51: mellitus Units Medi sonal SEMGLEE) 01 subcutaneo Cente r 100 unit/mL usly every (3 mL) InPn morning Basaglar . isosorbide 0 Yes 30mg QD Take [address] mononitrate 05-05 by mouth Luke s (IMDUR) 30 14:51: daily. Medic al MG 24 hr 01 Center tablet clopidogreL Yes 75mg QD Take [address] (PLAVIX) 75 -09 by mouth Luke s mg tablet 14:51: daily. Medica l 01 Center metoprolol Yes 12.5mg Q.5D Take 12.[address] tartrate 9-09 mg by [facility]ukes (LOPRESSOR) 14:51: mouth 2 Med ical 25 MG 01 (two) Center tablet times daily. atorvastati Yes 40mg QD Take [address] [facility] n (LIPITOR) 05-05 by mouth Luke s 40 MG 14:51: daily Medical tablet 01 Instructed Center not to take while on Paxlovid . acetaminoph 0 Yes 1{tbl} Take [address] en-codeine 9-09 tablet by Luashley s (TYLENOL 14:51: mouth Medical #4) 300-60 01 every 4 Center mg per (four) tablet hours as needed for Pain. methocarbam 0 Yes 750mg Take [address] oL 9-09 mg by [facility] (ROBAXIN) 14:51: mouth 4 Medic al 750 MG 01 (four) Center tablet times daily as needed. aspirin 81 2022-0 Yes 81mg QD Take [address] MG EC 05-05 by mouth [facility] tablet 14:51: daily. Medical 01 Center cholecalcif Yes 1000U QD Take 1,[address] saray - Units by [place]win (VITAMIN 14:51: mouth Medical D3) 25 mcg 01 daily Center (1,000 Vitamin D unit) + K . tablet insulin Yes type 2 18U QD Inject [facility] glargine 05-05 diabetes 18-25 Ora (LANTUS, 14:51: mellitus Units Medi [facility]) 01 subcutaneo Cente r 100 unit/mL usly every (3 mL) InPn morning Basaglar . isosorbide Yes 30mg QD Take [address] mononitrate 05-05 by mouth Luke s (IMDUR) 30 14:51: daily. Medic al MG 24 hr 01 Center tablet clopidogreL Yes 75mg QD Take [address] (PLAVIX) 75 05-05 by mouth Luke s mg tablet 14:51: daily. Medica l 01 Center metoprolol Yes 12.5mg Q.5D Take 12.[address] tartrate 9-09 mg by [facility]ukes (LOPRESSOR) 14:51: mouth 2 Med ical 25 MG 01 (two) Center tablet times daily. atorvastati Yes 40mg QD Take [address] [facility] n (LIPITOR) 05-05 by mouth Luke s 40 MG 14:51: daily Medical tablet 01 Instructed Center not to take while on Paxlovid . acetaminoph Yes 1{tbl} Take [address] en-codeine 05-05 tablet by Dave s (TYLENOL 14:51: mouth Medical #4) 300-60 01 every 4 Center mg per (four) tablet hours as needed for Pain. methocarbam Yes 750mg Take [address] oL 9-09 mg by [place] (ROBAXIN) 14:51: mouth 4 Medic al 750 MG 01 (four) Center tablet times daily as needed. aspirin 81 Yes 81mg QD Take [address] MG EC 05-05 by mouth [facility] tablet 14:51: daily. Medical 01 Center cholecalcif 2022-0 Yes 1000U QD Take 1,[address] saray 9-09 Units by Ora (VITAMIN 14:51: mouth Medical D3) 25 mcg 01 daily Center (1,000 Vitamin D unit) + K . tablet insulin Yes type 2 18U QD Inject [facility] glargine 05-05 diabetes 18-25 Ora (LANTUS, 14:51: mellitus Units Medi sonal SEMGLEE) 01 subcutaneo Cente r 100 unit/mL usly every (3 mL) InPn morning Basaglar . isosorbide 0 Yes 30mg QD Take [address] mononitrate 05-05 by mouth Luke s (IMDUR) 30 14:51: daily. Medic al MG 24 hr 01 Center tablet clopidogreL Yes 75mg QD Take [address] (PLAVIX) 75 05-05 by mouth Luke s mg tablet 14:51: daily. Medica l 01 Center metoprolol Yes 12.5mg Q.5D Take 12.[address] tartrate 9-09 mg by Ora (LOPRESSOR) 14:51: mouth 2 Med ical 25 MG 01 (two) Center tablet times daily. atorvastati Yes 40mg QD Take [address] [facility] n (LIPITOR) 05-05 by mouth Luke s 40 MG 14:51: daily Medical tablet 01 Instructed Center not to take while on Paxlovid . acetaminoph Yes 1{tbl} Take [address] en-codeine 05-05 tablet by Dave miranda (TYLENOL 14:51: mouth Medical #4) 300-60 01 every 4 Center mg per (four) tablet hours as needed for Pain. methocarbam Yes 750mg Take [address] oL 9-09 mg by Ora (ROBAXIN) 14:51: mouth 4 Medic al 750 MG 01 (four) Center tablet times daily as needed. aspirin 81 0 Yes 81mg QD Take [address] MG EC -09 by mouth [facility]ukes tablet 14:51: daily. Medical 01 Center cholecalcif 0 Yes 1000U QD Take 1,[address] saray 9-09 Units by Ora (VITAMIN 14:51: mouth Medical D3) 25 mcg 01 daily Center (1,000 Vitamin D unit) + K . tablet insulin 2021- No type 2 Inject [facility] aspart 05-05 diabetes subcutaneo Kate kes protamine-i 14:51: 00:00 mellitus usly 3 Medical nsulin 01 :00 (three) Center aspart times (NovoLOG daily MIX 70/30) before 100 unit/mL meals. (70-30) Soln injection insulin 2021- No type 2 Inject [facility] aspart 05-05 diabetes subcutaneo Kate kes protamine-i 14:51: 00:00 mellitus usly 3 Medical nsulin 01 :00 (three) Center aspart times (NovoLOG daily MIX 70/30) before 100 unit/mL meals. (70-30) Soln injection insulin 2021- No type 2 Inject [facility] aspart 05-05 diabetes subcutaneo Kate kes protamine-i 14:51: 00:00 mellitus usly 3 Medical nsulin 01 :00 (three) Center aspart times (NovoLOG daily MIX 70/30) before 100 unit/mL meals. (70-30) Soln injection lisinopril 0 Yes 20mg Q.5D Take [address] (PRINIVIL,Z 05-04 by mouth 2 Kate kes ESTRIL) 5 14:51: (two) Medical MG tablet 19 times Center daily . omeprazole Yes 40mg QD Take [address] (PRILOSEC) 08 by mouth [facility]ukes 40 MG 14:51: daily. Medical capsule 19 Center glimepiride 0 Yes 4mg Q.5D Take [address] (AMARYL) 1 9-08 by mouth 2 Leonidas es MG tablet 14:51: (two) Medical 19 times Center daily . tamsulosin 0 Yes .4mg QD Take 0.[address] (FLOMAX) 9-08 mg by [facility] 0.4 mg Cap 14:51: mouth Medica l 24 hr 19 daily. Center capsule levocetiriz 0 Yes 5mg QD Take [address] ine (XYZAL) 08 by mouth Luke s 5 MG tablet 14:51: every Medic al 19 evening. Center celecoxib 2021-0 Yes 200mg Take [address] [facility] (CELEBREX) 9-08 mg by [facility] 200 MG 14:51: mouth Medical capsule 19 every 12 Center (twelve) hours as needed for Pain. lisinopril 2022-0 Yes 20mg Q.5D Take [address] (PRINIVIL,Z 9-08 by mouth 2 Kate kes ESTRIL) 5 14:51: (two) Medical MG tablet 19 times Center daily . omeprazole 2022-0 Yes 40mg QD Take [address] (PRILOSEC) 9-08 by mouth [facility] 40 MG 14:51: daily. Medical capsule 19 Center glimepiride 2022-0 Yes 4mg Q.5D Take [address] (AMARYL) 1 9-08 by mouth 2 Leonidas es MG tablet 14:51: (two) Medical 19 times Center daily . tamsulosin 2022-0 Yes .4mg QD Take 0.[address] (FLOMAX) 9-08 mg by [facility]ukes 0.4 mg Cap 14:51: mouth Medica l 24 hr 19 daily. Center capsule levocetiriz 2-0 Yes 5mg QD Take [address] ine (XYZAL) 9-08 by mouth Luke s 5 MG tablet 14:51: every Medic al 19 evening. Center celecoxib 2-0 Yes 200mg Take [address] (CELEBREX) 9-08 mg by [facility] 200 MG 14:51: mouth Medical capsule 19 every 12 Center (twelve) hours as needed for Pain. lisinopril 2022-0 Yes 20mg Q.5D Take [address] (PRINIVIL,Z 9-08 by mouth 2 Kate kes ESTRIL) 5 14:51: (two) Medical MG tablet 19 times Center daily . omeprazole 2022-0 Yes 40mg QD Take [address] (PRILOSEC) 9-08 by mouth [facility] 40 MG 14:51: daily. Medical capsule 19 Center glimepiride 2022-0 Yes 4mg Q.5D Take [address] (AMARYL) 1 9-08 by mouth 2 Leonidas es MG tablet 14:51: (two) Medical 19 times Center daily . tamsulosin 2022-0 Yes .4mg QD Take 0.[address] (FLOMAX) 9-08 mg by [facility]ukes 0.4 mg Cap 14:51: mouth Medica l 24 hr 19 daily. Center capsule levocetiriz 2021-0 Yes 5mg QD Take [address] ine (XYZAL) 9-08 by mouth Luke s 5 MG tablet 14:51: every Medic al 19 evening. Center celecoxib 2021-0 Yes 200mg Take [address] (CELEBREX) 9-08 mg by [facility] 200 MG 14:51: mouth Medical capsule 19 every 12 Center (twelve) hours as needed for Pain. amLODIPine 2021-0 2- No 10mg QD Take [address] [facility] (NORVASC) 05-04 by mouth [facility] 10 MG 11:43: 00:00 daily. Medical tablet 56 :00 Center amLODIPine 2021-0 2021- No 10mg QD Take [address] (NORVASC) 05-04 by mouth [facility] 10 MG 11:43: 00:00 daily. Medical tablet 56 :00 Center amLODIPine 2021-0 2021- No 10mg QD Take [address] (NORVASC) 05-04 by mouth [facility]ukes 10 MG 11:43: 00:00 daily. Medical tablet 56 :00 Center benzonatate 2-0 Yes 100mg Take [address] [facility] (TESSALON) 9-08 capsule [facility] 100 MG 00:00: (100 mg Medical capsule 00 total) by Center mouth 3 (three) times daily as needed for Cough. benzonatate 2-0 Yes 100mg Take [address] [facility] (TESSALON) 9-08 capsule [facility] 100 MG 00:00: (100 mg Medical capsule 00 total) by Center mouth 3 (three) times daily as needed for Cough. benzonatate 2-0 Yes 100mg Take [address] [facility] (TESSALON) 9-08 capsule [facility] 100 MG 00:00: (100 mg Medical capsule 00 total) by Center mouth 3 (three) times daily as needed for Cough. guaiFENesin 2-0 2021- No 600mg Q.5D Take [address] (mucINEX) 05-0415 tablet [facility] 600 mg 12 00:00: 23:59 (600 mg Medi sonal hr tablet 00 :00 total) by Cente r mouth 2 (two) times daily for 7 days. guaiFENesin 2022-0 2- No 600mg Q.5D Take [address] (mucINEX) 05-04-15 tablet [facility] 600 mg 12 00:00: 23:59 (600 mg Medi sonal hr tablet 00 :00 total) by Cente r mouth 2 (two) times daily for 7 days. guaiFENesin 2021- No 600mg Q.5D Take [address] (mucINEX) 05-04-15 tablet [facility] 600 mg 12 00:00: 23:59 (600 mg Medi sonal hr tablet 00 :00 total) by Cente r mouth 2 (two) times daily for 7 days. Paxlovid, 2021- No 2{tbl} Q.5D Take [address] [facility] EUA, 04-30-08 tablets by [facility] 150-100 mg 00:00: 00:00 mouth 2 Med ical DsPk 00 :00 (two) Center times daily. Paxlovid, 2021- No 2{tbl} Q.5D Take [address] [facility] EUA, 04-30-08 tablets by [facility] 150-100 mg 00:00: 00:00 mouth 2 Med ical DsPk 00 :00 (two) Center times daily. Paxlovid, 2021- No 2{tbl} Q.5D Take [address] EUA, 04-30-08 tablets by [facility] 150-100 mg 00:00: 00:00 mouth 2 Med ical DsPk 00 :00 (two) Center times daily. insulin Yes 4U [id number] Inject [address] aspart 8-17 [id number] Units [facility]ukes U-100 00:00: 3D subcutaneo Medica l (NovoLOG) 00 usly 3 Center 100 unit/mL (three) (3 mL) InPn times daily. insulin Yes 4U [id number] Inject [address] aspart 8-17 [id number] Units [facility]ukes U-100 00:00: 3D subcutaneo Medica l (NovoLOG) 00 usly 3 Center 100 unit/mL (three) (3 mL) InPn times daily. insulin Yes 4U [id number] Inject [address] aspart 8-17 [id number] Units [facility] U-100 00:00: 3D subcutaneo Medica l (NovoLOG) 00 usly 3 Center 100 unit/mL (three) (3 mL) InPn times daily. lisinopril 0 Yes TAKE 1 Memor ia 20 mg oral 6-24 TABLET BY l tablet 16:52: MOUTH [place] 00 TWICE A DAY FOR 90 DAYS nitroglycer 0 Yes PLEASE SEE Memoria in 0.4 mg 6-24 ATTACHED l sublingual 16:52: FOR [place] tablet 00 DETAILED DIRECTIONS lisinopril 2021-0 Yes TAKE 1 Memor ia 20 mg oral 6-24 TABLET BY l tablet 16:52: MOUTH [place] 00 TWICE A DAY FOR 90 DAYS nitroglycer 0 Yes PLEASE SEE Memoria in 0.4 mg 6-24 ATTACHED l sublingual 16:52: FOR tablet 00 DETAILED DIRECTIONS lisinopril 0 Yes TAKE 1 Memor ia 20 mg oral 6-24 TABLET BY l tablet 16:52: MOUTH 00 TWICE A DAY FOR 90 DAYS nitroglycer 2021-0 Yes PLEASE SEE Memoria in 0.4 mg 6-24 ATTACHED l sublingual 16:52: FOR [place] tablet 00 DETAILED DIRECTIONS lisinopril 0 Yes TAKE 1 Memor ia 20 mg oral 6-24 TABLET BY l tablet 16:52: MOUTH 00 TWICE A DAY FOR 90 DAYS nitroglycer 2021-0 Yes PLEASE SEE Memoria in 0.4 mg 6-24 ATTACHED l sublingual 16:52: FOR tablet 00 DETAILED DIRECTIONS lisinopril lisinopril No lisinopril Mary Jo 20 mg 20 mg 6-24 20 mg Orthope tablet TAKE tablet TAKE 00:00: tablet dic 1 TABLET BY 1 TABLET BY 00 TAKE 1 Sports MOUTH TWICE MOUTH TWICE TABLET BY Medicin A DAY FOR A DAY FOR MOUTH e 90 DAYS 90 DAYS TWICE A DAY FOR 90 DAYS nitroglycer nitroglycer 0 No nitroglyce Mary Jo in 0.4 mg in 0.4 mg 6-24 rin 0.4 mg Orthope sublingual sublingual 00:00: sublingual dic tablet tablet 00 tablet Sports PLEASE SEE PLEASE SEE PLEASE SEE Medicin ATTACHED ATTACHED ATTACHED e FOR FOR FOR DETAILED DETAILED DETAILED DIRECTIONS DIRECTIONS DIRECTIONS lisinopril lisinopril 0 No lisinopril Mary Jo 20 mg 20 mg 6-24 20 mg Orthope tablet TAKE tablet TAKE 00:00: tablet dic 1 TABLET BY 1 TABLET BY 00 TAKE 1 Sports MOUTH TWICE MOUTH TWICE TABLET BY Medicin A DAY FOR A DAY FOR MOUTH e 90 DAYS 90 DAYS TWICE A DAY FOR 90 DAYS nitroglycer nitroglycer 0 No nitroglyce Mary Jo in 0.4 mg in 0.4 mg 6-24 rin 0.4 mg Orthope sublingual sublingual 00:00: sublingual dic tablet tablet 00 tablet Sports PLEASE SEE PLEASE SEE PLEASE SEE Medicin ATTACHED ATTACHED ATTACHED e FOR FOR FOR DETAILED DETAILED DETAILED DIRECTIONS DIRECTIONS DIRECTIONS lisinopril lisinopril 0 No lisinopril Mary Jo 20 mg 20 mg 6-24 20 mg Orthope tablet TAKE tablet TAKE 00:00: tablet dic 1 TABLET BY 1 TABLET BY 00 TAKE 1 Sports MOUTH TWICE MOUTH TWICE TABLET BY Medicin A DAY FOR A DAY FOR MOUTH e 90 DAYS 90 DAYS TWICE A DAY FOR 90 DAYS nitroglycer nitroglycer 2021-0 No nitroglyce Mary Jo in 0.4 mg in 0.4 mg 6-24 rin 0.4 mg Orthope sublingual sublingual 00:00: sublingual dic tablet tablet 00 tablet Sports PLEASE SEE PLEASE SEE PLEASE SEE Medicin ATTACHED ATTACHED ATTACHED e FOR FOR FOR DETAILED DETAILED DETAILED DIRECTIONS DIRECTIONS DIRECTIONS lisinopril lisinopril 2021-0 No lisinopril Mary Jo 20 mg 20 mg 6-24 20 mg Orthope tablet TAKE tablet TAKE 00:00: tablet dic 1 TABLET BY 1 TABLET BY 00 TAKE 1 Sports MOUTH TWICE MOUTH TWICE TABLET BY Medicin A DAY FOR A DAY FOR MOUTH e 90 DAYS 90 DAYS TWICE A DAY FOR 90 DAYS nitroglycer nitroglycer 2021-0 No nitroglyce Mary Jo in 0.4 mg in 0.4 mg 6-24 rin 0.4 mg Orthope sublingual sublingual 00:00: sublingual dic tablet tablet 00 tablet Sports PLEASE SEE PLEASE SEE PLEASE SEE Medicin ATTACHED ATTACHED ATTACHED e FOR FOR FOR DETAILED DETAILED DETAILED DIRECTIONS DIRECTIONS DIRECTIONS lisinopril lisinopril 2021-0 No lisinopril [facility] Jo 20 mg 20 mg 6-24 20 mg [facility] tablet TAKE tablet TAKE 00:00: tablet dic 1 TABLET BY 1 TABLET BY 00 TAKE 1 Sports MOUTH TWICE MOUTH TWICE TABLET BY Medicin A DAY FOR A DAY FOR MOUTH e 90 DAYS 90 DAYS TWICE A DAY FOR 90 DAYS nitroglycer nitroglycer 2021-0 No nitroglyce [facility] Jo in 0.4 mg in 0.4 mg 6-24 rin 0.4 mg [facility] sublingual sublingual 00:00: sublingual dic tablet tablet 00 tablet Sports PLEASE SEE PLEASE SEE PLEASE SEE Medicin ATTACHED ATTACHED ATTACHED e FOR FOR FOR DETAILED DETAILED DETAILED DIRECTIONS DIRECTIONS DIRECTIONS lisinopril lisinopril 2021-0 No lisinopril [facility] 20 mg 20 mg 6-24 20 mg [facility] tablet TAKE tablet TAKE 00:00: tablet dic 1 TABLET BY 1 TABLET BY 00 TAKE 1 Sports MOUTH TWICE MOUTH TWICE TABLET BY Medicin A DAY FOR A DAY FOR MOUTH e 90 DAYS 90 DAYS TWICE A DAY FOR 90 DAYS nitroglycer nitroglycer 2021-0 No nitroglyce [facility] in 0.4 mg in 0.4 mg 6-24 rin 0.4 mg [facility] sublingual sublingual 00:00: sublingual dic tablet tablet 00 tablet Sports PLEASE SEE PLEASE SEE PLEASE SEE Medicin ATTACHED ATTACHED ATTACHED e FOR FOR FOR DETAILED DETAILED DETAILED DIRECTIONS DIRECTIONS DIRECTIONS lisinopril lisinopril 2021-0 No lisinopril [facility] 20 mg 20 mg 6-24 20 mg [facility] tablet TAKE tablet TAKE 00:00: tablet dic 1 TABLET BY 1 TABLET BY 00 TAKE 1 Sports MOUTH TWICE MOUTH TWICE TABLET BY Medicin A DAY FOR A DAY FOR MOUTH e 90 DAYS 90 DAYS TWICE A DAY FOR 90 DAYS nitroglycer nitroglycer 2021-0 No nitroglyce [facility] in 0.4 mg in 0.4 mg 6-24 rin 0.4 mg [facility] sublingual sublingual 00:00: sublingual dic tablet tablet 00 tablet Sports PLEASE SEE PLEASE SEE PLEASE SEE Medicin ATTACHED ATTACHED ATTACHED e FOR FOR FOR DETAILED DETAILED DETAILED DIRECTIONS DIRECTIONS DIRECTIONS lisinopril lisinopril 2021-0 No lisinopril Mayr Jo 20 mg 20 mg 6-24 20 mg [facility] tablet TAKE tablet TAKE 00:00: tablet dic 1 TABLET BY 1 TABLET BY 00 TAKE 1 Sports MOUTH TWICE MOUTH TWICE TABLET BY Medicin A DAY FOR A DAY FOR MOUTH e 90 DAYS 90 DAYS TWICE A DAY FOR 90 DAYS nitroglycer nitroglycer 2021-0 No nitroglyce [facility] in 0.4 mg in 0.4 mg 6-24 rin 0.4 mg [facility] sublingual sublingual 00:00: sublingual dic tablet tablet 00 tablet Sports PLEASE SEE PLEASE SEE PLEASE SEE Medicin ATTACHED ATTACHED ATTACHED e FOR FOR FOR DETAILED DETAILED DETAILED DIRECTIONS DIRECTIONS DIRECTIONS nitroglycer nitroglycer 2021-0 No nitroglyce [facility] in 0.4 mg in 0.4 mg 6-24 rin 0.4 mg [facility] sublingual sublingual 00:00: sublingual dic tablet tablet 00 tablet Sports PLEASE SEE PLEASE SEE PLEASE SEE Medicin ATTACHED ATTACHED ATTACHED e FOR FOR FOR DETAILED DETAILED DETAILED DIRECTIONS DIRECTIONS DIRECTIONS nitroglycer nitroglycer 0 No nitroglyce [facility] in 0.4 mg in 0.4 mg 6-24 rin 0.4 mg [facility] sublingual sublingual 00:00: sublingual dic tablet tablet 00 tablet Sports PLEASE SEE PLEASE SEE PLEASE SEE Medicin ATTACHED ATTACHED ATTACHED e FOR FOR FOR DETAILED DETAILED DETAILED DIRECTIONS DIRECTIONS DIRECTIONS nitroglycer nitroglycer 0 No nitroglyce [facility] in 0.4 mg in 0.4 mg 6-24 rin 0.4 mg [facility] sublingual sublingual 00:00: sublingual dic tablet tablet 00 tablet Sports PLEASE SEE PLEASE SEE PLEASE SEE Medicin ATTACHED ATTACHED ATTACHED e FOR FOR FOR DETAILED DETAILED DETAILED DIRECTIONS DIRECTIONS DIRECTIONS lisinopril lisinopril 0 No lisinopril [facility] 20 mg 20 mg 6-24 20 mg [facility] tablet TAKE tablet TAKE 00:00: tablet dic 1 TABLET BY 1 TABLET BY 00 TAKE 1 Sports MOUTH TWICE MOUTH TWICE TABLET BY Medicin A DAY FOR A DAY FOR MOUTH e 90 DAYS 90 DAYS TWICE A DAY FOR 90 DAYS nitroglycer nitroglycer 2021-0 No nitroglyce [facility] in 0.4 mg in 0.4 mg 6-24 rin 0.4 mg [facility] sublingual sublingual 00:00: sublingual dic tablet tablet 00 tablet Sports PLEASE SEE PLEASE SEE PLEASE SEE Medicin ATTACHED ATTACHED ATTACHED e FOR FOR FOR DETAILED DETAILED DETAILED DIRECTIONS DIRECTIONS DIRECTIONS lisinopril lisinopril 2021-0 No lisinopril [facility] 20 mg 20 mg 6-24 20 mg [facility] tablet TAKE tablet TAKE 00:00: tablet dic 1 TABLET BY 1 TABLET BY 00 TAKE 1 Sports MOUTH TWICE MOUTH TWICE TABLET BY Medicin A DAY FOR A DAY FOR MOUTH e 90 DAYS 90 DAYS TWICE A DAY FOR 90 DAYS nitroglycer nitroglycer 2021-0 No nitroglyce [facility] in 0.4 mg in 0.4 mg 6-24 rin 0.4 mg [facility] sublingual sublingual 00:00: sublingual dic tablet tablet 00 tablet Sports PLEASE SEE PLEASE SEE PLEASE SEE Medicin ATTACHED ATTACHED ATTACHED e FOR FOR FOR DETAILED DETAILED DETAILED DIRECTIONS DIRECTIONS DIRECTIONS isosorbide 2021-0 Yes 30 mg = 1 Me moria mononitrate 4-21 tab, PO, l 30 mg oral 14:20: QAM, # 90 [facility] tablet, 00 tab, 3 extended Refill(s) release Levemir 2021-0 Yes SUB-Q, 0 Memori a 4-21 Refill(s) l 14:20: [place] Vitamin D3 2021-0 Yes 0 Memoria 4-21 Refill(s) l 14:20: [place] 00 multivitami 0 Yes Daily, 0 Me moria n 4-21 Refill(s) l 14:20: [place] 00 isosorbide 2021-0 Yes 30 mg = 1 Me moria mononitrate 4-21 tab, PO, l 30 mg oral 14:20: QAM, # 90 [facility] tablet, 00 tab, 3 extended Refill(s) release Levemir 2021-0 Yes SUB-Q, 0 Memori a 4-21 Refill(s) l 14:20: [place] 00 Vitamin D3 2021-0 Yes 0 Memoria 4-21 Refill(s) l 14:20: [place] multivitami 2021-0 Yes Daily, 0 Me moria n 4-21 Refill(s) l 14:20: [place] 00 isosorbide 2021-0 Yes 30 mg = 1 Me moria mononitrate 4-21 tab, PO, l 30 mg oral 14:20: QAM, # 90 [facility] tablet, 00 tab, 3 extended Refill(s) release Levemir 2021-0 Yes SUB-Q, 0 Memori a 4-21 Refill(s) l 14:20: [place] Vitamin D3 2021-0 Yes 0 Memoria 4-21 Refill(s) l 14:20: [place] 00 multivitami 2021-0 Yes Daily, 0 Me moria n 4-21 Refill(s) l 14:20: [place] 00 isosorbide 2021-0 Yes 30 mg = 1 Me moria mononitrate 4-21 tab, PO, l 30 mg oral 14:20: QAM, # 90 [facility] tablet, 00 tab, 3 extended Refill(s) release Levemir Yes SUB-Q, 0 Memori a 4-21 Refill(s) l 14:20: Vitamin D3 0 Yes 0 Memoria 4-21 Refill(s) l 14:20: multivitami 0 Yes Daily, 0 Me moria [...] # 00 90 tab, 3 Refill(s) clopidogrel Yes 75 mg = 1 M emoria 75 mg oral 4-21 tab, PO, l tablet 14:19: Daily, # 00 90 tab, 3 Refill(s) clopidogrel clopidogrel No 75mg clopidogre [facility] 75 mg 75 mg 4-21 l 75 mg [facility] tablet 75 tablet 75 00:00: tablet 75 dic mg by oral mg by oral 00 mg by oral Sports route. route. route. Medicin e isosorbide isosorbide No 30mg isosorbide [facility] mononitrate mononitrate 12-15 mononitrat [facility] ER 30 mg ER 30 mg 00:00: e ER 30 mg dic tablet,exte tablet,exte 00 tablet,ext Sports nded nded ended Medicin release 24 release 24 release 24 e hr 30 mg by hr 30 mg by hr 30 mg oral route. oral route. by oral route. Levemir Levemir No Levemir Azal ea U-100 U-100 4-21 U-100 [facility] Insulin Insulin 00:00: Insulin dic SUB-Q, 0 SUB-Q, 0 00 SUB-Q, 0 Spo rts Refill(s) Refill(s) Refill(s) Medicin e clopidogrel clopidogrel 0 No clopidogre [facility] 75 mg 75 mg 4-21 l 75 mg [facility] tablet TAKE tablet TAKE 00:00: tablet dic 1 TABLET BY 1 TABLET BY 00 TAKE 1 Sports MOUTH EVERY MOUTH EVERY TABLET BY Medicin DAY FOR 90 DAY FOR 90 MOUTH e DAYS DAYS EVERY DAY FOR 90 DAYS isosorbide isosorbide 2021-0 No isosorbide [facility] mononitrate mononitrate 4-21 mononitrat [facility] ER 30 mg ER 30 mg 00:00: e ER 30 mg dic tablet,exte tablet,exte 00 tablet,ext Sports nded nded ended Medicin release 24 release 24 release 24 e hr TAKE 1 hr TAKE 1 hr TAKE 1 TABLET BY TABLET BY TABLET BY MOUTH IN MOUTH IN MOUTH IN THE MORNING THE MORNING THE MORNING Levemir Levemir 0 No Levemir Azal ea U-100 U-100 4-21 U-100 [facility] Insulin Insulin 00:00: Insulin dic Sports Medicin e clopidogrel clopidogrel No clopidogre [facility] 75 mg 75 mg 4-21 l 75 mg [facility] tablet TAKE tablet TAKE 00:00: tablet dic 1 TABLET BY 1 TABLET BY 00 TAKE 1 Sports MOUTH EVERY MOUTH EVERY TABLET BY Medicin DAY FOR 90 DAY FOR 90 MOUTH e DAYS DAYS EVERY DAY FOR 90 DAYS isosorbide isosorbide 2021-0 No isosorbide [facility] mononitrate mononitrate 4-21 mononitrat [facility] ER 30 mg ER 30 mg 00:00: e ER 30 mg dic tablet,exte tablet,exte 00 tablet,ext Sports nded nded ended Medicin release 24 release 24 release 24 e hr TAKE 1 hr TAKE 1 hr TAKE 1 TABLET BY TABLET BY TABLET BY MOUTH IN MOUTH IN MOUTH IN THE MORNING THE MORNING THE MORNING Levemir Levemir 2021-0 No Levemir Azal ea U-100 U-100 4-21 U-100 [facility] Insulin Insulin 00:00: Insulin dic Sports Medicin e clopidogrel clopidogrel 0 No clopidogre [facility] 75 mg 75 mg 4-21 l 75 mg [facility] tablet TAKE tablet TAKE 00:00: tablet dic 1 TABLET BY 1 TABLET BY 00 TAKE 1 Sports MOUTH EVERY MOUTH EVERY TABLET BY Medicin DAY FOR 90 DAY FOR 90 MOUTH e DAYS DAYS EVERY DAY FOR 90 DAYS isosorbide isosorbide 2021-0 No isosorbide [facility] mononitrate mononitrate 4-21 mononitrat [facility] ER 30 mg ER 30 mg 00:00: e ER 30 mg dic tablet,exte tablet,exte 00 tablet,ext Sports nded nded ended Medicin release 24 release 24 release 24 e hr TAKE 1 hr TAKE 1 hr TAKE 1 TABLET BY TABLET BY TABLET BY MOUTH IN MOUTH IN MOUTH IN THE MORNING THE MORNING THE MORNING Levemir Levemir 2021-0 No Levemir Azal ea U-100 U-100 4-21 U-100 [facility] Insulin Insulin 00:00: Insulin dic Sports Medicin e clopidogrel clopidogrel 0 No clopidogre [facility] 75 mg 75 mg 4-21 l 75 mg [facility] tablet TAKE tablet TAKE 00:00: tablet dic 1 TABLET BY 1 TABLET BY 00 TAKE 1 Sports MOUTH EVERY MOUTH EVERY TABLET BY Medicin DAY FOR 90 DAY FOR 90 MOUTH e DAYS DAYS EVERY DAY FOR 90 DAYS isosorbide isosorbide 2021-0 No isosorbide [facility] mononitrate mononitrate 4-21 mononitrat [facility] ER 30 mg ER 30 mg 00:00: e ER 30 mg dic tablet,exte tablet,exte 00 tablet,ext Sports nded nded ended Medicin release 24 release 24 release 24 e hr TAKE 1 hr TAKE 1 hr TAKE 1 TABLET BY TABLET BY TABLET BY MOUTH IN MOUTH IN MOUTH IN THE MORNING THE MORNING THE MORNING Levemir Levemir 2021-0 No Levemir Azal ea U-100 U-100 4-21 U-100 [facility] Insulin Insulin 00:00: Insulin dic 00 Sports Medicin e clopidogrel clopidogrel 0 No clopidogre [facility] 75 mg 75 mg 4-21 l 75 mg [facility] tablet TAKE tablet TAKE 00:00: tablet dic 1 TABLET BY 1 TABLET BY 00 TAKE 1 Sports MOUTH EVERY MOUTH EVERY TABLET BY Medicin DAY FOR 90 DAY FOR 90 MOUTH e DAYS DAYS EVERY DAY FOR 90 DAYS isosorbide isosorbide 2021-0 No isosorbide [facility] mononitrate mononitrate 4-21 mononitrat [facility] ER 30 mg ER 30 mg 00:00: e ER 30 mg dic tablet,exte tablet,exte 00 tablet,ext Sports nded nded ended Medicin release 24 release 24 release 24 e hr TAKE 1 hr TAKE 1 hr TAKE 1 TABLET BY TABLET BY TABLET BY MOUTH IN MOUTH IN MOUTH IN THE MORNING THE MORNING THE MORNING Levemir Levemir 0 No Levemir Azal ea U-100 U-100 4-21 U-100 [facility] Insulin Insulin 00:00: Insulin dic 00 Sports Medicin e clopidogrel clopidogrel 0 No clopidogre [facility] 75 mg 75 mg 4-21 l 75 mg [facility] tablet TAKE tablet TAKE 00:00: tablet dic 1 TABLET BY 1 TABLET BY 00 TAKE 1 Sports MOUTH EVERY MOUTH EVERY TABLET BY Medicin DAY FOR 90 DAY FOR 90 MOUTH e DAYS DAYS EVERY DAY FOR 90 DAYS isosorbide isosorbide 0 No isosorbide [facility] mononitrate mononitrate 4-21 mononitrat [facility] ER 30 mg ER 30 mg 00:00: e ER 30 mg dic tablet,exte tablet,exte 00 tablet,ext Sports nded nded ended Medicin release 24 release 24 release 24 e hr TAKE 1 hr TAKE 1 hr TAKE 1 TABLET BY TABLET BY TABLET BY MOUTH IN MOUTH IN MOUTH IN THE MORNING THE MORNING THE MORNING Levemir Levemir 0 No Levemir Azal ea U-100 U-100 4-21 U-100 [facility] Insulin Insulin 00:00: Insulin dic Sports Medicin e clopidogrel clopidogrel 0 No clopidogre [facility] 75 mg 75 mg 4-21 l 75 mg [facility] tablet TAKE tablet TAKE 00:00: tablet dic 1 TABLET BY 1 TABLET BY 00 TAKE 1 Sports MOUTH EVERY MOUTH EVERY TABLET BY Medicin DAY FOR 90 DAY FOR 90 MOUTH e DAYS DAYS EVERY DAY FOR 90 DAYS isosorbide isosorbide 2021-0 No isosorbide [facility] mononitrate mononitrate 4-21 mononitrat [facility] ER 30 mg ER 30 mg 00:00: e ER 30 mg dic tablet,exte tablet,exte 00 tablet,ext Sports nded nded ended Medicin release 24 release 24 release 24 e hr TAKE 1 hr TAKE 1 hr TAKE 1 TABLET BY TABLET BY TABLET BY MOUTH IN MOUTH IN MOUTH IN THE MORNING THE MORNING THE MORNING Levemir Levemir 2022-0 No Levemir Azal ea U-100 U-100 4-21 U-100 [facility] Insulin Insulin 00:00: Insulin dic Sports Medicin e clopidogrel clopidogrel No clopidogre [facility] 75 mg 75 mg 4-21 l 75 mg [facility] tablet TAKE tablet TAKE 00:00: tablet dic 1 TABLET BY 1 TABLET BY 00 TAKE 1 Sports MOUTH EVERY MOUTH EVERY TABLET BY Medicin DAY FOR 90 DAY FOR 90 MOUTH e DAYS DAYS EVERY DAY FOR 90 DAYS isosorbide isosorbide No isosorbide [facility] mononitrate mononitrate 4-21 mononitrat [facility] ER 30 mg ER 30 mg 00:00: e ER 30 mg dic tablet,exte tablet,exte 00 tablet,ext Sports nded nded ended Medicin release 24 release 24 release 24 e hr TAKE 1 hr TAKE 1 hr TAKE 1 TABLET BY TABLET BY TABLET BY MOUTH IN MOUTH IN MOUTH IN THE MORNING THE MORNING THE MORNING Levemir Levemir No Levemir Azal ea U-100 U-100 4-21 U-100 [facility] Insulin Insulin 00:00: Insulin dic 00 Sports Medicin e Levemir Levemir No Levemir Azal ea U-100 U-100 4-21 U-100 [facility] Insulin Insulin 00:00: Insulin dic Sports Medicin e Levemir Levemir No Levemir Azal ea U-100 U-100 4-21 U-100 [facility] Insulin Insulin 00:00: Insulin dic Sports Medicin e clopidogrel clopidogrel No 75mg clopidogre [facility] 75 mg 75 mg 4-21 l 75 mg [facility] tablet 75 tablet 75 00:00: tablet 75 dic mg by oral mg by oral 00 mg by oral Sports route. route. route. Medicin e isosorbide isosorbide No 30mg isosorbide [facility] mononitrate mononitrate 4-21 mononitrat [facility] ER 30 mg ER 30 mg 00:00: e ER 30 mg dic tablet,exte tablet,exte 00 tablet,ext Sports nded nded ended Medicin release 24 release 24 release 24 e hr 30 mg by hr 30 mg by hr 30 mg oral route. oral route. by oral route. Levemir Levemir No Levemir Azal ea U-100 U-100 4-21 U-100 [facility] Insulin Insulin 00:00: Insulin dic SUB-Q, 0 SUB-Q, 0 00 SUB-Q, 0 Spo rts Refill(s) Refill(s) Refill(s) Medicin e clopidogrel clopidogrel No 75mg clopidogre [facility] 75 mg 75 mg 4-21 l 75 mg [facility] tablet 75 tablet 75 00:00: tablet 75 dic mg by oral mg by oral 00 mg by oral Sports route. route. route. Medicin e isosorbide isosorbide No 30mg isosorbide [facility] mononitrate mononitrate 4-21 mononitrat [facility] ER 30 mg ER 30 mg 00:00: e ER 30 mg dic tablet,exte tablet,exte 00 tablet,ext Sports nded nded ended Medicin release 24 release 24 release 24 e hr 30 mg by hr 30 mg by hr 30 mg oral route. oral route. by oral route. Levemir Levemir No Levemir Azal ea U-100 U-100 4-21 U-100 [facility] Insulin Insulin 00:00: Insulin dic SUB-Q, 0 SUB-Q, 0 00 SUB-Q, 0 Spo rts Refill(s) Refill(s) Refill(s) Medicin e azelastine Yes [id number] 1{spray Use 1 [facility] 137 mcg 1-24 } [place] in ity of (0.1 %) 00:00: each [place] nasal spray 00 nostril 2 Med ical (two) Branch times daily. Use in each nostril as directed fluticasone Yes [id number] 1{spray Use 1 [facility] propionate 1-24 } [place] in ity o f 50 00:00: each [place] mcg/actuati 00 nostril Medic al on nasal daily. Branch spray cetirizine Yes [id number] 10mg Take 1 U nivers (ZYRTEC) 10 1-24 tablet by ity of mg tablet 00:00: mouth [place] 00 daily. Medical Branch azelastine Yes [id number] 1{spray Use 1 [facility] 137 mcg 1-24 } [place] in ity of (0.1 %) 00:00: each [place] nasal spray 00 nostril 2 Med ical (two) Branch times daily. Use in each nostril as directed fluticasone 2-0 Yes [id number] 1{spray Use 1 [facility] propionate 1-24 } [place] in ity o f 50 00:00: each [place] mcg/actuati 00 nostril Medic al on nasal daily. Branch spray cetirizine 2021-0 Yes [id number] 10mg Take 1 U nivers (ZYRTEC) 10 1-24 tablet by ity of mg tablet 00:00: mouth [place] 00 daily. Medical Branch azelastine 2021-0 Yes [id number] 1{spray Use 1 [facility] 137 mcg 1-24 } [place] in ity of (0.1 %) 00:00: each [place] nasal spray 00 nostril 2 Med ical (two) Branch times daily. Use in each nostril as directed fluticasone 2-0 Yes [id number] 1{spray Use 1 [facility] propionate 1-24 } [place] in ity o f 50 00:00: each [place] mcg/actuati 00 nostril Medic al on nasal daily. Branch spray cetirizine 2021-0 Yes [id number] 10mg Take 1 U nivers (ZYRTEC) 10 1-24 tablet by ity of mg tablet 00:00: mouth [place] 00 daily. Medical Branch azelastine 2021-0 Yes [id number] 1{spray Use 1 [facility] 137 mcg 1-24 } [place] in ity of (0.1 %) 00:00: each [place] nasal spray 00 nostril 2 Med ical (two) Branch times daily. Use in each nostril as directed fluticasone 2-0 Yes [id number] 1{spray Use 1 [facility] propionate 1-24 } [place] in ity o f 50 00:00: each [place] mcg/actuati 00 nostril Medic al on nasal daily. Branch spray cetirizine 2021-0 Yes [id number] 10mg Take 1 U nivers (ZYRTEC) 10 1-24 tablet by ity of mg tablet 00:00: mouth [place] 00 daily. Medical Branch azelastine 2021-0 Yes [id number] 1{spray Use 1 [facility] 137 mcg 1-24 } [place] in ity of (0.1 %) 00:00: each [place] nasal spray 00 nostril 2 Med ical (two) Branch times daily. Use in each nostril as directed fluticasone 2-0 Yes [id number] 1{spray Use 1 [facility] propionate 1-24 } [place] in ity o f 50 00:00: each [place] mcg/actuati 00 nostril Medic al on nasal daily. Branch spray cetirizine 2021-0 Yes [id number] 10mg Take 1 U nivers (ZYRTEC) 10 1-24 tablet by ity of mg tablet 00:00: mouth [place] 00 daily. Medical Branch azelastine 2021-0 Yes [id number] 1{spray Use 1 [facility] 137 mcg 1-24 } [place] in ity of (0.1 %) 00:00: each [place] nasal spray 00 nostril 2 Med ical (two) Branch times daily. Use in each nostril as directed fluticasone 2021-0 Yes [id number] 1{spray Use 1 [facility] propionate 1-24 } [place] in ity o f 50 00:00: each [place] mcg/actuati 00 nostril Medic al on nasal daily. Branch spray cetirizine 2021-0 Yes [id number] 10mg Take 1 U nivers (ZYRTEC) 10 1-24 tablet by ity of mg tablet 00:00: mouth [place] 00 daily. Medical Branch azelastine 2021-0 Yes [id number] 1{spray Use 1 [facility] 137 mcg 1-24 } [place] in ity of (0.1 %) 00:00: each [place] nasal spray 00 nostril 2 Med ical (two) Branch times daily. Use in each nostril as directed fluticasone 2-0 Yes [id number] 1{spray Use 1 [facility] propionate 1-24 } [place] in ity o f 50 00:00: each [place] mcg/actuati 00 nostril Medic al on nasal daily. Branch spray cetirizine 2-0 Yes [id number] 10mg Take 1 U nivers (ZYRTEC) 10 1-24 tablet by ity of mg tablet 00:00: mouth [place] 00 daily. Medical Branch azelastine 2021-0 Yes [id number] 1{spray Use 1 [facility] 137 mcg 1-24 } [place] in ity of (0.1 %) 00:00: each [place] nasal spray 00 nostril 2 Med ical (two) Branch times daily. Use in each nostril as directed fluticasone 2021-0 Yes [id number] 1{spray Use 1 [facility] propionate 1-24 } [place] in ity o f 50 00:00: each [place] mcg/actuati 00 nostril Medic al on nasal daily. Branch spray cetirizine 2021-0 Yes [id number] 10mg Take 1 U nivers (ZYRTEC) 10 1-24 tablet by ity of mg tablet 00:00: mouth [place] 00 daily. Medical Branch azelastine 2021-0 Yes [id number] 1{spray Use 1 [facility] 137 mcg 1-24 } [place] in ity of (0.1 %) 00:00: each [place] nasal spray 00 nostril 2 Med ical (two) Branch times daily. Use in each nostril as directed fluticasone 2021-0 Yes [id number] 1{spray Use 1 [facility] propionate 1-24 } [place] in ity o f 50 00:00: each [place] mcg/actuati 00 nostril Medic al on nasal daily. Branch spray cetirizine 2021-0 Yes [id number] 10mg Take 1 U nivers (ZYRTEC) 10 1-24 tablet by ity of mg tablet 00:00: mouth [place] 00 daily. Medical Branch azelastine 2021-0 Yes [id number] 1{spray Use 1 [facility] 137 mcg 1-24 } [place] in ity of (0.1 %) 00:00: each [place] nasal spray 00 nostril 2 Med ical (two) Branch times daily. Use in each nostril as directed fluticasone 2021-0 Yes [id number] 1{spray Use 1 [facility] propionate 1-24 } [place] in ity o f 50 00:00: each [place] mcg/actuati 00 nostril Medic al on nasal daily. Branch spray cetirizine 2021-0 Yes [id number] 10mg Take 1 U nivers (ZYRTEC) 10 1-24 tablet by ity of mg tablet 00:00: mouth [place] 00 daily. Medical Branch amoxicillin 2021-0 2022- No [id number] 1{tbl} Take 1 [facility] -clavulanat 1-24 02-01 tablet by it y of e 00:00: 05:59 mouth 2 [place] (AUGMENTIN) 00 :00 (two) Medical 875-125 mg times Branch per tablet daily for 7 days. amoxicillin 2021- No [id number] 1{tbl} Take 1 [facility] -clavulanat 124 09-27 tablet by it y of e 00:00: 05:59 mouth 2 [place] (AUGMENTIN) 00 :00 (two) Medical 875-125 mg times Branch per tablet daily for 7 days. baclofen 10 Yes baclofen Un julissa mg tablet 7-13 10 mg ity of 13:26: tablet [address] metoprolol Yes metoprolol U nivers tartrate 25 7-13 tartrate ity of mg tablet 13:26: 25 mg [place] [address] [facility] omeprazole Yes omeprazole U nivers 40 mg 7-13 40 mg ity of capsule 13:26: capsule,de Daryla s [address] [place] [address] tamsulosin Yes tamsulosin U nivers 0.4 mg 24 7-13 0.4 mg ity of hr capsule 13:26: capsule [address] baclofen 10 Yes baclofen Un julissa mg tablet 7-13 10 mg ity of 13:26: tablet [address] metoprolol Yes metoprolol U nivers tartrate 25 7-13 tartrate ity of mg tablet 13:26: 25 mg [place] [address] [facility] omeprazole Yes omeprazole U nivers 40 mg 7-13 40 mg ity of capsule 13:26: capsule,de Daryla s [address] [place] [address] tamsulosin Yes tamsulosin U nivers 0.4 mg 24 7-13 0.4 mg ity of hr capsule 13:26: capsule [address] baclofen 10 Yes baclofen Un julissa mg tablet 7-13 10 mg ity of 13:26: tablet [address] metoprolol Yes metoprolol U nivers tartrate 25 7-13 tartrate ity of mg tablet 13:26: 25 mg [place] [address] [facility] omeprazole Yes omeprazole U nivers 40 mg 7-13 40 mg ity of capsule 13:26: capsule,de Daryla s [facility] tamsulosin Yes tamsulosin U nivers 0.4 mg 24 7-13 0.4 mg ity of hr capsule 13:26: capsule [address] baclofen 10 Yes baclofen Un julissa mg tablet 7-13 10 mg ity of 13:26: tablet [address] metoprolol Yes metoprolol U nivers tartrate 25 7-13 tartrate ity of mg tablet 13:26: 25 mg [place] [address] tablet [facility] omeprazole Yes omeprazole U nivers 40 mg 7-13 40 mg ity of capsule 13:26: capsule,[place] [facility] tamsulosin Yes tamsulosin U nivers 0.4 mg 24 7-13 0.4 mg ity of hr capsule 13:26: capsule [address] baclofen 10 Yes baclofen Un julissa mg tablet 7-13 10 mg ity of 13:26: tablet [address] metoprolol Yes metoprolol U nivers tartrate 25 7-13 tartrate ity of mg tablet 13:26: 25 mg [place] [address] tablet [facility] omeprazole Yes omeprazole U nivers 40 mg 7-13 40 mg ity of capsule 13:26: capsule,[place] [facility] tamsulosin Yes tamsulosin U nivers 0.4 mg 24 7-13 0.4 mg ity of hr capsule 13:26: capsule [place] baclofen 10 Yes baclofen Un julissa mg tablet 7-13 10 mg ity of 13:26: tablet [address] metoprolol Yes metoprolol U nivers tartrate 25 7-13 tartrate ity of mg tablet 13:26: 25 mg [place] [address] [facility] omeprazole Yes omeprazole U nivers 40 mg 7-13 40 mg ity of capsule 13:26: [place] [facility] tamsulosin Yes tamsulosin U nivers 0.4 mg 24 7-13 0.4 mg ity of hr capsule 13:26: capsule [place] baclofen 10 Yes baclofen Un julissa mg tablet 7-13 10 mg ity of 13:26: tablet [address] metoprolol Yes metoprolol U nivers tartrate 25 7-13 tartrate ity of mg tablet 13:26: [address] omeprazole Yes omeprazole U nivers 40 mg 7-13 40 mg ity of capsule 13:26: capsule,[place] [address] [place] [address] tamsulosin Yes tamsulosin U nivers 0.4 mg 24 7-13 0.4 mg ity of hr capsule 13:26: capsule [place] baclofen Yes baclofen Un julissa mg tablet 7-13 10 mg ity of 13:26: tablet [address] metoprolol Yes metoprolol U nivers tartrate 25 7-13 tartrate ity of mg tablet 13:26: [address] omeprazole Yes omeprazole U nivers 40 mg 7-13 40 mg ity of capsule 13:26: [place] [address] [place] [address] tamsulosin Yes tamsulosin U nivers 0.4 mg 24 7-13 0.4 mg ity of hr capsule 13:26: capsule [address] baclofen Yes baclofen Un julissa mg tablet 7-13 10 mg ity of 13:26: tablet [address] metoprolol Yes metoprolol U nivers tartrate 25 7-13 tartrate ity of mg tablet 13:26: [address] omeprazole Yes omeprazole U nivers 40 mg 7-13 40 mg ity of capsule 13:26: [place] [address] [place], [place] [address] tamsulosin Yes tamsulosin U nivers 0.4 mg 24 7-13 0.4 mg ity of hr capsule 13:26: capsule [address] baclofen Yes baclofen Un julissa mg tablet 7-13 10 mg ity of 13:26: tablet [address] metoprolol Yes metoprolol U nivers tartrate 25 7-13 tartrate ity of mg tablet 13:26: 25 mg [place] [address] [facility] omeprazole Yes omeprazole U nivers 40 mg 7-13 40 mg ity of capsule 13:26: capsule,de Daryla s [address] [place] [address] tamsulosin Yes tamsulosin U nivers 0.4 mg 24 7-13 0.4 mg ity of hr capsule 13:26: capsule [address] baclofen 10 Yes baclofen Un julissa mg tablet 7-13 10 mg ity of 13:26: tablet [address] metoprolol Yes metoprolol U nivers tartrate 25 7-13 tartrate ity of mg tablet 13:26: 25 mg [place] [address] [facility] omeprazole Yes omeprazole U nivers 40 mg 7-13 40 mg ity of capsule 13:26: capsule,Fuentes [address] tamsulosin Yes tamsulosin U nivers 0.4 mg 24 7-13 0.4 mg ity of hr capsule 13:26: capsule [address] lisinopriL Yes [facility] 10 mg 7-12 ity of tablet 00:00: [address] lisinopriL Yes [facility] 10 mg 7-12 ity of tablet 00:00: [address] lisinopriL Yes [facility] 10 mg 7-12 ity of tablet 00:00: [address] lisinopriL Yes [facility] 10 mg 7-12 ity of tablet 00:00: [address] lisinopriL Yes [facility] 10 mg 7-12 ity of tablet 00:00: [address] lisinopriL Yes [facility] 10 mg 7-12 ity of tablet 00:00: [place] [facility] lisinopriL Yes Univers 10 mg 7-12 ity of tablet 00:00: [address] lisinopriL Yes [facility] 10 mg 7-12 ity of tablet 00:00: [address] lisinopriL Yes [facility] 10 mg 7-12 ity of tablet 00:00: [place] [facility] lisinopriL 1-0 Yes [facility] 10 mg 7-12 ity of tablet 00:00: [place] [facility] lisinopriL 1-0 Yes [facility] 10 mg 7-12 ity of tablet 00:00: [place] [facility] tiZANidine 1-0 Yes [facility] 4 mg tablet 7-10 ity of 00:00: [place] [facility] tiZANidine 1-0 Yes [facility] 4 mg tablet 7-10 ity of 00:00: [place] [facility] tiZANidine 1-0 Yes [facility] 4 mg tablet 7-10 ity of 00:00: [place] [facility] tiZANidine 1-0 Yes [facility] 4 mg tablet 7-10 ity of 00:00: [place] [facility] tiZANidine 1-0 Yes [facility] 4 mg tablet 7-10 ity of 00:00: [place] [facility] tiZANidine 1-0 Yes [facility] 4 mg tablet 7-10 ity of 00:00: [place] [facility] tiZANidine 1-0 Yes [facility] 4 mg tablet 7-10 ity of 00:00: [place] [facility] tiZANidine 1-0 Yes [facility] 4 mg tablet 7-10 ity of 00:00: [place] [facility] tiZANidine 1-0 Yes [facility] 4 mg tablet 7-10 ity of 00:00: [place] [facility] tiZANidine 1-0 Yes [facility] 4 mg tablet 7-10 ity of 00:00: [place] [facility] tiZANidine 1-0 Yes [facility] 4 mg tablet 7-10 ity of 00:00: [place] [facility] celecoxib 1-0 Yes 200mg Take 200 Uni vers 200 mg 5-14 mg by ity of capsule 00:00: mouth [place] [address] every Medical morning. Branch celecoxib 1-0 Yes 200mg Take 200 Uni vers 200 mg 5-14 mg by ity of capsule 00:00: mouth [place] every Medical morning. Branch celecoxib 1-0 Yes 200mg Take 200 Uni vers 200 mg 5-14 mg by ity of capsule 00:00: mouth [place] every Medical morning. Branch celecoxib 1-0 Yes 200mg Take 200 Uni vers 200 mg 5-14 mg by ity of capsule 00:00: mouth [place] every Medical morning. Branch celecoxib 2021-0 Yes 200mg Take 200 Uni vers 200 mg 5-14 mg by ity of capsule 00:00: mouth [place] 00 every Medical morning. Branch celecoxib 2021-0 Yes 200mg Take 200 Uni vers 200 mg 5-14 mg by ity of capsule 00:00: mouth [place] 00 every Medical morning. Branch celecoxib 2021-0 Yes 200mg Take 200 Uni vers 200 mg 5-14 mg by ity of capsule 00:00: mouth [place] 00 every Medical morning. Branch celecoxib 2021-0 Yes 200mg Take 200 Uni vers 200 mg 5-14 mg by ity of capsule 00:00: mouth [place] 00 every Medical morning. Branch celecoxib 2021-0 Yes 200mg Take 200 Uni vers 200 mg 5-14 mg by ity of capsule 00:00: mouth [place] 00 every Medical morning. Branch celecoxib 1-0 Yes 200mg Take 200 Uni vers 200 mg 5-14 mg by ity of capsule 00:00: mouth [place] 00 every Medical morning. Branch celecoxib 1-0 Yes 200mg Take 200 Uni vers 200 mg 5-14 mg by ity of capsule 00:00: mouth [place] 00 every Medical morning. Branch atorvastati Yes 40 mg = 1 M emoria n 40 mg 4-23 tab, PO, l oral tablet 18:24: Bedtime, # 00 30 tab, 0 Refill(s) atorvastati 2020-0 Yes 40 mg = 1 M emoria n 40 mg 4-23 tab, PO, l oral tablet 18:24: Bedtime, # Hooper 00 30 tab, 0 Refill(s) atorvastati 2020-0 Yes 40 mg = 1 M emoria n 40 mg 4-23 tab, PO, l oral tablet 18:24: Bedtime, # 00 30 tab, 0 Refill(s) atorvastati 0 Yes 40 mg = 1 M emoria n 40 mg 4-23 tab, PO, l oral tablet 18:24: Bedtime, # 00 30 tab, 0 Refill(s) atorvastati atorvastati 0 No 40mg atorvastat [facility] n 40 mg n 40 mg 4-23 in 40 mg Orth[facility] pe tablet 40 tablet 40 00:00: tablet 40 dic mg by oral mg by oral 00 mg by oral Sports route. route. route. Medicin e atorvastati atorvastati No atorvastat [facility] n 40 mg n 40 mg 4-23 in 40 mg Ortho pe tablet tablet 00:00: tablet dic 00 Sports Medicin e atorvastati atorvastati 0 No atorvastat [facility] n 40 mg n 40 mg 4-23 in 40 mg Ortho pe tablet tablet 00:00: tablet dic 00 Sports Medicin e atorvastati atorvastati No atorvastat [facility] n 40 mg n 40 mg 4-23 in 40 mg Ortho pe tablet tablet 00:00: tablet dic 00 Sports Medicin e atorvastati atorvastati No atorvastat [facility] n 40 mg n 40 mg 4-23 in 40 mg Ortho pe tablet tablet 00:00: tablet dic 00 Sports Medicin e atorvastati atorvastati No atorvastat [facility] n 40 mg n 40 mg 4-23 in 40 mg Ortho pe tablet tablet 00:00: tablet dic 00 Sports Medicin e atorvastati atorvastati No atorvastat [facility] n 40 mg n 40 mg 4-23 in 40 mg Ortho pe tablet tablet 00:00: tablet dic 00 Sports Medicin e atorvastati atorvastati 0 No 40mg atorvastat [facility] n 40 mg n 40 mg 4-23 in 40 mg Ortho pe tablet 40 tablet 40 00:00: tablet 40 dic mg by oral mg by oral 00 mg by oral Sports route. route. route. Medicin e atorvastati atorvastati No 40mg atorvastat [facility] Jo n 40 mg n 40 mg 4-23 in 40 mg Ortho pe tablet 40 tablet 40 00:00: tablet 40 dic mg by oral mg by oral 00 mg by oral Sports route. route. route. Medicin e atorvastati Yes 40mg Take 40 mg Univers n 40 mg 4-23 by mouth ity of tablet 00:00: daily. [address] atorvastati Yes 40mg Take 40 mg Univers n 40 mg 4-23 by mouth ity of tablet 00:00: daily. [place] [facility] atorvastati Yes 40mg Take 40 mg Univers n 40 mg 4-23 by mouth ity of tablet 00:00: daily. [facility] atorvastati Yes 40mg Take 40 mg Univers n 40 mg 4-23 by mouth ity of tablet 00:00: daily. [facility] atorvastati Yes 40mg Take 40 mg Univers n 40 mg 4-23 by mouth ity of tablet 00:00: daily. [facility] atorvastati Yes 40mg Take 40 mg Univers n 40 mg 4-23 by mouth ity of tablet 00:00: daily. [facility] atorvastati Yes 40mg Take 40 mg Univers n 40 mg 4-23 by mouth ity of tablet 00:00: daily. [facility] atorvastati Yes 40mg Take 40 mg Univers n 40 mg 4-23 by mouth ity of tablet 00:00: daily. [facility] atorvastati Yes 40mg Take 40 mg Univers n 40 mg 4-23 by mouth ity of tablet 00:00: daily. [facility] atorvastati Yes 40mg Take 40 mg Univers n 40 mg 4-23 by mouth ity of tablet 00:00: daily. [facility] atorvastati Yes 40mg Take 40 mg Univers n 40 mg 4-23 by mouth ity of tablet 00:00: daily. [place] [facility] glimepiride 2018-08 Yes 4 mg = 1 [...] release 00 30 cap, 0 capsule Refill(s) aspirin 81 2018-08 Yes 81 mg = 1 Me moria mg tablet, 0-01 tab, PO, l chewable 21:32: Daily, 00 tab, 0 Refill(s) levocetiriz 2018-08 Yes 5 mg = 1 Me moria ine 5 mg 0-01 tab, PO, l oral tablet 21:32: QPM, 0 Herm hawa 00 Refill(s) Aspirin 81 2018-08 Yes 81 mg = 1 Me moria MG Chewable 0-01 tab, PO, l Tablet 21:32: Daily, [place] 00 tab, 0 Refill(s) dapaglifloz 2018-08 Yes 5 mg = 1 Me moria in 0-01 tab, PO, l propanediol 21:32: Daily, 0 He rmann 5 MG Oral 00 Refill(s) Tablet [Farxiga] glimepiride 2018-08 Yes 4 mg = 1 Me moria 4 mg oral 0-01 tab, PO, l tablet 21:32: BID, 0 00 Refill(s) celecoxib 2018-08 Yes 200 mg = 1 Me moria 200 mg oral 0-01 cap, PO, l capsule 21:32: Daily, # Shantanu n 00 30 cap, 0 Refill(s) metoprolol 2018-08 Yes 12.5 mg = Me moria tartrate 25 0-01 0.5 tab, l mg oral 21:32: PO, BID, 0 Herm hawa tablet 00 Refill(s) aspirin 81 2018-08 Yes 81 mg = 1 Me moria mg tablet, 0-01 tab, PO, l chewable 21:32: Daily, [place] 00 tab, 0 Refill(s) tamsulosin 2018-08 Yes 0.4 mg = 1 M emoria 0.4 mg oral 0-01 cap, PO, l capsule 21:32: Daily, # Shantanu n 00 30 cap, 0 Refill(s) omeprazole 2018-08 Yes 40 mg = 1 Me moria 40 mg oral 0-01 cap, PO, l delayed 21:32: Daily, # Shantanu n release 00 30 cap, 0 capsule Refill(s) levocetiriz 2018-08 Yes 5 mg = 1 Me moria ine 5 mg 0-01 tab, PO, l oral tablet 21:32: QPM, 0 Herm hawa 00 Refill(s) Aspirin 81 2018-08 Yes 81 mg = 1 Me moria MG Chewable 0-01 tab, PO, l Tablet 21:32: Daily, 00 tab, 0 Refill(s) dapaglifloz 2018-08 Yes 5 mg = 1 Me moria in 0-01 tab, PO, l propanediol 21:32: Daily, 0 He rmann 5 MG Oral 00 Refill(s) Tablet [Farxiga] glimepiride 2018-08 Yes 4 mg = 1 Me moria 4 mg oral 0-01 tab, PO, l tablet 21:32: BID, 0 [place] 00 Refill(s) celecoxib 2018-08 Yes 200 mg = 1 Me moria 200 mg oral 0-01 cap, PO, l capsule 21:32: Daily, # Shantanu n 00 30 cap, 0 Refill(s) metoprolol 2018-08 Yes 12.5 mg = Me moria tartrate 25 0-01 0.5 tab, l mg oral 21:32: PO, BID, 0 Herm hawa tablet 00 Refill(s) aspirin 81 2018-08 Yes 81 mg = 1 Me moria mg tablet, 0-01 tab, PO, l chewable 21:32: Daily, 00 tab, 0 Refill(s) tamsulosin 2018-08 Yes 0.4 mg = 1 M emoria 0.4 mg oral 0-01 cap, PO, l capsule 21:32: Daily, # Shantanu n 00 30 cap, 0 Refill(s) omeprazole 2018-08 Yes 40 mg = 1 Me moria 40 mg oral 0-01 cap, PO, l delayed 21:32: Daily, # Shantanu n release 00 30 cap, 0 capsule Refill(s) levocetiriz 2018-08 Yes 5 mg = 1 Me moria ine 5 mg 0-01 tab, PO, l oral tablet 21:32: QPM, 0 Herm hawa 00 Refill(s) Aspirin 81 2018-08 Yes 81 mg = 1 Me moria MG Chewable 0-01 tab, PO, l Tablet 21:32: Daily, [place] 00 tab, 0 Refill(s) dapaglifloz 2018-08 Yes 5 mg = 1 Me moria in 0-01 tab, PO, l propanediol 21:32: Daily, 0 He rmann 5 MG Oral 00 Refill(s) Tablet [Farxiga] glimepiride 2018-08 Yes 4 mg = 1 Me moria 4 mg oral 0-01 tab, PO, l tablet 21:32: BID, 0 [place] 00 Refill(s) celecoxib 2018-08 Yes 200 mg = 1 Me moria 200 mg oral 0-01 cap, PO, l capsule 21:32: Daily, # Shantanu n 00 30 cap, 0 Refill(s) metoprolol 2018-08 Yes 12.5 mg = Me moria tartrate 25 0-01 0.5 tab, l mg oral 21:32: PO, BID, 0 Herm hawa tablet 00 Refill(s) aspirin 81 2018-08 Yes 81 mg = 1 Me moria mg tablet, 0-01 tab, PO, l chewable 21:32: Daily, [place] 00 tab, 0 Refill(s) tamsulosin 2018-08 Yes 0.4 mg = 1 M emoria 0.4 mg oral 0-01 cap, PO, l capsule 21:32: Daily, # Shantanu n 00 30 cap, 0 Refill(s) omeprazole 2018-08 Yes 40 mg = 1 Me moria 40 mg oral 0-01 cap, PO, l delayed 21:32: Daily, # Shantanu n release 00 30 cap, 0 capsule Refill(s) aspirin 81 aspirin 81 2018-08 No 81mg aspirin 81 Mary Jo mg chewable mg chewable 0-01 mg O rthope tablet 81 tablet 81 00:00: chewable dic mg by oral mg by oral 00 tablet 81 Sports route. route. mg by oral Medic in route. e celecoxib celecoxib 2018-08 No 200mg celecoxib Mary Jo 200 mg 200 mg 0-01 200 mg [facility] capsule 200 capsule 200 00:00: capsule dic mg by oral mg by oral 00 200 mg by Sports route. route. oral Medicin route. e Farxiga 5 Farxiga 5 2018-08 No Farxiga 5 Mary [facility] mg tablet mg tablet 0-01 mg tablet [facility]ope 00:00: dic 00 Sports Medicin e glimepiride glimepiride 2018-08 No 4mg glimepirid Mary Jo 4 mg tablet 4 mg tablet 0-01 e 4 mg [facility] 4 mg by 4 mg by 00:00: tablet 4 dic oral route. oral route. 00 mg by oral Sports route. Medicin e metoprolol metoprolol 2018-08 No 12.5mg metoprolol Mary Jo tartrate 25 tartrate 25 0-01 tartrate [facility] mg tablet mg tablet 00:00: 25 mg di c 12.5 mg by 12.5 mg by 00 tablet S ports oral route. oral route. 12.5 mg by Medicin oral e route. omeprazole omeprazole 2018-08 No 40mg omeprazole Mary Jo 40 mg 40 mg 0-01 40 mg [facility] capsule,del capsule,del 00:00: capsule,de dic ayed ayed 00 layed Sports release 40 release 40 release 40 Medicin mg by oral mg by oral mg by oral e route. route. route. tamsulosin tamsulosin 2018-08 No .4mg tamsulosin Mary Jo 0.4 mg 0.4 mg 0-01 0.4 mg [facility] capsule 0.4 capsule 0.4 00:00: capsule dic mg by oral mg by oral 00 0.4 mg by Sports route. route. oral Medicin route. e aspirin 81 aspirin 81 2018-08 No aspirin 81 Mary Jo mg chewable mg chewable 0-01 mg O rthope tablet tablet 00:00: chewable dic 00 tablet Sports Medicin e celecoxib celecoxib 2018-08 No celecoxib Mary Jo 200 mg 200 mg 0-01 200 mg [facility] capsule capsule 00:00: capsule dic 00 Sports Medicin e Farxiga 5 Farxiga 5 2018-08 No Farxiga 5 Mary Jo mg tablet mg tablet 0-01 mg tablet [facility] 00:00: dic 00 Sports Medicin e glimepiride glimepiride 2018-08 No glimepirid Mary Jo 4 mg tablet 4 mg tablet 0-01 e 4 mg [facility] 00:00: tablet dic 00 Sports Medicin e levocetiriz levocetiriz 2018-08 No levocetiri [facility] ine 5 mg ine 5 mg 0-01 zine 5 mg Or thope tablet tablet 00:00: tablet dic 00 Sports Medicin e metoprolol metoprolol 2018-08 No metoprolol Mary Jo tartrate 25 tartrate 25 0-01 tartrate [facility] mg tablet mg tablet 00:00: 25 mg di c 00 tablet Sports Medicin e omeprazole omeprazole 2018-08 No omeprazole Mary Jo 40 mg 40 mg 0-01 40 mg [facility] capsule,del capsule,del 00:00: capsule,de dic ayed ayed 00 layed Sports release release release Medici n e tamsulosin tamsulosin 2018-08 No tamsulosin Mary Jo 0.4 mg 0.4 mg 0-01 0.4 mg [facility] capsule capsule 00:00: capsule dic 00 Sports Medicin e aspirin 81 aspirin 81 2018-08 No aspirin 81 [facility] mg chewable mg chewable 0-01 mg O rthope tablet tablet 00:00: chewable dic 00 tablet Sports Medicin e celecoxib celecoxib 2018-08 No celecoxib Mary [facility] 200 mg 200 mg 0-01 200 mg [facility] capsule capsule 00:00: capsule dic 00 Sports Medicin e Farxiga 5 Farxiga 5 2018-08 No Farxiga 5 [facility] mg tablet mg tablet 0-01 mg tablet [facility] 00:00: dic 00 Sports Medicin e glimepiride glimepiride 2018-08 No glimepirid Mary Jo 4 mg tablet 4 mg tablet 0-01 e 4 mg [facility] 00:00: tablet dic 00 Sports Medicin e levocetiriz levocetiriz 2018-08 No levocetiri [facility] ine 5 mg ine 5 mg 0-01 zine 5 mg Or thope tablet tablet 00:00: tablet dic 00 Sports Medicin e metoprolol metoprolol 2018-08 No metoprolol Mary Jo tartrate 25 tartrate 25 0-01 tartrate [facility] mg tablet mg tablet 00:00: 25 mg di c 00 tablet Sports Medicin e omeprazole omeprazole 2018-08 No omeprazole Mary Jo 40 mg 40 mg 0-01 40 mg [facility] capsule,del capsule,del 00:00: capsule,de dic ayed ayed 00 layed Sports release release release Medici n e tamsulosin tamsulosin 2018-08 No tamsulosin Mary Jo 0.4 mg 0.4 mg 0-01 0.4 mg [facility] capsule capsule 00:00: capsule dic 00 Sports Medicin e aspirin 81 aspirin 81 2018-08 No aspirin 81 [facility] mg chewable mg chewable 0-01 mg O rthope tablet tablet 00:00: chewable dic 00 tablet Sports Medicin e celecoxib celecoxib 2018-08 No celecoxib [facility] 200 mg 200 mg 0-01 200 mg [facility] capsule capsule 00:00: capsule dic 00 Sports Medicin e Farxiga 5 Farxiga 5 2018-08 No Farxiga 5 [facility] mg tablet mg tablet 0-01 mg tablet [facility] 00:00: dic 00 Sports Medicin e glimepiride glimepiride 2018-08 No glimepirid Mary Jo 4 mg tablet 4 mg tablet 0-01 e 4 mg [facility] 00:00: tablet dic 00 Sports Medicin e levocetiriz levocetiriz 2018-08 No levocetiri [facility] ine 5 mg ine 5 mg 0-01 zine 5 mg Or thope tablet tablet 00:00: tablet dic 00 Sports Medicin e metoprolol metoprolol 2018-08 No metoprolol Mary Jo tartrate 25 tartrate 25 0-01 tartrate [facility] mg tablet mg tablet 00:00: 25 mg di c 00 tablet Sports Medicin e omeprazole omeprazole 2018-08 No omeprazole Mary Jo 40 mg 40 mg 0-01 40 mg [facility] capsule,del capsule,del 00:00: capsule,de dic ayed ayed 00 layed Sports release release release Medici n e tamsulosin tamsulosin 2018-08 No tamsulosin Mary [facility] 0.4 mg 0.4 mg 0-01 0.4 mg [facility] capsule capsule 00:00: capsule dic 00 Sports Medicin e aspirin 81 aspirin 81 2018-08 No aspirin 81 [facility] mg chewable mg chewable 0-01 mg O rthope tablet tablet 00:00: chewable dic 00 tablet Sports Medicin e celecoxib celecoxib 2018-08 No celecoxib [facility] 200 mg 200 mg 0-01 200 mg [facility] capsule capsule 00:00: capsule dic 00 Sports Medicin e Farxiga 5 Farxiga 5 2018-08 No Farxiga 5 [facility] mg tablet mg tablet 0-01 mg tablet [facility] 00:00: dic 00 Sports Medicin e glimepiride glimepiride 2018-08 No glimepirid Mary Jo 4 mg tablet 4 mg tablet 0-01 e 4 mg [facility] 00:00: tablet dic 00 Sports Medicin e levocetiriz levocetiriz 2018-08 No levocetiri [facility] ine 5 mg ine 5 mg 0-01 zine 5 mg Or thope tablet tablet 00:00: tablet dic 00 Sports Medicin e metoprolol metoprolol 2018-08 No metoprolol Mary [facility] tartrate 25 tartrate 25 0-01 tartrate [facility] mg tablet mg tablet 00:00: 25 mg di c 00 tablet Sports Medicin e omeprazole omeprazole 2018-08 No omeprazole Mary Jo 40 mg 40 mg 0-01 40 mg [facility] capsule,del capsule,del 00:00: capsule,de dic ayed ayed 00 layed Sports release release release Medici n e tamsulosin tamsulosin 2018-08 No tamsulosin [facility] 0.4 mg 0.4 mg 0-01 0.4 mg [facility] capsule capsule 00:00: capsule dic 00 Sports Medicin e aspirin 81 aspirin 81 2018-08 No aspirin 81 [facility] mg chewable mg chewable 0-01 mg O rthope tablet tablet 00:00: chewable dic 00 tablet Sports Medicin e celecoxib celecoxib 2018-08 No celecoxib [facility] 200 mg 200 mg 0-01 200 mg [facility] capsule capsule 00:00: capsule dic 00 Sports Medicin e Farxiga 5 Farxiga 5 2018-08 No Farxiga 5 [facility] mg tablet mg tablet 0-01 mg tablet [facility] 00:00: dic 00 Sports Medicin e glimepiride glimepiride 2018-08 No glimepirid [facility] 4 mg tablet 4 mg tablet 0-01 e 4 mg [facility] 00:00: tablet dic 00 Sports Medicin e levocetiriz levocetiriz 2018-08 No levocetiri [facility] ine 5 mg ine 5 mg 0-01 zine 5 mg Or thope tablet tablet 00:00: tablet dic 00 Sports Medicin e metoprolol metoprolol 2018-08 No metoprolol [facility] tartrate 25 tartrate 25 0-01 tartrate [facility] mg tablet mg tablet 00:00: 25 mg di c 00 tablet Sports Medicin e omeprazole omeprazole 2018-08 No omeprazole Mary Jo 40 mg 40 mg 0-01 40 mg [facility] capsule,del capsule,del 00:00: capsule,de dic ayed ayed 00 layed Sports release release release Medici n e tamsulosin tamsulosin 2018-08 No tamsulosin [facility] 0.4 mg 0.4 mg 0-01 0.4 mg [facility] capsule capsule 00:00: capsule dic 00 Sports Medicin e aspirin 81 aspirin 81 2018-08 No aspirin 81 [facility] mg chewable mg chewable 0-01 mg O rthope tablet tablet 00:00: chewable dic 00 tablet Sports Medicin e celecoxib celecoxib 2018-08 No celecoxib [facility] 200 mg 200 mg 0-01 200 mg [facility] capsule capsule 00:00: capsule dic 00 Sports Medicin e Farxiga 5 Farxiga 5 2018-08 No Farxiga 5 [facility] mg tablet mg tablet 0-01 mg tablet [facility] 00:00: dic 00 Sports Medicin e glimepiride glimepiride 2018-08 No glimepirid [facility] 4 mg tablet 4 mg tablet 0-01 e 4 mg [facility] 00:00: tablet dic 00 Sports Medicin e levocetiriz levocetiriz 2018-08 No levocetiri [facility] ine 5 mg ine 5 mg 0-01 zine 5 mg Or thope tablet tablet 00:00: tablet dic 00 Sports Medicin e metoprolol metoprolol 2018-08 No metoprolol [facility] tartrate 25 tartrate 25 0-01 tartrate [facility] mg tablet mg tablet 00:00: 25 mg di c 00 tablet Sports Medicin e omeprazole omeprazole 2018-08 No omeprazole [facility] 40 mg 40 mg 0-01 40 mg [facility] capsule,del capsule,del 00:00: capsule,de dic ayed ayed 00 layed Sports release release release Medici n e tamsulosin tamsulosin 2018-08 No tamsulosin [facility] 0.4 mg 0.4 mg 0-01 0.4 mg [facility] capsule capsule 00:00: capsule dic 00 Sports Medicin e aspirin 81 aspirin 81 2018-08 No aspirin 81 [facility] mg chewable mg chewable 0-01 mg O rthope tablet tablet 00:00: chewable dic 00 tablet Sports Medicin e [facility] 5 [facility] 5 2018-08 No Farxiga 5 [facility] mg tablet mg tablet 0-01 mg tablet [facility] 00:00: dic 00 Sports Medicin e glimepiride glimepiride 2018-08 No glimepirid [facility] Jo 4 mg tablet 4 mg tablet 0-01 e 4 mg [facility] 00:00: tablet dic 00 Sports Medicin e metoprolol metoprolol 2018-08 No metoprolol [facility] tartrate 25 tartrate 25 0-01 tartrate [facility] mg tablet mg tablet 00:00: 25 mg di c 00 tablet Sports Medicin e aspirin 81 aspirin 81 2018-08 No aspirin 81 [facility] mg chewable mg chewable 0-01 mg O rthope tablet tablet 00:00: chewable dic 00 tablet Sports Medicin e [address] 5 2018-08 No Farxiga 5 [facility] mg tablet mg tablet 0-01 mg tablet [facility] 00:00: dic 00 Sports Medicin e glimepiride glimepiride 2018-08 No glimepirid [facility] 4 mg tablet 4 mg tablet 0-01 e 4 mg [facility] 00:00: tablet dic 00 Sports Medicin e metoprolol metoprolol 2018-08 No metoprolol [facility] tartrate 25 tartrate 25 0-01 tartrate [facility] mg tablet mg tablet 00:00: 25 mg di c 00 tablet Sports Medicin e aspirin 81 aspirin 81 2018-08 No aspirin 81 [facility] mg chewable mg chewable 0-01 mg O r[facility]ope tablet tablet 00:00: chewable dic 00 tablet Sports Medicin e [facility] 5 [facility] 5 2018-08 No Farxiga 5 [facility] mg tablet mg tablet 0-01 mg tablet [facility] 00:00: dic 00 Sports Medicin e glimepiride glimepiride 2018-08 No glimepirid [facility] 4 mg tablet 4 mg tablet 0-01 e 4 mg [facility] 00:00: tablet dic 00 Sports Medicin e aspirin 81 aspirin 81 2018-08 No aspirin 81 [facility] mg chewable mg chewable 0-01 mg O r[facility]ope tablet tablet 00:00: chewable dic 00 tablet Sports Medicin e Farxiga 5 Oscarxiga 5 2018-08 No Farxiga 5 [facility] mg tablet mg tablet 0-01 mg tablet [facility] 00:00: dic 00 Sports Medicin e glimepiride glimepiride 2018-08 No glimepirid [facility] 4 mg tablet 4 mg tablet 0-01 e 4 mg [facility] 00:00: tablet dic 00 Sports Medicin e aspirin 81 aspirin 81 2018-08 No 81mg aspirin 81 [facility] mg chewable mg chewable 0-01 mg O rthope tablet 81 tablet 81 00:00: chewable dic mg by oral mg by oral 00 tablet 81 Sports route. route. mg by oral Medic in route. e celecoxib celecoxib 2018-08 No 200mg celecoxib [facility] 200 mg 200 mg 0-01 200 mg [facility] capsule 200 capsule 200 00:00: capsule dic mg by oral mg by oral 00 200 mg by Sports route. route. oral Medicin route. e Oscarxiga 5 Oscarxiga 5 2018-08 No Farxiga 5 [facility] mg tablet mg tablet 0-01 mg tablet [facility] 00:00: dic 00 Sports Medicin e glimepiride glimepiride 2018-08 No 4mg glimepirid [facility] 4 mg tablet 4 mg tablet 0-01 e 4 mg [facility] 4 mg by 4 mg by 00:00: tablet 4 dic oral route. oral route. 00 mg by oral Sports route. Medicin e metoprolol metoprolol 2018-08 No 12.5mg metoprolol [facility] tartrate 25 tartrate 25 0-01 tartrate [facility] mg tablet mg tablet 00:00: 25 mg di c 12.5 mg by 12.5 mg by 00 tablet S ports oral route. oral route. 12.5 mg by Medicin oral e route. omeprazole omeprazole 2018-08 No 40mg omeprazole [facility] 40 mg 40 mg 0-01 40 mg [facility] capsule,del capsule,del 00:00: capsule,de dic ayed ayed 00 layed Sports release 40 release 40 release 40 Medicin mg by oral mg by oral mg by oral e route. route. route. tamsulosin tamsulosin 2018-08 No .4mg tamsulosin [facility] 0.4 mg 0.4 mg 0-01 0.4 mg [facility] capsule 0.4 capsule 0.4 00:00: capsule dic mg by oral mg by oral 00 0.4 mg by Sports route. route. oral Medicin route. e aspirin 81 aspirin 81 2018-08 No 81mg aspirin 81 [facility] mg chewable mg chewable 0-01 mg O rthope tablet 81 tablet 81 00:00: chewable dic mg by oral mg by oral 00 tablet 81 Sports route. route. mg by oral Medic in route. e celecoxib celecoxib 2018-08 No 200mg celecoxib [facility] 200 mg 200 mg 0-01 200 mg [facility] capsule 200 capsule 200 00:00: capsule dic mg by oral mg by oral 00 200 mg by Sports route. route. oral Medicin route. e Farxiga 5 Farxiga 5 2018-08 No Farxiga 5 [facility] mg tablet mg tablet 0-01 mg tablet [facility] 00:00: dic 00 Sports Medicin e glimepiride glimepiride 2018-08 No 4mg glimepirid [facility] 4 mg tablet 4 mg tablet 0-01 e 4 mg [facility] 4 mg by 4 mg by 00:00: tablet 4 dic oral route. oral route. 00 mg by oral Sports route. Medicin e metoprolol metoprolol 2018-08 No 12.5mg metoprolol Mary Jo tartrate 25 tartrate 25 0-01 tartrate [facility] mg tablet mg tablet 00:00: 25 mg di c 12.5 mg by 12.5 mg by 00 tablet S ports oral route. oral route. 12.5 mg by Medicin oral e route. omeprazole omeprazole 2018-08 No 40mg omeprazole Mary Jo 40 mg 40 mg 0-01 40 mg [facility] capsule,del capsule,del 00:00: capsule,de dic ayed ayed 00 layed Sports release 40 release 40 release 40 Medicin mg by oral mg by oral mg by oral e route. route. route. tamsulosin tamsulosin 2018-08 No .4mg tamsulosin Mary Jo 0.4 mg 0.4 mg 0-01 0.4 mg [facility] capsule 0.4 capsule 0.4 00:00: capsule dic mg by oral mg by oral 00 0.4 mg by Sports route. route. oral Medicin route. e amLODIPine 2019-0 Yes 10mg QD Take [address] (NORVASC) 2-06 [facility] 10 MG 09:59: daily. [facility] tablet [facility] lisinopril 2019-0 Yes 20mg QD Take [address] (PRINIVIL,Z 2-06 by mouth [facility] ESTRIL) 5 09:59: daily . Medic al MG tablet 51 [facility] omeprazole 2019-0 Yes 40mg QD Take [address] (PRILOSEC) 2-06 [facility] 40 MG 09:59: daily. Medical capsule 51 [place] glimepiride 2019-0 Yes .5mg Take 0.5 [facility] [...] tablet 09:59: every Medic al 51 evening. [place] celecoxib 2019-0 Yes 200mg Take [address] [facility] (CELEBREX) 2-06 mg by [facility] 200 MG 09:59: mouth Medical capsule 51 every 12 Center (twelve) hours as needed for Pain. amLODIPine 2019-0 Yes 10mg QD Take [address] (NORVASC) 2-06 by mouth [facility] 10 MG 09:59: daily. Medical tablet 51 [facility] lisinopril 2019-0 Yes 20mg QD Take [address] (PRINIVIL,Z 2-06 by mouth [facility] ESTRIL) 5 09:59: daily . Medic al MG tablet 51 [place] omeprazole 2019-0 Yes 40mg QD Take [address] (PRILOSEC) 2-06 by mouth [facility] 40 MG 09:59: daily. Medical capsule 51 [place] glimepiride 2019-0 Yes .5mg Take 0.[address] [facility] [address] [facility] (AMARYL) 1 2-06 mg by [facility] MG tablet 09:59: mouth Medical 51 every Center morning before breakfast. tamsulosin 2019-0 Yes .4mg QD Take 0.[address] [facility] (FLOMAX) 2-06 mg by [facility] 0.4 mg Cap 09:59: mouth Medica l 24 hr 51 daily. [place] capsule levocetiriz 2019-0 Yes 5mg QD Take [address] in[facility] (XYZAL) 2-06 by mouth [facility] 5 MG tablet 09:59: every Medic al 51 evening. [place] celecoxib 0 Yes 200mg Take [address] [facility] (CELEBREX) 2-06 mg by [facility] 200 MG 09:59: mouth Medical capsule 51 every 12 Center (twelve) hours as needed for Pain. amLODIPine 0 Yes 10mg QD Take [address] (NORVASC) 2-06 [facility] 10 MG 09:59: daily. Medical tablet 51 [place] lisinopril 0 Yes 20mg QD Take [address] (PRINIVIL,Z 2-06 by mouth [facility] ESTRIL) 5 09:59: daily . Medic al MG tablet 51 [place] omeprazole 0 Yes 40mg QD Take [address] (PRILOSEC) 2-06 [facility] 40 MG 09:59: daily. Medical capsule 51 [place] glimepiride 2018-0 Yes .5mg Take 0.[address] [facility] [address] [facility] (AMARYL) 1 2-06 mg by [facility] MG tablet 09:59: mouth Medical 51 every Center morning before breakfast. tamsulosin 2019-0 Yes .4mg QD Take 0.[address] [facility] (FLOMAX) 2-06 mg by [facility] 0.4 mg Cap 09:59: mouth Medica l 24 hr 51 daily. [place] capsule levocetiriz 2019-0 Yes 5mg QD Take [address] in[facility] (XYZAL) 2-06 by mouth [facility] 5 MG tablet 09:59: every Medic al 51 evening. [place] celecoxib 0 Yes 200mg Take [address] [facility] [address] (CELEBREX) 2-06 mg by [facility] 200 MG 09:59: mouth Medical capsule 51 every 12 Center (twelve) hours as needed for Pain. Protonix No Prashanth 40 mg, 1 Danilo gricelda 2-05 Raj tab, l 22:30: Tam Route: PO, Keiry nn 00 Drug form: ECTAB, Before Dinner, Start date: 10/01/11 16:30:00, Duration: 30 day, Stop date: 10/30/11 16:30:00 Protonix 2012-0 No Prashanth 40 mg, 1 Danilo gricelda 2-05 Raj tab, l 22:30: Tam Route: PO, Keiry nn 00 Drug form: ECTAB, Before Dinner, Start date: 10/01/11 16:30:00, Duration: 30 day, Stop date: 10/30/11 16:30:00 Protonix 2012-0 No Prashanth 40 mg, 1 Danilo gricelda 2-05 Raj tab, l 22:30: Tam Route: PO, Keiry nn 00 Drug form: ECTAB, Before Dinner, Start date: 10/01/11 16:30:00, Duration: 30 day, Stop date: 10/30/11 16:30:00 Protonix 2012-0 No Prashanth 40 mg, 1 Danilo gricelda 2-05 Raj tab, l 22:30: Tam Route: PO, Keiry nn 00 Drug form: ECTAB, Before Dinner, Start date: 10/01/11 16:30:00, Duration: 30 day, Stop date: 10/30/11 16:30:00 cefdinir 2012-0 Yes Prashanth 300 mg, 1 Mem oria 300 mg oral 2-05 Raj cap, PO, l capsule 15:56: Tam Q12H, 28 Herm hawa 51 cap, Substituti on Allowed, CAP cefdinir 2012-0 Yes Prashanth 300 mg, 1 Mem oria 300 mg oral 2-05 Raj cap, PO, l capsule 15:56: Tam Q12H, 28 Herm hawa 51 cap, Substituti on Allowed, CAP cefdinir 2012-0 Yes Prashanth 300 mg, 1 Mem oria 300 mg oral 2-05 Raj cap, PO, l capsule 15:56: Tam Q12H, 28 Herm hawa 51 cap, Substituti on Allowed, CAP cefdinir 2012-0 Yes Prashanth 300 mg, 1 Mem oria 300 mg oral 2-05 Arj cap, PO, l capsule 15:56: Tam Q12H, 28 Herm hawa 51 cap, Substituti on Allowed, CAP Flagyl 500 Yes Prashanth 500 mg, 1 M emoria mg oral 2-05 Raj tab, PO, l tablet 15:55: Tam Q8H, 42 Shantanu n 54 tab, Substituti on Allowed, TAB Flagyl 500 Yes Prashanth 500 mg, 1 M emoria mg oral 2-05 Raj tab, PO, l tablet 15:55: Tam Q8H, 42 Shantanu n 54 tab, Substituti on Allowed, TAB Flagyl 500 Yes Prashanth 500 mg, 1 M emoria mg oral 2-05 Raj tab, PO, l tablet 15:55: Tam Q8H, 42 Shantanu n 54 tab, Substituti on Allowed, TAB Flagyl 500 Yes Prashanth 500 mg, 1 M emoria mg oral 2-05 Raj tab, PO, l tablet 15:55: Tam Q8H, 42 Shantanu n 54 tab, Substituti on Allowed, TAB ibuprofen 0 No Prashanth 400 mg, 1 Me moria 2-05 Raj tab, l 12:13: Yonatan Route: PO, Keiry nn 00 Drug form: TAB, Q4H, PRN Pain, Start date: 10/01/11 6:13:00, Duration: 30 day, Stop date: 10/31/11 6:12:00 ibuprofen 2011-0 No Prashanth 400 mg, 1 Me moria 2-05 Raj tab, l 12:13: Yonatan Route: PO, Keiry nn 00 Drug form: TAB, Q4H, PRN Pain, Start date: 10/01/11 6:13:00, Duration: 30 day, Stop date: 10/31/11 6:12:00 ibuprofen 2011-0 No Prashanth 400 mg, 1 Me moria 2-05 Raj tab, l 12:13: Yonatan Route: PO, Keiry nn 00 Drug form: TAB, Q4H, PRN Pain, Start date: 10/01/11 6:13:00, Duration: 30 day, Stop date: 10/31/11 6:12:00 ibuprofen 2011-0 No Prashanth 400 mg, 1 Me moria 2-05 Raj tab, l 12:13: Tam Route: PO, Keiry nn 00 Drug form: TAB, Q4H, PRN Pain, Start date: 10/01/11 6:13:00, Duration: 30 day, Stop date: 10/31/11 6:12:00 Tylenol 2012-0 No Prashanth 650 mg, Memori a 2-05 Raj Route: PO, l 11:59: Tam Drug form: Keiry nn 00 TAB, Q6H, PRN Pain, Start date: 10/01/11 5:59:00, Duration: 30 day, Stop date: 10/31/11 5:58:00 Tylenol 2012-0 No Prashanth 650 mg, Memori a 2-05 Raj Route: PO, l 11:59: Tam Drug form: Keiry nn 00 TAB, Q6H, PRN Pain, Start date: 10/01/11 5:59:00, Duration: 30 day, Stop date: 10/31/11 5:58:00 Tylenol 2012-0 No Prashanth 650 mg, Memori a 2-05 Raj Route: PO, l 11:59: Tam Drug form: Keiry nn 00 TAB, Q6H, PRN Pain, Start date: 10/01/11 5:59:00, Duration: 30 day, Stop date: 10/31/11 5:58:00 Tylenol 2012-0 No Prashanth 650 mg, Memori a 2-05 Raj Route: PO, l 11:59: Tam Drug form: Keiry nn 00 TAB, Q6H, PRN Pain, Start date: 10/01/11 5:59:00, Duration: 30 day, Stop date: 10/31/11 5:58:00 Tylenol 2012-0 No Prashanth 650 mg, Memori a 2-05 Raj 20.3 mL, l 11:27: Tam Route: PO, Keiry nn 00 Drug form: LIQ, ONCE, Start date: 10/01/11 5:27:00, Stop date: 10/01/11 5:27:00 Tylenol 2012-0 No Prashanth 650 mg, Memori a 2-05 [...] 30 day, Stop date: 10/30/11 16:00:00 heparin 2011-0 No Prashanth 5,000 Memoria 5000 2-05 Raj unit, 1 l units/mL 06:00: Tam mL, Route: H ermann injectable 00 SUB-Q, solution Drug form: INJ, Q8H, Start date: 10/01/11 0:00:00, Duration: 30 day, Stop date: 10/30/11 16:00:00 heparin 2011-0 No Prashanth 5,000 Memoria 5000 2-05 Raj unit, 1 l units/mL 06:00: Tam mL, Route: H ermann injectable 00 SUB-Q, solution Drug form: INJ, Q8H, Start date: 10/01/11 0:00:00, Duration: 30 day, Stop date: 10/30/11 16:00:00 heparin 2011-0 No Prashanth 5,000 Memoria 5000 2-05 Raj unit, 1 l units/mL 06:00: Tam mL, Route: H ermann injectable 00 SUB-Q, solution Drug form: INJ, Q8H, Start date: 10/01/11 0:00:00, Duration: 30 day, Stop date: 10/30/11 16:00:00 ondansetron 2012-0 No Prashanth 4 mg, 2 Me moria 2-05 Raj mL, Route: l 05:43: Tam IVP, Drug Shantanu n 00 form: INJ, Q6H, PRN Nausea & Vomiting, Start date: 09/30/11 23:43:00, Duration: 30 day, Stop date: 10/30/11 23:42:00 ondansetron 2012-0 No Prashanth 4 mg, 2 Me moria 2-05 Raj mL, Route: l 05:43: Tam IVP, Drug Shantanu n 00 form: INJ, Q6H, PRN Nausea & Vomiting, Start date: 09/30/11 23:43:00, Duration: 30 day, Stop date: 10/30/11 23:42:00 ondansetron 2012-0 No Prashanth 4 mg, 2 Me moria 2-05 Raj mL, Route: l 05:43: Tam IVP, Drug Shantanu n 00 form: INJ, Q6H, PRN Nausea & Vomiting, Start date: 09/30/11 23:43:00, Duration: 30 day, Stop date: 10/30/11 23:42:00 ondansetron 2012-0 No Prashanth 4 mg, 2 Me moria 2-05 Raj mL, Route: l 05:43: Tam IVP, Drug Shantanu n 00 form: INJ, Q6H, PRN Nausea & Vomiting, Start date: 09/30/11 23:43:00, Duration: 30 day, Stop date: 10/30/11 23:42:00 magnesium 2012-0 No Myriam 2 gm, 50 Me moria sulfate 2-05 Gabriella mL, Route: l 01:39: Akunyili IVPB, Drug Her brenner 00 form: INJ, ONCE, Total dose = 2 gm, Start date: 09/30/11 19:39:00, Duration: 1 doses or times, Stop date: 09/30/11 19:39:00 magnesium 2012-0 No Myriam 2 gm, 50 Me moria sulfate 2-05 Gabriella mL, Route: l 01:39: Akunyili IVPB, Drug Her brenner 00 form: INJ, ONCE, Total dose = 2 gm, Start date: 09/30/11 19:39:00, Duration: 1 doses or times, Stop date: 09/30/11 19:39:00 magnesium 2011-0 No Myriam 2 gm, 50 Me moria sulfate 2-05 Gabriella mL, Route: l 01:39: Akunyili IVPB, Drug Her brenner 00 form: INJ, ONCE, Total dose = 2 gm, Start date: 09/30/11 19:39:00, Duration: 1 doses or times, Stop date: 09/30/11 19:39:00 magnesium 2011-0 No Myriam 2 gm, 50 Me moria sulfate 2-05 Gabriella mL, Route: l 01:39: Akunyili IVPB, Drug Her brenner 00 form: INJ, ONCE, Total dose = 2 gm, Start date: 09/30/11 19:39:00, Duration: 1 doses or times, Stop date: 09/30/11 19:39:00 morphine 2011-0 No Marianna Jocelyne 4 mg, Me moria Sulfate 2- Route: l 23:55: IVP, ONCE, Hooper 00 Priority: STAT, Start date: 09/30/11 17:55:00, Stop date: 09/30/11 17:55:00 morphine 2011-0 No Marianna Jocelyne 4 mg, Me moria Sulfate 2- Route: l 23:55: IVP, ONCE, 00 Priority: STAT, Start date: 09/30/11 17:55:00, Stop date: 09/30/11 17:55:00 morphine 2011-0 No Marianna Jocelyne 4 mg, Me moria Sulfate 2- Route: l 23:55: IVP, ONCE, 00 Priority: STAT, Start date: 09/30/11 17:55:00, Stop date: 09/30/11 17:55:00 morphine 2011-0 No Marianna Jocelyne 4 mg, Me moria Sulfate 2- Route: l 23:55: IVP, ONCE, Hooper 00 Priority: STAT, Start date: 09/30/11 17:55:00, Stop date: 09/30/11 17:55:00 ibuprofen 2011-0 No Marianna Jocelyne 400 mg, 1 Memoria 400 mg oral 2-04 [place] tab, l tablet 22:27: Route: PO, Keiry nn 00 Drug form: TAB, ONCE, Priority: STAT, Start date: 09/30/11 16:27:00, Stop date: 09/30/11 16:27:00 ibuprofen 2012-0 No Marianna Jocelyne 400 mg, 1 Memoria 400 mg oral 2-04 [place] tab, l tablet 22:27: Route: PO, Keiry nn 00 Drug form: TAB, ONCE, Priority: STAT, Start date: 09/30/11 16:27:00, Stop date: 09/30/11 16:27:00 ibuprofen 2011-0 No Marianna Jocelyne 400 mg, 1 Memoria 400 mg oral 2-04 [place] tab, l tablet 22:27: Route: PO, Keiry nn 00 Drug form: TAB, ONCE, Priority: STAT, Start date: 09/30/11 16:27:00, Stop date: 09/30/11 16:27:00 ibuprofen 2012-0 No Marianna Jocelyne 400 mg, 1 Memoria 400 mg oral 2-04 [place] tab, l tablet 22:27: Route: PO, Keiry nn 00 Drug form: TAB, ONCE, Priority: STAT, Start date: 09/30/11 16:27:00, Stop date: 09/30/11 16:27:00 Tylenol 2012-0 No Prashanth 650 mg, 2 [...] 30 day, Stop date: 10/30/11 16:22:00 Tylenol No Prashanth 650 mg, 2 Danilo gricelda [...] on Allowed, take with foodtake with food [place] No Prashanth 1-2 tab, M emoria oral tablet 2-04 Raj PO, Q6H, l 21:46: Tam PRN, 12 27 tab, Pain, Substituti on Allowed, Maintenanc e [place] No Prashanth 1-2 tab, M emoria oral tablet 2-04 Raj PO, Q6H, l 21:46: Tam PRN, 12 27 tab, Pain, Substituti on Allowed, Maintenanc e [place] 325 No Prashanth 1-2 tab, M emoria oral tablet 2-04 Raj PO, Q6H, l 21:46: Tam PRN, 12 Hooper 27 tab, Pain, Substituti on Allowed, Maintenanc e [place] 5/325 No Prashanth 1-2 tab, M emoria oral tablet 2-04 Raj PO, Q6H, l 21:46: Tam PRN, 12 Hooper 27 tab, Pain, Substituti on Allowed, Maintenanc [...] PO, l tablet, 21:46: Tam BID, 10 Kiery nn disintegrat 18 tab, ing Substituti on Allowed, Dissolve tab under tongueDiss olve tab under tongue Sodium No Marianna Jocelyne 1,000 mL, Memoria Chloride 2-04 [place] Rate: l 0.9% 18:26: 1,000 Hooper (Bolus) IV 00 ml/hr, 1000 mL Infuse over: 1 hr, Route: IV, Total Volume: 1,000, Bolus Dose, Priority: STAT, Start date: 09/30/11 12:26:00, Duration: 1 doses or times, Stop date: 09/30/11 13:25:00 Sodium No Marianna Jocelyne 1,000 mL, Memoria Chloride 2-04 [place] Rate: l 0.9% 18:26: 1,000 Hooper (Bolus) IV 00 ml/hr, 1000 mL Infuse over: 1 hr, Route: IV, Total Volume: 1,000, Bolus Dose, Priority: STAT, Start date: 09/30/11 12:26:00, Duration: 1 doses or times, Stop date: 09/30/11 13:25:00 Sodium 2011-0 No Marianna Jocelyne 1,000 mL, Memoria Chloride 2-04 [place] Rate: l 0.9% 18:26: 1,000 Hooper (Bolus) IV 00 ml/hr, 1000 mL Infuse [...] [place] Route: PO, l 18:19: Drug form: Hooper 00 TAB, ONCE, Priority: STAT, Start date: 09/30/11 12:19:00, Stop date: 09/30/11 12:19:00 acetaminoph 2011-0 No Marianna Jocelyne 650 mg, Memoria en 2-04 [place] Route: PO, l 18:19: Drug form: Hooper 00 TAB, ONCE, Priority: STAT, Start date: 09/30/11 12:19:00, Stop date: 09/30/11 12:19:00 acetaminoph 2011-0 No Marianna Jocelyne 650 mg, Memoria en 2-04 [place] Route: PO, l 18:19: Drug form: Hooper 00 TAB, ONCE, Priority: STAT, Start date: 09/30/11 12:19:00, Stop date: 09/30/11 12:19:00 acetaminoph 2011-0 No Marianna Jocelyne 650 mg, Memoria en 2-04 [place] Route: PO, l 18:19: Drug form: Hooper 00 TAB, ONCE, Priority: STAT, Start date: 09/30/11 12:19:00, Stop date: 09/30/11 12:19:00 Zofran ODT 2012-0 No Marianna Jocelyne 4 mg, 1 Memoria 2-04 [place] tab, l 16:46: Route: PO, Hooper 00 Drug form: TABDIS, ONCE, Start date: 09/30/11 10:46:00, Stop date: 09/30/11 10:46:00 Zofran ODT 2011-0 No Marianna Jocelyne 4 mg, 1 Memoria 2-04 [place] tab, l 16:46: Route: PO, Hooper 00 Drug form: TABDIS, ONCE, Start date: 09/30/11 10:46:00, Stop date: 09/30/11 10:46:00 Zofran ODT 2011-0 No Marianna Jocelyne 4 mg, 1 Memoria 2-04 [place] tab, l 16:46: Route: PO, Hooper 00 Drug form: TABDIS, ONCE, Start date: 09/30/11 10:46:00, Stop date: 09/30/11 10:46:00 Zofran ODT 2011-0 No Marianna Jocelyne 4 mg, 1 Memoria 2-04 [place] tab, l 16:46: Route: PO, Hooper 00 Drug form: TABDIS, ONCE, Start date: 09/30/11 10:46:00, Stop date: 09/30/11 10:46:00 Sodium 2011-0 No Marianna Jocelyne 1,000 mL, Memoria Chloride 2-04 [place] Rate: l 0.9% 16:37: 1,000 Hooper (Bolus) IV 00 ml/hr, 1,000 mL Infuse over: 1 hr, Route: IV, Total Volume: 1,000, Bolus Dose, Priority: STAT, Start date: 09/30/11 10:37:00, Duration: 1 doses or times, Stop date: 09/30/11 11:36:00 Sodium 2011-0 No Marianna Jocelyne 1,000 mL, Memoria Chloride 2-04 [place] Rate: l 0.9% 16:37: 1,000 Hooper (Bolus) IV 00 ml/hr, 1,000 mL Infuse over: 1 hr, Route: IV, Total Volume: 1,000, Bolus Dose, Priority: STAT, Start date: 09/30/11 10:37:00, Duration: 1 doses or times, Stop date: 09/30/11 11:36:00 Sodium 2012-0 No Marianna Jocelyne 1,000 mL, Memoria Chloride [...] 2-04 on Allowed l 15:56: 54 Nexium Yes Substituti Memor ia 2-04 on Allowed l 15:56: 54 Nexium Yes Substituti Memor ia 2-04 on Allowed l 15:56: 54 Nexium 0 Yes Substituti Memor ia 2-04 on Allowed l 15:56: 54 metFORmin No Substituti Me moria 2-04 on Allowed l 15:56: 49 metFORmin 0 No Substituti Me moria 2-04 on Allowed l 15:56: 49 metFORmin 0 No Substituti Me moria 2-04 on Allowed l 15:56: 49 metFORmin 0 No Substituti Me moria 2-04 on Allowed l 15:56: Hermann Rivera Norvasc Yes Substituti Danilo gricelda 2-04 on Allowed l 15:56: Hermann Mourac Yes Substituti Danilo gricelda 2-04 on Allowed l 15:56: Hermann Mayersvasc 0 Yes Substituti Danilo gricelda 2-04 on Allowed l 15:56: Hermann Mayersvasc 0 Yes Substituti Danilo gricelda 2-04 on Allowed l 15:56: Hermann Mayersvasc Yes Substituti Danilo gricelda 2-04 on Allowed l 15:56: Hermann Mourac Yes Substituti Danilo gricelda 2-04 on Allowed l 15:56: Hermann Mourac Yes Substituti Danilo gricelda 2-04 on Allowed l 15:56: Hermann Mourac Yes Substituti Danilo gricelda 2-04 on Allowed l 15:56: Hermann Campos lisinopril 0 Yes Substituti M emoria 2-04 on Allowed l 15:56: Hermann Gallegos lisinopril 2011-0 Yes Substituti M emoria 2-04 on Allowed l 15:56: Hermann Gallegos lisinopril 2011-0 Yes Substituti M emoria 2-04 on Allowed l 15:56: Hermann Gallegos lisinopril 2011-0 Yes Substituti M emoria 2-04 on Allowed l 15:56: Hermann Gallegos Norvasc Rianavasc No Norvasc Azal ea Substitutio Substitutio 2-04 Substituti Orthope n Allowed n Allowed 00:00: on Allowed dic 00 Sports Medicin e Norvasc Norvasc No Norvasc Azal ea Substitutio Substitutio 2-04 Substituti Orthope n Allowed n Allowed 00:00: on Allowed dic 00 Sports Medicin e Norvasc Norvasc No Norvasc Azal ea Substitutio Substitutio 2-04 Substituti Orthope n Allowed n Allowed 00:00: on Allowed dic 00 Sports Medicin e Protonix No Kashif B. 40 mg, 1 Mem oria 09-23 [place] tab, l 22:30: Route: PO, Drug form: ECTAB, Before Dinner, Start date: 09/23/11 16:30:00, Duration: 30 day, Stop date: 10/22/11 16:30:00 Protonix 2011-0 No Kashif B. 40 mg, 1 Mem oria 09-23 [place] tab, l 22:30: Route: PO, Hooper 00 Drug form: ECTAB, Before Dinner, Start date: 09/23/11 16:30:00, Duration: 30 day, Stop date: 10/22/11 16:30:00 Protonix 2011-0 No Kashif B. 40 mg, 1 Mem oria 09-23 [place] tab, l 22:30: Route: PO, [place] Drug form: ECTAB, Before Dinner, Start date: 09/23/11 16:30:00, Duration: 30 day, Stop date: 10/22/11 16:30:00 Protonix 2011-0 No Kashif B. 40 mg, 1 Mem oria 09-23 [place] tab, l 22:30: Route: PO, Hooper 00 Drug form: ECTAB, Before Dinner, Start date: 09/23/11 16:30:00, Duration: 30 day, Stop date: 10/22/11 16:30:00 Zofran 4 mg Yes Veronica 4 mg, 1 Memoria oral tablet 09-23 [place] tab, PO, l 16:12: [place] BID, PRN, Herm hawa 50 10 tab, as needed for nausea/vom iting, Substituti on Allowed Zofran 4 mg Yes Veronica 4 mg, 1 Memoria oral tablet 09-23 [place] tab, PO, l 16:12: [place] BID, PRN, Herm hawa 50 10 tab, as needed for nausea/vom iting, Substituti on Allowed Zofran 4 mg Yes Veronica 4 mg, 1 Memoria oral tablet 09-23 [place] tab, PO, l 16:12: Jodie BID, PRN, Herm hawa 50 10 tab, as needed for nausea/vom iting, Substituti on Allowed Zofran 4 mg Yes Veronica 4 mg, 1 Memoria oral tablet 09-23 [place] tab, PO, l 16:12: [place] BID, PRN, Herm hawa 50 10 tab, as needed for nausea/vom iting, Substituti on Allowed Ultram 50 Yes Veronica 50 mg, 1 Memoria mg oral 09-23 [place] tab, PO, l tablet 16:12: Jodie Q6H, PRN, He rmann 33 20 tab, Pain, Substituti on Allowed, TAB Ultram 50 Yes Veronica 50 mg, 1 Memoria mg oral 09-23 [place] tab, PO, l tablet 16:12: Jodie Q6H, PRN, He rmann 33 20 tab, Pain, Substituti on Allowed, TAB Ultram 50 Yes Veronica 50 mg, 1 Memoria mg oral 09-23 [place] tab, PO, l tablet 16:12: Jodie Q6H, PRN, He rmann 33 20 tab, Pain, Substituti on Allowed, TAB Ultram 50 Yes Veronica 50 mg, 1 Memoria mg oral 09-23 [place] tab, PO, l tablet 16:12: [place] Q6H, PRN, He rmann 33 20 tab, Pain, Substituti on Allowed, TAB Augmentin Yes Veronica 1 tab, PO, Memoria 875 mg oral 09-23 [place] Q12H, 10 l tablet 16:12: [place] tab, Hooper 06 Substituti on Allowed, Maintenanc e, TAB Augmentin Yes Veronica 1 tab, PO, Memoria 875 mg oral 09-23 [place] Q12H, 10 l tablet 16:12: [place] tab, 06 Substituti on Allowed, Maintenanc e, TAB Augmentin Yes Veronica 1 tab, PO, Memoria 875 mg oral 09-23 [place] Q12H, 10 l tablet 16:12: Jodie tab, Hooper 06 Substituti on Allowed, Maintenanc e, TAB Augmentin Yes Veronica 1 tab, PO, Memoria 875 mg oral 09-23 [place] Q12H, 10 l tablet 16:12: Jodie tab, 06 Substituti on Allowed, Maintenanc e, TAB Nexium No Kashif B. 40 mg, Memoria 09-23 [place] Route: PO, l 15:00: Daily, Hooper 00 Start date: 09/23/11 9:00:00, Duration: 30 day, Stop date: 10/22/11 9:00:00 Nexium 2011-0 No Kashif B. 40 mg, Memoria 09-23 [place] Route: PO, l 15:00: Daily, Hooper 00 Start date: 09/23/11 9:00:00, Duration: 30 day, Stop date: 10/22/11 9:00:00 Nexium 2011-0 No Kashif B. 40 mg, Memoria 09-23 [place] Route: PO, l 15:00: Daily, Hooper 00 Start date: 09/23/11 9:00:00, Duration: 30 day, Stop date: 10/22/11 9:00:00 Nexium 2011-0 No Kashif B. 40 mg, Memoria 09-23 [place] Route: PO, l 15:00: Daily, Hooper 00 Start date: 09/23/11 9:00:00, Duration: 30 day, Stop date: 10/22/11 9:00:00 Benadryl 2011-0 No Kashif B. 25 mg, 1 Mem oria 09-23 [place] cap, l 07:03: Route: PO, 00 Drug form: CAP, ONCE, Start date: 09/23/11 1:03:00, Stop date: 09/23/11 1:03:00 Benadryl 2012-0 No Kashif B. 25 mg, 1 Mem oria 09-23 [place] cap, l 07:03: Route: PO, 00 Drug form: CAP, ONCE, Start date: 09/23/11 1:03:00, Stop date: 09/23/11 1:03:00 Benadryl 2011-0 No Kashif B. 25 mg, 1 Mem oria 09-23 [place] cap, l 07:03: Route: PO, 00 Drug form: CAP, ONCE, Start date: 09/23/11 1:03:00, Stop date: 09/23/11 1:03:00 Benadryl 2012-0 No Kashif B. 25 mg, 1 Mem oria 09-23 [place] cap, l 07:03: Route: PO, 00 Drug form: CAP, ONCE, Start date: 09/23/11 1:03:00, Stop date: 09/23/11 1:03:00 heparin 2011-0 No Veronica 5,000 Mem oria 1-28 [place] unit, 1 l 03:00: Jodie mL, Route: Her brenner 00 SUB-Q, Drug form: INJ, Q12H, Start date: 09/22/11 21:00:00, Duration: 30 day, Stop date: 10/22/11 9:00:00 Augmentin 2011-0 No Veronica 1 tab, Memoria 875 mg oral 1- [place] Route: PO, l tablet 03:00: [place] Drug Form: H ermann 00 TAB, Q12H, Start date: 09/22/11 21:00:00, Duration: 30 day, Stop date: 10/22/11 9:00:00 heparin 2011-0 No Veronica 5,000 Mem oria 1-28 [place] unit, 1 l 03:00: [place] mL, Route: Her brenner 00 SUB-Q, Drug form: INJ, Q12H, Start date: 09/22/11 21:00:00, Duration: 30 day, Stop date: 10/22/11 9:00:00 Augmentin 2011-0 No Veronica 1 tab, Memoria 875 mg oral - [place] Route: PO, l tablet 03:00: Jodie Drug Form: H ermann 00 TAB, Q12H, Start date: 09/22/11 21:00:00, Duration: 30 day, Stop date: 10/22/11 9:00:00 heparin 2011-0 No Veronica 5,000 Mem oria 1-28 [place] unit, 1 l 03:00: Jodie mL, Route: Her brenner 00 SUB-Q, Drug form: INJ, Q12H, Start date: 09/22/11 21:00:00, Duration: 30 day, Stop date: 10/22/11 9:00:00 Augmentin 2011-0 No Veronica 1 tab, Memoria 875 mg oral -28 [place] Route: PO, l tablet 03:00: [place] Drug Form: H ermann 00 TAB, Q12H, Start date: 09/22/11 21:00:00, Duration: 30 day, Stop date: 10/22/11 9:00:00 heparin 2011-0 No Veronica 5,000 Mem oria -28 [place] unit, 1 l 03:00: [place] mL, Route: Her brenner 00 SUB-Q, Drug form: INJ, Q12H, Start date: 09/22/11 21:00:00, Duration: 30 day, Stop date: 10/22/11 9:00:00 Augmentin 2011-0 No Veronica 1 tab, Memoria 875 mg oral 09-23 [place] Route: PO, l tablet 03:00: [place] Drug Form: H ermann 00 TAB, Q12H, Start date: 09/22/11 21:00:00, Duration: 30 day, Stop date: 10/22/11 9:00:00 pneumococca 2012-0 No SYSTEM 0.5 ml, M emoria l 23-valent 1-27 SYSTEM Route: IM, l vaccine 15:00: Drug Form: Herm hawa 00 INJ, Start date: 09/22/11 9:00:00, Stop date: 09/22/11 9:00:00 pneumococca 2012-0 No SYSTEM 0.5 ml, M emoria l 23-valent 1-27 SYSTEM Route: IM, l vaccine 15:00: Drug Form: Herm hawa 00 INJ, Start date: 09/22/11 9:00:00, Stop date: 09/22/11 9:00:00 pneumococca 2012-0 No SYSTEM 0.5 ml, M emoria l 23-valent 1-27 SYSTEM Route: IM, l vaccine 15:00: Drug Form: Herm hawa 00 INJ, Start date: 09/22/11 9:00:00, Stop date: 09/22/11 9:00:00 pneumococca 2012-0 No SYSTEM 0.5 ml, M emoria l 23-valent 1-27 SYSTEM Route: IM, l vaccine 15:00: Drug Form: Herm hawa 00 INJ, Start date: 09/22/11 9:00:00, Stop date: 09/22/11 9:00:00 Zofran 2011-0 No Veronica 4 mg, 2 Me moria 09-21 [place] mL, Route: l 17:34: [place] IVP, Drug Herm hawa 00 form: INJ, [...] 30 day, Stop date: 10/21/11 11:33:00 Zofran 2011-0 No Veronica 4 mg, 2 Me moria 1-26 [place] mL, Route: l 17:34: [place] IVP, Drug Herm hawa 00 form: INJ, Q8H, PRN Nausea, Start date: 09/21/11 11:34:00, Duration: 30 day, Stop date: 10/21/11 11:33:00 Ultram 50 2011-0 No Veronica 50 mg, 1 Memoria mg oral -26 Antoni[place] tab, l tablet 14:36: Jodie Route: PO, H ermann 00 Drug form: TAB, Q6H, PRN Pain, Start date: 09/21/11 8:36:00, Duration: 30 day, Stop date: 10/21/11 8:35:00 Tylenol 2011-0 No Veronica 650 mg, 2 Memoria -26 Antonieta tab, l 14:36: [place] Route: PO, Her brenner 00 Drug form: TAB, Q6H, PRN Pain, Start date: 09/21/11 8:36:00, Duration: 30 day, Stop date: 10/21/11 8:35:00 Ultram 50 2011-0 No Veronica 50 mg, 1 Memoria mg oral -26 Antonieta tab, l tablet 14:36: [place] Route: PO, H ermann 00 Drug form: TAB, Q6H, PRN Pain, Start date: 09/21/11 8:36:00, Duration: 30 day, Stop date: 10/21/11 8:35:00 Tylenol 2011-0 No Veronica 650 mg, 2 Memoria 09-21 Antonieta tab, l 14:36: Jodie Route: PO, Her brenner Drug form: TAB, Q6H, PRN Pain, Start date: 09/21/11 8:36:00, Duration: 30 day, Stop date: 10/21/11 8:35:00 Ultram 50 2011-0 No Veronica 50 mg, 1 Memoria mg oral 09-21 Antonieta tab, l tablet 14:36: [place] Route: PO, H ermann Drug form: TAB, Q6H, PRN Pain, Start date: 09/21/11 8:36:00, Duration: 30 day, Stop date: 10/21/11 8:35:00 Tylenol 2011-0 No Veronica 650 mg, 2 Memoria 09-21 Antonieta tab, l 14:36: Jodie Route: PO, Her brenner Drug form: TAB, Q6H, PRN Pain, Start date: 09/21/11 8:36:00, Duration: 30 day, Stop date: 10/21/11 8:35:00 Ultram 50 2011-0 No Veronica 50 mg, 1 Memoria mg oral 09-21 [place] tab, l tablet 14:36: [place] Route: PO, H ermann 00 Drug form: TAB, Q6H, PRN Pain, Start date: 09/21/11 8:36:00, Duration: 30 day, Stop date: 10/21/11 8:35:00 Tylenol 2011-0 No Evronica 650 mg, 2 Memoria 09-21 Antonieta tab, l 14:36: [place] Route: PO, Her brenner Drug form: TAB, Q6H, PRN Pain, Start date: 09/21/11 8:36:00, Duration: 30 day, Stop date: 10/21/11 8:35:00 Zosyn 2011-0 No Veronica 3.375 gm, M emoria 09-21 Antoni[place] Route: l 14:00: [place] IVPB, Drug Her brenner 00 form: PDR/INJ, ABXQ6H, Start date: 09/21/11 8:00:00, Duration: 30 day, Stop date: 10/21/11 2:00:00 Zosyn 2011-0 No Veronica 3.375 gm, Tere gonzalezria 09-21 Antonieta Route: l 14:00: [facility] IVPB, Drug Her brenner 00 form: PDR/INJ, ABXQ6H, Start date: 09/21/11 8:00:00, Duration: 30 day, Stop date: 10/21/11 2:00:00 Zosyn 2011-0 No Veronica 3.375 gm, Tere gonzalezria 09-21 Antonieta Route: l 14:00: [place] IVPB, Drug Her brenner 00 form: PDR/INJ, ABXQ6H, Start date: 09/21/11 8:00:00, Duration: 30 day, Stop date: 10/21/11 2:00:00 Zosyn 2011-0 No Veronica 3.375 gm, Tere gonzalezriemmanuel 09-21 Antonieta Route: l 14:00: [facility] IVPB, Drug Her brenner 00 form: PDR/INJ, ABXQ6H, Start date: 09/21/11 8:00:00, Duration: 30 day, Stop date: 10/21/11 2:00:00 insulin No Kashif B. 3 unit, Memor ia aspart 09-21 [place] 0.03 mL, l 13:30: Route: 00 SUB-Q, Drug form: SOLN, TID-Before Meals, PRN Blood Glucose Results, Start date: 09/21/11 7:30:00, Duration: 30 day, Stop date: 10/21/11 7:29:00 Dextrose 2011-0 No Kashif B. 12.5 gm, Mem oria [...] 30 day, Stop date: 10/21/11 7:29:00 insulin 2011-0 No Kashif B. 3 unit, Memor ia aspart - [place] 0.03 mL, l 13:30: Route: SUB-Q, Drug form: SOLN, TID-Before Meals, PRN Blood Glucose Results, Start date: 09/21/11 7:30:00, Duration: 30 day, Stop date: 10/21/11 7:29:00 Dextrose 2011-0 No Kashif B. 12.5 gm, Mem oria 50% Syringe 09-21 [place] 25 mL, l 13:30: Route: 00 IVP, Drug Form: INJ, PRN, PRN Blood Glucose Results, Start date: 09/21/11 7:30:00, Duration: 30 day, Stop date: 10/21/11 7:29:00 glucagon 2011-0 No Kashif B. 1 mg, Memori a 09-21 [place] Route: IM, l 13:30: Drug form: [place] 00 PDR/INJ, PRN, PRN Blood Glucose Results, Start date: 09/21/11 7:30:00, Duration: 30 day, Stop date: 10/21/11 7:29:00 insulin 2011-0 No Kashif B. 3 unit, Memor ia aspart 09-21 [place] 0.03 mL, l 13:30: Route: SUB-Q, Drug form: SOLN, TID-Before Meals, PRN Blood Glucose Results, Start date: 09/21/11 7:30:00, Duration: 30 day, Stop date: 10/21/11 7:29:00 Dextrose 2011-0 No Kashif B. 12.5 gm, Mem oria [...] 09-21 [place] 0.03 mL, l 13:30: Route: [place] 00 SUB-Q, Drug form: SOLN, TID-Before Meals, PRN Blood Glucose Results, Start date: 09/21/11 7:30:00, Duration: 30 day, Stop date: 10/21/11 7:29:00 Dextrose 2011- No Kashif B. 12.5 gm, Mem oria 50% Syringe 09-21 [place] 25 mL, l 13:30: Route: [place] 00 IVP, Drug Form: INJ, PRN, PRN Blood Glucose Results, Start date: 09/21/11 7:30:00, Duration: 30 day, Stop date: 10/21/11 7:29:00 glucagon 2011-0 No Kashif B. 1 mg, Memori a 09-21 [place] Route: IM, l 13:30: Drug form: 00 PDR/INJ, PRN, PRN Blood Glucose Results, Start date: 09/21/11 7:30:00, Duration: 30 day, Stop date: 10/21/11 7:29:00 Zosyn 2011- No Ajita 3.375 gm, Memori a 09-21 Liz Route: l 11:54: [facility] IVPB, 00 ONCE, Priority: STAT, Start date: 09/21/11 5:54:00, Stop date: 09/21/11 5:54:00 Zosyn 2011-0 No Ajita 3.375 gm, Memori a 09-21 Liz Route: l 11:54: [facility] IVPB, [place] 00 ONCE, Priority: STAT, Start date: 09/21/11 5:54:00, Stop date: 09/21/11 5:54:00 Zosyn 0 No Ajita 3.375 gm, Memori a 09-21 Liz Route: l 11:54: [facility] IVPB, 00 ONCE, Priority: STAT, Start date: 09/21/11 5:54:00, Stop date: 09/21/11 5:54:00 Zosyn 2011-0 No Ajita 3.375 gm, Memori a - Liz Route: l 11:54: [facility] IVPB, 00 ONCE, Priority: STAT, Start date: 09/21/11 5:54:00, Stop date: 09/21/11 5:54:00 morphine 2011-0 No Ajita 4 mg, 1 Memor ia Sulfate - Liz mL, Route: l 10:01: [place] IVP, Drug [place] 00 form: INJ, ONCE, Priority: STAT, Start date: 09/21/11 4:01:00, Stop date: 09/21/11 4:01:00 morphine 2011-0 No Ajita 4 mg, 1 Memor ia Sulfate - Liz mL, Route: l 10:01: [place] IVP, Drug [place] 00 form: INJ, ONCE, Priority: STAT, Start date: 09/21/11 4:01:00, Stop date: 09/21/11 4:01:00 morphine 2011-0 No Ajita 4 mg, 1 Memor ia Sulfate - Liz mL, Route: l 10:01: [place] IVP, Drug 00 form: INJ, ONCE, Priority: STAT, Start date: 09/21/11 4:01:00, Stop date: 09/21/11 4:01:00 morphine 2011-0 No Ajita 4 mg, 1 Memor ia Sulfate 09-21 Liz mL, Route: l 10:01: [place] IVP, Drug [place] 00 form: INJ, ONCE, Priority: STAT, Start date: 09/21/11 4:01:00, Stop date: 09/21/11 4:01:00 Sodium 2011-0 No Ajita 1,000 mL, Memor ia Chloride - Liz Rate: l 0.9% 08:14: Bing 1,000 (Bolus) IV 00 ml/hr, 1,000 mL Infuse over: 1 hr, Route: IV, Total Volume: 1,000, Bolus Dose, Priority: STAT, Start date: 09/21/11 2:14:00, Duration: 1 doses or times, Stop date: 09/21/11 3:13:00 Sodium 2011-0 No Ajita 1,000 mL, Memor ia Chloride 09-21 Liz Rate: l 0.9% 08:14: Smart 1,000 Hooper (Bolus) IV 00 ml/hr, 1,000 mL Infuse over: 1 hr, Route: IV, Total Volume: 1,000, Bolus Dose, Priority: STAT, Start date: 09/21/11 2:14:00, Duration: 1 doses or times, Stop date: 09/21/11 3:13:00 Sodium 2011-0 No Ajita 1,000 mL, Memor ia Chloride 09-21 Liz Rate: l 0.9% 08:14: Bing 1,000 (Bolus) IV 00 ml/hr, 1,000 mL Infuse over: 1 hr, Route: IV, Total Volume: 1,000, Bolus Dose, Priority: STAT, Start date: 09/21/11 2:14:00, Duration: 1 doses or times, Stop date: 09/21/11 3:13:00 Sodium 2011-0 No Ajita 1,000 mL, Memor ia Chloride 09-21 Liz Rate: l 0.9% 08:14: Bing 1,000 (Bolus) IV 00 ml/hr, 1,000 mL Infuse over: 1 hr, Route: IV, Total Volume: 1,000, Bolus Dose, Priority: STAT, Start date: 09/21/11 2:14:00, Duration: 1 doses or times, Stop date: 09/21/11 3:13:00 morphine 2011-0 No Ajita 4 mg, 1 Memor ia Sulfate 09-21 Liz mL, Route: l 06:55: [facility] IVP, Drug Ho[place] 00 form: INJ, ONCE, Priority: STAT, Start date: 09/21/11 0:55:00, Stop date: 09/21/11 0:55:00 ondansetron 2011-0 No Ajita 4 mg, 2 Me moria - Liz mL, Route: l 06:55: Smart [...] moria - Liz mL, Route: l 06:55: [facility] IVP, Drug 00 form: INJ, ONCE, Priority: STAT, Start date: 09/21/11 0:55:00, Stop date: 09/21/11 0:55:00 morphine 2011-0 No Ajita 4 mg, 1 Memor ia Sulfate 09-21 Liz mL, Route: l 06:55: [facility] IVP, Drug Ho[place] 00 form: INJ, ONCE, Priority: STAT, Start date: 09/21/11 0:55:00, Stop date: 09/21/11 0:55:00 ondansetron 2011-0 No Ajita 4 mg, 2 Me moria - Liz mL, Route: l 06:55: [facility] IVP, Drug Hooper 00 form: INJ, ONCE, Priority: STAT, Start date: 09/21/11 0:55:00, Stop date: 09/21/11 0:55:00 morphine 2011-0 No Ajita 4 mg, 1 Memor ia Sulfate 09-21 Liz mL, Route: l 06:55: [facility] IVP, Drug Hooper 00 form: INJ, ONCE, Priority: STAT, Start date: 09/21/11 0:55:00, Stop date: 09/21/11 0:55:00 ondansetron 2011-0 No Ajita 4 mg, 2 Me moria - Liz mL, Route: l 06:55: [facility] IVP, Drug Hooper 00 form: INJ, ONCE, Priority: STAT, Start date: 09/21/11 0:55:00, Stop date: 09/21/11 0:55:00 Sodium 2011-0 No Ajita 1,000 mL, Memor ia Chloride - Liz Rate: l 0.9% 06:47: Bing 1,000 Hooper (Bolus) IV 00 ml/hr, 1,000 mL Infuse over: 1 hr, Route: IV, Total Volume: 1,000, Bolus Dose, Priority: STAT, Start date: 09/21/11 0:47:00, Duration: 1 doses or times, Stop date: 09/21/11 1:46:00 Sodium 2011-0 No Ajita 1,000 mL, Memor ia Chloride - Liz Rate: l 0.9% 06:47: Smart 1,000 [...] Chloride 09-21 Liz Rate: l 0.9% 06:47: Bing 1,000 Hooper (Bolus) IV 00 ml/hr, 1,000 mL Infuse over: 1 hr, Route: IV, Total Volume: 1,000, Bolus Dose, Priority: STAT, Start date: 09/21/11 0:47:00, Duration: 1 doses or times, Stop date: 09/21/11 1:46:00 Zofran 2011-0 No Ajita 4 mg, 2 Memoria -26 Liz mL, Route: l 05:49: [place] IVP, Drug 00 form: INJ, ONCE, Priority: STAT, Start date: 09/20/11 23:49:00, Stop date: 09/20/11 23:49:00 Zofran 2012-0 No Ajita 4 mg, 2 Memoria -26 Liz mL, Route: l 05:49: [facility] IVP, Drug Ho[place] 00 form: INJ, ONCE, Priority: STAT, Start date: 09/20/11 23:49:00, Stop date: 09/20/11 23:49:00 Zofran 2011-0 No Ajita 4 mg, 2 Memoria 1-26 Liz mL, Route: l 05:49: [facility] IVP, Drug Ho[place] 00 form: INJ, ONCE, Priority: STAT, Start date: 09/20/11 23:49:00, Stop date: 09/20/11 23:49:00 Zofran 2011-0 No Ajita 4 mg, 2 Memoria 1-26 Liz mL, Route: l 05:49: [facility] IVP, Drug 00 form: INJ, ONCE, Priority: STAT, Start date: 09/20/11 23:49:00, Stop date: 09/20/11 23:49:00 Sodium 2011-0 No Ajita 500 mL, Memoria Chloride - Liz Rate: 500 l 0.9% 05:45: Smart ml/hr, Hooper (Bolus) IV 00 Infuse 500 mL over: 1 hr, Route: IV, Total Volume: 500, Bolus dose, Priority: STAT, Start date: 09/20/11 23:45:00, Duration: 1 doses or times, Stop date: 09/21/11 0:44:00 Saline 2011-0 No Ajita 5 ml, Memoria Flush 0.9% 09-21 Liz Route: l 05:45: [facility] IVP, Drug [place] 00 Form: INJ, PRN, PRN Line Flush, Start date: 09/20/11 23:45:00, Duration: 30 day, Stop date: 10/20/11 23:44:00 Sodium 2011-0 No Ajita 500 mL, Memoria Chloride 09-21 Liz Rate: 500 l 0.9% 05:45: Smart ml/hr, Hooper (Bolus) IV 00 Infuse 500 mL over: 1 hr, Route: IV, Total Volume: 500, Bolus dose, Priority: STAT, Start date: 09/20/11 23:45:00, Duration: 1 doses or times, Stop date: 09/21/11 0:44:00 Saline 2011-0 No Ajita 5 ml, Memoria Flush 0.9% 09-21 Liz Route: l 05:45: [facility] IVP, Drug Ho[place] 00 Form: INJ, PRN, PRN Line Flush, Start date: 09/20/11 23:45:00, Duration: 30 day, Stop date: 10/20/11 23:44:00 Sodium 2011-0 No Ajita 500 mL, Memoria Chloride 09-21 Liz Rate: 500 l 0.9% 05:45: Smart ml/hr, Hooper (Bolus) IV 00 Infuse 500 mL over: 1 hr, Route: IV, Total Volume: 500, Bolus dose, Priority: STAT, Start date: 09/20/11 23:45:00, Duration: 1 doses or times, Stop date: 09/21/11 0:44:00 Saline No Ajita 5 ml, Memoria Flush 0.9% 09-21 Liz Route: l 05:45: [facility] IVP, Drug Ho[place] 00 Form: INJ, PRN, PRN Line Flush, Start date: 09/20/11 23:45:00, Duration: 30 day, Stop date: 10/20/11 23:44:00 Sodium 2011-0 No Ajita 500 mL, Memoria Chloride 09-21 Liz Rate: 500 l 0.9% 05:45: Smart ml/hr, Hooper (Bolus) IV 00 Infuse 500 mL over: 1 hr, Route: IV, Total Volume: 500, Bolus dose, Priority: STAT, Start date: 09/20/11 23:45:00, Duration: 1 doses or times, Stop date: 09/21/11 0:44:00 Saline 2011- No Ajita 5 ml, Memoria Flush 0.9% 09-21 Liz Route: l 05:45: [facility] IVP, Drug Ho[place] 00 Form: INJ, PRN, PRN Line Flush, Start date: 09/20/11 23:45:00, Duration: 30 day, Stop date: 10/20/11 23:44:00 metFORmin 2011- Yes Substituti Me moria 1-26 on Allowed l 05:20: Hooper 02 metFORmin Yes Substituti Me moria 1-26 on Allowed l 05:20: 02 metFORmin 2011- Yes Substituti Me moria 1-26 on Allowed l 05:20: Hooper 02 metFORmin Yes Substituti Me moria 1-26 on Allowed l 05:20: 02 True Metrix True Metrix No True A zalea Glucose Glucose Metrix [facility] Test Strip Test Strip Glucose dic CHECK TWICE CHECK TWICE Test Strip Sports A DAY A DAY CHECK Medicin TWICE A e DAY acetaminoph acetaminoph No acetaminop Mary Jo en 300 en 300 hen 300 [facility] mg-codeine mg-codeine mg-codeine dic 60 mg 60 mg 60 mg Sports tablet TAKE tablet TAKE tablet Medicin 1 TABLET BY 1 TABLET BY TAKE 1 e MOUTH EVERY MOUTH EVERY TABLET BY 8 (EIGHT) 8 (EIGHT) MOUTH HOURS IF HOURS IF EVERY 8 NEEDED FOR NEEDED FOR (EIGHT) MODERATE MODERATE HOURS IF PAIN FOR UP PAIN FOR UP NEEDED FOR TO 7 DAYS TO 7 DAYS MODERATE PAIN FOR UP TO 7 DAYS acetazolami acetazolami No acetazolam Mary Jo de 250 mg de 250 mg june 250 mg [facility] tablet tablet tablet dic Sports Medicin e amlodipine amlodipine No 10mg amlodipine Mary Jo 10 mg 10 mg 10 mg [facility] tablet 10 tablet 10 tablet 10 dic mg by oral mg by oral mg by oral Sports route. route. route. Medicin e amlodipine amlodipine No amlodipine Mary Jo 5 mg tablet 5 mg tablet 5 mg O rthope TAKE 1 TAKE 1 tablet dic TABLET BY TABLET BY TAKE 1 Spo rts MOUTH EVERY MOUTH EVERY TABLET BY Medicin DAY FOR 90 DAY FOR 90 MOUTH e DAYS DAYS EVERY DAY FOR 90 DAYS amoxicillin amoxicillin No amoxicilli Mary Jo 875 mg 875 mg n 875 mg [facility] tablet TAKE tablet TAKE tablet dic 1 TABLET BY 1 TABLET BY TAKE 1 Sports MOUTH TWICE MOUTH TWICE TABLET BY Medicin A DAY A DAY MOUTH e TWICE A DAY amoxicillin amoxicillin No amoxicilli Mary Jo 875 875 n 875 [facility] mg-potassiu mg-potassiu mg-potassi dic m m um Sports clavulanate clavulanate clavulanat Medicin 125 mg 125 mg e 125 mg e tablet TAKE tablet TAKE tablet 1 TABLET BY 1 TABLET BY TAKE 1 MOUTH TWICE MOUTH TWICE TABLET BY A DAY FOR A DAY FOR MOUTH 10 DAYS FOR 10 DAYS FOR TWICE A SINUS SINUS DAY FOR 10 INFECTION INFECTION DAYS FOR SINUS INFECTION azelastine azelastine No azelastine Mary Jo 137 mcg 137 mcg 137 mcg Orth[facility] e (0.1 %) (0.1 %) (0.1 %) dic nasal spray nasal spray nasal Sports aerosol USE aerosol USE spray Medicin 1 SPRAY IN 1 SPRAY IN aerosol e EACH EACH USE 1 NOSTRIL NOSTRIL SPRAY IN TWICE A DAY TWICE A DAY EACH DIRECTED DIRECTED NOSTRIL TWICE A DAY DIRECTED azithromyci azithromyci No azithromyc Mary Jo n 250 mg n 250 mg in 250 mg Or thope tablet tablet tablet dic Sports Medicin e Basaglar Basaglar No Basaglar Aza marya KwikPen KwikPen KwikPen [facility] e U-100 U-100 U-100 dic Insulin 100 Insulin 100 Insulin Sports unit/mL (3 unit/mL (3 100 Med icin mL) mL) unit/mL (3 e subcutaneou subcutaneou mL) s INJECT 22 s INJECT 22 subcutaneo UNITS UNDER UNITS UNDER us INJECT THE SKIN 1 THE SKIN 1 22 UNITS (ONE) TIME (ONE) TIME UNDER THE EACH DAY EACH DAY SKIN 1 MAX UPTO 26 MAX UPTO 26 (ONE) TIME UNITS DAILY UNITS DAILY EACH DAY MAX UPTO 26 UNITS DAILY BD BD No BD Mary Jo Ultra-Fine Ultra-Fine Ultra-Fine [facility] Micro Pen Micro Pen Micro Pen dic Needle 32 Needle 32 Needle 32 Sports gauge x gauge x gauge x Medici n 08/30" USE TO 08/30" USE TO 08/30" USE e INJECT INJECT TO INJECT INSULIN INSULIN INSULIN ONCE EVERY ONCE EVERY ONCE EVERY DAY DAY DAY BD BD No BD Mary Jo Ultra-Fine Ultra-Fine Ultra-Fine [facility] Mini Pen Mini Pen Mini Pen dic Needle 31 Needle 31 Needle 31 Sports gauge x gauge x gauge x Medici n 11/09" USE 11/09" USE 11/09" USE e TO TEST TO TEST TO TEST TWICE A DAY TWICE A DAY TWICE A DAY benzonatate benzonatate No benzonatat Mary Jo 100 mg 100 mg e 100 mg [facility] capsule capsule capsule dic TAKE 1 TAKE 1 TAKE 1 Sports CAPSULE BY CAPSULE BY CAPSULE BY Medicin MOUTH THREE MOUTH THREE MOUTH e TIMES A DAY TIMES A DAY THREE NEEDED NEEDED TIMES A FOR COUGH FOR COUGH DAY NEEDED FOR COUGH cephalexin cephalexin No cephalexin Mary Jo 250 mg 250 mg 250 mg [facility] capsule capsule capsule dic TAKE 1 TAKE 1 TAKE 1 Sports CAPSULE CAPSULE CAPSULE Medici n EVERY 6 EVERY 6 EVERY 6 e HOURS BY HOURS BY HOURS BY ORAL ROUTE ORAL ROUTE ORAL ROUTE DIRECTED DIRECTED FOR 10 FOR 10 DIRECTED DAYS. DAYS. FOR 10 DAYS. ciprofloxac ciprofloxac No ciprofloxa Mary Jo in 500 mg in 500 mg fay 500 mg [facility] tablet TAKE tablet TAKE tablet dic 1 TABLET BY 1 TABLET BY TAKE 1 Sports MOUTH EVERY MOUTH EVERY TABLET BY Medicin 12 HOURS 12 HOURS MOUTH e FOR 7 DAYS FOR 7 DAYS EVERY 12 HOURS FOR 7 DAYS diazepam 5 diazepam 5 No diazepam 5 Mary Jo mg tablet mg tablet mg tablet [facility] Take 1 Take 1 Take 1 dic tablet tablet tablet Sports every 6 every 6 every 6 Medici n hours by hours by hours by e oral route oral route oral route as needed. as needed. as needed. diclofenac diclofenac No diclofenac Mary Jo 20 20 20 [facility] mg/gram/act mg/gram/act mg/gram/ac dic uation (2 uation (2 tuation (2 Sports %) topical %) topical %) topical Medicin soln soln soln e metered-dos metered-dos metered-do e pump e pump se pump APPLY 20 APPLY 20 APPLY 20 DROPS TO DROPS TO DROPS TO THE THE THE AFFECTED AFFECTED AFFECTED AREAS 4 AREAS 4 AREAS 4 TIMES DAILY TIMES DAILY TIMES DAILY docusate docusate No docusate Aza marya sodium 100 sodium 100 sodium 100 [facility] mg capsule mg capsule mg capsule dic Take 1 Take 1 Take 1 Sports capsule capsule capsule Medici n twice a day twice a day twice a e by oral by oral day by route as route as oral route directed. directed. as directed. donepezil 5 donepezil 5 No donepezil Mary Jo mg tablet mg tablet 5 mg Orth[facility] pe tablet dic Sports Medicin e fluocinonid fluocinonid No fluocinoni Mary Jo e 0.05 % e 0.05 % de 0.05 % Or thope topical gel topical gel topical dic APPLY 1-2 APPLY 1-2 gel APPLY Sports GRAMS TO GRAMS TO 1-2 GRAMS Me dicin THE THE TO THE e AFFECTED AFFECTED AFFECTED AREA 2 AREA 2 AREA 2 TIMES A DAY TIMES A DAY TIMES A DAY fluticasone fluticasone No fluticason Mary Jo propionate propionate e Ort hope 50 50 propionate dic mcg/actuati mcg/actuati 50 S ports on nasal on nasal mcg/actuat M edicin spray,suspe spray,suspe ion nasal e nsion USE 2 nsion USE 2 spray,susp SPRAYS EACH SPRAYS EACH ension USE SIDE DAILY SIDE DAILY 2 SPRAYS FOR NASAL FOR NASAL EACH SIDE DRAINAGE DRAINAGE DAILY FOR AND AND NASAL ALLERGIES ALLERGIES DRAINAGE AND ALLERGIES glimepiride glimepiride No .5mg glimepirid Mary Jo 1 mg tablet 1 mg tablet e 1 mg [facility] 0.5 mg by 0.5 mg by tablet 0.5 dic oral route. oral route. mg by oral Sports route. Medicin e hydrocodone hydrocodone No hydrocodon Mary Jo 10 10 e 10 [facility] mg-acetamin mg-acetamin mg-acetami dic ophen 325 ophen 325 nophen 325 Sports mg tablet mg tablet mg tablet Medicin TAKE 1 TAKE 1 TAKE 1 e TABLET BY TABLET BY TABLET BY MOUTH EVERY MOUTH EVERY MOUTH 4 HOURS 4 HOURS EVERY 4 NEEDED NEEDED HOURS NEEDED Januvia 100 Januvia 100 No Januvia Mary Jo mg tablet mg tablet 100 mg Ort hope TAKE 1 TAKE 1 tablet dic TABLET BY TABLET BY TAKE 1 Spo rts MOUTH EVERY MOUTH EVERY TABLET BY Medicin MORNING MORNING MOUTH e EVERY MORNING Levemir Levemir No Levemir Mary Jo FlexTouch FlexTouch FlexTouch [facility] U-100 U-100 U-100 dic Insulin 100 Insulin 100 Insulin Sports unit/mL (3 unit/mL (3 100 Med icin mL) mL) unit/mL (3 e subcutaneou subcutaneou mL) s pen s pen subcutaneo INJECT 14 INJECT 14 us pen UNITS UNITS INJECT 14 SUBCUTANEOU SUBCUTANEOU UNITS SLY DAILY SLY DAILY SUBCUTANEO USLY DAILY levocetiriz levocetiriz No 5mg levocetiri Mary Jo ine 5 mg ine 5 mg zine 5 mg Or thope tablet 5 mg tablet 5 mg tablet 5 dic by oral by oral mg by oral Spo rts route. route. route. Medicin e lidocaine-p lidocaine-p No lidocaine- Mary Jo rilocaine rilocaine prilocaine [facility] 2.5 %-2.5 % 2.5 %-2.5 % 2.5 %-2.5 dic topical topical % topical Spor ts cream APPLY cream APPLY cream Medicin ? GRAM TO ? GRAM TO APPLY ? e THE THE GRAM TO AFFECTED AFFECTED THE AREA(S) 2 AREA(S) 2 AFFECTED TIMES A DAY TIMES A DAY AREA(S) 2 NEEDED NEEDED TIMES A DAY NEEDED lisinopril lisinopril No 20mg lisinopril Mary Jo 5 mg tablet 5 mg tablet 5 mg O rthope 20 mg by 20 mg by tablet 20 di c oral route. oral route. mg by oral Sports route. Medicin e methocarbam methocarbam No methocarba Mary Jo ol 500 mg ol 500 mg mol 500 mg [facility] tablet Take tablet Take tablet dic 1 tablet 1 tablet Take 1 Sport s every 6 every 6 tablet Medicin hours by hours by every 6 e oral route oral route hours by as needed. as needed. oral route as needed. methocarbam methocarbam No methocarba Mary Jo ol 750 mg ol 750 mg mol 750 mg [facility] tablet Take tablet Take tablet dic 1 tablet 1 tablet Take 1 Sport s every 6 every 6 tablet Medicin hours by hours by every 6 e oral route oral route hours by as needed. as needed. oral route as needed. methylpredn methylpredn No methylpred Mary Jo isolone 4 isolone 4 nisolone 4 [facility] mg tablets mg tablets mg tablets dic in a dose in a dose in a dose Sports pack USE pack USE pack USE Medicin DIRECTED DIRECTED e DIRECTED metronidazo metronidazo No metronidaz Mary Jo le 500 mg le 500 mg ole 500 mg [facility] tablet TAKE tablet TAKE tablet dic 1 TABLET BY 1 TABLET BY TAKE 1 Sports MOUTH EVERY MOUTH EVERY TABLET BY Medicin 8 HOURS 8 HOURS MOUTH e EVERY 8 HOURS Novolog Novolog No Novolog Mary Jo FlexPen FlexPen FlexPen [facility] e U-100 U-100 U-100 dic Insulin Insulin Insulin Sports aspart 100 aspart 100 aspart 100 Medicin unit/mL (3 unit/mL (3 unit/mL (3 e mL) mL) mL) subcutaneou subcutaneou subcutaneo s INJECT 6 s INJECT 6 us INJECT UNITS UNDER UNITS UNDER 6 UNITS THE SKIN 3 THE SKIN 3 UNDER THE TIMES A DAY TIMES A DAY SKIN 3 TIMES A DAY ondansetron ondansetron No ondansetro Mary Jo 4 mg 4 mg n 4 mg [facility] disintegrat disintegrat disintegra dic ing tablet ing tablet ting Spo rts tablet Medicin e ondansetron ondansetron No ondansetro Mary Jo HCl 4 mg HCl 4 mg n HCl 4 mg O rthope tablet Take tablet Take tablet dic 1 tablet 1 tablet Take 1 Sport s every 6 every 6 tablet Medicin hours by hours by every 6 e oral route oral route hours by as needed. as needed. oral route as needed. oseltamivir oseltamivir No oseltamivi Mary Jo 75 mg 75 mg r 75 mg [facility] capsule capsule capsule dic Sports Medicin e Paxlovid Paxlovid No Paxlovid Aza marya 150 mg-100 150 mg-100 150 mg-100 [facility] mg tablets mg tablets mg tablets dic in a dose in a dose in a dose Sports pack (Renal pack (Renal pack M edicin Dose)(EUA) Dose)(EUA) (Renal e TAKE 2 TAKE 2 Dose)(EUA) TABLETS BY TABLETS BY TAKE 2 MOUTH TWICE MOUTH TWICE TABLETS BY DAILY FOR 5 DAILY FOR 5 MOUTH DAYS. STOP DAYS. STOP TWICE LIPITOR AND LIPITOR AND DAILY FOR TAMSULOSIN TAMSULOSIN 5 DAYS. FOR ONE FOR ONE STOP WEEK WEEK LIPITOR AND TAMSULOSIN FOR ONE WEEK prednisone prednisone No prednisone Mary Jo 5 mg tablet 5 mg tablet 5 mg O rthope tablet dic Sports Medicin e sulfamethox sulfamethox No sulfametho Mary Jo azole 800 azole 800 xazole 800 [facility] mg-trimetho mg-trimetho mg-trimeth dic prim 160 mg prim 160 mg oprim 160 Sports tablet Take tablet Take mg tablet Medicin 1 tablet 1 tablet Take 1 e twice a day twice a day tablet by oral by oral twice a route as route as day by directed directed oral route for 10 for 10 as days. days. directed for 10 days. tramadol 50 tramadol 50 No tramadol [facility] Jo mg tablet mg tablet 50 mg Orth [facility] TAKE 1 TAKE 1 tablet dic TABLET BY TABLET BY TAKE 1 Spo rts MOUTH EVERY MOUTH EVERY TABLET BY Medicin 4 HOURS 4 HOURS MOUTH e NEEDED FOR NEEDED FOR EVERY 4 PAIN PAIN HOURS NEEDED FOR PAIN True Metrix True Metrix No True A zalea Glucose Glucose Metrix [facility] Meter USE Meter USE Glucose di c DIRECTED DIRECTED Meter USE Sports Medicin DIRECTED e True Metrix True Metrix No True A zalea Glucose Glucose Metrix [facility] Test Strip Test Strip Glucose dic CHECK TWICE CHECK TWICE Test Strip Sports A DAY A DAY CHECK Medicin TWICE A e DAY acetaminoph acetaminoph No acetaminop [facility] Jo en 300 en 300 hen 300 [facility] mg-codeine mg-codeine mg-codeine dic 60 mg 60 mg 60 mg Sports tablet TAKE tablet TAKE tablet Medicin 1 TABLET BY 1 TABLET BY TAKE 1 e MOUTH EVERY MOUTH EVERY TABLET BY 8 (EIGHT) 8 (EIGHT) MOUTH HOURS IF HOURS IF EVERY 8 NEEDED FOR NEEDED FOR (EIGHT) MODERATE MODERATE HOURS IF PAIN FOR UP PAIN FOR UP NEEDED FOR TO 7 DAYS TO 7 DAYS MODERATE PAIN FOR UP TO 7 DAYS amlodipine amlodipine No amlodipine Mary Jo 5 mg tablet 5 mg tablet 5 mg [facility] TAKE 1 TAKE 1 tablet dic TABLET BY TABLET BY TAKE 1 Spo rts MOUTH EVERY MOUTH EVERY TABLET BY Medicin DAY FOR 90 DAY FOR 90 MOUTH e DAYS DAYS EVERY DAY FOR 90 DAYS amoxicillin amoxicillin No amoxicilli Mayr Jo [phone] n 875 [facility] mg-potassiu mg-potassiu mg-potassi dic m m um Sports clavulanate clavulanate clavulanat Medicin 125 mg 125 mg e 125 mg e tablet TAKE tablet TAKE tablet 1 TABLET BY 1 TABLET BY TAKE 1 MOUTH TWICE MOUTH TWICE TABLET BY A DAY FOR A DAY FOR MOUTH 10 DAYS FOR 10 DAYS FOR TWICE A SINUS SINUS DAY FOR 10 INFECTION INFECTION DAYS FOR SINUS INFECTION azelastine azelastine No azelastine [facility] 137 mcg 137 mcg 137 mcg Orth[facility] e (0.1 %) (0.1 %) (0.1 %) dic nasal spray nasal spray nasal Sports aerosol USE aerosol USE spray Medicin 1 SPRAY IN 1 SPRAY IN aerosol e EACH EACH USE 1 NOSTRIL NOSTRIL SPRAY IN TWICE A DAY TWICE A DAY EACH DIRECTED DIRECTED NOSTRIL TWICE A DAY DIRECTED Basaglar Basaglar No Basaglar Aza marya KwikPen KwikPen KwikPen [facility] e U-100 U-100 U-100 dic Insulin 100 Insulin 100 Insulin Sports unit/mL (3 unit/mL (3 100 Med icin mL) mL) unit/mL (3 e subcutaneou subcutaneou mL) s INJECT 22 s INJECT 22 subcutaneo UNITS UNDER UNITS UNDER us INJECT THE SKIN 1 THE SKIN 1 22 UNITS (ONE) TIME (ONE) TIME UNDER THE EACH DAY EACH DAY SKIN 1 MAX UPTO 26 MAX UPTO 26 (ONE) TIME UNITS DAILY UNITS DAILY EACH DAY MAX UPTO 26 UNITS DAILY BD BD No BD [facility] Ultra-Fine Ultra-Fine Ultra-Fine [facility] Micro Pen Micro Pen Micro Pen dic Needle 32 Needle 32 Needle 32 Sports gauge x gauge x gauge x Medici n 08/30" USE TO 08/30" USE TO 08/30" USE e INJECT INJECT TO INJECT INSULIN INSULIN INSULIN ONCE EVERY ONCE EVERY ONCE EVERY DAY DAY DAY BD BD No BD [facility] Ultra-Fine Ultra-Fine Ultra-Fine [facility] Mini Pen Mini Pen Mini Pen dic Needle 31 Needle 31 Needle 31 Sports gauge x gauge x gauge x Medici n 11/09" USE 11/09" USE 11/09" USE e TO TEST TO TEST TO TEST TWICE A DAY TWICE A DAY TWICE A DAY benzonatate benzonatate No benzonatat [facility] 100 mg 100 mg e 100 mg [facility] capsule capsule capsule dic TAKE 1 TAKE 1 TAKE 1 Sports CAPSULE BY CAPSULE BY CAPSULE BY Medicin MOUTH THREE MOUTH THREE MOUTH e TIMES A DAY TIMES A DAY THREE NEEDED NEEDED TIMES A FOR COUGH FOR COUGH DAY NEEDED FOR COUGH ciprofloxac ciprofloxac No ciprofloxa [facility] in 500 mg in 500 mg fay 500 mg [facility] tablet TAKE tablet TAKE tablet dic 1 TABLET BY 1 TABLET BY TAKE 1 Sports MOUTH EVERY MOUTH EVERY TABLET BY Medicin 12 HOURS 12 HOURS MOUTH e FOR 7 DAYS FOR 7 DAYS EVERY 12 HOURS FOR 7 DAYS fluticasone fluticasone No fluticason [facility] propionate propionate e Ort hope 50 50 propionate dic mcg/actuati mcg/actuati 50 S ports on nasal on nasal mcg/actuat M edicin spray,suspe spray,suspe ion nasal e nsion USE 2 nsion USE 2 spray,susp SPRAYS EACH SPRAYS EACH ension USE SIDE DAILY SIDE DAILY 2 SPRAYS FOR NASAL FOR NASAL EACH SIDE DRAINAGE DRAINAGE DAILY FOR AND AND NASAL ALLERGIES ALLERGIES DRAINAGE AND ALLERGIES Januvia 100 Januvia 100 No Januvia Mary Jo mg tablet mg tablet 100 mg Ort hope TAKE 1 TAKE 1 tablet dic TABLET BY TABLET BY TAKE 1 Spo rts MOUTH EVERY MOUTH EVERY TABLET BY Medicin MORNING MORNING MOUTH e EVERY MORNING Levemir Levemir No Levemir [facility] FlexTouch FlexTouch FlexTouch [facility] U-100 U-100 U-100 dic Insulin 100 Insulin 100 Insulin Sports unit/mL (3 unit/mL (3 100 Med icin mL) mL) unit/mL (3 e subcutaneou subcutaneou mL) s pen s pen subcutaneo INJECT 14 INJECT 14 us pen UNITS UNITS INJECT 14 SUBCUTANEOU SUBCUTANEOU UNITS SLY DAILY SLY DAILY SUBCUTANEO USLY DAILY methocarbam methocarbam No methocarba [facility] ol 500 mg ol 500 mg mol 500 mg [facility] tablet TAKE tablet TAKE tablet dic 2 TABLETS 2 TABLETS TAKE 2 Spo rts BY MOUTH 4 BY MOUTH 4 TABLETS BY Medicin TIMES A DAY TIMES A DAY MOUTH 4 e FOR 7 DAYS FOR 7 DAYS TIMES A DAY FOR 7 DAYS methocarbam methocarbam No methocarba [facility] Jo ol 750 mg ol 750 mg mol 750 mg [facility] tablet TAKE tablet TAKE tablet dic 1 TABLET BY 1 TABLET BY TAKE 1 Sports MOUTH THREE MOUTH THREE TABLET BY Medicin TIMES A DAY TIMES A DAY MOUTH e THREE TIMES A DAY metronidazo metronidazo No metronidaz [facility] le 500 mg le 500 mg ole 500 mg [facility] tablet TAKE tablet TAKE tablet dic 1 TABLET BY 1 TABLET BY TAKE 1 Sports MOUTH EVERY MOUTH EVERY TABLET BY Medicin 8 HOURS 8 HOURS MOUTH e EVERY 8 HOURS Novolog Novolog No Novolog [facility] FlexPen FlexPen FlexPen [facility] e U-100 U-100 U-100 dic Insulin Insulin Insulin Sports aspart 100 aspart 100 aspart 100 Medicin unit/mL (3 unit/mL (3 unit/mL (3 e mL) mL) mL) subcutaneou subcutaneou subcutaneo s INJECT 6 s INJECT 6 us INJECT UNITS UNDER UNITS UNDER 6 UNITS THE SKIN 3 THE SKIN 3 UNDER THE TIMES A DAY TIMES A DAY SKIN 3 TIMES A DAY ondansetron ondansetron No ondansetro [facility] HCl 4 mg HCl 4 mg n HCl 4 mg [facility] tablet TAKE tablet TAKE tablet dic 1 TABLET BY 1 TABLET BY TAKE 1 Sports MOUTH TWICE MOUTH TWICE TABLET BY Medicin A DAY A DAY MOUTH e TWICE A DAY Paxlovid Paxlovid No Paxlovid Aza marya 150 mg-100 150 mg-100 150 mg-100 [facility] mg tablets mg tablets mg tablets dic in a dose in a dose in a dose Sports pack (Renal pack (Renal pack M edicin Dose)(EUA) Dose)(EUA) (Renal e TAKE 2 TAKE 2 Dose)(EUA) TABLETS BY TABLETS BY TAKE 2 MOUTH TWICE MOUTH TWICE TABLETS BY DAILY FOR 5 DAILY FOR 5 MOUTH DAYS. STOP DAYS. STOP TWICE LIPITOR AND LIPITOR AND DAILY FOR TAMSULOSIN TAMSULOSIN 5 DAYS. FOR ONE FOR ONE STOP WEEK WEEK LIPITOR AND TAMSULOSIN FOR ONE WEEK tramadol 50 tramadol 50 No tramadol [facility] mg tablet mg tablet 50 mg [facility] TAKE 1 TAKE 1 tablet dic TABLET BY TABLET BY TAKE 1 Spo rts MOUTH EVERY MOUTH EVERY TABLET BY Medicin 4 HOURS 4 HOURS MOUTH e NEEDED FOR NEEDED FOR EVERY 4 PAIN PAIN HOURS NEEDED FOR PAIN True Metrix True Metrix No True A zalea Glucose Glucose Metrix [facility] Meter USE Meter USE Glucose di c DIRECTED DIRECTED Meter USE Sports Medicin DIRECTED e True Metrix True Metrix No True A zalea Glucose Glucose Metrix [facility] Test Strip Test Strip Glucose dic CHECK TWICE CHECK TWICE Test Strip Sports A DAY A DAY CHECK Medicin TWICE A e DAY acetaminoph acetaminoph No acetaminop [facility] Jo en 300 en 300 hen 300 [facility] mg-codeine mg-codeine mg-codeine dic 60 mg 60 mg 60 mg Sports tablet TAKE tablet TAKE tablet Medicin 1 TABLET BY 1 TABLET BY TAKE 1 e MOUTH EVERY MOUTH EVERY TABLET BY 8 (EIGHT) 8 (EIGHT) MOUTH HOURS IF HOURS IF EVERY 8 NEEDED FOR NEEDED FOR (EIGHT) MODERATE MODERATE HOURS IF PAIN FOR UP PAIN FOR UP NEEDED FOR TO 7 DAYS TO 7 DAYS MODERATE PAIN FOR UP TO 7 DAYS amlodipine amlodipine No amlodipine [facility] 5 mg tablet 5 mg tablet 5 mg [facility] TAKE 1 TAKE 1 tablet dic TABLET BY TABLET BY TAKE 1 Spo rts MOUTH EVERY MOUTH EVERY TABLET BY Medicin DAY FOR 90 DAY FOR 90 MOUTH e DAYS DAYS EVERY DAY FOR 90 DAYS amoxicillin amoxicillin No amoxicilli [facility] 875 875 n 875 [facility] mg-potassiu mg-potassiu mg-potassi dic m m um Sports clavulanate clavulanate clavulanat Medicin 125 mg 125 mg e 125 mg e tablet TAKE tablet TAKE tablet 1 TABLET BY 1 TABLET BY TAKE 1 MOUTH TWICE MOUTH TWICE TABLET BY A DAY FOR A DAY FOR MOUTH 10 DAYS FOR 10 DAYS FOR TWICE A SINUS SINUS DAY FOR 10 INFECTION INFECTION DAYS FOR SINUS INFECTION azelastine azelastine No azelastine [facility] 137 mcg 137 mcg 137 mcg Orth[facility] e (0.1 %) (0.1 %) (0.1 %) dic nasal spray nasal spray nasal Sports aerosol USE aerosol USE spray Medicin 1 SPRAY IN 1 SPRAY IN aerosol e EACH EACH USE 1 NOSTRIL NOSTRIL SPRAY IN TWICE A DAY TWICE A DAY EACH DIRECTED DIRECTED NOSTRIL TWICE A DAY DIRECTED Basaglar Basaglar No Basaglar Aza marya KwikPen KwikPen KwikPen [facility] e U-100 U-100 U-100 dic Insulin 100 Insulin 100 Insulin Sports unit/mL (3 unit/mL (3 100 Med icin mL) mL) unit/mL (3 e subcutaneou subcutaneou mL) s INJECT 22 s INJECT 22 subcutaneo UNITS UNDER UNITS UNDER us INJECT THE SKIN 1 THE SKIN 1 22 UNITS (ONE) TIME (ONE) TIME UNDER THE EACH DAY EACH DAY SKIN 1 MAX UPTO 26 MAX UPTO 26 (ONE) TIME UNITS DAILY UNITS DAILY EACH DAY MAX UPTO 26 UNITS DAILY BD BD No BD [facility] Ultra-Fine Ultra-Fine Ultra-Fine [facility] Micro Pen Micro Pen Micro Pen dic Needle 32 Needle 32 Needle 32 Sports gauge x gauge x gauge x Medici n 08/30" USE TO 08/30" USE TO 08/30" USE e INJECT INJECT TO INJECT INSULIN INSULIN INSULIN ONCE EVERY ONCE EVERY ONCE EVERY DAY DAY DAY BD BD No BD [facility] Ultra-Fine Ultra-Fine Ultra-Fine [facility] Mini Pen Mini Pen Mini Pen dic Needle 31 Needle 31 Needle 31 Sports gauge x gauge x gauge x Medici n 11/09" USE 11/09" USE 11/09" USE e TO TEST TO TEST TO TEST TWICE A DAY TWICE A DAY TWICE A DAY benzonatate benzonatate No benzonatat [facility] 100 mg 100 mg e 100 mg [facility] capsule capsule capsule dic TAKE 1 TAKE 1 TAKE 1 Sports CAPSULE BY CAPSULE BY CAPSULE BY Medicin MOUTH THREE MOUTH THREE MOUTH e TIMES A DAY TIMES A DAY THREE NEEDED NEEDED TIMES A FOR COUGH FOR COUGH DAY NEEDED FOR COUGH ciprofloxac ciprofloxac No ciprofloxa [facility] in 500 mg in 500 mg fay 500 mg [facility] tablet TAKE tablet TAKE tablet dic 1 TABLET BY 1 TABLET BY TAKE 1 Sports MOUTH EVERY MOUTH EVERY TABLET BY Medicin 12 HOURS 12 HOURS MOUTH e FOR 7 DAYS FOR 7 DAYS EVERY 12 HOURS FOR 7 DAYS fluticasone fluticasone No fluticason [facility] propionate propionate e Ort hope 50 50 propionate dic mcg/actuati mcg/actuati 50 S ports on nasal on nasal mcg/actuat M edicin spray,suspe spray,suspe ion nasal e nsion USE 2 nsion USE 2 spray,susp SPRAYS EACH SPRAYS EACH ension USE SIDE DAILY SIDE DAILY 2 SPRAYS FOR NASAL FOR NASAL EACH SIDE DRAINAGE DRAINAGE DAILY FOR AND AND NASAL ALLERGIES ALLERGIES DRAINAGE AND ALLERGIES Januvia 100 Januvia 100 No Januvia [facility] mg tablet mg tablet 100 mg [facility] hope TAKE 1 TAKE 1 tablet dic TABLET BY TABLET BY TAKE 1 Spo rts MOUTH EVERY MOUTH EVERY TABLET BY Medicin MORNING MORNING MOUTH e EVERY MORNING Levemir Levemir No Levemir [facility] FlexTouch FlexTouch FlexTouch [facility] U-100 U-100 U-100 dic Insulin 100 Insulin 100 Insulin Sports unit/mL (3 unit/mL (3 100 Med icin mL) mL) unit/mL (3 e subcutaneou subcutaneou mL) s pen s pen subcutaneo INJECT 14 INJECT 14 us pen UNITS UNITS INJECT 14 SUBCUTANEOU SUBCUTANEOU UNITS SLY DAILY SLY DAILY SUBCUTANEO USLY DAILY methocarbam methocarbam No methocarba [facility] ol 500 mg ol 500 mg mol 500 mg [facility] tablet TAKE tablet TAKE tablet dic 2 TABLETS 2 TABLETS TAKE 2 Spo rts BY MOUTH 4 BY MOUTH 4 TABLETS BY Medicin TIMES A DAY TIMES A DAY MOUTH 4 e FOR 7 DAYS FOR 7 DAYS TIMES A DAY FOR 7 DAYS methocarbam methocarbam No methocarba [facility] ol 750 mg ol 750 mg mol 750 mg [facility] tablet TAKE tablet TAKE tablet dic 1 TABLET BY 1 TABLET BY TAKE 1 Sports MOUTH THREE MOUTH THREE TABLET BY Medicin TIMES A DAY TIMES A DAY MOUTH e THREE TIMES A DAY metronidazo metronidazo No metronidaz [facility] le 500 mg le 500 mg ole 500 mg [facility] tablet TAKE tablet TAKE tablet dic 1 TABLET BY 1 TABLET BY TAKE 1 Sports MOUTH EVERY MOUTH EVERY TABLET BY Medicin 8 HOURS 8 HOURS MOUTH e EVERY 8 HOURS Novolog Novolog No Novolog [facility] FlexPen FlexPen FlexPen [facility] e U-100 U-100 U-100 dic Insulin Insulin Insulin Sports aspart 100 aspart 100 aspart 100 Medicin unit/mL (3 unit/mL (3 unit/mL (3 e mL) mL) mL) subcutaneou subcutaneou subcutaneo s INJECT 6 s INJECT 6 us INJECT UNITS UNDER UNITS UNDER 6 UNITS THE SKIN 3 THE SKIN 3 UNDER THE TIMES A DAY TIMES A DAY SKIN 3 TIMES A DAY ondansetron ondansetron No ondansetro [facility] HCl 4 mg HCl 4 mg n HCl 4 mg [facility] tablet TAKE tablet TAKE tablet dic 1 TABLET BY 1 TABLET BY TAKE 1 Sports MOUTH TWICE MOUTH TWICE TABLET BY Medicin A DAY A DAY MOUTH e TWICE A DAY Paxlovid Paxlovid No Paxlovid Aza marya 150 mg-100 150 mg-100 150 mg-100 [facility] mg tablets mg tablets mg tablets dic in a dose in a dose in a dose Sports pack (Renal pack (Renal pack M edicin Dose)(EUA) Dose)(EUA) (Renal e TAKE 2 TAKE 2 Dose)(EUA) TABLETS BY TABLETS BY TAKE 2 MOUTH TWICE MOUTH TWICE TABLETS BY DAILY FOR 5 DAILY FOR 5 MOUTH DAYS. STOP DAYS. STOP TWICE LIPITOR AND LIPITOR AND DAILY FOR TAMSULOSIN TAMSULOSIN 5 DAYS. FOR ONE FOR ONE STOP WEEK WEEK LIPITOR AND TAMSULOSIN FOR ONE WEEK tramadol 50 tramadol 50 No tramadol [facility] mg tablet mg tablet 50 mg [facility] TAKE 1 TAKE 1 tablet dic TABLET BY TABLET BY TAKE 1 Spo rts MOUTH EVERY MOUTH EVERY TABLET BY Medicin 4 HOURS 4 HOURS MOUTH e NEEDED FOR NEEDED FOR EVERY 4 PAIN PAIN HOURS NEEDED FOR PAIN True Metrix True Metrix No True A zalea Glucose Glucose Metrix [facility] Meter USE Meter USE Glucose di c DIRECTED DIRECTED Meter USE Sports Medicin DIRECTED e True Metrix True Metrix No True A zalea Glucose Glucose Metrix [facility] Test Strip Test Strip Glucose dic CHECK TWICE CHECK TWICE Test Strip Sports A DAY A DAY CHECK Medicin TWICE A e DAY acetaminoph acetaminoph No acetaminop [facility] en 300 en 300 hen 300 [facility] mg-codeine mg-codeine mg-codeine dic 60 mg 60 mg 60 mg Sports tablet TAKE tablet TAKE tablet Medicin 1 TABLET BY 1 TABLET BY TAKE 1 e MOUTH EVERY MOUTH EVERY TABLET BY 8 (EIGHT) 8 (EIGHT) MOUTH HOURS IF HOURS IF EVERY 8 NEEDED FOR NEEDED FOR (EIGHT) MODERATE MODERATE HOURS IF PAIN FOR UP PAIN FOR UP NEEDED FOR TO 7 DAYS TO 7 DAYS MODERATE PAIN FOR UP TO 7 DAYS amlodipine amlodipine No amlodipine [facility] 5 mg tablet 5 mg tablet 5 mg [facility] TAKE 1 TAKE 1 tablet dic TABLET BY TABLET BY TAKE 1 Spo rts MOUTH EVERY MOUTH EVERY TABLET BY Medicin DAY FOR 90 DAY FOR 90 MOUTH e DAYS DAYS EVERY DAY FOR 90 DAYS amoxicillin amoxicillin No amoxicilli [facility] Jo 875 mg 875 mg n 875 mg [facility] tablet TAKE tablet TAKE tablet dic 1 TABLET BY 1 TABLET BY TAKE 1 Sports MOUTH TWICE MOUTH TWICE TABLET BY Medicin A DAY A DAY MOUTH e TWICE A DAY amoxicillin amoxicillin No amoxicilli [facility] 875 875 n 875 [facility] mg-potassiu mg-potassiu mg-potassi dic m m um Sports clavulanate clavulanate clavulanat Medicin 125 mg 125 mg e 125 mg e tablet TAKE tablet TAKE tablet 1 TABLET BY 1 TABLET BY TAKE 1 MOUTH TWICE MOUTH TWICE TABLET BY A DAY FOR A DAY FOR MOUTH 10 DAYS FOR 10 DAYS FOR TWICE A SINUS SINUS DAY FOR 10 INFECTION INFECTION DAYS FOR SINUS INFECTION acetaminoph acetaminoph No acetaminop [facility] Jo en 300 en 300 hen 300 [facility] mg-codeine mg-codeine mg-codeine dic 60 mg 60 mg 60 mg Sports tablet TAKE tablet TAKE tablet Medicin 1 TABLET BY 1 TABLET BY TAKE 1 e MOUTH EVERY MOUTH EVERY TABLET BY 8 HOURS 8 HOURS MOUTH EVERY 8 HOURS azelastine azelastine No azelastine [facility] 137 mcg 137 mcg 137 mcg [facility] e (0.1 %) (0.1 %) (0.1 %) dic nasal spray nasal spray nasal Sports aerosol USE aerosol USE spray Medicin 1 SPRAY IN 1 SPRAY IN aerosol e EACH EACH USE 1 NOSTRIL NOSTRIL SPRAY IN TWICE A DAY TWICE A DAY EACH DIRECTED DIRECTED NOSTRIL TWICE A DAY DIRECTED azithromyci azithromyci No azithromyc [facility] n 250 mg n 250 mg in 250 mg Or [facility]ope tablet tablet tablet dic Sports Medicin e Basaglar Basaglar No Basaglar Aza marya KwikPen KwikPen KwikPen [facility] e U-100 U-100 U-100 dic Insulin 100 Insulin 100 Insulin Sports unit/mL (3 unit/mL (3 100 Med icin mL) mL) unit/mL (3 e subcutaneou subcutaneou mL) s INJECT 22 s INJECT 22 subcutaneo UNITS UNDER UNITS UNDER us INJECT THE SKIN 1 THE SKIN 1 22 UNITS (ONE) TIME (ONE) TIME UNDER THE EACH DAY EACH DAY SKIN 1 MAX UPTO 26 MAX UPTO 26 (ONE) TIME UNITS DAILY UNITS DAILY EACH DAY MAX UPTO 26 UNITS DAILY BD BD No BD [facility] Ultra-Fine Ultra-Fine Ultra-Fine [facility] Micro Pen Micro Pen Micro Pen dic Needle 32 Needle 32 Needle 32 Sports gauge x gauge x gauge x Medici n 08/30" USE TO 08/30" USE TO 08/30" USE e INJECT INJECT TO INJECT INSULIN INSULIN INSULIN ONCE EVERY ONCE EVERY ONCE EVERY DAY DAY DAY BD BD No BD [facility] Ultra-Fine Ultra-Fine Ultra-Fine [facility] Mini Pen Mini Pen Mini Pen dic Needle 31 Needle 31 Needle 31 Sports gauge x gauge x gauge x Medici n 11/09" USE 11/09" USE 11/09" USE e TO TEST TO TEST TO TEST TWICE A DAY TWICE A DAY TWICE A DAY benzonatate benzonatate No benzonatat [facility] 100 mg 100 mg e 100 mg [facility] capsule capsule capsule dic TAKE 1 TAKE 1 TAKE 1 Sports CAPSULE BY CAPSULE BY CAPSULE BY Medicin MOUTH THREE MOUTH THREE MOUTH e TIMES A DAY TIMES A DAY THREE NEEDED NEEDED TIMES A FOR COUGH FOR COUGH DAY NEEDED FOR COUGH ciprofloxac ciprofloxac No ciprofloxa [facility] in 500 mg in 500 mg fay 500 mg [facility] tablet TAKE tablet TAKE tablet dic 1 TABLET BY 1 TABLET BY TAKE 1 Sports MOUTH EVERY MOUTH EVERY TABLET BY Medicin 12 HOURS 12 HOURS MOUTH e FOR 7 DAYS FOR 7 DAYS EVERY 12 HOURS FOR 7 DAYS amoxicillin amoxicillin No amoxicilli [facility] 875 875 n 875 [facility] mg-potassiu mg-potassiu mg-potassi dic m m um Sports clavulanate clavulanate clavulanat Medic[facility] 125 mg 125 mg e 125 mg e tablet TAKE tablet TAKE tablet 1 TABLET BY 1 TABLET BY TAKE 1 MOUTH TWICE MOUTH TWICE TABLET BY A DAY FOR 7 A DAY FOR 7 MOUTH DAYS DAYS TWICE A DAY FOR 7 DAYS fluticasone fluticasone No fluticason [facility] propionate propionate e Ort hope 50 50 propionate dic mcg/actuati mcg/actuati 50 S ports on nasal on nasal mcg/actuat M edicin spray,suspe spray,suspe ion nasal e nsion USE 2 nsion USE 2 spray,susp SPRAYS EACH SPRAYS EACH ension USE SIDE DAILY SIDE DAILY 2 SPRAYS FOR NASAL FOR NASAL EACH SIDE DRAINAGE DRAINAGE DAILY FOR AND AND NASAL ALLERGIES ALLERGIES DRAINAGE AND ALLERGIES Januvia 100 Januvia 100 No Januvia [facility] Jo mg tablet mg tablet 100 mg Ort hope TAKE 1 TAKE 1 tablet dic TABLET BY TABLET BY TAKE 1 Spo rts MOUTH EVERY MOUTH EVERY TABLET BY Medicin MORNING MORNING MOUTH e EVERY MORNING Levemir Levemir No Levemir [facility] FlexTouch FlexTouch FlexTouch [facility] U-100 U-100 U-100 dic Insulin 100 Insulin 100 Insulin Sports unit/mL (3 unit/mL (3 100 Med icin mL) mL) unit/mL (3 e subcutaneou subcutaneou mL) s pen s pen subcutaneo INJECT 14 INJECT 14 us pen UNITS UNITS INJECT 14 SUBCUTANEOU SUBCUTANEOU UNITS SLY DAILY SLY DAILY SUBCUTANEO USLY DAILY methocarbam methocarbam No methocarba [facility] ol 500 mg ol 500 mg mol 500 mg [facility] tablet TAKE tablet TAKE tablet dic 2 TABLETS 2 TABLETS TAKE 2 Spo rts BY MOUTH 4 BY MOUTH 4 TABLETS BY Medicin TIMES A DAY TIMES A DAY MOUTH 4 e FOR 7 DAYS FOR 7 DAYS TIMES A DAY FOR 7 DAYS atorvastati atorvastati No atorvastat [facility] n 40 mg n 40 mg in 40 mg [facility] pe tablet TAKE tablet TAKE tablet dic 1 TABLET BY 1 TABLET BY TAKE 1 Sports MOUTH EVERY MOUTH EVERY TABLET BY Medicin MORNING MORNING MOUTH e EVERY MORNING methocarbam methocarbam No methocarba [facility] Jo ol 750 mg ol 750 mg mol 750 mg [facility] tablet TAKE tablet TAKE tablet dic 1 TABLET BY 1 TABLET BY TAKE 1 Sports MOUTH THREE MOUTH THREE TABLET BY Medicin TIMES A DAY TIMES A DAY MOUTH e THREE TIMES A DAY metronidazo metronidazo No metronidaz [facility] le 500 mg le 500 mg ole 500 mg [facility] tablet TAKE tablet TAKE tablet dic 1 TABLET BY 1 TABLET BY TAKE 1 Sports MOUTH EVERY MOUTH EVERY TABLET BY Medicin 8 HOURS 8 HOURS MOUTH e EVERY 8 HOURS Novolog Novolog No Novolog [facility] FlexPen FlexPen FlexPen [facility] e U-100 U-100 U-100 dic Insulin Insulin Insulin Sports aspart 100 aspart 100 aspart 100 Medicin unit/mL (3 unit/mL (3 unit/mL (3 e mL) mL) mL) subcutaneou subcutaneou subcutaneo s INJECT 6 s INJECT 6 us INJECT UNITS UNDER UNITS UNDER 6 UNITS THE SKIN 3 THE SKIN 3 UNDER THE TIMES A DAY TIMES A DAY SKIN 3 TIMES A DAY ondansetron ondansetron No ondansetro [facility] HCl 4 mg HCl 4 mg n HCl 4 mg [facility] tablet TAKE tablet TAKE tablet dic 1 TABLET BY 1 TABLET BY TAKE 1 Sports MOUTH TWICE MOUTH TWICE TABLET BY Medicin A DAY A DAY MOUTH e TWICE A DAY oseltamivir oseltamivir No oseltamivi [facility] 75 mg 75 mg r 75 mg [facility] capsule capsule capsule dic Sports Medicin e Paxlovid Paxlovid No Paxlovid Aza marya 150 mg-100 150 mg-100 150 mg-100 [facility] mg tablets mg tablets mg tablets dic in a dose in a dose in a dose Sports pack (Renal pack (Renal pack M edicin Dose)(EUA) Dose)(EUA) (Renal e TAKE 2 TAKE 2 Dose)(EUA) TABLETS BY TABLETS BY TAKE 2 MOUTH TWICE MOUTH TWICE TABLETS BY DAILY FOR 5 DAILY FOR 5 MOUTH DAYS. STOP DAYS. STOP TWICE LIPITOR AND LIPITOR AND DAILY FOR TAMSULOSIN TAMSULOSIN 5 DAYS. FOR ONE FOR ONE STOP WEEK WEEK LIPITOR AND TAMSULOSIN FOR ONE WEEK prednisone prednisone No prednisone [facility] 5 mg tablet 5 mg tablet 5 mg [facility] tablet dic Sports Medicin e azelastine azelastine No azelastine [facility] 137 mcg 137 mcg 137 mcg [facility] e (0.1 %) (0.1 %) (0.1 %) dic nasal spray nasal spray nasal Sports aerosol USE aerosol USE spray Medicin 1 SPRAY IN 1 SPRAY IN aerosol e EACH EACH USE 1 NOSTRIL NOSTRIL SPRAY IN TWICE A DAY TWICE A DAY EACH DIRECTED DIRECTED NOSTRIL TWICE A DAY DIRECTED tramadol 50 tramadol 50 No tramadol [facility] mg tablet mg tablet 50 mg [facility] TAKE 1 TAKE 1 tablet dic TABLET BY TABLET BY TAKE 1 Spo rts MOUTH EVERY MOUTH EVERY TABLET BY Medicin 4 HOURS 4 HOURS MOUTH e NEEDED FOR NEEDED FOR EVERY 4 PAIN PAIN HOURS NEEDED FOR PAIN True Metrix True Metrix No True A zalea Glucose Glucose Metrix [facility] Meter USE Meter USE Glucose di c DIRECTED DIRECTED Meter USE Sports Medicin DIRECTED e True Metrix True Metrix No True A zalea Glucose Glucose Metrix [facility] Test Strip Test Strip Glucose dic CHECK TWICE CHECK TWICE Test Strip Sports A DAY A DAY CHECK Medicin TWICE A e DAY Basaglar Basaglar No Basaglar Aza marya KwikPen KwikPen KwikPen [facility] e U-100 U-100 U-100 dic Insulin 100 Insulin 100 Insulin Sports unit/mL (3 unit/mL (3 100 Med icin mL) mL) unit/mL (3 e subcutaneou subcutaneou mL) s INJECT 18 s INJECT 18 subcutaneo UNITS UNITS us INJECT SUBCUTANEOU SUBCUTANEOU 18 UNITS SLY EVERY SLY EVERY SUBCUTANEO DAY DAY USLY EVERY DAY acetaminoph acetaminoph No acetaminop [facility] en 300 en 300 hen 300 [facility] mg-codeine mg-codeine mg-codeine dic 60 mg 60 mg 60 mg Sports tablet TAKE tablet TAKE tablet Medicin 1 TABLET BY 1 TABLET BY TAKE 1 e MOUTH EVERY MOUTH EVERY TABLET BY 8 (EIGHT) 8 (EIGHT) MOUTH HOURS IF HOURS IF EVERY 8 NEEDED FOR NEEDED FOR (EIGHT) MODERATE MODERATE HOURS IF PAIN FOR UP PAIN FOR UP NEEDED FOR TO 7 DAYS TO 7 DAYS MODERATE PAIN FOR UP TO 7 DAYS BD BD No BD [facility] Ultra-Fine Ultra-Fine Ultra-Fine [facility] Micro Pen Micro Pen Micro Pen dic Needle 32 Needle 32 Needle 32 Sports gauge x gauge x gauge x Medici n 08/30" USE TO 08/30" USE TO 08/30" USE e INJECT INJECT TO INJECT INSULIN INSULIN INSULIN ONCE EVERY ONCE EVERY ONCE EVERY DAY DAY DAY amlodipine amlodipine No amlodipine [facility] 5 mg tablet 5 mg tablet 5 mg [facility] TAKE 1 TAKE 1 tablet dic TABLET BY TABLET BY TAKE 1 Spo rts MOUTH EVERY MOUTH EVERY TABLET BY Medicin DAY FOR 90 DAY FOR 90 MOUTH e DAYS DAYS EVERY DAY FOR 90 DAYS amoxicillin amoxicillin No amoxicilli [facility] Jo 875 mg 875 mg n 875 mg [facility] tablet TAKE tablet TAKE tablet dic 1 TABLET BY 1 TABLET BY TAKE 1 Sports MOUTH TWICE MOUTH TWICE TABLET BY Medicin A DAY A DAY MOUTH e TWICE A DAY amoxicillin amoxicillin No amoxicilli [facility] 875 875 n 875 [facility] mg-potassiu mg-potassiu mg-potassi dic m m um Sports clavulanate clavulanate clavulanat Medicin 125 mg 125 mg e 125 mg e tablet TAKE tablet TAKE tablet 1 TABLET BY 1 TABLET BY TAKE 1 MOUTH TWICE MOUTH TWICE TABLET BY A DAY FOR A DAY FOR MOUTH 10 DAYS FOR 10 DAYS FOR TWICE A SINUS SINUS DAY FOR 10 INFECTION INFECTION DAYS FOR SINUS INFECTION azelastine azelastine No azelastine [facility] 137 mcg 137 mcg 137 mcg Orth[facility] e (0.1 %) (0.1 %) (0.1 %) dic nasal spray nasal spray nasal Sports aerosol USE aerosol USE spray Medicin 1 SPRAY IN 1 SPRAY IN aerosol e EACH EACH USE 1 NOSTRIL NOSTRIL SPRAY IN TWICE A DAY TWICE A DAY EACH DIRECTED DIRECTED NOSTRIL TWICE A DAY DIRECTED azithromyci azithromyci No azithromyc [facility] Jo n 250 mg n 250 mg in 250 mg Or thope tablet tablet tablet dic Sports Medicin e Basaglar Basaglar No Basaglar Aza marya KwikPen KwikPen KwikPen [facility] e U-100 U-100 U-100 dic Insulin 100 Insulin 100 Insulin Sports unit/mL (3 unit/mL (3 100 Med icin mL) mL) unit/mL (3 e subcutaneou subcutaneou mL) s INJECT 22 s INJECT 22 subcutaneo UNITS UNDER UNITS UNDER us INJECT THE SKIN 1 THE SKIN 1 22 UNITS (ONE) TIME (ONE) TIME UNDER THE EACH DAY EACH DAY SKIN 1 MAX UPTO 26 MAX UPTO 26 (ONE) TIME UNITS DAILY UNITS DAILY EACH DAY MAX UPTO 26 UNITS DAILY BD BD No BD [facility] Ultra-Fine Ultra-Fine Ultra-Fine [facility] Micro Pen Micro Pen Micro Pen dic Needle 32 Needle 32 Needle 32 Sports gauge x gauge x gauge x Medici n 08/30" USE TO 08/30" USE TO 08/30" USE e INJECT INJECT TO INJECT INSULIN INSULIN INSULIN ONCE EVERY ONCE EVERY ONCE EVERY DAY DAY DAY BD BD No BD [facility] Ultra-Fine Ultra-Fine Ultra-Fine [facility] Mini Pen Mini Pen Mini Pen dic Needle 31 Needle 31 Needle 31 Sports gauge x gauge x gauge x Medici n 11/09" USE 11/09" USE 11/09" USE e TO TEST TO TEST TO TEST TWICE A DAY TWICE A DAY TWICE A DAY BD BD No BD [place] Ultra-Fine Ultra-Fine Ultra-Fine [facility] Mini Pen Mini Pen Mini Pen dic Needle 31 Needle 31 Needle 31 Sports gauge x gauge x gauge x Medici n 11/09" USE 11/09" USE 11/09" USE e TO TEST TO TEST TO TEST TWICE A DAY TWICE A DAY TWICE A DAY benzonatate benzonatate No benzonatat [facility] 100 mg 100 mg e 100 mg [facility] capsule capsule capsule dic TAKE 1 TAKE 1 TAKE 1 Sports CAPSULE BY CAPSULE BY CAPSULE BY Medicin MOUTH THREE MOUTH THREE MOUTH e TIMES A DAY TIMES A DAY THREE NEEDED NEEDED TIMES A FOR COUGH FOR COUGH DAY NEEDED FOR COUGH ciprofloxac ciprofloxac No ciprofloxa [facility] in 500 mg in 500 mg fay 500 mg [facility] tablet TAKE tablet TAKE tablet dic 1 TABLET BY 1 TABLET BY TAKE 1 Sports MOUTH EVERY MOUTH EVERY TABLET BY Medicin 12 HOURS 12 HOURS MOUTH e FOR 7 DAYS FOR 7 DAYS EVERY 12 HOURS FOR 7 DAYS diazepam 5 diazepam 5 No diazepam 5 [facility] mg tablet mg tablet mg tablet [facility] Take 1 Take 1 Take 1 dic tablet tablet tablet Sports every 6 every 6 every 6 Medici n hours by hours by hours by e oral route oral route oral route as needed. as needed. as needed. diclofenac diclofenac No diclofenac [facility] 20 20 20 [facility] mg/gram/act mg/gram/act mg/gram/ac dic uation (2 uation (2 tuation (2 Sports %) topical %) topical %) topical Medicin soln soln soln e metered-dos metered-dos metered-do e pump e pump se pump APPLY 20 APPLY 20 APPLY 20 DROPS TO DROPS TO DROPS TO THE THE THE AFFECTED AFFECTED AFFECTED AREAS 4 AREAS 4 AREAS 4 TIMES DAILY TIMES DAILY TIMES DAILY docusate docusate No docusate Aza marya sodium 100 sodium 100 sodium 100 [facility] mg capsule mg capsule mg capsule dic Take 1 Take 1 Take 1 Sports capsule capsule capsule Medici n twice a day twice a day twice a e by oral by oral day by route as route as oral route directed. directed. as directed. fluocinonid fluocinonid No fluocinoni [facility] e 0.05 % e 0.05 % de 0.05 % Or [facility]ope topical gel topical gel topical dic APPLY 1-2 APPLY 1-2 gel APPLY Sports GRAMS TO GRAMS TO 1-2 GRAMS Me dicin THE THE TO THE e AFFECTED AFFECTED AFFECTED AREA 2 AREA 2 AREA 2 TIMES A DAY TIMES A DAY TIMES A DAY fluticasone fluticasone No fluticason [facility] propionate propionate e Ort hope 50 50 propionate dic mcg/actuati mcg/actuati 50 S ports on nasal on nasal mcg/actuat M edicin spray,suspe spray,suspe ion nasal e nsion USE 2 nsion USE 2 spray,susp SPRAYS EACH SPRAYS EACH ension USE SIDE DAILY SIDE DAILY 2 SPRAYS FOR NASAL FOR NASAL EACH SIDE DRAINAGE DRAINAGE DAILY FOR AND AND NASAL ALLERGIES ALLERGIES DRAINAGE AND ALLERGIES benzonatate benzonatate No benzonatat [facility] 100 mg 100 mg e 100 mg [facility] capsule capsule capsule dic TAKE 1 TAKE 1 TAKE 1 Sports CAPSULE BY CAPSULE BY CAPSULE BY Medicin MOUTH THREE MOUTH THREE MOUTH e TIMES A DAY TIMES A DAY THREE NEEDED NEEDED TIMES A FOR COUGH FOR COUGH DAY NEEDED FOR COUGH hydrocodone hydrocodone No hydrocodon [facility] 10 10 e 10 [facility] mg-acetamin mg-acetamin mg-acetami dic ophen 325 ophen 325 nophen 325 Sports mg tablet mg tablet mg tablet Medicin TAKE 1 TAKE 1 TAKE 1 e TABLET BY TABLET BY TABLET BY MOUTH EVERY MOUTH EVERY MOUTH 4 HOURS 4 HOURS EVERY 4 NEEDED NEEDED HOURS NEEDED Januvia 100 Januvia 100 No Januvia [facility] mg tablet mg tablet 100 mg Ort hope TAKE 1 TAKE 1 tablet dic TABLET BY TABLET BY TAKE 1 Spo rts MOUTH EVERY MOUTH EVERY TABLET BY Medicin MORNING MORNING MOUTH e EVERY MORNING Keflex 250 Keflex 250 No 1capsul Q6H Keflex 250 [facility] mg capsule mg capsule e(s) mg capsule [facility] Take 1 Take 1 Take 1 dic capsule capsule capsule Sports every 6 every 6 every 6 Medici n hours by hours by hours by e oral route oral route oral route as directed as directed as for 10 for 10 directed days. days. for 10 days. Levemir Levemir No Levemir [facility] FlexTouch FlexTouch FlexTouch [facility] U-100 U-100 U-100 dic Insulin 100 Insulin 100 Insulin Sports unit/mL (3 unit/mL (3 100 Med icin mL) mL) unit/mL (3 e subcutaneou subcutaneou mL) s pen s pen subcutaneo INJECT 14 INJECT 14 us pen UNITS UNITS INJECT 14 SUBCUTANEOU SUBCUTANEOU UNITS SLY DAILY SLY DAILY SUBCUTANEO USLY DAILY lidocaine-p lidocaine-p No lidocaine- [facility] rilocaine rilocaine prilocaine [facility] 2.5 %-2.5 % 2.5 %-2.5 % 2.5 %-2.5 dic topical topical % topical Spor ts cream APPLY cream APPLY cream Medicin ? GRAM TO ? GRAM TO APPLY ? e THE THE GRAM TO AFFECTED AFFECTED THE AREA(S) 2 AREA(S) 2 AFFECTED TIMES A DAY TIMES A DAY AREA(S) 2 NEEDED NEEDED TIMES A DAY NEEDED celecoxib celecoxib No celecoxib [facility] 200 mg 200 mg 200 mg [facility] capsule capsule capsule dic TAKE 1 TAKE 1 TAKE 1 Sports CAPSULE BY CAPSULE BY CAPSULE BY Medicin MOUTH EVERY MOUTH EVERY MOUTH e DAY IN THE DAY IN THE EVERY DAY MORNING MORNING IN THE MORNING methocarbam methocarbam No methocarba [facility] ol 500 mg ol 500 mg mol 500 mg [facility] tablet TAKE tablet TAKE tablet dic 2 TABLETS 2 TABLETS TAKE 2 Spo rts BY MOUTH 4 BY MOUTH 4 TABLETS BY Medicin TIMES A DAY TIMES A DAY MOUTH 4 e FOR 7 DAYS FOR 7 DAYS TIMES A DAY FOR 7 DAYS methocarbam methocarbam No methocarba [facility] ol 750 mg ol 750 mg mol 750 mg [facility] tablet Take tablet Take tablet dic 1 tablet 1 tablet Take 1 Sport s every 6 every 6 tablet Medicin hours by hours by every 6 e oral route oral route hours by as needed. as needed. oral route as needed. metronidazo metronidazo No metronidaz [facility] le 500 mg le 500 mg ole 500 mg [facility] tablet TAKE tablet TAKE tablet dic 1 TABLET BY 1 TABLET BY TAKE 1 Sports MOUTH EVERY MOUTH EVERY TABLET BY Medicin 8 HOURS 8 HOURS MOUTH e EVERY 8 HOURS Novolog Novolog No Novolog [facility] FlexPen FlexPen FlexPen [facility] e U-100 U-100 U-100 dic Insulin Insulin Insulin Sports aspart 100 aspart 100 aspart 100 Medicin unit/mL (3 unit/mL (3 unit/mL (3 e mL) mL) mL) subcutaneou subcutaneou subcutaneo s INJECT 6 s INJECT 6 us INJECT UNITS UNDER UNITS UNDER 6 UNITS THE SKIN 3 THE SKIN 3 UNDER THE TIMES A DAY TIMES A DAY SKIN 3 TIMES A DAY ondansetron ondansetron No ondansetro [facility] HCl 4 mg HCl 4 mg n HCl 4 mg [facility] tablet Take tablet Take tablet dic 1 tablet 1 tablet Take 1 Sport s every 6 every 6 tablet Medicin hours by hours by every 6 e oral route oral route hours by as needed. as needed. oral route as needed. oseltamivir oseltamivir No oseltamivi [facility] 75 mg 75 mg r 75 mg [facility] capsule capsule capsule dic Sports Medicin e Paxlovid Paxlovid No Paxlovid Aza marya 150 mg-100 150 mg-100 150 mg-100 [facility] mg tablets mg tablets mg tablets dic in a dose in a dose in a dose Sports pack (Renal pack (Renal pack M edicin Dose)(EUA) Dose)(EUA) (Renal e TAKE 2 TAKE 2 Dose)(EUA) TABLETS BY TABLETS BY TAKE 2 MOUTH TWICE MOUTH TWICE TABLETS BY DAILY FOR 5 DAILY FOR 5 MOUTH DAYS. STOP DAYS. STOP TWICE LIPITOR AND LIPITOR AND DAILY FOR TAMSULOSIN TAMSULOSIN 5 DAYS. FOR ONE FOR ONE STOP WEEK WEEK LIPITOR AND TAMSULOSIN FOR ONE WEEK ciprofloxac ciprofloxac No ciprofloxa [facility] in 500 mg in 500 mg fay 500 mg [facility] tablet TAKE tablet TAKE tablet dic 1 TABLET BY 1 TABLET BY TAKE 1 Sports MOUTH TWICE MOUTH TWICE TABLET BY Medicin A DAY A DAY MOUTH e TWICE A DAY prednisone prednisone No prednisone [facility] 5 mg tablet 5 mg tablet 5 mg [facility] tablet dic Sports Medicin e sulfamethox sulfamethox No sulfametho [facility] azole 800 azole 800 xazole 800 [facility] mg-trimetho mg-trimetho mg-trimeth dic prim 160 mg prim 160 mg oprim 160 Sports tablet Take tablet Take mg tablet Medicin 1 tablet 1 tablet Take 1 e twice a day twice a day tablet by oral by oral twice a route as route as day by directed directed oral route for 10 for 10 as days. days. directed for 10 days. tramadol 50 tramadol 50 No tramadol [facility] mg tablet mg tablet 50 mg [facility] TAKE 1 TAKE 1 tablet dic TABLET BY TABLET BY TAKE 1 Spo rts MOUTH EVERY MOUTH EVERY TABLET BY Medicin 4 HOURS 4 HOURS MOUTH e NEEDED FOR NEEDED FOR EVERY 4 PAIN PAIN HOURS NEEDED FOR PAIN True Metrix True Metrix No True A zalea Glucose Glucose Metrix [facility] Meter USE Meter USE Glucose di c DIRECTED DIRECTED Meter USE Sports Medicin DIRECTED e True Metrix True Metrix No True A zalea Glucose Glucose Metrix [facility] Test Strip Test Strip Glucose dic CHECK TWICE CHECK TWICE Test Strip Sports A DAY A DAY CHECK Medicin TWICE A e DAY clopidogrel clopidogrel No clopidogre [facility] 75 mg 75 mg l 75 mg [facility] tablet TAKE tablet TAKE tablet dic 1 TABLET BY 1 TABLET BY TAKE 1 Sports MOUTH EVERY MOUTH EVERY TABLET BY Medicin DAY FOR 90 DAY FOR 90 MOUTH e DAYS DAYS EVERY DAY FOR 90 DAYS fluticasone fluticasone No fluticason [facility] propionate propionate e Ort hope 50 50 propionate dic mcg/actuati mcg/actuati 50 S ports on nasal on nasal mcg/actuat M edicin spray,suspe spray,suspe ion nasal e nsion USE 1 nsion USE 1 spray,susp SPRAY IN SPRAY IN ension USE EACH EACH 1 SPRAY IN NOSTRIL NOSTRIL EACH EVERY DAY EVERY DAY NOSTRIL EVERY DAY acetaminoph acetaminoph No acetaminop [facility] en 300 en 300 hen 300 [facility] mg-codeine mg-codeine mg-codeine dic 60 mg 60 mg 60 mg Sports tablet TAKE tablet TAKE tablet Medicin 1 TABLET BY 1 TABLET BY TAKE 1 e MOUTH EVERY MOUTH EVERY TABLET BY 8 (EIGHT) 8 (EIGHT) MOUTH HOURS IF HOURS IF EVERY 8 NEEDED FOR NEEDED FOR (EIGHT) MODERATE MODERATE HOURS IF PAIN FOR UP PAIN FOR UP NEEDED FOR TO 7 DAYS TO 7 DAYS MODERATE PAIN FOR UP TO 7 DAYS amlodipine amlodipine No amlodipine [facility] 5 mg tablet 5 mg tablet 5 mg O [facility] TAKE 1 TAKE 1 tablet dic TABLET BY TABLET BY TAKE 1 Spo rts MOUTH EVERY MOUTH EVERY TABLET BY Medicin DAY FOR 90 DAY FOR 90 MOUTH e DAYS DAYS EVERY DAY FOR 90 DAYS amoxicillin amoxicillin No amoxicilli [facility] 875 mg 875 mg n 875 mg [facility] tablet TAKE tablet TAKE tablet dic 1 TABLET BY 1 TABLET BY TAKE 1 Sports MOUTH TWICE MOUTH TWICE TABLET BY Medicin A DAY A DAY MOUTH e TWICE A DAY glimepiride glimepiride No glimepirid [facility] 4 mg tablet 4 mg tablet e 4 mg [facility] TAKE 1 TAKE 1 tablet dic TABLET BY TABLET BY TAKE 1 Spo rts MOUTH TWICE MOUTH TWICE TABLET BY Medicin A DAY A DAY MOUTH e TWICE A DAY amoxicillin amoxicillin No amoxicilli [facility] 875 875 n 875 [facility] mg-potassiu mg-potassiu mg-potassi dic m m um Sports clavulanate clavulanate clavulanat Medicin 125 mg 125 mg e 125 mg e tablet TAKE tablet TAKE tablet 1 TABLET BY 1 TABLET BY TAKE 1 MOUTH TWICE MOUTH TWICE TABLET BY A DAY FOR A DAY FOR MOUTH 10 DAYS FOR 10 DAYS FOR TWICE A SINUS SINUS DAY FOR 10 INFECTION INFECTION DAYS FOR SINUS INFECTION azelastine azelastine No azelastine [facility] 137 mcg 137 mcg 137 mcg [facility] e (0.1 %) (0.1 %) (0.1 %) dic nasal spray nasal spray nasal Sports aerosol USE aerosol USE spray Medicin 1 SPRAY IN 1 SPRAY IN aerosol e EACH EACH USE 1 NOSTRIL NOSTRIL SPRAY IN TWICE A DAY TWICE A DAY EACH DIRECTED DIRECTED NOSTRIL TWICE A DAY DIRECTED azithromyci azithromyci No azithromyc [facility] n 250 mg n 250 mg in 250 mg Or [facility]ope tablet tablet tablet dic Sports Medicin e Basaglar Basaglar No Basaglar Aza marya KwikPen KwikPen KwikPen [facility] e U-100 U-100 U-100 dic Insulin 100 Insulin 100 Insulin Sports unit/mL (3 unit/mL (3 100 Med icin mL) mL) unit/mL (3 e subcutaneou subcutaneou mL) s INJECT 22 s INJECT 22 subcutaneo UNITS UNDER UNITS UNDER us INJECT THE SKIN 1 THE SKIN 1 22 UNITS (ONE) TIME (ONE) TIME UNDER THE EACH DAY EACH DAY SKIN 1 MAX UPTO 26 MAX UPTO 26 (ONE) TIME UNITS DAILY UNITS DAILY EACH DAY MAX UPTO 26 UNITS DAILY BD BD No BD [facility] Ultra-Fine Ultra-Fine Ultra-Fine [facility] Micro Pen Micro Pen Micro Pen dic Needle 32 Needle 32 Needle 32 Sports gauge x gauge x gauge x Medici n 08/30" USE TO 08/30" USE TO 08/30" USE e INJECT INJECT TO INJECT INSULIN INSULIN INSULIN ONCE EVERY ONCE EVERY ONCE EVERY DAY DAY DAY BD BD No BD [facility] Ultra-Fine Ultra-Fine Ultra-Fine [facility] Mini Pen Mini Pen Mini Pen dic Needle 31 Needle 31 Needle 31 Sports gauge x gauge x gauge x Medici n 11/09" USE 11/09" USE 11/09" USE e TO TEST TO TEST TO TEST TWICE A DAY TWICE A DAY TWICE A DAY benzonatate benzonatate No benzonatat [facility] 100 mg 100 mg e 100 mg [facility] capsule capsule capsule dic TAKE 1 TAKE 1 TAKE 1 Sports CAPSULE BY CAPSULE BY CAPSULE BY Medicin MOUTH THREE MOUTH THREE MOUTH e TIMES A DAY TIMES A DAY THREE NEEDED NEEDED TIMES A FOR COUGH FOR COUGH DAY NEEDED FOR COUGH insulin insulin No insulin [facility] aspart aspart aspart [facility] (U-100) 100 (U-100) 100 (U-100) dic unit/mL (3 unit/mL (3 100 Spo rts mL) mL) unit/mL (3 Medicin subcutaneou subcutaneou mL) e s pen s pen subcutaneo INJECT 4 INJECT 4 us pen UNITS UNITS INJECT 4 SUBCUTANEOU SUBCUTANEOU UNITS SLY BEFORE SLY BEFORE SUBCUTANEO MEALS THREE MEALS THREE USLY TIMES DAILY TIMES DAILY BEFORE MEALS THREE TIMES DAILY ciprofloxac ciprofloxac No ciprofloxa [facility] in 500 mg in 500 mg fay 500 mg [facility] tablet TAKE tablet TAKE tablet dic 1 TABLET BY 1 TABLET BY TAKE 1 Sports MOUTH EVERY MOUTH EVERY TABLET BY Medicin 12 HOURS 12 HOURS MOUTH e FOR 7 DAYS FOR 7 DAYS EVERY 12 HOURS FOR 7 DAYS diazepam 5 diazepam 5 No diazepam 5 [facility] mg tablet mg tablet mg tablet [facility] Take 1 Take 1 Take 1 dic tablet tablet tablet Sports every 6 every 6 every 6 Medici n hours by hours by hours by e oral route oral route oral route as needed. as needed. as needed. diclofenac diclofenac No diclofenac [facility] 20 20 20 [facility] mg/gram/act mg/gram/act mg/gram/ac dic uation (2 uation (2 tuation (2 Sports %) topical %) topical %) topical [facility] soln soln soln e metered-dos metered-dos metered-do e pump e pump se pump APPLY 20 APPLY 20 APPLY 20 DROPS TO DROPS TO DROPS TO THE THE THE AFFECTED AFFECTED AFFECTED AREAS 4 AREAS 4 AREAS 4 TIMES DAILY TIMES DAILY TIMES DAILY docusate docusate No docusate Aza marya sodium 100 sodium 100 sodium 100 [facility] mg capsule mg capsule mg capsule dic Take 1 Take 1 Take 1 Sports capsule capsule capsule Medici n twice a day twice a day twice a e by oral by oral day by route as route as oral route directed. directed. as directed. fluocinonid fluocinonid No fluocinoni [facility] e 0.05 % e 0.05 % de 0.05 % Or [facility]ope topical gel topical gel topical dic APPLY 1-2 APPLY 1-2 gel APPLY Sports GRAMS TO GRAMS TO 1-2 GRAMS Me dicin THE THE TO THE e AFFECTED AFFECTED AFFECTED AREA 2 AREA 2 AREA 2 TIMES A DAY TIMES A DAY TIMES A DAY fluticasone fluticasone No fluticason [facility] propionate propionate e Ort hope 50 50 propionate dic mcg/actuati mcg/actuati 50 S ports on nasal on nasal mcg/actuat M edicin spray,suspe spray,suspe ion nasal e nsion USE 2 nsion USE 2 spray,susp SPRAYS EACH SPRAYS EACH ension USE SIDE DAILY SIDE DAILY 2 SPRAYS FOR NASAL FOR NASAL EACH SIDE DRAINAGE DRAINAGE DAILY FOR AND AND NASAL ALLERGIES ALLERGIES DRAINAGE AND ALLERGIES hydrocodone hydrocodone No hydrocodon Mray Jo 10 10 e 10 [facility] mg-acetamin mg-acetamin mg-acetami dic ophen 325 ophen 325 nophen 325 Sports mg tablet mg tablet mg tablet Medicin TAKE 1 TAKE 1 TAKE 1 e TABLET BY TABLET BY TABLET BY MOUTH EVERY MOUTH EVERY MOUTH 4 HOURS 4 HOURS EVERY 4 NEEDED NEEDED HOURS NEEDED isosorbide isosorbide No isosorbide [facility] mononitrate mononitrate mononitrat [facility] ER 30 mg ER 30 mg e ER 30 mg d ic tablet,exte tablet,exte tablet,ext Sports nded nded ended Medicin release 24 release 24 release 24 e hr TAKE 1 hr TAKE 1 hr TAKE 1 TABLET BY TABLET BY TABLET BY MOUTH EVERY MOUTH EVERY MOUTH DAY IN THE DAY IN THE EVERY DAY MORNING MORNING IN THE MORNING Januvia 100 Januvia 100 No Januvia [facility] mg tablet mg tablet 100 mg Ort hope TAKE 1 TAKE 1 tablet dic TABLET BY TABLET BY TAKE 1 Spo rts MOUTH EVERY MOUTH EVERY TABLET BY Medicin MORNING MORNING MOUTH e EVERY MORNING Keflex 250 Keflex 250 No 1capsul Q6H Keflex 250 [facility] mg capsule mg capsule e(s) mg capsule [facility] Take 1 Take 1 Take 1 dic capsule capsule capsule Sports every 6 every 6 every 6 Medici n hours by hours by hours by e oral route oral route oral route as directed as directed as for 10 for 10 directed days. days. for 10 days. Levemir Levemir No Levemir [facility] FlexTouch FlexTouch FlexTouch [facility] U-100 U-100 U-100 dic Insulin 100 Insulin 100 Insulin Sports unit/mL (3 unit/mL (3 100 Med icin mL) mL) unit/mL (3 e subcutaneou subcutaneou mL) s pen s pen subcutaneo INJECT 14 INJECT 14 us pen UNITS UNITS INJECT 14 SUBCUTANEOU SUBCUTANEOU UNITS SLY DAILY SLY DAILY SUBCUTANEO USLY DAILY lidocaine-p lidocaine-p No lidocaine- [facility] rilocaine rilocaine prilocaine [facility] 2.5 %-2.5 % 2.5 %-2.5 % 2.5 %-2.5 dic topical topical % topical Spor ts cream APPLY cream APPLY cream Medicin ? GRAM TO ? GRAM TO APPLY ? e THE THE GRAM TO AFFECTED AFFECTED THE AREA(S) 2 AREA(S) 2 AFFECTED TIMES A DAY TIMES A DAY AREA(S) 2 NEEDED NEEDED TIMES A DAY NEEDED methocarbam methocarbam No methocarba [facility] ol 500 mg ol 500 mg mol 500 mg [facility] tablet TAKE tablet TAKE tablet dic 2 TABLETS 2 TABLETS TAKE 2 Spo rts BY MOUTH 4 BY MOUTH 4 TABLETS BY Medicin TIMES A DAY TIMES A DAY MOUTH 4 e FOR 7 DAYS FOR 7 DAYS TIMES A DAY FOR 7 DAYS methocarbam methocarbam No methocarba [facility] ol 750 mg ol 750 mg mol 750 mg [facility] tablet Take tablet Take tablet dic 1 tablet 1 tablet Take 1 Sport s every 6 every 6 tablet Medicin hours by hours by every 6 e oral route oral route hours by as needed. as needed. oral route as needed. Januvia 100 Januvia 100 No Januvia [facility] mg tablet mg tablet 100 mg Ort hope TAKE 1 TAKE 1 tablet dic TABLET BY TABLET BY TAKE 1 Spo rts MOUTH EVERY MOUTH EVERY TABLET BY Medicin MORNING MORNING MOUTH e EVERY MORNING metronidazo metronidazo No metronidaz [facility] le 500 mg le 500 mg ole 500 mg [facility] tablet TAKE tablet TAKE tablet dic 1 TABLET BY 1 TABLET BY TAKE 1 Sports MOUTH EVERY MOUTH EVERY TABLET BY Medicin 8 HOURS 8 HOURS MOUTH e EVERY 8 HOURS Novolog Novolog No Novolog [facility] FlexPen FlexPen FlexPen [facility] e U-100 U-100 U-100 dic Insulin Insulin Insulin Sports aspart 100 aspart 100 aspart 100 Medicin unit/mL (3 unit/mL (3 unit/mL (3 e mL) mL) mL) subcutaneou subcutaneou subcutaneo s INJECT 6 s INJECT 6 us INJECT UNITS UNDER UNITS UNDER 6 UNITS THE SKIN 3 THE SKIN 3 UNDER THE TIMES A DAY TIMES A DAY SKIN 3 TIMES A DAY ondansetron ondansetron No ondansetro [facility] HCl 4 mg HCl 4 mg n HCl 4 mg [facility] tablet Take tablet Take tablet dic 1 tablet 1 tablet Take 1 Sport s every 6 every 6 tablet Medicin hours by hours by every 6 e oral route oral route hours by as needed. as needed. oral route as needed. oseltamivir oseltamivir No oseltamivi [facility] 75 mg 75 mg r 75 mg [facility] capsule capsule capsule dic Sports Medicin e Paxlovid Paxlovid No Paxlovid Aza marya 150 mg-100 150 mg-100 150 mg-100 [facility] mg tablets mg tablets mg tablets dic in a dose in a dose in a dose Sports pack (Renal pack (Renal pack M edicin Dose)(EUA) Dose)(EUA) (Renal e TAKE 2 TAKE 2 Dose)(EUA) TABLETS BY TABLETS BY TAKE 2 MOUTH TWICE MOUTH TWICE TABLETS BY DAILY FOR 5 DAILY FOR 5 MOUTH DAYS. STOP DAYS. STOP TWICE LIPITOR AND LIPITOR AND DAILY FOR TAMSULOSIN TAMSULOSIN 5 DAYS. FOR ONE FOR ONE STOP WEEK WEEK LIPITOR AND TAMSULOSIN FOR ONE WEEK prednisone prednisone No prednisone [facility] 5 mg tablet 5 mg tablet 5 mg O [facility] tablet dic Sports Medicin e sulfamethox sulfamethox No sulfametho [facility] azole 800 azole 800 xazole 800 [facility] mg-trimetho mg-trimetho mg-trimeth dic prim 160 mg prim 160 mg oprim 160 Sports tablet Take tablet Take mg tablet Medicin 1 tablet 1 tablet Take 1 e twice a day twice a day tablet by oral by oral twice a route as route as day by directed directed oral route for 10 for 10 as days. days. directed for 10 days. Levemir Levemir No Levemir [facility] FlexTouch FlexTouch FlexTouch [facility] U-100 U-100 U-100 dic Insulin 100 Insulin 100 Insulin Sports unit/mL (3 unit/mL (3 100 Med icin mL) mL) unit/mL (3 e subcutaneou subcutaneou mL) s pen s pen subcutaneo INJECT 14 INJECT 14 us pen UNITS UNITS INJECT 14 SUBCUTANEOU SUBCUTANEOU UNITS SLY DAILY SLY DAILY SUBCUTANEO USLY DAILY tramadol 50 tramadol 50 No tramadol [facility] mg tablet mg tablet 50 mg [facility] TAKE 1 TAKE 1 tablet dic TABLET BY TABLET BY TAKE 1 Spo rts MOUTH EVERY MOUTH EVERY TABLET BY Medicin 4 HOURS 4 HOURS MOUTH e NEEDED FOR NEEDED FOR EVERY 4 PAIN PAIN HOURS NEEDED FOR PAIN True Metrix True Metrix No True A zalea Glucose Glucose Metrix [facility] Meter USE Meter USE Glucose di c DIRECTED DIRECTED Meter USE Sports Medicin DIRECTED e True Metrix True Metrix No True A zalea Glucose Glucose Metrix [facility] Test Strip Test Strip Glucose dic CHECK TWICE CHECK TWICE Test Strip Sports A DAY A DAY CHECK Medicin TWICE A e DAY lisinopril lisinopril No lisinopril [facility] 20 mg 20 mg 20 mg [facility] tablet TAKE tablet TAKE tablet dic 1 TABLET BY 1 TABLET BY TAKE 1 Sports MOUTH TWICE MOUTH TWICE TABLET BY Medicin A DAY FOR A DAY FOR MOUTH e 90 DAYS 90 DAYS TWICE A DAY FOR 90 DAYS methocarbam methocarbam No methocarba [facility] ol 500 mg ol 500 mg mol 500 mg [facility] tablet TAKE tablet TAKE tablet dic 2 TABLETS 2 TABLETS TAKE 2 Spo rts BY MOUTH 4 BY MOUTH 4 TABLETS BY Medicin TIMES A DAY TIMES A DAY MOUTH 4 e FOR 7 DAYS FOR 7 DAYS TIMES A DAY FOR 7 DAYS methocarbam methocarbam No methocarba [facility] ol 750 mg ol 750 mg mol 750 mg [facility] tablet TAKE tablet TAKE tablet dic 1 TABLET BY 1 TABLET BY TAKE 1 Sports MOUTH THREE MOUTH THREE TABLET BY Medicin TIMES A DAY TIMES A DAY MOUTH e THREE TIMES A DAY metoprolol metoprolol No metoprolol [facility] tartrate 25 tartrate 25 tartrate [facility] mg tablet mg tablet 25 mg dic TAKE 1/2 TAKE 1/2 tablet Sport s TABLET BY TABLET BY TAKE 1/2 M edicin MOUTH TWICE MOUTH TWICE TABLET BY e EVERY DAY EVERY DAY MOUTH TWICE EVERY DAY metronidazo metronidazo No metronidaz [facility] le 500 mg le 500 mg ole 500 mg [facility] tablet TAKE tablet TAKE tablet dic 1 TABLET BY 1 TABLET BY TAKE 1 Sports MOUTH EVERY MOUTH EVERY TABLET BY Medicin 8 HOURS 8 HOURS MOUTH e EVERY 8 HOURS acetaminoph acetaminoph No acetaminop [facility] en 300 en 300 hen 300 [facility] mg-codeine mg-codeine mg-codeine dic 60 mg 60 mg 60 mg Sports tablet TAKE tablet TAKE tablet Medicin 1 TABLET BY 1 TABLET BY TAKE 1 e MOUTH EVERY MOUTH EVERY TABLET BY 8 (EIGHT) 8 (EIGHT) MOUTH HOURS IF HOURS IF EVERY 8 NEEDED FOR NEEDED FOR (EIGHT) MODERATE MODERATE HOURS IF PAIN FOR UP PAIN FOR UP NEEDED FOR TO 7 DAYS TO 7 DAYS MODERATE PAIN FOR UP TO 7 DAYS amlodipine amlodipine No amlodipine [facility] 5 mg tablet 5 mg tablet 5 mg O [facility] TAKE 1 TAKE 1 tablet dic TABLET BY TABLET BY TAKE 1 Spo rts MOUTH EVERY MOUTH EVERY TABLET BY Medicin DAY FOR 90 DAY FOR 90 MOUTH e DAYS DAYS EVERY DAY FOR 90 DAYS amoxicillin amoxicillin No amoxicilli [facility] 875 mg 875 mg n 875 mg [facility] tablet TAKE tablet TAKE tablet dic 1 TABLET BY 1 TABLET BY TAKE 1 Sports MOUTH TWICE MOUTH TWICE TABLET BY Medicin A DAY A DAY MOUTH e TWICE A DAY amoxicillin amoxicillin No amoxicilli [facility] 875 875 n 875 [facility] mg-potassiu mg-potassiu mg-potassi dic m m Sports clavulanate clavulanate clavulanat Medicin 125 mg 125 mg e 125 mg e tablet TAKE tablet TAKE tablet 1 TABLET BY 1 TABLET BY TAKE 1 MOUTH TWICE MOUTH TWICE TABLET BY A DAY FOR A DAY FOR MOUTH 10 DAYS FOR 10 DAYS FOR TWICE A SINUS SINUS DAY FOR 10 INFECTION INFECTION DAYS FOR SINUS INFECTION azelastine azelastine No azelastine [facility] 137 mcg 137 mcg 137 mcg [facility] e (0.1 %) (0.1 %) (0.1 %) dic nasal spray nasal spray nasal Sports aerosol USE aerosol USE spray Medicin 1 SPRAY IN 1 SPRAY IN aerosol e EACH EACH USE 1 NOSTRIL NOSTRIL SPRAY IN TWICE A DAY TWICE A DAY EACH DIRECTED DIRECTED NOSTRIL TWICE A DAY DIRECTED azithromyci azithromyci No azithromyc [facility] n 250 mg n 250 mg in 250 mg Or thope tablet tablet tablet dic Sports Medicin e Basaglar Basaglar No Basaglar Aza marya KwikPen KwikPen KwikPen [facility] e U-100 U-100 U-100 dic Insulin 100 Insulin 100 Insulin Sports unit/mL (3 unit/mL (3 100 Med icin mL) mL) unit/mL (3 e subcutaneou subcutaneou mL) s INJECT 22 s INJECT 22 subcutaneo UNITS UNDER UNITS UNDER us INJECT THE SKIN 1 THE SKIN 1 22 UNITS (ONE) TIME (ONE) TIME UNDER THE EACH DAY EACH DAY SKIN 1 MAX UPTO 26 MAX UPTO 26 (ONE) TIME UNITS DAILY UNITS DAILY EACH DAY MAX UPTO 26 UNITS DAILY nitroglycer nitroglycer No nitroglyce [facility] in 0.4 mg in 0.4 mg rin 0.4 mg [facility] sublingual sublingual sublingual dic tablet tablet tablet Sports PLEASE SEE PLEASE SEE PLEASE SEE Medicin ATTACHED ATTACHED ATTACHED e FOR FOR FOR DETAILED DETAILED DETAILED DIRECTIONS DIRECTIONS DIRECTIONS BD BD No BD [facility] Ultra-Fine Ultra-Fine Ultra-Fine [facility] Micro Pen Micro Pen Micro Pen dic Needle 32 Needle 32 Needle 32 Sports gauge x gauge x gauge x Medici n 08/30" USE TO 08/30" USE TO 08/30" USE e INJECT INJECT TO INJECT INSULIN INSULIN INSULIN ONCE EVERY ONCE EVERY ONCE EVERY DAY DAY DAY BD BD No BD [facility] Ultra-Fine Ultra-Fine Ultra-Fine [facility] Mini Pen Mini Pen Mini Pen dic Needle 31 Needle 31 Needle 31 Sports gauge x gauge x gauge x Medici n 11/09" USE 11/09" USE 11/09" USE e TO TEST TO TEST TO TEST TWICE A DAY TWICE A DAY TWICE A DAY benzonatate benzonatate No benzonatat [facility] 100 mg 100 mg e 100 mg [facility] capsule capsule capsule dic TAKE 1 TAKE 1 TAKE 1 Sports CAPSULE BY CAPSULE BY CAPSULE BY Medicin MOUTH THREE MOUTH THREE MOUTH e TIMES A DAY TIMES A DAY THREE NEEDED NEEDED TIMES A FOR COUGH FOR COUGH DAY NEEDED FOR COUGH cephalexin cephalexin No cephalexin [facility] 250 mg 250 mg 250 mg [facility] capsule capsule capsule dic TAKE 1 TAKE 1 TAKE 1 Sports CAPSULE CAPSULE CAPSULE Medici n EVERY 6 EVERY 6 EVERY 6 e HOURS BY HOURS BY HOURS BY ORAL ROUTE ORAL ROUTE ORAL ROUTE DIRECTED DIRECTED FOR 10 FOR 10 DIRECTED DAYS. DAYS. FOR 10 DAYS. ciprofloxac ciprofloxac No ciprofloxa [facility] in 500 mg in 500 mg fay 500 mg [facility] tablet TAKE tablet TAKE tablet dic 1 TABLET BY 1 TABLET BY TAKE 1 Sports MOUTH EVERY MOUTH EVERY TABLET BY Medicin 12 HOURS 12 HOURS MOUTH e FOR 7 DAYS FOR 7 DAYS EVERY 12 HOURS FOR 7 DAYS diazepam 5 diazepam 5 No diazepam 5 [facility] mg tablet mg tablet mg tablet [facility] Take 1 Take 1 Take 1 dic tablet tablet tablet Sports every 6 every 6 every 6 Medici n hours by hours by hours by e oral route oral route oral route as needed. as needed. as needed. diclofenac diclofenac No diclofenac [facility] 20 20 20 [facility] mg/gram/act mg/gram/act mg/gram/ac dic uation (2 uation (2 tuation (2 Sports %) topical %) topical %) topical Medicin soln soln soln e metered-dos metered-dos metered-do e pump e pump se pump APPLY 20 APPLY 20 APPLY 20 DROPS TO DROPS TO DROPS TO THE THE THE AFFECTED AFFECTED AFFECTED AREAS 4 AREAS 4 AREAS 4 TIMES DAILY TIMES DAILY TIMES DAILY docusate docusate No docusate Aza marya sodium 100 sodium 100 sodium 100 [facility] mg capsule mg capsule mg capsule dic Take 1 Take 1 Take 1 Sports capsule capsule capsule Medici n twice a day twice a day twice a e by oral by oral day by route as route as oral route directed. directed. as directed. omeprazole omeprazole No omeprazole [facility] 40 mg 40 mg 40 mg [facility] capsule,del capsule,del capsule,de dic ayed ayed layed Sports release release release Medici n TAKE 1 TAKE 1 TAKE 1 e CAPSULE BY CAPSULE BY CAPSULE BY MOUTH EVERY MOUTH EVERY MOUTH DAY IN THE DAY IN THE EVERY DAY MORNING MORNING IN THE MORNING fluocinonid fluocinonid No fluocinoni [facility] e 0.05 % e 0.05 % de 0.05 % [facility] topical gel topical gel topical dic APPLY 1-2 APPLY 1-2 gel APPLY Sports GRAMS TO GRAMS TO 1-2 GRAMS Me dicin THE THE TO THE e AFFECTED AFFECTED AFFECTED AREA 2 AREA 2 AREA 2 TIMES A DAY TIMES A DAY TIMES A DAY fluticasone fluticasone No fluticason [facility] propionate propionate e Ort hope 50 50 propionate dic mcg/actuati mcg/actuati 50 S ports on nasal on nasal mcg/actuat M edicin spray,suspe spray,suspe ion nasal e nsion USE 2 nsion USE 2 spray,susp SPRAYS EACH SPRAYS EACH ension USE SIDE DAILY SIDE DAILY 2 SPRAYS FOR NASAL FOR NASAL EACH SIDE DRAINAGE DRAINAGE DAILY FOR AND AND NASAL ALLERGIES ALLERGIES DRAINAGE AND ALLERGIES hydrocodone hydrocodone No hydrocodon [facility] 10 10 e 10 [facility] mg-acetamin mg-acetamin mg-acetami dic ophen 325 ophen 325 nophen 325 Sports mg tablet mg tablet mg tablet Medicin TAKE 1 TAKE 1 TAKE 1 e TABLET BY TABLET BY TABLET BY MOUTH EVERY MOUTH EVERY MOUTH 4 HOURS 4 HOURS EVERY 4 NEEDED NEEDED HOURS NEEDED Januvia 100 Januvia 100 No Januvia [facility] mg tablet mg tablet 100 mg [facility] hope TAKE 1 TAKE 1 tablet dic TABLET BY TABLET BY TAKE 1 Spo rts MOUTH EVERY MOUTH EVERY TABLET BY Medicin MORNING MORNING MOUTH e EVERY MORNING Levemir Levemir No Levemir [facility] FlexTouch FlexTouch FlexTouch [facility] U-100 U-100 U-100 dic Insulin 100 Insulin 100 Insulin Sports unit/mL (3 unit/mL (3 100 Med icin mL) mL) unit/mL (3 e subcutaneou subcutaneou mL) s pen s pen subcutaneo INJECT 14 INJECT 14 us pen UNITS UNITS INJECT 14 SUBCUTANEOU SUBCUTANEOU UNITS SLY DAILY SLY DAILY SUBCUTANEO USLY DAILY ondansetron ondansetron No ondansetro [facility] HCl 4 mg HCl 4 mg n HCl 4 mg [facility] tablet TAKE tablet TAKE tablet dic 1 TABLET BY 1 TABLET BY TAKE 1 Sports MOUTH TWICE MOUTH TWICE TABLET BY Medicin A DAY A DAY MOUTH e TWICE A DAY lidocaine-p lidocaine-p No lidocaine- [facility] rilocaine rilocaine prilocaine [facility] 2.5 %-2.5 % 2.5 %-2.5 % 2.5 %-2.5 dic topical topical % topical Spor ts cream APPLY cream APPLY cream Medicin ? GRAM TO ? GRAM TO APPLY ? e THE THE GRAM TO AFFECTED AFFECTED THE AREA(S) 2 AREA(S) 2 AFFECTED TIMES A DAY TIMES A DAY AREA(S) 2 NEEDED NEEDED TIMES A DAY NEEDED methocarbam methocarbam No methocarba [facility] ol 500 mg ol 500 mg mol 500 mg [facility] tablet TAKE tablet TAKE tablet dic 2 TABLETS 2 TABLETS TAKE 2 Spo rts BY MOUTH 4 BY MOUTH 4 TABLETS BY Medicin TIMES A DAY TIMES A DAY MOUTH 4 e FOR 7 DAYS FOR 7 DAYS TIMES A DAY FOR 7 DAYS methocarbam methocarbam No methocarba [facility] ol 750 mg ol 750 mg mol 750 mg [facility] tablet Take tablet Take tablet dic 1 tablet 1 tablet Take 1 Sport s every 6 every 6 tablet Medicin hours by hours by every 6 e oral route oral route hours by as needed. as needed. oral route as needed. metronidazo metronidazo No metronidaz [facility] le 500 mg le 500 mg ole 500 mg [facility] tablet TAKE tablet TAKE tablet dic 1 TABLET BY 1 TABLET BY TAKE 1 Sports MOUTH EVERY MOUTH EVERY TABLET BY Medicin 8 HOURS 8 HOURS MOUTH e EVERY 8 HOURS Novolog Novolog No Novolog [facility] FlexPen FlexPen FlexPen [facility] e U-100 U-100 U-100 dic Insulin Insulin Insulin Sports aspart 100 aspart 100 aspart 100 Medicin unit/mL (3 unit/mL (3 unit/mL (3 e mL) mL) mL) subcutaneou subcutaneou subcutaneo s INJECT 6 s INJECT 6 us INJECT UNITS UNDER UNITS UNDER 6 UNITS THE SKIN 3 THE SKIN 3 UNDER THE TIMES A DAY TIMES A DAY SKIN 3 TIMES A DAY ondansetron ondansetron No ondansetro [facility] HCl 4 mg HCl 4 mg n HCl 4 mg [facility] tablet Take tablet Take tablet dic 1 tablet 1 tablet Take 1 Sport s every 6 every 6 tablet Medicin hours by hours by every 6 e oral route oral route hours by as needed. as needed. oral route as needed. Paxlovid Paxlovid No Paxlovid Aza marya 150 mg-100 150 mg-100 150 mg-100 [facility] mg tablets mg tablets mg tablets dic in a dose in a dose in a dose Sports pack (Renal pack (Renal pack M edicin Dose)(EUA) Dose)(EUA) (Renal e TAKE 2 TAKE 2 Dose)(EUA) TABLETS BY TABLETS BY TAKE 2 MOUTH TWICE MOUTH TWICE TABLETS BY DAILY FOR 5 DAILY FOR 5 MOUTH DAYS. STOP DAYS. STOP TWICE LIPITOR AND LIPITOR AND DAILY FOR TAMSULOSIN TAMSULOSIN 5 DAYS. FOR ONE FOR ONE STOP WEEK WEEK LIPITOR AND TAMSULOSIN FOR ONE WEEK oseltamivir oseltamivir No oseltamivi [facility] 75 mg 75 mg r 75 mg [facility] capsule capsule capsule dic Sports Medicin e Paxlovid Paxlovid No Paxlovid Aza marya 150 mg-100 150 mg-100 150 mg-100 [facility] mg tablets mg tablets mg tablets dic in a dose in a dose in a dose Sports pack (Renal pack (Renal pack M edicin Dose)(EUA) Dose)(EUA) (Renal e TAKE 2 TAKE 2 Dose)(EUA) TABLETS BY TABLETS BY TAKE 2 MOUTH TWICE MOUTH TWICE TABLETS BY DAILY FOR 5 DAILY FOR 5 MOUTH DAYS. STOP DAYS. STOP TWICE LIPITOR AND LIPITOR AND DAILY FOR TAMSULOSIN TAMSULOSIN 5 DAYS. FOR ONE FOR ONE STOP WEEK WEEK LIPITOR AND TAMSULOSIN FOR ONE WEEK prednisone prednisone No prednisone [facility] 5 mg tablet 5 mg tablet 5 mg [facility] tablet dic Sports Medicin e sulfamethox sulfamethox No sulfametho [facility] azole 800 azole 800 xazole 800 [facility] mg-trimetho mg-trimetho mg-trimeth dic prim 160 mg prim 160 mg oprim 160 Sports tablet Take tablet Take mg tablet Medicin 1 tablet 1 tablet Take 1 e twice a day twice a day tablet by oral by oral twice a route as route as day by directed directed oral route for 10 for 10 as days. days. directed for 10 days. tramadol 50 tramadol 50 No tramadol [facility] mg tablet mg tablet 50 mg [facility] TAKE 1 TAKE 1 tablet dic TABLET BY TABLET BY TAKE 1 Spo rts MOUTH EVERY MOUTH EVERY TABLET BY Medicin 4 HOURS 4 HOURS MOUTH e NEEDED FOR NEEDED FOR EVERY 4 PAIN PAIN HOURS NEEDED FOR PAIN True Metrix True Metrix No True A zalea Glucose Glucose Metrix [facility] Meter USE Meter USE Glucose di c DIRECTED DIRECTED Meter USE Sports Medicin DIRECTED e True Metrix True Metrix No True A zalea Glucose Glucose Metrix [facility] Test Strip Test Strip Glucose dic CHECK TWICE CHECK TWICE Test Strip Sports A DAY A DAY CHECK Medicin TWICE A e DAY tamsulosin tamsulosin No tamsulosin [facility] 0.4 mg 0.4 mg 0.4 mg [facility] capsule capsule capsule dic TAKE 1 TAKE 1 TAKE 1 Sports CAPSULE BY CAPSULE BY CAPSULE BY Medicin MOUTH EVERY MOUTH EVERY MOUTH e DAY AT DAY AT EVERY DAY BEDTIME BEDTIME AT BEDTIME tramadol 50 tramadol 50 No tramadol [facility] mg tablet mg tablet 50 mg [facility] TAKE 1 TAKE 1 tablet dic TABLET BY TABLET BY TAKE 1 Spo rts MOUTH EVERY MOUTH EVERY TABLET BY Medicin 4 HOURS 4 HOURS MOUTH e NEEDED FOR NEEDED FOR EVERY 4 PAIN PAIN HOURS NEEDED FOR PAIN True Metrix True Metrix No True A zalea Glucose Glucose Metrix [facility] Meter USE Meter USE Glucose di c DIRECTED DIRECTED Meter USE Sports Medicin DIRECTED e True Metrix True Metrix No True A zalea Glucose Glucose Metrix [facility] Test Strip Test Strip Glucose dic CHECK TWICE CHECK TWICE Test Strip Sports A DAY A DAY CHECK Medicin TWICE A e DAY acetaminoph acetaminoph No acetaminop [facility] en 300 en 300 hen 300 [facility] mg-codeine mg-codeine mg-codeine dic 60 mg 60 mg 60 mg Sports tablet TAKE tablet TAKE tablet Medicin 1 TABLET BY 1 TABLET BY TAKE 1 e MOUTH EVERY MOUTH EVERY TABLET BY 8 (EIGHT) 8 (EIGHT) MOUTH HOURS IF HOURS IF EVERY 8 NEEDED FOR NEEDED FOR (EIGHT) MODERATE MODERATE HOURS IF PAIN FOR UP PAIN FOR UP NEEDED FOR TO 7 DAYS TO 7 DAYS MODERATE PAIN FOR UP TO 7 DAYS amlodipine amlodipine No 10mg amlodipine [facility] 10 mg 10 mg 10 mg [facility] tablet 10 tablet 10 tablet 10 dic mg by oral mg by oral mg by oral Sports route. route. route. Medicin e amlodipine amlodipine No amlodipine [facility] 5 mg tablet 5 mg tablet 5 mg [facility] TAKE 1 TAKE 1 tablet dic TABLET BY TABLET BY TAKE 1 Spo rts MOUTH EVERY MOUTH EVERY TABLET BY Medicin DAY FOR 90 DAY FOR 90 MOUTH e DAYS DAYS EVERY DAY FOR 90 DAYS amoxicillin amoxicillin No amoxicilli [facility] 875 mg 875 mg n 875 mg [facility] tablet TAKE tablet TAKE tablet dic 1 TABLET BY 1 TABLET BY TAKE 1 Sports MOUTH TWICE MOUTH TWICE TABLET BY Medicin A DAY A DAY MOUTH e TWICE A DAY amoxicillin amoxicillin No amoxicilli [facility] 875 875 n 875 [facility] mg-potassiu mg-potassiu mg-potassi dic m m um Sports clavulanate clavulanate clavulanat Medicin 125 mg 125 mg e 125 mg e tablet TAKE tablet TAKE tablet 1 TABLET BY 1 TABLET BY TAKE 1 MOUTH TWICE MOUTH TWICE TABLET BY A DAY FOR A DAY FOR MOUTH 10 DAYS FOR 10 DAYS FOR TWICE A SINUS SINUS DAY FOR 10 INFECTION INFECTION DAYS FOR SINUS INFECTION atorvastati atorvastati No atorvastat [facility] n 40 mg n 40 mg in 40 mg [facility] pe tablet TAKE tablet TAKE tablet dic 1 TABLET BY 1 TABLET BY TAKE 1 Sports MOUTH AT MOUTH AT TABLET BY Ok dicin BED TIME. BED TIME. MOUTH AT e BED TIME. azelastine azelastine No azelastine [facility] 137 mcg 137 mcg 137 mcg [facility] e (0.1 %) (0.1 %) (0.1 %) dic nasal spray nasal spray nasal Sports aerosol USE aerosol USE spray Medicin 1 SPRAY IN 1 SPRAY IN aerosol e EACH EACH USE 1 NOSTRIL NOSTRIL SPRAY IN TWICE A DAY TWICE A DAY EACH DIRECTED DIRECTED NOSTRIL TWICE A DAY DIRECTED azithromyci azithromyci No azithromyc [facility] n 250 mg n 250 mg in 250 mg Or [facility] tablet tablet tablet dic Sports Medicin e Basaglar Basaglar No Basaglar Aza marya KwikPen KwikPen KwikPen [facility] e U-100 U-100 U-100 dic Insulin 100 Insulin 100 Insulin Sports unit/mL (3 unit/mL (3 100 Med icin mL) mL) unit/mL (3 e subcutaneou subcutaneou mL) s INJECT 22 s INJECT 22 subcutaneo UNITS UNDER UNITS UNDER us INJECT THE SKIN 1 THE SKIN 1 22 UNITS (ONE) TIME (ONE) TIME UNDER THE EACH DAY EACH DAY SKIN 1 MAX UPTO 26 MAX UPTO 26 (ONE) TIME UNITS DAILY UNITS DAILY EACH DAY MAX UPTO 26 UNITS DAILY BD BD No BD [facility] Ultra-Fine Ultra-Fine Ultra-Fine [facility] Micro Pen Micro Pen Micro Pen dic Needle 32 Needle 32 Needle 32 Sports gauge x gauge x gauge x Medici n 08/30" USE TO 08/30" USE TO 08/30" USE e INJECT INJECT TO INJECT INSULIN INSULIN INSULIN ONCE EVERY ONCE EVERY ONCE EVERY DAY DAY DAY BD BD No BD [facility] Ultra-Fine Ultra-Fine Ultra-Fine [facility] Mini Pen Mini Pen Mini Pen dic Needle 31 Needle 31 Needle 31 Sports gauge x gauge x gauge x Medici n 11/09" USE 11/09" USE 11/09" USE e TO TEST TO TEST TO TEST TWICE A DAY TWICE A DAY TWICE A DAY benzonatate benzonatate No benzonatat [facility] 100 mg 100 mg e 100 mg [facility] capsule capsule capsule dic TAKE 1 TAKE 1 TAKE 1 Sports CAPSULE BY CAPSULE BY CAPSULE BY Medicin MOUTH THREE MOUTH THREE MOUTH e TIMES A DAY TIMES A DAY THREE NEEDED NEEDED TIMES A FOR COUGH FOR COUGH DAY NEEDED FOR COUGH celecoxib celecoxib No 200mg celecoxib [facility] 200 mg 200 mg 200 mg [facility] capsule 200 capsule 200 capsule dic mg by oral mg by oral 200 mg by Sports route. route. oral Medicin route. e cephalexin cephalexin No cephalexin [facility] 250 mg 250 mg 250 mg [facility] capsule capsule capsule dic TAKE 1 TAKE 1 TAKE 1 Sports CAPSULE CAPSULE CAPSULE Medici n EVERY 6 EVERY 6 EVERY 6 e HOURS BY HOURS BY HOURS BY ORAL ROUTE ORAL ROUTE ORAL ROUTE DIRECTED DIRECTED FOR 10 FOR 10 DIRECTED DAYS. DAYS. FOR 10 DAYS. ciprofloxac ciprofloxac No ciprofloxa [facility] in 500 mg in 500 mg fay 500 mg [facility] tablet TAKE tablet TAKE tablet dic 1 TABLET BY 1 TABLET BY TAKE 1 Sports MOUTH EVERY MOUTH EVERY TABLET BY Medicin 12 HOURS 12 HOURS MOUTH e FOR 7 DAYS FOR 7 DAYS EVERY 12 HOURS FOR 7 DAYS diazepam 5 diazepam 5 No diazepam 5 [facility] mg tablet mg tablet mg tablet [facility] Take 1 Take 1 Take 1 dic tablet tablet tablet Sports every 6 every 6 every 6 Medici n hours by hours by hours by e oral route oral route oral route as needed. as needed. as needed. diclofenac diclofenac No diclofenac [facility] 20 20 20 [facility] mg/gram/act mg/gram/act mg/gram/ac dic uation (2 uation (2 tuation (2 Sports %) topical %) topical %) topical Medicin soln soln soln e metered-dos metered-dos metered-do e pump e pump se pump APPLY 20 APPLY 20 APPLY 20 DROPS TO DROPS TO DROPS TO THE THE THE AFFECTED AFFECTED AFFECTED AREAS 4 AREAS 4 AREAS 4 TIMES DAILY TIMES DAILY TIMES DAILY docusate docusate No docusate Aza marya sodium 100 sodium 100 sodium 100 [facility] mg capsule mg capsule mg capsule dic Take 1 Take 1 Take 1 Sports capsule capsule capsule Medici n twice a day twice a day twice a e by oral by oral day by route as route as oral route directed. directed. as directed. fluocinonid fluocinonid No fluocinoni [facility] e 0.05 % e 0.05 % de 0.05 % [facility] topical gel topical gel topical dic APPLY 1-2 APPLY 1-2 gel APPLY Sports GRAMS TO GRAMS TO 1-2 GRAMS Me dicin THE THE TO THE e AFFECTED AFFECTED AFFECTED AREA 2 AREA 2 AREA 2 TIMES A DAY TIMES A DAY TIMES A DAY fluticasone fluticasone No fluticason [facility] propionate propionate e Ort hope 50 50 propionate dic mcg/actuati mcg/actuati 50 S ports on nasal on nasal mcg/actuat M edicin spray,suspe spray,suspe ion nasal e nsion USE 2 nsion USE 2 spray,susp SPRAYS EACH SPRAYS EACH ension USE SIDE DAILY SIDE DAILY 2 SPRAYS FOR NASAL FOR NASAL EACH SIDE DRAINAGE DRAINAGE DAILY FOR AND AND NASAL ALLERGIES ALLERGIES DRAINAGE AND ALLERGIES glimepiride glimepiride No .5mg glimepirid [facility] 1 mg tablet 1 mg tablet e 1 mg [facility] 0.5 mg by 0.5 mg by tablet 0.5 dic oral route. oral route. mg by oral Sports route. Medicin e hydrocodone hydrocodone No hydrocodon [facility] 10 10 e 10 [facility] mg-acetamin mg-acetamin mg-acetami dic ophen 325 ophen 325 nophen 325 Sports mg tablet mg tablet mg tablet Medicin TAKE 1 TAKE 1 TAKE 1 e TABLET BY TABLET BY TABLET BY MOUTH EVERY MOUTH EVERY MOUTH 4 HOURS 4 HOURS EVERY 4 NEEDED NEEDED HOURS NEEDED Januvia 100 Januvia 100 No Januvia Am[facility] Jo mg tablet mg tablet 100 mg Ort hope TAKE 1 TAKE 1 tablet dic TABLET BY TABLET BY TAKE 1 Spo rts MOUTH EVERY MOUTH EVERY TABLET BY Medicin MORNING MORNING MOUTH e EVERY MORNING Levemir Levemir No Levemir [facility] FlexTouch FlexTouch FlexTouch [facility] U-100 U-100 U-100 dic Insulin 100 Insulin 100 Insulin Sports unit/mL (3 unit/mL (3 100 Med icin mL) mL) unit/mL (3 e subcutaneou subcutaneou mL) s pen s pen subcutaneo INJECT 14 INJECT 14 us pen UNITS UNITS INJECT 14 SUBCUTANEOU SUBCUTANEOU UNITS SLY DAILY SLY DAILY SUBCUTANEO USLY DAILY levocetiriz levocetiriz No 5mg levocetiri [facility] ine 5 mg ine 5 mg zine 5 mg Or [facility] tablet 5 mg tablet 5 mg tablet 5 dic by oral by oral mg by oral Spo rts route. route. route. Medicin e lidocaine-p lidocaine-p No lidocaine- [facility] rilocaine rilocaine prilocaine [facility] 2.5 %-2.5 % 2.5 %-2.5 % 2.5 %-2.5 dic topical topical % topical Spor ts cream APPLY cream APPLY cream Medicin ? GRAM TO ? GRAM TO APPLY ? e THE THE GRAM TO AFFECTED AFFECTED THE AREA(S) 2 AREA(S) 2 AFFECTED TIMES A DAY TIMES A DAY AREA(S) 2 NEEDED NEEDED TIMES A DAY NEEDED lisinopril lisinopril No 20mg lisinopril [facility] 5 mg tablet 5 mg tablet 5 mg [facility] 20 mg by 20 mg by tablet 20 di c oral route. oral route. mg by oral Sports route. Medicin e Medrol Medrol No Medrol [facility] (Shoaib) 4 mg (Shoaib) 4 mg (Shoaib) 4 mg [facility] tablets in tablets in tablets in dic a dose pack a dose pack a dose Sports USE USE pack USE Medicin DIRECTED DIRECTED e DIRECTED methocarbam methocarbam No 1 Q6H methocarba [facility] ol 500 mg ol 500 mg mol 500 mg [facility] tablet Take tablet Take tablet dic 1 tablet 1 tablet Take 1 Sport s every 6 every 6 tablet Medicin hours by hours by every 6 e oral route oral route hours by as needed. as needed. oral route as needed. methocarbam methocarbam No methocarba [facility] ol 750 mg ol 750 mg mol 750 mg [facility] tablet Take tablet Take tablet dic 1 tablet 1 tablet Take 1 Sport s every 6 every 6 tablet Medicin hours by hours by every 6 e oral route oral route hours by as needed. as needed. oral route as needed. metronidazo metronidazo No metronidaz [facility] le 500 mg le 500 mg ole 500 mg [facility] tablet TAKE tablet TAKE tablet dic 1 TABLET BY 1 TABLET BY TAKE 1 Sports MOUTH EVERY MOUTH EVERY TABLET BY Medicin 8 HOURS 8 HOURS MOUTH e EVERY 8 HOURS Novolog Novolog No Novolog [facility] FlexPen FlexPen FlexPen [facility] e U-100 U-100 U-100 dic Insulin Insulin Insulin Sports aspart 100 aspart 100 aspart 100 Medicin unit/mL (3 unit/mL (3 unit/mL (3 e mL) mL) mL) subcutaneou subcutaneou subcutaneo s INJECT 6 s INJECT 6 us INJECT UNITS UNDER UNITS UNDER 6 UNITS THE SKIN 3 THE SKIN 3 UNDER THE TIMES A DAY TIMES A DAY SKIN 3 TIMES A DAY omeprazole omeprazole No 40mg omeprazole [facility] 40 mg 40 mg 40 mg [facility] capsule,del capsule,del capsule,de dic ayed ayed layed Sports release 40 release 40 release 40 Medicin mg by oral mg by oral mg by oral e route. route. route. ondansetron ondansetron No ondansetro [facility] HCl 4 mg HCl 4 mg n HCl 4 mg [facility] tablet Take tablet Take tablet dic 1 tablet 1 tablet Take 1 Sport s every 6 every 6 tablet Medicin hours by hours by every 6 e oral route oral route hours by as needed. as needed. oral route as needed. oseltamivir oseltamivir No oseltamivi [facility] 75 mg 75 mg r 75 mg [facility] capsule capsule capsule dic Sports Medicin e Paxlovid Paxlovid No Paxlovid Aza marya 150 mg-100 150 mg-100 150 mg-100 [facility] mg tablets mg tablets mg tablets dic in a dose in a dose in a dose Sports pack (Renal pack (Renal pack M edicin Dose)(EUA) Dose)(EUA) (Renal e TAKE 2 TAKE 2 Dose)(EUA) TABLETS BY TABLETS BY TAKE 2 MOUTH TWICE MOUTH TWICE TABLETS BY DAILY FOR 5 DAILY FOR 5 MOUTH DAYS. STOP DAYS. STOP TWICE LIPITOR AND LIPITOR AND DAILY FOR TAMSULOSIN TAMSULOSIN 5 DAYS. FOR ONE FOR ONE STOP WEEK WEEK LIPITOR AND TAMSULOSIN FOR ONE WEEK prednisone prednisone No prednisone [facility] 5 mg tablet 5 mg tablet 5 mg [facility] tablet dic Sports Medicin e sulfamethox sulfamethox No sulfametho [facility] azole 800 azole 800 xazole 800 [facility] mg-trimetho mg-trimetho mg-trimeth dic prim 160 mg prim 160 mg oprim 160 Sports tablet Take tablet Take mg tablet Medicin 1 tablet 1 tablet Take 1 e twice a day twice a day tablet by oral by oral twice a route as route as day by directed directed oral route for 10 for 10 as days. days. directed for 10 days. tamsulosin tamsulosin No .4mg tamsulosin [facility] 0.4 mg 0.4 mg 0.4 mg [facility] capsule 0.4 capsule 0.4 capsule dic mg by oral mg by oral 0.4 mg by Sports route. route. oral Medicin route. e tramadol 50 tramadol 50 No tramadol [facility] mg tablet mg tablet 50 mg [facility] TAKE 1 TAKE 1 tablet dic TABLET BY TABLET BY TAKE 1 Spo rts MOUTH EVERY MOUTH EVERY TABLET BY Medicin 4 HOURS 4 HOURS MOUTH e NEEDED FOR NEEDED FOR EVERY 4 PAIN PAIN HOURS NEEDED FOR PAIN True Metrix True Metrix No True A zalea Glucose Glucose Metrix [facility] Meter USE Meter USE Glucose di c DIRECTED DIRECTED Meter USE Sports Medicin DIRECTED e True Metrix True Metrix No True A zalea Glucose Glucose Metrix [facility] Test Strip Test Strip Glucose dic CHECK TWICE CHECK TWICE Test Strip Sports A DAY A DAY CHECK Medicin TWICE A e DAY acetaminoph acetaminoph No acetaminop [facility] en 300 en 300 hen 300 [facility] mg-codeine mg-codeine mg-codeine dic 60 mg 60 mg 60 mg Sports tablet TAKE tablet TAKE tablet Medicin 1 TABLET BY 1 TABLET BY TAKE 1 e MOUTH EVERY MOUTH EVERY TABLET BY 8 (EIGHT) 8 (EIGHT) MOUTH HOURS IF HOURS IF EVERY 8 NEEDED FOR NEEDED FOR (EIGHT) MODERATE MODERATE HOURS IF PAIN FOR UP PAIN FOR UP NEEDED FOR TO 7 DAYS TO 7 DAYS MODERATE PAIN FOR UP TO 7 DAYS amlodipine amlodipine No 10mg amlodipine [facility] 10 mg 10 mg 10 mg [facility] tablet 10 tablet 10 tablet 10 dic mg by oral mg by oral mg by oral Sports route. route. route. Medicin e amlodipine amlodipine No amlodipine [facility] 5 mg tablet 5 mg tablet 5 mg [facility] TAKE 1 TAKE 1 tablet dic TABLET BY TABLET BY TAKE 1 Spo rts MOUTH EVERY MOUTH EVERY TABLET BY Medicin DAY FOR 90 DAY FOR 90 MOUTH e DAYS DAYS EVERY DAY FOR 90 DAYS amoxicillin amoxicillin No amoxicilli [facility] 875 mg 875 mg n 875 mg [facility] tablet TAKE tablet TAKE tablet dic 1 TABLET BY 1 TABLET BY TAKE 1 Sports MOUTH TWICE MOUTH TWICE TABLET BY Medicin A DAY A DAY MOUTH e TWICE A DAY amoxicillin amoxicillin No amoxicilli [facility] 875 875 n 875 [facility] mg-potassiu mg-potassiu mg-potassi dic m m um Sports clavulanate clavulanate clavulanat Medicin 125 mg 125 mg e 125 mg e tablet TAKE tablet TAKE tablet 1 TABLET BY 1 TABLET BY TAKE 1 MOUTH TWICE MOUTH TWICE TABLET BY A DAY FOR A DAY FOR MOUTH 10 DAYS FOR 10 DAYS FOR TWICE A SINUS SINUS DAY FOR 10 INFECTION INFECTION DAYS FOR SINUS INFECTION atorvastati atorvastati No atorvastat [facility] n 40 mg n 40 mg in 40 mg [facility] pe tablet TAKE tablet TAKE tablet dic 1 TABLET BY 1 TABLET BY TAKE 1 Sports MOUTH AT MOUTH AT TABLET BY Me dicin BED TIME. BED TIME. MOUTH AT e BED TIME. azelastine azelastine No azelastine [facility] 137 mcg 137 mcg 137 mcg [facility] e (0.1 %) (0.1 %) (0.1 %) dic nasal spray nasal spray nasal Sports aerosol USE aerosol USE spray Medicin 1 SPRAY IN 1 SPRAY IN aerosol e EACH EACH USE 1 NOSTRIL NOSTRIL SPRAY IN TWICE A DAY TWICE A DAY EACH DIRECTED DIRECTED NOSTRIL TWICE A DAY DIRECTED azithromyci azithromyci No azithromyc [facility] n 250 mg n 250 mg in 250 mg Or [facility]ope tablet tablet tablet dic Sports Medicin e Basaglar Basaglar No Basaglar Aza marya KwikPen KwikPen KwikPen [facility] e U-100 U-100 U-100 dic Insulin 100 Insulin 100 Insulin Sports unit/mL (3 unit/mL (3 100 Med icin mL) mL) unit/mL (3 e subcutaneou subcutaneou mL) s INJECT 22 s INJECT 22 subcutaneo UNITS UNDER UNITS UNDER us INJECT THE SKIN 1 THE SKIN 1 22 UNITS (ONE) TIME (ONE) TIME UNDER THE EACH DAY EACH DAY SKIN 1 MAX UPTO 26 MAX UPTO 26 (ONE) TIME UNITS DAILY UNITS DAILY EACH DAY MAX UPTO 26 UNITS DAILY BD BD No BD [facility] Ultra-Fine Ultra-Fine Ultra-Fine [facility] Micro Pen Micro Pen Micro Pen dic Needle 32 Needle 32 Needle 32 Sports gauge x gauge x gauge x Medici n 08/30" USE TO 08/30" USE TO 08/30" USE e INJECT INJECT TO INJECT INSULIN INSULIN INSULIN ONCE EVERY ONCE EVERY ONCE EVERY DAY DAY DAY BD BD No BD [facility] Ultra-Fine Ultra-Fine Ultra-Fine [facility] Mini Pen Mini Pen Mini Pen dic Needle 31 Needle 31 Needle 31 Sports gauge x gauge x gauge x Medici n 11/09" USE 11/09" USE 11/09" USE e TO TEST TO TEST TO TEST TWICE A DAY TWICE A DAY TWICE A DAY benzonatate benzonatate No benzonatat [facility] 100 mg 100 mg e 100 mg [facility] capsule capsule capsule dic TAKE 1 TAKE 1 TAKE 1 Sports CAPSULE BY CAPSULE BY CAPSULE BY Medicin MOUTH THREE MOUTH THREE MOUTH e TIMES A DAY TIMES A DAY THREE NEEDED NEEDED TIMES A FOR COUGH FOR COUGH DAY NEEDED FOR COUGH celecoxib celecoxib No 200mg celecoxib [facility] 200 mg 200 mg 200 mg [facility] capsule 200 capsule 200 capsule dic mg by oral mg by oral 200 mg by Sports route. route. oral Medicin route. e cephalexin cephalexin No cephalexin [facility] 250 mg 250 mg 250 mg [facility] capsule capsule capsule dic TAKE 1 TAKE 1 TAKE 1 Sports CAPSULE CAPSULE CAPSULE Medici n EVERY 6 EVERY 6 EVERY 6 e HOURS BY HOURS BY HOURS BY ORAL ROUTE ORAL ROUTE ORAL ROUTE DIRECTED DIRECTED FOR 10 FOR 10 DIRECTED DAYS. DAYS. FOR 10 DAYS. ciprofloxac ciprofloxac No ciprofloxa [facility] in 500 mg in 500 mg fay 500 mg [facility] tablet TAKE tablet TAKE tablet dic 1 TABLET BY 1 TABLET BY TAKE 1 Sports MOUTH EVERY MOUTH EVERY TABLET BY Medicin 12 HOURS 12 HOURS MOUTH e FOR 7 DAYS FOR 7 DAYS EVERY 12 HOURS FOR 7 DAYS diazepam 5 diazepam 5 No diazepam 5 [facility] mg tablet mg tablet mg tablet [facility] Take 1 Take 1 Take 1 dic tablet tablet tablet Sports every 6 every 6 every 6 Medici n hours by hours by hours by e oral route oral route oral route as needed. as needed. as needed. diclofenac diclofenac No diclofenac [facility] 20 20 20 [facility] mg/gram/act mg/gram/act mg/gram/ac dic uation (2 uation (2 tuation (2 Sports %) topical %) topical %) topical Medicin soln soln soln e metered-dos metered-dos metered-do e pump e pump se pump APPLY 20 APPLY 20 APPLY 20 DROPS TO DROPS TO DROPS TO THE THE THE AFFECTED AFFECTED AFFECTED AREAS 4 AREAS 4 AREAS 4 TIMES DAILY TIMES DAILY TIMES DAILY docusate docusate No docusate Aza marya sodium 100 sodium 100 sodium 100 [facility] mg capsule mg capsule mg capsule dic Take 1 Take 1 Take 1 Sports capsule capsule capsule Medici n twice a day twice a day twice a e by oral by oral day by route as route as oral route directed. directed. as directed. fluocinonid fluocinonid No fluocinoni [facility] e 0.05 % e 0.05 % de 0.05 % [facility] topical gel topical gel topical dic APPLY 1-2 APPLY 1-2 gel APPLY Sports GRAMS TO GRAMS TO 1-2 GRAMS Me dicin THE THE TO THE e AFFECTED AFFECTED AFFECTED AREA 2 AREA 2 AREA 2 TIMES A DAY TIMES A DAY TIMES A DAY fluticasone fluticasone No fluticason [facility] propionate propionate e [facility] hope 50 50 propionate dic mcg/actuati mcg/actuati 50 S ports on nasal on nasal mcg/actuat M edicin spray,suspe spray,suspe ion nasal e nsion USE 2 nsion USE 2 spray,susp SPRAYS EACH SPRAYS EACH ension USE SIDE DAILY SIDE DAILY 2 SPRAYS FOR NASAL FOR NASAL EACH SIDE DRAINAGE DRAINAGE DAILY FOR AND AND NASAL ALLERGIES ALLERGIES DRAINAGE AND ALLERGIES glimepiride glimepiride No .5mg glimepirid [facility] 1 mg tablet 1 mg tablet e 1 mg [facility] 0.5 mg by 0.5 mg by tablet 0.5 dic oral route. oral route. mg by oral Sports route. Medicin e hydrocodone hydrocodone No hydrocodon [facility] 10 10 e 10 [facility] mg-acetamin mg-acetamin mg-acetami dic ophen 325 ophen 325 nophen 325 Sports mg tablet mg tablet mg tablet Medicin TAKE 1 TAKE 1 TAKE 1 e TABLET BY TABLET BY TABLET BY MOUTH EVERY MOUTH EVERY MOUTH 4 HOURS 4 HOURS EVERY 4 NEEDED NEEDED HOURS NEEDED Januvia 100 Januvia 100 No Januvia [facility] mg tablet mg tablet 100 mg Ort hope TAKE 1 TAKE 1 tablet dic TABLET BY TABLET BY TAKE 1 Spo rts MOUTH EVERY MOUTH EVERY TABLET BY Medicin MORNING MORNING MOUTH e EVERY MORNING Levemir Levemir No Levemir [facility] FlexTouch FlexTouch FlexTouch [facility] U-100 U-100 U-100 dic Insulin 100 Insulin 100 Insulin Sports unit/mL (3 unit/mL (3 100 Med icin mL) mL) unit/mL (3 e subcutaneou subcutaneou mL) s pen s pen subcutaneo INJECT 14 INJECT 14 us pen UNITS UNITS INJECT 14 SUBCUTANEOU SUBCUTANEOU UNITS SLY DAILY SLY DAILY SUBCUTANEO USLY DAILY levocetiriz levocetiriz No 5mg levocetiri [facility] ine 5 mg ine 5 mg zine 5 mg Or [facility]ope tablet 5 mg tablet 5 mg tablet 5 dic by oral by oral mg by oral Spo rts route. route. route. Medicin e lidocaine-p lidocaine-p No lidocaine- [facility] rilocaine rilocaine prilocaine [facility] 2.5 %-2.5 % 2.5 %-2.5 % 2.5 %-2.5 dic topical topical % topical Spor ts cream APPLY cream APPLY cream Medicin ? GRAM TO ? GRAM TO APPLY ? e THE THE GRAM TO AFFECTED AFFECTED THE AREA(S) 2 AREA(S) 2 AFFECTED TIMES A DAY TIMES A DAY AREA(S) 2 NEEDED NEEDED TIMES A DAY NEEDED lisinopril lisinopril No lisinopril [facility] 20 mg 20 mg 20 mg [facility] tablet tablet tablet dic Sports Medicin e lisinopril lisinopril No 20mg lisinopril [facility] 5 mg tablet 5 mg tablet 5 mg [facility] 20 mg by 20 mg by tablet 20 di c oral route. oral route. mg by oral Sports route. Medicin e methocarbam methocarbam No methocarba [facility] ol 500 mg ol 500 mg mol 500 mg [facility] tablet Take tablet Take tablet dic 1 tablet 1 tablet Take 1 Sport s every 6 every 6 tablet Medicin hours by hours by every 6 e oral route oral route hours by as needed. as needed. oral route as needed. methocarbam methocarbam No methocarba [facility] ol 750 mg ol 750 mg mol 750 mg [facility] tablet Take tablet Take tablet dic 1 tablet 1 tablet Take 1 Sport s every 6 every 6 tablet Medicin hours by hours by every 6 e oral route oral route hours by as needed. as needed. oral route as needed. methylpredn methylpredn No methylpred [facility] isolone 4 isolone 4 nisolone 4 [facility] mg tablets mg tablets mg tablets dic in a dose in a dose in a dose Sports pack USE pack USE pack USE Medicin DIRECTED DIRECTED e DIRECTED metronidazo metronidazo No metronidaz [facility] le 500 mg le 500 mg ole 500 mg [facility] tablet TAKE tablet TAKE tablet dic 1 TABLET BY 1 TABLET BY TAKE 1 Sports MOUTH EVERY MOUTH EVERY TABLET BY Medicin 8 HOURS 8 HOURS MOUTH e EVERY 8 HOURS Novolog Novolog No Novolog [facility] FlexPen FlexPen FlexPen [facility] e U-100 U-100 U-100 dic Insulin Insulin Insulin Sports aspart 100 aspart 100 aspart 100 Medicin unit/mL (3 unit/mL (3 unit/mL (3 e mL) mL) mL) subcutaneou subcutaneou subcutaneo s INJECT 6 s INJECT 6 us INJECT UNITS UNDER UNITS UNDER 6 UNITS THE SKIN 3 THE SKIN 3 UNDER THE TIMES A DAY TIMES A DAY SKIN 3 TIMES A DAY omeprazole omeprazole No 40mg omeprazole [facility] 40 mg 40 mg 40 mg [facility] capsule,del capsule,del capsule,de dic ayed ayed layed Sports release 40 release 40 release 40 Medicin mg by oral mg by oral mg by oral e route. route. route. ondansetron ondansetron No ondansetro [facility] HCl 4 mg HCl 4 mg n HCl 4 mg [facility] tablet Take tablet Take tablet dic 1 tablet 1 tablet Take 1 Sport s every 6 every 6 tablet Medicin hours by hours by every 6 e oral route oral route hours by as needed. as needed. oral route as needed. oseltamivir oseltamivir No oseltamivi [facility] 75 mg 75 mg r 75 mg [facility] capsule capsule capsule dic Sports Medicin e Paxlovid Paxlovid No Paxlovid Aza marya 150 mg-100 150 mg-100 150 mg-100 [facility] mg tablets mg tablets mg tablets dic in a dose in a dose in a dose Sports pack (Renal pack (Renal pack M edicin Dose)(EUA) Dose)(EUA) (Renal e TAKE 2 TAKE 2 Dose)(EUA) TABLETS BY TABLETS BY TAKE 2 MOUTH TWICE MOUTH TWICE TABLETS BY DAILY FOR 5 DAILY FOR 5 MOUTH DAYS. STOP DAYS. STOP TWICE LIPITOR AND LIPITOR AND DAILY FOR TAMSULOSIN TAMSULOSIN 5 DAYS. FOR ONE FOR ONE STOP WEEK WEEK LIPITOR AND TAMSULOSIN FOR ONE WEEK prednisone prednisone No prednisone [facility] 5 mg tablet 5 mg tablet 5 mg [facility] tablet dic Sports Medicin e sulfamethox sulfamethox No sulfametho [facility] azole 800 azole 800 xazole 800 [facility] mg-trimetho mg-trimetho mg-trimeth dic prim 160 mg prim 160 mg oprim 160 Sports tablet Take tablet Take mg tablet Medicin 1 tablet 1 tablet Take 1 e twice a day twice a day tablet by oral by oral twice a route as route as day by directed directed oral route for 10 for 10 as days. days. directed for 10 days. tamsulosin tamsulosin No .4mg tamsulosin [facility] 0.4 mg 0.4 mg 0.4 mg [facility] capsule 0.4 capsule 0.4 capsule dic mg by oral mg by oral 0.4 mg by Sports route. route. oral Medicin route. e tramadol 50 tramadol 50 No tramadol [facility] mg tablet mg tablet 50 mg [facility] TAKE 1 TAKE 1 tablet dic TABLET BY TABLET BY TAKE 1 Spo rts MOUTH EVERY MOUTH EVERY TABLET BY Medicin 4 HOURS 4 HOURS MOUTH e NEEDED FOR NEEDED FOR EVERY 4 PAIN PAIN HOURS NEEDED FOR PAIN True Metrix True Metrix No True A zalea Glucose Glucose Metrix [facility] Meter USE Meter USE Glucose di c DIRECTED DIRECTED Meter USE Sports Medicin DIRECTED e True Metrix True Metrix No True A zalea Glucose Glucose Metrix [facility] Test Strip Test Strip Glucose dic CHECK TWICE CHECK TWICE Test Strip Sports A DAY A DAY CHECK Medicin TWICE A e DAY acetaminoph acetaminoph No acetaminop [facility] en 300 en 300 hen 300 [facility] mg-codeine mg-codeine mg-codeine dic 60 mg 60 mg 60 mg Sports tablet TAKE tablet TAKE tablet Medicin 1 TABLET BY 1 TABLET BY TAKE 1 e MOUTH EVERY MOUTH EVERY TABLET BY 8 HOURS 8 HOURS MOUTH EVERY 8 HOURS amoxicillin amoxicillin No amoxicilli [facility] [id number] n 875 [facility] mg-potassiu mg-potassiu mg-potassi dic m m um Sports clavulanate clavulanate clavulanat Medicin 125 mg 125 mg e 125 mg e tablet TAKE tablet TAKE tablet 1 TABLET BY 1 TABLET BY TAKE 1 MOUTH TWICE MOUTH TWICE TABLET BY A DAY FOR 7 A DAY FOR 7 MOUTH DAYS DAYS TWICE A DAY FOR 7 DAYS atorvastati atorvastati No atorvastat [facility] n 40 mg n 40 mg in 40 mg [facility] pe tablet TAKE tablet TAKE tablet dic 1 TABLET BY 1 TABLET BY TAKE 1 Sports MOUTH EVERY MOUTH EVERY TABLET BY Medicin MORNING MORNING MOUTH e EVERY MORNING azelastine azelastine No azelastine [facility] 137 mcg 137 mcg 137 mcg [facility] e (0.1 %) (0.1 %) (0.1 %) dic nasal spray nasal spray nasal Sports aerosol USE aerosol USE spray Medicin 1 SPRAY IN 1 SPRAY IN aerosol e EACH EACH USE 1 NOSTRIL NOSTRIL SPRAY IN TWICE A DAY TWICE A DAY EACH DIRECTED DIRECTED NOSTRIL TWICE A DAY DIRECTED Basaglar Basaglar No Basaglar Aza marya KwikPen KwikPen KwikPen [facility] e U-100 U-100 U-100 dic Insulin 100 Insulin 100 Insulin Sports unit/mL (3 unit/mL (3 100 Med icin mL) mL) unit/mL (3 e subcutaneou subcutaneou mL) s INJECT 18 s INJECT 18 subcutaneo UNITS UNITS us INJECT SUBCUTANEOU SUBCUTANEOU 18 UNITS SLY EVERY SLY EVERY SUBCUTANEO DAY DAY USLY EVERY DAY acetaminoph acetaminoph No acetaminop [facility] en 300 en 300 hen 300 [facility] mg-codeine mg-codeine mg-codeine dic 60 mg 60 mg 60 mg Sports tablet TAKE tablet TAKE tablet Medicin 1 TABLET BY 1 TABLET BY TAKE 1 e MOUTH EVERY MOUTH EVERY TABLET BY 8 (EIGHT) 8 (EIGHT) MOUTH HOURS IF HOURS IF EVERY 8 NEEDED FOR NEEDED FOR (EIGHT) MODERATE MODERATE HOURS IF PAIN FOR UP PAIN FOR UP NEEDED FOR TO 7 DAYS TO 7 DAYS MODERATE PAIN FOR UP TO 7 DAYS acetazolami acetazolami No acetazolam [facility] de 250 mg de 250 mg june 250 mg [facility] tablet tablet tablet dic Sports Medicin e amlodipine amlodipine No 10mg amlodipine [facility] 10 mg 10 mg 10 mg [facility] tablet 10 tablet 10 tablet 10 dic mg by oral mg by oral mg by oral Sports route. route. route. Medicin e amlodipine amlodipine No amlodipine [facility] 5 mg tablet 5 mg tablet 5 mg [facility] TAKE 1 TAKE 1 tablet dic TABLET BY TABLET BY TAKE 1 Spo rts MOUTH EVERY MOUTH EVERY TABLET BY Medicin DAY FOR 90 DAY FOR 90 MOUTH e DAYS DAYS EVERY DAY FOR 90 DAYS amoxicillin amoxicillin No amoxicilli [facility] 875 mg 875 mg n 875 mg [facility] tablet TAKE tablet TAKE tablet dic 1 TABLET BY 1 TABLET BY TAKE 1 Sports MOUTH TWICE MOUTH TWICE TABLET BY Medicin A DAY A DAY MOUTH e TWICE A DAY amoxicillin amoxicillin No amoxicilli [facility] 875 875 n 875 [facility] mg-potassiu mg-potassiu mg-potassi dic m m um Sports clavulanate clavulanate clavulanat Medicin 125 mg 125 mg e 125 mg e tablet TAKE tablet TAKE tablet 1 TABLET BY 1 TABLET BY TAKE 1 MOUTH TWICE MOUTH TWICE TABLET BY A DAY FOR A DAY FOR MOUTH 10 DAYS FOR 10 DAYS FOR TWICE A SINUS SINUS DAY FOR 10 INFECTION INFECTION DAYS FOR SINUS INFECTION atorvastati atorvastati No atorvastat [facility] n 40 mg n 40 mg in 40 mg [facility] pe tablet TAKE tablet TAKE tablet dic 1 TABLET BY 1 TABLET BY TAKE 1 Sports MOUTH AT MOUTH AT TABLET BY Me dicin BED TIME. BED TIME. MOUTH AT e BED TIME. azelastine azelastine No azelastine [facility] 137 mcg 137 mcg 137 mcg [facility] e (0.1 %) (0.1 %) (0.1 %) dic nasal spray nasal spray nasal Sports aerosol USE aerosol USE spray Medicin 1 SPRAY IN 1 SPRAY IN aerosol e EACH EACH USE 1 NOSTRIL NOSTRIL SPRAY IN TWICE A DAY TWICE A DAY EACH DIRECTED DIRECTED NOSTRIL TWICE A DAY DIRECTED BD BD No BD [facility] Ultra-Fine Ultra-Fine Ultra-Fine [facility] Micro Pen Micro Pen Micro Pen dic Needle 32 Needle 32 Needle 32 Sports gauge x gauge x gauge x Medici n 08/30" USE TO 08/30" USE TO 08/30" USE e INJECT INJECT TO INJECT INSULIN INSULIN INSULIN ONCE EVERY ONCE EVERY ONCE EVERY DAY DAY DAY azithromyci azithromyci No azithromyc [facility] n 250 mg n 250 mg in 250 mg Or [facility] tablet tablet tablet dic Sports Medicin e Basaglar Basaglar No Basaglar Aza marya KwikPen KwikPen KwikPen [facility] e U-100 U-100 U-100 dic Insulin 100 Insulin 100 Insulin Sports unit/mL (3 unit/mL (3 100 Med icin mL) mL) unit/mL (3 e subcutaneou subcutaneou mL) s INJECT 22 s INJECT 22 subcutaneo UNITS UNDER UNITS UNDER us INJECT THE SKIN 1 THE SKIN 1 22 UNITS (ONE) TIME (ONE) TIME UNDER THE EACH DAY EACH DAY SKIN 1 MAX UPTO 26 MAX UPTO 26 (ONE) TIME UNITS DAILY UNITS DAILY EACH DAY MAX UPTO 26 UNITS DAILY BD BD No BD [facility] Ultra-Fine Ultra-Fine Ultra-Fine [facility] Micro Pen Micro Pen Micro Pen dic Needle 32 Needle 32 Needle 32 Sports gauge x gauge x gauge x Medici n 08/30" USE TO 08/30" USE TO 08/30" USE e INJECT INJECT TO INJECT INSULIN INSULIN INSULIN ONCE EVERY ONCE EVERY ONCE EVERY DAY DAY DAY BD BD No BD [facility] Ultra-Fine Ultra-Fine Ultra-Fine [facility] Mini Pen Mini Pen Mini Pen dic Needle 31 Needle 31 Needle 31 Sports gauge x gauge x gauge x Medici n 11/09" USE 11/09" USE 11/09" USE e TO TEST TO TEST TO TEST TWICE A DAY TWICE A DAY TWICE A DAY benzonatate benzonatate No benzonatat [facility] 100 mg 100 mg e 100 mg [facility] capsule capsule capsule dic TAKE 1 TAKE 1 TAKE 1 Sports CAPSULE BY CAPSULE BY CAPSULE BY Medicin MOUTH THREE MOUTH THREE MOUTH e TIMES A DAY TIMES A DAY THREE NEEDED NEEDED TIMES A FOR COUGH FOR COUGH DAY NEEDED FOR COUGH celecoxib celecoxib No 200mg celecoxib [facility] 200 mg 200 mg 200 mg [facility] capsule 200 capsule 200 capsule dic mg by oral mg by oral 200 mg by Sports route. route. oral Medicin route. e cephalexin cephalexin No cephalexin [facility] 250 mg 250 mg 250 mg [facility] capsule capsule capsule dic TAKE 1 TAKE 1 TAKE 1 Sports CAPSULE CAPSULE CAPSULE Medici n EVERY 6 EVERY 6 EVERY 6 e HOURS BY HOURS BY HOURS BY ORAL ROUTE ORAL ROUTE ORAL ROUTE DIRECTED DIRECTED FOR 10 FOR 10 DIRECTED DAYS. DAYS. FOR 10 DAYS. ciprofloxac ciprofloxac No ciprofloxa [facility] in 500 mg in 500 mg fay 500 mg [facility] tablet TAKE tablet TAKE tablet dic 1 TABLET BY 1 TABLET BY TAKE 1 Sports MOUTH EVERY MOUTH EVERY TABLET BY Medicin 12 HOURS 12 HOURS MOUTH e FOR 7 DAYS FOR 7 DAYS EVERY 12 HOURS FOR 7 DAYS clopidogrel clopidogrel No clopidogre [facility] 75 mg 75 mg l 75 mg [facility] tablet TAKE tablet TAKE tablet dic 1 TABLET BY 1 TABLET BY TAKE 1 Sports MOUTH EVERY MOUTH EVERY TABLET BY Medicin DAY FOR 90 DAY FOR 90 MOUTH e DAYS DAYS EVERY DAY FOR 90 DAYS diazepam 5 diazepam 5 No diazepam 5 [facility] mg tablet mg tablet mg tablet [facility] Take 1 Take 1 Take 1 dic tablet tablet tablet Sports every 6 every 6 every 6 Medici n hours by hours by hours by e oral route oral route oral route as needed. as needed. as needed. BD BD No BD [facility] Ultra-Fine Ultra-Fine Ultra-Fine [facility] Mini Pen Mini Pen Mini Pen dic Needle 31 Needle 31 Needle 31 Sports gauge x gauge x gauge x Medici n 3" USE 11/09" USE 11/09" USE e TO TEST TO TEST TO TEST TWICE A DAY TWICE A DAY TWICE A DAY diclofenac diclofenac No diclofenac [facility] 20 20 20 [facility] mg/gram/act mg/gram/act mg/gram/ac dic uation (2 uation (2 tuation (2 Sports %) topical %) topical %) topical Medicin soln soln soln e metered-dos metered-dos metered-do e pump e pump se pump APPLY 20 APPLY 20 APPLY 20 DROPS TO DROPS TO DROPS TO THE THE THE AFFECTED AFFECTED AFFECTED AREAS 4 AREAS 4 AREAS 4 TIMES DAILY TIMES DAILY TIMES DAILY docusate docusate No docusate Aza marya sodium 100 sodium 100 sodium 100 [facility] mg capsule mg capsule mg capsule dic Take 1 Take 1 Take 1 Sports capsule capsule capsule Medici n twice a day twice a day twice a e by oral by oral day by route as route as oral route directed. directed. as directed. donepezil 5 donepezil 5 No donepezil [facility] mg tablet mg tablet 5 mg [facility] pe tablet dic Sports Medicin e fluocinonid fluocinonid No fluocinoni [facility] e 0.05 % e 0.05 % de 0.05 % Or [facility] topical gel topical gel topical dic APPLY 1-2 APPLY 1-2 gel APPLY Sports GRAMS TO GRAMS TO 1-2 GRAMS Me dicin THE THE TO THE e AFFECTED AFFECTED AFFECTED AREA 2 AREA 2 AREA 2 TIMES A DAY TIMES A DAY TIMES A DAY fluticasone fluticasone No fluticason [facility] propionate propionate e Ort hope 50 50 propionate dic mcg/actuati mcg/actuati 50 S ports on nasal on nasal mcg/actuat M edicin spray,suspe spray,suspe ion nasal e nsion USE 2 nsion USE 2 spray,susp SPRAYS EACH SPRAYS EACH ension USE SIDE DAILY SIDE DAILY 2 SPRAYS FOR NASAL FOR NASAL EACH SIDE DRAINAGE DRAINAGE DAILY FOR AND AND NASAL ALLERGIES ALLERGIES DRAINAGE AND ALLERGIES glimepiride glimepiride No .5mg glimepirid [facility] 1 mg tablet 1 mg tablet e 1 mg [facility] 0.5 mg by 0.5 mg by tablet 0.5 dic oral route. oral route. mg by oral Sports route. Medicin e hydrocodone hydrocodone No hydrocodon [facility] 10 10 e 10 [facility] mg-acetamin mg-acetamin mg-acetami dic ophen 325 ophen 325 nophen 325 Sports mg tablet mg tablet mg tablet Medicin TAKE 1 TAKE 1 TAKE 1 e TABLET BY TABLET BY TABLET BY MOUTH EVERY MOUTH EVERY MOUTH 4 HOURS 4 HOURS EVERY 4 NEEDED NEEDED HOURS NEEDED isosorbide isosorbide No isosorbide [facility] mononitrate mononitrate mononitrat [facility] ER 30 mg ER 30 mg e ER 30 mg d ic tablet,exte tablet,exte tablet,ext Sports nded nded ended Medicin release 24 release 24 release 24 e hr TAKE 1 hr TAKE 1 hr TAKE 1 TABLET BY TABLET BY TABLET BY MOUTH EVERY MOUTH EVERY MOUTH DAY IN THE DAY IN THE EVERY DAY MORNING FOR MORNING FOR IN THE 90 DAYS 90 DAYS MORNING FOR 90 DAYS benzonatate benzonatate No benzonatat [facility] 100 mg 100 mg e 100 mg [facility] capsule capsule capsule dic TAKE 1 TAKE 1 TAKE 1 Sports CAPSULE BY CAPSULE BY CAPSULE BY Medicin MOUTH THREE MOUTH THREE MOUTH e TIMES A DAY TIMES A DAY THREE NEEDED NEEDED TIMES A FOR COUGH FOR COUGH DAY NEEDED FOR COUGH Januvia 100 Januvia 100 No Januvia [facility] mg tablet mg tablet 100 mg Ort hope TAKE 1 TAKE 1 tablet dic TABLET BY TABLET BY TAKE 1 Spo rts MOUTH EVERY MOUTH EVERY TABLET BY Medicin MORNING MORNING MOUTH e EVERY MORNING Levemir Levemir No Levemir [facility] FlexTouch FlexTouch FlexTouch [facility] U-100 U-100 U-100 dic Insulin 100 Insulin 100 Insulin Sports unit/mL (3 unit/mL (3 100 Med icin mL) mL) unit/mL (3 e subcutaneou subcutaneou mL) s pen s pen subcutaneo INJECT 14 INJECT 14 us pen UNITS UNITS INJECT 14 SUBCUTANEOU SUBCUTANEOU UNITS SLY DAILY SLY DAILY SUBCUTANEO USLY DAILY levocetiriz levocetiriz No 5mg levocetiri [facility] ine 5 mg ine 5 mg zine 5 mg Or [facility]ope tablet 5 mg tablet 5 mg tablet 5 dic by oral by oral mg by oral Spo rts route. route. route. Medicin e lidocaine-p lidocaine-p No lidocaine- [facility] rilocaine rilocaine prilocaine [facility] 2.5 %-2.5 % 2.5 %-2.5 % 2.5 %-2.5 dic topical topical % topical Spor ts cream APPLY cream APPLY cream Medicin ? GRAM TO ? GRAM TO APPLY ? e THE THE GRAM TO AFFECTED AFFECTED THE AREA(S) 2 AREA(S) 2 AFFECTED TIMES A DAY TIMES A DAY AREA(S) 2 NEEDED NEEDED TIMES A DAY NEEDED lisinopril lisinopril No lisinopril [facility] 20 mg 20 mg 20 mg [facility] tablet tablet tablet dic Sports Medicin e lisinopril lisinopril No 20mg lisinopril [facility] 5 mg tablet 5 mg tablet 5 mg [facility] 20 mg by 20 mg by tablet 20 d ic oral route. oral route. mg by oral Sports route. Medicin e methocarbam methocarbam No methocarba [facility] ol 500 mg ol 500 mg mol 500 mg [facility] tablet Take tablet Take tablet dic 1 tablet 1 tablet Take 1 Sport s every 6 every 6 tablet Medicin hours by hours by every 6 e oral route oral route hours by as needed. as needed. oral route as needed. methocarbam methocarbam No methocarba [facility] ol 750 mg ol 750 mg mol 750 mg [facility] tablet Take tablet Take tablet dic 1 tablet 1 tablet Take 1 Sport s every 6 every 6 tablet Medicin hours by hours by every 6 e oral route oral route hours by as needed. as needed. oral route as needed. methylpredn methylpredn No methylpred [facility] isolone 4 isolone 4 nisolone 4 [facility] mg tablets mg tablets mg tablets dic in a dose in a dose in a dose Sports pack USE pack USE pack USE Medicin DIRECTED DIRECTED e DIRECTED celecoxib celecoxib No celecoxib [facility] 200 mg 200 mg 200 mg [facility] capsule capsule capsule dic TAKE 1 TAKE 1 TAKE 1 Sports CAPSULE BY CAPSULE BY CAPSULE BY Medicin MOUTH EVERY MOUTH EVERY MOUTH e DAY IN THE DAY IN THE EVERY DAY MORNING MORNING IN THE MORNING metoprolol metoprolol No metoprolol [facility] tartrate 25 tartrate 25 tartrate [facility] mg tablet mg tablet 25 mg dic tablet Sports Medicin e metronidazo metronidazo No metronidaz [facility] le 500 mg le 500 mg ole 500 mg [facility] tablet TAKE tablet TAKE tablet dic 1 TABLET BY 1 TABLET BY TAKE 1 Sports MOUTH EVERY MOUTH EVERY TABLET BY Medicin 8 HOURS 8 HOURS MOUTH e EVERY 8 HOURS Novolog Novolog No Novolog [facility] FlexPen FlexPen FlexPen [facility] e U-100 U-100 U-100 dic Insulin Insulin Insulin Sports aspart 100 aspart 100 aspart 100 Medicin unit/mL (3 unit/mL (3 unit/mL (3 e mL) mL) mL) subcutaneou subcutaneou subcutaneo s INJECT 6 s INJECT 6 us INJECT UNITS UNDER UNITS UNDER 6 UNITS THE SKIN 3 THE SKIN 3 UNDER THE TIMES A DAY TIMES A DAY SKIN 3 TIMES A DAY omeprazole omeprazole No 40mg omeprazole [facility] 40 mg 40 mg 40 mg [facility] capsule,del capsule,del capsule,de dic ayed ayed layed Sports release 40 release 40 release 40 Medicin mg by oral mg by oral mg by oral e route. route. route. ondansetron ondansetron No ondansetro [facility] HCl 4 mg HCl 4 mg n HCl 4 mg [facility] tablet Take tablet Take tablet dic 1 tablet 1 tablet Take 1 Sport s every 6 every 6 tablet Medicin hours by hours by every 6 e oral route oral route hours by as needed. as needed. oral route as needed. oseltamivir oseltamivir No oseltamivi [facility] 75 mg 75 mg r 75 mg [facility] capsule capsule capsule dic Sports Medicin e Paxlovid Paxlovid No Paxlovid Aza marya 150 mg-100 150 mg-100 150 mg-100 [facility] mg tablets mg tablets mg tablets dic in a dose in a dose in a dose Sports pack (Renal pack (Renal pack M edicin Dose)(EUA) Dose)(EUA) (Renal e TAKE 2 TAKE 2 Dose)(EUA) TABLETS BY TABLETS BY TAKE 2 MOUTH TWICE MOUTH TWICE TABLETS BY DAILY FOR 5 DAILY FOR 5 MOUTH DAYS. STOP DAYS. STOP TWICE LIPITOR AND LIPITOR AND DAILY FOR TAMSULOSIN TAMSULOSIN 5 DAYS. FOR ONE FOR ONE STOP WEEK WEEK LIPITOR AND TAMSULOSIN FOR ONE WEEK prednisone prednisone No prednisone [facility] 5 mg tablet 5 mg tablet 5 mg [facility] tablet dic Sports Medicin e sulfamethox sulfamethox No sulfametho [facility] azole 800 azole 800 xazole 800 [facility] mg-trimetho mg-trimetho mg-trimeth dic prim 160 mg prim 160 mg oprim 160 Sports tablet Take tablet Take mg tablet Medicin 1 tablet 1 tablet Take 1 e twice a day twice a day tablet by oral by oral twice a route as route as day by directed directed oral route for 10 for 10 as days. days. directed for 10 days. ciprofloxac ciprofloxac No ciprofloxa [facility] in 500 mg in 500 mg fay 500 mg [facility] tablet TAKE tablet TAKE tablet dic 1 TABLET BY 1 TABLET BY TAKE 1 Sports MOUTH TWICE MOUTH TWICE TABLET BY Medicin A DAY A DAY MOUTH e TWICE A DAY tamsulosin tamsulosin No tamsulosin [facility] 0.4 mg 0.4 mg 0.4 mg [facility] capsule capsule capsule dic TAKE 1 TAKE 1 TAKE 1 Sports CAPSULE BY CAPSULE BY CAPSULE BY Medicin MOUTH MOUTH MOUTH e EVERYDAY AT EVERYDAY AT EVERYDAY BEDTIME BEDTIME AT BEDTIME tramadol 50 tramadol 50 No tramadol [facility] mg tablet mg tablet 50 mg [facility] TAKE 1 TAKE 1 tablet dic TABLET BY TABLET BY TAKE 1 Spo rts MOUTH EVERY MOUTH EVERY TABLET BY Medicin 4 HOURS 4 HOURS MOUTH e NEEDED FOR NEEDED FOR EVERY 4 PAIN PAIN HOURS NEEDED FOR PAIN True Metrix True Metrix No True A zalea Glucose Glucose Metrix [facility] Meter USE Meter USE Glucose di c DIRECTED DIRECTED Meter USE Sports Medicin DIRECTED e True Metrix True Metrix No True A zalea Glucose Glucose Metrix [facility] Test Strip Test Strip Glucose dic CHECK TWICE CHECK TWICE Test Strip Sports A DAY A DAY CHECK Medicin TWICE A e DAY clopidogrel clopidogrel No clopidogre [facility] 75 mg 75 mg l 75 mg [facility] tablet TAKE tablet TAKE tablet dic 1 TABLET BY 1 TABLET BY TAKE 1 Sports MOUTH EVERY MOUTH EVERY TABLET BY Medicin DAY FOR 90 DAY FOR 90 MOUTH e DAYS DAYS EVERY DAY FOR 90 DAYS acetaminoph acetaminoph No acetaminop [facility] en 300 en 300 hen 300 [facility] mg-codeine mg-codeine mg-codeine dic 60 mg 60 mg 60 mg Sports tablet TAKE tablet TAKE tablet Medicin 1 TABLET BY 1 TABLET BY TAKE 1 e MOUTH EVERY MOUTH EVERY TABLET BY 8 (EIGHT) 8 (EIGHT) MOUTH HOURS IF HOURS IF EVERY 8 NEEDED FOR NEEDED FOR (EIGHT) MODERATE MODERATE HOURS IF PAIN FOR UP PAIN FOR UP NEEDED FOR TO 7 DAYS TO 7 DAYS MODERATE PAIN FOR UP TO 7 DAYS acetazolami acetazolami No acetazolam [facility] de 250 mg de 250 mg june 250 mg [facility] tablet tablet tablet dic Sports Medicin e amlodipine amlodipine No 10mg amlodipine [facility] 10 mg 10 mg 10 mg [facility] tablet 10 tablet 10 tablet 10 dic mg by oral mg by oral mg by oral Sports route. route. route. Medicin e fluticasone fluticasone No fluticason [facility] propionate propionate e Ort hope 50 50 propionate dic mcg/actuati mcg/actuati 50 S ports on nasal on nasal mcg/actuat M edicin spray,suspe spray,suspe ion nasal e nsion USE 1 nsion USE 1 spray,susp SPRAY IN SPRAY IN ension USE EACH EACH 1 SPRAY IN NOSTRIL NOSTRIL EACH EVERY DAY EVERY DAY NOSTRIL EVERY DAY amlodipine amlodipine No amlodipine [facility] 5 mg tablet 5 mg tablet 5 mg [facility] TAKE 1 TAKE 1 tablet dic TABLET BY TABLET BY TAKE 1 Spo rts MOUTH EVERY MOUTH EVERY TABLET BY Medicin DAY FOR 90 DAY FOR 90 MOUTH e DAYS DAYS EVERY DAY FOR 90 DAYS amoxicillin amoxicillin No amoxicilli [facility] 875 mg 875 mg n 875 mg [facility] tablet TAKE tablet TAKE tablet dic 1 TABLET BY 1 TABLET BY TAKE 1 Sports MOUTH TWICE MOUTH TWICE TABLET BY Medicin A DAY A DAY MOUTH e TWICE A DAY amoxicillin amoxicillin No amoxicilli [facility] 875 875 n 875 [facility] mg-potassiu mg-potassiu mg-potassi dic m m um Sports clavulanate clavulanate clavulanat Medicin 125 mg 125 mg e 125 mg e tablet TAKE tablet TAKE tablet 1 TABLET BY 1 TABLET BY TAKE 1 MOUTH TWICE MOUTH TWICE TABLET BY A DAY FOR A DAY FOR MOUTH 10 DAYS FOR 10 DAYS FOR TWICE A SINUS SINUS DAY FOR 10 INFECTION INFECTION DAYS FOR SINUS INFECTION atorvastati atorvastati No atorvastat [facility] n 40 mg n 40 mg in 40 mg [facility] pe tablet TAKE tablet TAKE tablet dic 1 TABLET BY 1 TABLET BY TAKE 1 Sports MOUTH AT MOUTH AT TABLET BY Me dicin BED TIME. BED TIME. MOUTH AT e BED TIME. azelastine azelastine No azelastine [facility] 137 mcg 137 mcg 137 mcg [facility] e (0.1 %) (0.1 %) (0.1 %) dic nasal spray nasal spray nasal Sports aerosol USE aerosol USE spray Medicin 1 SPRAY IN 1 SPRAY IN aerosol e EACH EACH USE 1 NOSTRIL NOSTRIL SPRAY IN TWICE A DAY TWICE A DAY EACH DIRECTED DIRECTED NOSTRIL TWICE A DAY DIRECTED azithromyci azithromyci No azithromyc [facility] n 250 mg n 250 mg in 250 mg Or [facility]ope tablet tablet tablet dic Sports Medicin e Basaglar Basaglar No Basaglar Aza marya KwikPen KwikPen KwikPen [facility] e U-100 U-100 U-100 dic Insulin 100 Insulin 100 Insulin Sports unit/mL (3 unit/mL (3 100 Med icin mL) mL) unit/mL (3 e subcutaneou subcutaneou mL) s INJECT 22 s INJECT 22 subcutaneo UNITS UNDER UNITS UNDER us INJECT THE SKIN 1 THE SKIN 1 22 UNITS (ONE) TIME (ONE) TIME UNDER THE EACH DAY EACH DAY SKIN 1 MAX UPTO 26 MAX UPTO 26 (ONE) TIME UNITS DAILY UNITS DAILY EACH DAY MAX UPTO 26 UNITS DAILY BD BD No BD [facility] Ultra-Fine Ultra-Fine Ultra-Fine [facility] Micro Pen Micro Pen Micro Pen dic Needle 32 Needle 32 Needle 32 Sports gauge x gauge x gauge x Medici n 08/30" USE TO 08/30" USE TO 08/30" USE e INJECT INJECT TO INJECT INSULIN INSULIN INSULIN ONCE EVERY ONCE EVERY ONCE EVERY DAY DAY DAY BD BD No BD [facility] Ultra-Fine Ultra-Fine Ultra-Fine [facility] Mini Pen Mini Pen Mini Pen dic Needle 31 Needle 31 Needle 31 Sports gauge x gauge x gauge x Medici n 11/09" USE 11/09" USE 11/09" USE e TO TEST TO TEST TO TEST TWICE A DAY TWICE A DAY TWICE A DAY glimepiride glimepiride No glimepirid [facility] 4 mg tablet 4 mg tablet e 4 mg [facility] TAKE 1 TAKE 1 tablet dic TABLET BY TABLET BY TAKE 1 Spo rts MOUTH TWICE MOUTH TWICE TABLET BY Medicin A DAY A DAY MOUTH e TWICE A DAY benzonatate benzonatate No benzonatat [facility] 100 mg 100 mg e 100 mg [facility] capsule capsule capsule dic TAKE 1 TAKE 1 TAKE 1 Sports CAPSULE BY CAPSULE BY CAPSULE BY Medicin MOUTH THREE MOUTH THREE MOUTH e TIMES A DAY TIMES A DAY THREE NEEDED NEEDED TIMES A FOR COUGH FOR COUGH DAY NEEDED FOR COUGH celecoxib celecoxib No 200mg celecoxib [facility] 200 mg 200 mg 200 mg [facility] capsule 200 capsule 200 capsule dic mg by oral mg by oral 200 mg by Sports route. route. oral Medicin route. e cephalexin cephalexin No cephalexin [facility] 250 mg 250 mg 250 mg [facility] capsule capsule capsule dic TAKE 1 TAKE 1 TAKE 1 Sports CAPSULE CAPSULE CAPSULE Medici n EVERY 6 EVERY 6 EVERY 6 e HOURS BY HOURS BY HOURS BY ORAL ROUTE ORAL ROUTE ORAL ROUTE DIRECTED DIRECTED FOR 10 FOR 10 DIRECTED DAYS. DAYS. FOR 10 DAYS. ciprofloxac ciprofloxac No ciprofloxa [facility] in 500 mg in 500 mg fay 500 mg [facility] tablet TAKE tablet TAKE tablet dic 1 TABLET BY 1 TABLET BY TAKE 1 Sports MOUTH EVERY MOUTH EVERY TABLET BY Medicin 12 HOURS 12 HOURS MOUTH e FOR 7 DAYS FOR 7 DAYS EVERY 12 HOURS FOR 7 DAYS clopidogrel clopidogrel No clopidogre [facility] 75 mg 75 mg l 75 mg [facility] tablet TAKE tablet TAKE tablet dic 1 TABLET BY 1 TABLET BY TAKE 1 Sports MOUTH EVERY MOUTH EVERY TABLET BY Medicin DAY FOR 90 DAY FOR 90 MOUTH e DAYS DAYS EVERY DAY FOR 90 DAYS diazepam 5 diazepam 5 No diazepam 5 [facility] mg tablet mg tablet mg tablet [facility] Take 1 Take 1 Take 1 dic tablet tablet tablet Sports every 6 every 6 every 6 Medici n hours by hours by hours by e oral route oral route oral route as needed. as needed. as needed. diclofenac diclofenac No diclofenac [facility] 20 20 20 [facility] mg/gram/act mg/gram/act mg/gram/ac dic uation (2 uation (2 tuation (2 Sports %) topical %) topical %) topical Medicin soln soln soln e metered-dos metered-dos metered-do e pump e pump se pump APPLY 20 APPLY 20 APPLY 20 DROPS TO DROPS TO DROPS TO THE THE THE AFFECTED AFFECTED AFFECTED AREAS 4 AREAS 4 AREAS 4 TIMES DAILY TIMES DAILY TIMES DAILY docusate docusate No docusate Aza marya sodium 100 sodium 100 sodium 100 [facility] mg capsule mg capsule mg capsule dic Take 1 Take 1 Take 1 Sports capsule capsule capsule Medici n twice a day twice a day twice a e by oral by oral day by route as route as oral route directed. directed. as directed. donepezil 5 donepezil 5 No donepezil [facility] mg tablet mg tablet 5 mg [facility] pe tablet dic Sports Medicin e insulin insulin No insulin [facility] aspart aspart aspart [facility] (U-100) 100 (U-100) 100 (U-100) dic unit/mL (3 unit/mL (3 100 Spo rts mL) mL) unit/mL (3 Medicin subcutaneou subcutaneou mL) e s pen s pen subcutaneo INJECT 4 INJECT 4 us pen UNITS UNITS INJECT 4 SUBCUTANEOU SUBCUTANEOU UNITS SLY BEFORE SLY BEFORE SUBCUTANEO MEALS THREE MEALS THREE USLY TIMES DAILY TIMES DAILY BEFORE MEALS THREE TIMES DAILY fluocinonid fluocinonid No fluocinoni [facility] e 0.05 % e 0.05 % de 0.05 % [facility] topical gel topical gel topical dic APPLY 1-2 APPLY 1-2 gel APPLY Sports GRAMS TO GRAMS TO 1-2 GRAMS Me dicin THE THE TO THE e AFFECTED AFFECTED AFFECTED AREA 2 AREA 2 AREA 2 TIMES A DAY TIMES A DAY TIMES A DAY fluticasone fluticasone No fluticason [facility] propionate propionate e [facility] hope 50 50 propionate dic mcg/actuati mcg/actuati 50 S ports on nasal on nasal mcg/actuat M edicin spray,suspe spray,suspe ion nasal e nsion USE 2 nsion USE 2 spray,susp SPRAYS EACH SPRAYS EACH ension USE SIDE DAILY SIDE DAILY 2 SPRAYS FOR NASAL FOR NASAL EACH SIDE DRAINAGE DRAINAGE DAILY FOR AND AND NASAL ALLERGIES ALLERGIES DRAINAGE AND ALLERGIES glimepiride glimepiride No .5mg glimepirid [facility] 1 mg tablet 1 mg tablet e 1 mg [facility] 0.5 mg by 0.5 mg by tablet 0.5 dic oral route. oral route. mg by oral Sports route. Medicin e hydrocodone hydrocodone No hydrocodon [facility] 10 10 e 10 [facility] mg-acetamin mg-acetamin mg-acetami dic ophen 325 ophen 325 nophen 325 Sports mg tablet mg tablet mg tablet Medicin TAKE 1 TAKE 1 TAKE 1 e TABLET BY TABLET BY TABLET BY MOUTH EVERY MOUTH EVERY MOUTH 4 HOURS 4 HOURS EVERY 4 NEEDED NEEDED HOURS NEEDED isosorbide isosorbide No isosorbide [facility] mononitrate mononitrate mononitrat [facility] ER 30 mg ER 30 mg e ER 30 mg d ic tablet,exte tablet,exte tablet,ext Sports nded nded ended Medicin release 24 release 24 release 24 e hr TAKE 1 hr TAKE 1 hr TAKE 1 TABLET BY TABLET BY TABLET BY MOUTH EVERY MOUTH EVERY MOUTH DAY IN THE DAY IN THE EVERY DAY MORNING FOR MORNING FOR IN THE 90 DAYS 90 DAYS MORNING FOR 90 DAYS Januvia 100 Januvia 100 No Januvia [facility] mg tablet mg tablet 100 mg [facility] hope TAKE 1 TAKE 1 tablet dic TABLET BY TABLET BY TAKE 1 Spo rts MOUTH EVERY MOUTH EVERY TABLET BY Medicin MORNING MORNING MOUTH e EVERY MORNING Levemir Levemir No Levemir [facility] FlexTouch FlexTouch FlexTouch [facility] U-100 U-100 U-100 dic Insulin 100 Insulin 100 Insulin Sports unit/mL (3 unit/mL (3 100 Med icin mL) mL) unit/mL (3 e subcutaneou subcutaneou mL) s pen s pen subcutaneo INJECT 14 INJECT 14 us pen UNITS UNITS INJECT 14 SUBCUTANEOU SUBCUTANEOU UNITS SLY DAILY SLY DAILY SUBCUTANEO USLY DAILY levocetiriz levocetiriz No 5mg levocetiri [facility] ine 5 mg ine 5 mg zine 5 mg Or [facility]ope tablet 5 mg tablet 5 mg tablet 5 dic by oral by oral mg by oral Spo rts route. route. route. Medicin e isosorbide isosorbide No isosorbide [facility] mononitrate mononitrate mononitrat [facility] ER 30 mg ER 30 mg e ER 30 mg d ic tablet,exte tablet,exte tablet,ext Sports nded nded ended Medicin release 24 release 24 release 24 e hr TAKE 1 hr TAKE 1 hr TAKE 1 TABLET BY TABLET BY TABLET BY MOUTH EVERY MOUTH EVERY MOUTH DAY IN THE DAY IN THE EVERY DAY MORNING MORNING IN THE MORNING lidocaine-p lidocaine-p No lidocaine- [facility] rilocaine rilocaine prilocaine [facility] 2.5 %-2.5 % 2.5 %-2.5 % 2.5 %-2.5 dic topical topical % topical Spor ts cream APPLY cream APPLY cream Medicin ? GRAM TO ? GRAM TO APPLY ? e THE THE GRAM TO AFFECTED AFFECTED THE AREA(S) 2 AREA(S) 2 AFFECTED TIMES A DAY TIMES A DAY AREA(S) 2 NEEDED NEEDED TIMES A DAY NEEDED lisinopril lisinopril No lisinopril [facility] 20 mg 20 mg 20 mg [facility] tablet tablet tablet dic Sports Medicin e lisinopril lisinopril No 20mg lisinopril [facility] 5 mg tablet 5 mg tablet 5 mg [facility] 20 mg by 20 mg by tablet 20 di c oral route. oral route. mg by oral Sports route. Medicin e methocarbam methocarbam No methocarba [facility] ol 500 mg ol 500 mg mol 500 mg [facility] tablet Take tablet Take tablet dic 1 tablet 1 tablet Take 1 Sport s every 6 every 6 tablet Medicin hours by hours by every 6 e oral route oral route hours by as needed. as needed. oral route as needed. methocarbam methocarbam No methocarba [facility] ol 750 mg ol 750 mg mol 750 mg [facility] tablet Take tablet Take tablet dic 1 tablet 1 tablet Take 1 Sport s every 6 every 6 tablet Medicin hours by hours by every 6 e oral route oral route hours by as needed. as needed. oral route as needed. methylpredn methylpredn No methylpred [facility] isolone 4 isolone 4 nisolone 4 [facility] mg tablets mg tablets mg tablets dic in a dose in a dose in a dose Sports pack USE pack USE pack USE Medicin DIRECTED DIRECTED e DIRECTED metoprolol metoprolol No metoprolol [facility] tartrate 25 tartrate 25 tartrate [facility] mg tablet mg tablet 25 mg dic tablet Sports Medicin e metronidazo metronidazo No metronidaz [facility] le 500 mg le 500 mg ole 500 mg [facility] tablet TAKE tablet TAKE tablet dic 1 TABLET BY 1 TABLET BY TAKE 1 Sports MOUTH EVERY MOUTH EVERY TABLET BY Medicin 8 HOURS 8 HOURS MOUTH e EVERY 8 HOURS Novolog Novolog No Novolog [facility] FlexPen FlexPen FlexPen [facility] e U-100 U-100 U-100 dic Insulin Insulin Insulin Sports aspart 100 aspart 100 aspart 100 Medicin unit/mL (3 unit/mL (3 unit/mL (3 e mL) mL) mL) subcutaneou subcutaneou subcutaneo s INJECT 6 s INJECT 6 us INJECT UNITS UNDER UNITS UNDER 6 UNITS THE SKIN 3 THE SKIN 3 UNDER THE TIMES A DAY TIMES A DAY SKIN 3 TIMES A DAY Januvia 100 Januvia 100 No Januvia [facility] mg tablet mg tablet 100 mg [facility] TAKE 1 TAKE 1 tablet dic TABLET BY TABLET BY TAKE 1 Spo rts MOUTH EVERY MOUTH EVERY TABLET BY Medicin MORNING MORNING MOUTH e EVERY MORNING omeprazole omeprazole No 40mg omeprazole [facility] 40 mg 40 mg 40 mg [facility] capsule,del capsule,del capsule,de dic ayed ayed layed Sports release 40 release 40 release 40 Medicin mg by oral mg by oral mg by oral e route. route. route. ondansetron ondansetron No ondansetro [facility] HCl 4 mg HCl 4 mg n HCl 4 mg [facility] tablet Take tablet Take tablet dic 1 tablet 1 tablet Take 1 Sport s every 6 every 6 tablet Medicin hours by hours by every 6 e oral route oral route hours by as needed. as needed. oral route as needed. oseltamivir oseltamivir No oseltamivi [facility] 75 mg 75 mg r 75 mg [facility] capsule capsule capsule dic Sports Medicin e Paxlovid Paxlovid No Paxlovid Aza marya 150 mg-100 150 mg-100 150 mg-100 [facility] mg tablets mg tablets mg tablets dic in a dose in a dose in a dose Sports pack (Renal pack (Renal pack M edicin Dose)(EUA) Dose)(EUA) (Renal e TAKE 2 TAKE 2 Dose)(EUA) TABLETS BY TABLETS BY TAKE 2 MOUTH TWICE MOUTH TWICE TABLETS BY DAILY FOR 5 DAILY FOR 5 MOUTH DAYS. STOP DAYS. STOP TWICE LIPITOR AND LIPITOR AND DAILY FOR TAMSULOSIN TAMSULOSIN 5 DAYS. FOR ONE FOR ONE STOP WEEK WEEK LIPITOR AND TAMSULOSIN FOR ONE WEEK prednisone prednisone No prednisone [facility] 5 mg tablet 5 mg tablet 5 mg [facility] tablet dic Sports Medicin e sulfamethox sulfamethox No sulfametho [facility] azole 800 azole 800 xazole 800 [facility] mg-trimetho mg-trimetho mg-trimeth dic prim 160 mg prim 160 mg oprim 160 Sports tablet Take tablet Take mg tablet Medicin 1 tablet 1 tablet Take 1 e twice a day twice a day tablet by oral by oral twice a route as route as day by directed directed oral route for 10 for 10 as days. days. directed for 10 days. tamsulosin tamsulosin No tamsulosin [facility] 0.4 mg 0.4 mg 0.4 mg [facility] capsule capsule capsule dic TAKE 1 TAKE 1 TAKE 1 Sports CAPSULE BY CAPSULE BY CAPSULE BY Medicin MOUTH MOUTH MOUTH e EVERYDAY AT EVERYDAY AT EVERYDAY BEDTIME BEDTIME AT BEDTIME tramadol 50 tramadol 50 No tramadol [facility] mg tablet mg tablet 50 mg [facility] TAKE 1 TAKE 1 tablet dic TABLET BY TABLET BY TAKE 1 Spo rts MOUTH EVERY MOUTH EVERY TABLET BY Medicin 4 HOURS 4 HOURS MOUTH e NEEDED FOR NEEDED FOR EVERY 4 PAIN PAIN HOURS NEEDED FOR PAIN True Metrix True Metrix No True A zalea Glucose Glucose Metrix [facility] Meter USE Meter USE Glucose di c DIRECTED DIRECTED Meter USE Sports Medicin DIRECTED e True Metrix True Metrix No True A zalea Glucose Glucose Metrix [facility] Test Strip Test Strip Glucose dic CHECK TWICE CHECK TWICE Test Strip Sports A DAY A DAY CHECK Medicin TWICE A e DAY Levemir Levemir No Levemir [facility] FlexTouch FlexTouch FlexTouch [facility] U-100 U-100 U-100 dic Insulin 100 Insulin 100 Insulin Sports unit/mL (3 unit/mL (3 100 Med icin mL) mL) unit/mL (3 e subcutaneou subcutaneou mL) s pen s pen subcutaneo INJECT 14 INJECT 14 us pen UNITS UNITS INJECT 14 SUBCUTANEOU SUBCUTANEOU UNITS SLY DAILY SLY DAILY SUBCUTANEO USLY DAILY lisinopril lisinopril No lisinopril [facility] 20 mg 20 mg 20 mg [facility] tablet TAKE tablet TAKE tablet dic 1 TABLET BY 1 TABLET BY TAKE 1 Sports MOUTH TWICE MOUTH TWICE TABLET BY Medicin A DAY FOR A DAY FOR MOUTH e 90 DAYS 90 DAYS TWICE A DAY FOR 90 DAYS acetaminoph acetaminoph No acetaminop [facility] en 300 en 300 hen 300 [facility] mg-codeine mg-codeine mg-codeine dic 60 mg 60 mg 60 mg Sports tablet TAKE tablet TAKE tablet Medicin 1 TABLET BY 1 TABLET BY TAKE 1 e MOUTH EVERY MOUTH EVERY TABLET BY 8 (EIGHT) 8 (EIGHT) MOUTH HOURS IF HOURS IF EVERY 8 NEEDED FOR NEEDED FOR (EIGHT) MODERATE MODERATE HOURS IF PAIN FOR UP PAIN FOR UP NEEDED FOR TO 7 DAYS TO 7 DAYS MODERATE PAIN FOR UP TO 7 DAYS acetazolami acetazolami No acetazolam [facility] de 250 mg de 250 mg june 250 mg [facility] tablet tablet tablet dic Sports Medicin e methocarbam methocarbam No methocarba [facility] ol 500 mg ol 500 mg mol 500 mg [facility] tablet TAKE tablet TAKE tablet dic 2 TABLETS 2 TABLETS TAKE 2 Spo rts BY MOUTH 4 BY MOUTH 4 TABLETS BY Medicin TIMES A DAY TIMES A DAY MOUTH 4 e FOR 7 DAYS FOR 7 DAYS TIMES A DAY FOR 7 DAYS amlodipine amlodipine No 10mg amlodipine [facility] 10 mg 10 mg 10 mg [facility] tablet 10 tablet 10 tablet 10 dic mg by oral mg by oral mg by oral Sports route. route. route. Medicin e amlodipine amlodipine No amlodipine [facility] 5 mg tablet 5 mg tablet 5 mg [facility] TAKE 1 TAKE 1 tablet dic TABLET BY TABLET BY TAKE 1 Spo rts MOUTH EVERY MOUTH EVERY TABLET BY Medicin DAY FOR 90 DAY FOR 90 MOUTH e DAYS DAYS EVERY DAY FOR 90 DAYS amoxicillin amoxicillin No amoxicilli [facility] 875 mg 875 mg n 875 mg [facility] tablet TAKE tablet TAKE tablet dic 1 TABLET BY 1 TABLET BY TAKE 1 Sports MOUTH TWICE MOUTH TWICE TABLET BY Medicin A DAY A DAY MOUTH e TWICE A DAY amoxicillin amoxicillin No amoxicilli [facility] 875 875 n 875 [facility] mg-potassiu mg-potassiu mg-potassi dic m m um Sports clavulanate clavulanate clavulanat Medicin 125 mg 125 mg e 125 mg e tablet TAKE tablet TAKE tablet 1 TABLET BY 1 TABLET BY TAKE 1 MOUTH TWICE MOUTH TWICE TABLET BY A DAY FOR A DAY FOR MOUTH 10 DAYS FOR 10 DAYS FOR TWICE A SINUS SINUS DAY FOR 10 INFECTION INFECTION DAYS FOR SINUS INFECTION azelastine azelastine No azelastine [facility] 137 mcg 137 mcg 137 mcg [facility] e (0.1 %) (0.1 %) (0.1 %) dic nasal spray nasal spray nasal Sports aerosol USE aerosol USE spray Medicin 1 SPRAY IN 1 SPRAY IN aerosol e EACH EACH USE 1 NOSTRIL NOSTRIL SPRAY IN TWICE A DAY TWICE A DAY EACH DIRECTED DIRECTED NOSTRIL TWICE A DAY DIRECTED azithromyci azithromyci No azithromyc [facility] n 250 mg n 250 mg in 250 mg Or [facility]ope tablet tablet tablet dic Sports Medicin e Basaglar Basaglar No Basaglar Aza marya KwikPen KwikPen KwikPen [facility] e U-100 U-100 U-100 dic Insulin 100 Insulin 100 Insulin Sports unit/mL (3 unit/mL (3 100 Med icin mL) mL) unit/mL (3 e subcutaneou subcutaneou mL) s INJECT 22 s INJECT 22 subcutaneo UNITS UNDER UNITS UNDER us INJECT THE SKIN 1 THE SKIN 1 22 UNITS (ONE) TIME (ONE) TIME UNDER THE EACH DAY EACH DAY SKIN 1 MAX UPTO 26 MAX UPTO 26 (ONE) TIME UNITS DAILY UNITS DAILY EACH DAY MAX UPTO 26 UNITS DAILY BD BD No BD [facility] Ultra-Fine Ultra-Fine Ultra-Fine [facility] Micro Pen Micro Pen Micro Pen dic Needle 32 Needle 32 Needle 32 Sports gauge x gauge x gauge x Medici n 08/30" USE TO 08/30" USE TO 08/30" USE e INJECT INJECT TO INJECT INSULIN INSULIN INSULIN ONCE EVERY ONCE EVERY ONCE EVERY DAY DAY DAY methocarbam methocarbam No methocarba [facility] ol 750 mg ol 750 mg mol 750 mg [facility] tablet TAKE tablet TAKE tablet dic 1 TABLET BY 1 TABLET BY TAKE 1 Sports MOUTH THREE MOUTH THREE TABLET BY Medicin TIMES A DAY TIMES A DAY MOUTH e THREE TIMES A DAY BD BD No BD [facility] Ultra-Fine Ultra-Fine Ultra-Fine [facility] Mini Pen Mini Pen Mini Pen dic Needle 31 Needle 31 Needle 31 Sports gauge x gauge x gauge x Medici n 11/09" USE 11/09" USE 11/09" USE e TO TEST TO TEST TO TEST TWICE A DAY TWICE A DAY TWICE A DAY benzonatate benzonatate No benzonatat [facility] 100 mg 100 mg e 100 mg [facility] capsule capsule capsule dic TAKE 1 TAKE 1 TAKE 1 Sports CAPSULE BY CAPSULE BY CAPSULE BY Medicin MOUTH THREE MOUTH THREE MOUTH e TIMES A DAY TIMES A DAY THREE NEEDED NEEDED TIMES A FOR COUGH FOR COUGH DAY NEEDED FOR COUGH cephalexin cephalexin No cephalexin [facility] 250 mg 250 mg 250 mg [facility] capsule capsule capsule dic TAKE 1 TAKE 1 TAKE 1 Sports CAPSULE CAPSULE CAPSULE Medici n EVERY 6 EVERY 6 EVERY 6 e HOURS BY HOURS BY HOURS BY ORAL ROUTE ORAL ROUTE ORAL ROUTE DIRECTED DIRECTED FOR 10 FOR 10 DIRECTED DAYS. DAYS. FOR 10 DAYS. ciprofloxac ciprofloxac No ciprofloxa [facility] in 500 mg in 500 mg fay 500 mg [facility] tablet TAKE tablet TAKE tablet dic 1 TABLET BY 1 TABLET BY TAKE 1 Sports MOUTH EVERY MOUTH EVERY TABLET BY Medicin 12 HOURS 12 HOURS MOUTH e FOR 7 DAYS FOR 7 DAYS EVERY 12 HOURS FOR 7 DAYS diazepam 5 diazepam 5 No diazepam 5 [facility] mg tablet mg tablet mg tablet [facility] Take 1 Take 1 Take 1 dic tablet tablet tablet Sports every 6 every 6 every 6 Medici n hours by hours by hours by e oral route oral route oral route as needed. as needed. as needed. diclofenac diclofenac No diclofenac [facility] 20 20 20 [facility] mg/gram/act mg/gram/act mg/gram/ac dic uation (2 uation (2 tuation (2 Sports %) topical %) topical %) topical Medicin soln soln soln e metered-dos metered-dos metered-do e pump e pump se pump APPLY 20 APPLY 20 APPLY 20 DROPS TO DROPS TO DROPS TO THE THE THE AFFECTED AFFECTED AFFECTED AREAS 4 AREAS 4 AREAS 4 TIMES DAILY TIMES DAILY TIMES DAILY docusate docusate No docusate Aza marya sodium 100 sodium 100 sodium 100 [facility] mg capsule mg capsule mg capsule dic Take 1 Take 1 Take 1 Sports capsule capsule capsule Medici n twice a day twice a day twice a e by oral by oral day by route as route as oral route directed. directed. as directed. donepezil 5 donepezil 5 No donepezil [facility] mg tablet mg tablet 5 mg [facility] pe tablet dic Sports Medicin e metoprolol metoprolol No metoprolol [facility] tartrate 25 tartrate 25 tartrate [facility] mg tablet mg tablet 25 mg dic TAKE 1/2 TAKE 1/2 tablet Sport s TABLET BY TABLET BY TAKE 1/2 M edicin MOUTH TWICE MOUTH TWICE TABLET BY e EVERY DAY EVERY DAY MOUTH TWICE EVERY DAY fluocinonid fluocinonid No fluocinoni [facility] e 0.05 % e 0.05 % de 0.05 % Or [facility]ope topical gel topical gel topical dic APPLY 1-2 APPLY 1-2 gel APPLY Sports GRAMS TO GRAMS TO 1-2 GRAMS Me dicin THE THE TO THE e AFFECTED AFFECTED AFFECTED AREA 2 AREA 2 AREA 2 TIMES A DAY TIMES A DAY TIMES A DAY fluticasone fluticasone No fluticason [facility] propionate propionate e Ort hope 50 50 propionate dic mcg/actuati mcg/actuati 50 S ports on nasal on nasal mcg/actuat M edicin spray,suspe spray,suspe ion nasal e nsion USE 2 nsion USE 2 spray,susp SPRAYS EACH SPRAYS EACH ension USE SIDE DAILY SIDE DAILY 2 SPRAYS FOR NASAL FOR NASAL EACH SIDE DRAINAGE DRAINAGE DAILY FOR AND AND NASAL ALLERGIES ALLERGIES DRAINAGE AND ALLERGIES glimepiride glimepiride No .5mg glimepirid [facility] 1 mg tablet 1 mg tablet e 1 mg [facility] 0.5 mg by 0.5 mg by tablet 0.5 dic oral route. oral route. mg by oral Sports route. Medicin e hydrocodone hydrocodone No hydrocodon [facility] 10 10 e 10 [facility] mg-acetamin mg-acetamin mg-acetami dic ophen 325 ophen 325 nophen 325 Sports mg tablet mg tablet mg tablet Medicin TAKE 1 TAKE 1 TAKE 1 e TABLET BY TABLET BY TABLET BY MOUTH EVERY MOUTH EVERY MOUTH 4 HOURS 4 HOURS EVERY 4 NEEDED NEEDED HOURS NEEDED Januvia 100 Januvia 100 No Januvia [facility] mg tablet mg tablet 100 mg Ort hope TAKE 1 TAKE 1 tablet dic TABLET BY TABLET BY TAKE 1 Spo rts MOUTH EVERY MOUTH EVERY TABLET BY Medicin MORNING MORNING MOUTH e EVERY MORNING Levemir Levemir No Levemir [facility] FlexTouch FlexTouch FlexTouch [facility] U-100 U-100 U-100 dic Insulin 100 Insulin 100 Insulin Sports unit/mL (3 unit/mL (3 100 Med icin mL) mL) unit/mL (3 e subcutaneou subcutaneou mL) s pen s pen subcutaneo INJECT 14 INJECT 14 us pen UNITS UNITS INJECT 14 SUBCUTANEOU SUBCUTANEOU UNITS SLY DAILY SLY DAILY SUBCUTANEO USLY DAILY metronidazo metronidazo No metronidaz [facility] le 500 mg le 500 mg ole 500 mg [facility] tablet TAKE tablet TAKE tablet dic 1 TABLET BY 1 TABLET BY TAKE 1 Sports MOUTH EVERY MOUTH EVERY TABLET BY Medicin 8 HOURS 8 HOURS MOUTH e EVERY 8 HOURS levocetiriz levocetiriz No 5mg levocetiri [facility] ine 5 mg ine 5 mg zine 5 mg Or thope tablet 5 mg tablet 5 mg tablet 5 dic by oral by oral mg by oral Spo rts route. route. route. Medicin e lidocaine-p lidocaine-p No lidocaine- [facility] rilocaine rilocaine prilocaine [facility] 2.5 %-2.5 % 2.5 %-2.5 % 2.5 %-2.5 dic topical topical % topical Spor ts cream APPLY cream APPLY cream Medicin ? GRAM TO ? GRAM TO APPLY ? e THE THE GRAM TO AFFECTED AFFECTED THE AREA(S) 2 AREA(S) 2 AFFECTED TIMES A DAY TIMES A DAY AREA(S) 2 NEEDED NEEDED TIMES A DAY NEEDED lisinopril lisinopril No 20mg lisinopril [facility] 5 mg tablet 5 mg tablet 5 mg O rthope 20 mg by 20 mg by tablet 20 di c oral route. oral route. mg by oral Sports route. Medicin e methocarbam methocarbam No methocarba [facility] ol 500 mg ol 500 mg mol 500 mg [facility] tablet Take tablet Take tablet dic 1 tablet 1 tablet Take 1 Sport s every 6 every 6 tablet Medicin hours by hours by every 6 e oral route oral route hours by as needed. as needed. oral route as needed. methocarbam methocarbam No methocarba [facility] ol 750 mg ol 750 mg mol 750 mg [facility] tablet Take tablet Take tablet dic 1 tablet 1 tablet Take 1 Sport s every 6 every 6 tablet Medicin hours by hours by every 6 e oral route oral route hours by as needed. as needed. oral route as needed. methylpredn methylpredn No methylpred [facility] isolone 4 isolone 4 nisolone 4 [facility] mg tablets mg tablets mg tablets dic in a dose in a dose in a dose Sports pack USE pack USE pack USE Medicin DIRECTED DIRECTED e DIRECTED metronidazo metronidazo No metronidaz [facility] le 500 mg le 500 mg ole 500 mg [facility] tablet TAKE tablet TAKE tablet dic 1 TABLET BY 1 TABLET BY TAKE 1 Sports MOUTH EVERY MOUTH EVERY TABLET BY Medicin 8 HOURS 8 HOURS MOUTH e EVERY 8 HOURS nitroglycer nitroglycer No nitroglyce [facility] in 0.4 mg in 0.4 mg rin 0.4 mg [facility] sublingual sublingual sublingual dic tablet tablet tablet Sports PLEASE SEE PLEASE SEE PLEASE SEE Medicin ATTACHED ATTACHED ATTACHED e FOR FOR FOR DETAILED DETAILED DETAILED DIRECTIONS DIRECTIONS DIRECTIONS Novolog Novolog No Novolog [facility] FlexPen FlexPen FlexPen [facility] e U-100 U-100 U-100 dic Insulin Insulin Insulin Sports aspart 100 aspart 100 aspart 100 Medicin unit/mL (3 unit/mL (3 unit/mL (3 e mL) mL) mL) subcutaneou subcutaneou subcutaneo s INJECT 6 s INJECT 6 us INJECT UNITS UNDER UNITS UNDER 6 UNITS THE SKIN 3 THE SKIN 3 UNDER THE TIMES A DAY TIMES A DAY SKIN 3 TIMES A DAY ondansetron ondansetron No ondansetro [facility] 4 mg 4 mg n 4 mg [facility] disintegrat disintegrat disintegra dic ing tablet ing tablet ting Spo rts tablet Medicin e ondansetron ondansetron No ondansetro [facility] HCl 4 mg HCl 4 mg n HCl 4 mg O r[facility]ope tablet Take tablet Take tablet dic 1 tablet 1 tablet Take 1 Sport s every 6 every 6 tablet Medicin hours by hours by every 6 e oral route oral route hours by as needed. as needed. oral route as needed. oseltamivir oseltamivir No oseltamivi [facility] 75 mg 75 mg r 75 mg [facility] capsule capsule capsule dic Sports Medicin e Paxlovid Paxlovid No Paxlovid Aza marya 150 mg-100 150 mg-100 150 mg-100 [facility] mg tablets mg tablets mg tablets dic in a dose in a dose in a dose Sports pack (Renal pack (Renal pack M edicin Dose)(EUA) Dose)(EUA) (Renal e TAKE 2 TAKE 2 Dose)(EUA) TABLETS BY TABLETS BY TAKE 2 MOUTH TWICE MOUTH TWICE TABLETS BY DAILY FOR 5 DAILY FOR 5 MOUTH DAYS. STOP DAYS. STOP TWICE LIPITOR AND LIPITOR AND DAILY FOR TAMSULOSIN TAMSULOSIN 5 DAYS. FOR ONE FOR ONE STOP WEEK WEEK LIPITOR AND TAMSULOSIN FOR ONE WEEK prednisone prednisone No prednisone [facility] 5 mg tablet 5 mg tablet 5 mg O r[facility]ope tablet dic Sports Medicin e sulfamethox sulfamethox No sulfametho [facility] azole 800 azole 800 xazole 800 [facility] mg-trimetho mg-trimetho mg-trimeth dic prim 160 mg prim 160 mg oprim 160 Sports tablet Take tablet Take mg tablet Medicin 1 tablet 1 tablet Take 1 e twice a day twice a day tablet by oral by oral twice a route as route as day by directed directed oral route for 10 for 10 as days. days. directed for 10 days. omeprazole omeprazole No omeprazole [facility] 40 mg 40 mg 40 mg [facility] capsule,del capsule,del capsule,de dic ayed ayed layed Sports release release release Medici n TAKE 1 TAKE 1 TAKE 1 e CAPSULE BY CAPSULE BY CAPSULE BY MOUTH EVERY MOUTH EVERY MOUTH DAY IN THE DAY IN THE EVERY DAY MORNING MORNING IN THE MORNING tramadol 50 tramadol 50 No tramadol [facility] mg tablet mg tablet 50 mg [facility] TAKE 1 TAKE 1 tablet dic TABLET BY TABLET BY TAKE 1 Spo rts MOUTH EVERY MOUTH EVERY TABLET BY Medicin 4 HOURS 4 HOURS MOUTH e NEEDED FOR NEEDED FOR EVERY 4 PAIN PAIN HOURS NEEDED FOR PAIN True Metrix True Metrix No True A zalea Glucose Glucose Metrix [facility] Meter USE Meter USE Glucose di c DIRECTED DIRECTED Meter USE Sports Medicin DIRECTED e True Metrix True Metrix No True A zalea Glucose Glucose Metrix [facility] Test Strip Test Strip Glucose dic CHECK TWICE CHECK TWICE Test Strip Sports A DAY A DAY CHECK Medicin TWICE A e DAY ondansetron ondansetron No ondansetro [facility] HCl 4 mg HCl 4 mg n HCl 4 mg O r[facility]ope tablet TAKE tablet TAKE tablet dic 1 TABLET BY 1 TABLET BY TAKE 1 Sports MOUTH TWICE MOUTH TWICE TABLET BY Medicin A DAY A DAY MOUTH e TWICE A DAY Paxlovid Paxlovid No Paxlovid Aza marya 150 mg-100 150 mg-100 150 mg-100 [facility] mg tablets mg tablets mg tablets dic in a dose in a dose in a dose Sports pack (Renal pack (Renal pack M edicin Dose)(EUA) Dose)(EUA) (Renal e TAKE 2 TAKE 2 Dose)(EUA) TABLETS BY TABLETS BY TAKE 2 MOUTH TWICE MOUTH TWICE TABLETS BY DAILY FOR 5 DAILY FOR 5 MOUTH DAYS. STOP DAYS. STOP TWICE LIPITOR AND LIPITOR AND DAILY FOR TAMSULOSIN TAMSULOSIN 5 DAYS. FOR ONE FOR ONE STOP WEEK WEEK LIPITOR AND TAMSULOSIN FOR ONE WEEK acetaminoph acetaminoph No acetaminop [facility] en 300 en 300 hen 300 [facility] mg-codeine mg-codeine mg-codeine dic 60 mg 60 mg 60 mg Sports tablet TAKE tablet TAKE tablet Medicin 1 TABLET BY 1 TABLET BY TAKE 1 e MOUTH EVERY MOUTH EVERY TABLET BY 8 (EIGHT) 8 (EIGHT) MOUTH HOURS IF HOURS IF EVERY 8 NEEDED FOR NEEDED FOR (EIGHT) MODERATE MODERATE HOURS IF PAIN FOR UP PAIN FOR UP NEEDED FOR TO 7 DAYS TO 7 DAYS MODERATE PAIN FOR UP TO 7 DAYS acetazolami acetazolami No acetazolam [facility] de 250 mg de 250 mg june 250 mg [facility] tablet tablet tablet dic Sports Medicin e amlodipine amlodipine No 10mg amlodipine [facility] 10 mg 10 mg 10 mg [facility] tablet 10 tablet 10 tablet 10 dic mg by oral mg by oral mg by oral Sports route. route. route. Medicin e amlodipine amlodipine No amlodipine [facility] 5 mg tablet 5 mg tablet 5 mg O [facility]ope TAKE 1 TAKE 1 tablet dic TABLET BY TABLET BY TAKE 1 Spo rts MOUTH EVERY MOUTH EVERY TABLET BY Medicin DAY FOR 90 DAY FOR 90 MOUTH e DAYS DAYS EVERY DAY FOR 90 DAYS tamsulosin tamsulosin No tamsulosin [facility] 0.4 mg 0.4 mg 0.4 mg [facility] capsule capsule capsule dic TAKE 1 TAKE 1 TAKE 1 Sports CAPSULE BY CAPSULE BY CAPSULE BY Medicin MOUTH EVERY MOUTH EVERY MOUTH e DAY AT DAY AT EVERY DAY BEDTIME BEDTIME AT BEDTIME amoxicillin amoxicillin No amoxicilli [facility] 875 mg 875 mg n 875 mg [facility] tablet TAKE tablet TAKE tablet dic 1 TABLET BY 1 TABLET BY TAKE 1 Sports MOUTH TWICE MOUTH TWICE TABLET BY Medicin A DAY A DAY MOUTH e TWICE A DAY amoxicillin amoxicillin No amoxicilli [facility] 875 875 n 875 [facility] mg-potassiu mg-potassiu mg-potassi dic m m um Sports clavulanate clavulanate clavulanat Medicin 125 mg 125 mg e 125 mg e tablet TAKE tablet TAKE tablet 1 TABLET BY 1 TABLET BY TAKE 1 MOUTH TWICE MOUTH TWICE TABLET BY A DAY FOR A DAY FOR MOUTH 10 DAYS FOR 10 DAYS FOR TWICE A SINUS SINUS DAY FOR 10 INFECTION INFECTION DAYS FOR SINUS INFECTION azelastine azelastine No azelastine [facility] 137 mcg 137 mcg 137 mcg [facility] e (0.1 %) (0.1 %) (0.1 %) dic nasal spray nasal spray nasal Sports aerosol USE aerosol USE spray Medicin 1 SPRAY IN 1 SPRAY IN aerosol e EACH EACH USE 1 NOSTRIL NOSTRIL SPRAY IN TWICE A DAY TWICE A DAY EACH DIRECTED DIRECTED NOSTRIL TWICE A DAY DIRECTED azithromyci azithromyci No azithromyc [facility] n 250 mg n 250 mg in 250 mg Or thope tablet tablet tablet dic Sports Medicin e Basaglar Basaglar No Basaglar Aza marya KwikPen KwikPen KwikPen [facility] e U-100 U-100 U-100 dic Insulin 100 Insulin 100 Insulin Sports unit/mL (3 unit/mL (3 100 Med icin mL) mL) unit/mL (3 e subcutaneou subcutaneou mL) s INJECT 22 s INJECT 22 subcutaneo UNITS UNDER UNITS UNDER us INJECT THE SKIN 1 THE SKIN 1 22 UNITS (ONE) TIME (ONE) TIME UNDER THE EACH DAY EACH DAY SKIN 1 MAX UPTO 26 MAX UPTO 26 (ONE) TIME UNITS DAILY UNITS DAILY EACH DAY MAX UPTO 26 UNITS DAILY BD BD No BD [facility] Ultra-Fine Ultra-Fine Ultra-Fine [facility] Micro Pen Micro Pen Micro Pen dic Needle 32 Needle 32 Needle 32 Sports gauge x gauge x gauge x Medici n /" USE TO 08/30" USE TO 08/30" USE e INJECT INJECT TO INJECT INSULIN INSULIN INSULIN ONCE EVERY ONCE EVERY ONCE EVERY DAY DAY DAY BD BD No BD [facility] Ultra-Fine Ultra-Fine Ultra-Fine [facility] Mini Pen Mini Pen Mini Pen dic Needle 31 Needle 31 Needle 31 Sports gauge x gauge x gauge x Medici n 11/09" USE 11/09" USE 11/09" USE e TO TEST TO TEST TO TEST TWICE A DAY TWICE A DAY TWICE A DAY benzonatate benzonatate No benzonatat [facility] 100 mg 100 mg e 100 mg [facility] capsule capsule capsule dic TAKE 1 TAKE 1 TAKE 1 Sports CAPSULE BY CAPSULE BY CAPSULE BY Medicin MOUTH THREE MOUTH THREE MOUTH e TIMES A DAY TIMES A DAY THREE NEEDED NEEDED TIMES A FOR COUGH FOR COUGH DAY NEEDED FOR COUGH tramadol 50 tramadol 50 No tramadol [facility] mg tablet mg tablet 50 mg Orth [facility]pe TAKE 1 TAKE 1 tablet dic TABLET BY TABLET BY TAKE 1 Spo rts MOUTH EVERY MOUTH EVERY TABLET BY Medicin 4 HOURS 4 HOURS MOUTH e NEEDED FOR NEEDED FOR EVERY 4 PAIN PAIN HOURS NEEDED FOR PAIN cephalexin cephalexin No cephalexin [facility] 250 mg 250 mg 250 mg [facility] capsule capsule capsule dic TAKE 1 TAKE 1 TAKE 1 Sports CAPSULE CAPSULE CAPSULE Medici n EVERY 6 EVERY 6 EVERY 6 e HOURS BY HOURS BY HOURS BY ORAL ROUTE ORAL ROUTE ORAL ROUTE DIRECTED DIRECTED FOR 10 FOR 10 DIRECTED DAYS. DAYS. FOR 10 DAYS. ciprofloxac ciprofloxac No ciprofloxa [facility] in 500 mg in 500 mg fay 500 mg [facility] tablet TAKE tablet TAKE tablet dic 1 TABLET BY 1 TABLET BY TAKE 1 Sports MOUTH EVERY MOUTH EVERY TABLET BY Medicin 12 HOURS 12 HOURS MOUTH e FOR 7 DAYS FOR 7 DAYS EVERY 12 HOURS FOR 7 DAYS diazepam 5 diazepam 5 No diazepam 5 [facility] mg tablet mg tablet mg tablet [facility] Take 1 Take 1 Take 1 dic tablet tablet tablet Sports every 6 every 6 every 6 Medici n hours by hours by hours by e oral route oral route oral route as needed. as needed. as needed. diclofenac diclofenac No diclofenac [facility] 20 20 20 [facility] mg/gram/act mg/gram/act mg/gram/ac dic uation (2 uation (2 tuation (2 Sports %) topical %) topical %) topical Medicin soln soln soln e metered-dos metered-dos metered-do e pump e pump se pump APPLY 20 APPLY 20 APPLY 20 DROPS TO DROPS TO DROPS TO THE THE THE AFFECTED AFFECTED AFFECTED AREAS 4 AREAS 4 AREAS 4 TIMES DAILY TIMES DAILY TIMES DAILY docusate docusate No docusate Aza marya sodium 100 sodium 100 sodium 100 [facility] mg capsule mg capsule mg capsule dic Take 1 Take 1 Take 1 Sports capsule capsule capsule Medici n twice a day twice a day twice a e by oral by oral day by route as route as oral route directed. directed. as directed. donepezil 5 donepezil 5 No donepezil [facility] mg tablet mg tablet 5 mg [facility] pe tablet dic Sports Medicin e fluocinonid fluocinonid No fluocinoni [facility] e 0.05 % e 0.05 % de 0.05 % Or thope topical gel topical gel topical dic APPLY 1-2 APPLY 1-2 gel APPLY Sports GRAMS TO GRAMS TO 1-2 GRAMS Me dicin THE THE TO THE e AFFECTED AFFECTED AFFECTED AREA 2 AREA 2 AREA 2 TIMES A DAY TIMES A DAY TIMES A DAY True Metrix True Metrix No True A zalea Glucose Glucose Metrix [facility] Meter USE Meter USE Glucose di c DIRECTED DIRECTED Meter USE Sports Medicin DIRECTED e fluticasone fluticasone No fluticason [facility] propionate propionate e Ort hope 50 50 propionate dic mcg/actuati mcg/actuati 50 S ports on nasal on nasal mcg/actuat M edicin spray,suspe spray,suspe ion nasal e nsion USE 2 nsion USE 2 spray,susp SPRAYS EACH SPRAYS EACH ension USE SIDE DAILY SIDE DAILY 2 SPRAYS FOR NASAL FOR NASAL EACH SIDE DRAINAGE DRAINAGE DAILY FOR AND AND NASAL ALLERGIES ALLERGIES DRAINAGE AND ALLERGIES glimepiride glimepiride No .5mg glimepirid [facility] 1 mg tablet 1 mg tablet e 1 mg [facility] 0.5 mg by 0.5 mg by tablet 0.5 dic oral route. oral route. mg by oral Sports route. Medicin e hydrocodone hydrocodone No hydrocodon [facility] 10 10 e 10 [facility] mg-acetamin mg-acetamin mg-acetami dic ophen 325 ophen 325 nophen 325 Sports mg tablet mg tablet mg tablet Medicin TAKE 1 TAKE 1 TAKE 1 e TABLET BY TABLET BY TABLET BY MOUTH EVERY MOUTH EVERY MOUTH 4 HOURS 4 HOURS EVERY 4 NEEDED NEEDED HOURS NEEDED Januvia 100 Januvia 100 No Januvia [facility] mg tablet mg tablet 100 mg [facility] hope TAKE 1 TAKE 1 tablet dic TABLET BY TABLET BY TAKE 1 Spo rts MOUTH EVERY MOUTH EVERY TABLET BY Medicin MORNING MORNING MOUTH e EVERY MORNING Levemir Levemir No Levemir [facility] FlexTouch FlexTouch FlexTouch [facility] U-100 U-100 U-100 dic Insulin 100 Insulin 100 Insulin Sports unit/mL (3 unit/mL (3 100 Med icin mL) mL) unit/mL (3 e subcutaneou subcutaneou mL) s pen s pen subcutaneo INJECT 14 INJECT 14 us pen UNITS UNITS INJECT 14 SUBCUTANEOU SUBCUTANEOU UNITS SLY DAILY SLY DAILY SUBCUTANEO USLY DAILY levocetiriz levocetiriz No 5mg levocetiri [facility] ine 5 mg ine 5 mg zine 5 mg Or thope tablet 5 mg tablet 5 mg tablet 5 dic by oral by oral mg by oral Spo rts route. route. route. Medicin e lidocaine-p lidocaine-p No lidocaine- [facility] rilocaine rilocaine prilocaine [facility] 2.5 %-2.5 % 2.5 %-2.5 % 2.5 %-2.5 dic topical topical % topical Spor ts cream APPLY cream APPLY cream Medicin ? GRAM TO ? GRAM TO APPLY ? e THE THE GRAM TO AFFECTED AFFECTED THE AREA(S) 2 AREA(S) 2 AFFECTED TIMES A DAY TIMES A DAY AREA(S) 2 NEEDED NEEDED TIMES A DAY NEEDED True Metrix True Metrix No True A zalea Glucose Glucose Metrix [facility] Test Strip Test Strip Glucose dic CHECK TWICE CHECK TWICE Test Strip Sports A DAY A DAY CHECK Medicin TWICE A e DAY lisinopril lisinopril No 20mg lisinopril [facility] 5 mg tablet 5 mg tablet 5 mg O [facility]ope 20 mg by 20 mg by tablet 20 di c oral route. oral route. mg by oral Sports route. Medicin e methocarbam methocarbam No methocarba [facility] ol 500 mg ol 500 mg mol 500 mg [facility] tablet Take tablet Take tablet dic 1 tablet 1 tablet Take 1 Sport s every 6 every 6 tablet Medicin hours by hours by every 6 e oral route oral route hours by as needed. as needed. oral route as needed. methocarbam methocarbam No methocarba [facility] ol 750 mg ol 750 mg mol 750 mg [facility] tablet Take tablet Take tablet dic 1 tablet 1 tablet Take 1 Sport s every 6 every 6 tablet Medicin hours by hours by every 6 e oral route oral route hours by as needed. as needed. oral route as needed. methylpredn methylpredn No methylpred [facility] isolone 4 isolone 4 nisolone 4 [facility] mg tablets mg tablets mg tablets dic in a dose in a dose in a dose Sports pack USE pack USE pack USE Medicin DIRECTED DIRECTED e DIRECTED metronidazo metronidazo No metronidaz [facility] le 500 mg le 500 mg ole 500 mg [facility] tablet TAKE tablet TAKE tablet dic 1 TABLET BY 1 TABLET BY TAKE 1 Sports MOUTH EVERY MOUTH EVERY TABLET BY Medicin 8 HOURS 8 HOURS MOUTH e EVERY 8 HOURS Novolog Novolog No Novolog [facility] FlexPen FlexPen FlexPen [facility] e U-100 U-100 U-100 dic Insulin Insulin Insulin Sports aspart 100 aspart 100 aspart 100 Medicin unit/mL (3 unit/mL (3 unit/mL (3 e mL) mL) mL) subcutaneou subcutaneou subcutaneo s INJECT 6 s INJECT 6 us INJECT UNITS UNDER UNITS UNDER 6 UNITS THE SKIN 3 THE SKIN 3 UNDER THE TIMES A DAY TIMES A DAY SKIN 3 TIMES A DAY ondansetron ondansetron No ondansetro [facility] 4 mg 4 mg n 4 mg [facility] disintegrat disintegrat disintegra dic ing tablet ing tablet ting Spo rts tablet Medicin e ondansetron ondansetron No ondansetro [facility] HCl 4 mg HCl 4 mg n HCl 4 mg O [facility] tablet Take tablet Take tablet dic 1 tablet 1 tablet Take 1 Sport s every 6 every 6 tablet Medicin hours by hours by every 6 e oral route oral route hours by as needed. as needed. oral route as needed. oseltamivir oseltamivir No oseltamivi [facility] 75 mg 75 mg r 75 mg [facility] capsule capsule capsule dic Sports Medicin e Paxlovid Paxlovid No Paxlovid Aza marya 150 mg-100 150 mg-100 150 mg-100 [facility] mg tablets mg tablets mg tablets dic in a dose in a dose in a dose Sports pack (Renal pack (Renal pack M edicin Dose)(EUA) Dose)(EUA) (Renal e TAKE 2 TAKE 2 Dose)(EUA) TABLETS BY TABLETS BY TAKE 2 MOUTH TWICE MOUTH TWICE TABLETS BY DAILY FOR 5 DAILY FOR 5 MOUTH DAYS. STOP DAYS. STOP TWICE LIPITOR AND LIPITOR AND DAILY FOR TAMSULOSIN TAMSULOSIN 5 DAYS. FOR ONE FOR ONE STOP WEEK WEEK LIPITOR AND TAMSULOSIN FOR ONE WEEK prednisone prednisone No prednisone [facility] 5 mg tablet 5 mg tablet 5 mg O [facility]ope tablet dic Sports Medicin e sulfamethox sulfamethox No sulfametho [facility] azole 800 azole 800 xazole 800 [facility] mg-trimetho mg-trimetho mg-trimeth dic prim 160 mg prim 160 mg oprim 160 Sports tablet Take tablet Take mg tablet Medicin 1 tablet 1 tablet Take 1 e twice a day twice a day tablet by oral by oral twice a route as route as day by directed directed oral route for 10 for 10 as days. days. directed for 10 days. tramadol 50 tramadol 50 No tramadol [facility] mg tablet mg tablet 50 mg Orth [facility] TAKE 1 TAKE 1 tablet dic TABLET BY TABLET BY TAKE 1 Spo rts MOUTH EVERY MOUTH EVERY TABLET BY Medicin 4 HOURS 4 HOURS MOUTH e NEEDED FOR NEEDED FOR EVERY 4 PAIN PAIN HOURS NEEDED FOR PAIN True Metrix True Metrix No True A zalea Glucose Glucose Metrix [facility] Meter USE Meter USE Glucose di c DIRECTED DIRECTED Meter USE Sports Medicin DIRECTED e Immunizations Ordered Immunization Filled Immunization Date Status Commen ts Source Name Name pneumococcal 2011-09-23 [facility] 03:14:00 pneumococcal 2011-09-23 [facility] 03:14:00 pneumococcal 2011-09-23 [facility]pleted [facility] 03:14:00 pneumococcal 2011-09-23 [facility]pleted [facility]-val[facility] 03:14:00 pneumococcal 2011-09-23 [facility]pleted [facility]-val[facility] 03:14:00 pneumococcal 2011-09-23 Completed [facility]-valent [facility] 03:14:00 pneumococcal 2011-09-23 Completed [facility]-val[facility] 03:14:00 pneumococcal 2011-09-23 Completed [facility]-valent vaccine 03:14:00 pneumococcal pneumococcal 2011-09-22 Completed [facility] polysaccharide PPV23 polysaccharide PPV23 00:00:00 [facility] pneumococcal pneumococcal 2011-09-22 Completed [facility] polysaccharide PPV23 polysaccharide PPV23 00:00:00 [facility] pneumococcal pneumococcal 2011-09-22 Completed [facility] polysaccharide PPV23 polysaccharide PPV23 00:00:00 [facility] Vital Signs Vital Name Observation Time Observation Value Comments Source Height 2022-12-21 00:00:00 70 [in_i] [facility] BMI (Body Mass 2022-12-21 00:00:00 30.8 kg/m2 [facility] Body Weight 2022-12-21 00:00:00 215 [lb_av] [facility] Height 2022-11-16 00:00:00 70 [in_i] [facility] BMI (Body Mass 2022-11-16 00:00:00 30.8 kg/m2 [facility] Body Weight 2022-11-16 00:00:00 215 [lb_av] [facility] BP Diastolic 2022-10-05 00:00:00 104 mm[Hg] [facility] Height 2022-10-05 00:00:00 70 [in_i] [facility] BMI (Body Mass 2022-10-05 00:00:00 30.8 kg/m2 [facility] BP Systolic 2022-10-05 00:00:00 190 mm[Hg] [facility] Body Weight 2022-10-05 00:00:00 215 [lb_av] [facility] Height 2022-09-29 00:00:00 70 [in_i] [facility] BMI (Body Mass 2022-09-29 00:00:00 29.1 kg/m2 [facility] Body Weight 2022-09-29 00:00:00 203 [lb_av] [facility] BMI (Body Mass 2022-06-05 00:00:00 29.1 kg/m2 [facility] Body Weight 2022-06-05 00:00:00 203 [lb_av] [facility] Height 2022-06-05 00:00:00 70 [in_i] [facility] WEIGHT 2022-05-01 22:00:00 136 kg WEIGHT 2022-05-01 22:00:00 136 kg WEIGHT 2022-05-01 22:00:00 136 kg Systolic blood 2021-09-19 17:39:00 148 mm[Hg] [facility] Diastolic blood 2021-09-19 17:39:00 90 mm[Hg] [facility] pressure [facility] Heart rate 2021-09-19 17:36:00 69 /min [facility] Body temperature 2021-09-19 17:36:00 36.22 [facility] Body height 2021-09-19 17:36:[address] [facility] Body weight 2021-09-19 17:36:[address] [facility] BMI 2021-09-19 17:36:00 30.20 kg/m2 [facility] Oxygen saturation in 2021-09-19 17:36:00 98 /min [facility] Arterial blood by [facility] Pulse oximetry Branch Systolic (mm Hg) 2022-06-15 19:39:00 Danilo rial Diastolic (mm Hg) 2022-06-15 19:39:00 Mem [facility] Heart Rate 2022-06-15 19:39:00 [facility] Height 2022-06-15 19:39:00 8 [ft_i] [facility] Weight 2022-06-15 19:39:00 [facility] BMI Calculated 2022-06-15 19:39:00 Yusef al Systolic blood 2022-05-04 11:25:00 124 mm[Hg] [facility] Diastolic blood 2022-05-04 11:25:00 82 mm[Hg] [facility] Heart rate 2022-05-04 11:25:00 72 /min [facility] Body temperature 2022-05-04 11:25:00 35.94 Luz Maria [facility] Respiratory rate 2022-05-04 11:25:00 19 /min [facility] Oxygen saturation in 2022-05-04 11:25:00 97 /min [facility] Arterial blood by [facility] Pulse oximetry Body weight 2022-05-01 22:00:00 136 kg [facility] BMI 2022-05-01 22:00:00 42.92 kg/m2 [facility] Systolic (mm Hg) 2022-02-17 16:37:00 Danilo rial [facility] Diastolic (mm Hg) 2022-02-17 16:37:00 Mem orial Heart Rate 2022-02-17 16:37:00 [facility] Respitory Rate 2022-02-17 16:37:00 Memori al Height 2022-02-17 16:37:00 175.26 cm [facility] Weight 2022-02-17 16:37:00 [facility] BMI Calculated 2022-02-17 16:37:00 [facility] Systolic (mm Hg) 2022-01-24 13:06:00 Danilo rial Diastolic (mm Hg) 2022-01-24 13:06:00 Mem orial Heart Rate 2022-01-24 13:06:00 [facility] Respitory Rate 2022-01-24 13:06:00 [facility] Height 2022-01-24 13:06:00 175.26 cm [facility] Weight 2022-01-24 13:06:00 [facility] BMI Calculated 2022-01-24 13:06:00 Mem[facility] al Systolic (mm Hg) 2022-01-12 14:35:00 Danilo rial Diastolic (mm Hg) 2022-01-12 14:35:00 Mem orial Heart Rate 2022-01-12 14:35:00 [facility] Respitory Rate 2022-01-12 14:35:00 [facility] Height 2022-01-12 14:35:00 175.26 cm [facility] Weight 2022-01-12 14:35:00 [facility] BMI Calculated 2022-01-12 14:35:00 Mem[facility] al Systolic (mm Hg) 2021-12-15 14:00:00 Danilo rial Diastolic (mm Hg) 2021-12-15 14:00:00 [facility] Heart Rate 2021-12-15 14:00:00 [facility] Respitory Rate 2021-12-15 14:00:00 Mem[facility] al Height 2021-12-15 14:00:00 177.8 cm [facility] Weight 2021-12-15 14:00:00 [facility] BMI Calculated 2021-12-15 14:00:00 Mem[facility] al Systolic (mm Hg) 2020-12-17 18:06:00 Danilo rial [facility] Diastolic (mm Hg) 2020-12-17 18:06:00 Mem [facility]rial Heart Rate 2020-12-17 18:06:00 [facility] Respitory Rate 2020-12-17 18:06:00 [facility] Weight 2020-12-17 18:06:00 [facility] Systolic (mm Hg) 2019-05-27 20:25:00 Danilo rial [facility] Diastolic (mm Hg) 2019-05-27 20:25:00 Mem orial Heart Rate 2019-05-27 20:25:00 [facility] Respitory Rate 2019-05-27 20:25:00 [facility] Height 2019-05-27 20:25:00 175.26 cm [facility] Weight 2019-05-27 20:25:00 [facility] BMI Calculated 2019-05-27 20:25:00 [facility] Systolic (mm Hg) 2011-10-01 14:00:00 Danilo rial [facility] Heart Rate 2011-10-01 14:00:00 [facility] Diastolic (mm Hg) 2011-10-01 14:00:00 Mem orial [facility]oper Temperature Oral (F) 2011-10-01 14:00:00 98.4 F [facility] Temperature Oral (F) 2011-10-01 10:44:00 100.3 F [facility] Heart Rate 2011-10-01 10:44:00 [facility] Systolic (mm Hg) 2011-10-01 10:44:00 Danilo rial Hooper Diastolic (mm Hg) 2011-10-01 10:44:00 Mem orial Respitory Rate 2011-10-01 10:44:00 Memori al [facility] Heart Rate 2011-10-01 03:28:00 [facility] Temperature Oral (F) 2011-10-01 03:28:00 98.1 F [facility] Respitory Rate 2011-10-01 03:28:00 Memori al [facility] Diastolic (mm Hg) 2011-10-01 03:28:00 Mem orial Systolic (mm Hg) 2011-10-01 03:28:00 Danilo rial Respitory Rate 2011-10-01 02:03:00 Memori al Height 2011-09-30 15:52:00 177.80 cm [facility] Weight 2011-09-30 15:52:00 [facility] Diastolic (mm Hg) 2011-09-23 14:15:00 Mem orial [facility]oper Temperature Oral (F) 2011-09-23 14:15:00 98.8 F [facility] Heart Rate 2011-09-23 14:15:00 [facility] Systolic (mm Hg) 2011-09-23 14:15:00 Danilo rial Respitory Rate 2011-09-23 14:15:00 Memori al Temperature Oral (F) 2011-09-23 10:00:00 98.6 F [facility] Heart Rate 2011-09-23 10:00:00 [facility] Respitory Rate 2011-09-23 10:00:00 Memori al Diastolic (mm Hg) 2011-09-23 10:00:00 Mem orial [facility] Systolic (mm Hg) 2011-09-23 10:00:00 Danilo rial Diastolic (mm Hg) 2011-09-23 04:00:00 Mem orial [facility] Systolic (mm Hg) 2011-09-23 04:00:00 Danilo rial [facility]oper Respitory Rate 2011-09-23 04:00:00 Memori al [facility] Temperature Oral (F) 2011-09-23 04:00:00 97.6 F [facility] Heart Rate 2011-09-23 04:00:00 [facility] Weight 2011-09-21 04:26:00 [facility] Height 2011-09-21 04:26:00 177.80 cm [facility] Procedures Procedure Date / Time Performing Clinician Source Performed XR, cervical spine, 2 or 2022-12-21 00:00:00 Babatunde malhotra Orthopedic 3 view Sports Medicine RADEX SPI LUMBOSAC 2022-12-21 00:00:00 Mary Jo Or thopedic MINIMUM 4 VIEWS Sports Medicine MRI CERVICAL SPINE W/O 2022-12-18 00:00:00 Azale a Orthopedic CONTRAST Sports Medicine MRI, lumbar spine, w/o 2022-12-18 00:00:00 Azale a Orthopedic contrast Sports Medicine MRI CERVICAL SPINE W/O 2022-12-14 00:00:00 Azale a Orthopedic CONTRAST Sports Medicine MRI, lumbar spine, w/o 2022-12-14 00:00:00 Azale a Orthopedic contrast Sports Medicine XR, cervical spine, 2 or 2022-11-16 00:00:00 Aza marya Orthopedic 3 view Sports Medicine RADEX SPI LUMBOSAC 2022-11-16 00:00:00 Mary Jo Or opedic MINIMUM 4 VIEWS Sports Medicine [id number] 2022-11-01 00:00:00 [facility] [id number] 2022-11-01 00:00:00 [facility] [id number] 2022-11-01 00:00:00 [facility] [id number] 2022-11-01 00:00:00 [facility] [id number] 2022-11-01 00:00:00 [facility] [id number] 2022-11-01 00:00:00 [facility] [id number] 2022-11-01 00:00:00 [facility] [id number] 2022-11-01 00:00:00 [facility] [id number] 2022-11-01 00:00:00 [facility] [id number] 2022-11-01 00:00:00 [facility] [id number] 2022-10-31 00:00:00 [facility] [id number] 2022-10-31 00:00:00 [facility] [id number] 2022-10-31 00:00:00 [facility] [id number] 2022-10-31 00:00:00 [facility] [id number] 2022-10-31 00:00:00 [facility] electromyogram + nerve 2022-10-03 00:00:00 Yeimi lucas Orthopedic conduction study Sports Medicine RADEX SPI CRV MINIMUM 4 2022-09-29 00:00:00 Betsy sánchez Orthopedic VIEWS Sports Medicine CONSENT/REFUSAL FOR 2022-06-20 15:05:14 Doctor Unassigned, [facility] DIAGNOSIS AND TREATMENT [facility] XR CHEST 2 VW 2022-06-14 16:03:16 [facility] R Medical Branch REFERRAL- 2022-06-09 05:01:00 Doctor Unassigned, [facility] REQUEST/RESPONSE [facility] RADEX SPI CRV MINIMUM 4 2022-05-15 00:00:00 Betsy sánchez Orthopedic VIEWS Sports Medicine RADEX SPI LUMBOSAC 2/3 2022-05-15 00:00:00 Yeimi lucas Orthopedic VIEWS Sports Medicine BASIC METABOLIC PANEL 2022-05-04 04:20:00 CaitlynNapoleon gustafson Hyunna [facility] HEPATIC FUNCTION PANEL 2022-05-04 04:20:00 Napoleon Virk Hyunna C [facility] POCT-GLUCOSE METER 2022-05-03 21:18:00 Caitlyn, Napoleon betia [facility] HEPATIC FUNCTION PANEL 2022-05-03 04:19:00 Maddie Carrasco CH [facility] BASIC METABOLIC PANEL 2022-05-03 04:19:00 CaitlynNapoleon gustafson Hyunna [facility] CBC (HEMOGRAM ONLY) 2022-05-03 04:19:00 Sarah Virksa Hyunna [facility] POCT-GLUCOSE METER 2022-05-02 23:11:00 Caitlyn, Napoleon unna [facility] POCT-GLUCOSE METER 2022-05-02 16:28:00 Caitlyn Napoleon Hybetia [facility] POCT-GLUCOSE METER 2022-05-02 11:24:00 Caitlyn, Napoleon Hyunna [facility] POCT-GLUCOSE METER 2022-05-02 07:49:00 Caitlyn, [facility] HIGH SENSITIVITY TROPONIN 2022-05-02 05:02:00 Napoleon Virkunn a [facility] HEMOGLOBIN A1C 2022-05-02 05:02:00 Napoleon Virk Hyunna [facility] BASIC METABOLIC PANEL 2022-05-02 05:02:00 CaitlynJames gustafsonyssa Hyunna [facility] CBC (HEMOGRAM ONLY) 2022-05-02 05:02:00 Napoleon Virkbetiemmanuel [facility] HIGH SENSITIVITY TROPONIN 2022-05-01 21:53:00 Napoleon Virkbeti emmanuel [facility] POCT-GLUCOSE METER 2022-05-01 17:19:00 Napoleon Virkbetiemmanuel [facility] CONSENT/REFUSAL FOR 2021-09-19 17:27:07 Doctor Unassigned, [facility] DIAGNOSIS AND TREATMENT [facility] ASSIGNMENT OF BENEFITS 2021-09-19 17:26:48 Doctor Unassigned, [facility] [id number] 2021-01-21 00:00:00 [facility] [id number] 2021-01-21 00:00:00 [facility] [id number] 2021-01-21 00:00:00 [facility] [id number] 2021-01-21 00:00:00 [facility] [id number] 2021-01-21 00:00:00 [facility] [id number] 2021-01-21 00:00:00 [facility] [id number] 2021-01-21 00:00:00 [facility] [id number] 2021-01-21 00:00:00 [facility] [id number] 2021-01-15 00:00:00 [facility] [id number] 2021-01-15 00:00:00 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 Appendectomy Mary Jo Orthopedi c Sports Medicine Carpal Tunnel Surgery Mary Jo Ort hopedic Sports Medicine ENT/Sinus Surgery Mary Jo Orthope dic Sports Medicine Hand Surgery Mary Jo Orthopedi c Sports Medicine Heart Surgery Mary [facility] Orthopedi c Sports Medicine Hernia Repair [facility] Sports Medicine Neck Surgery Mary Jo Orthopedi c Sports Medicine Shoulder Surgery Mary Jo Orthoped ic Sports Medicine Wrist Surgery Mary Jo Orthopedi c Sports Medicine Plan of Care Planned Activity Planned Date Details Comments Source Future Scheduled 2023-04-[address] [facility] 00:00:00 (Season Ended) [code = Medic al Center INFLUENZA VACCINE (Season Ended)] Future Scheduled 2022-08-[address] [facility] 00:00:00 (12+) [code = Medical Center DEPRESSION SCREENING (12+)] Future Scheduled 2022-08-[address] [facility] 00:00:00 (12+) [code = Medical Center DEPRESSION SCREENING (12+)] Future Scheduled 2022-08-[address] [facility] 00:00:00 (12+) [code = Medical Center DEPRESSION SCREENING (12+)] Future Scheduled 2022-04-27 INFLUENZA VACCINE (#1) [facility]00 [code = INFLUENZA Medical Ce nter VACCINE (#1)] Future Scheduled 2022-04-27 INFLUENZA VACCINE (#1) [facility] 00:00:00 [code = INFLUENZA Medical Ce nter VACCINE (#1)] Future Scheduled 2021-09-[address] [facility] 00:[facility]:00 (procedure) [code = [facility] [id number]] Future Scheduled 2021-09-[address] [facility] 00:00:00 (procedure) [code = [facility] [id number]] Future Scheduled 2021-09-[address] [facility] 00:00:00 (procedure) [code = [facility] 39173002] Future Scheduled 2021-09-[address] [facility] 00:00:00 (procedure) [code = [facility] [id number]] Future Scheduled 2021-04-27 INFLUENZA VACCINE (#1) [facility] 00:00:00 [code = INFLUENZA Medical Ce nter VACCINE (#1)] Future Scheduled 2020-08-[address] [facility] 00:00:00 (12+) [code = Medical Center DEPRESSION SCREENING (12+)] Future Scheduled 2009 SHINGLES VACCINES ([address] [facility] 00:00:00 of 2) [code = SHINGLES Medic al Center VACCINES (1 of 2)] Future Scheduled 2009 SHINGLES VACCINES ([address] [facility] 00:00:00 of 2) [code = SHINGLES Medic al Center VACCINES (1 of 2)] Future Scheduled 2009 SHINGLES VACCINES ([address] [facility] 00:00:00 of 2) [code = SHINGLES Medic al Center VACCINES (1 of 2)] Future Scheduled 2009 SHINGLES VACCINES ([address] [facility] 00:00:00 of 2) [code = SHINGLES Medic al Center VACCINES (1 of 2)] Future Scheduled 1978 DTAP/TDAP/TD [facility]ACCINES [facility] 00:00:00 (1 - Tdap) [code = Medical C enter DTAP/TDAP/TD VACCINES (1 - Tdap)] Future Scheduled 1978 DTAP/TDAP/TD [facility]ACCINES [facility] 00:00:00 (1 - Tdap) [code = Medical C enter DTAP/TDAP/TD VACCINES (1 - Tdap)] Future Scheduled 1978 DTAP/TDAP/TD [facility]ACCINES [facility] 00:00:00 (1 - Tdap) [code = Medical C enter DTAP/TDAP/TD VACCINES (1 - Tdap)] Future Scheduled 1978 DTAP/TDAP/TD [facility]ACCINES [facility] 00:00:00 (1 - Tdap) [code = Medical C enter DTAP/TDAP/TD VACCINES (1 - Tdap)] Future Scheduled [address] [facility] 00:00:00 Counseling and Medical Cente r Screening (12+) [code = Tobacco Cessation Counseling and Screening (12+)] Future Scheduled [address] [facility] 00:00:00 Counseling and Medical Cente r Screening (12+) [code = Tobacco Cessation Counseling and Screening (12+)] Future Scheduled [address] [facility] 00:00:00 Counseling and Medical Cente r Screening (12+) [code = Tobacco Cessation Counseling and Screening (12+)] Future Scheduled 1971 COVID-19 VACCINE (1) [facility] 00:00:00 [code = COVID-[address] VACCINE (1)] Future Scheduled 1960-03-01 COVID-19 VACCINE (#1) [facility] 00:00:00 [code = COVID-[address] VACCINE (#1)] Future Scheduled 1960-03-01 COVID-19 VACCINE (#1) [facility] 00:00:00 [code = COVID-[address] VACCINE (#1)] Future Scheduled 1960-03-01 COVID-19 VACCINE (#1) [facility] 00:00:00 [code = COVID-[address] VACCINE (#1)] Future Scheduled [address] [facility] 00:00:00 (combo) [code = CT Medical C enter Colonography (combo)] Future Scheduled [address] [facility] 00:[facility]:00 malignant neoplasm of Medica l Center colon (procedure) [code = 401657005] Future Scheduled [address] [facility] 00:00:00 malignant neoplasm of Medica l Center colon (procedure) [code = 893449960] Future Scheduled [address] [facility] 00:00:00 malignant neoplasm of Medica l Center colon (procedure) [code = 632009231] Future Scheduled [address] [facility] 00:00:00 malignant neoplasm of Medica l Center colon (procedure) [code = 641524821] Future Scheduled 1959 Sigmoidoscopy [code [facility]oscopy] Medical Cente r Future Scheduled [address] [facility] 00:00:00 malignant neoplasm of Medica l Center colon (procedure) [code = 869599033] Future Scheduled [address] [facility] 00:00:00 malignant neoplasm of Medica l Center colon (procedure) [code = 889729866] Future Scheduled 1959 Sigmoidoscopy [facility]code [facility] S[facility]oscopy] Medical Cente r Future Scheduled [address] [facility] 00:00:00 malignant neoplasm of Medica l Center colon (procedure) [code = 353939225] Future Scheduled [address] [facility] 00:00:00 (combo) [code = CT Medical C enter Colonography (combo)] Future Scheduled [address] [facility] 00:00:00 malignant neoplasm of Medica l Center colon (procedure) [code = 776909295] Future Scheduled [address] [facility] 00:00:00 malignant neoplasm of Medica l Center colon (procedure) [code = 259254970] Future Scheduled [address] [facility] 00:00:00 malignant neoplasm of Medica l Center colon (procedure) [code = 243922632] Future Scheduled [address] [facility] 00:00:00 malignant neoplasm of Medica l Center colon (procedure) [code = 691600824] Future Scheduled 1959 Sigmoidoscopy [facility]code [facility] S[facility]oidoscopy] Medical Cente r Future Scheduled [address] [facility] 00:00:00 (combo) [code = CT Medical C enter Colonography (combo)] Future Scheduled [address] [facility] 00:00:00 malignant neoplasm of Medica l Center colon (procedure) [code = 018361677] Future Scheduled [address] [facility] 00:00:00 malignant neoplasm of Medica l Center colon (procedure) [code = 467963785] Future Appointment 2023-01-18 Perry Bruno, [address] Babatunde marya Orthopedic 09:00:00 [facility]; , [facility] [address] Future Appointment 2023-01-08 Papito Mendoza 7401 Betsy ea Orthopedic 12:00:00 [facility]; [facility] [address] Encounters Start End Encounter Admission Attending Care Care Encounter Source Date/Time Date/Time Type Type Clinicians Facility Department ID 2022-10-18 Outpatient [facility] [id number] Common 14:21:03 [id number] [facility] 2022-06-29 Inpatient GEETA Clark [id number] [facility] 10:30:[address] are [facility] 2021-06-13 Inpatient HANNAH MarcosWU HCAWU [id number] [facility] 09:14:51 Jewels 60 [facility] 2022-12-21 2022-12-21 Outpatient AO_Mohr_Rob AOSM AOSM [id number] Mary Jo 00:00:00 00:00:00 Yovani [id number] [facility]op e [facility] 2022-12-21 2022-12-21 Outpatient FOG_Samuel_ AOSM AOSM [id number] Mary Jo 00:00:00 00:00:00 Cheko [id number] Ortho pe dic Sports Medicin e 2022-12-21 2022-12-21 Perry S[place] - Ortho [id number] Mary Jo 00:00:00 00:00:00 Lynne Bruno MD: [id number] FOG_Ofc dic [facility] [address] , Ph. [phone] 2022-12-13 2022-12-13 Outpatient FOG_Samuel_ AOSM AOSM [id number] Mary Jo 00:00:00 00:00:00 Cheko [id number] Ortho pe dic Sports Medicin e 2022-12-13 2022-12-13 Outpatient FOG_Samuel_ AOSM AOSM [id number] Mary Jo 00:00:00 00:00:00 Cheko [id number] Ortho pe dic Sports Medicin e 2022-12-13 2022-12-13 Outpatient FOG_Samuel_ AOSM AOSM [id number] Mary Jo 00:00:00 00:00:00 Cheko [id number] Ortho pe dic Sports Medicin e 2022-12-13 2022-12-13 Perry [place]AL [place] - Ortho [id number] Mary Jo 00:00:00 00:00:00 Lynne Bruno MD: [id number] FOG_Telemed dic [facility] [place] [address] , Ph. 2022-11-16 2022-11-16 Perry Carranza AOSM [place] - Ortho [id number] Mary Jo 00:00:00 00:00:00 Lynne Bruno MD: [id number] FOG_Ofc dic [facility] Spo [facility], [place] [address] , Ph. [phone] 2022-11-12 2022-11-12 Outpatient FOG_Samuel_ AOSM AOSM [id number] Mary Jo 00:00:00 00:00:00 Cheko [id number] Ortho pe dic Sports Medicin e 2022-11-12 2022-11-12 Outpatient FOG_Samuel_ AOSM AOSM [id number] Mary Jo 00:00:00 00:00:00 Cheko [id number] Ortho pe dic Sports Medicin e 2022-11-12 2022-11-12 Outpatient AO_Mohr_Rob AOSM AOSM [id number] Mary Jo 00:00:00 00:00:00 Yovani [id number] Orthop e dic Sports Medicin e 2022-11-12 2022-11-12 Outpatient AO_Mohr_Rob AOSM AOSM [id number] Mary Jo 00:00:00 00:00:00 ertTERESA [id number] Orthop e dic Sports Medicin e 2022-11-12 2022-11-12 Outpatient AO_Mohr_Rob AOSM AOSM [id number] Mary Jo 00:00:00 00:00:00 Yovani [id number] Orthop e dic Sports Medicin e 2022-11-08 2022-11-08 Outpatient FOG_Samuel_ AOSM AOSM [id number] Mary Jo 00:00:00 00:00:00 Cheko [id number] Ortho pe dic Sports Medicin e 2022-11-08 2022-11-08 Outpatient FOG_Samuel_ AOSM AOSM [id number] Mary Jo 00:00:00 00:00:00 Cheko [id number] Ortho pe dic Sports Medicin e 2022-11-08 2022-11-08 Outpatient AO_Mohr_Rob AOSM AOSM [id number] Mary Jo 00:00:00 00:00:00 Yovani [id number] Orthop e dic Sports Medicin e 2022-10-31 2022-11-07 Inpatient HANNAH JacobsTO SURG [id number] [facility] 06:27:00 12:02:00 [facility] 2022-11-03 2022-11-03 Aramis AOSM [place] - Ortho [id number] Mary Jo 00:00:00 00:00:00 Lynne Pratt Or dillon CO: 2525 FOG_Ofc dic [facility] Medic in [address], [place] [address] , Ph. [phone] 2022-11-01 2022-11-01 Outpatient FOG_Damion_ AO AO [id number] Mary Jo 00:00:00 00:00:00 Cheko [id number] Ortho pe dic Sports Medicin e 2022-11-01 2022-11-01 Outpatient AO_Mohr_Rob AO AO [id number] Mary Jo 00:00:00 00:00:00 Yovani [id number] Orthop e dic Sports Medicin e 2022-11-01 2022-11-01 Perry Carranza AO [place] - Ortho [id number] Mary Jo 00:00:00 00:00:00 Lynne Bruno MD: 7401 FOG_Surgery dic [facility] [place] [address] , Ph. [phone] 2022-10-31 2022-10-31 Perry Carranza [facility] [place] - Ortho [id number] Mary Jo 00:00:00 00:00:00 Lynne Bruno MD: 7401 FOG_Surgery dic [facility] [place] [address] , Ph. [phone] 2022-10-12 2022-10-12 Perry Carranza [facility] [place] - Ortho [id number] Mary Jo 00:00:00 00:00:00 Lynne Bruno MD: 7401 FOG_Telemed dic [facility] [address] , Ph. 2022-10-05 2022-10-05 Outpatient ELIN Jacobs LABO [id number] [facility] 16:45:00 16:45:00 Perry Palacio [facility] 2022-10-05 2022-10-05 Out[facility] [id number] [facility] 13:03:00 13:03:00 Perry Wendie [facility] 2022-10-05 2022-10-05 Outpatient FOG_Samuel_ AOSM AOSM [id number] Mary Jo 00:00:00 00:00:00 Cheko [id number] Ortho pe dic Sports Medicin e 2022-10-05 2022-10-05 Outpatient FOG_Samuel_ AOSM AOSM [id number] Mary Jo 00:00:00 00:00:00 Cheko [id number] Ortho pe dic Sports Medicin e 2022-10-05 2022-10-05 Wicho [place] - Ortho [id number] Mary Jo 00:00:00 00:00:00 Lynne Frazier MD: 7401 FOG_Ofc dic [facility] [place] [address] , Ph. [phone] 2022-10-03 2022-10-03 Outpatient FOG_Samuel_ AOSM AOSM [id number] Mary Jo 00:00:00 00:00:00 Cheko [id number] Ortho pe dic Sports Medicin e 2022-10-03 2022-10-03 Outpatient FOG_Samuel_ AOSM AOSM [id number] Mary Jo 00:00:00 00:00:00 Cheko [id number] Ortho pe dic Sports Medicin e 2022-09-29 2022-09-29 Outpatient FOG_Samuel_ AOSM AOSM [id number] Mary Jo 00:00:00 00:00:00 Cheko [id number] Ortho pe dic Sports Medicin e 2022-09-29 2022-09-29 Perry [place] - Ortho [id number] Mary Oj 00:00:00 00:00:00 Lynne Bruno MD: 520 FOG_Ofc dic [place] [facility] [address] , Ph. [phone] 2022-09-28 2022-09-28 Outpatient FOG_Samuel_ AOSM AOSM [id number] Mary Jo 00:00:00 00:00:00 Cheko [id number] Ortho pe dic Sports Medicin e 2022-09-27 2022-09-27 Outpatient FOG_Samuel_ AOSM AOSM [id number] Mary Jo 00:00:00 00:00:00 Cheko [id number] Ortho pe dic Sports Medicin e 2022-09-27 2022-09-27 Outpatient AO_Mohr_Rob AOSM AOSM [id number] Mary Jo 00:00:00 00:00:00 Yovani [id number] Orthop e dic Sports Medicin e 2022-09-27 2022-09-27 Outpatient AO_Mohr_Rob AOSM AOSM [id number] Mary Jo 00:00:00 00:00:00 Yovani [id number] Orthop e dic Sports Medicin e 2022-09-27 2022-09-27 Outpatient AO_Mohr_Rob AOSM AOSM [id number] Mary Jo 00:00:00 00:00:00 Yovani [id number] Orthop e dic Sports Medicin e 2022-09-27 2022-09-27 Outpatient AO_Mohr_Rob AOSM AOSM [id number] Mary Jo 00:00:00 00:00:00 Yovani [id number] Orthop e dic Sports Medicin e 2022-09-26 2022-09-26 Outpatient FOG_Samuel_ AOSM AOSM [id number] Mary Jo 00:00:00 00:00:00 Cheko [id number] Ortho pe dic Sports Medicin e 2022-07-28 2022-07-28 Ambulatory MHIE MNA [id number] Memoria 17:15:00 17:15:00 Pre-Reg Neurology 13 l Traci Mccrary 2022-07-28 2022-07-28 Ambulatory MHIE MNA [id number] Memoria 17:15:00 17:15:00 Pre-Reg Neurology 13 l Traci Mccrary 2022-07-28 2022-07-28 Outpatient MHIE MHIE [id number] Memoria 11:15:00 11:15:00 13 l Hooper 2022-07-28 2022-07-28 Outpatient CJ Dominguez [facility] [id number] 11:15:00 11:15:00 Hank Middleton 2022-07-05 2022-07-05 Outpatient R MAURA [facility] [id number] Univers 10:00:00 10:00:00 TAMANNA ity of [facility] 2022-06-21 2022-06-21 Ancillary Sondra Delgado [facility] 1.2.8 [id number] Univers 08:00:00 08:00:00 Visit Efraín Wing Uriah CHACKO 350.1.13.10 ity [facility] 4.2.7.2.686 [facility] [id number] [address] 2022-06-20 2022-06-20 Outpatient R RADIOLOGY [facility] [id number] Univers 10:09:37 23:59:00 ity of [facility] 2022-06-20 2022-06-20 Hospital Radiology [facility] [id number] Univers 09:00:00 23:59:00 Encounter GINNA 350.1.13.10 ity [facility] 4.2.7.2.686 [facility] [id number] [facility] [address] 2022-06-21 2022-06-20 Outpatient R WING [facility] [id number] Univers 08:00:00 14:09:52 EFRAÍN ity [facility] 2022-06-20 2022-06-20 Orders Doctor CASTREJON [id number] Univers 00:00:00 00:00:00 Only Unassigned, FRANCES 350.1.13.10 ity of [facility] 4.2.7.2.686 Daryl [id number] [facility] [address] 2022-06-16 2022-06-16 Outpatient R SCOTT BARBOSA [facility] U TMB [id number] Univers 09:30:00 09:30:00 SCOTT BARBOSA itprudence [facility] 2022-06-15 2022-06-16 Outpatient nullFlavo MNA [id number] Memoria 19:30:00 04:59:59 r Neurology 12 l Traci Mccrary 2022-06-15 2022-06-16 Outpatient nullFlavo MNA [id number] Memoria 19:30:00 04:59:59 r Neurology 12 l Traci Mccrary 2022-06-15 2022-06-15 Outpatient Angelica, MHMISCHER MHMISCHER [id number] 14:30:00 23:59:59 Hank Jerry Middleton 2022-06-15 2022-06-15 Outpatient [id number] 14:30:00 12 l Hooper 2022-06-14 2022-06-14 [facility] [id number] Univers 10:42:24 23:59:00 Encounter London lucas 350.1.13.10 ity [facility] 4.2.7.2.686 [facility] [id number] [facility] [address] 2022-06-14 2022-06-14 Outpatient R [facility] [id number] Univers 10:40:12 10:41:00 LONDON Lucas o f [facility] 2022-06-09 2022-06-09 Orders Doctor LUCÍA [id number] [id number] Univers 00:00:00 00:00:00 Only Unassigned, FRANCES 350.1.13.10 ity of [facility] 4.2.7.2.686 [facility] [id number] [facility] [address] 2022-06-05 2022-06-05 Outpatient FOG_Bennett AO AO [id number] Mary Jo 00:00:00 00:00:00 _Petra [id number] Orth ope dic Sports Medicin e 2022-06-05 2022-06-05 Johnny AO [place] - Ortho [id number] Mary Jo 00:00:00 00:00:00 Fadi Alexander - Nithin Jain MD: AO_Ofc dic 130[address] [facility] [facility] [place] [facility] [place], e [facility] [address], [place] [address] , Ph. 2022-05-15 2022-05-15 Outpatient AO_Mohr_[place] [id number] Mary Jo 00:00:00 00:00:00 Yovani [id number] Orthop e dic Sports Medicin e 2022-05-15 2022-05-15 Johnny AOSM [place] - Ortho [id number] Mary Jo 00:00:00 00:00:00 Fadi Alexander - Nithin Jain MD: AO_Ofc dic [id number] [facility] [facility] [place] [facility] [place], e [address], [place] [address] , Ph. 2022-05-11 2022-05-11 Outpatient FOG_Bennett [place] [id number] Mary Jo 00:00:00 00:00:00 _Petra [id number] Orth ope dic Sports Medicin e 2022-05-10 2022-05-10 Ambulatory nullFlavo MNA [id number] Memoria 16:30:00 16:30:00 Pre-Reg r Neurology 11 l Traci Mccrary 2022-05-10 2022-05-10 Ambulatory nullFlavo MNA [id number] Memoria 16:30:00 16:30:00 Pre-Reg r Neurology 11 l Buchanansteph Bentleyann 2022-05-10 2022-05-10 Outpatient SONNY DominguezCTJAY [facility] [id number] 11:30:00 11:30:00 Hank Middleton 2022-05-01 2022-05-04 Inpatient ER [facility] Neurology [id number] [facility] 16:07:00 14:51:00 [facility] 2022-05-01 2022-05-04 [facility] ER [facility], [facility] [id number] 16:07:00 14:51:[address] [facility] 2022-05-01 2022-05-04 [facility], [facility] [id number] 16:07:00 14:51:[address] [facility] 2022-05-01 2022-05-[address] [facility] [id number] [facility] 00:[facility]:00 [facility] 2022-05-01 2022-05-[address] [facility] [id number] [facility] 00:[facility] 00:00:00 [facility] 2022-04-28 2022-04-28 Outpatient FOG_Bennett AOSM AOSM [id number] [place] Jo 00:00:00 00:00:00 _Petra [id number] [facility] 2022-04-27 2022-04-27 Outpatient AO_Mohr_Rob AOSM AOSM [id number] [place] Jo 00:00:00 00:00:00 Yovani [id number] [facility] 2022-04-26 2022-04-26 Outpatient FOG_Bennett AOSM AOSM [id number] Mary Jo 00:00:00 00:00:00 _Petra [id number] [facility] 2022-04-24 2022-04-24 Outpatient FOG_Bennett AOSM AOSM [id number] Mary Jo 00:00:00 00:00:00 _Petra [id number] [facility] 2022-04-11 2022-04-11 Outpatient MHIE MHIE [id number] [facility]oria 11:00:00 11:00:00 11 uriah Mccrary 2022-02-17 2022-02-18 Outpatient nullFlavo MNA [id number] [facility] 16:45:00 04:59:59 r Neurology 10 l Traci Mccrary 2022-02-17 2022-02-18 Outpatient nullFlavo MNA [id number] Memoria 16:45:00 04:59:59 r Neurology 10 uriah Mccrary 2022-02-17 2022-02-17 Outpatient CJ DominguezSCHHELEN [id number] 11:45:00 23:59:59 Hankhumza Middleton 2022-02-17 2022-02-17 Outpatient MHIE MHIE [id number] Memoria 11:45:00 11:45:00 10 uriah Mccrary 2022-01-242022-01-25 Outpatient nullFlavo MNA [id number] Memoria 13:15:00 04:59:59 r Neurology 09 l Traci Mccrary 2022-01-24 2022-01-25 Outpatient nullFlavo MNA [id number] Memoria 13:15:00 04:59:59 r Neurology 09 l Traci Mccrary 2022-01-24 2022-01-24 Outpatient Angelcia [facility] [id number] 08:15:00 23:59:59 Hank 09 Kane 2022-01-24 2022-01-24 Outpatient MHIE MHIE [id number] Memoria 08:15:00 08:15:00 09 uriah Mccrary 2022-01-12 2022-01-13 Outpatient nullFlavo MNA [id number] Memoria 14:45:00 04:59:59 r Neurology 08 l Traci Bentleyann 2022-01-12 2022-01-13 Outpatient nullFlavo MNA [id number] Memoria 14:45:00 04:59:59 r Neurology 08 l Traci Mccrary 2022-01-12 2022-01-12 Outpatient Angelica [facility] [id number] 09:45:00 23:59:59 Hank 08 Kane 2022-01-12 2022-01-12 Outpatient MHIE MHIE [id number] Memoria 09:45:00 09:45:00 08 uriah Bentley 2021-12-15 2021-12-16 Outpatient nullFlavo MNA [id number] Memoria 14:00:00 04:59:59 r Neurology 07 l Traci Bentleyann 2021-12-15 2021-12-16 Outpatient nullFlavo MNA [id number] Memoria 14:00:00 04:59:59 r Neurology 07 l Traci Bentleyann 2021-12-15 2021-12-15 [facility] [id number] 09:00:00 23:59:59 Hank 07 Kane 2021-12-15 2021-12-15 Outpatient MHIE MHIE [id number] Memoria 09:00:00 09:00:00 07 uriah 2021-12-12 2021-12-12 [facility] [id number] Univers 00:00:00 00:00:00 Silvia HEALTH 350.1.13.10 it y of [place] 4.2.7.2.686 Daryl as ANNIKA?BLEA [id number] [address] MEDICAL OFFICE [facility] 2021-10-11 2021-10-11 Meaghan Daley [facility] 1.2.840.114 [id number] Univers 00:00:00 00:00:00 Silvia HEALTH 350.1.13.10 it y of [place] 4.2.7.2.686 Daryl as ANNIKA?BLEA [id number] [address] OFFICE [facility] 2021-10-11 2021-10-11 [facility] 1.2.840.114 [id number] Univers 00:00:00 00:00:00 Silvia HEALTH 350.1.13.10 it y of [place] 4.2.7.2.686 Daryl as ANNIKA?BLEA [id number] [address] OFFICE [facility] 2021-09-20 2021-09-20 Letter LUCÍA Hearn 1.2.840.114 [id number] Univers 00:00:00 00:00:00 (Out) Zenaida DANIELS 350.1.13.10 it y of [facility] 4.2.7.2.686 Daryl as [id number] [address] 2021-09-19 2021-09-19 Outpatient R EDI [facility] [id number] Univers 12:15:00 12:15:00 SILVIA shine [facility] 2021-09-19 2021-09-19 [facility] [id number] Univers 11:20:00 11:58:04 SILVIA shine [facility] 2021-09-19 2021-09-19 Kayla Daley [facility] 1.2.840.114 [id number] Univers 11:20:00 11:58:04 [facility] 350.1.13.10 [facility] 4.2.7.2.686 Daryl as ANNIKA?BLEA [phone] [address] OFFICE BUILDING 2021-09-19 2021-09-19 Orders Doctor LUCÍA 1.2.840.114 [id number] Univers 00:00:00 00:00:00 Only Unassigned, FRANCES 350.1.13.10 ity of [place] [facility] 4.2.7.2.686 Daryl as [id number] [address] 2021-06-21 2021-06-21 Ambulatory nullFlavo MNA [id number] Memoria 20:45:00 20:45:00 Pre-Reg r Neurology 06 l Traci Mccrary 2021-06-21 2021-06-21 Ambulatory nullFlavo MNA [id number] Memoria 20:45:00 20:45:00 Pre-Reg r Neurology 06 l Traci Mccrary 2021-06-21 2021-06-21 Outpatient MHIE MHIE [id number] Memoria 15:45:00 15:45:00 06 uriah Mccrary 2021-06-21 2021-06-21 Outpatient CJ Dominguez MHMISCHER [id number] 15:45:00 15:45:00 Hank Naveed Middleton 2021-03-08 2021-03-08 Outpatient R TOBY, [facility] [id number] [facility] 12:30:00 12:30:00 DION shine [facility] 2021-01-31 2021-02-02 Inpatient EM JACQUE GuU MED [id number] [facility] 15:28:00 14:07:00 Jakub 85 [facility] 2021-01-31 2021-02-02 Inpatient EM JACQUE GuU MED [id number] [facility] 15:28:00 14:07:00 Jakub 85 [facility] 2021-01-14 2021-01-29 Inpatient UR HANNAH MarcosWU INTE [id number] [facility] 10:28:00 12:52:00 Jewels 60 [facility] 2021-02-14 2021-01-06 Inpatient PHILOEMNA OliviaTO [id number] [facility] 07:30:00 10:31:57 Momo [facility] 2020-12-28 2020-12-30 Outside nullFlavo MNA [id number] Memoria 14:19:23 04:59:59 Medical r Neurology 00 l Records Traci Mccrary 2020-12-28 2020-12-30 Outside nullFlavo MNA [id number] [facility]oria 14:19:23 04:59:59 Medical r Neurology 00 l Records Traci Mccrary 2020-12-28 2020-12-29 [id number] 09:19:23 23:59:59 00 2020-12-17 2020-12-18 Outpatient nullFlavo MNA [id number] Memoria 18:00:00 04:59:59 r Neurology 05 l Traci Mccrary 2020-12-17 2020-12-18 Outpatient nullFlavo MNA [id number] Memoria 18:00:00 04:59:59 r Neurology 05 l Traci Mccrary 2020-12-17 2020-12-17 Out[facility] [id number] 13:00:00 23:59:59 Hank Hakeem Kane 2020-12-17 2020-12-17 Outpatient MHIE MHIE [id number] Memoria 13:00:00 13:00:00 05 l Hooper 2020-08-25 2020-08-25 Outpatient [facility] [address] [place] 06:58:00 06:58:00 _L [facility] 2020-07-28 2020-07-28 Ambulatory nullFlavo MNA [id number] Memoria 15:00:00 15:00:00 Pre-Reg r Neurology 04 l Traci 2020-07-28 2020-07-28 Ambulatory nullFlavo MNA [id number] Memoria 15:00:00 15:00:00 Pre-Reg r Neurology 04 l Buchanan Hooper 2020-07-28 2020-07-28 Outpatient MHIE MHIE [id number] Memoria 09:00:00 09:00:00 04 uriah 2020-07-28 2020-07-28 [id number] 09:00:00 09:00:00 Hank Fátima Kane 2019-12-18 2019-12-18 Ambulatory nullFlavo MNA [id number] Memoria 20:45:00 20:45:00 Pre-Reg r Neurology 03 l Traci Mccrary 2019-12-18 2019-12-18 Ambulatory nullFlavo MNA [id number] Memoria 20:45:00 20:45:00 Pre-Reg r Neurology 03 l Traci Mccrary 2019-12-18 2019-12-18 Outpatient MHIE MHIE [id number] Memoria 15:45:00 15:45:00 03 uriah Bentley 2019-12-18 2019-12-18 [facility] [id number] 15:45:00 15:45:00 Hank 03 Kane 2019-10-28 2019-10-28 Ambulatory nullFlavo MNA [id number] Memoria 22:00:00 22:00:00 Pre-Reg r Neurology 02 l Traci Bentleyann 2019-10-28 2019-10-28 Ambulatory nullFlavo MNA [id number] Memoria 22:00:00 22:00:00 Pre-Reg r Neurology 02 l Buchanan 2019-10-28 2019-10-28 Outpatient MHIE MHIE [id number] Memoria 16:00:00 16:00:00 02 uriah Hooper 2019-10-28 2019-10-28 Outpatient [facility] [id number] 16:00:00 16:00:00 Hank 02 Kane 2019-05-27 2019-05-28 Outpatient nullFlavo MNA [id number] Memoria 21:00:00 04:59:59 r Neurology 01 l Buchanan 2019-05-27 2019-05-28 Outpatient nullFlavo MNA [id number] Memoria 21:00:00 04:59:59 r Neurology 01 l Buchanan 2019-05-27 2019-05-27 Outpatient [facility] [id number] 16:00:00 23:59:59 Hank 01 Kane 2019-05-27 2019-05-27 Outpatient MHIE MHIE [id number] Memoria 16:00:00 16:00:00 01 uriah Mccrary 2019-04-24 2019-04-24 Outpatient MHIE MHIE [id number] Memoria 15:45:00 15:45:00 00 uriah Hooper 2019-04-24 2019-04-24 Outpatient [facility] [id number] Memoria 15:45:00 15:45:00 00 uriah 2019-03-06 2019-04-05 OP Therapy nullFlavo [facility] [id number] Memoria 18:30:00 04:59:00 Patients r Evan 00 l Jeremiah Bentleyann 2019-03-06 2019-04-05 OP Therapy nullFlavo [facility] [id number] Memoria 18:30:00 04:59:00 Patients r Evan 00 l Jeremiah Hooper 2019-03-06 2019-04-04 Outpatient Betty, 2.16.840. 2.16.840.1. 4 [id number] 13:30:00 23:59:00 Eliu Moran [id number] 5.55 2011-09-30 2011-10-01 OU nullFlavo [facility] [id number] Memoria 23:43:00 11:55:00 r [facility] 01 [facility] 2011-09-30 2011-10-01 OU nullFlavo [facility] [id number] Memoria 23:43:00 11:55:00 [facility] 2011-09-21 2011-09-23 Inpatient nullFlavo [facility] [id number] Memoria 05:51:00 12:20:[address] 2011-09-21 2011-09-23 Inpatient nullFlavo [facility] [id number] Memoria 05:51:00 12:20:[address] Results Test Description Test Time Test Comments Results Result Comments Source GLUBED 2022-11-07 11:26:00 Test Item Value Reference Range Interpretation Comme nts GLUBED (test code = GLUBED) 218 mg/dL 60-125 H [id number] 10:59:00 Test Item Value Reference Range Interpretation Comments glubed (test code = glubed) 218 mg/dL 60-125 H performing lab: (test code = performing lab:) [facility] [id number] 10:59:00 Test Item Value Reference Range Interpretation Comments glubed (test code = glubed) 218 mg/dL 60-125 H performing lab: (test code = performing lab:) [facility] 10:59:00 Test Item Value Reference Range Interpretation Comments glubed (test code = glubed) 218 mg/dL 60-125 H performing lab: (test code = performing lab:) [facility] 10:59:00 Test Item Value Reference Range Interpretation Comments glubed (test code = glubed) 218 mg/dL 60-125 H performing lab: (test code = performing lab[id number] 09:23:00 Test Item Value Reference Range Interpretation Comments UA COLOR (test code = YELLOW YELLOW COLU) UA APPEARANCE (test CLEAR CLEAR code = APPU) UA GLUCOSE DIPSTICK NEGATIVE NEGATIVE (test code = DGLUU) UA BILIRUBIN DIPSTICK NEGATIVE NEGATIVE (test code = BILU) UA KETONE DIPSTICK NEGATIVE mg/dL NEGATIVE (test code = KETU) UA SPECIFIC GRAVITY 1.015 1.003-1.035 (test code = SGU) UA BLOOD DIPSTICK NEGATIVE NEGATIVE (test code = LUCY) UA PH DIPSTICK (test 6.5 See_Comment [Autom ated code = ANDER) message] The system which generated this result transmit quoc reference range : 6.5. The refere nce range was not u sed to interpret th is result as normal/abnormal . UA PROTEIN DIPSTICK NEGATIVE mg/dL NEG (test code = PROU) UA UROBILINIOGEN 0.2 mg/dL NORM DIPSTICK (test code = URO) UA NITRITE DIPSTICK NEGATIVE NEG (test code = NIMISHA) UA LEUKOCYTE ESTERASE NEGATIVE NEGATIVE DIPSTICK (test code = LEUU) UA WBC (test code = RARE /HPF 0-2 WBCU) UA RBC (test code = NONE /HPF 0-2 RBCU) UA EPITHELIAL CELLS RARE /HPF 0-2 (test code = EPIU) UA BACTERIA (test FEW /HPF NONE code = BACU) urinalysis [id number] 08:10:00 Test Item Value Reference Range Interpretation Comments UA color (test code = yellow yellow UA color) UA appearance (test clear clear code = UA appearance) UA glucose dipstick negative negative (test code = UA glucose dipstick) UA bilirubin dipstick negative negative (test code = UA bilirubin dipstick) UA ketone dipstick negative negative (test code = UA ketone dipstick) UA specific gravity 1.015 1.003-1.035 (test code = UA specific gravity) UA blood dipstick (test negative negative code = UA blood dipstick) UA pH dipstick (test 6.5 See_Comment [Autom ated message] code = UA pH dipstick) The s ystem which generated this result transmitted ref erence range: 6.5. The reference range was not used to int erpret this result as normal/abnormal . UA protein dipstick negative neg (test code = UA protein dipstick) UA urobiliniogen 0.2 mg/dL norm dipstick (test code = UA urobiliniogen dipstick) UA nitrite dipstick negative neg (test code = UA nitrite dipstick) UA leukocyte esterase negative negative dipstick (test code = UA leukocyte esterase dipstick) UA WBC (test code = UA rare 0-2 WBC) UA RBC (test code = UA none 0-2 RBC) UA epithelial cells rare 0-2 (test code = UA epithelial cells) UA bacteria (test code few none = UA bacteria) performing lab: (test code = performing lab:) [facility] [id number] 08:10:00 Test Item Value Reference Range Interpretation Comments UA color (test code = yellow yellow UA color) UA appearance (test clear clear code = UA appearance) UA glucose dipstick negative negative (test code = UA glucose dipstick) UA bilirubin dipstick negative negative (test code = UA bilirubin dipstick) UA ketone dipstick negative negative (test code = UA ketone dipstick) UA specific gravity 1.015 1.003-1.035 (test code = UA specific gravity) UA blood dipstick (test negative negative code = UA blood dipstick) UA pH dipstick (test 6.5 See_Comment [Autom ated message] code = UA pH dipstick) The s ystem which generated this result transmitted ref erence range: 6.5. The reference range was not used to int erpret this result as normal/abnormal . UA protein dipstick negative neg (test code = UA protein dipstick) UA urobiliniogen 0.2 mg/dL norm dipstick (test code = UA urobiliniogen dipstick) UA nitrite dipstick negative neg (test code = UA nitrite dipstick) UA leukocyte esterase negative negative dipstick (test code = UA leukocyte esterase dipstick) UA WBC (test code = UA rare 0-2 WBC) UA RBC (test code = UA none 0-2 RBC) UA epithelial cells rare 0-2 (test code = UA epithelial cells) UA bacteria (test code few none = UA bacteria) performing lab: (test code = performing lab:) [facility] [id number] 08:10:00 Test Item Value Reference Range Interpretation Comments UA color (test code = yellow yellow UA color) UA appearance (test clear clear code = UA appearance) UA glucose dipstick negative negative (test code = UA glucose dipstick) UA bilirubin dipstick negative negative (test code = UA bilirubin dipstick) UA ketone dipstick negative negative (test code = UA ketone dipstick) UA specific gravity 1.015 1.003-1.035 (test code = UA specific gravity) UA blood dipstick (test negative negative code = UA blood dipstick) UA pH dipstick (test 6.5 See_Comment [Autom ated message] code = UA pH dipstick) The [employer] which generated this result transmitted ref erence range: 6.5. The reference range was not used to int erpret this result as normal/abnormal . UA protein dipstick negative neg (test code = UA protein dipstick) UA urobiliniogen 0.2 mg/dL norm dipstick (test code = UA urobiliniogen dipstick) UA nitrite dipstick negative neg (test code = UA nitrite dipstick) UA leukocyte esterase negative negative dipstick (test code = UA leukocyte esterase dipstick) UA WBC (test code = UA rare 0-2 WBC) UA RBC (test code = UA none 0-2 RBC) UA epithelial cells rare 0-2 (test code = UA epithelial cells) UA bacteria (test code few none = UA bacteria) performing lab: (test code = performing lab:) [facility] [id number] 08:10:00 Test Item Value Reference Range Interpretation Comments UA color (test code = yellow yellow UA color) UA appearance (test clear clear code = UA appearance) UA glucose dipstick negative negative (test code = UA glucose dipstick) UA bilirubin dipstick negative negative (test code = UA bilirubin dipstick) UA ketone dipstick negative negative (test code = UA ketone dipstick) UA specific gravity 1.015 1.003-1.035 (test code = UA specific gravity) UA blood dipstick (test negative negative code = UA blood dipstick) UA pH dipstick (test 6.5 See_Comment [Autom ated message] code = UA pH dipstick) The s ystem which generated this result transmitted ref erence range: 6.5. The reference range was not used to int erpret this result as normal/abnormal . UA protein dipstick negative neg (test code = UA protein dipstick) UA urobiliniogen 0.2 mg/dL norm dipstick (test code = UA urobiliniogen dipstick) UA nitrite dipstick negative neg (test code = UA nitrite dipstick) UA leukocyte esterase negative negative dipstick (test code = UA leukocyte esterase dipstick) UA WBC (test code = UA rare 0-2 WBC) UA RBC (test code = UA none 0-2 RBC) UA epithelial cells rare 0-2 (test code = UA epithelial cells) UA bacteria (test code few none = UA bacteria) performing lab: (test code = performing lab:) [facility] Test Item Value Reference Range Interpretation Comments GLUBED (test code = GLUBED) 100 mg/dL 60-125 N [id number] 05:29:00 Test Item Value Reference Range Interpretation Comments glubed (test code = glubed) 100 mg/dL 60-125 performing lab: (test code = performing lab:) [place] [id number] 05:29:00 Test Item Value Reference Range Interpretation Comments glubed (test code = glubed) 100 mg/dL 60-125 performing lab: (test code = performing lab:) [facility] 05:29:00 Test Item Value Reference Range Interpretation Comments glubed (test code = glubed) 100 mg/dL 60-125 performing lab: (test code = performing lab:) [place] [id number] 05:29:00 Test Item Value Reference Range Interpretation Comments glubed (test code = glubed) 100 mg/dL 60-125 performing lab: (test code = performing lab:) [place] [id number] 20:27:00 Test Item Value Reference Range Interpretation Comments GLUBED (test code = GLUBED) 169 mg/dL 60-125 H [id number] 20:10:00 Test Item Value Reference Range Interpretation Comments glubed (test code = glubed) 169 mg/dL 60-125 H performing lab: (test code = performing lab:) [place] [id number] 20:10:00 Test Item Value Reference Range Interpretation Comments glubed (test code = glubed) 169 mg/dL 60-125 H performing lab: (test code = performing lab:) [place] [id number] 20:10:00 Test Item Value Reference Range Interpretation Comments glubed (test code = glubed) 169 mg/dL 60-125 H performing lab: (test code = performing lab:) [place] [id number] 20:10:00 Test Item Value Reference Range Interpretation Comments glubed (test code = glubed) 169 mg/dL 60-125 H performing lab: (test code = performing lab:) [place] [id number] 16:50:00 Test Item Value Reference Range Interpretation Comments GLUBED (test code = GLUBED) 205 mg/dL 60-125 H [id number] 16:33:00 Test Item Value Reference Range Interpretation Comments glubed (test code = glubed) 205 mg/dL 60-125 H performing lab: (test code = performing lab:) [place] [id number] 16:33:00 Test Item Value Reference Range Interpretation Comments glubed (test code = glubed) 205 mg/dL 60-125 H performing lab: (test code = performing lab:) [place] [id number] 16:33:00 Test Item Value Reference Range Interpretation Comments glubed (test code = glubed) 205 mg/dL 60-125 H performing lab: (test code = performing lab:) [place] [id number] 16:33:00 Test Item Value Reference Range Interpretation Comments glubed (test code = glubed) 205 mg/dL 60-125 H performing lab: (test code = performing lab:) [place] [id number] 11:47:00 Test Item Value Reference Range Interpretation Comments GLUBED (test code = GLUBED) 232 mg/dL 60-125 H [id number] 11:11:00 Test Item Value Reference Range Interpretation Comments glubed (test code = glubed) 232 mg/dL 60-125 H performing lab: (test code = performing lab:) [place] [id number] 11:11:00 Test Item Value Reference Range Interpretation Comments glubed (test code = glubed) 232 mg/dL 60-125 H performing lab: (test code = performing lab:) [place] [id number] 11:11:00 Test Item Value Reference Range Interpretation Comments glubed (test code = glubed) 232 mg/dL 60-125 H performing lab: (test code = performing lab:) [place] [id number] 11:11:00 Test Item Value Reference Range Interpretation Comments glubed (test code = glubed) 232 mg/dL 60-125 H performing lab: (test code = performing lab:) [place] [id number] 04:51:00 Test Item Value Reference Range Interpretation Comments GLUBED (test code = GLUBED) 129 mg/dL 60-125 H [id number] 04:35:00 Test Item Value Reference Range Interpretation Comments glubed (test code = glubed) 129 mg/dL 60-125 H performing lab: (test code = performing lab:) [place] [id number] 04:35:00 Test Item Value Reference Range Interpretation Comments glubed (test code = glubed) 129 mg/dL 60-125 H performing lab: (test code = performing lab:) [place] [id number] 04:35:00 Test Item Value Reference Range Interpretation Comments glubed (test code = glubed) 129 mg/dL 60-125 H performing lab: (test code = performing lab:) [place] [id number] 04:35:00 Test Item Value Reference Range Interpretation Comments glubed (test code = glubed) 129 mg/dL 60-125 H performing lab: (test code = performing lab:) [place] [id number] 20:35:00 Test Item Value Reference Range Interpretation Comments GLUBED (test code = GLUBED) 245 mg/dL 60-125 H [id number] 20:16:00 Test Item Value Reference Range Interpretation Comments glubed (test code = glubed) 245 mg/dL 60-125 H performing lab: (test code = performing lab:) [place] [id number] 20:16:00 Test Item Value Reference Range Interpretation Comments glubed (test code = glubed) 245 mg/dL 60-125 H performing lab: (test code = performing lab:) [place] [id number] 20:16:00 Test Item Value Reference Range Interpretation Comments glubed (test code = glubed) 245 mg/dL 60-125 H performing lab: (test code = performing lab:) [place] [id number] 20:16:00 Test Item Value Reference Range Interpretation Comments glubed (test code = glubed) 245 mg/dL 60-125 H performing lab: (test code = performing lab:) [place] [id number] 16:39:00 Test Item Value Reference Range Interpretation Comments GLUBED (test code = GLUBED) 199 mg/dL 60-125 H [id number] 16:25:00 Test Item Value Reference Range Interpretation Comments glubed (test code = glubed) 199 mg/dL 60-125 H performing lab: (test code = performing lab:) [place] [id number] 16:25:00 Test Item Value Reference Range Interpretation Comments glubed (test code = glubed) 199 mg/dL 60-125 H performing lab: (test code = performing lab:) [facility] 16:25[facility]00 Test Item Value Reference Range Interpretation Comments glubed (test code = glubed) 199 mg/dL 60-125 H performing lab: (test code = performing lab:) [facility] 16:25:00 Test Item Value Reference Range Interpretation Comments glubed (test code = glubed) 199 mg/dL 60-125 H performing lab: (test code = performing lab:) [facility]00 Test Item Value Reference Range Interpretation Comments GLUBED (test code = GLUBED) 303 mg/dL 60-125 H [id number] 11:52:00 Test Item Value Reference Range Interpretation Comments glubed (test code = glubed) 303 mg/dL 60-125 H performing lab: (test code = performing lab:) [facility]00 Test Item Value Reference Range Interpretation Comments glubed (test code = glubed) 303 mg/dL 60-125 H performing lab: (test code = performing lab:) [facility] 11:52:00 Test Item Value Reference Range Interpretation Comments glubed (test code = glubed) 303 mg/dL 60-125 H performing lab: (test code = performing lab:) [facility]00 Test Item Value Reference Range Interpretation Comments glubed (test code = glubed) 303 mg/dL 60-125 H performing lab: (test code = performing lab:) [facility] C-SPINE W/O [id number] 11:18:00 [facility] 1960 Sex: M Patient Name: JUSTICE MARS Unit No: [id number] EXAMS: CPT CODE: [id number] CT C-SPINE W/O CONT 76710 DIAGNOSIS: 1. At C1-2 there is no evidence for subluxation or canal stenosis. 2. At C2-3 there is a mild retrolisthesis and the canal is stenotic with an AP diameter of 11 mm. No foraminal narrowing is seen. Facet degeneration is present. 3. At C3-4 the patient is status post discectomy and graft and the canal is stenotic with an AP diameter of 9 mm. Moderate bilateral foraminal narrowing is seen. Posterior screws are noted. 4. At C4-5 the patient is status post discectomy and graft and the canal is stenotic with an AP diameter of 11 mm. Mild right foraminal narrowing is seen without left-sided stenosis. 5. At C5-6 there is a probable pseudarthrosis with marked interspace narrowing. Marked bilateral foraminal narrowing is present in the canal is stenotic with an AP diameter of 10 mm. 6. At C6-7 there is anterior interbody fusion and the canal is mildly stenotic with an AP diameter of 12 mm. There is a fracture of the left C6 inferior articular facet and lamina. There is also a fracture of the leftC7 transverse process. Marked bilateral foraminal narrowing is present. Posterior screws are seen inC7. 7. At C7-T1 there is endplate spur formation and marked right foraminal narrowing with moderate left-sided stenosis. Posterior screws are seen in C7 and T1. The canal is stenotic with an AP diameter of 11 mm. COMMENT: COMPARISON: No prior exams available. Scans were performed from C1 to T1 withoutcontrast and reconstructions were obtained. Postsurgical and spondylitic changes are as noted. Discsare as described. Metal artifact obscures some detail. at 1118 Reported and signed by: Hayden Garcia MD CC: Perry Bruno MD Technologist: MAGDALENO LARA MRI CTDI: DLP: Trnscrpt: 11/05/2022 (1118) [email or web address] [facility] NAME: JUSTICE MARS [address] [facility] PHYS: Perry Wolf MD : 1960 AGE: 62 SEX: M [place], [place] [address] LOC: Y.512 A PHONE #: [phone] EXAM DATE: 11/05/2022 STATUS: ADM IN FAX #: [phone] RAD #: [id number] D/C DT PAGE 1 Signed Report Patient Name: JUSTICE MARS Unit No: [id number] EXAMS: CPT CODE: [id number] CT C-SPINE W/O CONT 27482 (Continued) Orig Print D/T: S: 11/05/2022 (1121) [facility] NAME: JUSTICE MARS [address] [facility] PHYS: Perry Wolf MD : 1960 AGE: 62 SEX: M [place], [place] [address] LOC: Y.512 A PHONE #: [phone] EXAM DATE: 11/05/2022 STATUS: ADM IN FAX #: [phone] #: [id number] D/C DT PAGE 2 Signed ReportGLUBED 2022-11-05 10:30:00 Test Item Value Reference Range Interpretation Comments GLUBED (test code = GLUBED) 169 mg/dL 60-125 H [id number] 10:18:00 Test Item Value Reference Range Interpretation Comments glubed (test code = glubed) 169 mg/dL 60-125 H performing lab: (test code = performing lab:) [facility]:18:00 Test Item Value Reference Range Interpretation Comments glubed (test code = glubed) 169 mg/dL 60-125 H performing lab: (test code = performing lab:) [place] [id number] 10:18:00 Test Item Value Reference Range Interpretation Comments glubed (test code = glubed) 169 mg/dL 60-125 H performing lab: (test code = performing lab:) [place] [id number] 10:18:00 Test Item Value Reference Range Interpretation Comments glubed (test code = glubed) 169 mg/dL 60-125 H performing lab: (test code = performing lab:) [place] [id number] 05:46:00 Test Item Value Reference Range Interpretation Comments GLUBED (test code = GLUBED) 97 mg/dL 60-125 N [id number] 05:34:00 Test Item Value Reference Range Interpretation Comments glubed (test code = glubed) 97 mg/dL 60-125 performing lab: (test code = performing lab:) [place] 31230023-03-12 05:34:00 Test Item Value Reference Range Interpretation Comments glubed (test code = glubed) 97 mg/dL 60-125 performing lab: (test code = performing lab:) [place] 31230023-03-12 05:34:00 Test Item Value Reference Range Interpretation Comments glubed (test code = glubed) 97 mg/dL 60-125 performing lab: (test code = performing lab:) [place] 31230023-03-12 05:34:00 Test Item Value Reference Range Interpretation Comments glubed (test code = glubed) 97 mg/dL 60-125 performing lab: (test code = performing lab:) [place] [id number] 20:28:00 Test Item Value Reference Range Interpretation Comments GLUBED (test code = GLUBED) 215 mg/dL 60-125 H [id number] 20:12:00 Test Item Value Reference Range Interpretation Comments glubed (test code = glubed) 215 mg/dL 60-125 H performing lab: (test code = performing lab:) [place] 31230023-03-11 20:12:00 Test Item Value Reference Range Interpretation Comments glubed (test code = glubed) 215 mg/dL 60-125 H performing lab: (test code = performing lab:) [place] 31230023-03-11 20:12:00 Test Item Value Reference Range Interpretation Comments glubed (test code = glubed) 215 mg/dL 60-125 H performing lab: (test code = performing lab:) [place] 31230023-03-11 20:12:00 Test Item Value Reference Range Interpretation Comments glubed (test code = glubed) 215 mg/dL 60-125 H performing lab: (test code = performing lab:) [place] [id number] 16:52:00 Test Item Value Reference Range Interpretation Comments GLUBED (test code = GLUBED) 262 mg/dL 60-125 H [id number] 16:41:00 Test Item Value Reference Range Interpretation Comments glubed (test code = glubed) 262 mg/dL 60-125 H performing lab: (test code = performing lab:) [place] 31230023-03-11 16:41:00 Test Item Value Reference Range Interpretation Comments glubed (test code = glubed) 262 mg/dL 60-125 H performing lab: (test code = performing lab:) [place] 31230023-03-11 16:41:00 Test Item Value Reference Range Interpretation Comments glubed (test code = glubed) 262 mg/dL 60-125 H performing lab: (test code = performing lab:) [place] 31230023-03-11 16:41:00 Test Item Value Reference Range Interpretation Comments glubed (test code = glubed) 262 mg/dL 60-125 H performing lab: (test code = performing lab:) [place] [id number] 11:45:00 Test Item Value Reference Range Interpretation Comments GLUBED (test code = GLUBED) 252 mg/dL 60-125 H [id number] 11:31:00 Test Item Value Reference Range Interpretation Comments glubed (test code = glubed) 252 mg/dL 60-125 H performing lab: (test code = performing lab:) [place] 31230023-03-11 11:31:00 Test Item Value Reference Range Interpretation Comments glubed (test code = glubed) 252 mg/dL 60-125 H performing lab: (test code = performing lab:) [place] 31230023-03-11 11:31:00 Test Item Value Reference Range Interpretation Comments glubed (test code = glubed) 252 mg/dL 60-125 H performing lab: (test code = performing lab:) [facility]00 Test Item Value Reference Range Interpretation Comments glubed (test code = glubed) 252 mg/dL 60-125 H performing lab: (test code = performing lab:) [place] [id number] 05:52:00 Test Item Value Reference Range Interpretation Comments GLUBED (test code = GLUBED) 186 mg/dL 60-125 H [id number] 05:31:00 Test Item Value Reference Range Interpretation Comments glubed (test code = glubed) 186 mg/dL 60-125 H performing lab: (test code = performing lab:) [place] 31230023-03-11 05:31:00 Test Item Value Reference Range Interpretation Comments glubed (test code = glubed) 186 mg/dL 60-125 H performing lab: (test code = performing lab:) [facility] 05:31:00 Test Item Value Reference Range Interpretation Comments glubed (test code = glubed) 186 mg/dL 60-125 H performing lab: (test code = performing lab:) [place] 31230023-03-11 05:31:00 Test Item Value Reference Range Interpretation Comments glubed (test code = glubed) 186 mg/dL 60-125 H performing lab: (test code = performing lab:) [facility] Test Item Value Reference Range Interpretation Comments GLUBED (test code = GLUBED) 205 mg/dL 60-125 H [id number] 19:51:00 Test Item Value Reference Range Interpretation Comments glubed (test code = glubed) 205 mg/dL 60-125 H performing lab: (test code = performing lab:) [place] 31230023-03-10 19:51:00 Test Item Value Reference Range Interpretation Comments glubed (test code = glubed) 205 mg/dL 60-125 H performing lab: (test code = performing lab:) [place] 31230023-03-10 19:51:00 Test Item Value Reference Range Interpretation Comments glubed (test code = glubed) 205 mg/dL 60-125 H performing lab: (test code = performing lab:) [place] 31230023-03-10 19:51:00 Test Item Value Reference Range Interpretation Comments glubed (test code = glubed) 205 mg/dL 60-125 H performing lab: (test code = performing lab:) [place] [id number] 16:45:00 Test Item Value Reference Range Interpretation Comments GLUBED (test code = GLUBED) 248 mg/dL 60-125 H [id number] 16:23:00 Test Item Value Reference Range Interpretation Comments glubed (test code = glubed) 248 mg/dL 60-125 H performing lab: (test code = performing lab:) [place] 31230023-03-10 16:23:00 Test Item Value Reference Range Interpretation Comments glubed (test code = glubed) 248 mg/dL 60-125 H performing lab: (test code = performing lab:) [place] 31230023-03-10 16:23:00 Test Item Value Reference Range Interpretation Comments glubed (test code = glubed) 248 mg/dL 60-125 H performing lab: (test code = performing lab:) [place] 31230023-03-10 16:23:00 Test Item Value Reference Range Interpretation Comments glubed (test code = glubed) 248 mg/dL 60-125 H performing lab: (test code = performing lab:) [place] [id number] 12:02:00 Test Item Value Reference Range Interpretation Comments GLUBED (test code = GLUBED) 243 mg/dL 60-125 H [id number] 11:18:00 Test Item Value Reference Range Interpretation Comments glubed (test code = glubed) 243 mg/dL 60-125 H performing lab: (test code = performing lab:) [place] 31230023-03-10 11:18:00 Test Item Value Reference Range Interpretation Comments glubed (test code = glubed) 243 mg/dL 60-125 H performing lab: (test code = performing lab:) [place] 31230023-03-10 11:18:00 Test Item Value Reference Range Interpretation Comments glubed (test code = glubed) 243 mg/dL 60-125 H performing lab: (test code = performing lab:) [place] 31230023-03-10 11:18:00 Test Item Value Reference Range Interpretation Comments glubed (test code = glubed) 243 mg/dL 60-125 H performing lab: (test code = performing lab:) [place] [id number] 09:16:00 Test Item Value Reference Range Interpretation Comments GLUBED (test code = GLUBED) 255 mg/dL 60-125 H [id number] 09:05:00 Test Item Value Reference Range Interpretation Comments glubed (test code = glubed) 255 mg/dL 60-125 H performing lab: (test code = performing lab:) [place] 31230023-03-10 09:05:00 Test Item Value Reference Range Interpretation Comments glubed (test code = glubed) 255 mg/dL 60-125 H performing lab: (test code = performing lab:) [place] 31230023-03-10 09:05:00 Test Item Value Reference Range Interpretation Comments glubed (test code = glubed) 255 mg/dL 60-125 H performing lab: (test code = performing lab:) [place] 31230023-03-10 09:05:00 Test Item Value Reference Range Interpretation Comments glubed (test code = glubed) 255 mg/dL 60-125 H performing lab: (test code = performing lab:) [facility] [id number] 06:55:00 Test Item Value Reference Range Interpretation Comments SODIUM (test code = 138 mmol/L 136-145 N NA) POTASSIUM (test 4.0 mmol/L 3.5-5.1 N code = K) CHLORIDE (test code 102.0 mmol/L 98-107 N = CL) CARBON DIOXIDE 26.6 mmol/L 21-32 N (test code = CO2) GLUCOSE (test code 145 mg/dL 70-110 H = GLU) BLOOD UREA NITROGEN 20 mg/dL 7-18 H (test code = BUN) GLOMERULAR 98.7 >60 The Glomerular FILTRATION RATE Filtration R ate is a (test code = GFR) calculated parameterbased on serum Creatinin e, patient age and sex. GFR valuesless than 60 mL/min/1.73 squ are meters are russell cative ofChronic Kidne y Disease. Values less than 15 mL/min/1.73squa re meters indicate Kidney failure. The calculation for GFR is based on the CK D-EPI (2020) calculat ion. This formulais race indifferent and is the recommended for jonathan for GFRby the N at[facility] on for Adults.The GFR will not calculate i f the sex is unknown or if thepatient's ag e is <18 years. CREATININE (test 0.82 mg/dL 0.55-1.30 N code = CREAT) CALCIUM (test code 8.4 mg/dL 8.2-10.1 N = CA) HGB [id number] 06:18:00 Test Item Value Reference Range Interpretation Comments HEMOGLOBIN (test code = HGB) 12.4 g/dL 12-16 N HEMATOCRIT (test code = HCT) 36.7 % 37-47 L [id number] 05:37:00 Test Item Value Reference Range Interpretation Comments GLUBED (test code = GLUBED) 165 mg/dL 60-125 H [id number] 05:20:00 Test Item Value Reference Range Interpretation Comments glubed (test code = glubed) 165 mg/dL 60-125 H performing lab: (test code = performing lab:) [facility] 05:20:00 Test Item Value Reference Range Interpretation Comments glubed (test code = glubed) 165 mg/dL 60-125 H performing lab: (test code = performing lab:) [facility] 05:20:00 Test Item Value Reference Range Interpretation Comments glubed (test code = glubed) 165 mg/dL 60-125 H performing lab: (test code = performing lab:) [facility] 05:20:00 Test Item Value Reference Range Interpretation Comments glubed (test code = glubed) 165 mg/dL 60-125 H performing lab: (test code = performing lab:) [facility] 2022-11-03 05:10:00 Test Item Value Reference Range Interpretation Comments hemoglobin (test code = hemoglobin) 12.4 g/dL 12-16 hematocrit (test code = hematocrit) 36.7 % 37-47 L performing lab: (test code = performing lab:) [facility] - Blood 2022-11-03 05:10:00 Test Item Value Reference Range Interpretation Comments hemoglobin (test code = hemoglobin) 12.4 g/dL 12-16 hematocrit (test code = hematocrit) 36.7 % 37-47 L performing lab: (test code = performing lab:) [facility] MedicineHemoglobin and Hematocrit panel - Blood 2022-11-03 05:10:00 Test Item Value Reference Range Interpretation Comments hemoglobin (test code = hemoglobin) 12.4 g/dL 12-16 hematocrit (test code = hematocrit) 36.7 % 37-47 L performing lab: (test code = performing lab:) [facility] MedicineHemoglobin and Hematocrit panel - Blood 2022-11-03 05:10:00 Test Item Value Reference Range Interpretation Comments hemoglobin (test code = hemoglobin) 12.4 g/dL 12-16 hematocrit (test code = hematocrit) 36.7 % 37-47 L performing lab: (test code = performing lab:) [place] [id number] 20:18:00 Test Item Value Reference Range Interpretation Comments GLUBED (test code = GLUBED) 260 mg/dL 60-125 H [id number] 19:58:00 Test Item Value Reference Range Interpretation Comments glubed (test code = glubed) 260 mg/dL 60-125 H performing lab: (test code = performing lab:) [facility] 19:58:00 Test Item Value Reference Range Interpretation Comments glubed (test code = glubed) 260 mg/dL 60-125 H performing lab: (test code = performing lab:) [place] 31230023-03-09 19:58:00 Test Item Value Reference Range Interpretation Comments glubed (test code = glubed) 260 mg/dL 60-125 H performing lab: (test code = performing lab:) [place] 31230023-03-09 19:58:00 Test Item Value Reference Range Interpretation Comments glubed (test code = glubed) 260 mg/dL 60-125 H performing lab: (test code = performing lab:) [place] [id number] 18:26:00 Test Item Value Reference Range Interpretation Comments GLUBED (test code = GLUBED) 280 mg/dL 60-125 H [id number] 18:14:00 Test Item Value Reference Range Interpretation Comments glubed (test code = glubed) 280 mg/dL 60-125 H performing lab: (test code = performing lab:) [place] 31230023-03-09 18:14:00 Test Item Value Reference Range Interpretation Comments glubed (test code = glubed) 280 mg/dL 60-125 H performing lab: (test code = performing lab:) [place] 31230023-03-09 18:14:00 Test Item Value Reference Range Interpretation Comments glubed (test code = glubed) 280 mg/dL 60-125 H performing lab: (test code = performing lab:) [facility] 18:14:00 Test Item Value Reference Range Interpretation Comments glubed (test code = glubed) 280 mg/dL 60-125 H performing lab: (test code = performing lab:) [place] [id number] 12:13:00 Test Item Value Reference Range Interpretation Comments GLUBED (test code = GLUBED) 273 mg/dL 60-125 H [id number] 12:01:00 Test Item Value Reference Range Interpretation Comments glubed (test code = glubed) 273 mg/dL 60-125 H performing lab: (test code = performing lab:) [place] 31230023-03-09 12:01:00 Test Item Value Reference Range Interpretation Comments glubed (test code = glubed) 273 mg/dL 60-125 H performing lab: (test code = performing lab:) [place] 31230023-03-09 12:01:00 Test Item Value Reference Range Interpretation Comments glubed (test code = glubed) 273 mg/dL 60-125 H performing lab: (test code = performing lab:) [place] 31230023-03-09 12:01:00 Test Item Value Reference Range Interpretation Comments glubed (test code = glubed) 273 mg/dL 60-125 H performing lab: (test code = performing lab:) [facility]- XR SPINE 1 V SPEC [id number] 07:18:00 [facility] : 1960 Sex: M Patient Name: JUSTICE MARS Unit No: [id number] EXAMS: CPT CODE: [id number] XR SPINE 1 V SPEC LEVEL 59248 INTRAOPERATIVE LATERAL CERVICAL SPINE COMMENT: Anterior fusion has been performed at C3-4 and C4-5. at 0718 Reported and signed by: Hayden Garcia MD CC: Perry Bruno MD Technologist: Vera Sánchez(R) Transcribed D/ (0718) tRITESHJCL [facility] NAME: JUSTICE MARS [address] PHYS: Perry Wolf MD : 1960 AGE: 62 SEX: M [place], [place] [address] LOC: Y.512 A PHONE #: [phone] EXAM DATE: 11/01/2022 STATUS: ADM IN FAX #: [phone] RAD #:[id number] D/C DT PAGE 1 Signed Report Patient Name: JUSTICE MARS Unit No: [id number] EXAMS: CPT CODE: [id number] XR SPINE 1 V SPEC LEVEL 29167 (Continued) Orig Print D/T: S: 11/02/2022 (0721) [facility] NAME: JUSTICE MARS [address] [facility] PHYS: Perry Wolf MD : 1960 AGE: 62 SEX: M [place], [place] [address] LOC: Y.512 A PHONE #: [phone] EXAM DATE: 11/01/2022 STATUS: ADM IN FAX #: [phone] RAD #: [id number] D/C DT PAGE 2 Signed Report- XR SPINE 1 V SPEC [id number] 07:13:00[facility] : 1960 Sex: M Patient Name: JUSTICE MARS Unit No: [id number] EXAMS: CPT CODE: [id number] XR SPINE 1 V SPEC LEVEL 45073 INTRAOPERATIVE LATERAL CERVICAL SPINE Film 1. Surgical instruments are posterior to C5 and C6. Film2. Posterior fusion has been performed from C4 to T1. at 0713 Reported and signed by: Hayden Garcia MD CC: Perry Bruno MD Technologist: Vera Sánchez(R) Transcribed D/ (07) Donna [facility] NAME: JUSTICE MARS [address] [facility] PHYS: Perry Wolf MD : 1960 AGE: 62 SEX: M [place], [place] [address] LOC: Y.512 A PHONE #: [phone] EXAM DATE: 11/01/2022 STATUS: ADM IN FAX #: [phone] RAD #: [id number] D/C DT PAGE 1 Signed Report Patient Name: JUSTICE MARS Unit No: [id number] EXAMS: CPT CODE: [id number] XR SPINE 1 V SPEC LEVEL 45880 (Continued) Orig Print D/T: S: 11/02/2022 (0717) [facility] NAME: JUSTICE MARS [address] [facility] [address] PHYS: Perry Wolf MD : 1960 AGE: 62 SEX: M [place], [place] [address] LOC: Y.512 A PHONE #: [phone] EXAM DATE: 11/01/2022 STATUS: ADM IN FAX #: [phone] RAD #: [id number] D/C DT PAGE 2 Signed Report- XR SPINE 1 V SPEC [id number] 07:13:00 [facility] : 1960 Sex: M Patient Name: JUSTICE MARS Unit No: [id number] EXAMS: CPT CODE: [id number] XR SPINE 1 V SPEC LEVEL 49698 INTRAOPERATIVE LATERAL CERVICAL SPINE Film 1. Surgical instruments are posterior to C5 and C6. Film 2. Posterior fusion has been performed from C4 to T1. at 0713 Reported and signed by: Hayden Garcia MD CC: Perry Bruno MD Technologist: Jorge A.Kottor, R.T.(R) Transcribed D/ (0713) JulienJCL [facility] NAME: JUSTICE MARS [address] [facility] PHYS: Perry Wolf MD : 1960 AGE: 62 SEX: M [place], [place] [address] LOC: Y.512 A PHONE #: [phone] EXAM DATE: 11/01/2022 STATUS: ADM IN FAX #: [phone] RAD #: [id number] D/C DT PAGE 1 Signed Report PatientName: JUSTICE MARS Unit No: [id number] EXAMS: CPT CODE: [id number] XR SPINE 1 V SPEC LEVEL 03019 (Continued) Orig Print D/T: S: 11/02/2022 (0717) [facility] NAME: JUSTICE MARS [address] [facility] PHYS: Perry Wolf MD : 1960 AGE: 62 SEX: M [place] [id number] LOC: Y.512 A PHONE #: [phone] EXAM DATE: 11/01/2022 STATUS: ADM IN FAX #: [phone] RAD #: [id number] D/C DT PAGE 2 Signed ReportHGB [id number] 06:08:00 Test Item Value Reference Range Interpretation Comments HEMOGLOBIN (test code = HGB) 13.6 g/dL 12-16 N HEMATOCRIT (test code = HCT) 39.8 % 37-47 N [id number] 05:22:00 Test Item Value Reference Range Interpretation Comments GLUBED (test code = GLUBED) 200 mg/dL 60-125 H [id number] 05:07:00 Test Item Value Reference Range Interpretation Comments glubed (test code = glubed) 200 mg/dL 60-125 H performing lab: (test code = performing lab:) [facility]:07[facility]00 Test Item Value Reference Range Interpretation Comments glubed (test code = glubed) 200 mg/dL 60-125 H performing lab: (test code = performing lab:) [facility] 05:07:00 Test Item Value Reference Range Interpretation Comments glubed (test code = glubed) 200 mg/dL 60-125 H performing lab: (test code = performing lab:) [facility] 05:07:00 Test Item Value Reference Range Interpretation Comments glubed (test code = glubed) 200 mg/dL 60-125 H performing lab: (test code = performing lab:) [facility] - Blood 2022-11-02 03:56:00 Test Item Value Reference Range Interpretation Comments hemoglobin (test code = hemoglobin) 13.6 g/dL 12-16 hematocrit (test code = hematocrit) 39.8 % 37-47 performing lab: (test code = performing lab:) [facility] - Blood 2022-11-02 03:56:00 Test Item Value Reference Range Interpretation Comments hemoglobin (test code = hemoglobin) 13.6 g/dL 12-16 hematocrit (test code = hematocrit) 39.8 % 37-47 performing lab: (test code = performing lab:) [facility]ematoc[facility] - Blood 2022-11-02 03:56:00 Test Item Value Reference Range Interpretation Comments hemoglobin (test code = hemoglobin) 13.6 g/dL 12-16 hematocrit (test code = hematocrit) 39.8 % 37-47 performing lab: (test code = performing lab:) [facility] Blood 2022-11-02 03:56:00 Test Item Value Reference Range Interpretation Comments hemoglobin (test code = hemoglobin) 13.6 g/dL 12-16 hematocrit (test code = hematocrit) 39.8 % 37-47 performing lab: (test code = performing [facility] Test Item Value Reference Range Interpretation Comments GLUBED (test code = GLUBED) 303 mg/dL 60-125 H [id number] 20:28:00 Test Item Value Reference Range Interpretation Comments glubed (test code = glubed) 303 mg/dL 60-125 H performing lab: (test code = performing lab:) [facility]00 Test Item Value Reference Range Interpretation Comments glubed (test code = glubed) 303 mg/dL 60-125 H performing lab: (test code = performing lab:) [place] [id number] 20:28:00 Test Item Value Reference Range Interpretation Comments glubed (test code = glubed) 303 mg/dL 60-125 H performing lab: [facility]test code [facility] Test Item Value Reference Range Interpretation Comments glubed (test code = glubed) 303 mg/dL 60-125 H performing lab: (test code = performing lab:) [place] [id number] 17:05:00 Test Item Value Reference Range Interpretation Comments GLUBED (test code = GLUBED) 217 mg/dL 60-125 H [id number] 16:53:00 Test Item Value Reference Range Interpretation Comments glubed (test code = glubed) 217 mg/dL 60-125 H performing lab: (test code = performing lab:) [facility] 16:53:00 Test Item Value Reference Range Interpretation Comments glubed (test code = glubed) 217 mg/dL 60-125 H performing lab: (test code = performing lab:) [facility] 16:53:00 Test Item Value Reference Range Interpretation Comments glubed (test code = glubed) 217 mg/dL 60-125 H performing lab: (test code = performing lab:) [facility] 16:53:00 Test Item Value Reference Range Interpretation Comments glubed (test code = glubed) 217 mg/dL 60-125 H performing lab: (test code = performing lab:) [place] [id number] 16:23:00 Test Item Value Reference Range Interpretation Comments GLUBED (test code = GLUBED) 238 mg/dL 60-125 H [id number] 16:09:00 Test Item Value Reference Range Interpretation Comments glubed (test code = glubed) 238 mg/dL 60-125 H performing lab: (test code = performing lab:) [place] [id number] 16:09:00 Test Item Value Reference Range Interpretation Comments glubed (test code = glubed) 238 mg/dL 60-125 H performing lab: (test code = performing lab:) [facility] 16:09:00 Test Item Value Reference Range Interpretation Comments glubed (test code = glubed) 238 mg/dL 60-125 H performing lab: (test code = performing lab:) [place] [id number] 16:09:00 Test Item Value Reference Range Interpretation Comments glubed (test code = glubed) 238 mg/dL 60-125 H performing lab: (test code = performing lab:) [place] [id number] 16:09:00 Test Item Value Reference Range Interpretation Comments glubed (test code = glubed) 238 mg/dL 60-125 H performing lab: [facility]test code = [facility] Test Item Value Reference Range Interpretation Comments GLUBED (test code = GLUBED) 246 mg/dL 60-125 H [id number] 15:25:00 Test Item Value Reference Range Interpretation Comments glubed (test code = glubed) 246 mg/dL 60-125 H performing lab: (test code = performing lab:) [facility] 15:25:00 Test Item Value Reference Range Interpretation Comments glubed (test code = glubed) 246 mg/dL 60-125 H performing lab: (test code = performing lab:) [facility] 15:25:00 Test Item Value Reference Range Interpretation Comments glubed (test code = glubed) 246 mg/dL 60-125 H performing lab: (test code = performing lab:) [place] [id number] 15:25:00 Test Item Value Reference Range Interpretation Comments glubed (test code = glubed) 246 mg/dL 60-125 H performing lab: (test code = performing lab:) [place] [id number] 15:25:00 Test Item Value Reference Range Interpretation Comments glubed (test code = glubed) 246 mg/dL 60-125 H performing lab: (test code = performing lab:) [place] [id number] 14:38:00 Test Item Value Reference Range Interpretation Comments GLUBED (test code = GLUBED) 241 mg/dL 60-125 H [id number] 14:25:00 Test Item Value Reference Range Interpretation Comments glubed (test code = glubed) 241 mg/dL 60-125 H performing lab: (test code = performing lab:) [place] [id number] 14:25:00 Test Item Value Reference Range Interpretation Comments glubed (test code = glubed) 241 mg/dL 60-125 H performing lab: (test code = performing lab:) [place] [id number] 14:25:00 Test Item Value Reference Range Interpretation Comments glubed (test code = glubed) 241 mg/dL 60-125 H performing lab: (test code = performing lab:) [place] [id number] 14:25:00 Test Item Value Reference Range Interpretation Comments glubed (test code = glubed) 241 mg/dL 60-125 H performing lab: (test code = performing lab:) [place] [id number] 14:25:00 Test Item Value Reference Range Interpretation Comments glubed (test code = glubed) 241 mg/dL 60-125 H performing lab: (test code = performing lab:) [facility] [id number] 06:38:00 Test Item Value Reference Range Interpretation Comments SODIUM (test code = 137 mmol/L 136-145 N NA) POTASSIUM (test 4.4 mmol/L 3.5-5.1 N code = K) CHLORIDE (test code 100.0 mmol/L 98-107 N = CL) CARBON DIOXIDE 25.5 mmol/L 21-32 N (test code = CO2) GLUCOSE (test code 253 mg/dL 70-110 H = GLU) BLOOD UREA NITROGEN 15 mg/dL 7-18 N (test code = BUN) GLOMERULAR 94.7 >60 The Glomerular FILTRATION RATE Filtration R ate is a (test code = GFR) calculated parameterbased on serum Creatinin e, patient age and sex. GFR valuesless than 60 mL/min/1.73 squ are meters are russell cative ofChronic Kidne y Disease. Values less than 15 mL/min/1.73squa re meters indicate Kidney failure. The calculation for GFR is based on the CK D-EPI (2020) calculat ion. This formulais race indifferent and is the recommended for jonathan for GFRby the N [facility] for Ad[facility].The GFR will not calculate i f the sex is unknown or if thepatient's ag e is <18 years. CREATININE (test 0.91 mg/dL 0.55-1.30 N code = CREAT) CALCIUM (test code 9.2 mg/dL 8.2-10.1 N = CA) HGB [id number] 06:00:00 Test Item Value Reference Range Interpretation Comments HEMOGLOBIN (test code = HGB) 13.9 g/dL 12-16 N HEMATOCRIT (test code = HCT) 39.8 % 37-47 N [id number] 04:28:00 Test Item Value Reference Range Interpretation Comments GLUBED (test code = GLUBED) 258 mg/dL 60-125 H [id number] 04:17:00 Test Item Value Reference Range Interpretation Comments glubed (test code = glubed) 258 mg/dL 60-125 H performing lab: (test code = performing lab:) [facility] 04:17:00 Test Item Value Reference Range Interpretation Comments glubed (test code = glubed) 258 mg/dL 60-125 H performing lab: (test code = performing lab:) [place] [id number] 04:17:00 Test Item Value Reference Range Interpretation Comments glubed (test code = glubed) 258 mg/dL 60-125 H performing lab: (test code = performing lab:) [place] [id number] 04:17:00 Test Item Value Reference Range Interpretation Comments glubed (test code = glubed) 258 mg/dL 60-125 H performing lab: (test code = performing lab:) [place] [id number] 04:17:00 Test Item Value Reference Range Interpretation Comments glubed (test code = glubed) 258 mg/dL 60-125 H performing lab: (test code = performing lab:) [facility] 2022-11-01 04:10:00 Test Item Value Reference Range Interpretation Comments hemoglobin (test code = hemoglobin) 13.9 g/dL 12-16 hematocrit (test code = hematocrit) 39.8 % 37-47 performing lab: (test code = performing lab:) [facility] - Blood 2022-11-01 04:10:00 Test Item Value Reference Range Interpretation Comments hemoglobin (test code = hemoglobin) 13.9 g/dL 12-16 hematocrit (test code = hematocrit) 39.8 % 37-47 performing lab: (test code = performing lab:) [facility] - Blood 2022-11-01 04:10:00 Test Item Value Reference Range Interpretation Comments hemoglobin (test code = hemoglobin) 13.9 g/dL 12-16 hematocrit (test code = hematocrit) 39.8 % 37-47 performing lab: (test code = performing lab:) [facility] - Blood 2022-11-01 04:10:00 Test Item Value Reference Range Interpretation Comments hemoglobin (test code = hemoglobin) 13.9 g/dL 12-16 hematocrit (test code = hematocrit) 39.8 % 37-47 performing lab: (test code = performing lab:) [facility] - Blood 2022-11-01 04:10:00 Test Item Value Reference Range Interpretation Comments hemoglobin (test code = hemoglobin) 13.9 g/dL 12-16 hematocrit (test code = hematocrit) 39.8 % 37-47 performing lab: (test code = performing lab:) [facility] [id number] 21:10:00 Test Item Value Reference Range Interpretation Comments GLUBED (test code = GLUBED) 257 mg/dL 60-125 H [id number] 20:59:00 Test Item Value Reference Range Interpretation Comments glubed (test code = glubed) 257 mg/dL 60-125 H performing lab: (test code = performing lab:) [facility] [id number] 20:59:00 Test Item Value Reference Range Interpretation Comments glubed (test code = glubed) 257 mg/dL 60-125 H performing lab: (test code = performing lab:) [place] [id number] 20:59:00 Test Item Value Reference Range Interpretation Comments glubed (test code = glubed) 257 mg/dL 60-125 H performing lab: (test code = performing lab:) [place] 31230023-03-07 20:59:00 Test Item Value Reference Range Interpretation Comments glubed (test code = glubed) 257 mg/dL 60-125 H performing lab: (test code = performing lab:) [place] 31230023-03-07 20:59:00 Test Item Value Reference Range Interpretation Comments glubed (test code = glubed) 257 mg/dL 60-125 H performing lab: (test code = performing lab:) [place] [id number] 19:34:00 Test Item Value Reference Range Interpretation Comments GLUBED (test code = GLUBED) 259 mg/dL 60-125 H [id number] 18:51:00 Test Item Value Reference Range Interpretation Comments glubed (test code = glubed) 259 mg/dL 60-125 H performing lab: (test code = performing lab:) [place] 31230023-03-07 18:51:00 Test Item Value Reference Range Interpretation Comments glubed (test code = glubed) 259 mg/dL 60-125 H performing lab: (test code = performing lab:) [place] 31230023-03-07 18:51:00 Test Item Value Reference Range Interpretation Comments glubed (test code = glubed) 259 mg/dL 60-125 H performing lab: (test code = performing lab:) [place] 31230023-03-07 18:51:00 Test Item Value Reference Range Interpretation Comments glubed (test code = glubed) 259 mg/dL 60-125 H performing lab: (test code = performing lab:) [place] 31230023-03-07 18:51:00 Test Item Value Reference Range Interpretation Comments glubed (test code = glubed) 259 mg/dL 60-125 H performing lab: (test code = performing lab:) [facility] Test Item Value Reference Range Interpretation Comments GLUBED (test code = GLUBED) 273 mg/dL 60-125 H [id number] 17:07:00 Test Item Value Reference Range Interpretation Comments glubed (test code = glubed) 273 mg/dL 60-125 H performing lab: (test code = performing lab:) [place] 31230023-03-07 17:07:00 Test Item Value Reference Range Interpretation Comments glubed (test code = glubed) 273 mg/dL 60-125 H performing lab: (test code = performing lab:) [place] 31230023-03-07 17:07:00 Test Item Value Reference Range Interpretation Comments glubed (test code = glubed) 273 mg/dL 60-125 H performing lab: (test code = performing lab:) [place] 31230023-03-07 17:07:00 Test Item Value Reference Range Interpretation Comments glubed (test code = glubed) 273 mg/dL 60-125 H performing lab: (test code = performing lab:) [facility]00 Test Item Value Reference Range Interpretation Comments glubed (test code = glubed) 273 mg/dL 60-125 H performing lab: (test code = performing lab:) [place] [id number] 09:32:00 Test Item Value Reference Range Interpretation Comments GLUBED (test code = GLUBED) 209 mg/dL 60-125 H [id number] 09:21:00 Test Item Value Reference Range Interpretation Comments glubed (test code = glubed) 209 mg/dL 60-125 H performing lab: (test code = performing lab:) [place] 31230023-03-07 09:21:00 Test Item Value Reference Range Interpretation Comments glubed (test code = glubed) 209 mg/dL 60-125 H performing lab: (test code = performing lab:) [place] 31230023-03-07 09:21:00 Test Item Value Reference Range Interpretation Comments glubed (test code = glubed) 209 mg/dL 60-125 H performing lab: (test code = performing lab:) [facility] Test Item Value Reference Range Interpretation Comments glubed (test code = glubed) 209 mg/dL 60-125 H performing lab: (test code = performing lab:) [facility] 09:21:00 Test Item Value Reference Range Interpretation Comments glubed (test code = glubed) 209 mg/dL 60-125 H performing lab: (test code = performing lab:) [facility] [id number] 16:05:00 Test Item Value Reference Range Interpretation Comments AB HEPATITIS A IGM (test code = NONREACTIVE NONREACTIVE HAVMAB) AG HEPATITIS B SURFACE (test code NONREACTIVE NONREACTIVE = HBSAG) AB HEPATITIS B CORE IGM (test NONREACTIVE NONREACTIVE code = HBCMAB) AB HEPATITIS C (test code = NONREACTIVE NONREACTIVE HCVAB) SIGNAL TO CUTOFF (test code = 0.27 <0.80 CUTOFF) AB HIV 16:05:00 Test Item Value Reference Range Interpretation Comments AB HIV 1 (test code NONREACTIVE NONREACTIVE Done by COPsyncaur = HIV1AB) 4th Gen HIV Ag/ Ab Combo Screen ACUTE HEPATITIS [id number] 16:04:00 Test Item Value Reference Range Interpretation Comments AB HEPATITIS A IGM (test code = NONREACTIVE NONREACTIVE HAVMAB) AG HEPATITIS B SURFACE (test code NONREACTIVE NONREACTIVE = HBSAG) AB HEPATITIS B CORE IGM (test NONREACTIVE NONREACTIVE code = HBCMAB) AB HEPATITIS C (test code = NONREACTIVE NONREACTIVE HCVAB) SIGNAL TO CUTOFF (test code = 0.27 <0.80 N CUTOFF) AB HIV 1 16:04:00 Test Item Value Reference Range Interpretation Comments AB HIV 1 2 (test NONREACTIVE NONREACTIVE Done by [employer] code = [id number]) 4th Gen HIV Ag/Ab Combo Screen CBC W/AUTO [id number] 13:53:00 Test Item Value Reference Range Interpretation Comments WHITE BLOOD CELL (test code = WBC) 6.5 K/mm3 5.7-10.5 N RED BLOOD CELL (test code = RBC) 4.55 M/mm3 4.2-5.4 N HEMOGLOBIN (test code = HGB) 14.3 g/dL 12-16 N HEMATOCRIT (test code = HCT) 41.0 % 37-47 N MEAN CELL VOLUME (test code = MCV) 90 fL 80-98 N MEAN CELL HGB (test code = MCH) 31.4 pg 27-34 N MEAN CELL HGB CONCENTRATION (test 34.9 g/dL 30.8-34.1 H code = MCHC) RED CELL DISTRIBUTION WIDTH (test 12.8 % 11-16 N code = RDW) PLT (test code = PLT) 213 K/mm3 130-400 N MEAN PLATELET VOLUME (test code = 10.1 fL 8.9-12.1 N MPV) NEUTROPHIL % (test code = NT%) 50.6 % 45-70 N LYMPHOCYTE % (test code = LY%) 30.7 % 20-40 N MONOCYTE % (test code = MO%) 12.3 % 3-10 H EOSINOPHIL % (test code = EO%) 5.1 % 1-5 H BASOPHIL % (test code = BA%) 0.8 % 0.0-1.1 N NEUTROPHIL # (test code = NT#) 3.28 K/mm3 2.00-7.50 N LYMPHOCYTE # (test code = LY#) 1.99 K/mm3 1.50-4.00 N MONOCYTE # (test code = MO#) 0.80 K/mm3 0.2-0.8 N EOSINOPHIL # (test code = EO#) 0.33 K/mm3 0.04-0.4 N BASOPHIL # (test code = BA#) 0.05 K/mm3 0.02-0.10 N MANUAL DIFF REQUIRED (test code = NO MANUAL DIFF MDIFF) NUCLEATED RED BLOOD CELL (test 0 % 0-0 N code = NRBC) PROTHROMBIN [id number] 13:26:00 Test Item Value Reference Range Interpretation Comments PROTHROMBIN TIME 11.4 secs 9.7-12.5 N Please note new normal PATIENT (test code = range. PTP) INTERNATIONAL NORMAL 1.03 <2.0 RECOMME NDED THERAPEUTIC RATIO (test code = RANGE FOR ORAL INR) ANTICOAGULANTTR EATMENT: CONDITION INRPr ophylaxis of venous throm bosis in 2.0 - 3.0 high- risk medical or surg ical patientsTreatme nt of venous thrombos is 2.0 - 3.0Prevention o f embolism 2.0 - 3.0Prevention o f recurrent embol ism, or 3.0 - 4.5 patie nts with mechanical pros thetic intravascular v horn IS PATIENT ON ANTICOAGULANTS ? YLIST ANTICOAGULANT/ANTI PLT MEDICATION : AspirinHas Lab been notified if Patient is on Heparin Drip? NOTHROMBOPLASTIN TIME [id number] 13:26:00 Test Item Value Reference Range Interpretation Comments PTT ACTIVATED (test 30.6 secs 26.6-34.6 N Please n ote new code = APTT) normal range. IS PATIENT ON ANTICOAGULANTS ? YLIST ANTICOAGULANT/ANTI PLT MEDICATION : AspirinHas Lab been notified if Patient is on Heparin Drip? NOCOMPREHENSIVE METABOLIC [id number] 13:21:00 Test Item Value Reference Range Interpretation Comments SODIUM (test code = 138 mmol/L 136-145 N NA) POTASSIUM (test 4.8 mmol/L 3.5-5.1 N code = K) CHLORIDE (test code 104.0 mmol/L 98-107 N = CL) CARBON DIOXIDE 28.4 mmol/L 21-32 N (test code = CO2) GLUCOSE (test code 263 mg/dL 70-110 H = GLU) BLOOD UREA NITROGEN 18 mg/dL 7-18 N (test code = BUN) GLOMERULAR 76.3 >60 The Glomerular FILTRATION RATE Filtration R ate is a (test code = GFR) calculated parameterbased on serum Creatinin e, patient age and sex. GFR valuesless than 60 mL/min/1.73 squ are meters are russell cative ofChronic Kidne y Disease. Values less than 15 mL/min/1.73squa re meters indicate Kidney failure. The calculation for GFR is based on the CK D-EPI (2020) calculat ion. This formulais race indifferent and is the recommended for jonathan for GFRby the N [facility] for Adults.The GFR will not calculate i f the sex is unknown or if thepatient's ag e is <18 years. CREATININE (test 1.09 mg/dL 0.55-1.30 N code = CREAT) TOTAL PROTEIN (test 6.6 g/dL 6.4-8.2 N code = PROT) ALBUMIN (test code 4.0 g/dL 3.4-5.0 N = ALB) GLOBULIN (test code 2.6 g/dL 2.2-4.2 N = GLOB) ALBUMIN/GLOBULIN 1.5 0.7-2.0 N RATIO (test code = A/G) CALCIUM (test code 8.7 mg/dL 8.2-10.1 N = CA) BILIRUBIN TOTAL 0.90 mg/dL 0.2-1.00 N (test code = BILT) SGOT/AST (test code 23.0 U/L 15-37 N = AST) SGPT/ALT (test code 19.0 U/L 12-78 N = ALT) ALKALINE 74 U/L 46-116 N PHOSPHATASE TOTAL (test code = ALKP) BASIC METABOLIC [id number] 06:05:41 Test Item Value Reference Range Interpretation Comments SODIUM (BEAKER) 137 meq/L 136-145 (test code = 381) POTASSIUM 4.2 meq/L 3.5-5.1 Specimen slight ly (BEAKER) (test hemolyzed code = 379) CHLORIDE (BEAKER) 103 meq/L 98-107 (test code = 382) CO2 (BEAKER) 21 meq/L 22-29 L (test code = 355) BLOOD UREA 25 mg/dL 7-21 H NITROGEN (BEAKER) (test code = 354) CREATININE 1.08 mg/dL 0.57-1.25 Specimen slight ly (BEAKER) (test hemolyzed code = 358) GLUCOSE RANDOM 153 mg/dL 70-105 H (BEAKER) (test code = 652) CALCIUM (BEAKER) 9.0 mg/dL 8.4-10.2 (test code = 697) EGFR (BEAKER) 79 Interpretatio n of eGFR (test code = mL/min/1.73 values Stage De scription 1092) sq m Result G1 Alisha l or high >=90 G2 Mildly decreased 60-89 G3a Mildl y to moderately 45-5 9 G3b Moderately to s everely 30-44 G4 Severl y decreased 15-29 G5 Kidney failure <15Reported eGF R is based on the CKD-EPI 2020 equation that d oes not use a race coefficientEsti mated GFR is not as accur ate as Creatinine Yarelis arun in predicting glom erular filtration rate . Estimated GFR is not appl icable for dialysis patien ts Talent Sourcing Specialist ID - [facility] [id number] 06:05:41 Test Item Value Reference Range Interpretation Comments TOTAL PROTEIN (BEAKER) 7.0 gm/dL 6.0-8.3 Speci men slightly (test code = 770) hemolyzed ALBUMIN (BEAKER) (test 3.9 g/dL 3.5-5.0 Speci men slightly code = 1145) hemolyzed BILIRUBIN TOTAL 0.6 mg/dL 0.2-1.2 Specimen sli ghtly (BEAKER) (test code = hemoly zed 377) BILIRUBIN DIRECT 0.2 mg/dL 0.1-0.5 Specimen sl ightly (BEAKER) (test code = hemoly zed 706) ALKALINE PHOSPHATASE 71 U/L 40-150 (BEAKER) (test code = 346) AST (SGOT) (BEAKER) 30 U/L 5-34 Specimen slightly (test code = 353) hemolyzed ALT (SGPT) (BEAKER) 14 U/L 6-55 Specimen slightly (test code = 347) hemolyzed Talent Sourcing Specialist ID - [facility]-Glucose [id number] 21:29:30 Test Item Value Reference Range Interpretation Comments POC-Glucose Meter (test 265 mg/dL 70-110 H : TE STED AT [facility] code = 1538) [address] [place] [address], [facility] 30: Talent Sourcing Specialist/Techni pankaj ID = [id number] for Giago, Nessa Lab Interpretation (test Abnormal code = 08484-7) [facility]-Glucose [id number] 21:29:30 Test Item Value Reference Range Interpretation Comments POC-Glucose Meter (test 265 mg/dL 70-110 H : TE STED AT [facility] code = 1538) [address] [place] [address], [facility] 30: Talent Sourcing Specialist/Techni pankaj ID = [id number] for Giago, Nessa Lab Interpretation (test Abnormal code = 44841-1) [facility]-Glucose [id number] 21:29:30 Test Item Value Reference Range Interpretation Comments POC-Glucose Meter (test 265 mg/dL 70-110 H : TE STED AT [facility] code = 1538) [address] [place] [address], [facility] 30: Talent Sourcing Specialist/Techni pankaj ID = [id number] for Nessa Mendoza Lab Interpretation (test Abnormal code = 27525-2) [facility] [id number] 21:29:30 Test Item Value Reference Range Interpretation Comments POC-GLUCOSE METER 265 mg/dL 70-110 H : TESTED A T [facility]SC 6720 (BEAKER) (test code = [place], 1538) [id number]: Talent Sourcing Specialist/Techni pankaj ID = [id number] for Nessa Angulo BASIC METABOLIC [id number] 06:24:11 Test Item Value Reference Range Interpretation Comments SODIUM (BEAKER) 134 meq/L 136-145 L (test code = 381) POTASSIUM 4.4 meq/L 3.5-5.1 (BEAKER) (test code = 379) CHLORIDE (BEAKER) 104 meq/L 98-107 (test code = 382) CO2 (BEAKER) 19 meq/L 22-29 L (test code = 355) BLOOD UREA 23 mg/dL 7-21 H NITROGEN (BEAKER) (test code = 354) CREATININE 1.09 mg/dL 0.57-1.25 (BEAKER) (test code = 358) GLUCOSE RANDOM 262 mg/dL 70-105 H (BEAKER) (test code = 652) CALCIUM (BEAKER) 8.9 mg/dL 8.4-10.2 (test code = 697) EGFR (BEAKER) 78 Interpretati on of eGFR (test code = mL/min/1.73 values Stage De scription 1092) sq m Result G1 Alisha l or high >=90 G2 Mildly decreased 60-89 G3a Mildl y to moderately 45-5 9 G3b Moderately to s everely 30-44 G4 Severl y decreased 15-29 G5 Kidney failure <15Reported eGF R is based on the CKD-EPI 2021 equation that d oes not use a race coefficientEsti mated GFR is not as accur ate as Creatinine Yarelis dias in predicting glom erular filtration rate . Estimated GFR is not appl icable for dialysis patien ts Talent Sourcing Specialist ID - [facility] LHEPATIC FUNCTION [id number] 06:24:11 Test Item Value Reference Range Interpretation Comments TOTAL PROTEIN (BEAKER) (test code = 6.7 gm/dL 6.0-8.3 770) ALBUMIN (BEAKER) (test code = 1145) 3.8 g/dL 3.5-5.0 BILIRUBIN TOTAL (BEAKER) (test code 0.6 mg/dL 0.2-1.2 = 377) BILIRUBIN DIRECT (BEAKER) (test 0.2 mg/dL 0.1-0.5 code = 706) ALKALINE PHOSPHATASE (BEAKER) (test 70 U/L 40-150 code = 346) AST (SGOT) (BEAKER) (test code = 30 U/L 5-34 353) ALT (SGPT) (BEAKER) (test code = 15 U/L 6-55 347) Talent Sourcing Specialist ID - GINI LCBC (HEMOGRAM ONLY)2022-05-03 04:48:19 Test Item Value Reference Range Interpretation Comments WHITE BLOOD CELL COUNT (BEAKER) 8.1 K/ L 3.5-10.5 (test code = 775) RED BLOOD CELL COUNT (BEAKER) 4.54 M/ L 4.63-6.08 L (test code = 761) HEMOGLOBIN (BEAKER) (test code = 14.3 GM/DL 13.7-17.5 410) HEMATOCRIT (BEAKER) (test code = 40.9 % 40.1-51.0 411) MEAN CORPUSCULAR VOLUME (BEAKER) 90.1 fL 79.0-92.2 (test code = 753) MEAN CORPUSCULAR HEMOGLOBIN 31.5 pg 25.7-32.2 (BEAKER) (test code = 751) MEAN CORPUSCULAR HEMOGLOBIN CONC 35.0 GM/DL 32.3-36.5 (BEAKER) (test code = 752) RED CELL DISTRIBUTION WIDTH 12.1 % 11.6-14.4 (BEAKER) (test code = 412) PLATELET COUNT (BEAKER) (test 174 K/CU MM 150-450 code = 756) MEAN PLATELET VOLUME (BEAKER) 10.1 fL 9.4-12.4 (test code = 754) NUCLEATED RED BLOOD CELLS 0 /100 WBC 0-0 (BEAKER) (test code = 413) POCT-GLUCOSE [id number] 23:39:22 Test Item Value Reference Range Interpretation Comments POC-GLUCOSE METER 296 mg/dL 70-110 H : TESTED A T [facility] 6720 (BEAKER) (test code = [facility], 1538) [address]: Talent Sourcing Specialist/Techni pankaj ID = [id number] for SILVANA PURDY POCT-GLUCOSE [id number] 16:43:56 Test Item Value Reference Range Interpretation Comments POC-GLUCOSE METER 328 mg/dL 70-110 H : TESTED A T [facility] 6720 ([facility]) (test code [facility], = 1538) 91677: Talent Sourcing Specialist/Techni pankaj ID = [id number] for SUNNY Mcdonald POCT-GLUCOSE [id number] 11:35:25 Test Item Value Reference Range Interpretation Comments POC-GLUCOSE METER 374 mg/dL 70-110 H : TESTED A T [facility] 6720 ([facility]) (test code = [facility], 1538) 77976: Talent Sourcing Specialist/Techni pankaj ID = [id number] for ZHENG CHANDLER HEMOGLOBIN [id number] 10:22:31 Test Item Value Reference Range Interpretation Comments HEMOGLOBIN A1C 6.3 % See_Comment H [Automated m essage] ELECTROPHORESIS ([facility]) The system which (test code = 3811) generated this result transmitted ref erence range: <=5.6%. The reference range was not used to int erpret this result as normal/abnormal . "The A1c is measured using a [facility]-certified method. HbA1c value equal to or greater than 6.5% as thediagnosis cutoff for diabetes. An HbA1c value of 5.7- 6.4% indicates increased risk for diabetes (prediabetes)."Talent Sourcing Specialist ID - ADMPOCT- GLUCOSE [id number] 08:02:01 Test Item Value Reference Range Interpretation Comments POC-GLUCOSE METER 287 mg/dL 70-110 H : TESTED A T [facility] 6720 (BEAKER) (test code = [facility], 1538) 17011: Talent Sourcing Specialist/Techni pankaj ID = [id number] for LOU GANDARA ZHENG BASIC METABOLIC [id number] 06:47:06 Test Item Value Reference Range Interpretation Comments SODIUM (BEAKER) 134 meq/L 136-145 L (test code = 381) POTASSIUM 4.3 meq/L 3.5-5.1 Specimen slight ly (BEAKER) (test hemolyzed code = 379) CHLORIDE (BEAKER) 103 meq/L 98-107 (test code = 382) CO2 (BEAKER) 21 meq/L 22-29 L (test code = 355) BLOOD UREA 25 mg/dL 7-21 H NITROGEN (BEAKER) (test code = 354) CREATININE 1.03 mg/dL 0.57-1.25 Specimen slight ly (BEAKER) (test hemolyzed code = 358) GLUCOSE RANDOM 283 mg/dL 70-105 H (BEAKER) (test code = 652) CALCIUM (BEAKER) 8.7 mg/dL 8.4-10.2 (test code = 697) EGFR (BEAKER) 83 Interpretatio n of eGFR (test code = mL/min/1.73 values Stage De scription 1092) sq m Result G1 Alisha l or high >=90 G2 Mildly decreased 60-89 G3a Mildl y to moderately 45-5 9 G3b Moderately to s everely 30-44 G4 Severl y decreased 15-29 G5 Kidne y failure <15Reported eGF R is based on the CKD-EPI 2020 equation that d oes not use a race coefficientEsti mated GFR is not as accur ate as Creatinine Yarelis arun in predicting glom erular filtration rate . Estimated GFR is not appl icable for dialysis patien ts Talent Sourcing Specialist ID - MATTEO GARCIA SENSITIVITY TROPONIN [id number] 06:35:44 Test Item Value Reference Range Interpretation Comments HIGH SENSITIVITY 5 pg/ml See_Comment [Automated message] TROPONIN I (test code = The system which [id number]) generated this result transmitted ref erence range: <=35. Th e reference range was not used to interpr et this result as normal/abnormal . Talent Sourcing Specialist ID - GINI LThe FLOOR COVERER STAT High Sensitivity Troponin-I results should be used in conjunction with other diagnostic information such as ECG, clinical observations and information, and patient symptoms to aid in the diagnosis of CT.CBC (HEMOGRAM ONLY)2022-05-02 06:06:06 Test Item Value Reference Range Interpretation Comments WHITE BLOOD CELL COUNT (BEAKER) 4.2 K/ L 3.5-10.5 (test code = 775) RED BLOOD CELL COUNT (BEAKER) 4.38 M/ L 4.63-6.08 L (test code = 761) HEMOGLOBIN (BEAKER) (test code = 13.7 GM/DL 13.7-17.5 410) HEMATOCRIT (BEAKER) (test code = 39.0 % 40.1-51.0 L 411) MEAN CORPUSCULAR VOLUME (BEAKER) 89.0 fL 79.0-92.2 (test code = 753) MEAN CORPUSCULAR HEMOGLOBIN 31.3 pg 25.7-32.2 (BEAKER) (test code = 751) MEAN CORPUSCULAR HEMOGLOBIN CONC 35.1 GM/DL 32.3-36.5 (BEAKER) (test code = 752) RED CELL DISTRIBUTION WIDTH 12.1 % 11.6-14.4 (BEAKER) (test code = 412) PLATELET COUNT (BEAKER) (test 159 K/CU MM 150-450 code = 756) MEAN PLATELET VOLUME (BEAKER) 9.9 fL 9.4-12.4 (test code = 754) NUCLEATED RED BLOOD CELLS 0 /100 WBC 0-0 (BEAKER) (test code = 413) HIGH SENSITIVITY TROPONIN [id number] 23:11:08 Test Item Value Reference Range Interpretation Comments HIGH SENSITIVITY 5 pg/ml See_Comment [Automated message] TROPONIN I (test code = The system which [id number]) generated this result transmitted ref erence range: <=35. Th e reference range was not used to interpr et this result as normal/abnormal . Talent Sourcing Specialist ID - PIAYA LThe FLOOR COVERER STAT High Sensitivity Troponin-I results should be used in conjunction with other diagnostic information such as ECG, clinical observations and information, and patient symptoms to aid in the diagnosis of CT.POCT-GLUCOSE [id number] 17:44:35 Test Item Value Reference Range Interpretation Comments POC-GLUCOSE METER 284 mg/dL 70-110 H : [facility] ([facility]ER[facility] (test code = [place] [place], 1538) 18076: Talent Sourcing Specialist/Techni pankaj ID = [id number] for ZHENG CHANDLER ANEMIA [id number] 13:50:00 Test Item Value Reference Range Interpretation Comments Vitamin B12 Lvl (test code = Vitamin 857 047-2294 B12 Lvl) [facility] [id number] 13:50:00 Test Item Value Reference Range Interpretation Comments Total CK (test code = Total CK) 77 44-196 [facility] [id number] 13:50:00 Test Item Value Reference Range Interpretation Comments VITAMIN B1 (THIAMINE) WHOLE BLOOD (test 174 78-185 code = VITAMIN B1 (THIAMINE) WHOLE BLOOD) [facility] [id number] 13:50:00 Test Item Value Reference Range Interpretation Comments Vitamin A (test code = Vitamin A) 70 38-98 [facility] C[id number] 13:50:00 Test Item Value Reference Range Interpretation Comments Sed Rate (test code = Sed Rate) 2 [facility] CenterGgsimqqBKHSYSPEAJ8025-77-08 13:50:00 Test Item Value Reference Range Interpretation Comments SONNY (test code = SONNY) NEGATIVE [facility] CenterQwdnyycXZLLWAPOUH5215-13-03 13:50:00 Test Item Value Reference Range Interpretation Comments FLORENCE Ser Interp (test code = FLORENCE SEE COMMENT Ser Interp) [facility] CenterOzrhvlmDBWXHCFPCQ1157-24-08 13:50:00 Test Item Value Reference Range Interpretation Comments CERULOPLASMIN (test code = 23 18-36 CERULOPLASMIN) [facility] CenterVqddqnyRKUCF5744-50-09 13:50:00 Test Item Value Reference Range Interpretation Comments Copper Lvl (test code = Copper Lvl) 85 70-175 [facility] [id number] 13:50:00 Test Item Value Reference Range Interpretation Comments Hgb A1C (test code = Hgb A1C) 8.3 [facility] [id number] 13:50:00 Test Item Value Reference Range Interpretation Comments Vitamin B12 Lvl (test code = Vitamin 235 181-3529 B12 Lvl) [facility] CenterCARDIAC [id number] 13:50:00 Test Item Value Reference Range Interpretation Comments Total CK (test code = Total CK) 77 44-196 [facility]2022-05-12 13:50:00 Test Item Value Reference Range Interpretation Comments VITAMIN B1 (THIAMINE) WHOLE BLOOD (test 174 78-185 code = VITAMIN B1 (THIAMINE) WHOLE BLOOD) [facility] [id number] 13:50:00 Test Item Value Reference Range Interpretation Comments Vitamin A (test code = Vitamin A) 70 38-98 [facility] CenterCemcroySSHXEWKZQZ9231-01-19 13:50:00 Test Item Value Reference Range Interpretation Comments Sed Rate (test code = Sed Rate) 2 [facility] CenterAuljtgkKXMRVYDLMM3607-49-52 13:50:00 Test Item Value Reference Range Interpretation Comments SONNY (test code = SONNY) NEGATIVE [facility] CenterHoqkuehNUEKLXLUKC5165-02-37 13:50:00 Test Item Value Reference Range Interpretation Comments FLORENCE Ser Interp (test code = FLORENCE SEE COMMENT Ser Interp) [facility] CenterDomzcmeDGKMIZJGVP2220-58-16 13:50:00 Test Item Value Reference Range Interpretation Comments CERULOPLASMIN (test code = 23 18-36 CERULOPLASMIN) [facility] HospitalWstitchQENEB5707-27-55 13:50:00 Test Item Value Reference Range Interpretation Comments Copper Lvl (test code = Copper Lvl) 85 70-175 [facility] CenterSPECIAL [id number] 13:50:00 Test Item Value Reference Range Interpretation Comments Hgb A1C (test code = Hgb A1C) 8.3 [facility] [id number] 13:50:00 Test Item Value Reference Range Interpretation Comments Vitamin B12 Lvl (test code = Vitamin 201 440-9333 B12 Lvl) [facility] CenterCARDIAC [id number] 13:50:00 Test Item Value Reference Range Interpretation Comments Total CK (test code = Total CK) 77 44-196 [facility] CenterCHEM [id number] 13:50:00 Test Item Value Reference Range Interpretation Comments VITAMIN B1 (THIAMINE) WHOLE BLOOD (test 174 78-185 code = VITAMIN B1 (THIAMINE) WHOLE BLOOD) [facility] CenterCHEM [id number] 13:50:00 Test Item Value Reference Range Interpretation Comments Vitamin A (test code = Vitamin A) 70 38-98 [facility] CenterPmlpmsiRARAPYTAJU8454-67-95 13:50:00 Test Item Value Reference Range Interpretation Comments Sed Rate (test code = Sed Rate) 2 [facility] CenterMbqauhqBPADJBDLSG7017-12-94 13:50:00 Test Item Value Reference Range Interpretation Comments SONNY (test code = SONNY) NEGATIVE [facility] CenterSgbwmnoWVAQJFBNZZ1361-63-82 13:50:00 Test Item Value Reference Range Interpretation Comments FLORENCE Ser Interp (test code = FLORENCE SEE COMMENT Ser Interp) [facility] CenterEbykzztYWTNWHJYLY9115-93-42 13:50:00 Test Item Value Reference Range Interpretation Comments CERULOPLASMIN (test code = 23 18-36 CERULOPLASMIN) [facility], TXDncqrjrDDRCQ8676-71-62 13:50:00 Test Item Value Reference Range Interpretation Comments Copper Lvl (test code = Copper Lvl) 85 70-175 [facility] [id number] 13:50:00 Test Item Value Reference Range Interpretation Comments Hgb A1C (test code = Hgb A1C) 8.3 [facility]IA [id number] 13:50:00 Test Item Value Reference Range Interpretation Comments Vitamin B12 Lvl (test code = Vitamin 197 211-3315 B12 Lvl) [facility] CenterCARDIAC [id number] 13:50:00 Test Item Value Reference Range Interpretation Comments Total CK (test code = Total CK) 77 44-196 [facility] CenterCHEM [id number] 13:50:00 Test Item Value Reference Range Interpretation Comments VITAMIN B1 (THIAMINE) WHOLE BLOOD (test 174 78-185 code = VITAMIN B1 (THIAMINE) WHOLE BLOOD) [facility] CenterCHEM [id number] 13:50:00 Test Item Value Reference Range Interpretation Comments Vitamin A (test code = Vitamin A) 70 38-98 [facility] CenterHfaatufACAUNGBMGU7335-87-76 13:50:00 Test Item Value Reference Range Interpretation Comments Sed Rate (test code = Sed Rate) 2 [facility] CenterAylgenxPUCBQCNGUQ8717-97-50 13:50:00 Test Item Value Reference Range Interpretation Comments SONNY (test code = SONNY) NEGATIVE [facility] CenterGrpguglUSEKNVRBAF7032-46-11 13:50:00 Test Item Value Reference Range Interpretation Comments FLORENCE Ser Interp (test code = FLORENCE SEE COMMENT Ser Interp) [facility] CenterMcoynljWBMEIPJHPK6655-18-89 13:50:00 Test Item Value Reference Range Interpretation Comments CERULOPLASMIN (test code = 23 18-36 CERULOPLASMIN) [facility] CenterEeazyqoRDTMD1769-60-78 13:50:00 Test Item Value Reference Range Interpretation Comments Copper Lvl (test code = Copper Lvl) 85 70-175 [facility] [id number] 13:50:00 Test Item Value Reference Range Interpretation Comments Hgb A1C (test code = Hgb A1C) 8.3 [facility] CenterGLUCOSE BEDSIDE [id number] 11:06:00 Test Item Value Reference Range Interpretation Comments GLUCOSE BEDSIDE TESTING (test code 311 MG/DL 60-99 HH = GLUBED) GLUCOSE BEDSIDE [id number] 07:08:00 Test Item Value Reference Range Interpretation Comments GLUCOSE BEDSIDE TESTING (test code 255 MG/DL 60-99 H = GLUBED) GLUCOSE BEDSIDE [id number] 19:38:00 Test Item Value Reference Range Interpretation Comments GLUCOSE BEDSIDE TESTING (test code 379 MG/DL 60-99 HH = GLUBED) GLUCOSE BEDSIDE [id number] 15:12:00 Test Item Value Reference Range Interpretation Comments GLUCOSE BEDSIDE TESTING (test code 328 MG/DL 60-99 HH = GLUBED) GLUCOSE BEDSIDE [id number] 11:42:00 Test Item Value Reference Range Interpretation Comments GLUCOSE BEDSIDE TESTING (test code 275 MG/DL 60-99 H = GLUBED) GLUCOSE BEDSIDE [id number] 07:09:00 Test Item Value Reference Range Interpretation Comments GLUCOSE BEDSIDE TESTING (test code 136 MG/DL 60-99 H = GLUBED) GLUCOSE BEDSIDE [id number] 05:17:00 Test Item Value Reference Range Interpretation Comments GLUCOSE BEDSIDE TESTING (test code 227 MG/DL 60-99 H = GLUBED) GLUCOSE BEDSIDE [id number] 19:32:00 Test Item Value Reference Range Interpretation Comments GLUCOSE BEDSIDE TESTING (test code 319 MG/DL 60-99 HH = GLUBED) GLUCOSE BEDSIDE [id number] 17:19:00 Test Item Value Reference Range Interpretation Comments GLUCOSE BEDSIDE TESTING (test code 267 MG/DL 60-99 H = GLUBED) GLUCOSE BEDSIDE [id number] 11:32:00 Test Item Value Reference Range Interpretation Comments GLUCOSE BEDSIDE TESTING (test code 350 MG/DL 60-99 HH = GLUBED) GLUCOSE BEDSIDE [id number] 07:18:00 Test Item Value Reference Range Interpretation Comments GLUCOSE BEDSIDE TESTING (test code 252 MG/DL 60-99 H = GLUBED) BASIC METABOLIC [id number] 00:40:00 Test Item Value Reference Range Interpretation [...] 8.3 MG/DL 8.4-10.2 L CA) CBC W/AUTO [id number] 00:29:00 Test Item Value Reference Range Interpretation [...] 0.00 K/mm3 0.0-0.1 N NRBC#) GLUCOSE BEDSIDE [id number] 07:42:00 Test Item Value Reference Range Interpretation Comments GLUCOSE BEDSIDE TESTING (test code 213 MG/DL 60-99 H = GLUBED) GLUCOSE BEDSIDE [id number] 11:22:00 Test Item Value Reference Range Interpretation Comments GLUCOSE BEDSIDE TESTING (test code 268 MG/DL 60-99 H = GLUBED) GLUCOSE BEDSIDE [id number] 08:39:00 Test Item Value Reference Range Interpretation Comments GLUCOSE BEDSIDE TESTING (test code 216 MG/DL 60-99 H = GLUBED) GLUCOSE BEDSIDE [id number] 15:42:00 Test Item Value Reference Range Interpretation Comments GLUCOSE BEDSIDE TESTING (test code 295 MG/DL 60-99 H = GLUBED) GLUCOSE BEDSIDE [id number] 07:38:00 Test Item Value Reference Range Interpretation Comments GLUCOSE BEDSIDE TESTING (test code 229 MG/DL 60-99 H = GLUBED) BASIC METABOLIC [id number] 04:43:00 Test Item Value Reference Range Interpretation [...] 8.3 MG/DL 8.4-10.2 L CA) CBC W/AUTO [id number] 04:27:00 Test Item Value Reference Range Interpretation [...] = 0.00 K/mm3 0.0-0.1 N NRBC#) DIFFERENTIAL [id number] 04:27:00 Test Item Value Reference Range Interpretation Comments RBC MORPHOLOGY REQUIRED (test code = RBCM) PLATELET ESTIMATE (test code = PLTEST) ADEQUATE PLATELET MORPHOLOGY (test code = NORMAL PLTMORPH) CBC W/AUTO [id number] 04:27:00 Test Item Value Reference Range Interpretation [...] = 0.00 K/mm3 0.0-0.1 N NRBC#) DIFFERENTIAL [id number] 04:27:00 Test Item Value Reference Range Interpretation Comments RBC MORPHOLOGY REQUIRED (test code = RBCM) PLATELET ESTIMATE (test code = PLTEST) ADEQUATE PLATELET MORPHOLOGY (test code = NORMAL PLTMORPH) GLUCOSE BEDSIDE [id number] 20:06:00 Test Item Value Reference Range Interpretation Comments GLUCOSE BEDSIDE TESTING (test code 298 MG/DL 60-99 H = GLUBED) GLUCOSE BEDSIDE [id number] 17:13:00 Test Item Value Reference Range Interpretation Comments GLUCOSE BEDSIDE TESTING (test code 215 MG/DL 60-99 H = GLUBED) GLUCOSE BEDSIDE [id number] 11:39:00 Test Item Value Reference Range Interpretation Comments GLUCOSE BEDSIDE TESTING (test code 247 MG/DL 60-99 H = GLUBED) GLUCOSE BEDSIDE [id number] 08:13:00 Test Item Value Reference Range Interpretation Comments GLUCOSE BEDSIDE TESTING (test code 209 MG/DL 60-99 H = GLUBED) GLUCOSE BEDSIDE [id number] 21:27:00 Test Item Value Reference Range Interpretation Comments GLUCOSE BEDSIDE TESTING (test code 217 MG/DL 60-99 H = GLUBED) GLUCOSE BEDSIDE [id number] 16:26:00 Test Item Value Reference Range Interpretation Comments GLUCOSE BEDSIDE TESTING (test code 205 MG/DL 60-99 H = GLUBED) CBC W/AUTO [id number] 12:18:00 Test Item Value Reference Range Interpretation [...] 0.00 K/mm3 0.0-0.1 N NRBC#) Comments to National Coverage Specialist: USE BLOOD RECENTLY COLLECTED IF POSSIBLEIs this a LINE draw? YGLUCOSE BEDSIDE [id number] 11:33:00 Test Item Value Reference Range Interpretation Comments GLUCOSE BEDSIDE TESTING (test code 235 MG/DL 60-99 H = GLUBED) BASIC METABOLIC [id number] 10:34:00 Test Item Value Reference Range Interpretation [...] code = 8.3 MG/DL 8.4-10.2 L CA) [id number] 10:34:00 Test Item Value Reference Range Interpretation Comments MAGNESIUM (test code = MAG) 1.8 MG/DL 1.6-2.3 N - XR CHEST [id number] 08:38:00 [facility] 1960 Sex: M Patient Name: JUSTICE MARS Unit No: [id number] EXAMS: CPT CODE: [id number] XR CHEST 1V [id number] EXAMINATION: - XR AVGHE5H. LOCATION: B2. HISTORY: COUGH. COMPARISON: Radiograph dated 01/25/2021. TECHNIQUE: Single AP view of the chest was obtained. FINDINGS: Right subclavian line is unchanged in position. The heart is mildly enlarged in size. Left basilar opacities are present, increased since prior exam. Linear atelectasis is seen in the right lung base, unchanged. No new osseous abnormality is identified. IMPRESSION:Interval increase of left basilar opacities, which may represent infiltrates or atelectasis. Mild right basilar atelectasis, unchanged. Mild cardiomegaly. at 0838 Reported and signed by: Manuel Woodward MD CC: Jewels Marcos MD Technologist: Wicho Marvin, RT(R) Transcrpt Date/Tm/Trnsp: 01/26/2021 (0838) t.SDR.PR7 Orig Print D/T: S: 01/26/2021 (0841) [facility] NAME: JUSTICE MARS [id number] [address] PHYS: Johnny Dunn MD [place], [place] [address] : 1960 AGE: 60 SEX: M LOC: Z.SI01 A PHONE #: [phone] EXAM DATE: 01/26/2021 STATUS: ADM IN FAX #: [phone] RADIOLOGY NO: PAGE 1 Signed Report- XR CHEST [id number] 08:38:00 [facility] : 1960 Sex: M Patient Name: JUSTICE MARS Unit No: [id number] EXAMS: CPT CODE: [id number] XR CHEST 1V 70173 EXAMINATION: - XR CHEST 1V. LOCATION: B2. [...] Wicho Marvin, RT(R) Transcrpt Date/Tm/Trnsp: 01/26/2021 (0838) [email or web address] Orig Print D/T: S: 01/26/2021 (0841) [facility] NAME: JUSTICE MARS [id number] [address] PHYS: [place] [address] : 1960 AGE: 60 SEX: M LOC: Waygo[place] PHONE #: [phone] EXAM DATE: 01/26/2021 STATUS: DIS IN FAX #: [phone] RADIOLOGY NO: PAGE 1 Signed ReportGLUCOSE BEDSIDE [id number] 07:30:00 Test Item Value Reference Range Interpretation Comments GLUCOSE BEDSIDE TESTING (test code 179 MG/DL 60-99 H = GLUBED) GLUCOSE BEDSIDE [id number] 20:18:00 Test Item Value Reference Range Interpretation Comments GLUCOSE BEDSIDE TESTING (test code 189 MG/DL 60-99 H = GLUBED) GLUCOSE BEDSIDE [id number] 16:09:00 Test Item Value Reference Range Interpretation Comments GLUCOSE BEDSIDE TESTING (test code 208 MG/DL 60-99 H = GLUBED) POC ARTERIAL BLOOD [id number] 12:10:00 Test Item Value Reference Range Interpretation Comments POC ARTERIAL BLOOD GAS PH 7.346 7.35-7.45 L (test code = POCPHA) POC ARTERIAL BLOOD GAS PCO2 46.2 mmHg 35.0-45.0 H (test code = WYJBPP1P) POC ARTERIAL BLOOD GAS PO2 377.8 75.0-100.0 HH (test code = EOKHV6F) POC HCO3 ARTERIAL (test 25.3 MMOL/L 20.0-26.0 N code = [id number]) POC BASE EXCESS (test code -0.9 MMOL/L [...] 0.7-2.0 N = LACTP) POC ARTERIAL BLOOD [id number] 12:09:00 Test Item Value Reference Range Interpretation Comments POC ARTERIAL BLOOD GAS PH 7.405 7.35-7.45 N (test code = POCPHA) POC ARTERIAL BLOOD GAS PCO2 38.9 mmHg 35.0-45.0 N (test code = QZMXJS0E) POC ARTERIAL BLOOD GAS PO2 362.3 75.0-100.0 HH (test code = JIRSR0F) POC HCO3 ARTERIAL (test 24.4 MMOL/L 20.0-26.0 N code = BPJRRY1E) POC BASE EXCESS (test code -0.3 MMOL/L [...] 0.7-2.0 N = LACTP) POC ARTERIAL BLOOD [id number] 12:09:00 Test Item Value Reference Range Interpretation Comments POC ARTERIAL BLOOD GAS PH 7.335 7.35-7.45 L (test code = POCPHA) POC ARTERIAL BLOOD GAS PCO2 44.9 mmHg 35.0-45.0 N (test code = EWQEHC8S) POC ARTERIAL BLOOD GAS PO2 626.8 75.0-100.0 HH (test code = JQAGL1C) POC HCO3 ARTERIAL (test 24.0 MMOL/L 20.0-26.0 N code = LKSBDM8O) POC BASE EXCESS (test code -1.9 MMOL/L [...] mmol/L 0.7-2.0 N = LACTP) GLUCOSE BEDSIDE [id number] 11:55:00 Test Item Value Reference Range Interpretation Comments GLUCOSE BEDSIDE TESTING (test code 218 MG/DL 60-99 H = GLUBED) GLUCOSE BEDSIDE [id number] 10:19:00 Test Item Value Reference Range Interpretation Comments GLUCOSE BEDSIDE TESTING (test code 170 MG/DL 60-99 H = GLUBED) - XR CHEST [id number] 07:58:00 [facility] : 1960 Sex: M Patient Name: JUSTICE MARS Unit No: [id number] EXAMS: CPT CODE: [id number] XR CHEST 1V 67535 EXAMINATION: - XR CHEST 1V HISTORY: Postop COMPARISON: Chest x-ray performed the previous day LOCATION CODE: C3 FINDINGS: Single frontal view of the chest is submitted for evaluation. Mild linear changes in the mid and lower lungs remain present and are stable in appearance. Cardiomediastinal silhouette and mediastinal contours are stable. Right internal jugular vein central venous catheter is unchanged. Postsurgical changesin the cervical spine and left shoulder are stable. IMPRESSION: No significant change from the priorstudy at 0758 Reported and signed by: Ella Santoro MD CC: Jewels Marcos MD Technologist: Kerry Cerna, RT(R) Transcrpt Date/Tm/Trnsp: 01/25/2021 (0758) [email or web address] Orig Print D/T: S: 01/25/2021 (0801) [facility] NAME: JUSTICE MARS [id number] [address] PHYS: [place] [address] : 1960 AGE: 60 SEX: M LOC: Z.SI01 A PHONE #: [phone] EXAM DATE: 01/25/2021 STATUS: ADM IN FAX #: [phone] RADIOLOGY NO: PAGE 1 Signed Report- XR CHEST 1V 2021-01-25 07:58:00 [facility] : 1960 Sex: M Patient Name: JUSTICE MARS Unit No: [id number] EXAMS: CPT CODE: [id number] XR CHEST 1V [id number] EXAMINATION: - XR CHEST 1V HISTORY: Postop [...] MD CC: Jewels Marcos MD Technologist: Kerry Cerna RT(R) Transcrpt Date/Tm/Trnsp: 01/25/2021 (0758) [id number] Orig Print D/T: S: 01/25/2021 (0801) [facility] NAME: JUSTICE MARS [id number] PHYS: [place] [address] : 1960 AGE: 60 SEX: M LOC: UNK PHONE #: [phone] EXAM DATE: 01/25/2021 STATUS: DIS IN FAX #: [phone] RADIOLOGY NO: PAGE 1 Signed ReportGLUCOSE BEDSIDE TESTING 2021-01-25 07:41:00 Test Item Value Reference Range Interpretation Comments GLUCOSE BEDSIDE TESTING (test code 160 MG/DL 60-99 H = GLUBED) GLUCOSE BEDSIDE [id number] 20:43:00 Test Item Value Reference Range Interpretation Comments GLUCOSE BEDSIDE TESTING (test code 220 MG/DL 60-99 H = GLUBED) GLUCOSE BEDSIDE [id number] 18:00:00 Test Item Value Reference Range Interpretation Comments GLUCOSE BEDSIDE TESTING (test code 135 MG/DL 60-99 H = GLUBED) HEPARIN INDUCED [id number] 14:54:00 Test Item Value Reference Range Interpretation [...] the 4T score an d the 2013 [employer]emat[employer] guidelines. NEG ATIVE results [...] used to int erpret this result as alisha l/abnormal. UNABLE TO DRAW BLOOD, REASON: do in am NOTIFIED PATIENT CARE STAFF: Aicha 01/23/21 AT 1906 BY Gabriella Leonard An- XR CHEST [id number] 10:51:00 [facility] 1960 Sex: M Patient Name: JUSTICE MARS Unit No: [id number] EXAMS: CPT CODE: [id number] XR CHEST 1V 43972 CHEST 1 VIEW: INDICATION: CHEST TUBE REMOVAL [...] left shoulder arthroplasty. IMPRESSION: 1. Linear bibasilar subsegmen real atelectasis. 2. No apparent pneumothorax. at 1051 Reported and signed by: Facundo Jameson MD CC: Isabel Fernandez MD Technologist: Sergio Jacobs (RT) Transcrpt Date/Tm/Trnsp: 01/24/2021 (1051) t.SDR.NB16 Orig Print D/T: S: 01/24/2021 (8806) [facility] NAME: JUSTICE MARS [id number] PHYS: [place] [address] : 1960 AGE: 60 SEX: M LOC: Z.SI01 A PHONE #: [phone] EXAM DATE: 01/24/2021 STATUS: ADM IN FAX #: [phone] RADIOLOGY NO: PAGE 1 Signed Report- XR CHEST [id number] 10:51:00 [facility] : 1960 Sex: M Patient Name: JUSTICE MARS Unit No: [id number] EXAMS: CPT CODE: [id number] XR CHEST 1V 35187 CHEST 1 VIEW: INDICATION: CHEST TUBE REMOVAL COMPARISON: Comparison is made with previous study of 01/24/2021 at 0630 hours Location: C3 A single portable AP view of the chest demonstrates stable 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 A right subclavian line terminates in the SVC. The heart size is mildly enlarged.Linear bibasilar subsegmental atelectasis, unchanged. The upper lung rizzo are grossly clear. No apparent pleural effusion nor pneumothorax. The left chest tube has been removed over the interval. There are postsurgical changes of left shoulder arthroplasty. IMPRESSION: 1. Linear bibasilar subsegmental atelectasis. 2. No apparent pneumothorax. at 1051 Reported and signed by: Facundo Jameson MD CC: Isabel Fernandez MD Technologist: Sergio Jacobs (RT)Transcrpt Date/Tm/Trnsp: 01/24/2021 (1051) t.PRISCILLAR.NB16 Orig Print D/T: S: 01/24/2021 (0338) [facility] NAME: JUSTICE MARS [id number] PHYS: [place] [address] : 1960 AGE: 60 SEX: M LOC: [facility] PHONE #: [phone] EXAM DATE: 01/24/2021 STATUS: DISIN FAX #: [phone] RADIOLOGY NO: PAGE 1 Signed ReportPOC ARTERIAL BLOOD [id number] 07:50:00 Test Item Value Reference Range Interpretation Comments POC ARTERIAL BLOOD GAS PH 7.436 7.35-7.45 N (test code = POCPHA) POC ARTERIAL BLOOD GAS PCO2 30.7 mmHg 35.0-45.0 L (test code = BAWHGN6N) POC ARTERIAL BLOOD GAS PO2 222.7 75.0-100.0 HH (test code = CXKGR3A) POC HCO3 ARTERIAL (test 20.7 MMOL/L 20.0-26.0 N code = CDZIQF1B) POC BASE EXCESS (test code -3.2 MMOL/L -3.0-3.0 L = POCBEA) POC O2 SATURATION (test 99.8 % 92.0-98.5 H code = POCO2S) FIO2 (test code = FIO2A) 80 % 21-100 N PaO2/FiO2 (test code = 278.37 mm/Hg [id number]) SODIUM (test code = NA/ABG) 141 MMOL/L [...] mmol/L 0.7-2.0 HH = LACTP) GLUCOSE BEDSIDE [id number] 07:46:00 Test Item Value Reference Range Interpretation Comments GLUCOSE BEDSIDE TESTING (test code 141 MG/DL 60-99 H = GLUBED) BASIC METABOLIC [id number] 07:26:00 Test Item Value Reference Range Interpretation [...] 8.6 MG/DL 8.4-10.2 N CA) CBC W/AUTO [id number] 07:12:00 Test Item Value Reference Range Interpretation [...] K/mm3 0.0-0.1 N NRBC#) - XR CHEST [id number] 06:52:00 [facility] : 1960 Sex: M Patient Name: JUSTICE MARS Unit No: [id number] EXAMS: CPT CODE: [id number] XR CHEST 1V 14485 EXAM: CHEST ONE VIEW INDICATION: S/P CABG [...] 16 Orig Print D/T: S: 01/24/2021 (0655) [facility] NAME: JUSTICE MARS [id number] PHYS: [place] [address] : 1960 AGE: 60 SEX: M LOC: Z.SI02 A PHONE #: [phone] EXAM DATE: 01/24/2021 STATUS: ADM IN FAX #: [phone] RADIOLOGY NO: PAGE 1 Signed Report- XR CHEST [id number] 06:52:00 [facility] : 1960 Sex: M Patient Name: JUSTICE MARS Unit No: [id number] EXAMS: CPT CODE: [id number] XR CHEST 1V 28592 EXAM: CHEST ONE VIEW INDICATION: S/P CABG [...] Isabel Fernandez MD Technologist: Patric Kruse, RT(R) TranscrptDate/Tm/Trnsp: 01/24/2021 (0652) 16 Orig Print D/T: S: 01/24/2021 (0655) [facility] NAME: JUSTICE MARS [id number] PHYS: [place] [address] : 1960 AGE: 60 SEX: M LOC: UNK PHONE #: [phone] EXAM DATE: 01/24/2021 STATUS: DIS IN FAX #: [phone] RADIOLOGY NO: PAGE 1 Signed ReportGLUCOSE BEDSIDE TESTING 2021-01-24 06:28:00 Test Item Value Reference Range Interpretation Comments GLUCOSE BEDSIDE TESTING (test code 227 MG/DL 60-99 H = GLUBED) GLUCOSE BEDSIDE [id number] 06:28:00 Test Item Value Reference Range Interpretation Comments GLUCOSE BEDSIDE TESTING (test code 246 MG/DL 60-99 H = GLUBED) GLUCOSE BEDSIDE [id number] 06:28:00 Test Item Value Reference Range Interpretation Comments GLUCOSE BEDSIDE TESTING (test code 194 MG/DL 60-99 H = GLUBED) GLUCOSE BEDSIDE [id number] 06:27:00 Test Item Value Reference Range Interpretation Comments GLUCOSE BEDSIDE TESTING (test code 193 MG/DL 60-99 H = GLUBED) GLUCOSE BEDSIDE [id number] 06:27:00 Test Item Value Reference Range Interpretation Comments GLUCOSE BEDSIDE TESTING (test code 217 MG/DL 60-99 H = GLUBED) GLUCOSE BEDSIDE [id number] 06:27:00 Test Item Value Reference Range Interpretation Comments GLUCOSE BEDSIDE TESTING (test code 171 MG/DL 60-99 H = GLUBED) GLUCOSE BEDSIDE [id number] 20:37:00 Test Item Value Reference Range Interpretation Comments GLUCOSE BEDSIDE TESTING (test code 159 MG/DL 60-99 H = GLUBED) - XR CHEST [id number] 07:00:00 [facility] : 1960 Sex: M Patient Name: JUSTICE MARS Unit No: [id number] EXAMS: CPT CODE: [id number] XR CHEST 1V 81945 EXAM: CHEST ONE VIEW INDICATION: S/P CABG LOCATION: B2 COMPARISON: January 22, 2021 TECHNIQUE: AP view of the chest FINDINGS: The right-sided Roug[place]-Jaimie catheter has been removed. The right central [...] 16 Orig Print D/T: S: 01/23/2021 (0703) [facility] NAME: JUSTICE MARS [id number] PHYS: [place] [address] : 1960 AGE: 60 SEX: M LOC: Z.SI02 A PHONE #: [phone] EXAM DATE: 01/23/2021 STATUS: ADM IN FAX #: [phone] RADIOLOGY NO: PAGE 1 Signed Report - XR CHEST [id number] 07:00:00 [facility] : 1960 Sex: M Patient Name: JUSTICE MARS Unit No: [id number] EXAMS: CPT CODE: [id number] XR CHEST 1V 26998 EXAM: CHEST ONE VIEW INDICATION: S/P CABG LOCATION: B2 COMPARISON: January 22, 2021 TECHNIQUE: AP view of the chest FINDINGS: The right-sided Roug[place]-Jaimie catheter has been removed. The right central venous catheter is unchanged. The heart size is enlarged. There is evidence of prior thoracic surgery. There are mild congestive changes bilaterally. No pneumothorax or pleural effusion is identified. The osseous structures are normal. IMPRESSION: Cardiomegaly with mild congestive changes bilaterally. at 0700 Reported and signed by: Omayra Zelaya MD CC: Isabel Fernandez MD Techn ologist: Patric Kruse, RT(R) Transcrpt Date/Tm/Trnsp: 01/23/2021 (0700) JulienMD16 Orig Print D/T: S: 01/23/2021 (0703) [facility] NAME: JUSTICE MARS [id number] PHYS: [place] [address] : 1960 AGE: 60 SEX: M LOC: UNK PHONE #: [phone] EXAM DATE: 01/23/2021 STATUS: DIS IN FAX #: [phone] RADIOLOGY NO: PAGE 1 Signed ReportBASIC METABOLIC [id number] 04:25:00 Test Item Value Reference Range Interpretation [...] 8.1 MG/DL 8.4-10.2 L CA) CBC W/AUTO [id number] 04:01:00 Test Item Value Reference Range Interpretation [...] 0.00 K/mm3 0.0-0.1 N NRBC#) GLUCOSE BEDSIDE [id number] 19:48:00 Test Item Value Reference Range Interpretation Comments GLUCOSE BEDSIDE TESTING (test code 193 MG/DL 60-99 H = GLUBED) GLUCOSE BEDSIDE [id number] 16:43:00 Test Item Value Reference Range Interpretation Comments GLUCOSE BEDSIDE TESTING (test code 103 MG/DL 60-99 H = GLUBED) GLUCOSE BEDSIDE [id number] 15:24:00 Test Item Value Reference Range Interpretation Comments GLUCOSE BEDSIDE TESTING (test code 119 MG/DL 60-99 H = GLUBED) GLUCOSE BEDSIDE [id number] 14:05:00 Test Item Value Reference Range Interpretation Comments GLUCOSE BEDSIDE TESTING (test code 176 MG/DL 60-99 H = GLUBED) GLUCOSE BEDSIDE [id number] 12:55:00 Test Item Value Reference Range Interpretation Comments GLUCOSE BEDSIDE TESTING (test code 195 MG/DL 60-99 H = GLUBED) ARTERIAL BLOOD [id number] 11:56:00 Test Item Value Reference Range Interpretation [...] mated message] code = TEMPA) The system [employer] generated this result transmit quoc reference range : 37. The reference r ana luisa was not used to interpret this result as normal/abnormal . ABG SITE (test code = AL SITEA) ALLENS TEST (test NA CHECK code = ALLENS) FIO2 (test code = 90 % COHBGFFIO2) PaO2/[id number] 11:56:00 Test Item Value Reference Range Interpretation Comments PaO2/FiO2 (test code = KSA8HYY6) mm/Hg ARTERIAL BLOOD [id number] 11:56:00 Test Item Value Reference Range Interpretation [...] mated message] code = TEMPA) The system [employer] generated this result transmit quoc reference range : 37. The reference r ana luisa was not used to interpret this result as normal/abnormal . ABG SITE (test code = AL SITEA) ALLENS TEST (test NA CHECK code = ALLENS) FIO2 (test code = 90 % COHBGFFIO2) PaO2/[id number] 11:56:00 Test Item Value Reference Range Interpretation Comments PaO2/FiO2 (test code = ZBQ7NKZ5) 226.55 mm/Hg GLUCOSE BEDSIDE [id number] 11:43:00 Test Item Value Reference Range Interpretation Comments GLUCOSE BEDSIDE TESTING (test code 211 MG/DL 60-99 H = GLUBED) GLUCOSE BEDSIDE [id number] 10:36:00 Test Item Value Reference Range Interpretation Comments GLUCOSE BEDSIDE TESTING (test code 243 MG/DL 60-99 H = GLUBED) GLUCOSE BEDSIDE [id number] 09:11:00 Test Item Value Reference Range Interpretation Comments GLUCOSE BEDSIDE TESTING (test code 292 MG/DL 60-99 H = GLUBED) GLUCOSE BEDSIDE [id number] 07:54:00 Test Item Value Reference Range Interpretation Comments GLUCOSE BEDSIDE TESTING (test code 238 MG/DL 60-99 H = GLUBED) - XR CHEST [id number] 06:26:00 [facility] : 1960 Sex: M Patient Name: JUSTICE MARS Unit No: [id number] EXAMS: CPT CODE: [id number] XR CHEST 1V 27834 EXAM: CHEST ONE VIEW INDICATION: S/P CABG LOCATION: B2 COMPARISON: January 21, 2021 TECHNIQUE: AP view of the chest FINDINGS: The endotracheal tube and enteric tube have been removed. The right central venous catheter and rightSwan-Jaimie catheter unchanged in position. The heart size is normal. There is evidence of prior thoracic surgery. There are mild congestive changes bilaterally. No pneumothorax or pleural effusion is identified. The osseous structures are normal. IMPRESSION: Stable postoperative chest. Mild parenchymalopacities throughout both lungs. at 0626 * * Reported and signed by: Omayra Zelaya MD CC: Isabel Fernandez MD Technologist: Patric Kruse, RT(R) Transcrpt Date/Tm/Trnsp: 01/22/2021 (625) t.16 Orig Print D/T: S: 01/22/2021 (628) [facility] NAME: JUSTICE MARS [address] PHYS: [place] [address] : 1960 AGE: 60 SEX: M LOC: Z.SI02 A PHONE #: [phone] EXAM DATE: 01/22/2021 STATUS: ADM IN FAX #: [phone] RADIOLOGY NO: PAGE 1 Signed Report- XR CHEST [id number] 06:26:00 [facility] : 1960 Sex: M Patient Name: JUSTICE MARS Unit No: [id number] EXAMS: CPT CODE: [id number] XR CHEST 1V 89736 EXAM: CHEST ONE VIEW INDICATION: S/P CABG LOCATION: B2 COMPARISON: January 21, 2021 TECHNIQUE: AP view of the chest FINDINGS: The endotracheal tube and enteric tube have been removed. The right central venous catheter and right Roug[place]-Jaimie catheter unchanged in position. The heart size [...] Patric Kruse, RT(R) Transcrpt Date/Tm/Trnsp: 01/22/2021 (625) t16 Orig Print D/T: S: 01/22/2021 (628) [facility] NAME: JUSTICE MARS [id number] PHYS: [place] [address] : 1960 AGE: 60 SEX: M LOC: UNK PHONE #: [phone] EXAM DATE: 01/22/2021 STATUS: DISIN FAX #: [phone] RADIOLOGY NO: PAGE 1 Signed ReportGLUCOSE BEDSIDE [id number] 05:56:00 Test Item Value Reference Range Interpretation Comments GLUCOSE BEDSIDE TESTING (test code 212 MG/DL 60-99 H = GLUBED) GLUCOSE BEDSIDE [id number] 05:05:00 Test Item Value Reference Range Interpretation Comments GLUCOSE BEDSIDE TESTING (test code 164 MG/DL 60-99 H = GLUBED) CBC W/AUTO [id number] 05:04:00 Test Item Value Reference Range Interpretation [...] 0.00 K/mm3 0.0-0.1 N NRBC#) BASIC METABOLIC [id number] 05:02:00 Test Item Value Reference Range Interpretation [...] 8.5 MG/DL 8.4-10.2 N CA) GLUCOSE BEDSIDE [id number] 03:14:00 Test Item Value Reference Range Interpretation Comments GLUCOSE BEDSIDE TESTING (test code 218 MG/DL 60-99 H = GLUBED) GLUCOSE BEDSIDE [id number] 02:04:00 Test Item Value Reference Range Interpretation Comments GLUCOSE BEDSIDE TESTING (test code 217 MG/DL 60-99 H = GLUBED) GLUCOSE BEDSIDE [id number] 01:45:00 Test Item Value Reference Range Interpretation Comments GLUCOSE BEDSIDE TESTING (test code 220 MG/DL 60-99 H = GLUBED) GLUCOSE BEDSIDE [id number] 01:12:00 Test Item Value Reference Range Interpretation Comments GLUCOSE BEDSIDE TESTING (test code 223 MG/DL 60-99 H = GLUBED) GLUCOSE BEDSIDE [id number] 23:07:00 Test Item Value Reference Range Interpretation Comments GLUCOSE BEDSIDE TESTING (test code 232 MG/DL 60-99 H = GLUBED) GLUCOSE BEDSIDE [id number] 21:51:00 Test Item Value Reference Range Interpretation Comments GLUCOSE BEDSIDE TESTING (test code 254 MG/DL 60-99 H = GLUBED) BASIC METABOLIC [id number] 21:46:00 Test Item Value Reference Range Interpretation [...] DRAW BLOOD, REASON: CBNNOTIFIED PATIENT CARE STAFF: [facility] 01/21/21 AT 1758 BY Gabriella Leonard AnPROTHROMBIN [id number] 21:40:00 Test Item Value Reference Range Interpretation [...] DRAW BLOOD, REASON: CBNNOTIFIED PATIENT CARE STAFF: [facility] 01/21/21 AT 1758 BY Gabriella Leonard AnPTT [id number] 21:40:00 Test Item Value Reference Range Interpretation Comments PTT ACTIVATED (test code = APTT) 26.1 SECONDS 25.1-36.5 N UNABLE TO DRAW BLOOD, REASON: CBNNOTIFIED PATIENT CARE STAFF: [facility] 01/21/21 AT 1758 BY Gabriella Leonard [id number] 21:38:00 Test Item Value Reference Range Interpretation Comments MAGNESIUM (test code = MAG) 1.5 MG/DL 1.6-2.3 L UNABLE TO DRAW BLOOD, REASON: CBNNOTIFIED PATIENT CARE STAFF: [facility] 01/21/21 AT 1759 BY Gabriella Leonard AnCBC W/AUTO [id number] 21:37:00 Test Item Value Reference Range Interpretation [...] 01/21/21 AT 1759 BY Gabriella LeonardLUCOSE BEDSIDE [id number] 21:05:00 Test Item Value Reference Range Interpretation Comments GLUCOSE BEDSIDE TESTING (test code 227 MG/DL 60-99 H = GLUBED) GLUCOSE BEDSIDE [id number] 19:54:00 Test Item Value Reference Range Interpretation Comments GLUCOSE BEDSIDE TESTING (test code 284 MG/DL 60-99 H = GLUBED) GLUCOSE BEDSIDE [id number] 18:59:00 Test Item Value Reference Range Interpretation Comments GLUCOSE BEDSIDE TESTING (test code 195 MG/DL 60-99 H = GLUBED) - XR CHEST [id number] 18:08:00 [facility] : 1960 Sex: M Patient Name: JUSTICE MARS Unit No: [id number] EXAMS: CPT CODE: [id number] XR CHEST 1V 00445 LOCATION: Q15 HISTORY: 60-year-old male, status post [...] is in the stomach. The right IJ Rougemont-Jaimie catheter tip is in the right main [...] JulienRLA2 Orig Print D/T: S: 01/21/2021 (1810) [facility] NAME: JUSTICE MARS [id number] PHYS: [place] [address] : 1960 AGE: 60 SEX: M : Z.SI02 A PHONE #: [phone] EXAM DATE: 01/21/2021 STATUS: ADM IN FAX #: [phone] RADIOLOGY NO: PAGE 1 Signed Report- XR CHEST [id number] 18:08:00 [facility] : 1960 Sex: M Patient Name: JUSTICE MARS Unit No: [id number] EXAMS: CPT CODE: [id number] XR CHEST 1V 99260 LOCATION: Q15 HISTORY: 60-year-old male, status post [...] is in the stomach. The right IJ Roug[place]ont-Jaimie catheter tip is in the right main [...] JulienRLA2 Orig Print D/T: S: 01/21/2021 (1810) [facility] NAME: JUSTICE MARS [id number] PHYS: [place] [address] : 1960 AGE: 60 SEX: M : UNK PHONE #: [phone] EXAM DATE: 01/21/2021 STATUS: DIS IN FAX #: [phone] RADIOLOGY NO: PAGE 1 Signed ReportPROTHROMBIN [id number] 17:46:00 Test Item Value Reference Range Interpretation [...] syste keshav embolism. 3.0 - 4.5 PTT [id number] 17:46:00 Test Item Value Reference Range Interpretation Comments PTT ACTIVATED (test code = APTT) 25.8 SECONDS 25.1-36.5 N POC ARTERIAL BLOOD [id number] 17:38:00 Test Item Value Reference Range Interpretation Comments POC ARTERIAL BLOOD GAS PH 7.439 7.35-7.45 N (test code = POCPHA) POC ARTERIAL BLOOD GAS PCO2 34.2 mmHg 35.0-45.0 L (test code = LSJZWX9W) POC ARTERIAL BLOOD GAS PO2 215.8 75.0-100.0 HH (test code = KRQXF1U) POC HCO3 ARTERIAL (test 23.2 MMOL/L 20.0-26.0 N code = LPZOJZ1S) POC BASE EXCESS (test code -0.6 MMOL/L -3.0-3.0 N = POCBEA) POC O2 SATURATION (test 99.8 % 92.0-98.5 H code = POCO2S) FIO2 (test code = FIO2A) 80 % 21-100 N PaO2/FiO2 (test code = 269.75 mm/Hg XRI7MIR0) SODIUM (test code = NA/ABG) 146 MMOL/L [...] mmol/L 0.7-2.0 HH = LACTP) BASIC METABOLIC [id number] 17:37:00 Test Item Value Reference Range Interpretation [...] 7.9 MG/DL 8.4-10.2 L CA) CBC W/AUTO [id number] 17:29:00 Test Item Value Reference Range Interpretation [...] K/mm3 0.0-0.1 N NRBC#) POC ARTERIAL BLOOD [id number] 17:04:00 Test Item Value Reference Range Interpretation Comments POC ARTERIAL BLOOD GAS PH 7.300 7.35-7.45 L (test code = POCPHA) POC ARTERIAL BLOOD GAS PCO2 40.6 mmHg 35.0-45.0 N (test code = PROCMW1J) POC ARTERIAL BLOOD GAS PO2 188.1 75.0-100.0 H (test code = VNBTA8C) POC HCO3 ARTERIAL (test 20.0 MMOL/L 20.0-26.0 N code = UUNYFQ4U) POC BASE EXCESS (test code -6.1 MMOL/L -3.0-3.0 L = POCBEA) POC O2 SATURATION (test 99.5 % 92.0-98.5 H code = POCO2S) FIO2 (test code = FIO2A) 80 % 21-100 PaO2/FiO2 (test code = 235.12 mm/Hg OVC0FVE8) SODIUM (test code = NA/ABG) 143 MMOL/L [...] 0.7-2.0 HH = LACTP) POC ARTERIAL BLOOD [id number] 16:07:00 Test Item Value Reference Range Interpretation Comments POC ARTERIAL BLOOD GAS PH 7.302 7.35-7.45 L (test code = POCPHA) POC ARTERIAL BLOOD GAS PCO2 50.0 mmHg 35.0-45.0 H (test code = JUUKPE2C) POC ARTERIAL BLOOD GAS PO2 370.8 75.0-100.0 HH (test code = VWAGJ7E) POC HCO3 ARTERIAL (test 24.7 MMOL/L 20.0-26.0 N code = UHLGYA2Y) POC BASE EXCESS (test code -2.0 MMOL/L -3.0-3.0 N = POCBEA) POC O2 SATURATION (test 99.9 % 92.0-98.5 H code = POCO2S) FIO2 (test code = FIO2A) 90 % 21-100 N PaO2/FiO2 (test code = 412.00 mm/Hg RAW0OSY3) SODIUM (test code = NA/ABG) 139 MMOL/L [...] code 1.93 mmol/L 0.7-2.0 N = LACTP) [id number] 16:01:00 Test Item Value Reference Range Interpretation Comments POTASSIUM (test code = K) 5.9 MMOL/L 3.5-5.1 H [id number] 16:01:00 Test Item Value Reference Range Interpretation Comments GLUCOSE (test code = GLU) 165 MG/DL 74-106 H POC ARTERIAL BLOOD [id number] 15:47:00 Test Item Value Reference Range Interpretation Comments POC ARTERIAL BLOOD GAS PH 7.367 7.35-7.45 N (test code = POCPHA) POC ARTERIAL BLOOD GAS PCO2 45.2 mmHg 35.0-45.0 H (test code = MHPXHJ2T) POC ARTERIAL BLOOD GAS PO2 398.7 75.0-100.0 HH (test code = XKDQN4H) POC HCO3 ARTERIAL (test 25.9 MMOL/L 20.0-26.0 N code = ICRECU3H) POC BASE EXCESS (test code 0.3 MMOL/L -3.0-3.0 N = POCBEA) POC O2 SATURATION (test 100.0 % 92.0-98.5 H code = POCO2S) FIO2 (test code = FIO2A) 90 % 21-100 N PaO2/FiO2 (test code = 443.00 mm/Hg SNW9YXV6) SODIUM (test code = NA/ABG) 138 MMOL/L [...] 1.72 mmol/L 0.7-2.0 N = LACTP) HGB [id number] 15:43:00 Test Item Value Reference Range Interpretation Comments HEMOGLOBIN (test code = HGB) 10.7 G/DL 12.4-16.7 L HEMATOCRIT (test code = HCT) 31.6 % 35.9-49.5 L POC ARTERIAL BLOOD [id number] 15:18:00 Test Item Value Reference Range Interpretation Comments POC ARTERIAL BLOOD GAS PH 7.405 7.35-7.45 N (test code = POCPHA) POC ARTERIAL BLOOD GAS PCO2 38.9 mmHg 35.0-45.0 N (test code = RWETYI4N) POC ARTERIAL BLOOD GAS PO2 362.3 75.0-100.0 HH (test code = KDXDQ5G) POC HCO3 ARTERIAL (test 24.4 MMOL/L 20.0-26.0 N code = YJXYFE1B) POC BASE EXCESS (test code -0.3 MMOL/L -3.0-3.0 N = POCBEA) POC O2 SATURATION (test 100.0 % 92.0-98.5 H code = POCO2S) PaO2/FiO2 (test code = mm/Hg PWV4RSQ0) SODIUM (test code = NA/ABG) 136 MMOL/L [...] code 1.60 mmol/L 0.7-2.0 N = LACTP) [id number] 15:18:00 Test Item Value Reference Range Interpretation Comments POTASSIUM (test code = K) 5.9 MMOL/L 3.5-5.1 H PLEASE CALL RESULTS TO PHONE #: [id number] STAT [id number] 15:18:00 Test Item Value Reference Range Interpretation Comments GLUCOSE (test code = GLU) 187 MG/DL 74-106 H PLEASE CALL RESULTS TO PHONE #: [id number] STAT HGB [id number] 15:01:00 Test Item Value Reference Range Interpretation Comments HEMOGLOBIN (test code = HGB) 10.7 G/DL 12.4-16.7 L HEMATOCRIT (test code = HCT) 32.3 % 35.9-49.5 L PLEASE CALL RESULTS TO PHONE #: [id number] STAT POC ARTERIAL BLOOD GAS 2021-01-21 14:40:00 Test Item Value Reference Range Interpretation Comments POC ARTERIAL BLOOD GAS PH 7.335 7.35-7.45 L (test code = POCPHA) POC ARTERIAL BLOOD GAS PCO2 44.9 mmHg 35.0-45.0 N (test code = [id number]) POC ARTERIAL BLOOD GAS PO2 626.8 75.0-100.0 HH (test code = RXVQR9Z) POC HCO3 ARTERIAL (test 24.0 MMOL/L 20.0-26.0 N code = [id number]) POC BASE EXCESS (test code -1.9 MMOL/L -3.0-3.0 N = POCBEA) POC O2 SATURATION (test 100.0 % 92.0-98.5 H code = POCO2S) PaO2/FiO2 (test code = mm/Hg [id number]) SODIUM (test code = NA/ABG) 133 MMOL/L [...] 0.7-2.0 N = LACTP) POC ARTERIAL BLOOD [id number] 13:35:00 Test Item Value Reference Range Interpretation Comments POC ARTERIAL BLOOD GAS PH 7.346 7.35-7.45 L (test code = POCPHA) POC ARTERIAL BLOOD GAS PCO2 46.2 mmHg 35.0-45.0 H (test code = MVBEXB1J) POC ARTERIAL BLOOD GAS PO2 377.8 75.0-100.0 HH (test code = TFECD7R) POC HCO3 ARTERIAL (test 25.3 MMOL/L 20.0-26.0 N code = [id number]) POC BASE EXCESS (test code -0.9 MMOL/L -3.0-3.0 N = POCBEA) POC O2 SATURATION (test 99.9 % 92.0-98.5 H code = POCO2S) PaO2/FiO2 (test code = mm/Hg [id number]) SODIUM (test code = NA/ABG) 135 MMOL/L [...] mmol/L 0.7-2.0 N = LACTP) BASIC METABOLIC [id number] 12:48:00 Test Item Value Reference Range Interpretation [...] 9.6 MG/DL 8.4-10.2 N CA) CBC W/AUTO [id number] 12:41:00 Test Item Value Reference Range Interpretation [...] 0.00 K/mm3 0.0-0.1 N NRBC#) CHEMISTRY 8 [id number] 12:02:00 Test Item Value Reference Range Interpretation [...] 0.7-2.0 N code = LACTP) CHEMISTRY 8 [id number] 11:50:00 Test Item Value Reference Range Interpretation [...] 0.7-2.0 N code = LACTP) CHEMISTRY 8 [id number] 11:50:00 Test Item Value Reference Range Interpretation [...] code = LACTP) COVID 19 Asymptomatic IH [id number] 09:21:00 Test Item Value Reference Range Interpretation [...] sample." Spec Comments: for surgery todayGLUCOSE BEDSIDE [id number] 07:11:00 Test Item Value Reference Range Interpretation Comments GLUCOSE BEDSIDE TESTING (test code 169 MG/DL 60-99 H = GLUBED) GLUCOSE BEDSIDE [id number] 19:45:00 Test Item Value Reference Range Interpretation Comments GLUCOSE BEDSIDE TESTING (test code 255 MG/DL 60-99 H = GLUBED) GLUCOSE BEDSIDE [id number] 15:35:00 Test Item Value Reference Range Interpretation Comments GLUCOSE BEDSIDE TESTING (test code 115 MG/DL 60-99 H = GLUBED) - XR CHEST [id number] 12:14:00 [facility] 1960 Sex: M Patient Name: JUSTICE MARS Unit No: [id number] EXAMS: CPT CODE: [id number] XR CHEST 1V [id number] EXAMINATION: Frontal chest radiograph INDICATION: Cardiac/heart surgery COMPARISON: None LOCATION: S17 FINDINGS: Clear lungs. No pleural effusion or pneumothorax. Normal cardiomediastinal silhouette. IMPRESSION: No acute abnor mality identified. at 1214 Reported and signed by: Mike Moore MD CC: Sonia FRANCO; Isabel Fernandez MD Technologist: Wicho Marvin, RT(R) Transcrpt Date/Tm/Trnsp: 01/20/2021 (1214) t.SDR.PE1 Orig Print D/T: S: 01/20/2021 (1217) [facility] NAME: JUSTICE MARS [id number] PHYS: [place] [address] : 1960 AGE: 60 SEX: M LOC: [id number].354 A PHONE #: [phone] EXAM DATE: 01/20/2021 STATUS: ADM IN FAX #: [phone] RADIOLOGY NO: PAGE 1 Signed Report- XR CHEST [id number] 12:14:00 [facility] : 1960 Sex: M Patient Name: JUSTICE MARS Unit No: [id number] EXAMS: CPT CODE: [id number] XR CHEST 1V [id number] EXAMINATION: Frontal chest radiograph INDICATION: Cardiac/heart surgery COMPARISON: None LOCATION: S17 FINDINGS: Clear lungs. No pleural effusion or pneumothorax. Normal cardiomediastinal silhouette. IMPRESSION: No acute abno rmality identified. at 1214 Reported and signed by: Mike Moore MD CC: Sonia FRANCO; Isabel Fernandez MD Technologist: Wicho Marvin RT(R) Transcrpt Date/Tm/Trnsp: 01/20/2021 (9954) t.PRISCILLAR.PE1 Orig Print D/T: S: 01/20/2021 (9013) [facility] NAME: JUSTICE MARS [id number] PHYS: [place] [address] : 1960 AGE: 60 SEX: M LOC: UNK PHONE #: [phone] EXAM DATE: 01/20/2021 STATUS: DIS IN FAX #: [phone] RADIOLOGY NO: PAGE 1 Signed ReportHIV 12 AB [id number] 11:53:00 Test Item Value Reference Range Interpretation Comments HIV 1 2 COMBO AG/AB SCREEN AB/AG NON REACTIVE NONREACTIVE (test code = [id number]) GLUCOSE BEDSIDE [id number] 11:45:00 Test Item Value Reference Range Interpretation Comments GLUCOSE BEDSIDE TESTING (test code 204 MG/DL 60-99 H = GLUBED) GLYCOSYLATED HEMOGLOBIN [id number] 11:41:00 Test Item Value Reference Range Interpretation [...] 70-110 H (test code = MBG) PROTHROMBIN [id number] 11:28:00 Test Item Value Reference Range Interpretation [...] syste keshav embolism. 3.0 - 4.5 PTT [id number] 11:28:00 Test Item Value Reference Range Interpretation Comments PTT ACTIVATED (test code = APTT) 45.7 SECONDS 25.1-36.5 H PLT RESPONSE TO [id number] 11:28:00 Test Item Value Reference Range Interpretation [...] had fewer adver se events. COMPREHENSIVE METABOLIC [id number] 11:22:00 Test Item Value Reference Range Interpretation [...] TBil/ 1. 2mg/dl +0.23mg.dl +0.2 0mg/dlBuBc 3.5mg/dl Bu/0. 8mg/dl +0.25mg/dl +0.2 4mg/dlBuBc 7 mg/dl Bu/14.2mg /dl [...] not done in the last 72 hoursPROTHROMBIN [id number] 11:18:00 Test Item Value Reference Range Interpretation Comments PROTHROMBIN TIME PATIENT (test code = 9.5-12.7 PTP) INTERNATIONAL NORMAL RATIO (test code = 0.86-1.14 INR) PTT [id number] 11:18:00 Test Item Value Reference Range Interpretation Comments PTT ACTIVATED (test code = APTT) SECONDS 25.1-36.5 PLT RESPONSE TO [id number] 11:18:00 Test Item Value Reference Range Interpretation Comments PLT RESPONSE TO 228 PRU 194-418 N P2Y12 Result s PLAVIX (test code = Interpre tation: Test PLAVRES) results are in P2Y12 Reaction Units (PRU). Pre-Drug Refere nce Range is 194-418. Pre -drug platelet funct ion estimates the t otal possible platel et [...] had fewer adver se events. COMPREHENSIVE METABOLIC [id number] 11:13:00 Test Item Value Reference Range Interpretation [...] mg/dl Bu/14.2mg /dl +0.38mg/dl +0.2 5mg/dlBuBc 5mg/dl Bc/0mg/ dl +0.25mg/dl +0.1 5mg/dlBuBc 3.5mg/dl Bc/2.8 mg/dl +0.25mg/dl +0.2 3mg/dl SGOT/AST (test 62 UNITS/L 17-59 H code [...] done in the last 72 hoursCBC W/AUTO [id number] 10:54:00 Test Item Value Reference Range Interpretation [...] MG/DL 60-99 H = GLUBED) GLUCOSE BEDSIDE [id number] 19:32:00 Test Item Value Reference Range Interpretation Comments GLUCOSE BEDSIDE TESTING (test code 155 MG/DL 60-99 H = GLUBED) GLUCOSE BEDSIDE [id number] 16:10:00 Test Item Value Reference Range Interpretation Comments GLUCOSE BEDSIDE TESTING (test code 160 MG/DL 60-99 H = GLUBED) GLUCOSE BEDSIDE [id number] 11:45:00 Test Item Value Reference Range Interpretation Comments GLUCOSE BEDSIDE TESTING (test code 183 MG/DL 60-99 H = GLUBED) GLUCOSE BEDSIDE [id number] 08:25:00 Test Item Value Reference Range Interpretation Comments GLUCOSE BEDSIDE TESTING (test code 146 MG/DL 60-99 H = GLUBED) PLT RESPONSE TO [id number] 05:09:00 Test Item Value Reference Range Interpretation [...] had fewer adver se events. GLUCOSE BEDSIDE [id number] 19:11:00 Test Item Value Reference Range Interpretation Comments GLUCOSE BEDSIDE TESTING (test code 156 MG/DL 60-99 H = GLUBED) GLUCOSE BEDSIDE [id number] 16:04:00 Test Item Value Reference Range Interpretation Comments GLUCOSE BEDSIDE TESTING (test code 143 MG/DL 60-99 H = GLUBED) GLUCOSE BEDSIDE [id number] 11:11:00 Test Item Value Reference Range Interpretation Comments GLUCOSE BEDSIDE TESTING (test code 198 MG/DL 60-99 H = GLUBED) GLUCOSE BEDSIDE [id number] 07:49:00 Test Item Value Reference Range Interpretation Comments GLUCOSE BEDSIDE TESTING (test code 162 MG/DL 60-99 H = GLUBED) GLUCOSE BEDSIDE [id number] 19:50:00 Test Item Value Reference Range Interpretation Comments GLUCOSE BEDSIDE TESTING (test code 194 MG/DL 60-99 H = GLUBED) GLUCOSE BEDSIDE [id number] 16:09:00 Test Item Value Reference Range Interpretation Comments GLUCOSE BEDSIDE TESTING (test code 127 MG/DL 60-99 H = GLUBED) GLUCOSE BEDSIDE [id number] 15:44:00 Test Item Value Reference Range Interpretation Comments GLUCOSE BEDSIDE TESTING (test code 136 MG/DL 60-99 H = GLUBED) GLUCOSE BEDSIDE [id number] 11:20:00 Test Item Value Reference Range Interpretation Comments GLUCOSE BEDSIDE TESTING (test code 154 MG/DL 60-99 H = GLUBED) GLUCOSE BEDSIDE [id number] 07:15:00 Test Item Value Reference Range Interpretation Comments GLUCOSE BEDSIDE TESTING (test code 147 MG/DL 60-99 H = GLUBED) GLUCOSE BEDSIDE [id number] 18:56:00 Test Item Value Reference Range Interpretation Comments GLUCOSE BEDSIDE TESTING (test code 208 MG/DL 60-99 H = GLUBED) GLUCOSE BEDSIDE [id number] 15:54:00 Test Item Value Reference Range Interpretation Comments GLUCOSE BEDSIDE TESTING (test code 142 MG/DL 60-99 H = GLUBED) GLUCOSE BEDSIDE [id number] 11:08:00 Test Item Value Reference Range Interpretation Comments GLUCOSE BEDSIDE TESTING (test code 224 MG/DL 60-99 H = GLUBED) GLUCOSE BEDSIDE [id number] 07:28:00 Test Item Value Reference Range Interpretation Comments GLUCOSE BEDSIDE TESTING (test code 156 MG/DL 60-99 H = GLUBED) BASIC METABOLIC [id number] 04:46:00 Test Item Value Reference Range Interpretation [...] 9.1 MG/DL 8.4-10.2 N CA) CBC W/AUTO [id number] 04:27:00 Test Item Value Reference Range Interpretation [...] 0.00 K/mm3 0.0-0.1 N NRBC#) GLUCOSE BEDSIDE [id number] 19:26:00 Test Item Value Reference Range Interpretation Comments GLUCOSE BEDSIDE TESTING (test code 123 MG/DL 60-99 H = GLUBED) GLUCOSE BEDSIDE [id number] 15:35:00 Test Item Value Reference Range Interpretation Comments GLUCOSE BEDSIDE TESTING (test code 185 MG/DL 60-99 H = GLUBED) GLUCOSE BEDSIDE [id number] 10:36:00 Test Item Value Reference Range Interpretation [...] 0-189 mg/dL VERY HIGH.........>/ = 190 mg/dL [id number] 02:58:00 Test Item Value Reference Range Interpretation [...] 0-189 mg/dL VERY HIGH.........>/ = 190 mg/dL [id number] 02:52:00 Test Item Value Reference Range Interpretation Comments TROPONIN-I (test code = TROPI) NG/ML 0.0-0.045 GLYCOSYLATED HEMOGLOBIN [id number] 02:45:00 Test Item Value Reference Range Interpretation [...] LDL (test MG/DL 0-99 code = LDL) [id number] 02:42:00 Test Item Value Reference Range Interpretation Comments TROPONIN-I (test code = TROPI) NG/ML 0.0-0.045 COVID 19 Asymptomatic IH [id number] 00:41:00 Test Item Value Reference Range Interpretation [...] amount of virus (antigen) in the sample." [id number] 23:19:00 Test Item Value Reference Range Interpretation Comments TROPONIN-I (test 0.457 NG/ML 0.012-0.033 HH CALLED TO Laura HARRIS& code = TROPI) READBACK ON AT 2319 BY Luisa Givens [id number] 21:32:00 Test Item Value Reference Range Interpretation Comments TROPONIN-I (test 0.500 NG/ML 0.012-0.033 HH CALLED TO Tere VIZCARRA & code = TROPI) READBACK ON AT 2131 BY Luisa Givens [id number] 21:16:00 Test Item Value Reference Range Interpretation Comments MAGNESIUM (test code = MAG) 2.3 MG/DL 1.6-2.3 N PROTHROMBIN [id number] 21:02:00 Test Item Value Reference Range Interpretation [...] syste keshav embolism. 3.0 - 4.5 PTT [id number] 21:02:00 Test Item Value Reference Range Interpretation Comments PTT ACTIVATED (test code = APTT) 43.5 SECONDS 25.1-36.5 H GLUCOSE BEDSIDE [id number] 19:02:00 Test Item Value Reference Range Interpretation Comments GLUCOSE BEDSIDE TESTING (test code 218 MG/DL 60-99 H = GLUBED) BASIC METABOLIC [id number] 16:18:00 Test Item Value Reference Range Interpretation [...] 9.6 MG/DL 8.4-10.2 N CA) LIPOPROTEIN LDL [id number] 16:18:00 Test Item Value Reference Range Interpretation Comments LIPOPROTEIN LDL DIRECT 66 mg/dL 100-129 L ===== (test code = LDLDIR) ======= ==Refe rence Interval: mg/dL mmol/L--------- ------ ------ ------ --Optimal <100 <2.6Near/above optimal 100-129 2.6-3.3Borderli ne High 130-159 3.4-4.1High 160 -189 4.1-4.9Very Hig h >=190 >=4.9==== ===== This LDL result is a direct measurement.=== ====== [id number] 16:18:00 Test Item Value Reference Range Interpretation Comments TROPONIN-I (test 0.521 NG/ML 0.012-0.033 HH CALLED TO Shiva SAEED & code = TROPI) READBACK ON AT 1545 BY Luisa Givens BASIC METABOLIC [id number] 15:46:00 Test Item Value Reference Range Interpretation [...] 9.6 MG/DL 8.4-10.2 N CA) LIPOPROTEIN LDL [id number] 15:46:00 Test Item Value Reference Range Interpretation Comments LIPOPROTEIN LDL DIRECT (test code = mg/dL 100-129 LDLDIR) [id number] 15:46:00 Test Item Value Reference Range Interpretation Comments TROPONIN-I (test 0.521 NG/ML 0.012-0.033 HH CALLED TO Shiva SAEED & code = TROPI) READBACK ON AT 1545 BY Luisa Givens BASIC METABOLIC [id number] 15:09:00 Test Item Value Reference Range Interpretation [...] code = 9.6 MG/DL 8.4-10.2 N CA) [id number] 15:09:00 Test Item Value Reference Range Interpretation Comments TROPONIN-I (test code = TROPI) NG/ML 0.0-0.045 CBC W/AUTO [id number] 14:46:00 Test Item Value Reference Range Interpretation [...] = 0.00 K/mm3 0.0-0.1 N NRBC#) POCT-GLUCOSE [id number] 08:24:00 Test Item Value Reference Range Interpretation Comments POC-GLUCOSE METER 199 mg/dL 70-110 H TESTED AT [facility] 6720 (BEAKER) (test code = ARRON Vasiliy [place] 2038) [address] BASIC METABOLIC [id number] 04:13:00 Test Item Value Reference Range Interpretation [...] PATIEN TS. CBC W/PLT COUNT & AUTO [id number] 04:00:00 Test Item Value Reference Range Interpretation [...] PERCENT (BEAKER) (test code = 2801) POCT-GLUCOSE [id number] 21:42:00 Test Item Value Reference Range Interpretation Comments POC-GLUCOSE METER 218 mg/dL 70-110 H TESTED AT [facility] 6720 (BEAKER) (test code = ARRON Amanda [facility] 1538) [address] CBC (HEMOGRAM ONLY)2018-10-01 19:29:00 Test Item Value [...] 150-450 code = 756) MEAN PLATELET VOLUME ([facility]) 9.2 fL 9.4-12.4 L (test code = 754) NUCLEATED RED BLOOD CELLS 0 /100 WBC 0-0 ([facility]) (test code = 413) POCT-GLUCOSE [id number] 17:50:00 Test Item Value Reference Range Interpretation Comments POC-GLUCOSE METER 139 mg/dL 70-110 H TESTED AT [place] [address] ([facility]) (test code = ARRON Amanda [facility] 1538) [address] [id number] 16:49:00 Test Item Value Reference Range Interpretation Comments ACTIVATED CLOTTING TIME 114 sec TEST ED AT [place] [address] ([facility]) (test code = [facility] 441) [address] POCT-GLUCOSE [id number] 12:01:00 Test Item Value Reference Range Interpretation Comments POC-GLUCOSE METER 235 mg/dL 70-110 H TESTED AT [place] [address] ([facility]) (test code = [facility] Vasiliy [facility] 1538) [address] HEMOGLOBIN [id number] 09:12:00 Test Item Value Reference Range Interpretation Comments HEMOGLOBIN A1C ([facility]) (test code = 8.5 % 4.3-6.1 H 368) POCT-GLUCOSE [id number] 08:19:00 Test Item Value Reference Range Interpretation Comments POC-GLUCOSE METER 284 mg/dL 70-110 H TESTED AT [place] [address] ([facility]) (test code = [facility] Vasiliy [facility] 1538) [address] TROPONIN [id number] 06:57:00 Test Item Value Reference Range Interpretation Comments TROPONIN I ([facility]) (test code = 1.35 ng/mL [...] failure, acidosis, acute neurological disease, and persistent tachyarrhythmia.[id number] 06:43:00 Test Item Value Reference Range Interpretation Comments PARTIAL THROMBOPLASTIN TIME 57.7 seconds 22.5-36.0 H (GENARO) (test code = 760) TROPONIN [id number] 01:21:00 Test Item Value Reference Range Interpretation Comments TROPONIN I (GENARO) (test code = 1.68 ng/mL 0.00-0.03 397) [...] failure, acidosis, acute neurological disease, and persistent tachyarrhythmia.[id number] 00:50:00 Test Item Value Reference Range Interpretation Comments PARTIAL THROMBOPLASTIN TIME 42.4 seconds 22.5-36.0 H (GENARO) (test code = 760) POCT-GLUCOSE [id number] 21:47:00 Test Item Value Reference Range Interpretation Comments POC-GLUCOSE METER 277 mg/dL 70-110 H TESTED AT [facility] 6720 (GENARO) (test code = ARRON Amanda [facility] 1538) [address] RAD, CHEST, 1 VIEW, NON [id number] 19:55:00Reason for exam:->chest painShould this be performed at the bedside?->YesFINAL REPORT AP view of the chest dated 09/30/2018 COMPARISON: September 17, 2011 CL INICAL INFORMATION: chest pain Comment: Heart is normal in size. Pulmonary vasculature is unremarkable. Lungs are clear. No pulmonary infiltrate or pleural effusion is present. Impression: No active cardiopulmonary disease or interval change. Signed: Prashanth [facility]unterepsaint [facility] Verified Date/Time: 09/30/201819:55:13 Reading Location: [address] Consult Reading Room B-TYPE NATRIURETIC FACTOR (BNP) 2018-09-30 18:03:00 Test Item Value Reference Range Interpretation Comments B-TYPE NATRIURETIC PEPTIDE (GENARO) < pg/mL 0-100 (test code = 700) TROPONIN [id number] 18:00:00 Test Item Value Reference Range Interpretation Comments TROPONIN I (BEAKER) (test code = 0.98 ng/mL 0.00-0.03 397) [...] failure, acidosis, acute neurological disease, and persistent tachyarrhythmia.[id number] 17:46:00 Test Item Value Reference Range Interpretation Comments MAGNESIUM (BEAKER) (test code = 2.0 mg/dL 1.6-2.6 627) COMPREHENSIVE METABOLIC [id number] 17:46:00 Test Item Value Reference Range Interpretation [...] NOT APPLICABLE FOR DIALYSIS PATIEN TS. LIPID [id number] 17:46:00 Test Item Value Reference Range Interpretation [...] 100-129 Borderline 130-159 High 160-189 Very High >=[id number] 17:34:00 Test Item Value Reference Range Interpretation Comments PARTIAL THROMBOPLASTIN TIME 46.0 seconds 22.5-36.0 H (BEAKER) (test code = 760) CBC W/PLT COUNT & AUTO [id number] 17:28:00 Test Item Value Reference Range Interpretation [...] PERCENT (BEAKER) (test code = 2801) POCT-GLUCOSE [id number] 17:20:00 Test Item Value Reference Range Interpretation Comments POC-GLUCOSE METER 212 mg/dL 70-110 H TESTED AT [facility] 6720 (BEAKER) (test code = [place] 1538) [address] [id number] 10:55:00 Test Item Value Reference Range Interpretation Comments TSH (test code = TSH) 0.252 0.360-3.740 [facility]71 10:55:00 Test Item Value Reference Range Interpretation Comments Phosphorus (test code = Phosphorus) 2.8 2.5-4.5 N [facility]QhapeqsRCZMCAJLS2574-76-91 10:55:00 Test Item Value Reference Range Interpretation Comments Magnesium Lvl (test code = Magnesium 1.6 1.8-2.4 L Lvl) [facility]NjppojwDGBRUELKT1985-61-70 10:55:00 Test Item Value Reference Range Interpretation Comments AGAP (test code = AGAP) 15.0 10.0-20.0 N [facility] CenterGrcpguuHDUHZVNGM9655-35-28 10:55:00 Test Item Value Reference Range Interpretation Comments B/C Ratio (test code = B/C Ratio) 10 6-25 N [facility] CenterQqnwwxrSJVGIXFPI8700-92-42 10:55:00 Test Item Value Reference Range Interpretation Comments A/G Ratio (test code = A/G Ratio) 1.1 0.7-1.6 N [facility] CenterNufzmnjMUTWTBRYH2612-02-16 10:55:00 Test Item Value Reference Range Interpretation Comments Globulin (test code = Globulin) 3.1 2.0-4.0 N [facility] CenterZvljgomDKUOAZCYJ9205-93-24 10:55:00 Test Item Value Reference Range Interpretation Comments AST (test code = AST) 107 See_Comment H [Auto mated message] The system which ge nerated this result transmit quoc reference range : <=37. The reference range was not used to interpr et this result as alisha l/abnormal. [facility] CenterGmzzdquYYPYKQTJJ9748-21-40 10:55:00 Test Item Value Reference Range Interpretation Comments Total Protein (test code = Total 6.5 6.4-8.4 N Protein) [facility] CenterVymmifdAFSARNGLL6690-08-50 10:55:00 Test Item Value Reference Range Interpretation Comments Bili Total (test code = Bili Total) 1.0 0.2-1.3 N [facility] CenterUtdcfqtEQHCPCGVC2106-52-77 10:55:00 Test Item Value Reference Range Interpretation Comments BUN (test code = BUN) 10 7-22 N [facility] CenterFzcldgrJGDAHJTCT1222-92-54 10:55:00 Test Item Value Reference Range Interpretation Comments Creatinine Lvl (test code = Creatinine 1.0 0.5-1.4 N Lvl) [facility] CenterFunedcoZEWTZHSSY5763-01-74 10:55:00 Test Item Value Reference Range Interpretation Comments ALT (test code = ALT) 60 See_Comment N [Auto mated message] The system which ge nerated this result transmit quoc reference range : <=65. The reference range was not used to interpr et this result as alisha l/abnormal. [facility] CenterWlqujigHFBGOGFCT9841-98-96 10:55:00 Test Item Value Reference Range Interpretation Comments Albumin Lvl (test code = Albumin Lvl) 3.4 3.5-5.0 L [facility] CenterYxhjgacHOBFRQTBU7395-05-43 10:55:00 Test Item Value Reference Range Interpretation Comments Glucose Lvl (test code = Glucose Lvl) 129 [facility] CenterJcsoxduWNSIBWAJZ0955-66-32 10:55:00 Test Item Value Reference Range Interpretation Comments Alk Phos (test code = Alk Phos) 122 39-136 N [facility] CenterWwtvulxGKOBKUOWR3189-29-07 10:55:00 Test Item Value Reference Range Interpretation Comments Potassium Lvl (test code = Potassium 4.0 3.5-5.1 N Lvl) [facility] CenterQeujgpeRJABYMZUG8974-46-17 10:55:00 Test Item Value Reference Range Interpretation Comments Chloride Lvl (test code = Chloride Lvl) 102 95-109 N [facility] CenterXvtvburWSOLLZEHD2249-72-83 10:55:00 Test Item Value Reference Range Interpretation Comments Sodium Lvl (test code = Sodium Lvl) 137 135-145 N [facility] CenterHjrszutCBJNNNWDT9796-98-31 10:55:00 Test Item Value Reference Range Interpretation Comments CO2 (test code = CO2) 24 24-32 N [facility] CenterGdnhjihBHJLSHDHE1385-37-29 10:55:00 Test Item Value Reference Range Interpretation Comments Calcium Lvl (test code = Calcium Lvl) 8.3 8.5-10.5 L [facility] CenterDntrglsUCTEQBIZK9177-71-07 10:55:00 Test Item Value Reference Range Interpretation Comments GGT (test code = GGT) 297 5-[address] [facility] HospitalNabpmzbOLXLYADFIC6250-77-78 10:55:00 Test Item Value Reference Range Interpretation Comments INR (test code = INR) 1.01 0.85-1.[address] [facility] HospitalZwsguzzZLKYNUAGSZ3162-42-40 10:55:00 Test Item Value Reference Range Interpretation Comments PTT (test code = PTT) 32.0 s 22.9-35.[address] [facility] HospitalIgzpljoVORYZLWOMR2061-53-67 10:55:00 Test Item Value Reference Range Interpretation Comments PT (test code = PT) 13.3 s 12.0-14.[address] [facility] HospitalPhrrnjsQJZUSQSNYA8112-94-16 10:55:00 Test Item Value Reference Range Interpretation Comments Hgb (test code = Hgb) 13.0 14.0-18.[address] [facility] HospitalCyiqgcdZBEMCVKITZ0561-45-66 10:55:00 Test Item Value Reference Range Interpretation Comments MCHC (test code = MCHC) 34.8 32.0-36.[address] [facility] HospitalPnbtzfnIFOUZOAQDJ2408-61-87 10:55:00 Test Item Value Reference Range Interpretation Comments RDW (test code = RDW) 13.9 11.5-14.[address] [facility] HospitalWtgitmxJCNHVKPHXT7025-10-40 10:55:00 Test Item Value Reference Range Interpretation Comments Platelet (test code = Platelet) 199 133-[address] [facility] HospitalYgfwjxiHCEJBBPORV9518-00-79 10:55:00 Test Item Value Reference Range Interpretation Comments MPV (test code = MPV) 7.4 7.4-10.[address] [facility] HospitalAqkrihuXBEGAOUYCK9748-13-14 10:55:00 Test Item Value Reference Range Interpretation Comments Hct (test code = Hct) 37.4 42.0-54.[address] [facility] HospitalPacqtetREGXQMPXFH4418-43-79 10:55:00 Test Item Value Reference Range Interpretation Comments MCV (test code = MCV) 91.3 80.0-94.[address] [facility] HospitalKlzyzdvRFDXSJBWQB9779-50-45 10:55:00 Test Item Value Reference Range Interpretation Comments MCH (test code = MCH) 31.8 pg 27.0-31.[address] [facility] HospitalKidcmniWNMNWWFXNA2884-42-34 10:55:00 Test Item Value Reference Range Interpretation Comments WBC (test code = WBC) 5.2 3.7-10.[address] [facility] HospitalZcokssmSIHAZZMTTD0245-56-90 10:55:00 Test Item Value Reference Range Interpretation Comments RBC (test code = RBC) 4.10 4.70-6.[address] [facility] HospitalOydrlenVXJZONNLEZ5326-40-47 10:55:00 Test Item Value Reference Range Interpretation Comments Basophils # (test code 0.0 See_Comment N [Aut omated message] The = Basophils #) system which generated this result tra nsmitted reference range : <=0.2. The reference r ana luisa was not used to int erpret this result as normal/abnormal . [facility] HospitalIiacekpHIUBGXQYIY9103-17-88 10:55:00 Test Item Value Reference Range Interpretation Comments Eosinophils # (test code 0.1 See_Comment N [A utomated message] The = Eosinophils #) system whic h generated this result tra nsmitted reference range : <=0.5. The reference r ana luisa was not used to int erpret this result as normal/abnormal . [id number] 10:55:00 Test Item Value Reference Range Interpretation Comments Monocytes (test code = Monocytes) 14.4 2.0-12.[address] [facility] [id number] 10:55:00 Test Item Value Reference Range Interpretation Comments Lymphocytes (test code = Lymphocytes) 14.6 20.0-40.[address] [facility] HospitalVacbwgwZWQEYRCKPJ3769-58-17 10:55:00 Test Item Value Reference Range Interpretation Comments Basophils (test code = 0.2 See_Comment N [Aut omated message] The Basophils) system which ge nerated this result tra nsmitted reference range : <=1.0. The reference r ana luisa was not used to int erpret this result as normal/abnormal . [facility] HospitalZkiovwpUNANAETBSL5119-44-33 10:55:00 Test Item Value Reference Range Interpretation Comments Eosinophils (test code = 2.4 See_Comment N [A utomated message] The Eosinophils) system which ge nerated this result tra nsmitted reference range : <=4.0. The reference r ana luisa was not used to int erpret this result as normal/abnormal . [facility] HospitalScfnlirEIJNABJCFA4142-03-30 10:55:00 Test Item Value Reference Range Interpretation Comments Segs-Bands # (test code = Segs-Bands #) 3.6 1.5-8.[address] HospitalMyapiabMAELCDZEVI3899-70-09 10:55:00 Test Item Value Reference Range Interpretation Comments Lymphocytes # (test code = Lymphocytes 0.8 1.0-5.5 L #) [facility] HospitalAcwqkzuQVPBHPOGTW4764-73-65 10:55:00 Test Item Value Reference Range Interpretation Comments Monocytes # (test code 0.7 See_Comment N [Aut omated message] The = Monocytes #) system which generated this result tra nsmitted reference range : <=0.8. The reference r ana luisa was not used to int erpret this result as normal/abnormal . [facility] HospitalLlufrokWORSCJSQIQ1685-24-57 10:55:00 Test Item Value Reference Range Interpretation Comments Segs (test code = Segs) 68.4 45.0-75.0 N [facility] ResourcesRdczvqwAJBGIVDJFE6769-77-99 10:55:00 Test Item Value Reference Range Interpretation Comments Hep A IgM (test code Negative *NA*(10/01/2011 = Hep A IgM) 04:55:00) [facility] ResourcesBrhbzipBRPUNPSYZW9561-57-10 10:55:00 Test Item Value Reference Range Interpretation Comments Hep C Ab (test code = Positive *NA*(10/01/2011 Hep C Ab) 04:55:00) [facility] ResourcesRenknqoJMGLXKNYIJ6652-40-37 10:55:00 Test Item Value Reference Range Interpretation Comments Hep Bs Ag (test code Negative *NA*(10/01/2011 = Hep Bs Ag) 04:55:00) [facility] ResourcesUbmzkdtTCMWFGECPH9746-04-75 10:55:00 Test Item Value Reference Range Interpretation Comments Hep Bs Ab (test code = Hep Bs Ab) 3.6 N [facility] ResourcesOcrohehQZNLRDBWJE3962-57-62 10:55:00 Test Item Value Reference Range Interpretation Comments Hep B Core Ab (test Negative *NA*(10/01/2011 code = Hep B Core Ab) 04:55:00) [facility]KueulssFNGKZFWUI4824-42-50 10:55:00 Test Item Value Reference Range Interpretation Comments TSH (test code = TSH) 0.252 0.360-3.740 L [facility] CenterZyodelaPCUEAJUGH7937-85-01 10:55:00 Test Item Value Reference Range Interpretation Comments Phosphorus (test code = Phosphorus) 2.8 2.5-4.5 N [facility] CenterMpfhosvSTLBVGLCF8541-04-57 10:55:00 Test Item Value Reference Range Interpretation Comments Magnesium Lvl (test code = Magnesium 1.6 1.8-2.4 L Lvl) [facility] CenterPnpqvrnDAPUEGUNZ0275-38-14 10:55:00 Test Item Value Reference Range Interpretation Comments AGAP (test code = AGAP) 15.0 10.0-20.0 N [facility] CenterYuupnjoXEIFATVSF9994-90-40 10:55:00 Test Item Value Reference Range Interpretation Comments B/C Ratio (test code = B/C Ratio) 10 6-25 N [facility] CenterZbyapuiJZOXRGMBX2163-27-23 10:55:00 Test Item Value Reference Range Interpretation Comments A/G Ratio (test code = A/G Ratio) 1.1 0.7-1.6 N [facility] CenterYuexxssEVZSIPGOR6147-18-23 10:55:00 Test Item Value Reference Range Interpretation Comments Globulin (test code = Globulin) 3.1 2.0-4.0 N [facility] CenterArygisuIYGFDLGII7650-81-71 10:55:00 Test Item Value Reference Range Interpretation Comments AST (test code = AST) 107 See_Comment H [Auto mated message] The system which ge nerated this result transmit quoc reference range : <=37. The reference range was not used to interpr et this result as alisha l/abnormal. [facility] CenterKdokxsqDNIDEGIHL0829-14-99 10:55:00 Test Item Value Reference Range Interpretation Comments Total Protein (test code = Total 6.5 6.4-8.4 N Protein) [facility] CenterBgdfkvlCOQTFEEFQ4007-82-63 10:55:00 Test Item Value Reference Range Interpretation Comments Bili Total (test code = Bili Total) 1.0 0.2-1.3 N [facility] CenterMnvejawQELBSQFIT3866-07-67 10:55:00 Test Item Value Reference Range Interpretation Comments BUN (test code = BUN) 10 7-22 N [facility] CenterUzythtrUEOIGRFDF0592-34-82 10:55:00 Test Item Value Reference Range Interpretation Comments Creatinine Lvl (test code = Creatinine 1.0 0.5-1.4 N Lvl) [facility] CenterVigttsoKMPNQBAHM5270-23-41 10:55:00 Test Item Value Reference Range Interpretation Comments ALT (test code = ALT) 60 See_Comment N [Auto mated message] The system which ge nerated this result transmit quoc reference range : <=65. The reference range was not used to interpr et this result as alisha l/abnormal. [facility] CenterGoelehvJXEZDPYBY2115-59-89 10:55:00 Test Item Value Reference Range Interpretation Comments Albumin Lvl (test code = Albumin Lvl) 3.4 3.5-5.0 L [facility] CenterBydlsqxMPEEXABXR2347-98-41 10:55:00 Test Item Value Reference Range Interpretation Comments Glucose Lvl (test code = Glucose Lvl) 129 [facility] CenterNmalnbgFUYMNTRQS1847-00-90 10:55:00 Test Item Value Reference Range Interpretation Comments Alk Phos (test code = Alk Phos) 122 39-136 N [facility] CenterGumspkoIKTQFCYDB5679-64-80 10:55:00 Test Item Value Reference Range Interpretation Comments Potassium Lvl (test code = Potassium 4.0 3.5-5.1 N Lvl) [facility] CenterQbgqeblACFQIPZID3280-96-54 10:55:00 Test Item Value Reference Range Interpretation Comments Chloride Lvl (test code = Chloride Lvl) 102 95-109 N [facility] CenterWlfbrhkUOROGIIFM3903-97-13 10:55:00 Test Item Value Reference Range Interpretation Comments Sodium Lvl (test code = Sodium Lvl) 137 135-145 N [facility] CenterDusciahFZOEOOMFE8583-92-21 10:55:00 Test Item Value Reference Range Interpretation Comments CO2 (test code = CO2) 24 24-32 N [facility] CenterEyjojpsRPNIKBGSU6141-97-36 10:55:00 Test Item Value Reference Range Interpretation Comments Calcium Lvl (test code = Calcium Lvl) 8.3 8.5-10.5 L [facility] CenterMplvkvjSLUDGRILF5484-55-06 10:55:00 Test Item Value Reference Range Interpretation Comments GGT (test code = GGT) 297 5-[address] [facility] HospitalDcnroceGAPEMDUEUQ2335-85-87 10:55:00 Test Item Value Reference Range Interpretation Comments INR (test code = INR) 1.01 0.85-1.[address] [facility] HospitalTvgcgxsXCQQFHKLBE4950-68-15 10:55:00 Test Item Value Reference Range Interpretation Comments PTT (test code = PTT) 32.0 s 22.9-35.[address] [facility] HospitalJapotctTARKTDDKAE2001-21-91 10:55:00 Test Item Value Reference Range Interpretation Comments PT (test code = PT) 13.3 s 12.0-14.[address] HospitalHlqepvmMZPWDWQVGL2825-65-84 10:55:00 Test Item Value Reference Range Interpretation Comments Hgb (test code = Hgb) 13.0 14.0-18.[address] [facility] HospitalJrsdddrTDIEMQWOOM3790-23-85 10:55:00 Test Item Value Reference Range Interpretation Comments MCHC (test code = MCHC) 34.8 32.0-36.[address] HospitalEsvfogoYBQLBNAWJO2759-97-23 10:55:00 Test Item Value Reference Range Interpretation Comments RDW (test code = RDW) 13.9 11.5-14.[address] HospitalYedqlgqKFANLDHGAV8377-01-38 10:55:00 Test Item Value Reference Range Interpretation Comments Platelet (test code = Platelet) 199 133-[address] HospitalZauleuyNXMLTNZDQM6352-73-82 10:55:00 Test Item Value Reference Range Interpretation Comments MPV (test code = MPV) 7.4 7.4-10.[address] HospitalQliopmeWCJKNXJSVP7617-04-75 10:55:00 Test Item Value Reference Range Interpretation Comments Hct (test code = Hct) 37.4 42.0-54.[address] [facility] HospitalVjjxoxlXRDESCMRMX0600-08-92 10:55:00 Test Item Value Reference Range Interpretation Comments MCV (test code = MCV) 91.3 80.0-94.[address] HospitalHsbyywwJFFVZIDIHY4127-02-72 10:55:00 Test Item Value Reference Range Interpretation Comments MCH (test code = MCH) 31.8 pg 27.0-31.[address] HospitalTlsnuvfWYPAEBQCWX6753-06-31 10:55:00 Test Item Value Reference Range Interpretation Comments WBC (test code = WBC) 5.2 3.7-10.[address] HospitalXxcjkzlHKXWNFVZDR3415-00-34 10:55:00 Test Item Value Reference Range Interpretation Comments RBC (test code = RBC) 4.10 4.70-6.[address] [facility] HospitalYgxwtjzPTJLUJTZUQ2357-21-23 10:55:00 Test Item Value Reference Range Interpretation Comments Basophils # (test code 0.0 See_Comment N [Aut omated message] The = Basophils #) system which generated this result tra nsmitted reference range : <=0.2. The reference r ana luisa was not used to int erpret this result as normal/abnormal . [facility] HospitalBbaypvoYKBQZBKHHQ9386-39-72 10:55:00 Test Item Value Reference Range Interpretation Comments Eosinophils # (test code 0.1 See_Comment N [A utomated message] The = Eosinophils #) system whic h generated this result tra nsmitted reference range : <=0.5. The reference r ana luisa was not used to int erpret this result as normal/abnormal . [facility] HospitalCldwhimMSRZDEKYBZ5720-31-61 10:55:00 Test Item Value Reference Range Interpretation Comments Monocytes (test code = Monocytes) 14.4 2.0-12.[address] [facility] HospitalJlmigocDBGRRFPKVB2933-58-95 10:55:00 Test Item Value Reference Range Interpretation Comments Lymphocytes (test code = Lymphocytes) 14.6 20.0-40.[address] HospitalNxamzpvCMNUCXYZFJ3125-71-61 10:55:00 Test Item Value Reference Range Interpretation Comments Basophils (test code = 0.2 See_Comment N [Aut omated message] The Basophils) system which ge nerated this result tra nsmitted reference range : <=1.0. The reference r ana luisa was not used to int erpret this result as normal/abnormal . [facility] HospitalTtfbtpgHMIPEDRMQV7683-39-60 10:55:00 Test Item Value Reference Range Interpretation Comments Eosinophils (test code = 2.4 See_Comment N [A utomated message] The Eosinophils) system which ge nerated this result tra nsmitted reference range : <=4.0. The reference r ana luisa was not used to int erpret this result as normal/abnormal . [facility] HospitalEmyydbwBXWVYRTKBJ8361-04-43 10:55:00 Test Item Value Reference Range Interpretation Comments Segs-Bands # (test code = Segs-Bands #) 3.6 1.5-8.[address] HospitalZyprizyZHVRBRUNAY0139-62-65 10:55:00 Test Item Value Reference Range Interpretation Comments Lymphocytes # (test code = Lymphocytes 0.8 1.0-5.5 L #) [facility] HospitalTygurenZUXNIMHTYI9463-15-83 10:55:00 Test Item Value Reference Range Interpretation Comments Monocytes # (test code 0.7 See_Comment N [Aut omated message] The = Monocytes #) system which generated this result tra nsmitted reference range : <=0.8. The reference r ana luisa was not used to int erpret this result as normal/abnormal . [facility] HospitalTkfpnkpBKSSCQGILW1038-46-38 10:55:00 Test Item Value Reference Range Interpretation Comments Segs (test code = Segs) 68.4 45.0-75.0 N [facility]HvcfrvxKPLLLIKSMR8383-15-14 10:55:00 Test Item Value Reference Range Interpretation Comments Hep A IgM (test code Negative *NA*(10/01/2011 = Hep A IgM) 04:55:00) [facility] ResourcesZktktlvHFGPSTOHXC7262-13-69 10:55:00 Test Item Value Reference Range Interpretation Comments Hep C Ab (test code = Positive *NA*(10/01/2011 Hep C Ab) 04:55:00) [facility]NnuohqzUNZYAPGISL5564-40-06 10:55:00 Test Item Value Reference Range Interpretation Comments Hep Bs Ag (test code Negative *NA*(10/01/2011 = Hep Bs Ag) 04:55:00) [facility]MbsxfscPAGETAUAAM8064-06-88 10:55:00 Test Item Value Reference Range Interpretation Comments Hep Bs Ab (test code = Hep Bs Ab) 3.6 N [facility] ResourcesZephlcnQYCYGVSKVM7603-73-82 10:55:00 Test Item Value Reference Range Interpretation Comments Hep B Core Ab (test Negative *NA*(10/01/2011 code = Hep B Core Ab) 04:55:00) [facility] CenterZabnqqvVKALTWWMB8324-10-71 10:55:00 Test Item Value Reference Range Interpretation Comments TSH (test code = TSH) 0.252 0.360-3.740 L [facility] CenterWwdbknzJUXACOVYD9017-82-09 10:55:00 Test Item Value Reference Range Interpretation Comments Phosphorus (test code = Phosphorus) 2.8 2.5-4.5 N [facility] CenterBjfzaqmFIMAUSVTU7220-99-81 10:55:00 Test Item Value Reference Range Interpretation Comments Magnesium Lvl (test code = Magnesium 1.6 1.8-2.4 L Lvl) [facility] CenterMwkszwmTIVIGGVOI0152-82-81 10:55:00 Test Item Value Reference Range Interpretation Comments AGAP (test code = AGAP) 15.0 10.0-20.0 N [facility] CenterKfatbuoDWXTWYYJZ5009-03-36 10:55:00 Test Item Value Reference Range Interpretation Comments B/C Ratio (test code = B/C Ratio) 10 6-25 N [facility] CenterDwekgfxANGCVFUGE0763-14-45 10:55:00 Test Item Value Reference Range Interpretation Comments A/G Ratio (test code = A/G Ratio) 1.1 0.7-1.6 N [facility] CenterClolbgiTQGHMBSYY9324-24-13 10:55:00 Test Item Value Reference Range Interpretation Comments Globulin (test code = Globulin) 3.1 2.0-4.0 N [facility] CenterRungrjgCANFPDROE7007-43-19 10:55:00 Test Item Value Reference Range Interpretation Comments AST (test code = AST) 107 See_Comment H [Auto mated message] The system which ge nerated this result transmit quoc reference range : <=37. The reference range was not used to interpr et this result as alisha l/abnormal. [facility] CenterYeikmleEBSAMIVSB6748-85-02 10:55:00 Test Item Value Reference Range Interpretation Comments Total Protein (test code = Total 6.5 6.4-8.4 N Protein) [facility] CenterNfbqidmQABLKERVM8437-76-17 10:55:00 Test Item Value Reference Range Interpretation Comments Bili Total (test code = Bili Total) 1.0 0.2-1.3 N [facility] CenterOgfrqftSXJNYSCJY0124-91-99 10:55:00 Test Item Value Reference Range Interpretation Comments BUN (test code = BUN) 10 7-22 N [facility] CenterXrecemyYRTGJLALA7692-50-11 10:55:00 Test Item Value Reference Range Interpretation Comments Creatinine Lvl (test code = Creatinine 1.0 0.5-1.4 N Lvl) [facility] CenterRkpmmmeJLLIQBGKM2472-19-82 10:55:00 Test Item Value Reference Range Interpretation Comments ALT (test code = ALT) 60 See_Comment N [Auto mated message] The system which ge nerated this result transmit quoc reference range : <=65. The reference range was not used to interpr et this result as alisha l/abnormal. [facility] CenterOmqgxdbOLTVMRHJW7843-00-37 10:55:00 Test Item Value Reference Range Interpretation Comments Albumin Lvl (test code = Albumin Lvl) 3.4 3.5-5.0 L [facility] CenterIbszcjjWTADASRWD4927-53-13 10:55:00 Test Item Value Reference Range Interpretation Comments Glucose Lvl (test code = Glucose Lvl) 129 [facility] CenterGqcudjoNBLCPBHRL4491-76-89 10:55:00 Test Item Value Reference Range Interpretation Comments Alk Phos (test code = Alk Phos) 122 39-136 N [facility] CenterArrageyQRGQYRFMQ5357-70-77 10:55:00 Test Item Value Reference Range Interpretation Comments Potassium Lvl (test code = Potassium 4.0 3.5-5.1 N Lvl) [facility] CenterIilujqtYTWIVIUIY3078-55-51 10:55:00 Test Item Value Reference Range Interpretation Comments Chloride Lvl (test code = Chloride Lvl) 102 95-109 N [facility] CenterOboqnhhGWAUHSXQY3298-89-31 10:55:00 Test Item Value Reference Range Interpretation Comments Sodium Lvl (test code = Sodium Lvl) 137 135-145 N [facility] CenterIpwabwlAXQLLVFKS7897-27-36 10:55:00 Test Item Value Reference Range Interpretation Comments CO2 (test code = CO2) 24 24-32 N [facility] CenterVeeeliaPEWCYDQLN5979-34-81 10:55:00 Test Item Value Reference Range Interpretation Comments Calcium Lvl (test code = Calcium Lvl) 8.3 8.5-10.5 L [facility] CenterDjkymhyAGKZEWXMY3011-56-87 10:55:00 Test Item Value Reference Range Interpretation Comments GGT (test code = GGT) 297 5-[address] HospitalUykvcvgTMZUVBXBYO9685-88-66 10:55:00 Test Item Value Reference Range Interpretation Comments INR (test code = INR) 1.01 0.85-1.[address] HospitalCfczlviXUCGJKOFWO3779-90-29 10:55:00 Test Item Value Reference Range Interpretation Comments PTT (test code = PTT) 32.0 s 22.9-35.[address] HospitalFfbzrecQSQBHVYSFS4461-29-81 10:55:00 Test Item Value Reference Range Interpretation Comments PT (test code = PT) 13.3 s 12.0-14.[address] HospitalEtjxwbtMEJWHVBZYR0066-45-79 10:55:00 Test Item Value Reference Range Interpretation Comments Hgb (test code = Hgb) 13.0 14.0-18.[address] HospitalUwjugvbQRWLJYWQUW5433-32-97 10:55:00 Test Item Value Reference Range Interpretation Comments MCHC (test code = MCHC) 34.8 32.0-36.[address] HospitalEklilruEXNEMYIGWM1050-69-49 10:55:00 Test Item Value Reference Range Interpretation Comments RDW (test code = RDW) 13.9 11.5-14.[address] HospitalIwsgabeYKTAKHGJTR2238-10-24 10:55:00 Test Item Value Reference Range Interpretation Comments Platelet (test code = Platelet) 199 133-[address] [facility] HospitalUodfcarWBOHTSNFQV1774-22-04 10:55:00 Test Item Value Reference Range Interpretation Comments MPV (test code = MPV) 7.4 7.4-10.[address] HospitalHswujqjOVVTJSQIBY5074-73-25 10:55:00 Test Item Value Reference Range Interpretation Comments Hct (test code = Hct) 37.4 42.0-54.[address] HospitalGgjhoayAZLEAXYNEA6568-83-73 10:55:00 Test Item Value Reference Range Interpretation Comments MCV (test code = MCV) 91.3 80.0-94.[address] HospitalHcgyjsyRJFPFUTJFN0374-33-64 10:55:00 Test Item Value Reference Range Interpretation Comments MCH (test code = MCH) 31.8 pg 27.0-31.[address] HospitalKoaepotYVCOEIPOPT0297-04-88 10:55:00 Test Item Value Reference Range Interpretation Comments WBC (test code = WBC) 5.2 3.7-10.[address] HospitalXiybujcUVRGSOYIHW9101-68-56 10:55:00 Test Item Value Reference Range Interpretation Comments RBC (test code = RBC) 4.10 4.70-6.[address] HospitalObpcdvtPYOIVYXEII1323-94-86 10:55:00 Test Item Value Reference Range Interpretation Comments Basophils # (test code 0.0 See_Comment N [Aut omated message] The = Basophils #) system which generated this result tra nsmitted reference range : <=0.2. The reference r ana luisa was not used to int erpret this result as normal/abnormal . [facility] HospitalXuejfwzZVALKQWBIT9660-89-66 10:55:00 Test Item Value Reference Range Interpretation Comments Eosinophils # (test code 0.1 See_Comment N [A utomated message] The = Eosinophils #) system whic h generated this result tra nsmitted reference range : <=0.5. The reference r ana luisa was not used to int erpret this result as normal/abnormal . [facility] HospitalIehdectCFTJZSXGEF5275-12-87 10:55:00 Test Item Value Reference Range Interpretation Comments Monocytes (test code = Monocytes) 14.4 2.0-12.[address] HospitalMsopwgfFZIFZLWEYM9984-67-65 10:55:00 Test Item Value Reference Range Interpretation Comments Lymphocytes (test code = Lymphocytes) 14.6 20.0-40.[address] HospitalBecmzqwHASUPAVBAE8708-72-87 10:55:00 Test Item Value Reference Range Interpretation Comments Basophils (test code = 0.2 See_Comment N [Aut omated message] The Basophils) system which ge nerated this result tra nsmitted reference range : <=1.0. The reference r ana luisa was not used to int erpret this result as normal/abnormal . [facility] HospitalIzsvpijBWWDTMZWOY2330-12-93 10:55:00 Test Item Value Reference Range Interpretation Comments Eosinophils (test code = 2.4 See_Comment N [A utomated message] The Eosinophils) system which ge nerated this result tra nsmitted reference range : <=4.0. The reference r ana luisa was not used to int erpret this result as normal/abnormal . [facility] HospitalLhensygTXHDTPXEMN6232-14-27 10:55:00 Test Item Value Reference Range Interpretation Comments Segs-Bands # (test code = Segs-Bands #) 3.6 1.5-8.[address] HospitalKjykqduLTVUNCNGXL0311-34-31 10:55:00 Test Item Value Reference Range Interpretation Comments Lymphocytes # (test code = Lymphocytes 0.8 1.0-5.5 L #) [facility] HospitalGkvnxooZHOWMUOBUC6039-42-67 10:55:00 Test Item Value Reference Range Interpretation Comments Monocytes # (test code 0.7 See_Comment N [Aut omated message] The = Monocytes #) system which generated this result tra nsmitted reference range : <=0.8. The reference r ana luisa was not used to int erpret this result as normal/abnormal . [facility] HospitalRrnezbrYVWHNNCRPQ0858-71-16 10:55:00 Test Item Value Reference Range Interpretation Comments Segs (test code = Segs) 68.4 45.0-75.0 N [facility]EcdrgpqMNUYMMMCYI7772-57-32 10:55:00 Test Item Value Reference Range Interpretation Comments Hep A IgM (test code Negative *NA*(10/01/2011 = Hep A IgM) 04:55:00) [facility]PxhirttOVSVBSDXNJ3810-79-37 10:55:00 Test Item Value Reference Range Interpretation Comments Hep C Ab (test code = Positive *NA*(10/01/2011 Hep C Ab) 04:55:00) [facility]EkgqipkZSVNJCYXPO2860-00-16 10:55:00 Test Item Value Reference Range Interpretation Comments Hep Bs Ag (test code Negative *NA*(10/01/2011 = Hep Bs Ag) 04:55:00) [facility]AfocnybBBPSNATOTO7546-60-91 10:55:00 Test Item Value Reference Range Interpretation Comments Hep Bs Ab (test code = Hep Bs Ab) 3.6 N [facility] ResourcesQxdkvmtPURCDREHCQ9723-14-20 10:55:00 Test Item Value Reference Range Interpretation Comments Hep B Core Ab (test Negative *NA*(10/01/2011 code = Hep B Core Ab) 04:55:00) [facility] CenterPnrbciaLCYIEXBCZ0597-54-33 10:55:00 Test Item Value Reference Range Interpretation Comments TSH (test code = TSH) 0.252 0.360-3.740 L [facility] CenterAwslbrvEZWRCOMQV0958-69-00 10:55:00 Test Item Value Reference Range Interpretation Comments Phosphorus (test code = Phosphorus) 2.8 2.5-4.5 N [facility] CenterCrzblhoPZCUMIJRJ4175-74-35 10:55:00 Test Item Value Reference Range Interpretation Comments Magnesium Lvl (test code = Magnesium 1.6 1.8-2.4 L Lvl) [facility] CenterObslqkhRSLGYETVV1141-59-33 10:55:00 Test Item Value Reference Range Interpretation Comments AGAP (test code = AGAP) 15.0 10.0-20.0 N [facility] CenterOiuarpqYNZCAWVDG0039-06-57 10:55:00 Test Item Value Reference Range Interpretation Comments B/C Ratio (test code = B/C Ratio) 10 6-25 N [facility] CenterAtcjefyBNMWROMWR4563-62-69 10:55:00 Test Item Value Reference Range Interpretation Comments A/G Ratio (test code = A/G Ratio) 1.1 0.7-1.6 N [facility] CenterBkzuoytZYPUNKADQ5603-59-27 10:55:00 Test Item Value Reference Range Interpretation Comments Globulin (test code = Globulin) 3.1 2.0-4.0 N [facility] CenterNqettjkJQLPERWSK5935-91-57 10:55:00 Test Item Value Reference Range Interpretation Comments AST (test code = AST) 107 See_Comment H [Auto mated message] The system which ge nerated this result transmit quoc reference range : <=37. The reference range was not used to interpr et this result as alisha l/abnormal. [facility] CenterBeawpswRORLUEDLW4455-24-14 10:55:00 Test Item Value Reference Range Interpretation Comments Total Protein (test code = Total 6.5 6.4-8.4 N Protein) [facility] CenterIfxeytsGLHXGOZUP2268-23-02 10:55:00 Test Item Value Reference Range Interpretation Comments Bili Total (test code = Bili Total) 1.0 0.2-1.3 N [facility] CenterRobvfknKYKPOKYYX3313-05-42 10:55:00 Test Item Value Reference Range Interpretation Comments BUN (test code = BUN) 10 7-22 N [facility] CenterImbttyzZUXZDREFG6169-47-71 10:55:00 Test Item Value Reference Range Interpretation Comments Creatinine Lvl (test code = Creatinine 1.0 0.5-1.4 N Lvl) [facility] CenterMxbuuvrNDQNWBVSW4026-25-22 10:55:00 Test Item Value Reference Range Interpretation Comments ALT (test code = ALT) 60 See_Comment N [Auto mated message] The system which ge nerated this result transmit quoc reference range : <=65. The reference range was not used to interpr et this result as alisha l/abnormal. [facility] CenterMplbmzaULKJPSHCX3402-91-18 10:55:00 Test Item Value Reference Range Interpretation Comments Albumin Lvl (test code = Albumin Lvl) 3.4 3.5-5.0 L [facility] CenterRbibvpfNOFYRTPGD1037-59-51 10:55:00 Test Item Value Reference Range Interpretation Comments Glucose Lvl (test code = Glucose Lvl) 129 [facility] CenterDvioccyTAPUPFRNF8016-05-08 10:55:00 Test Item Value Reference Range Interpretation Comments Alk Phos (test code = Alk Phos) 122 39-136 N [facility] CenterPaafakuYSBNXGMRO5259-34-79 10:55:00 Test Item Value Reference Range Interpretation Comments Potassium Lvl (test code = Potassium 4.0 3.5-5.1 N Lvl) [facility] CenterQvaavigHUYKATRNN1124-99-32 10:55:00 Test Item Value Reference Range Interpretation Comments Chloride Lvl (test code = Chloride Lvl) 102 95-109 N [facility] CenterQmevdjqLCHEOJNIY3500-99-49 10:55:00 Test Item Value Reference Range Interpretation Comments Sodium Lvl (test code = Sodium Lvl) 137 135-145 N [facility] CenterLiifbpvQIVRAMSCF9131-12-07 10:55:00 Test Item Value Reference Range Interpretation Comments CO2 (test code = CO2) 24 24-32 N [facility] CenterJkjeqhmSHUTEKFQJ1518-31-86 10:55:00 Test Item Value Reference Range Interpretation Comments Calcium Lvl (test code = Calcium Lvl) 8.3 8.5-10.5 L [facility] CenterPpjyvghHUJNRBUUM3649-61-00 10:55:00 Test Item Value Reference Range Interpretation Comments GGT (test code = GGT) 297 5-[address] HospitalGxqcugwMMCUQLSSQV9194-92-23 10:55:00 Test Item Value Reference Range Interpretation Comments INR (test code = INR) 1.01 0.85-1.[address] [facility] HospitalAzgunrdQWSQPGGCWQ2709-11-39 10:55:00 Test Item Value Reference Range Interpretation Comments PTT (test code = PTT) 32.0 s 22.9-35.[address] [facility] HospitalYiakmpuBHTVCFBKVZ4229-92-93 10:55:00 Test Item Value Reference Range Interpretation Comments PT (test code = PT) 13.3 s 12.0-14.[address] [facility] [facility] HospitalAmjblnvYDBBNJGUZB4461-12-13 10:55:00 Test Item Value Reference Range Interpretation Comments Hgb (test code = Hgb) 13.0 14.0-18.[address] HospitalFqqfwhqRKBLTCHOFP9813-63-03 10:55:00 Test Item Value Reference Range Interpretation Comments MCHC (test code = MCHC) 34.8 32.0-36.[address] [facility] [facility] HospitalQflqgwuBQMLRUWKLY1943-77-67 10:55:00 Test Item Value Reference Range Interpretation Comments RDW (test code = RDW) 13.9 11.5-14.[address] HospitalCbbjpyvIRGEISBHVC1520-06-59 10:55:00 Test Item Value Reference Range Interpretation Comments Platelet (test code = Platelet) 199 133-[address] [facility] HospitalBfdslwiWIDDYZUIVY1804-77-87 10:55:00 Test Item Value Reference Range Interpretation Comments MPV (test code = MPV) 7.4 7.4-10.[address] [facility] [facility] HospitalBroemycDMTOZYRUYA6851-24-32 10:55:00 Test Item Value Reference Range Interpretation Comments Hct (test code = Hct) 37.4 42.0-54.[address] HospitalFuatqngVOCKKBDEAC2116-39-15 10:55:00 Test Item Value Reference Range Interpretation Comments MCV (test code = MCV) 91.3 80.0-94.[address] HospitalGfcrmidBGDVXODPLP2258-14-53 10:55:00 Test Item Value Reference Range Interpretation Comments MCH (test code = MCH) 31.8 pg 27.0-31.[address] [facility] [facility] HospitalGlyhpezZTBEAQPNIY1119-04-94 10:55:00 Test Item Value Reference Range Interpretation Comments WBC (test code = WBC) 5.2 3.7-10.[address] [facility] HospitalWorckbeFIXZBQZWGB9001-35-75 10:55:00 Test Item Value Reference Range Interpretation Comments RBC (test code = RBC) 4.10 4.70-6.[address] [facility] HospitalLlrkzblODVUCYFPXD5830-60-32 10:55:00 Test Item Value Reference Range Interpretation Comments Basophils # (test code 0.0 See_Comment N [Aut omated message] The = Basophils #) system which generated this result tra nsmitted reference range : <=0.2. The reference r ana luisa was not used to int erpret this result as normal/abnormal . [facility] HospitalUaiihbxFJRCUMAUGD0676-18-44 10:55:00 Test Item Value Reference Range Interpretation Comments Eosinophils # (test code 0.1 See_Comment N [A utomated message] The = Eosinophils #) system whic h generated this result tra nsmitted reference range : <=0.5. The reference r ana luisa was not used to int erpret this result as normal/abnormal . [facility] HospitalWshgodzPGHUDSGCIU6128-32-49 10:55:00 Test Item Value Reference Range Interpretation Comments Monocytes (test code = Monocytes) 14.4 2.0-12.[address] HospitalSzuzyhiQUJOROKIKS9868-56-60 10:55:00 Test Item Value Reference Range Interpretation Comments Lymphocytes (test code = Lymphocytes) 14.6 20.0-40.[address] [facility] HospitalHmkapqnQMFQMIUJDP9157-34-81 10:55:00 Test Item Value Reference Range Interpretation Comments Basophils (test code = 0.2 See_Comment N [Aut omated message] The Basophils) system which ge nerated this result tra nsmitted reference range : <=1.0. The reference r ana luisa was not used to int erpret this result as normal/abnormal . [facility] HospitalGczyeyqQTZEEGGWPV7098-66-19 10:55:00 Test Item Value Reference Range Interpretation Comments Eosinophils (test code = 2.4 See_Comment N [A utomated message] The Eosinophils) system which ge nerated this result tra nsmitted reference range : <=4.0. The reference r ana luisa was not used to int erpret this result as normal/abnormal . [facility] HospitalPfaxxvrCXTIFJWDJR3443-86-91 10:55:00 Test Item Value Reference Range Interpretation Comments Segs-Bands # (test code = Segs-Bands #) 3.6 1.5-8.[address] [facility] HospitalDzzspuzQWRUJCSEJF1233-81-56 10:55:00 Test Item Value Reference Range Interpretation Comments Lymphocytes # (test code = Lymphocytes 0.8 1.0-5.5 L #) [facility] HospitalLtfhdsgKMCUHTDSAS6218-66-28 10:55:00 Test Item Value Reference Range Interpretation Comments Monocytes # (test code 0.7 See_Comment N [Aut omated message] The = Monocytes #) system which generated this result tra nsmitted reference range : <=0.8. The reference r ana luisa was not used to int erpret this result as normal/abnormal . [facility] HospitalGfbrisgJAZAYHLJJZ1853-20-42 10:55:00 Test Item Value Reference Range Interpretation Comments Segs (test code = Segs) 68.4 45.0-75.0 N [facility] ResourcesAupzthdXWOLKSOQJF2913-48-56 10:55:00 Test Item Value Reference Range Interpretation Comments Hep A IgM (test code Negative *NA*(10/01/2011 = Hep A IgM) 04:55:00) [facility] ResourcesDezmwesXPYDEKUSOO0211-21-64 10:55:00 Test Item Value Reference Range Interpretation Comments Hep C Ab (test code = Positive *NA*(10/01/2011 Hep C Ab) 04:55:00) [facility] ResourcesUeanqdpAIFJLUHQIX9273-43-60 10:55:00 Test Item Value Reference Range Interpretation Comments Hep Bs Ag (test code Negative *NA*(10/01/2011 = Hep Bs Ag) 04:55:00) [facility] ResourcesJgregspUMHKKWUOWI6668-22-55 10:55:00 Test Item Value Reference Range Interpretation Comments Hep Bs Ab (test code = Hep Bs Ab) 3.6 N [facility] ResourcesMgqvdkqQIGSBKWMKG5425-17-98 10:55:00 Test Item Value Reference Range Interpretation Comments Hep B Core Ab (test Negative *NA*(10/01/2011 code = Hep B Core Ab) 04:55:00) [facility] CenterHjeonzhGXAALFNQM5789-47-50 19:55:00 Test Item Value Reference Range Interpretation Comments Lactic Acid Lvl (test code = Lactic 1.9 0.5-2.2 N Acid Lvl) [facility] CenterMseprnpKLGEUBHWR0033-21-03 19:55:00 Test Item Value Reference Range Interpretation Comments Lactic Acid Lvl (test code = Lactic 1.9 0.5-2.2 N Acid Lvl) [facility] CenterKfbqgxlFANXGJQZX1945-63-80 19:55:00 Test Item Value Reference Range Interpretation Comments Lactic Acid Lvl (test code = Lactic 1.9 0.5-2.2 N Acid Lvl) [facility] CenterEesnspvHDZEZMDGE7551-70-06 19:55:00 Test Item Value Reference Range Interpretation Comments Lactic Acid Lvl (test code = Lactic 1.9 0.5-2.2 N Acid Lvl) [facility] TomballZlnodmoSygirfznques3947-53-20 17:40:00 Test Item Value Reference Range Interpretation Comments Culture: Blood (test code = Culture: Blood) [facility] TomballTdgvmxqCsrzggvqrpqq7859-06-27 17:40:00 Test Item Value Reference Range Interpretation Comments Culture: Blood (test code = Culture: Blood) [facility] TomballOoyyishXhktcejochrs5611-12-12 17:40:00 Test Item Value Reference Range Interpretation Comments Culture: Blood (test code = Culture: Blood) [facility] TomballJerwspsPtayxevtjudz3085-53-26 17:40:00 Test Item Value Reference Range Interpretation Comments Culture: Blood (test code = Culture: Blood) [facility] TomballKjbaiaeCYOAGKREGL6420-62-50 17:00:00 Test Item Value Reference Range Interpretation Comments UA Leuk Est (test Negative (09/30/2011 N code = UA Leuk Est) 11:00:00) [facility] TomballNtrofjkPMITIBDABQ9884-17-20 17:00:00 Test Item Value Reference Range Interpretation Comments UA Nitrite (test code Negative (09/30/2011 N = UA Nitrite) 11:00:00) [facility] TomballQwknxokPHQNZRSUPE3005-44-73 17:00:00 Test Item Value Reference Range Interpretation Comments UA Glucose (test code Negative mg/dL N = UA Glucose) (09/30/2011 11:00:00) [facility] TomballTyomaljJCXOOPBGDA7210-90-59 17:00:00 Test Item Value Reference Range Interpretation Comments UA Ketones (test code Negative mg/dL = UA Ketones) *NA*(09/30/2011 11:00:00) [facility] TomballHcoypmsAXEYCDPSVC3880-36-19 17:00:00 Test Item Value Reference Range Interpretation Comments UA Urobilinogen (test code = UA 0.2 0.1-1.0 N Urobilinogen) [facility]MqvrxmrYQGKZIAHVX2108-83-66 17:00:00 Test Item Value Reference Range Interpretation Comments UA Bili (test code = Negative *NA*(09/30/2011 UA Bili) 11:00:00) [facility]UgyubbgUZYXIQWEIK8826-62-74 17:00:00 Test Item Value Reference Range Interpretation Comments UA Blood (test code = Negative (09/30/2011 N UA Blood) 11:00:00) [facility] MarshallYsdzhpxQAGYTCXWTK6059-80-04 17:00:00 Test Item Value Reference Range Interpretation Comments UA Turbidity (test code = Clear (09/30/2011 N UA Turbidity) 11:00:00) [facility] MarshallMjpbjevVZQAFALHRD9834-59-07 17:00:00 Test Item Value Reference Range Interpretation Comments UA Spec Grav (test code = UA Spec 1.015 1 N Grav) [facility] MarshallSmsrbaoPUQXKZGLPG6945-69-77 17:00:00 Test Item Value Reference Range Interpretation Comments UA Color (test code = Yellow *NA*(09/30/2011 UA Color) 11:00:00) [facility] MarshallJhkrqolQPYSBLBCXU4668-95-77 17:00:00 Test Item Value Reference Range Interpretation Comments UA pH (test code = UA pH) 7.5 1 5.0-8.0 N [facility] MarshallYmpelzzEUJDTHIYUF1192-31-83 17:00:00 Test Item Value Reference Range Interpretation Comments UA Protein (test code Negative mg/dL N = UA Protein) (09/30/2011 11:00:00) [facility] MarshallJrzvvwbYDGICQXLGA9192-15-31 17:00:00 Test Item Value Reference Range Interpretation Comments UA RBC (test 0-2 /HPF See_Comment N [Automated [place]] code = UA RBC) (09/30/2011 The system wh ich 11:00:00) generated this result transmitted ref erence range: <=2. The reference range was not used to int erpret this result as normal/abnormal . [facility] MarshallEvlsbnoHSEGVMNOHP8102-51-98 17:00:00 Test Item Value Reference Range Interpretation Comments Micro? (test code = Performed (09/30/2011 N Micro?) 11:00:00) [facility] MarshallOeoahrxIFOLXBVDLR9729-89-87 17:00:00 Test Item Value Reference Range Interpretation Comments UA Sq Epi (test code = Rare /LPF (09/30/2011 N UA Sq Epi) 11:00:00) [facility] MarshallCfutpywOIXFJGWPKO6576-06-32 17:00:00 Test Item Value Reference Range Interpretation Comments UA Leuk Est (test Negative (09/30/2011 N code = UA Leuk Est) 11:00:00) [facility]ballYpbmdfrGFFPPLDPAC2751-49-84 17:00:00 Test Item Value Reference Range Interpretation Comments UA Nitrite (test code Negative (09/30/2011 N = UA Nitrite) 11:00:00) [facility] TomballFtefjraJHLBGGDDAF2979-35-34 17:00:00 Test Item Value Reference Range Interpretation Comments UA Glucose (test code Negative mg/dL N = UA Glucose) (09/30/2011 11:00:00) [facility] TomballVdwtykhGQFUNYSZXX4707-98-21 17:00:00 Test Item Value Reference Range Interpretation Comments UA Ketones (test code Negative mg/dL = UA Ketones) *NA*(09/30/2011 11:00:00) [facility] TomballDdlqfhwYAESSOHKCJ2297-73-08 17:00:00 Test Item Value Reference Range Interpretation Comments UA Urobilinogen (test code = UA 0.2 0.1-1.0 N Urobilinogen) [facility] TomballHltmwinCRPWMTBRWW7941-81-85 17:00:00 Test Item Value Reference Range Interpretation Comments UA Bili (test code = Negative *NA*(09/30/2011 UA Bili) 11:00:00) [facility]ballPvhpwvtGHUEDBCEYL8040-93-15 17:00:00 Test Item Value Reference Range Interpretation Comments UA Blood (test code = Negative (09/30/2011 N UA Blood) 11:00:00) [facility] TomballGrivvjuILPIGMDYLA4183-28-34 17:00:00 Test Item Value Reference Range Interpretation Comments UA Turbidity (test code = Clear (09/30/2011 N UA Turbidity) 11:00:00) [facility] TomballVpcnwpzFYXJUSIZBN9375-72-83 17:00:00 Test Item Value Reference Range Interpretation Comments UA Spec Grav (test code = UA Spec 1.015 1 N Grav) [facility] TomballZfcscdfDPXAFRPKTB2441-72-41 17:00:00 Test Item Value Reference Range Interpretation Comments UA Color (test code = Yellow *NA*(09/30/2011 UA Color) 11:00:00) [facility] TomballHwiglmfCMAGJJRXSH8766-58-09 17:00:00 Test Item Value Reference Range Interpretation Comments UA pH (test code = UA pH) 7.5 1 5.0-8.0 N [facility] TomballQxpaybfYPGMBFBWZL1691-71-17 17:00:00 Test Item Value Reference Range Interpretation Comments UA Protein (test code Negative mg/dL N = UA Protein) (09/30/2011 11:00:00) [facility] TomballNwmoibfIEIKMMRKHM8942-51-54 17:00:00 Test Item Value Reference Range Interpretation Comments UA RBC (test 0-2 /HPF See_Comment N [Automated [place]] code = UA RBC) (09/30/2011 The system wh ich 11:00:00) generated this result transmitted ref erence range: <=2. The reference range was not used to int erpret this result as normal/abnormal . [facility] TomballKhdwruaRNOMFCREZF4576-53-41 17:00:00 Test Item Value Reference Range Interpretation Comments Micro? (test code = Performed (09/30/2011 N Micro?) 11:00:00) [facility] TomballTcdtjpvXUAWKDDJJB3979-36-37 17:00:00 Test Item Value Reference Range Interpretation Comments UA Sq Epi (test code = Rare /LPF (09/30/2011 N UA Sq Epi) 11:00:00) [facility] TomballAwqsjvgJKKRUUERRS9818-83-87 17:00:00 Test Item Value Reference Range Interpretation Comments UA Leuk Est (test Negative (09/30/2011 N code = UA Leuk Est) 11:00:00) [facility] TomballTajyrxrWUJEZZSBBR7524-43-45 17:00:00 Test Item Value Reference Range Interpretation Comments UA Nitrite (test code Negative (09/30/2011 N = UA Nitrite) 11:00:00) [facility] TomballGamjsmbDTVNTZHOCX3074-80-30 17:00:00 Test Item Value Reference Range Interpretation Comments UA Glucose (test code Negative mg/dL N = UA Glucose) (09/30/2011 11:00:00) [facility] TomballNtbbcsaSVIJVBMEKW1876-58-93 17:00:00 Test Item Value Reference Range Interpretation Comments UA Ketones (test code Negative mg/dL = UA Ketones) *NA*(09/30/2011 11:00:00) [facility] TomballWjvyqxfSZXDDOUPFV9513-20-19 17:00:00 Test Item Value Reference Range Interpretation Comments UA Urobilinogen (test code = UA 0.2 0.1-1.0 N Urobilinogen) [facility] MarshallFlkypexOJVPJYGHGI0910-14-47 17:00:00 Test Item Value Reference Range Interpretation Comments UA Bili (test code = Negative *NA*(09/30/2011 UA Bili) 11:00:00) [facility] MarshallJhgeubrUJYEZFDNFS5034-57-47 17:00:00 Test Item Value Reference Range Interpretation Comments UA Blood (test code = Negative (09/30/2011 N UA Blood) 11:00:00) [facility] CenterKxcmnycPNZOMDRSKY4949-03-85 17:00:00 Test Item Value Reference Range Interpretation Comments UA Turbidity (test code = Clear (09/30/2011 N UA Turbidity) 11:00:00) [facility] MarshallAjzzqalAPKKUZEMRU1046-43-44 17:00:00 Test Item Value Reference Range Interpretation Comments UA Spec Grav (test code = UA Spec 1.015 1 N Grav) [facility] MarshallYuyezipXJXATEDDPK9129-71-25 17:00:00 Test Item Value Reference Range Interpretation Comments UA Color (test code = Yellow *NA*(09/30/2011 UA Color) 11:00:00) [facility] MarshallBflwsggRNOSYPFUPD1274-60-56 17:00:00 Test Item Value Reference Range Interpretation Comments UA pH (test code = UA pH) 7.5 1 5.0-8.0 N [facility] CenterTtxtfodBHTBUNEQSX3391-15-62 17:00:00 Test Item Value Reference Range Interpretation Comments UA Protein (test code Negative mg/dL N = UA Protein) (09/30/2011 11:00:00) [facility] CenterRpjatyvYRTMQZLIDJ1288-98-78 17:00:00 Test Item Value Reference Range Interpretation Comments UA RBC (test 0-2 /HPF See_Comment N [Automated [place]] code = UA RBC) (09/30/2011 The system wh ich 11:00:00) generated this result transmitted ref erence range: <=2. The reference range was not used to int erpret this result as normal/abnormal . [facility] CenterIlndpfcMORRVGARQB5884-23-12 17:00:00 Test Item Value Reference Range Interpretation Comments Micro? (test code = Performed (09/30/2011 N Micro?) 11:00:00) [facility] TomballUwhhqtgGZVWQIQBYM6203-05-81 17:00:00 Test Item Value Reference Range Interpretation Comments UA Sq Epi (test code = Rare /LPF (09/30/2011 N UA Sq Epi) 11:00:00) [facility] TomballBbvhwqgHPKUMRTXBF5851-66-31 17:00:00 Test Item Value Reference Range Interpretation Comments UA Leuk Est (test Negative (09/30/2011 N code = UA Leuk Est) 11:00:00) [facility] MarshallBnzkcxaCEUSICUSUU6203-67-29 17:00:00 Test Item Value Reference Range Interpretation Comments UA Nitrite (test code Negative (09/30/2011 N = UA Nitrite) 11:00:00) [facility] TomballEzefagrZRBFHERSDW7351-22-46 17:00:00 Test Item Value Reference Range Interpretation Comments UA Glucose (test code Negative mg/dL N = UA Glucose) (09/30/2011 11:00:00) [facility] TomballQbbtiirSMEUKDCJTE6411-08-70 17:00:00 Test Item Value Reference Range Interpretation Comments UA Ketones (test code Negative mg/dL = UA Ketones) *NA*(09/30/2011 11:00:00) [facility] TomballLnlayrpWFMNDZVHCS9369-80-95 17:00:00 Test Item Value Reference Range Interpretation Comments UA Urobilinogen (test code = UA 0.2 0.1-1.0 N Urobilinogen) [facility] TomballBtmtudeQSUGRTWVOM4637-72-53 17:00:00 Test Item Value Reference Range Interpretation Comments UA Bili (test code = Negative *NA*(09/30/2011 UA Bili) 11:00:00) [facility] TomballTsbyxudZAXXLEVMJW8960-25-57 17:00:00 Test Item Value Reference Range Interpretation Comments UA Blood (test code = Negative (09/30/2011 N UA Blood) 11:00:00) [facility] MarshallDphtrxuDWNLMATOUR0686-97-10 17:00:00 Test Item Value Reference Range Interpretation Comments UA Turbidity (test code = Clear (09/30/2011 N UA Turbidity) 11:00:00) [facility] TomballWcookkyFLHVBGGRVH6574-78-89 17:00:00 Test Item Value Reference Range Interpretation Comments UA Spec Grav (test code = UA Spec 1.015 1 N Grav) [facility] MarshallWedsmaqDTPLGDRORW4614-95-00 17:00:00 Test Item Value Reference Range Interpretation Comments UA Color (test code = Yellow *NA*(09/30/2011 UA Color) 11:00:00) [facility] MarshallWtvywniISDDBUXVHA4606-82-22 17:00:00 Test Item Value Reference Range Interpretation Comments UA pH (test code = UA pH) 7.5 1 5.0-8.0 N [facility] MarshallUwcaizkWLSGFKMIAI3726-38-84 17:00:00 Test Item Value Reference Range Interpretation Comments UA Protein (test code Negative mg/dL N = UA Protein) (09/30/2011 11:00:00) [facility] MarshallYetxeoiEKBFJTARQZ9941-69-81 17:00:00 Test Item Value Reference Range Interpretation Comments UA RBC (test 0-2 /HPF See_Comment N [Automated [place]] code = UA RBC) (09/30/2011 The system ich 11:00:00) generated this result transmitted ref erence range: <=2. The reference range was not used to int erpret this result as normal/abnormal . [facility] MarshallZunmygdVXEFRRDLFW4415-44-85 17:00:00 Test Item Value Reference Range Interpretation Comments Micro? (test code = Performed (09/30/2011 N Micro?) 11:00:00) [facility] MarshallJlgmkyhBWTDRCPVWX4398-37-67 17:00:00 Test Item Value Reference Range Interpretation Comments UA Sq Epi (test code = Rare /LPF (09/30/2011 N UA Sq Epi) 11:00:00) [facility]UdwmspnBMJFZVNZG4463-61-84 16:40:00 Test Item Value Reference Range Interpretation Comments Lipase Lvl (test code = Lipase Lvl) 337 73-393 N [facility] CenterScgauqwWSYOUCFMG4435-54-09 16:40:00 Test Item Value Reference Range Interpretation Comments Lactic Acid Lvl (test code = Lactic 2.7 0.5-2.2 H Acid Lvl) [facility] CenterUzjlfrwBSNTFLYCR8905-87-69 16:40:00 Test Item Value Reference Range Interpretation Comments Phosphorus (test code = Phosphorus) 3.2 2.5-4.5 N [facility] CenterLhkmkncTZOSEHXJR7450-71-94 16:40:00 Test Item Value Reference Range Interpretation Comments Magnesium Lvl (test code = Magnesium 1.5 1.8-2.4 L Lvl) [facility] CenterJvngurhJYESHZWIZ8185-68-18 16:40:00 Test Item Value Reference Range Interpretation Comments AGAP (test code = AGAP) 13.2 10.0-20.0 N [facility] CenterUklnpvjDZZWMTTKQ1937-06-40 16:40:00 Test Item Value Reference Range Interpretation Comments Chloride Lvl (test code = Chloride Lvl) 99 95-109 N [facility] CenterUatifhiFCTHQCBBB0158-41-21 16:40:00 Test Item Value Reference Range Interpretation Comments CO2 (test code = CO2) 29 24-32 N [facility] CenterKhsvmnpIGRHYPLES6894-51-13 16:40:00 Test Item Value Reference Range Interpretation Comments Potassium Lvl (test code = Potassium 4.2 3.5-5.1 N Lvl) [facility] CenterEijkgkrCQROLDFTK5413-48-73 16:40:00 Test Item Value Reference Range Interpretation Comments Calcium Lvl (test code = Calcium Lvl) 9.0 8.5-10.5 N [facility] CenterWiypronOPKFGJLZB4205-69-10 16:40:00 Test Item Value Reference Range Interpretation Comments Glucose Lvl (test code = Glucose Lvl) 132 [facility] CenterNbaajdsQWWHVGYHO3492-72-34 16:40:00 Test Item Value Reference Range Interpretation Comments Sodium Lvl (test code = Sodium Lvl) 137 135-145 N [facility] CenterZxcrdvyHBXTEMWYJ3229-27-09 16:40:00 Test Item Value Reference Range Interpretation Comments BUN (test code = BUN) 13 7-22 N [facility] CenterElhpkfqLXPUYJYXN5937-24-68 16:40:00 Test Item Value Reference Range Interpretation Comments Creatinine Lvl (test code = Creatinine 1.0 0.5-1.4 N Lvl) [facility] CenterAzluwcsHTKPYLOZS5702-20-90 16:40:00 Test Item Value Reference Range Interpretation Comments Bili Indirect (test 0.4 See_Comment N [Automa quoc message] The code = Bili Indirect) system which generated this result tra nsmitted reference range : <=1.0. The reference r ana luisa was not used to int erpret this result as normal/abnormal . [facility] CenterUcdufiuJMAMADKCY5679-50-99 16:40:00 Test Item Value Reference Range Interpretation Comments A/G Ratio (test code = A/G Ratio) 1.1 0.7-1.6 N [facility] CenterLhewlygFRVSTMXPO0147-34-03 16:40:00 Test Item Value Reference Range Interpretation Comments Globulin (test code = Globulin) 3.4 2.0-4.0 N [facility] CenterFssmkpuNZGGTRTOE9643-73-48 16:40:00 Test Item Value Reference Range Interpretation Comments Bili Total (test code = Bili Total) 0.8 0.2-1.3 N [facility] CenterBxwgamqGIICJPMKX3501-86-08 16:40:00 Test Item Value Reference Range Interpretation Comments Alk Phos (test code = Alk Phos) 132 39-136 N [facility] CenterRihljabMPWCSJTVS4293-74-51 16:40:00 Test Item Value Reference Range Interpretation Comments ALT (test code = ALT) 37 See_Comment N [Auto mated message] The system which ge nerated this result transmit quoc reference range : <=65. The reference range was not used to interpr et this result as alisha l/abnormal. [facility] CenterXmiragcUPUDVJODW5456-22-29 16:40:00 Test Item Value Reference Range Interpretation Comments Albumin Lvl (test code = Albumin Lvl) 3.7 3.5-5.0 N [facility] CenterEzrojrrKHUAKMGQT6169-28-84 16:40:00 Test Item Value Reference Range Interpretation Comments Total Protein (test code = Total 7.1 6.4-8.4 N Protein) [facility] CenterCtmcmpfJYVXNQXHQ6223-21-39 16:40:00 Test Item Value Reference Range Interpretation Comments AST (test code = AST) 26 See_Comment N [Auto mated message] The system which ge nerated this result transmit quoc reference range : <=37. The reference range was not used to interpr et this result as alisha l/abnormal. [facility] CenterHwqlkwfJOPMXQFZN0604-91-24 16:40:00 Test Item Value Reference Range Interpretation Comments Bili Direct (test code 0.4 See_Comment H [Aut omated message] The = Bili Direct) system which generated this result tra nsmitted reference range : <=0.3. The reference r ana luisa was not used to int erpret this result as alisha l/abnormal. [facility] HospitalCwmfqaxIUOQXCUCJP6412-67-00 16:40:00 Test Item Value Reference Range Interpretation Comments Basophils # (test code 0.0 See_Comment N [Aut omated message] The = Basophils #) system which generated this result tra nsmitted reference range : <=0.2. The reference r ana luisa was not used to int erpret this result as normal/abnormal . [facility] HospitalZuuqafaGDZVZXKBVM5909-94-88 16:40:00 Test Item Value Reference Range Interpretation Comments Basophils (test code = 0.0 See_Comment N [Aut omated message] The Basophils) system which ge nerated this result tra nsmitted reference range : <=1.0. The reference r ana luisa was not used to int erpret this result as normal/abnormal . [facility] HospitalMgxkcbmAVENJOHHHY8063-75-05 16:40:00 Test Item Value Reference Range Interpretation Comments Eosinophils (test code = 0.5 See_Comment N [A utomated message] The Eosinophils) system which ge nerated this result tra nsmitted reference range : <=4.0. The reference r ana luisa was not used to int erpret this result as normal/abnormal . [facility] HospitalEsotnwwKMGWGGJYQP2807-30-82 16:40:00 Test Item Value Reference Range Interpretation Comments Monocytes # (test code 0.6 See_Comment N [Aut omated message] The = Monocytes #) system which generated this result tra nsmitted reference range : <=0.8. The reference r ana luisa was not used to int erpret this result as normal/abnormal . [facility] HospitalQkigkouMQLGCPQRNT4877-38-67 16:40:00 Test Item Value Reference Range Interpretation Comments Monocytes (test code = Monocytes) 7.9 2.0-12.[address] [facility] HospitalEjzlazrVAZLNEZNLY8297-50-77 16:40:00 Test Item Value Reference Range Interpretation Comments Lymphocytes (test code = Lymphocytes) 5.1 20.0-40.[address] HospitalDfvyvfbWSBSGTURFW8064-35-43 16:40:00 Test Item Value Reference Range Interpretation Comments Eosinophils # (test code 0.0 See_Comment N [A utomated message] The = Eosinophils #) system whic h generated this result tra nsmitted reference range : <=0.5. The reference r ana luisa was not used to int erpret this result as normal/abnormal . [facility] HospitalYetuqapPFAUXPFWMT0436-68-52 16:40:00 Test Item Value Reference Range Interpretation Comments Lymphocytes # (test code = Lymphocytes 0.4 1.0-5.5 L #) [facility] HospitalXmvjmbnLRXMAQUNBV0352-22-06 16:40:00 Test Item Value Reference Range Interpretation Comments Segs-Bands # (test code = Segs-Bands #) 7.0 1.5-8.[address] [facility] HospitalQycvxrdQUDNVIUCOG2818-20-35 16:40:00 Test Item Value Reference Range Interpretation Comments Plt Morph (test code = Normal (09/30/2011 N Plt Morph) 10:40:00) [facility] HospitalGbvcgfhEUPTGPGMFL4410-87-20 16:40:00 Test Item Value Reference Range Interpretation Comments Segs (test code = Segs) 86.5 45.0-75.[address] [facility] HospitalUtschjyKXXHWRRVKB1126-71-81 16:40:00 Test Item Value Reference Range Interpretation Comments RBC Morph (test code = Normal (09/30/2011 N RBC Morph) 10:40:00) [facility] HospitalRexxsfzFILUCISWGH0694-54-05 16:40:00 Test Item Value Reference Range Interpretation Comments PTT (test code = PTT) 27.8 s 22.9-35.[address] [facility] [facility] HospitalVhapjepSSLGQPRMUC3430-91-41 16:40:00 Test Item Value Reference Range Interpretation Comments PT (test code = PT) 12.3 s 12.0-14.[address] [facility] HospitalYmwgwcnGVXXISPVXT8503-89-06 16:40:00 Test Item Value Reference Range Interpretation Comments INR (test code = INR) 0.91 0.85-1.[address] [facility] [facility] HospitalNbhgdoiVMZIDMQDTM3420-86-04 16:40:00 Test Item Value Reference Range Interpretation Comments MPV (test code = MPV) 7.3 7.4-10.[address] [facility] HospitalTwgkkaoLULLYHFTBA7813-57-27 16:40:00 Test Item Value Reference Range Interpretation Comments RDW (test code = RDW) 12.3 11.5-14.[address] [facility] [facility] HospitalDfcugviMYBQZOGQCP6134-50-50 16:40:00 Test Item Value Reference Range Interpretation Comments Platelet (test code = Platelet) 256 133-[address] [facility] HospitalQgcazhhDBCTCUKUUW3429-64-85 16:40:00 Test Item Value Reference Range Interpretation Comments MCHC (test code = MCHC) 34.3 32.0-36.[address] [facility] HospitalIcsgsluDDTTBNKANM7761-03-59 16:40:00 Test Item Value Reference Range Interpretation Comments MCV (test code = MCV) 91.0 80.0-94.[address] [facility] HospitalDnkmnegYLOEPWLMCC0082-23-36 16:40:00 Test Item Value Reference Range Interpretation Comments MCH (test code = MCH) 31.2 pg 27.0-31.[address] HospitalAxswzbnBDCSJJKMYP5011-40-22 16:40:00 Test Item Value Reference Range Interpretation Comments Hgb (test code = Hgb) 14.0 14.0-18.[address] [facility] HospitalQrqpsmkBFCOLBEWMQ2410-94-63 16:40:00 Test Item Value Reference Range Interpretation Comments Hct (test code = Hct) 40.9 42.0-54.[address] [facility] HospitalXyakzctIKIKMMENNA3746-96-98 16:40:00 Test Item Value Reference Range Interpretation Comments WBC (test code = WBC) 8.0 3.7-10.[address] [facility] HospitalRjvromcXRRSFYLZDM9744-39-54 16:40:00 Test Item Value Reference Range Interpretation Comments RBC (test code = RBC) 4.50 4.70-6.10 L [facility] CenterMahvvceVAAPIKBSZ0296-63-29 16:40:00 Test Item Value Reference Range Interpretation Comments Lipase Lvl (test code = Lipase Lvl) 337 73-393 N [facility] CenterFqinsyxDTNNWYQJC1550-11-46 16:40:00 Test Item Value Reference Range Interpretation Comments Lactic Acid Lvl (test code = Lactic 2.7 0.5-2.2 H Acid Lvl) [facility] CenterDrhbynsXBGKDNYFH0599-24-11 16:40:00 Test Item Value Reference Range Interpretation Comments Phosphorus (test code = Phosphorus) 3.2 2.5-4.5 N [facility] CenterMxstadyKDJSUHZVU9797-51-37 16:40:00 Test Item Value Reference Range Interpretation Comments Magnesium Lvl (test code = Magnesium 1.5 1.8-2.4 L Lvl) [facility] CenterFycnrodKDXWLQINN3700-50-29 16:40:00 Test Item Value Reference Range Interpretation Comments AGAP (test code = AGAP) 13.2 10.0-20.0 N [facility] CenterQkmjozdGAFHZTYKL1828-63-19 16:40:00 Test Item Value Reference Range Interpretation Comments Chloride Lvl (test code = Chloride Lvl) 99 95-109 N [facility] CenterGpzyytoPNDEXNKCQ4149-29-70 16:40:00 Test Item Value Reference Range Interpretation Comments CO2 (test code = CO2) 29 24-32 N [facility] CenterBljbgrsBXZKBQRIM4776-51-86 16:40:00 Test Item Value Reference Range Interpretation Comments Potassium Lvl (test code = Potassium 4.2 3.5-5.1 N Lvl) [facility] CenterTebzyasXSWDCUFAR9803-36-92 16:40:00 Test Item Value Reference Range Interpretation Comments Calcium Lvl (test code = Calcium Lvl) 9.0 8.5-10.5 N [facility] CenterFtkleveUOTRMEEFA1299-92-38 16:40:00 Test Item Value Reference Range Interpretation Comments Glucose Lvl (test code = Glucose Lvl) 132 [facility] CenterFhafsytDPAJQNRRH2892-94-05 16:40:00 Test Item Value Reference Range Interpretation Comments Sodium Lvl (test code = Sodium Lvl) 137 135-145 N [facility] CenterFsintawWXUZOADYK1186-08-07 16:40:00 Test Item Value Reference Range Interpretation Comments BUN (test code = BUN) 13 7-22 N [facility] CenterQlkkqksLHGYCDEXI6067-32-58 16:40:00 Test Item Value Reference Range Interpretation Comments Creatinine Lvl (test code = Creatinine 1.0 0.5-1.4 N Lvl) [facility] CenterZgtbexnKWUASWVSN6693-61-17 16:40:00 Test Item Value Reference Range Interpretation Comments Bili Indirect (test 0.4 See_Comment N [Automa quoc message] The code = Bili Indirect) system which generated this result tra nsmitted reference range : <=1.0. The reference r ana luisa was not used to int erpret this result as normal/abnormal . [facility] CenterEuthpgaCBZMMCHPL3910-83-62 16:40:00 Test Item Value Reference Range Interpretation Comments A/G Ratio (test code = A/G Ratio) 1.1 0.7-1.6 N [facility] CenterCblnvesVHTOKTJSP5652-12-46 16:40:00 Test Item Value Reference Range Interpretation Comments Globulin (test code = Globulin) 3.4 2.0-4.0 N [facility] CenterXpdxunrMSQXMWDBS3336-19-13 16:40:00 Test Item Value Reference Range Interpretation Comments Bili Total (test code = Bili Total) 0.8 0.2-1.3 N [facility] CenterPepnzvqSNYQLNDBG4793-50-77 16:40:00 Test Item Value Reference Range Interpretation Comments Alk Phos (test code = Alk Phos) 132 39-136 N [facility] CenterLxunkcpDIBGKMGJR2087-69-56 16:40:00 Test Item Value Reference Range Interpretation Comments ALT (test code = ALT) 37 See_Comment N [Auto mated message] The system which ge nerated this result transmit quoc reference range : <=65. The reference range was not used to interpr et this result as alisha l/abnormal. [facility] CenterBshffebBXTZJHVZO4400-67-97 16:40:00 Test Item Value Reference Range Interpretation Comments Albumin Lvl (test code = Albumin Lvl) 3.7 3.5-5.0 N [facility] CenterPznbvbvTZGOSUNKV7464-68-39 16:40:00 Test Item Value Reference Range Interpretation Comments Total Protein (test code = Total 7.1 6.4-8.4 N Protein) [facility] CenterEqlfutlWDUGYHVUG9266-63-29 16:40:00 Test Item Value Reference Range Interpretation Comments AST (test code = AST) 26 See_Comment N [Auto mated message] The system which ge nerated this result transmit quoc reference range : <=37. The reference range was not used to interpr et this result as alisha l/abnormal. [facility] CenterQjyshbcPNYWEYZUK1226-05-92 16:40:00 Test Item Value Reference Range Interpretation Comments Bili Direct (test code 0.4 See_Comment H [Aut omated message] The = Bili Direct) system which generated this result tra nsmitted reference range : <=0.3. The reference r ana luisa was not used to int erpret this result as alisha l/abnormal. [facility] HospitalHmgdevpBIVJRSREII7825-96-16 16:40:00 Test Item Value Reference Range Interpretation Comments Basophils # (test code 0.0 See_Comment N [Aut omated message] The = Basophils #) system which generated this result tra nsmitted reference range : <=0.2. The reference r ana luisa was not used to int erpret this result as normal/abnormal . [facility] HospitalPnyakmkLKEWDDSPKO8549-23-96 16:40:00 Test Item Value Reference Range Interpretation Comments Basophils (test code = 0.0 See_Comment N [Aut omated message] The Basophils) system which ge nerated this result tra nsmitted reference range : <=1.0. The reference r ana luisa was not used to int erpret this result as normal/abnormal . [facility] HospitalYerdksxQJVFSYQDSI1546-97-65 16:40:00 Test Item Value Reference Range Interpretation Comments Eosinophils (test code = 0.5 See_Comment N [A utomated message] The Eosinophils) system which ge nerated this result tra nsmitted reference range : <=4.0. The reference r ana luisa was not used to int erpret this result as normal/abnormal . [facility] HospitalVtvjcojDKJWXUYJZQ5926-93-74 16:40:00 Test Item Value Reference Range Interpretation Comments Monocytes # (test code 0.6 See_Comment N [Aut omated message] The = Monocytes #) system which generated this result tra nsmitted reference range : <=0.8. The reference r ana luisa was not used to int erpret this result as normal/abnormal . [facility] HospitalHxiipeoETDHLNUVRB1638-69-13 16:40:00 Test Item Value Reference Range Interpretation Comments Monocytes (test code = Monocytes) 7.9 2.0-12.[address] [facility] HospitalQmbcsvtAIGHMLJKTM4905-89-03 16:40:00 Test Item Value Reference Range Interpretation Comments Lymphocytes (test code = Lymphocytes) 5.1 20.0-40.[address] [facility] HospitalGeyxdyzZZVJUPMRKJ8791-78-67 16:40:00 Test Item Value Reference Range Interpretation Comments Eosinophils # (test code 0.0 See_Comment N [A utomated message] The = Eosinophils #) system whic h generated this result tra nsmitted reference range : <=0.5. The reference r ana luisa was not used to int erpret this result as normal/abnormal . [facility] HospitalXlmukgjZCCKWFIDKO3049-86-45 16:40:00 Test Item Value Reference Range Interpretation Comments Lymphocytes # (test code = Lymphocytes 0.4 1.0-5.5 L #) [facility] HospitalZweapquNCAHAMUHUU9667-89-56 16:40:00 Test Item Value Reference Range Interpretation Comments Segs-Bands # (test code = Segs-Bands #) 7.0 1.5-8.[address] HospitalUbydmlvHFUCVMUCNT4605-53-92 16:40:00 Test Item Value Reference Range Interpretation Comments Plt Morph (test code = Normal (09/30/2011 N Plt Morph) 10:40:00) [facility] HospitalXoooredCIKMVGTRPD1225-80-58 16:40:00 Test Item Value Reference Range Interpretation Comments Segs (test code = Segs) 86.5 45.0-75.[address] [facility] HospitalQzgctfgUIGQPYNQSL4978-25-34 16:40:00 Test Item Value Reference Range Interpretation Comments RBC Morph (test code = Normal (09/30/2011 N RBC Morph) 10:40:00) [facility] HospitalJtheermXPNQDNDZWE1027-07-53 16:40:00 Test Item Value Reference Range Interpretation Comments PTT (test code = PTT) 27.8 s 22.9-35.[address] HospitalWmwwxgeGKSLKDXETF8996-47-26 16:40:00 Test Item Value Reference Range Interpretation Comments PT (test code = PT) 12.3 s 12.0-14.[address] [facility] HospitalTwdtnoeQQHTDMOGUK8598-45-96 16:40:00 Test Item Value Reference Range Interpretation Comments INR (test code = INR) 0.91 0.85-1.[address] HospitalWyoxmeuZVSFMUQOYN0278-07-52 16:40:00 Test Item Value Reference Range Interpretation Comments MPV (test code = MPV) 7.3 7.4-10.[address] HospitalMifqgrgVISMQVUFBQ6073-54-26 16:40:00 Test Item Value Reference Range Interpretation Comments RDW (test code = RDW) 12.3 11.5-14.[address] HospitalRkxxpazBRKTBMHLYY2979-23-89 16:40:00 Test Item Value Reference Range Interpretation Comments Platelet (test code = Platelet) 256 133-[address] HospitalKiundtySFWHYDERMQ3032-31-98 16:40:00 Test Item Value Reference Range Interpretation Comments MCHC (test code = MCHC) 34.3 32.0-36.[address] HospitalFrtonwgCAWTAESGTN5713-35-48 16:40:00 Test Item Value Reference Range Interpretation Comments MCV (test code = MCV) 91.0 80.0-94.[address] HospitalVxlwjpoAYSTROBIRR1307-93-99 16:40:00 Test Item Value Reference Range Interpretation Comments MCH (test code = MCH) 31.2 pg 27.0-31.[address] HospitalOrkfvqjWERDKNMBFD0241-13-23 16:40:00 Test Item Value Reference Range Interpretation Comments Hgb (test code = Hgb) 14.0 14.0-18.[address] HospitalFmfcbjtLJHDNKOHLU4360-49-07 16:40:00 Test Item Value Reference Range Interpretation Comments Hct (test code = Hct) 40.9 42.0-54.[address] HospitalRtkrbcdLNWLITBBJU8303-21-81 16:40:00 Test Item Value Reference Range Interpretation Comments WBC (test code = WBC) 8.0 3.7-10.[address] HospitalAhgusxnKYTZRUCVIQ7543-71-40 16:40:00 Test Item Value Reference Range Interpretation Comments RBC (test code = RBC) 4.50 4.70-6.10 L [facility] CenterFjjdakmBHXBNWKTM6796-43-23 16:40:00 Test Item Value Reference Range Interpretation Comments Lipase Lvl (test code = Lipase Lvl) 337 73-393 N [facility] CenterMuakwatYBRMXMQKW7287-04-01 16:40:00 Test Item Value Reference Range Interpretation Comments Lactic Acid Lvl (test code = Lactic 2.7 0.5-2.2 H Acid Lvl) [facility] CenterNjblveqSDONMVRDE5849-04-60 16:40:00 Test Item Value Reference Range Interpretation Comments Phosphorus (test code = Phosphorus) 3.2 2.5-4.5 N [facility] CenterSeqabnfYVFBKYKKI6034-22-18 16:40:00 Test Item Value Reference Range Interpretation Comments Magnesium Lvl (test code = Magnesium 1.5 1.8-2.4 L Lvl) [facility] CenterWwiytioBYNWPTJLQ6911-82-12 16:40:00 Test Item Value Reference Range Interpretation Comments AGAP (test code = AGAP) 13.2 10.0-20.0 N [facility] CenterEoukyevDWNSQKPLR5263-99-03 16:40:00 Test Item Value Reference Range Interpretation Comments Chloride Lvl (test code = Chloride Lvl) 99 95-109 N [facility] CenterWnvbkvfNPKBBUONN6304-03-43 16:40:00 Test Item Value Reference Range Interpretation Comments CO2 (test code = CO2) 29 24-32 N [facility] CenterTvisiyqAVXFIRZUV3072-07-69 16:40:00 Test Item Value Reference Range Interpretation Comments Potassium Lvl (test code = Potassium 4.2 3.5-5.1 N Lvl) [facility] CenterUaybvqaARHKGXLYK2034-28-26 16:40:00 Test Item Value Reference Range Interpretation Comments Calcium Lvl (test code = Calcium Lvl) 9.0 8.5-10.5 N [facility] CenterXcyjldyUJPCPNJRH4905-45-08 16:40:00 Test Item Value Reference Range Interpretation Comments Glucose Lvl (test code = Glucose Lvl) 132 [facility] CenterFronaprXNADRITHS9998-40-59 16:40:00 Test Item Value Reference Range Interpretation Comments Sodium Lvl (test code = Sodium Lvl) 137 135-145 N [facility] CenterPinaoswBFUMILARL1821-36-32 16:40:00 Test Item Value Reference Range Interpretation Comments BUN (test code = BUN) 13 7-22 N [facility] CenterJoaptmcDGWLLLXIC6182-76-47 16:40:00 Test Item Value Reference Range Interpretation Comments Creatinine Lvl (test code = Creatinine 1.0 0.5-1.4 N Lvl) [facility] CenterEzuhgxoMHPBVCWDF6598-99-15 16:40:00 Test Item Value Reference Range Interpretation Comments Bili Indirect (test 0.4 See_Comment N [Automa quoc message] The code = Bili Indirect) system which generated this result tra nsmitted reference range : <=1.0. The reference r ana luisa was not used to int erpret this result as normal/abnormal . [facility] CenterWiamvlyYTGYMNUYJ6810-62-38 16:40:00 Test Item Value Reference Range Interpretation Comments A/G Ratio (test code = A/G Ratio) 1.1 0.7-1.6 N [facility] CenterKbezleyAUAXGQIIK5532-47-41 16:40:00 Test Item Value Reference Range Interpretation Comments Globulin (test code = Globulin) 3.4 2.0-4.0 N [facility] CenterUwyyfcrQEOPQVSTY0819-41-14 16:40:00 Test Item Value Reference Range Interpretation Comments Bili Total (test code = Bili Total) 0.8 0.2-1.3 N [facility] CenterYcxxqiiXGFENHFCH1772-34-55 16:40:00 Test Item Value Reference Range Interpretation Comments Alk Phos (test code = Alk Phos) 132 39-136 N [facility] CenterQhwplonCWMQJGAME4609-76-44 16:40:00 Test Item Value Reference Range Interpretation Comments ALT (test code = ALT) 37 See_Comment N [Auto mated message] The system which ge nerated this result transmit quoc reference range : <=65. The reference range was not used to interpr et this result as alisha l/abnormal. [facility] CenterDzvyqetXPKALNWPM6099-60-32 16:40:00 Test Item Value Reference Range Interpretation Comments Albumin Lvl (test code = Albumin Lvl) 3.7 3.5-5.0 N [facility] CenterMsphgenKSJDBDHXA9366-67-43 16:40:00 Test Item Value Reference Range Interpretation Comments Total Protein (test code = Total 7.1 6.4-8.4 N Protein) [facility] CenterFdwwcaiXJNHTYZPX2850-95-37 16:40:00 Test Item Value Reference Range Interpretation Comments AST (test code = AST) 26 See_Comment N [Auto mated message] The system which ge nerated this result transmit quoc reference range : <=37. The reference range was not used to interpr et this result as alisha l/abnormal. [facility] CenterXmwvhrpPAWEMZBGH5318-80-71 16:40:00 Test Item Value Reference Range Interpretation Comments Bili Direct (test code 0.4 See_Comment H [Aut omated message] The = Bili Direct) system which generated this result tra nsmitted reference range : <=0.3. The reference r ana luisa was not used to int erpret this result as alisha l/abnormal. [facility] HospitalXgwzokoNRMIPQZBFQ5231-73-26 16:40:00 Test Item Value Reference Range Interpretation Comments Basophils # (test code 0.0 See_Comment N [Aut omated message] The = Basophils #) system which generated this result tra nsmitted reference range : <=0.2. The reference r ana luisa was not used to int erpret this result as normal/abnormal . [facility] HospitalPojzwewTDXCWMIMKJ3936-34-60 16:40:00 Test Item Value Reference Range Interpretation Comments Basophils (test code = 0.0 See_Comment N [Aut omated message] The Basophils) system which ge nerated this result tra nsmitted reference range : <=1.0. The reference r ana luisa was not used to int erpret this result as normal/abnormal . [facility] HospitalWdfhfxlRHPLNQXQZQ9591-41-02 16:40:00 Test Item Value Reference Range Interpretation Comments Eosinophils (test code = 0.5 See_Comment N [A utomated message] The Eosinophils) system which ge nerated this result tra nsmitted reference range : <=4.0. The reference r ana luisa was not used to int erpret this result as normal/abnormal . [facility] HospitalGrprnofHUYQPIRYBL5092-79-74 16:40:00 Test Item Value Reference Range Interpretation Comments Monocytes # (test code 0.6 See_Comment N [Aut omated message] The = Monocytes #) system which generated this result tra nsmitted reference range : <=0.8. The reference r ana luisa was not used to int erpret this result as normal/abnormal . [facility] HospitalAsidhkzJXQUBPDVIE8490-74-37 16:40:00 Test Item Value Reference Range Interpretation Comments Monocytes (test code = Monocytes) 7.9 2.0-12.[address] [facility] HospitalHnxwkhdWDHWRONWGO7031-94-00 16:40:00 Test Item Value Reference Range Interpretation Comments Lymphocytes (test code = Lymphocytes) 5.1 20.0-40.[address] HospitalAqyueonFIEGNGJHBA5346-19-77 16:40:00 Test Item Value Reference Range Interpretation Comments Eosinophils # (test code 0.0 See_Comment N [A utomated message] The = Eosinophils #) system whic h generated this result tra nsmitted reference range : <=0.5. The reference r ana luisa was not used to int erpret this result as normal/abnormal . [facility] HospitalNwcnhvrRRBEBYZKIO0805-37-31 16:40:00 Test Item Value Reference Range Interpretation Comments Lymphocytes # (test code = Lymphocytes 0.4 1.0-5.5 L #) [facility] HospitalFimbrsjFGAHJUELJG7648-58-11 16:40:00 Test Item Value Reference Range Interpretation Comments Segs-Bands # (test code = Segs-Bands #) 7.0 1.5-8.[address] HospitalLfjvjqkVWNDVZTERZ8928-70-41 16:40:00 Test Item Value Reference Range Interpretation Comments Plt Morph (test code = Normal (09/30/2011 N Plt Morph) 10:40:00) [facility] HospitalJtchglpFYRNJHGENH8831-45-09 16:40:00 Test Item Value Reference Range Interpretation Comments Segs (test code = Segs) 86.5 45.0-75.[address] HospitalAexhxypWMTFFVJTXL6745-85-90 16:40:00 Test Item Value Reference Range Interpretation Comments RBC Morph (test code = Normal (09/30/2011 N RBC Morph) 10:40:00) [facility] HospitalHlgsemfPYXMJKIFTY2813-27-61 16:40:00 Test Item Value Reference Range Interpretation Comments PTT (test code = PTT) 27.8 s 22.9-35.[address] [facility] HospitalVmidtwsIINPIYKUFO1508-17-32 16:40:00 Test Item Value Reference Range Interpretation Comments PT (test code = PT) 12.3 s 12.0-14.[address] HospitalFztiqutOWKJEUAEWD8840-07-58 16:40:00 Test Item Value Reference Range Interpretation Comments INR (test code = INR) 0.91 0.85-1.[address] [address] HospitalBnievfgLDCCAMIPSE8270-35-82 16:40:00 Test Item Value Reference Range Interpretation Comments MPV (test code = MPV) 7.3 7.4-10.[address] HospitalZyedlpkYURKIXBBID1793-40-72 16:40:00 Test Item Value Reference Range Interpretation Comments RDW (test code = RDW) 12.3 11.5-14.[address] HospitalOqewqkxIOYNRNVFSE6777-47-95 16:40:00 Test Item Value Reference Range Interpretation Comments Platelet (test code = Platelet) 256 133-[address] [facility] HospitalUobxkydFMQKQRUJAZ4581-65-63 16:40:00 Test Item Value Reference Range Interpretation Comments MCHC (test code = MCHC) 34.3 32.0-36.[address] [facility] HospitalWotqjiaPFQTNGXESB5150-00-88 16:40:00 Test Item Value Reference Range Interpretation Comments MCV (test code = MCV) 91.0 80.0-94.[address] [facility] HospitalXybcfrdVNPNUCPNYO6213-96-39 16:40:00 Test Item Value Reference Range Interpretation Comments MCH (test code = MCH) 31.2 pg 27.0-31.[address] HospitalZmicwejIYAXLQVVOA5712-28-33 16:40:00 Test Item Value Reference Range Interpretation Comments Hgb (test code = Hgb) 14.0 14.0-18.[address] HospitalEmkibhnOCBGXNMJEX6436-31-03 16:40:00 Test Item Value Reference Range Interpretation Comments Hct (test code = Hct) 40.9 42.0-54.[address] HospitalZakcpbuIOOXICCZUQ7980-29-62 16:40:00 Test Item Value Reference Range Interpretation Comments WBC (test code = WBC) 8.0 3.7-10.[address] HospitalGtudtqqGKKJUPBGKE7478-38-19 16:40:00 Test Item Value Reference Range Interpretation Comments RBC (test code = RBC) 4.50 4.70-6.10 L [facility]NyneatfGHZSRVUYT9291-78-96 16:40:00 Test Item Value Reference Range Interpretation Comments Lipase Lvl (test code = Lipase Lvl) 337 73-393 N [facility] CenterGlahqzeEZVMYZEZG9411-50-83 16:40:00 Test Item Value Reference Range Interpretation Comments Lactic Acid Lvl (test code = Lactic 2.7 0.5-2.2 H Acid Lvl) [facility] CenterEiqjldwTFCDSLBBR3720-31-22 16:40:00 Test Item Value Reference Range Interpretation Comments Phosphorus (test code = Phosphorus) 3.2 2.5-4.5 N [facility] CenterNxnovgnMGOGRJFXB0138-29-13 16:40:00 Test Item Value Reference Range Interpretation Comments Magnesium Lvl (test code = Magnesium 1.5 1.8-2.4 L Lvl) [facility] CenterYkwhtbsUBUEZXRWG2306-86-82 16:40:00 Test Item Value Reference Range Interpretation Comments AGAP (test code = AGAP) 13.2 10.0-20.0 N [facility] CenterEyidhtbALTYPPLUF3609-30-54 16:40:00 Test Item Value Reference Range Interpretation Comments Chloride Lvl (test code = Chloride Lvl) 99 95-109 N [facility] CenterKaduqgoVYQCURJVE7131-20-41 16:40:00 Test Item Value Reference Range Interpretation Comments CO2 (test code = CO2) 29 24-32 N [facility] CenterDozdgbgVPRQVXEOS1318-68-73 16:40:00 Test Item Value Reference Range Interpretation Comments Potassium Lvl (test code = Potassium 4.2 3.5-5.1 N Lvl) [facility] CenterMvgndajQYUKJTHSA5759-47-53 16:40:00 Test Item Value Reference Range Interpretation Comments Calcium Lvl (test code = Calcium Lvl) 9.0 8.5-10.5 N [facility] CenterMltfjabTDYFWKAKL6962-49-33 16:40:00 Test Item Value Reference Range Interpretation Comments Glucose Lvl (test code = Glucose Lvl) 132 [facility] CenterQyptwfaJCPLYGMHE9712-02-06 16:40:00 Test Item Value Reference Range Interpretation Comments Sodium Lvl (test code = Sodium Lvl) 137 135-145 N [facility] CenterShvytinIGBBOULFO4524-05-20 16:40:00 Test Item Value Reference Range Interpretation Comments BUN (test code = BUN) 13 7-22 N [facility] CenterNyxrxljAMDWLJBMY7971-91-71 16:40:00 Test Item Value Reference Range Interpretation Comments Creatinine Lvl (test code = Creatinine 1.0 0.5-1.4 N Lvl) [facility] CenterTugsxhkVUHYDTXOW9046-35-73 16:40:00 Test Item Value Reference Range Interpretation Comments Bili Indirect (test 0.4 See_Comment N [Automa quoc message] The code = Bili Indirect) system which generated this result tra nsmitted reference range : <=1.0. The reference r ana luisa was not used to int erpret this result as normal/abnormal . [facility]EavwqpbJVTZSICGL1991-32-46 16:40:00 Test Item Value Reference Range Interpretation Comments A/G Ratio (test code = A/G Ratio) 1.1 0.7-1.6 N [facility] CenterBnmnyidQNYYRXIDC8509-48-52 16:40:00 Test Item Value Reference Range Interpretation Comments Globulin (test code = Globulin) 3.4 2.0-4.0 N [facility] CenterYdihkaqOEODTYYBO7774-47-65 16:40:00 Test Item Value Reference Range Interpretation Comments Bili Total (test code = Bili Total) 0.8 0.2-1.3 N [facility] CenterCyfltsfKQCGDVBAW8347-08-10 16:40:00 Test Item Value Reference Range Interpretation Comments Alk Phos (test code = Alk Phos) 132 39-136 N [facility] CenterFjnqirzPGUAPPJVK9518-79-70 16:40:00 Test Item Value Reference Range Interpretation Comments ALT (test code = ALT) 37 See_Comment N [Auto mated message] The system which ge nerated this result transmit quoc reference range : <=65. The reference range was not used to interpr et this result as alisha l/abnormal. [facility] CenterGzeaufzLPZBVXBFE6255-34-22 16:40:00 Test Item Value Reference Range Interpretation Comments Albumin Lvl (test code = Albumin Lvl) 3.7 3.5-5.0 N [facility] CenterAgqyblxFBIAXCKPX4720-41-99 16:40:00 Test Item Value Reference Range Interpretation Comments Total Protein (test code = Total 7.1 6.4-8.4 N Protein) [facility] CenterPhocxqbGGJYAAKDV2738-06-33 16:40:00 Test Item Value Reference Range Interpretation Comments AST (test code = AST) 26 See_Comment N [Auto mated message] The system which ge nerated this result transmit quoc reference range : <=37. The reference range was not used to interpr et this result as alisha l/abnormal. [facility] CenterPxrbracSJGWVQPNU7841-77-52 16:40:00 Test Item Value Reference Range Interpretation Comments Bili Direct (test code 0.4 See_Comment H [Aut omated message] The = Bili Direct) system which generated this result tra nsmitted reference range : <=0.3. The reference r ana luisa was not used to int erpret this result as alisha l/abnormal. [facility] HospitalGuedjgrPNSUEXKOWY9781-22-24 16:40:00 Test Item Value Reference Range Interpretation Comments Basophils # (test code 0.0 See_Comment N [Aut omated message] The = Basophils #) system which generated this result tra nsmitted reference range : <=0.2. The reference r ana luisa was not used to int erpret this result as normal/abnormal . [facility] HospitalNrwopljRJFQVSIUSW8482-30-24 16:40:00 Test Item Value Reference Range Interpretation Comments Basophils (test code = 0.0 See_Comment N [Aut omated message] The Basophils) system which ge nerated this result tra nsmitted reference range : <=1.0. The reference r ana luisa was not used to int erpret this result as normal/abnormal . [facility] HospitalHodibihZDQNCTEMJX9219-85-52 16:40:00 Test Item Value Reference Range Interpretation Comments Eosinophils (test code = 0.5 See_Comment N [A utomated message] The Eosinophils) system which ge nerated this result tra nsmitted reference range : <=4.0. The reference r ana luisa was not used to int erpret this result as normal/abnormal . [facility] HospitalLptknsqUBWCDXZMTS2002-95-62 16:40:00 Test Item Value Reference Range Interpretation Comments Monocytes # (test code 0.6 See_Comment N [Aut omated message] The = Monocytes #) system which generated this result tra nsmitted reference range : <=0.8. The reference r ana luisa was not used to int erpret this result as normal/abnormal . [facility] HospitalXqwubavACDTCKIDNF1415-22-52 16:40:00 Test Item Value Reference Range Interpretation Comments Monocytes (test code = Monocytes) 7.9 2.0-12.[address] HospitalVicgbakVRDUXGRXIZ6370-24-75 16:40:00 Test Item Value Reference Range Interpretation Comments Lymphocytes (test code = Lymphocytes) 5.1 20.0-40.[address] HospitalBpxaupaBZOLUMJHXB1028-64-09 16:40:00 Test Item Value Reference Range Interpretation Comments Eosinophils # (test code 0.0 See_Comment N [A utomated message] The = Eosinophils #) system whic h generated this result tra nsmitted reference range : <=0.5. The reference r ana luisa was not used to int erpret this result as normal/abnormal . [facility] HospitalSfmuvqrJEVEIKKOTJ8641-73-31 16:40:00 Test Item Value Reference Range Interpretation Comments Lymphocytes # (test code = Lymphocytes 0.4 1.0-5.5 L #) [facility] HospitalHszswnpDYFVITNUIR8035-46-72 16:40:00 Test Item Value Reference Range Interpretation Comments Segs-Bands # (test code = Segs-Bands #) 7.0 1.5-8.[address] HospitalIvqrmjaANZHHORJMG8304-95-69 16:40:00 Test Item Value Reference Range Interpretation Comments Plt Morph (test code = Normal (09/30/2011 N Plt Morph) 10:40:00) [facility] HospitalDgzczksMXDNUQKYCN6501-03-17 16:40:00 Test Item Value Reference Range Interpretation Comments Segs (test code = Segs) 86.5 45.0-75.[address] HospitalLhfjprwFLLQHBUQRZ0338-44-02 16:40:00 Test Item Value Reference Range Interpretation Comments RBC Morph (test code = Normal (09/30/2011 N RBC Morph) 10:40:00) [facility] HospitalFbakdzaKKKCFIVTUP9283-36-58 16:40:00 Test Item Value Reference Range Interpretation Comments PTT (test code = PTT) 27.8 s 22.9-35.[address] HospitalTlzkkggTZPQXMXWXN9435-16-88 16:40:00 Test Item Value Reference Range Interpretation Comments PT (test code = PT) 12.3 s 12.0-14.[address] [facility] HospitalSbnnjmkFFDDGQESWB9641-86-10 16:40:00 Test Item Value Reference Range Interpretation Comments INR (test code = INR) 0.91 0.85-1.[address] HospitalXzchjnrZHCYJMZPVK2384-93-31 16:40:00 Test Item Value Reference Range Interpretation Comments MPV (test code = MPV) 7.3 7.4-10.[address] HospitalZcdgfsnOWOYXAZRWZ5250-27-70 16:40:00 Test Item Value Reference Range Interpretation Comments RDW (test code = RDW) 12.3 11.5-14.[address] HospitalMojnfyrJRQDILMTNR6940-55-90 16:40:00 Test Item Value Reference Range Interpretation Comments Platelet (test code = Platelet) 256 133-[address] HospitalVsiblppRCQYJIXNAD8479-11-16 16:40:00 Test Item Value Reference Range Interpretation Comments MCHC (test code = MCHC) 34.3 32.0-36.[address] HospitalFyaneieSWWCCHHIBP1605-53-02 16:40:00 Test Item Value Reference Range Interpretation Comments MCV (test code = MCV) 91.0 80.0-94.[address] HospitalCtzwdpjUNESVVMECL5371-74-49 16:40:00 Test Item Value Reference Range Interpretation Comments MCH (test code = MCH) 31.2 pg 27.0-31.[address] HospitalHsxoqwfLAZGFXKGZP1634-49-22 16:40:00 Test Item Value Reference Range Interpretation Comments Hgb (test code = Hgb) 14.0 14.0-18.[address] HospitalUluwbtwSHLJHNYBYD7169-90-85 16:40:00 Test Item Value Reference Range Interpretation Comments Hct (test code = Hct) 40.9 42.0-54.[address] HospitalOaclyhhECFMXZFZZD7648-76-52 16:40:00 Test Item Value Reference Range Interpretation Comments WBC (test code = WBC) 8.0 3.7-10.[address] HospitalYejikuzOITBCBXDEC1491-36-24 16:40:00 Test Item Value Reference Range Interpretation Comments RBC (test code = RBC) 4.50 4.70-6.10 L [facility]TpkkydxBfmbsnquzbvq2921-75-75 16:37:00 Test Item Value Reference Range Interpretation Comments Culture: Blood (test code = Culture: Blood) [facility]ballQmhwvegQcznesicddrr2226-14-52 16:37:00 Test Item Value Reference Range Interpretation Comments Culture: Blood (test code = Culture: Blood) [facility]ballXtzkvrmGpwhtihhzmof3868-70-18 16:37:00 Test Item Value Reference Range Interpretation Comments Culture: Blood (test code = Culture: Blood) [facility]ballClguhkvElbjgsgldroq0014-77-21 16:37:00 Test Item Value Reference Range Interpretation Comments Culture: Blood (test code = Culture: Blood) [facility]SmxhonjSPMIPHMCXP1652-94-09 15:56:00 Test Item Value Reference Range Interpretation Comments CDC-HIV 1/2 Ab (test Negative *NA*(09/30/2011 code = CDC-HIV 1/2 09:56:00) Ab) [facility] CenterFedsepgGZEFTYJPIA6332-62-23 15:56:00 Test Item Value Reference Range Interpretation Comments CDC-HIV 1/2 Ab (test Negative *NA*(09/30/2011 code = CDC-HIV 1/2 09:56:00) Ab) [facility]VttrqkfUFRTSZYKCI4736-46-47 15:56:00 Test Item Value Reference Range Interpretation Comments CDC-HIV 1/2 Ab (test Negative *NA*(09/30/2011 code = CDC-HIV 1/2 09:56:00) Ab) [facility] ResourcesVoitkwoDWVGSMDDPL7467-41-58 15:56:00 Test Item Value Reference Range Interpretation Comments CDC-HIV 1/2 Ab (test Negative *NA*(09/30/2011 code = CDC-HIV 1/2 09:56:00) Ab) [facility] GLUCOSE ILWLJGF2478-87-59 14:13:00 Test Item Value Reference Range Interpretation Comments Comment1 (test code = Comment1) Notify LINDA/ [facility] GLUCOSE YUEZHYP2412-45-54 14:13:00 Test Item Value Reference Range Interpretation Comments Gluc POC Lifscn (test code = Gluc POC 131 65-110 H Lifscn) [facility] GLUCOSE [id number] 14:13:00 Test Item Value Reference Range Interpretation Comments Comment1 (test code = Comment1) Notify LINDA/ [facility] GLUCOSE ZMGOKZL5860-30-84 14:13:00 Test Item Value Reference Range Interpretation Comments Gluc POC Lifscn (test code = Gluc POC 131 65-110 H Lifscn) [facility] GLUCOSE RJPZMYM2941-71-39 14:13:00 Test Item Value Reference Range Interpretation Comments Comment1 (test code = Comment1) Notify LINDA/ [facility] GLUCOSE QEMOLRW3601-80-61 14:13:00 Test Item Value Reference Range Interpretation Comments Gluc POC Lifscn (test code = Gluc POC 131 65-110 H Lifscn) [facility] GLUCOSE OZQWSWX1152-64-58 14:13:00 Test Item Value Reference Range Interpretation Comments Comment1 (test code = Comment1) Notify RN/ [facility] GLUCOSE IXNAYCJ4092-12-43 14:13:00 Test Item Value Reference Range Interpretation Comments Gluc POC Lifscn (test code = Gluc POC 131 65-110 H Lifscn) [facility] CenterNsideutVVXRAWEJV1862-50-44 09:30:00 Test Item Value Reference Range Interpretation Comments Lipase Lvl (test code = Lipase Lvl) 474 73-393 H [facility] CenterWhiahwpFRNBJKYYU0065-38-27 09:30:00 Test Item Value Reference Range Interpretation Comments Lipase Lvl (test code = Lipase Lvl) 474 73-393 H [facility] CenterDubwtbrKUZSFMTIP6835-05-81 09:30:00 Test Item Value Reference Range Interpretation Comments Lipase Lvl (test code = Lipase Lvl) 474 73-393 H [facility] CenterHazqckhYUCJIJWSG9088-72-75 09:30:00 Test Item Value Reference Range Interpretation Comments Lipase Lvl (test code = Lipase Lvl) 474 73-393 H [facility] GLUCOSE WMAMKCC3363-73-08 04:30:00 Test Item Value Reference Range Interpretation Comments Comment1 (test code = Comment1) Notify RN/ [facility] GLUCOSE RCAWVIA0874-48-22 04:30:00 Test Item Value Reference Range Interpretation Comments Gluc POC Lifscn (test code = Gluc POC 206 65-110 H Lifscn) [facility] GLUCOSE MJKSLPB5787-52-12 04:30:00 Test Item Value Reference Range Interpretation Comments Comment1 (test code = Comment1) Notify RN/ [facility] GLUCOSE [id number] 04:30:00 Test Item Value Reference Range Interpretation Comments Gluc POC Lifscn (test code = Gluc POC 206 65-110 H Lifscn) [facility] GLUCOSE HEIEFKC5889-03-54 04:30:00 Test Item Value Reference Range Interpretation Comments Comment1 (test code = Comment1) Notify RN/ [facility] GLUCOSE [id number] 04:30:00 Test Item Value Reference Range Interpretation Comments Gluc POC Lifscn (test code = Gluc POC 206 65-110 H Lifscn) [facility] GLUCOSE [id number] 04:30:00 Test Item Value Reference Range Interpretation Comments Comment1 (test code = Comment1) Notify RN/ [facility] GLUCOSE [id number] 04:30:00 Test Item Value Reference Range Interpretation Comments Gluc POC Lifscn (test code = Gluc POC 206 65-110 H Lifscn) [facility] GLUCOSE [id number] 22:58:00 Test Item Value Reference Range Interpretation Comments Comment1 (test code = Comment1) Notify RN/ [facility] GLUCOSE [id number] 22:58:00 Test Item Value Reference Range Interpretation Comments Gluc POC Lifscn (test code = Gluc POC 187 65-110 H Lifscn) [facility] GLUCOSE [id number] 22:58:00 Test Item Value Reference Range Interpretation Comments Comment1 (test code = Comment1) Notify RN/ [facility] GLUCOSE [id number] 22:58:00 Test Item Value Reference Range Interpretation Comments Gluc POC Lifscn (test code = Gluc POC 187 65-110 H Lifscn) [facility] GLUCOSE [id number] 22:58:00 Test Item Value Reference Range Interpretation Comments Comment1 (test code = Comment1) Notify RN/ [facility] GLUCOSE [id number] 22:58:00 Test Item Value Reference Range Interpretation Comments Gluc POC Lifscn (test code = Gluc POC 187 65-110 H Lifscn) [facility] GLUCOSE [id number] 22:58:00 Test Item Value Reference Range Interpretation Comments Comment1 (test code = Comment1) Notify RN/ [facility] GLUCOSE [id number] 22:58:00 Test Item Value Reference Range Interpretation Comments Gluc POC Lifscn (test code = Gluc POC 187 65-110 H Lifscn) [facility] CenterDnvzztnIIFMCMBXB1032-60-66 10:56:00 Test Item Value Reference Range Interpretation Comments Troponin-T (test code no gt See_Comment N [Auto mated message] The = Troponin-T) system which g enerated this result transmit quoc reference range : <=0.100. The reference r ana luisa was not used to interpr et this result as alisha l/abnormal. [facility] CenterFvjthnbVAQGUSEPS2925-62-08 10:56:00 Test Item Value Reference Range Interpretation Comments Total CK (test code = Total CK) 34 12-191 N [facility] CenterUlmssgiSUAGVYSZX7406-15-21 10:56:00 Test Item Value Reference Range Interpretation Comments Amylase Lvl (test code = Amylase Lvl) 139 25-115 H [facility] CenterOexwtxkULVAYJMQF2841-45-14 10:56:00 Test Item Value Reference Range Interpretation Comments CHD Risk (test code = CHD Risk) 5.79 4.00-7.30 N [facility] CenterXrpkaxbNOPIXAVGF4209-85-72 10:56:00 Test Item Value Reference Range Interpretation Comments LDL (test code = LDL) 91 See_Comment N [Auto mated message] The system which ge nerated this result transmit quoc reference range : <=129. The reference range was not used to interpr et this result as alisha l/abnormal. [facility] CenterFdpxbisGQHHGAEPY0994-75-66 10:56:00 Test Item Value Reference Range Interpretation Comments HDL (test code = HDL) 24 L [facility] CenterPcysdakTBMCBMFBG4502-42-45 10:56:00 Test Item Value Reference Range Interpretation Comments Trig (test code = 120 See_Comment N [Automate d message] The Trig) system which ge nerated this result transmit quoc reference range : <=200. The reference range was not used to interpr et this result as alisha l/abnormal. [facility] CenterZxujlowVFXUGVGLW8896-96-07 10:56:00 Test Item Value Reference Range Interpretation Comments Chol (test code = Chol) 139 120-200 N [facility] CenterEtixvjeTPEOETWJJ3902-66-08 10:56:00 Test Item Value Reference Range Interpretation Comments Lipase Lvl (test code = Lipase Lvl) 447 73-393 H [facility] CenterLyvpolgAVPBXFILP9219-68-14 10:56:00 Test Item Value Reference Range Interpretation Comments ALT (test code = ALT) 95 See_Comment H [Auto mated message] The system which ge nerated this result transmit quoc reference range : <=65. The reference range was not used to interpr et this result as alisha l/abnormal. [facility] CenterLsqgdkaRQFFRDKTY2654-56-56 10:56:00 Test Item Value Reference Range Interpretation Comments Albumin Lvl (test code = Albumin Lvl) 3.2 3.5-5.0 L [facility] CenterKilkrymLPRKHIMUF3208-10-19 10:56:00 Test Item Value Reference Range Interpretation Comments Bili Direct (test code 0.8 See_Comment H [Aut omated message] The = Bili Direct) system which generated this result tra nsmitted reference range : <=0.3. The reference r ana luisa was not used to int erpret this result as alisha l/abnormal. [facility]ZghobejDMLTEXKTR3670-68-77 10:56:00 Test Item Value Reference Range Interpretation Comments Alk Phos (test code = Alk Phos) 180 39-136 H [facility] CenterKwdlmpmENANDSFTZ6285-45-95 10:56:00 Test Item Value Reference Range Interpretation Comments Globulin (test code = Globulin) 3.0 2.0-4.0 N [facility] CenterSgzqmfzHHHULDUOS6774-33-00 10:56:00 Test Item Value Reference Range Interpretation Comments AST (test code = AST) 125 See_Comment H [Auto mated message] The system which ge nerated this result transmit quoc reference range : <=37. The reference range was not used to interpr et this result as alisha l/abnormal. [facility] CenterLkgguntRPKWZHEIF1446-99-31 10:56:00 Test Item Value Reference Range Interpretation Comments A/G Ratio (test code = A/G Ratio) 1.1 0.7-1.6 N [facility] CenterWcdomznPVEXZOKHB3483-08-34 10:56:00 Test Item Value Reference Range Interpretation Comments Bili Total (test code = Bili Total) 1.2 0.2-1.3 N [facility] CenterTxfxsbdCJYUAJJJV0211-40-03 10:56:00 Test Item Value Reference Range Interpretation Comments Total Protein (test code = Total 6.2 6.4-8.4 L Protein) [facility] CenterMlmijcrTBLRUFTIZ6360-20-05 10:56:00 Test Item Value Reference Range Interpretation Comments Bili Indirect (test 0.4 See_Comment N [Automa quoc message] The code = Bili Indirect) system which generated this result tra nsmitted reference range : <=1.0. The reference r ana luisa was not used to int erpret this result as normal/abnormal . [facility] CenterRmutdkmDRRYNVEML1803-55-76 10:56:00 Test Item Value Reference Range Interpretation Comments LDH (test code = LDH) 167 98-192 N [facility] CenterTqdmeniZRQWJOVFA7453-16-26 10:56:00 Test Item Value Reference Range Interpretation Comments UIBC (test code = UIBC) 158 110-370 N [facility] CenterPczalujELKXHLZVA8939-20-99 10:56:00 Test Item Value Reference Range Interpretation Comments % Satur Fe (test code = % Satur Fe) 38 12-57 N [facility] CenterZgpsdevCXMFXHWGO8381-73-71 10:56:00 Test Item Value Reference Range Interpretation Comments TIBC (test code = TIBC) 256 228-428 N [facility] CenterFmyytvlQSGUMFMTV8709-87-43 10:56:00 Test Item Value Reference Range Interpretation Comments Iron (test code = Iron) 98 45-160 N [facility] CenterUaoeeaiMYFJIQZCG8427-39-75 10:56:00 Test Item Value Reference Range Interpretation Comments Ca Ion (test code = Ca Ion) 1.13 1.16-1.30 L [facility] CenterHkdutjhXQCCKKWBF7434-94-51 10:56:00 Test Item Value Reference Range Interpretation Comments Ca Norm (test code = Ca Norm) 1.13 1.16-1.30 L [facility] CenterNktxlywDLTRLVLDO9864-83-40 10:56:00 Test Item Value Reference Range Interpretation Comments Ca Ion mgdL (test code = Ca Ion mgdL) 4.52 4.65-5.20 L [facility] CenterDczqrzaMVSKJOVVL8714-29-93 10:56:00 Test Item Value Reference Range Interpretation Comments Ca Norm mgdL (test code = Ca Norm mgdL) 4.52 4.65-5.20 L [facility] CenterQuoftpkKWBXNDVZI8713-84-34 10:56:00 Test Item Value Reference Range Interpretation Comments AGAP (test code = AGAP) 15.6 10.0-20.0 N [facility] CenterRqjlhfpAUNSUMAFI1303-21-24 10:56:00 Test Item Value Reference Range Interpretation Comments CO2 (test code = CO2) 24 24-32 N [facility] CenterDnoprtgZEXXXSLMK2854-48-51 10:56:00 Test Item Value Reference Range Interpretation Comments Chloride Lvl (test code = Chloride Lvl) 106 95-109 N [facility] CenterZwcnydmXQEWKRGDW3507-93-89 10:56:00 Test Item Value Reference Range Interpretation Comments Potassium Lvl (test code = Potassium 4.6 3.5-5.1 N Lvl) [facility] CenterVkazqsgVBJWPCXNN2577-88-56 10:56:00 Test Item Value Reference Range Interpretation Comments Sodium Lvl (test code = Sodium Lvl) 141 135-145 N [facility] CenterZznwkceHGTARMTOQ0932-67-14 10:56:00 Test Item Value Reference Range Interpretation Comments Calcium Lvl (test code = Calcium Lvl) 8.7 8.5-10.5 N [facility] CenterKsenbmqCJSXIGVUW8247-48-77 10:56:00 Test Item Value Reference Range Interpretation Comments BUN (test code = BUN) 14 7-22 N [facility] CenterVtkmwarOPWJVEFYG0261-83-53 10:56:00 Test Item Value Reference Range Interpretation Comments Glucose Lvl (test code = Glucose Lvl) 111 [facility] CenterWxjlgprXVWMQERLH1001-37-96 10:56:00 Test Item Value Reference Range Interpretation Comments Creatinine Lvl (test code = Creatinine 1.1 0.5-1.4 N Lvl) [facility] CenterOgnzlehRVAPUMHPE8535-59-75 10:56:00 Test Item Value Reference Range Interpretation Comments Phosphorus (test code = Phosphorus) 4.0 2.5-4.5 N [facility] CenterJhupisoNYRRVOPBV2542-29-76 10:56:00 Test Item Value Reference Range Interpretation Comments Magnesium Lvl (test code = Magnesium 1.8 1.8-2.4 N Lvl) [facility] CenterDoggujmGDQFJIKTE3426-67-22 10:56:00 Test Item Value Reference Range Interpretation Comments Troponin-I (test code no gt See_Comment N [Auto mated message] The = Troponin-I) system which g enerated this result transmit quoc reference range : <=0.40. The reference r ana luisa was not used to interpr et this result as alisha l/abnormal. [facility] CenterImwfqmpCXLOOTJRU2187-08-56 10:56:00 Test Item Value Reference Range Interpretation Comments Myoglobin (test code = Myoglobin) 47 25-[address] [facility] HospitalSvjqasqHQOYAXRMVU7756-18-89 10:56:00 Test Item Value Reference Range Interpretation Comments PT (test code = PT) 14.0 s 12.0-14.[address] [facility] HospitalIhpxeanWAICVWHUUT7840-71-33 10:56:00 Test Item Value Reference Range Interpretation Comments PTT (test code = PTT) 28.2 s 22.9-35.[address] [facility] [facility] HospitalYilnldpESSRJXRVUI3060-01-10 10:56:00 Test Item Value Reference Range Interpretation Comments INR (test code = INR) 1.08 0.85-1.[address] [facility] [facility] HospitalMorkomgHGEIDHXSEP5527-67-58 10:56:00 Test Item Value Reference Range Interpretation Comments Hct (test code = Hct) 37.6 42.0-54.[address] [facility] HospitalFuqvsehBMTFGAOKCV8669-85-75 10:56:00 Test Item Value Reference Range Interpretation Comments Hgb (test code = Hgb) 12.9 14.0-18.[address] HospitalJwkzxibAMXTWSIGGW4770-99-94 10:56:00 Test Item Value Reference Range Interpretation Comments MCHC (test code = MCHC) 34.4 32.0-36.[address] HospitalHxchxhlOLSXSBEITE9304-24-74 10:56:00 Test Item Value Reference Range Interpretation Comments MCH (test code = MCH) 31.4 pg 27.0-31.[address] [facility] HospitalEbhxppuYHWNFGJGXK0487-98-62 10:56:00 Test Item Value Reference Range Interpretation Comments MCV (test code = MCV) 91.3 80.0-94.[address] [facility] [facility] HospitalCmjlicfHGXNJRGLIH1242-09-62 10:56:00 Test Item Value Reference Range Interpretation Comments Platelet (test code = Platelet) 312 133-[address] [facility] HospitalIkvbyibECUBPWXXGD8629-97-46 10:56:00 Test Item Value Reference Range Interpretation Comments RDW (test code = RDW) 13.4 11.5-14.[address] [facility] [facility] HospitalNpjzvoxGZOACJQNOS3826-04-61 10:56:00 Test Item Value Reference Range Interpretation Comments MPV (test code = MPV) 6.9 7.4-10.[address] [facility] HospitalIhzfjevORTQQUYWBM7413-60-70 10:56:00 Test Item Value Reference Range Interpretation Comments WBC (test code = WBC) 5.1 3.7-10.[address] [facility] [facility] HospitalAwjilxeNQKUJQUGGC6607-65-04 10:56:00 Test Item Value Reference Range Interpretation Comments RBC (test code = RBC) 4.12 4.70-6.[address] [facility] [facility] HospitalNzyfxpvADLTJOTULD3443-26-03 10:56:00 Test Item Value Reference Range Interpretation Comments Segs-Bands # (test code = Segs-Bands #) 2.4 1.5-8.[address] [facility] HospitalOimyiekLOUCYPGVQZ4369-86-96 10:56:00 Test Item Value Reference Range Interpretation Comments Lymphocytes # (test code = Lymphocytes 1.4 1.0-5.5 N #) [facility] HospitalTpsiqszEQSPITZULE0125-67-40 10:56:00 Test Item Value Reference Range Interpretation Comments Basophils (test code = 0.4 See_Comment N [Aut omated message] The Basophils) system which ge nerated this result tra nsmitted reference range : <=1.0. The reference r ana luisa was not used to int erpret this result as normal/abnormal . [facility] HospitalTcjqghpKEBNPVPPQL9452-55-65 10:56:00 Test Item Value Reference Range Interpretation Comments Monocytes # (test code 1.0 See_Comment H [Aut omated message] The = Monocytes #) system which generated this result tra nsmitted reference range : <=0.8. The reference r ana luisa was not used to int erpret this result as normal/abnormal . [facility] HospitalAwcgxrjWNSZWCFVDK3752-51-31 10:56:00 Test Item Value Reference Range Interpretation Comments Eosinophils # (test code 0.2 See_Comment N [A utomated message] The = Eosinophils #) system wh h generated this result tra nsmitted reference range : <=0.5. The reference r ana luisa was not used to int erpret this result as normal/abnormal . [facility] HospitalVwirtnsEFMEZUSCMP9199-76-57 10:56:00 Test Item Value Reference Range Interpretation Comments Basophils # (test code 0.0 See_Comment N [Aut omated message] The = Basophils #) system which generated this result tra nsmitted reference range : <=0.2. The reference r ana luisa was not used to int erpret this result as normal/abnormal . [facility] HospitalYunykfqDZMUZSIUTJ1983-11-31 10:56:00 Test Item Value Reference Range Interpretation Comments Monocytes (test code = Monocytes) 19.6 2.0-12.[address] [facility] [facility] HospitalJwvyjqeCSPCVUVEGM9079-94-86 10:56:00 Test Item Value Reference Range Interpretation Comments Lymphocytes (test code = Lymphocytes) 28.4 20.0-40.[address] HospitalHuuectzOKHLNLTXMQ9693-34-95 10:56:00 Test Item Value Reference Range Interpretation Comments Segs (test code = Segs) 47.8 45.0-75.[address] [facility] [facility] HospitalPrymcrkRYWWXVLTQT5369-66-98 10:56:00 Test Item Value Reference Range Interpretation Comments Eosinophils (test code = 3.8 See_Comment N [A utomated message] The Eosinophils) system which ge nerated this result tra nsmitted reference range : <=4.0. The reference r ana luisa was not used to int erpret this result as normal/abnormal . [facility] CenterVjzmzekHZOZHTJYA2631-82-32 10:56:00 Test Item Value Reference Range Interpretation Comments Troponin-T (test code no gt See_Comment N [Auto mated message] The = Troponin-T) system which g enerated this result transmit quoc reference range : <=0.100. The reference r ana luisa was not used to interpr et this result as alisha l/abnormal. [facility] CenterPzmzwvvFRWUTKHBJ9574-78-27 10:56:00 Test Item Value Reference Range Interpretation Comments Total CK (test code = Total CK) 34 12-191 N [facility] CenterOplielzGUAFJMCQF7829-29-70 10:56:00 Test Item Value Reference Range Interpretation Comments Amylase Lvl (test code = Amylase Lvl) 139 25-115 H [facility] CenterRsooafrHNTTZIQPN5615-14-66 10:56:00 Test Item Value Reference Range Interpretation Comments CHD Risk (test code = CHD Risk) 5.79 4.00-7.30 N [facility] CenterKzmcoedJPUCFSGFG4924-40-47 10:56:00 Test Item Value Reference Range Interpretation Comments LDL (test code = LDL) 91 See_Comment N [Auto mated message] The system which ge nerated this result transmit quoc reference range : <=129. The reference range was not used to interpr et this result as alisha l/abnormal. [facility] CenterMfjtpvaNDZJGNOLT0917-63-49 10:56:00 Test Item Value Reference Range Interpretation Comments HDL (test code = HDL) 24 L [facility] CenterTflgdkcNCWLWWTYA9444-93-76 10:56:00 Test Item Value Reference Range Interpretation Comments Trig (test code = 120 See_Comment N [Automate d message] The Trig) system which ge nerated this result transmit quoc reference range : <=200. The reference range was not used to interpr et this result as alisha l/abnormal. [facility] CenterTytfuioZRXDIIYQG3864-47-06 10:56:00 Test Item Value Reference Range Interpretation Comments Chol (test code = Chol) 139 120-200 N [facility] CenterVkqouwuLLLHXFBZH0947-32-31 10:56:00 Test Item Value Reference Range Interpretation Comments Lipase Lvl (test code = Lipase Lvl) 447 73-393 H [facility] CenterJttpwsxTLGLXLLUY3367-24-94 10:56:00 Test Item Value Reference Range Interpretation Comments ALT (test code = ALT) 95 See_Comment H [Auto mated message] The system which ge nerated this result transmit quoc reference range : <=65. The reference range was not used to interpr et this result as alisha l/abnormal. [facility] CenterHriulkmRWZRJNTTX0239-14-83 10:56:00 Test Item Value Reference Range Interpretation Comments Albumin Lvl (test code = Albumin Lvl) 3.2 3.5-5.0 L [facility] CenterKlffrfjCOTBQBPPL4419-92-18 10:56:00 Test Item Value Reference Range Interpretation Comments Bili Direct (test code 0.8 See_Comment H [Aut omated message] The = Bili Direct) system which generated this result tra nsmitted reference range : <=0.3. The reference r ana luisa was not used to int erpret this result as alisha l/abnormal. [facility] CenterSzqlcbzCYBQUMFJZ2737-59-48 10:56:00 Test Item Value Reference Range Interpretation Comments Alk Phos (test code = Alk Phos) 180 39-136 H [facility] CenterEawiyerUFUMXGYIQ4418-17-05 10:56:00 Test Item Value Reference Range Interpretation Comments Globulin (test code = Globulin) 3.0 2.0-4.0 N [facility] CenterAosnhtzZWMAEDIMS3690-61-69 10:56:00 Test Item Value Reference Range Interpretation Comments AST (test code = AST) 125 See_Comment H [Auto mated message] The system which ge nerated this result transmit quoc reference range : <=37. The reference range was not used to interpr et this result as alisha l/abnormal. [facility] CenterEepqotfWKCRDBQVF2998-79-39 10:56:00 Test Item Value Reference Range Interpretation Comments A/G Ratio (test code = A/G Ratio) 1.1 0.7-1.6 N [facility] CenterGoaullmOKPGWRGJH8527-89-57 10:56:00 Test Item Value Reference Range Interpretation Comments Bili Total (test code = Bili Total) 1.2 0.2-1.3 N [facility] CenterYxlalmvSQIFGAYKR1217-28-82 10:56:00 Test Item Value Reference Range Interpretation Comments Total Protein (test code = Total 6.2 6.4-8.4 L Protein) [facility] CenterWdrfcbaGRRBFPOEV2179-20-89 10:56:00 Test Item Value Reference Range Interpretation Comments Bili Indirect (test 0.4 See_Comment N [Automa quoc message] The code = Bili Indirect) system which generated this result tra nsmitted reference range : <=1.0. The reference r ana luisa was not used to int erpret this result as normal/abnormal . [facility] CenterJdlwdlfNKIEBCZDT8757-20-65 10:56:00 Test Item Value Reference Range Interpretation Comments LDH (test code = LDH) 167 98-192 N [facility] CenterHaxvozhFYICNRBBS6260-44-82 10:56:00 Test Item Value Reference Range Interpretation Comments UIBC (test code = UIBC) 158 110-370 N [facility] CenterNdeahcyQVWJXOAIJ7662-55-46 10:56:00 Test Item Value Reference Range Interpretation Comments % Satur Fe (test code = % Satur Fe) 38 12-57 N [facility] CenterTgdecdvPRDKBHLBG5497-98-90 10:56:00 Test Item Value Reference Range Interpretation Comments TIBC (test code = TIBC) 256 228-428 N [facility] CenterXxwacvrQZCDBCTPR1643-70-44 10:56:00 Test Item Value Reference Range Interpretation Comments Iron (test code = Iron) 98 45-160 N [facility] CenterAjmqxwfPABTKFYVV1781-92-52 10:56:00 Test Item Value Reference Range Interpretation Comments Ca Ion (test code = Ca Ion) 1.13 1.16-1.30 L [facility] CenterZulwjbiCSSVWBHPY4240-12-59 10:56:00 Test Item Value Reference Range Interpretation Comments Ca Norm (test code = Ca Norm) 1.13 1.16-1.30 L [facility] CenterPfhldsdRBLIAMEPV6170-69-29 10:56:00 Test Item Value Reference Range Interpretation Comments Ca Ion mgdL (test code = Ca Ion mgdL) 4.52 4.65-5.20 L [facility] CenterAbixjodVNROKXHVB6689-10-79 10:56:00 Test Item Value Reference Range Interpretation Comments Ca Norm mgdL (test code = Ca Norm mgdL) 4.52 4.65-5.20 [facility]2012-01-27 10:56:00 Test Item Value Reference Range Interpretation Comments AGAP (test code = AGAP) 15.6 10.0-20.0 N [facility] CenterGpotjynRARBYAXRU9331-24-78 10:56:00 Test Item Value Reference Range Interpretation Comments CO2 (test code = CO2) 24 24-32 N [facility] CenterDtpkdsoMMJVXICEJ4668-21-11 10:56:00 Test Item Value Reference Range Interpretation Comments Chloride Lvl (test code = Chloride Lvl) 106 95-109 N [facility] CenterXcgzaneLWTNEKQVZ3945-33-81 10:56:00 Test Item Value Reference Range Interpretation Comments Potassium Lvl (test code = Potassium 4.6 3.5-5.1 N Lvl) [facility] CenterDrbswmxGEMGISMND8425-70-24 10:56:00 Test Item Value Reference Range Interpretation Comments Sodium Lvl (test code = Sodium Lvl) 141 135-145 N [facility] CenterJqubzzpRGVTZHJJO2213-34-04 10:56:00 Test Item Value Reference Range Interpretation Comments Calcium Lvl (test code = Calcium Lvl) 8.7 8.5-10.5 N [facility] CenterWrqkpbyBSBGTBCBC9791-85-94 10:56:00 Test Item Value Reference Range Interpretation Comments BUN (test code = BUN) 14 7-22 N [facility] CenterBgrkzmeKVXBUDAOL6387-73-80 10:56:00 Test Item Value Reference Range Interpretation Comments Glucose Lvl (test code = Glucose Lvl) 111 [facility] CenterEefjuiwEDSZMXWRF5780-86-41 10:56:00 Test Item Value Reference Range Interpretation Comments Creatinine Lvl (test code = Creatinine 1.1 0.5-1.4 N Lvl) [facility] CenterGxiwmmhOQOJQPABY2816-95-97 10:56:00 Test Item Value Reference Range Interpretation Comments Phosphorus (test code = Phosphorus) 4.0 2.5-4.5 N [facility] CenterVapktgmAXIRHQQYM4920-84-58 10:56:00 Test Item Value Reference Range Interpretation Comments Magnesium Lvl (test code = Magnesium 1.8 1.8-2.4 N Lvl) [facility] CenterCtlsycdKWWOFOJRF3564-90-48 10:56:00 Test Item Value Reference Range Interpretation Comments Troponin-I (test code no gt See_Comment N [Auto mated message] The = Troponin-I) system which g enerated this result transmit quoc reference range : <=0.40. The reference r ana luisa was not used to interpr et this result as alisha l/abnormal. [facility] CenterLefgcbhMACALUMJR0622-02-09 10:56:00 Test Item Value Reference Range Interpretation Comments Myoglobin (test code = Myoglobin) 47 25-[address] [facility] HospitalZdctlxsOUOSSNOCKJ4324-73-84 10:56:00 Test Item Value Reference Range Interpretation Comments PT (test code = PT) 14.0 s 12.0-14.[address] [facility] HospitalRrhoniiIUXWZFXGVO9714-51-24 10:56:00 Test Item Value Reference Range Interpretation Comments PTT (test code = PTT) 28.2 s 22.9-35.[address] [facility] HospitalAxzhnbtZSTROKGHBG4031-21-64 10:56:00 Test Item Value Reference Range Interpretation Comments INR (test code = INR) 1.08 0.85-1.[address] HospitalGcwaoriTYCDJQZMSG8362-43-07 10:56:00 Test Item Value Reference Range Interpretation Comments Hct (test code = Hct) 37.6 42.0-54.[address] [facility] HospitalIwqfaouJJAABNNQIH5534-44-33 10:56:00 Test Item Value Reference Range Interpretation Comments Hgb (test code = Hgb) 12.9 14.0-18.[address] [facility] HospitalGtqvvedFWKNYYXMCD7427-10-46 10:56:00 Test Item Value Reference Range Interpretation Comments MCHC (test code = MCHC) 34.4 32.0-36.[address] HospitalSzundslCHFKCKLDTB6874-91-45 10:56:00 Test Item Value Reference Range Interpretation Comments MCH (test code = MCH) 31.4 pg 27.0-31.[address] HospitalMtcrkozICAEQFEUUG1262-25-36 10:56:00 Test Item Value Reference Range Interpretation Comments MCV (test code = MCV) 91.3 80.0-94.[address] HospitalOradywcOSMQGIRHHE8175-38-13 10:56:00 Test Item Value Reference Range Interpretation Comments Platelet (test code = Platelet) 312 133-[address] [facility] HospitalWpmkewfIAXXAMQZZV4004-58-35 10:56:00 Test Item Value Reference Range Interpretation Comments RDW (test code = RDW) 13.4 11.5-14.[address] HospitalQspbdcxCPQRHUPTYC5387-66-41 10:56:00 Test Item Value Reference Range Interpretation Comments MPV (test code = MPV) 6.9 7.4-10.[address] HospitalKrciltmSALJVXBFFG7538-46-40 10:56:00 Test Item Value Reference Range Interpretation Comments WBC (test code = WBC) 5.1 3.7-10.[address] [facility] HospitalQvqeazcQUGAJWXNZG3523-02-84 10:56:00 Test Item Value Reference Range Interpretation Comments RBC (test code = RBC) 4.12 4.70-6.[address] HospitalPcbfdtjKQGRZMCWJQ4822-53-92 10:56:00 Test Item Value Reference Range Interpretation Comments Segs-Bands # (test code = Segs-Bands #) 2.4 1.5-8.[address] [facility] HospitalQuchwwmEVCHJXORNA6494-83-34 10:56:00 Test Item Value Reference Range Interpretation Comments Lymphocytes # (test code = Lymphocytes 1.4 1.0-5.5 N #) [facility] HospitalRjfdaoqMKDNKQWJAT1254-08-87 10:56:00 Test Item Value Reference Range Interpretation Comments Basophils (test code = 0.4 See_Comment N [Aut omated message] The Basophils) system which ge nerated this result tra nsmitted reference range : <=1.0. The reference r ana luisa was not used to int erpret this result as normal/abnormal . [facility] HospitalNgewqfiUWYRRWLJEE2752-40-44 10:56:00 Test Item Value Reference Range Interpretation Comments Monocytes # (test code 1.0 See_Comment H [Aut omated message] The = Monocytes #) system which generated this result tra nsmitted reference range : <=0.8. The reference r ana luisa was not used to int erpret this result as normal/abnormal . [facility] HospitalTghuknfCQXXIXFASS7556-64-61 10:56:00 Test Item Value Reference Range Interpretation Comments Eosinophils # (test code 0.2 See_Comment N [A utomated message] The = Eosinophils #) system [facility] h generated this result tra nsmitted reference range : <=0.5. The reference r ana luisa was not used to int erpret this result as normal/abnormal . [facility] HospitalVmgltztDRJFRRAMIQ7974-47-03 10:56:00 Test Item Value Reference Range Interpretation Comments Basophils # (test code 0.0 See_Comment N [Aut omated message] The = Basophils #) system which generated this result tra nsmitted reference range : <=0.2. The reference r ana luisa was not used to int erpret this result as normal/abnormal . [facility] HospitalWtvqwncPTTIXIUGRP0151-90-82 10:56:00 Test Item Value Reference Range Interpretation Comments Monocytes (test code = Monocytes) 19.6 2.0-12.[address] HospitalUgtgvgcXXELOZJCIC9474-86-27 10:56:00 Test Item Value Reference Range Interpretation Comments Lymphocytes (test code = Lymphocytes) 28.4 20.0-40.[address] [facility] HospitalXovcmywYAPFWHMYRQ6678-52-40 10:56:00 Test Item Value Reference Range Interpretation Comments Segs (test code = Segs) 47.8 45.0-75.[address] [facility] HospitalOcgkhswCFWRLNHUDA7784-25-33 10:56:00 Test Item Value Reference Range Interpretation Comments Eosinophils (test code = 3.8 See_Comment N [A utomated message] The Eosinophils) system which ge nerated this result tra nsmitted reference range : <=4.0. The reference r ana luisa was not used to int erpret this result as normal/abnormal . [facility] CenterLndloioCAQNXSXRK6246-31-12 10:56:00 Test Item Value Reference Range Interpretation Comments Troponin-T (test code no gt See_Comment N [Auto mated message] The = Troponin-T) system which g enerated this result transmit quoc reference range : <=0.100. The reference r ana luisa was not used to interpr et this result as alisha l/abnormal. [facility]LmistuaFNTOMXUFY8141-46-88 10:56:00 Test Item Value Reference Range Interpretation Comments Total CK (test code = Total CK) 34 12-191 N [facility] CenterEbsvhyvURNAEKXMC9462-25-76 10:56:00 Test Item Value Reference Range Interpretation Comments Amylase Lvl (test code = Amylase Lvl) 139 25-115 H [facility] CenterEglbashTAUKFWOAJ7416-67-18 10:56:00 Test Item Value Reference Range Interpretation Comments CHD Risk (test code = CHD Risk) 5.79 4.00-7.30 N [facility] CenterYnslejiYAADUYODI9853-26-03 10:56:00 Test Item Value Reference Range Interpretation Comments LDL (test code = LDL) 91 See_Comment N [Auto mated message] The system which ge nerated this result transmit quoc reference range : <=129. The reference range was not used to interpr et this result as alisha l/abnormal. [facility] CenterXmewgilHKTRPHUHX1275-98-41 10:56:00 Test Item Value Reference Range Interpretation Comments HDL (test code = HDL) 24 L [facility] CenterMudmirrXOEHDASBI6105-53-88 10:56:00 Test Item Value Reference Range Interpretation Comments Trig (test code = 120 See_Comment N [Automate d message] The Trig) system which ge nerated this result transmit quoc reference range : <=200. The reference range was not used to interpr et this result as alisha l/abnormal. [facility]RgchsbvTCCGDQTMF5728-47-62 10:56:00 Test Item Value Reference Range Interpretation Comments Chol (test code = Chol) 139 120-200 N [facility] CenterTsyfoidGAKDQMXNM4061-74-71 10:56:00 Test Item Value Reference Range Interpretation Comments Lipase Lvl (test code = Lipase Lvl) 447 73-393 H [facility] CenterOerhmffVIOXZZLFG4886-05-40 10:56:00 Test Item Value Reference Range Interpretation Comments ALT (test code = ALT) 95 See_Comment H [Auto mated message] The system which ge nerated this result transmit quoc reference range : <=65. The reference range was not used to interpr et this result as alisha l/abnormal. [facility] CenterRfotvgmGUEWPXTCW7992-84-71 10:56:00 Test Item Value Reference Range Interpretation Comments Albumin Lvl (test code = Albumin Lvl) 3.2 3.5-5.0 L [facility] CenterKeshizhJDDKHNGRP9036-51-74 10:56:00 Test Item Value Reference Range Interpretation Comments Bili Direct (test code 0.8 See_Comment H [Aut omated message] The = Bili Direct) system which generated this result tra nsmitted reference range : <=0.3. The reference r ana luisa was not used to int erpret this result as alisha l/abnormal. [facility] CenterReoojdwPNPAJDIWA3736-51-84 10:56:00 Test Item Value Reference Range Interpretation Comments Alk Phos (test code = Alk Phos) 180 39-136 H [facility] CenterRihjqihFAMDZSJKM1495-51-60 10:56:00 Test Item Value Reference Range Interpretation Comments Globulin (test code = Globulin) 3.0 2.0-4.0 N [facility] CenterNtrabciZVIVUPFPD7847-33-63 10:56:00 Test Item Value Reference Range Interpretation Comments AST (test code = AST) 125 See_Comment H [Auto mated message] The system which ge nerated this result transmit quoc reference range : <=37. The reference range was not used to interpr et this result as alisha l/abnormal. [facility] CenterClnucfqYEFJIURBK1048-19-29 10:56:00 Test Item Value Reference Range Interpretation Comments A/G Ratio (test code = A/G Ratio) 1.1 0.7-1.6 N [facility] CenterJhwqefjLSBHXENZX6085-15-54 10:56:00 Test Item Value Reference Range Interpretation Comments Bili Total (test code = Bili Total) 1.2 0.2-1.3 N [facility] CenterDrggemfNXQRJMVKF8304-52-00 10:56:00 Test Item Value Reference Range Interpretation Comments Total Protein (test code = Total 6.2 6.4-8.4 L Protein) [facility] CenterFmszcjhRNPHIVRWL7810-72-10 10:56:00 Test Item Value Reference Range Interpretation Comments Bili Indirect (test 0.4 See_Comment N [Automa quoc message] The code = Bili Indirect) system which generated this result tra nsmitted reference range : <=1.0. The reference r ana luisa was not used to int erpret this result as normal/abnormal . [facility] CenterBwwqulmXAOEIHGOZ3402-82-27 10:56:00 Test Item Value Reference Range Interpretation Comments LDH (test code = LDH) 167 98-192 N [facility] CenterHtzbhstGVRWDXMTI8658-94-29 10:56:00 Test Item Value Reference Range Interpretation Comments UIBC (test code = UIBC) 158 110-370 N [facility] CenterCqmcxczWVQAYOREJ2514-42-71 10:56:00 Test Item Value Reference Range Interpretation Comments % Satur Fe (test code = % Satur Fe) 38 12-57 N [facility] CenterDxjkullIHCQIVFOA0870-57-73 10:56:00 Test Item Value Reference Range Interpretation Comments TIBC (test code = TIBC) 256 228-428 N [facility] CenterXbrsouhJMFONYJVG2438-16-44 10:56:00 Test Item Value Reference Range Interpretation Comments Iron (test code = Iron) 98 45-160 N [facility] CenterVhdumilBPAOQTJIK8477-03-90 10:56:00 Test Item Value Reference Range Interpretation Comments Ca Ion (test code = Ca Ion) 1.13 1.16-1.30 L [facility] CenterRzczpirLRSWPYBAL9525-70-03 10:56:00 Test Item Value Reference Range Interpretation Comments Ca Norm (test code = Ca Norm) 1.13 1.16-1.30 L [facility] CenterRburxgbNLEFNOMXV2967-85-38 10:56:00 Test Item Value Reference Range Interpretation Comments Ca Ion mgdL (test code = Ca Ion mgdL) 4.52 4.65-5.20 L [facility] CenterSkcafyxHGLMKCHCC0969-69-12 10:56:00 Test Item Value Reference Range Interpretation Comments Ca Norm mgdL (test code = Ca Norm mgdL) 4.52 4.65-5.20 L [facility] CenterNyhbmbyMETREJDVI3460-61-26 10:56:00 Test Item Value Reference Range Interpretation Comments AGAP (test code = AGAP) 15.6 10.0-20.0 N [facility] CenterTlpiiyqPAJDNRYTH5758-94-47 10:56:00 Test Item Value Reference Range Interpretation Comments CO2 (test code = CO2) 24 24-32 N [facility] CenterOnohagcUKKMLAWKZ4738-81-23 10:56:00 Test Item Value Reference Range Interpretation Comments Chloride Lvl (test code = Chloride Lvl) 106 95-109 N [facility] CenterXtyqiiiZJOSCDITC1772-31-66 10:56:00 Test Item Value Reference Range Interpretation Comments Potassium Lvl (test code = Potassium 4.6 3.5-5.1 N Lvl) [facility] CenterWdzhcdlNOXZDXBFS4916-02-83 10:56:00 Test Item Value Reference Range Interpretation Comments Sodium Lvl (test code = Sodium Lvl) 141 135-145 N [facility] CenterYgvxqnsZABGATSKX5335-10-94 10:56:00 Test Item Value Reference Range Interpretation Comments Calcium Lvl (test code = Calcium Lvl) 8.7 8.5-10.5 N [facility] CenterRsjzcciANTMFGJFU4317-27-85 10:56:00 Test Item Value Reference Range Interpretation Comments BUN (test code = BUN) 14 7-22 N [facility] CenterKhmmhrsAVIOWCJFF0574-64-91 10:56:00 Test Item Value Reference Range Interpretation Comments Glucose Lvl (test code = Glucose Lvl) 111 [facility] CenterPrhkorgCWZRFXLOS8377-68-44 10:56:00 Test Item Value Reference Range Interpretation Comments Creatinine Lvl (test code = Creatinine 1.1 0.5-1.4 N Lvl) [facility] CenterMaefoxlLEEDHVNIU2960-85-31 10:56:00 Test Item Value Reference Range Interpretation Comments Phosphorus (test code = Phosphorus) 4.0 2.5-4.5 N [facility] CenterGgdlblbXTJIBVRKL1580-63-10 10:56:00 Test Item Value Reference Range Interpretation Comments Magnesium Lvl (test code = Magnesium 1.8 1.8-2.4 N Lvl) [facility] CenterTniexznWHWVQLGFM8839-02-39 10:56:00 Test Item Value Reference Range Interpretation Comments Troponin-I (test code no gt See_Comment N [Auto mated message] The = Troponin-I) system which g enerated this result transmit quoc reference range : <=0.40. The reference r ana luisa was not used to interpr et this result as alisha l/abnormal. [facility] CenterSzsenafGQYVRNYJZ7196-22-23 10:56:00 Test Item Value Reference Range Interpretation Comments Myoglobin (test code = Myoglobin) 47 25-[address] [facility] HospitalUixbehiVZMSXLCHMZ1694-99-33 10:56:00 Test Item Value Reference Range Interpretation Comments PT (test code = PT) 14.0 s 12.0-14.[address] [facility] [facility] HospitalVcosqmnNSHOOVLAYD3942-20-68 10:56:00 Test Item Value Reference Range Interpretation Comments PTT (test code = PTT) 28.2 s 22.9-35.[address] [facility] [facility] HospitalOgimjjmWQLGBUJQLD1711-29-45 10:56:00 Test Item Value Reference Range Interpretation Comments INR (test code = INR) 1.08 0.85-1.[address] [facility] [facility] HospitalFuzszedKJDCUKTRQS6591-79-08 10:56:00 Test Item Value Reference Range Interpretation Comments Hct (test code = Hct) 37.6 42.0-54.[address] HospitalBxttukfUSCCBPQBRQ5511-50-25 10:56:00 Test Item Value Reference Range Interpretation Comments Hgb (test code = Hgb) 12.9 14.0-18.[address] HospitalQxjnozjNUBUBNQFVY9532-52-53 10:56:00 Test Item Value Reference Range Interpretation Comments MCHC (test code = MCHC) 34.4 32.0-36.[address] HospitalWxccbokDXZYDZUBUK1554-18-82 10:56:00 Test Item Value Reference Range Interpretation Comments MCH (test code = MCH) 31.4 pg 27.0-31.[address] HospitalRxgcvohCFQLOMBLBZ4758-66-60 10:56:00 Test Item Value Reference Range Interpretation Comments MCV (test code = MCV) 91.3 80.0-94.[address] [facility] HospitalZwplxmnOODSKBQLCJ3208-58-91 10:56:00 Test Item Value Reference Range Interpretation Comments Platelet (test code = Platelet) 312 133-[address] [facility] HospitalNrjrzvzWABVOGYSHH9001-67-17 10:56:00 Test Item Value Reference Range Interpretation Comments RDW (test code = RDW) 13.4 11.5-14.[address] [facility] [facility] HospitalFwjryftCXHCDEDUAW4573-06-86 10:56:00 Test Item Value Reference Range Interpretation Comments MPV (test code = MPV) 6.9 7.4-10.[address] [facility] HospitalVoytalwRGDHVYTPQS7013-55-64 10:56:00 Test Item Value Reference Range Interpretation Comments WBC (test code = WBC) 5.1 3.7-10.[address] [facility] [facility] HospitalVuyujjqHLOIMOKDDN1085-89-33 10:56:00 Test Item Value Reference Range Interpretation Comments RBC (test code = RBC) 4.12 4.70-6.[address] HospitalIrcvusbPWRNSSRCXQ1330-99-95 10:56:00 Test Item Value Reference Range Interpretation Comments Segs-Bands # (test code = Segs-Bands #) 2.4 1.5-8.[address] [facility] HospitalUphmtmtYSBLIAAKNR4078-72-87 10:56:00 Test Item Value Reference Range Interpretation Comments Lymphocytes # (test code = Lymphocytes 1.4 1.0-5.5 N #) [facility] HospitalImqlolhFYLWHDRNEW6098-55-90 10:56:00 Test Item Value Reference Range Interpretation Comments Basophils (test code = 0.4 See_Comment N [Aut omated message] The Basophils) system which ge nerated this result tra nsmitted reference range : <=1.0. The reference r ana luisa was not used to int erpret this result as normal/abnormal . [facility] HospitalPmkguweRUAXKUMTSR3669-34-46 10:56:00 Test Item Value Reference Range Interpretation Comments Monocytes # (test code 1.0 See_Comment H [Aut omated message] The = Monocytes #) system which generated this result tra nsmitted reference range : <=0.8. The reference r ana luisa was not used to int erpret this result as normal/abnormal . [facility] HospitalRwdstbyRYWVXNRVSH6072-65-38 10:56:00 Test Item Value Reference Range Interpretation Comments Eosinophils # (test code 0.2 See_Comment N [A utomated message] The = Eosinophils #) system whic h generated this result tra nsmitted reference range : <=0.5. The reference r ana luisa was not used to int erpret this result as normal/abnormal . [facility] HospitalGfurjezRUIFDSLUHH4619-99-84 10:56:00 Test Item Value Reference Range Interpretation Comments Basophils # (test code 0.0 See_Comment N [Aut omated message] The = Basophils #) system which generated this result tra nsmitted reference range : <=0.2. The reference r ana luisa was not used to int erpret this result as normal/abnormal . [facility] HospitalSslygmaBTMKYXSKXG5099-69-54 10:56:00 Test Item Value Reference Range Interpretation Comments Monocytes (test code = Monocytes) 19.6 2.0-12.[address] HospitalShyuqxnTEOXLNKXJC7648-70-94 10:56:00 Test Item Value Reference Range Interpretation Comments Lymphocytes (test code = Lymphocytes) 28.4 20.0-40.[address] HospitalAqmqkqwOLOYYEBCIM5870-03-21 10:56:00 Test Item Value Reference Range Interpretation Comments Segs (test code = Segs) 47.8 45.0-75.[address] [facility] HospitalYanuvlmDRNUGDCKAD1258-83-38 10:56:00 Test Item Value Reference Range Interpretation Comments Eosinophils (test code = 3.8 See_Comment N [A utomated message] The Eosinophils) system which ge nerated this result tra nsmitted reference range : <=4.0. The reference r ana luisa was not used to int erpret this result as normal/abnormal . [facility] CenterEweenfmTBATLNQOL9218-57-84 10:56:00 Test Item Value Reference Range Interpretation Comments Troponin-T (test code no gt See_Comment N [Auto mated message] The = Troponin-T) system which g enerated this result transmit quoc reference range : <=0.100. The reference r ana luisa was not used to interpr et this result as alisha l/abnormal. [facility] CenterHwwtkhpEWSECHFCR4605-46-45 10:56:00 Test Item Value Reference Range Interpretation Comments Total CK (test code = Total CK) 34 12-191 N [facility] CenterDtbppzaGEJLNFXWU1036-67-40 10:56:00 Test Item Value Reference Range Interpretation Comments Amylase Lvl (test code = Amylase Lvl) 139 25-115 H [facility] CenterZmftykiTPQHKRSQG0958-42-43 10:56:00 Test Item Value Reference Range Interpretation Comments CHD Risk (test code = CHD Risk) 5.79 4.00-7.30 N [facility] SbkpubcCZLHWUIHC0197-67-85 10:56:00 Test Item Value Reference Range Interpretation Comments LDL (test code = LDL) 91 See_Comment N [Auto mated message] The system which ge nerated this result transmit quoc reference range : <=129. The reference range was not used to interpr et this result as alisha l/abnormal. [facility] QxeoghlPDPSUAJBT9268-37-26 10:56:00 Test Item Value Reference Range Interpretation Comments HDL (test code = HDL) 24 L [facility]SdokcswXFQKPMVRK8930-09-19 10:56:00 Test Item Value Reference Range Interpretation Comments Trig (test code = 120 See_Comment N [Automate d message] The Trig) system which ge nerated this result transmit quoc reference range : <=200. The reference range was not used to interpr et this result as alisha l/abnormal. [facility] LmtnuxeMMAQQUYTO0729-07-60 10:56:00 Test Item Value Reference Range Interpretation Comments Chol (test code = Chol) 139 120-200 N [facility] MwdgbguMYILBUULU3737-14-93 10:56:00 Test Item Value Reference Range Interpretation Comments Lipase Lvl (test code = Lipase Lvl) 447 73-393 H [facility]DmhpdzwYMRVWUPTC2995-07-57 10:56:00 Test Item Value Reference Range Interpretation Comments ALT (test code = ALT) 95 See_Comment H [Auto mated message] The system which ge nerated this result transmit quoc reference range : <=65. The reference range was not used to interpr et this result as alisha l/abnormal. [facility] OllpcmoJGLYCGBNV9685-81-65 10:56:00 Test Item Value Reference Range Interpretation Comments Albumin Lvl (test code = Albumin Lvl) 3.2 3.5-5.0 L [facility] GynwkgpPJZOYOYAC9971-98-27 10:56:00 Test Item Value Reference Range Interpretation Comments Bili Direct (test code 0.8 See_Comment H [Aut omated message] The = Bili Direct) system which generated this result tra nsmitted reference range : <=0.3. The reference r ana luisa was not used to int erpret this result as alisha l/abnormal. [facility] CenterIofbkyrGUPNJEEDP7449-85-84 10:56:00 Test Item Value Reference Range Interpretation Comments Alk Phos (test code = Alk Phos) 180 39-136 H [facility] CenterJmifparWCBOQHYCZ0185-69-04 10:56:00 Test Item Value Reference Range Interpretation Comments Globulin (test code = Globulin) 3.0 2.0-4.0 N [facility] CenterIxfrkpdWTTSOAFHK9943-08-28 10:56:00 Test Item Value Reference Range Interpretation Comments AST (test code = AST) 125 See_Comment H [Auto mated message] The system which ge nerated this result transmit quoc reference range : <=37. The reference range was not used to interpr et this result as alisha l/abnormal. [facility] CenterKrhxcoqQFXPWEQER8479-18-54 10:56:00 Test Item Value Reference Range Interpretation Comments A/G Ratio (test code = A/G Ratio) 1.1 0.7-1.6 N [facility] CenterNzockrhPMKSGYKGD1847-42-75 10:56:00 Test Item Value Reference Range Interpretation Comments Bili Total (test code = Bili Total) 1.2 0.2-1.3 N [facility] CenterFqdousuGZVBZKQHS0520-88-25 10:56:00 Test Item Value Reference Range Interpretation Comments Total Protein (test code = Total 6.2 6.4-8.4 L Protein) [facility] CenterDohpsbpSKHAFBUME2650-57-93 10:56:00 Test Item Value Reference Range Interpretation Comments Bili Indirect (test 0.4 See_Comment N [Automa quoc message] The code = Bili Indirect) system which generated this result tra nsmitted reference range : <=1.0. The reference r ana luisa was not used to int erpret this result as normal/abnormal . [facility] CenterRoakinfNMRWSSGWP0632-13-24 10:56:00 Test Item Value Reference Range Interpretation Comments LDH (test code = LDH) 167 98-192 N [facility] CenterTixpqznBXXFSXWPZ8539-37-44 10:56:00 Test Item Value Reference Range Interpretation Comments UIBC (test code = UIBC) 158 110-370 N [facility] CenterDzuepggTAOFLWXCZ3921-72-41 10:56:00 Test Item Value Reference Range Interpretation Comments % Satur Fe (test code = % Satur Fe) 38 12-57 N [facility] CenterYcpcnefOJVXXLXMA2031-03-56 10:56:00 Test Item Value Reference Range Interpretation Comments TIBC (test code = TIBC) 256 228-428 N [facility] CenterFwuepuiWFIFEKVNE0345-03-68 10:56:00 Test Item Value Reference Range Interpretation Comments Iron (test code = Iron) 98 45-160 N [facility] CenterRhozxgfONIZIQQRD5512-62-10 10:56:00 Test Item Value Reference Range Interpretation Comments Ca Ion (test code = Ca Ion) 1.13 1.16-1.30 L [facility] CenterAjvguceWMPJCXXAI3481-91-94 10:56:00 Test Item Value Reference Range Interpretation Comments Ca Norm (test code = Ca Norm) 1.13 1.16-1.30 L [facility] CenterUyviratOAAIXUWPG6459-62-42 10:56:00 Test Item Value Reference Range Interpretation Comments Ca Ion mgdL (test code = Ca Ion mgdL) 4.52 4.65-5.20 L [facility] CenterVmvsoppOGBHJDATE7366-07-45 10:56:00 Test Item Value Reference Range Interpretation Comments Ca Norm mgdL (test code = Ca Norm mgdL) 4.52 4.65-5.20 L [facility] CenterKpamrwtZWHIUPOWI0821-62-90 10:56:00 Test Item Value Reference Range Interpretation Comments AGAP (test code = AGAP) 15.6 10.0-20.0 N [facility] CenterAhjqotgMFMZOBJOJ3566-09-75 10:56:00 Test Item Value Reference Range Interpretation Comments CO2 (test code = CO2) 24 24-32 N [facility] CenterZgmlropISJUHIIXI3645-94-96 10:56:00 Test Item Value Reference Range Interpretation Comments Chloride Lvl (test code = Chloride Lvl) 106 95-109 N [facility] CenterVgqpzjzNNDYEYDNH5618-90-31 10:56:00 Test Item Value Reference Range Interpretation Comments Potassium Lvl (test code = Potassium 4.6 3.5-5.1 N Lvl) [facility] CenterWztpmgcDZDBMPDHI7431-43-93 10:56:00 Test Item Value Reference Range Interpretation Comments Sodium Lvl (test code = Sodium Lvl) 141 135-145 N [facility] CenterJokomnjKJVJFFOVI4541-44-56 10:56:00 Test Item Value Reference Range Interpretation Comments Calcium Lvl (test code = Calcium Lvl) 8.7 8.5-10.5 N [facility] CenterOrzboqfMFYTVKBBB4022-64-64 10:56:00 Test Item Value Reference Range Interpretation Comments BUN (test code = BUN) 14 7-22 N [facility] CenterQwbxtloVNISCIJMC0308-54-70 10:56:00 Test Item Value Reference Range Interpretation Comments Glucose Lvl (test code = Glucose Lvl) 111 [facility] CenterRcabxglRQXJGWWER8539-46-34 10:56:00 Test Item Value Reference Range Interpretation Comments Creatinine Lvl (test code = Creatinine 1.1 0.5-1.4 N Lvl) [facility] CenterVynrccxZQOKREHBA8743-04-24 10:56:00 Test Item Value Reference Range Interpretation Comments Phosphorus (test code = Phosphorus) 4.0 2.5-4.5 N [facility] CenterIgfunimSMSUXXAEK3444-87-88 10:56:00 Test Item Value Reference Range Interpretation Comments Magnesium Lvl (test code = Magnesium 1.8 1.8-2.4 N Lvl) [facility] CenterZmxhyabWVJNNPBVP4285-59-57 10:56:00 Test Item Value Reference Range Interpretation Comments Troponin-I (test code no gt See_Comment N [Auto mated message] The = Troponin-I) system which g enerated this result transmit quoc reference range : <=0.40. The reference r ana luisa was not used to interpr et this result as alisha l/abnormal. [facility] CenterFdaewniRVKXYXSBR9329-74-89 10:56:00 Test Item Value Reference Range Interpretation Comments Myoglobin (test code = Myoglobin) 47 25-[address] [address] [facility] HospitalKxtuyslEXGUKHDAVK8793-60-90 10:56:00 Test Item Value Reference Range Interpretation Comments PT (test code = PT) 14.0 s 12.0-14.[address] HospitalPhlszazSYMMCLMBCT6132-80-79 10:56:00 Test Item Value Reference Range Interpretation Comments PTT (test code = PTT) 28.2 s 22.9-35.[address] [address] [facility] HospitalXwpbpnvNUAAVLAITC7297-93-91 10:56:00 Test Item Value Reference Range Interpretation Comments INR (test code = INR) 1.08 0.85-1.[address] HospitalJhobjouKWEFZDZLRT6106-65-09 10:56:00 Test Item Value Reference Range Interpretation Comments Hct (test code = Hct) 37.6 42.0-54.[address] HospitalTzmxpqqFOSJNRBLRU9103-56-07 10:56:00 Test Item Value Reference Range Interpretation Comments Hgb (test code = Hgb) 12.9 14.0-18.[address] HospitalMljjtsoIFTZKFUTXV1481-76-80 10:56:00 Test Item Value Reference Range Interpretation Comments MCHC (test code = MCHC) 34.4 32.0-36.[address] [facility] HospitalOvqdbscODQQWIZJOU1844-33-28 10:56:00 Test Item Value Reference Range Interpretation Comments MCH (test code = MCH) 31.4 pg 27.0-31.[address] [facility] [facility] HospitalBrqgoydDNSBOVCDTH4312-69-25 10:56:00 Test Item Value Reference Range Interpretation Comments MCV (test code = MCV) 91.3 80.0-94.[address] [facility] HospitalGlahjunJXEKVQUUGO2011-63-39 10:56:00 Test Item Value Reference Range Interpretation Comments Platelet (test code = Platelet) 312 133-[address] [facility] HospitalRwzafxxGPJYUBXRCE3763-76-99 10:56:00 Test Item Value Reference Range Interpretation Comments RDW (test code = RDW) 13.4 11.5-14.[address] [facility] HospitalUpmjudvGJMGLJLUJE3276-29-91 10:56:00 Test Item Value Reference Range Interpretation Comments MPV (test code = MPV) 6.9 7.4-10.[address] HospitalCcuufvzINLIQXNMNL1177-27-69 10:56:00 Test Item Value Reference Range Interpretation Comments WBC (test code = WBC) 5.1 3.7-10.[address] [facility] [facility] HospitalApdqxquRCDPXEWXPC2497-05-30 10:56:00 Test Item Value Reference Range Interpretation Comments RBC (test code = RBC) 4.12 4.70-6.10 [facility]2012-01-27 10:56:00 Test Item Value Reference Range Interpretation Comments Segs-Bands # (test code = Segs-Bands #) 2.4 1.5-8.[address] HospitalUyfzycpUNIHXPRJFJ2355-44-70 10:56:00 Test Item Value Reference Range Interpretation Comments Lymphocytes # (test code = Lymphocytes 1.4 1.0-5.5 N #) [facility] HospitalPyjnnxvTICCBAFISU1688-96-73 10:56:00 Test Item Value Reference Range Interpretation Comments Basophils (test code = 0.4 See_Comment N [Aut omated message] The Basophils) system which ge nerated this result tra nsmitted reference range : <=1.0. The reference r ana luisa was not used to int erpret this result as normal/abnormal . [facility]PgwbvbsJHUQEOUJYP7396-48-55 10:56:00 Test Item Value Reference Range Interpretation Comments Monocytes # (test code 1.0 See_Comment H [Aut omated message] The = Monocytes #) system which generated this result tra nsmitted reference range : <=0.8. The reference r ana luisa was not used to int erpret this result as normal/abnormal . [facility] HospitalVokbvlxZHUKPDXIDA2467-93-81 10:56:00 Test Item Value Reference Range Interpretation Comments Eosinophils # (test code 0.2 See_Comment N [A utomated message] The = Eosinophils #) system whic h generated this result tra nsmitted reference range : <=0.5. The reference r ana luisa was not used to int erpret this result as normal/abnormal . [facility] HospitalWnhmbjxHCXFGCQGOC6812-81-98 10:56:00 Test Item Value Reference Range Interpretation Comments Basophils # (test code 0.0 See_Comment N [Aut omated message] The = Basophils #) system which generated this result tra nsmitted reference range : <=0.2. The reference r ana luisa was not used to int erpret this result as normal/abnormal . [facility] HospitalFoxvtrkIOWNVIJJLR6275-99-26 10:56:00 Test Item Value Reference Range Interpretation Comments Monocytes (test code = Monocytes) 19.6 2.0-12.[address] [facility] HospitalEqkdsmaCWYDPOFLHP6782-71-69 10:56:00 Test Item Value Reference Range Interpretation Comments Lymphocytes (test code = Lymphocytes) 28.4 20.0-40.[address] [facility] HospitalAfdqsupOHWHFOTXSG2500-53-26 10:56:00 Test Item Value Reference Range Interpretation Comments Segs (test code = Segs) 47.8 45.0-75.[address] HospitalDhpchlsTULHLNSRMU3725-68-62 10:56:00 Test Item Value Reference Range Interpretation Comments Eosinophils (test code = 3.8 See_Comment N [A utomated message] The Eosinophils) system which ge nerated this result tra nsmitted reference range : <=4.0. The reference r ana luisa was not used to int erpret this result as normal/abnormal . [facility]DkvlqdkQJDBNBMUF9658-94-86 08:30:00 Test Item Value Reference Range Interpretation Comments Magnesium Lvl (test code = Magnesium 1.5 1.8-2.4 L Lvl) [facility] CenterAamfemxHASYTZIMS5898-30-18 08:30:00 Test Item Value Reference Range Interpretation Comments Albumin Lvl (test code = Albumin Lvl) 2.5 3.5-5.0 L [facility] CenterZbvpmjgETAIIEXVX9481-62-60 08:30:00 Test Item Value Reference Range Interpretation Comments Alk Phos (test code = Alk Phos) 144 39-136 H [facility] CenterFqmfpsgYIUMCBWVQ8544-36-18 08:30:00 Test Item Value Reference Range Interpretation Comments Creatinine Lvl (test code = Creatinine 0.6 0.5-1.4 N Lvl) [facility] CenterYtjotulANSTMJAIB4021-79-10 08:30:00 Test Item Value Reference Range Interpretation Comments Sodium Lvl (test code = Sodium Lvl) 143 135-145 N [facility] CenterThvneslGHXJCNHWB2562-81-91 08:30:00 Test Item Value Reference Range Interpretation Comments Glucose Lvl (test code = Glucose Lvl) 113 [facility] CenterCvajaywXWAXUMYAQ5596-11-74 08:30:00 Test Item Value Reference Range Interpretation Comments BUN (test code = BUN) 12 7-22 N [facility] CenterWzlhweuKMQJSZHJQ3111-48-45 08:30:00 Test Item Value Reference Range Interpretation Comments ALT (test code = ALT) 81 See_Comment H [Auto mated message] The system which ge nerated this result transmit quoc reference range : <=65. The reference range was not used to interpr et this result as alisha l/abnormal. [facility] CenterEceyyepZFVWMTURA2610-08-06 08:30:00 Test Item Value Reference Range Interpretation Comments Total Protein (test code = Total 5.0 6.4-8.4 L Protein) [facility] CenterNcspykdWOHHVSCRJ9263-08-88 08:30:00 Test Item Value Reference Range Interpretation Comments AGAP (test code = AGAP) 17.1 10.0-20.0 N [facility] CenterVkfpfveGJUBKFHGZ1892-62-24 08:30:00 Test Item Value Reference Range Interpretation Comments B/C Ratio (test code = B/C Ratio) 20 6-25 N [facility] CenterQkwlkicXFKCDSVAK7206-52-04 08:30:00 Test Item Value Reference Range Interpretation Comments Globulin (test code = Globulin) 2.5 2.0-4.0 N [facility] CenterSrppzshGCGMMEBYV3513-85-52 08:30:00 Test Item Value Reference Range Interpretation Comments A/G Ratio (test code = A/G Ratio) 1.0 0.7-1.6 N [facility] CenterXdvltmoLOANNSGGX6952-48-67 08:30:00 Test Item Value Reference Range Interpretation Comments Potassium Lvl (test code = Potassium 4.1 3.5-5.1 N Lvl) [facility] CenterSeiyxlzXBUUOKEUC7242-04-08 08:30:00 Test Item Value Reference Range Interpretation Comments Calcium Lvl (test code = Calcium Lvl) 6.9 8.5-10.5 A [facility] CenterDhsifzdFAMOLVAQD2227-09-30 08:30:00 Test Item Value Reference Range Interpretation Comments Bili Total (test code = Bili Total) 1.0 0.2-1.3 N [facility] CenterTdlzffmYLGDODJBR6879-24-65 08:30:00 Test Item Value Reference Range Interpretation Comments Chloride Lvl (test code = Chloride Lvl) 110 95-109 H [facility] CenterIzdtdddCBZAYOEPN9688-61-33 08:30:00 Test Item Value Reference Range Interpretation Comments CO2 (test code = CO2) 20 24-32 L [facility] CenterJkfbrlqGMYFTDFYZ7104-25-34 08:30:00 Test Item Value Reference Range Interpretation Comments AST (test code = AST) 123 See_Comment H [Auto mated message] The system which ge nerated this result transmit quoc reference range : <=37. The reference range was not used to interpr et this result as alisha l/abnormal. [facility] CenterAaljvbsGOOOFQLSO3052-55-92 08:30:00 Test Item Value Reference Range Interpretation Comments Phosphorus (test code = Phosphorus) 3.0 2.5-4.[address] [facility] HospitalEwwmzomVLSFZVGVZD2301-98-06 08:30:00 Test Item Value Reference Range Interpretation Comments MCH (test code = MCH) 31.3 pg 27.0-31.[address] [facility] HospitalAzwdnxdMTSJIAXWRC5623-98-83 08:30:00 Test Item Value Reference Range Interpretation Comments MCHC (test code = MCHC) 34.0 32.0-36.[address] [facility] HospitalDqfvnbvPSIDGLSKKO5403-68-70 08:30:00 Test Item Value Reference Range Interpretation Comments RDW (test code = RDW) 13.3 11.5-14.[address] [facility] HospitalIkbyjkaVBZLKSHWXD4087-12-32 08:30:00 Test Item Value Reference Range Interpretation Comments MCV (test code = MCV) 91.9 80.0-94.[address] [facility] HospitalTegkbysANYOULHVYY4784-81-86 08:30:00 Test Item Value Reference Range Interpretation Comments RBC (test code = RBC) 4.05 4.70-6.[address] [facility] HospitalWbkrzpaUEDYGLKDHX5395-89-83 08:30:00 Test Item Value Reference Range Interpretation Comments Hct (test code = Hct) 37.2 42.0-54.[address] [facility] HospitalUgwomuaKSYWBXLZTQ5508-08-48 08:30:00 Test Item Value Reference Range Interpretation Comments Hgb (test code = Hgb) 12.7 14.0-18.[address] [facility] HospitalAtvnkwlXDTDAUOXYO5583-69-52 08:30:00 Test Item Value Reference Range Interpretation Comments WBC (test code = WBC) 4.4 3.7-10.[address] [facility] HospitalXdwluszPCJOFAXSCW5004-04-34 08:30:00 Test Item Value Reference Range Interpretation Comments MPV (test code = MPV) 7.1 7.4-10.[address] [facility] HospitalGsvsnxgPARODPJOWU4396-48-21 08:30:00 Test Item Value Reference Range Interpretation Comments Platelet (test code = Platelet) 329 133-[address] [facility] HospitalOrvqhfqDXEUCIATRZ3723-64-35 08:30:00 Test Item Value Reference Range Interpretation Comments Segs-Bands # (test code = Segs-Bands #) 2.0 1.5-8.[address] [facility] HospitalDvblyhbQAZXRWADIR2501-85-90 08:30:00 Test Item Value Reference Range Interpretation Comments Eosinophils (test code = 4.2 See_Comment H [A utomated message] The Eosinophils) system which ge nerated this result tra nsmitted reference range : <=4.0. The reference r ana luisa was not used to int erpret this result as normal/abnormal . [facility] HospitalZuwvptaQYFPVNLAEH6501-57-40 08:30:00 Test Item Value Reference Range Interpretation Comments Basophils (test code = 0.4 See_Comment N [Aut omated message] The Basophils) system which ge nerated this result tra nsmitted reference range : <=1.0. The reference r ana luisa was not used to int erpret this result as normal/abnormal . [facility] HospitalPufezjqTOZWNYNEPZ7299-59-73 08:30:00 Test Item Value Reference Range Interpretation Comments Segs (test code = Segs) 46.1 45.0-75.[address] [facility] HospitalCrvyqroEZHIHRHETI7625-76-44 08:30:00 Test Item Value Reference Range Interpretation Comments Lymphocytes (test code = Lymphocytes) 30.9 20.0-40.[address] [facility] HospitalBwbaidqXWJRNOFILQ8165-27-04 08:30:00 Test Item Value Reference Range Interpretation Comments Monocytes (test code = Monocytes) 18.4 2.0-12.[address] [facility] HospitalNybjnopFRNMPNNOLJ8494-39-71 08:30:00 Test Item Value Reference Range Interpretation Comments Lymphocytes # (test code = Lymphocytes 1.4 1.0-5.5 N #) [facility] HospitalUpitzhvKKLPFVDDLL3807-32-93 08:30:00 Test Item Value Reference Range Interpretation Comments Large Plt (test code = Slight *ABN*(09/22/2011 A Large Plt) 02:30:00) [facility] HospitalNjhzgnxEFNAOSLJAQ5679-07-70 08:30:00 Test Item Value Reference Range Interpretation Comments Eosinophils # (test code 0.2 See_Comment N [A utomated message] The = Eosinophils #) system whic h generated this result tra nsmitted reference range : <=0.5. The reference r ana luisa was not used to int erpret this result as normal/abnormal . [facility] HospitalTzmjddmDMWXXKSYLU0203-19-98 08:30:00 Test Item Value Reference Range Interpretation Comments Basophils # (test code 0.0 See_Comment N [Aut omated message] The = Basophils #) system which generated this result tra nsmitted reference range : <=0.2. The reference r ana luisa was not used to int erpret this result as normal/abnormal . [facility] HospitalDddzsuhRGJTITZJAO1684-08-20 08:30:00 Test Item Value Reference Range Interpretation Comments Monocytes # (test code 0.8 See_Comment N [Aut omated message] The = Monocytes #) system which generated this result tra nsmitted reference range : <=0.8. The reference r ana luisa was not used to int erpret this result as normal/abnormal . [facility] CenterWwoijxuASDPICZGF9316-44-09 08:30:00 Test Item Value Reference Range Interpretation Comments Magnesium Lvl (test code = Magnesium 1.5 1.8-2.4 L Lvl) [facility] CenterYfhhmllUVTPKEXQP1467-72-73 08:30:00 Test Item Value Reference Range Interpretation Comments Albumin Lvl (test code = Albumin Lvl) 2.5 3.5-5.0 L [facility] CenterNpvzlyaCMPBVXGIW8188-90-33 08:30:00 Test Item Value Reference Range Interpretation Comments Alk Phos (test code = Alk Phos) 144 39-136 H [facility] CenterXsqmgyaMQVDUASUL7796-91-65 08:30:00 Test Item Value Reference Range Interpretation Comments Creatinine Lvl (test code = Creatinine 0.6 0.5-1.4 N Lvl) [facility] CenterMzzypacSPICLLZHA4052-31-21 08:30:00 Test Item Value Reference Range Interpretation Comments Sodium Lvl (test code = Sodium Lvl) 143 135-145 N [facility] CenterBbohcetKZOKRXHQJ2153-49-20 08:30:00 Test Item Value Reference Range Interpretation Comments Glucose Lvl (test code = Glucose Lvl) 113 [facility] CenterVdqglvbYYAFYEQFC0721-29-92 08:30:00 Test Item Value Reference Range Interpretation Comments BUN (test code = BUN) 12 7-22 N [facility] CenterFjqktckNLQZWQUST4100-05-80 08:30:00 Test Item Value Reference Range Interpretation Comments ALT (test code = ALT) 81 See_Comment H [Auto mated message] The system which ge nerated this result transmit quoc reference range : <=65. The reference range was not used to interpr et this result as alisha l/abnormal. [facility] CenterOdujvvvFZKZESCTD8000-32-12 08:30:00 Test Item Value Reference Range Interpretation Comments Total Protein (test code = Total 5.0 6.4-8.4 L Protein) [facility] CenterKrpfdvfEBYFCGFUX8835-17-37 08:30:00 Test Item Value Reference Range Interpretation Comments AGAP (test code = AGAP) 17.1 10.0-20.0 N [facility] CenterShjmmlgFWZIQXFEA2251-04-98 08:30:00 Test Item Value Reference Range Interpretation Comments B/C Ratio (test code = B/C Ratio) 20 6-25 N [facility] CenterGmgxnneGHXANJXPT3053-26-35 08:30:00 Test Item Value Reference Range Interpretation Comments Globulin (test code = Globulin) 2.5 2.0-4.0 N [facility] CenterAsnnwnySVJGRMMHQ8289-48-30 08:30:00 Test Item Value Reference Range Interpretation Comments A/G Ratio (test code = A/G Ratio) 1.0 0.7-1.6 N [facility] CenterDkemcxzNSBOCFVEA8626-38-03 08:30:00 Test Item Value Reference Range Interpretation Comments Potassium Lvl (test code = Potassium 4.1 3.5-5.1 N Lvl) [facility] CenterXesvuueASAJYNDEF3953-31-80 08:30:00 Test Item Value Reference Range Interpretation Comments Calcium Lvl (test code = Calcium Lvl) 6.9 8.5-10.5 A [facility] CenterYpqfbjfWWTTDEZPS8352-31-24 08:30:00 Test Item Value Reference Range Interpretation Comments Bili Total (test code = Bili Total) 1.0 0.2-1.3 N [facility] CenterUqlzpctWFIJDZJCJ6441-37-97 08:30:00 Test Item Value Reference Range Interpretation Comments Chloride Lvl (test code = Chloride Lvl) 110 95-109 H [facility] CenterAgbfyfoFEFWSINDZ0161-75-21 08:30:00 Test Item Value Reference Range Interpretation Comments CO2 (test code = CO2) 20 24-32 L [facility] CenterMytdpxkPRUQMJTMX3396-21-43 08:30:00 Test Item Value Reference Range Interpretation Comments AST (test code = AST) 123 See_Comment H [Auto mated message] The system which ge nerated this result transmit quoc reference range : <=37. The reference range was not used to interpr et this result as alisha l/abnormal. [facility] CenterBaelntzALNPQYQBB3181-73-51 08:30:00 Test Item Value Reference Range Interpretation Comments Phosphorus (test code = Phosphorus) 3.0 2.5-4.[address] [facility] HospitalNcdatcvIGJLLOHYMN8685-38-59 08:30:00 Test Item Value Reference Range Interpretation Comments MCH (test code = MCH) 31.3 pg 27.0-31.[address] HospitalFbuysgyPZDRTTHBCF9432-89-48 08:30:00 Test Item Value Reference Range Interpretation Comments MCHC (test code = MCHC) 34.0 32.0-36.[address] HospitalDnvzcysBTJTZWJWYO6058-93-04 08:30:00 Test Item Value Reference Range Interpretation Comments RDW (test code = RDW) 13.3 11.5-14.[address] HospitalFwyftchFRLGHDMOTL5835-06-99 08:30:00 Test Item Value Reference Range Interpretation Comments MCV (test code = MCV) 91.9 80.0-94.[address] [facility] HospitalIjvzptlIGMJIBXRYQ9857-90-34 08:30:00 Test Item Value Reference Range Interpretation Comments RBC (test code = RBC) 4.05 4.70-6.[address] HospitalZucusmmZYOFORHPGH9257-61-35 08:30:00 Test Item Value Reference Range Interpretation Comments Hct (test code = Hct) 37.2 42.0-54.[address] [facility] HospitalDzrpvhpOMHECGDUYD3422-74-48 08:30:00 Test Item Value Reference Range Interpretation Comments Hgb (test code = Hgb) 12.7 14.0-18.[address] [facility] HospitalKldtefoEUFIKJQOTN8974-61-42 08:30:00 Test Item Value Reference Range Interpretation Comments WBC (test code = WBC) 4.4 3.7-10.[address] [facility] HospitalXxsxqznJSWCHVOIHK2893-98-47 08:30:00 Test Item Value Reference Range Interpretation Comments MPV (test code = MPV) 7.1 7.4-10.[address] HospitalKvgtvegQHGXIOJJJY1115-75-90 08:30:00 Test Item Value Reference Range Interpretation Comments Platelet (test code = Platelet) 329 133-[address] [facility] HospitalQizqfdpMIDRYTKQCP9834-17-46 08:30:00 Test Item Value Reference Range Interpretation Comments Segs-Bands # (test code = Segs-Bands #) 2.0 1.5-8.[address] [facility] HospitalYbqzsspPUIHNBXSIC5608-14-11 08:30:00 Test Item Value Reference Range Interpretation Comments Eosinophils (test code = 4.2 See_Comment H [A utomated message] The Eosinophils) system which ge nerated this result tra nsmitted reference range : <=4.0. The reference r ana luisa was not used to int erpret this result as normal/abnormal . [facility] HospitalArzvulyKETZADJWUP1473-00-25 08:30:00 Test Item Value Reference Range Interpretation Comments Basophils (test code = 0.4 See_Comment N [Aut omated message] The Basophils) system which ge nerated this result tra nsmitted reference range : <=1.0. The reference r ana luisa was not used to int erpret this result as normal/abnormal . [facility] HospitalAiwrqilEYVEONGIKP6378-67-89 08:30:00 Test Item Value Reference Range Interpretation Comments Segs (test code = Segs) 46.1 45.0-75.[address] [facility] HospitalDdgqldeNPYHEQRVWH7835-42-96 08:30:00 Test Item Value Reference Range Interpretation Comments Lymphocytes (test code = Lymphocytes) 30.9 20.0-40.[address] [facility] HospitalQfekqdnUHVNGTAYWI1403-85-11 08:30:00 Test Item Value Reference Range Interpretation Comments Monocytes (test code = Monocytes) 18.4 2.0-12.[address] HospitalFvkillpSKGWGTSSUT1136-88-51 08:30:00 Test Item Value Reference Range Interpretation Comments Lymphocytes # (test code = Lymphocytes 1.4 1.0-5.5 N #) [facility] HospitalVlkjnasMZXHDWEWTW9187-73-56 08:30:00 Test Item Value Reference Range Interpretation Comments Large Plt (test code = Slight *ABN*(09/22/2011 A Large Plt) 02:30:00) [facility] HospitalMbemapvGCMVNLBWBG5664-27-65 08:30:00 Test Item Value Reference Range Interpretation Comments Eosinophils # (test code 0.2 See_Comment N [A utomated message] The = Eosinophils #) system whic h generated this result tra nsmitted reference range : <=0.5. The reference r ana luisa was not used to int erpret this result as normal/abnormal . [facility] HospitalIthtphzJIYDQWRWWG6196-84-24 08:30:00 Test Item Value Reference Range Interpretation Comments Basophils # (test code 0.0 See_Comment N [Aut omated message] The = Basophils #) system which generated this result tra nsmitted reference range : <=0.2. The reference r ana luisa was not used to int erpret this result as normal/abnormal . [facility] HospitalTwnhteqHVANARQYRI0983-63-18 08:30:00 Test Item Value Reference Range Interpretation Comments Monocytes # (test code 0.8 See_Comment N [Aut omated message] The = Monocytes #) system which generated this result tra nsmitted reference range : <=0.8. The reference r ana luisa was not used to int erpret this result as normal/abnormal . [facility] CenterDgtnkzsVUKCLDUOD9777-16-02 08:30:00 Test Item Value Reference Range Interpretation Comments Magnesium Lvl (test code = Magnesium 1.5 1.8-2.4 L Lvl) [facility] CenterOlexujfARVDIICAN7542-03-38 08:30:00 Test Item Value Reference Range Interpretation Comments Albumin Lvl (test code = Albumin Lvl) 2.5 3.5-5.0 L [facility] CenterCjaitduDXCKAXNBO2142-02-41 08:30:00 Test Item Value Reference Range Interpretation Comments Alk Phos (test code = Alk Phos) 144 39-136 H [facility] CenterSnbcdkuQTFFFLIMN0650-16-45 08:30:00 Test Item Value Reference Range Interpretation Comments Creatinine Lvl (test code = Creatinine 0.6 0.5-1.4 N Lvl) [facility] CenterSixlradPZZSCXKSY5948-06-70 08:30:00 Test Item Value Reference Range Interpretation Comments Sodium Lvl (test code = Sodium Lvl) 143 135-145 N [facility] CenterDxuzrtnZLLARYNWK1956-95-83 08:30:00 Test Item Value Reference Range Interpretation Comments Glucose Lvl (test code = Glucose Lvl) 113 [facility] CenterPectvpsNYYYMOTEN0646-97-52 08:30:00 Test Item Value Reference Range Interpretation Comments BUN (test code = BUN) 12 7-22 N [facility] CenterGdnslwmMEGXASWTU8789-86-70 08:30:00 Test Item Value Reference Range Interpretation Comments ALT (test code = ALT) 81 See_Comment H [Auto mated message] The system which ge nerated this result transmit quoc reference range : <=65. The reference range was not used to interpr et this result as alisha l/abnormal. [facility] CenterVkzynqbXMFSDVUSV8005-11-76 08:30:00 Test Item Value Reference Range Interpretation Comments Total Protein (test code = Total 5.0 6.4-8.4 L Protein) [facility] CenterPslrxqrDPRUQBSWC3767-59-96 08:30:00 Test Item Value Reference Range Interpretation Comments AGAP (test code = AGAP) 17.1 10.0-20.0 N [facility] CenterHasxrszXQABGHBZA3927-32-11 08:30:00 Test Item Value Reference Range Interpretation Comments B/C Ratio (test code = B/C Ratio) 20 6-25 N [facility] CenterPwzgnwgTXPLDDVPV4373-63-34 08:30:00 Test Item Value Reference Range Interpretation Comments Globulin (test code = Globulin) 2.5 2.0-4.0 N [facility] CenterXdjkpsbSWTFRBLHB7111-09-85 08:30:00 Test Item Value Reference Range Interpretation Comments A/G Ratio (test code = A/G Ratio) 1.0 0.7-1.6 N [facility] CenterPwpzlkkNJTAAEGNW5136-23-24 08:30:00 Test Item Value Reference Range Interpretation Comments Potassium Lvl (test code = Potassium 4.1 3.5-5.1 N Lvl) [facility] CenterHdfsnwaFAVXDTNPJ7042-26-19 08:30:00 Test Item Value Reference Range Interpretation Comments Calcium Lvl (test code = Calcium Lvl) 6.9 8.5-10.5 A [facility] CenterCsldufiOWSXDOJNL4532-36-53 08:30:00 Test Item Value Reference Range Interpretation Comments Bili Total (test code = Bili Total) 1.0 0.2-1.3 N [facility] CenterOdpdhcfBUGULEWRY3746-07-44 08:30:00 Test Item Value Reference Range Interpretation Comments Chloride Lvl (test code = Chloride Lvl) 110 95-109 H [facility] CenterXeeypooWSHPCZWLF2274-08-07 08:30:00 Test Item Value Reference Range Interpretation Comments CO2 (test code = CO2) 20 24-32 L [facility] CenterXfqjmjnXZBJDQHMT5520-12-34 08:30:00 Test Item Value Reference Range Interpretation Comments AST (test code = AST) 123 See_Comment H [Auto mated message] The system which ge nerated this result transmit quoc reference range : <=37. The reference range was not used to interpr et this result as alisha l/abnormal. [facility] CenterEmelognXKOZSDIFI1246-49-32 08:30:00 Test Item Value Reference Range Interpretation Comments Phosphorus (test code = Phosphorus) 3.0 2.5-4.[address] HospitalPmgwrpkZFHQOPRCYZ4307-96-77 08:30:00 Test Item Value Reference Range Interpretation Comments MCH (test code = MCH) 31.3 pg 27.0-31.[address] HospitalOfnfihnUZCGBWOKOZ3557-37-44 08:30:00 Test Item Value Reference Range Interpretation Comments MCHC (test code = MCHC) 34.0 32.0-36.[address] HospitalXgzurtcVRZECWPQUH4497-06-00 08:30:00 Test Item Value Reference Range Interpretation Comments RDW (test code = RDW) 13.3 11.5-14.[address] [facility] HospitalSlbufygOXSEQTWCGL3451-50-58 08:30:00 Test Item Value Reference Range Interpretation Comments MCV (test code = MCV) 91.9 80.0-94.[address] [facility] HospitalGlmtzeeMDJFJHQHFJ8664-39-68 08:30:00 Test Item Value Reference Range Interpretation Comments RBC (test code = RBC) 4.05 4.70-6.[address] HospitalIprmcvfFZFAWTHPGD1198-40-73 08:30:00 Test Item Value Reference Range Interpretation Comments Hct (test code = Hct) 37.2 42.0-54.[address] HospitalQazimecVTOKFHRHOM6162-42-42 08:30:00 Test Item Value Reference Range Interpretation Comments Hgb (test code = Hgb) 12.7 14.0-18.[address] HospitalKceaedlWVHQRXMBUC2615-37-98 08:30:00 Test Item Value Reference Range Interpretation Comments WBC (test code = WBC) 4.4 3.7-10.[address] [facility] HospitalGhdjtofFBMNXUINAP0569-24-00 08:30:00 Test Item Value Reference Range Interpretation Comments MPV (test code = MPV) 7.1 7.4-10.[address] [facility] HospitalSpzkuxcYANHAZVNZT3752-21-30 08:30:00 Test Item Value Reference Range Interpretation Comments Platelet (test code = Platelet) 329 133-[address] HospitalPnrydnrDLLCTIANDX4475-32-27 08:30:00 Test Item Value Reference Range Interpretation Comments Segs-Bands # (test code = Segs-Bands #) 2.0 1.5-8.[address] HospitalFmsauosMPYYMQDIIY1519-51-78 08:30:00 Test Item Value Reference Range Interpretation Comments Eosinophils (test code = 4.2 See_Comment H [A utomated message] The Eosinophils) system which ge nerated this result tra nsmitted reference range : <=4.0. The reference r ana luisa was not used to int erpret this result as normal/abnormal . [facility] HospitalYdzjvmoBUMKDQBJZQ9633-00-17 08:30:00 Test Item Value Reference Range Interpretation Comments Basophils (test code = 0.4 See_Comment N [Aut omated message] The Basophils) system which ge nerated this result tra nsmitted reference range : <=1.0. The reference r ana luisa was not used to int erpret this result as normal/abnormal . [facility] HospitalFcaiwktRYOVKIURRA6985-41-46 08:30:00 Test Item Value Reference Range Interpretation Comments Segs (test code = Segs) 46.1 45.0-75.[address] [facility] HospitalGoxmohjTVIJPOFHLQ3774-33-76 08:30:00 Test Item Value Reference Range Interpretation Comments Lymphocytes (test code = Lymphocytes) 30.9 20.0-40.[address] HospitalZbbnhpuSFHMNHYNDB6987-81-79 08:30:00 Test Item Value Reference Range Interpretation Comments Monocytes (test code = Monocytes) 18.4 2.0-12.[address] HospitalMugnswiIVJJASKPEE5404-43-88 08:30:00 Test Item Value Reference Range Interpretation Comments Lymphocytes # (test code = Lymphocytes 1.4 1.0-5.5 N #) [facility] HospitalEszjggaIMMQQZBEMI8909-39-12 08:30:00 Test Item Value Reference Range Interpretation Comments Large Plt (test code = Slight *ABN*(09/22/2011 A Large Plt) 02:30:00) [facility] HospitalJdqfxqoVOSVCHEWXS2102-97-68 08:30:00 Test Item Value Reference Range Interpretation Comments Eosinophils # (test code 0.2 See_Comment N [A utomated message] The = Eosinophils #) system whic h generated this result tra nsmitted reference range : <=0.5. The reference r ana luisa was not used to int erpret this result as normal/abnormal . [facility] HospitalJgustugTXCQXTOVBI0302-04-08 08:30:00 Test Item Value Reference Range Interpretation Comments Basophils # (test code 0.0 See_Comment N [Aut omated message] The = Basophils #) system which generated this result tra nsmitted reference range : <=0.2. The reference r ana luisa was not used to int erpret this result as normal/abnormal . [facility] HospitalGaiwxvkEEFHJLOPFI4167-91-47 08:30:00 Test Item Value Reference Range Interpretation Comments Monocytes # (test code 0.8 See_Comment N [Aut omated message] The = Monocytes #) system which generated this result tra nsmitted reference range : <=0.8. The reference r ana luisa was not used to int erpret this result as normal/abnormal . [facility]OufbbhqCDRLNIDVK5255-50-07 08:30:00 Test Item Value Reference Range Interpretation Comments Magnesium Lvl (test code = Magnesium 1.5 1.8-2.4 L Lvl) [facility] CenterTrmhkjtCHKNUIAIN5284-53-82 08:30:00 Test Item Value Reference Range Interpretation Comments Albumin Lvl (test code = Albumin Lvl) 2.5 3.5-5.0 L [facility] CenterBqtvrjrQSCRUGEHV7470-55-94 08:30:00 Test Item Value Reference Range Interpretation Comments Alk Phos (test code = Alk Phos) 144 39-136 H [facility] CenterHcsggpfGGBGODIFA0723-64-31 08:30:00 Test Item Value Reference Range Interpretation Comments Creatinine Lvl (test code = Creatinine 0.6 0.5-1.4 N Lvl) [facility] CenterMwzohjoIBVFFBBIU3411-74-25 08:30:00 Test Item Value Reference Range Interpretation Comments Sodium Lvl (test code = Sodium Lvl) 143 135-145 N [facility] CenterAhvoaswUIDELWRZP0977-47-96 08:30:00 Test Item Value Reference Range Interpretation Comments Glucose Lvl (test code = Glucose Lvl) 113 [facility] CenterBvdrcpzJXFDMIJZB9249-61-13 08:30:00 Test Item Value Reference Range Interpretation Comments BUN (test code = BUN) 12 7-22 N [facility] CenterNlqeefeOGUYHFIEL1781-81-14 08:30:00 Test Item Value Reference Range Interpretation Comments ALT (test code = ALT) 81 See_Comment H [Auto mated message] The system which ge nerated this result transmit quoc reference range : <=65. The reference range was not used to interpr et this result as alisha l/abnormal. [facility] CenterJmbzpybKILDIYUME2679-13-05 08:30:00 Test Item Value Reference Range Interpretation Comments Total Protein (test code = Total 5.0 6.4-8.4 L Protein) [facility] CenterXvsuhzzBLVSCIRON7221-71-59 08:30:00 Test Item Value Reference Range Interpretation Comments AGAP (test code = AGAP) 17.1 10.0-20.0 N [facility] CenterZsdcoqpMACXCHACC3367-07-86 08:30:00 Test Item Value Reference Range Interpretation Comments B/C Ratio (test code = B/C Ratio) 20 6-25 N [facility] CenterZdnigeyCJFJAQFAE5645-59-35 08:30:00 Test Item Value Reference Range Interpretation Comments Globulin (test code = Globulin) 2.5 2.0-4.0 N [facility] CenterGekhtywSCTLCRCXJ5902-55-43 08:30:00 Test Item Value Reference Range Interpretation Comments A/G Ratio (test code = A/G Ratio) 1.0 0.7-1.6 N [facility] CenterNrjpvadSVJREUNCV4105-43-00 08:30:00 Test Item Value Reference Range Interpretation Comments Potassium Lvl (test code = Potassium 4.1 3.5-5.1 N Lvl) [facility] CenterNtmskbjOANRVDNPW2666-07-45 08:30:00 Test Item Value Reference Range Interpretation Comments Calcium Lvl (test code = Calcium Lvl) 6.9 8.5-10.5 A [facility] CenterCebzvybMVLMGPSUE8277-40-85 08:30:00 Test Item Value Reference Range Interpretation Comments Bili Total (test code = Bili Total) 1.0 0.2-1.3 N [facility] CenterYfzlsdqJPGAXEIPQ7254-29-58 08:30:00 Test Item Value Reference Range Interpretation Comments Chloride Lvl (test code = Chloride Lvl) 110 95-109 H [facility] CenterKoatyhcDLGFVJMXS4472-05-40 08:30:00 Test Item Value Reference Range Interpretation Comments CO2 (test code = CO2) 20 24-32 L [facility] CenterXfchdvpXDAYONFPY4671-11-50 08:30:00 Test Item Value Reference Range Interpretation Comments AST (test code = AST) 123 See_Comment H [Auto mated message] The system which ge nerated this result transmit quoc reference range : <=37. The reference range was not used to interpr et this result as alisha l/abnormal. [facility] CenterOcukumePJLPHZCZT3724-25-26 08:30:00 Test Item Value Reference Range Interpretation Comments Phosphorus (test code = Phosphorus) 3.0 2.5-4.[address] HospitalOfecwwsTYTMBLUMCP5291-69-26 08:30:00 Test Item Value Reference Range Interpretation Comments MCH (test code = MCH) 31.3 pg 27.0-31.[address] [facility] HospitalSbrlsfrAWUPHGDSEC6409-50-72 08:30:00 Test Item Value Reference Range Interpretation Comments MCHC (test code = MCHC) 34.0 32.0-36.[address] HospitalCezktgmPNSJGPOAVV9743-00-30 08:30:00 Test Item Value Reference Range Interpretation Comments RDW (test code = RDW) 13.3 11.5-14.[address] HospitalLedurvuWTGEZUOGUG6507-26-81 08:30:00 Test Item Value Reference Range Interpretation Comments MCV (test code = MCV) 91.9 80.0-94.[address] [facility] HospitalSuyhtwrLEKFXGUHDV5528-37-16 08:30:00 Test Item Value Reference Range Interpretation Comments RBC (test code = RBC) 4.05 4.70-6.[address] HospitalWzyvsbwZYEJMPVNGA2695-33-37 08:30:00 Test Item Value Reference Range Interpretation Comments Hct (test code = Hct) 37.2 42.0-54.[address] [facility] HospitalPrunplaRCYNPAUSFZ0934-92-07 08:30:00 Test Item Value Reference Range Interpretation Comments Hgb (test code = Hgb) 12.7 14.0-18.[address] HospitalBbgcqrnLAFSGCFWKE9912-83-68 08:30:00 Test Item Value Reference Range Interpretation Comments WBC (test code = WBC) 4.4 3.7-10.[address] HospitalPgdnykeKWUZPVWRMM0808-09-83 08:30:00 Test Item Value Reference Range Interpretation Comments MPV (test code = MPV) 7.1 7.4-10.[address] [facility] HospitalOoxgjqfUOETGJDNMQ5137-41-80 08:30:00 Test Item Value Reference Range Interpretation Comments Platelet (test code = Platelet) 329 133-[address] HospitalQeaegdjWZODPWCAOI4081-95-93 08:30:00 Test Item Value Reference Range Interpretation Comments Segs-Bands # (test code = Segs-Bands #) 2.0 1.5-8.[address] HospitalSkxoqnhSVNBEAVPLW6466-46-85 08:30:00 Test Item Value Reference Range Interpretation Comments Eosinophils (test code = 4.2 See_Comment H [A utomated message] The Eosinophils) system which ge nerated this result tra nsmitted reference range : <=4.0. The reference r ana luisa was not used to int erpret this result as normal/abnormal . [facility] HospitalBcxxocwSLTFPJQERW1530-65-79 08:30:00 Test Item Value Reference Range Interpretation Comments Basophils (test code = 0.4 See_Comment N [Aut omated message] The Basophils) system which ge nerated this result tra nsmitted reference range : <=1.0. The reference r ana luisa was not used to int erpret this result as normal/abnormal . [facility] HospitalVtlkvmnRZSZGSFYUO3104-54-63 08:30:00 Test Item Value Reference Range Interpretation Comments Segs (test code = Segs) 46.1 45.0-75.[address] [facility] HospitalTnpnjslXBTUNKFRZQ5646-29-42 08:30:00 Test Item Value Reference Range Interpretation Comments Lymphocytes (test code = Lymphocytes) 30.9 20.0-40.[address] HospitalRpmsdisQRTSMPPBSZ6367-90-44 08:30:00 Test Item Value Reference Range Interpretation Comments Monocytes (test code = Monocytes) 18.4 2.0-12.[address] HospitalZdeajtvRPSNYCHWUZ7604-97-01 08:30:00 Test Item Value Reference Range Interpretation Comments Lymphocytes # (test code = Lymphocytes 1.4 1.0-5.5 N #) [facility] HospitalAhzyrzqTTPRIPOTBN1397-70-62 08:30:00 Test Item Value Reference Range Interpretation Comments Large Plt (test code = Slight *ABN*(09/22/2011 A Large Plt) 02:30:00) [facility] HospitalJemldowHCHKKZXPPT6654-21-73 08:30:00 Test Item Value Reference Range Interpretation Comments Eosinophils # (test code 0.2 See_Comment N [A utomated message] The = Eosinophils #) system whic h generated this result tra nsmitted reference range : <=0.5. The reference r ana luisa was not used to int erpret this result as normal/abnormal . [facility] HospitalPnnbxppBEKDHAZXQZ1952-19-28 08:30:00 Test Item Value Reference Range Interpretation Comments Basophils # (test code 0.0 See_Comment N [Aut omated message] The = Basophils #) system which generated this result tra nsmitted reference range : <=0.2. The reference r aan luisa was not used to int erpret this result as normal/abnormal . [facility] HospitalXhwxvfbBDUTXDSZDW1677-17-26 08:30:00 Test Item Value Reference Range Interpretation Comments Monocytes # (test code 0.8 See_Comment N [Aut omated message] The = Monocytes #) system which generated this result tra nsmitted reference range : <=0.8. The reference r ana luisa was not used to int erpret this result as normal/abnormal . [facility] CenterZulcqqlBYSPXFRWX8262-94-59 10:40:00 Test Item Value Reference Range Interpretation Comments Lactic Acid Lvl (test code = Lactic 0.9 0.5-2.2 N Acid Lvl) [facility] CenterRwxqnkcQOEAJOXOU5440-05-25 10:40:00 Test Item Value Reference Range Interpretation Comments Lactic Acid Lvl (test code = Lactic 0.9 0.5-2.2 N Acid Lvl) [facility] CenterQuchzqlEYCLXXKCX3964-05-83 10:40:00 Test Item Value Reference Range Interpretation Comments Lactic Acid Lvl (test code = Lactic 0.9 0.5-2.2 N Acid Lvl) [facility] CenterAtjtmsdTBVGYNZYH6364-37-00 10:40:00 Test Item Value Reference Range Interpretation Comments Lactic Acid Lvl (test code = Lactic 0.9 0.5-2.2 N Acid Lvl) [facility]2012-01-26 10:02:00 Test Item Value Reference Range Interpretation Comments WBC CSF (test code = 1 See_Comment N [Autom ated message] The WBC CSF) system which ge nerated this result transmit quoc reference range : <=5. The reference range was not used to interpr et this result as alisha l/abnormal. [facility]2012-01-26 10:02:00 Test Item Value Reference Range Interpretation Comments RBC CSF (test code = 17 See_Comment H [Autom ated message] The RBC CSF) system which ge nerated this result transmit quoc reference range : <=0. The reference range was not used to interpr et this result as alisha l/abnormal. [facility]2012-01-26 10:02:00 Test Item Value Reference Range Interpretation Comments Color CSF (test code Colorless (09/21/2011 N = Color CSF) 04:02:00) [facility]2012-01-26 10:02:00 Test Item Value Reference Range Interpretation Comments Clarity CSF (test code = Clear (09/21/2011 N Clarity CSF) 04:02:00) [facility]2012-01-26 10:02:00 Test Item Value Reference Range Interpretation Comments Tube Num CSF (test code = Tube Num CSF) 4 1 [facility]2012-01-26 10:02:00 Test Item Value Reference Range Interpretation Comments Supernat CSF (test Colorless (09/21/2011 N code = Supernat CSF) 04:02:00) [facility]2012-01-26 10:02:00 Test Item Value Reference Range Interpretation Comments Glucose CSF (test code = Glucose CSF) 71 45-[address] [facility] [id number] 10:02:00 Test Item Value Reference Range Interpretation Comments Protein CSF (test code = Protein CSF) 67 15-[address] [facility] YJQOXV3564-91-89 10:02:00 Test Item Value Reference Range Interpretation Comments Color CSF (test code Colorless (09/21/2011 N = Color CSF) 04:02:00) [facility]2012-01-26 10:02:00 Test Item Value Reference Range Interpretation Comments Clarity CSF (test code = Clear (09/21/2011 N Clarity CSF) 04:02:00) [facility]2012-01-26 10:02:00 Test Item Value Reference Range Interpretation Comments Tube Num CSF (test code = Tube Num CSF) 1 1 [facility]2012-01-26 10:02:00 Test Item Value Reference Range Interpretation Comments RBC CSF (test code = 178 See_Comment H [Autom ated message] The RBC CSF) system which ge nerated this result transmit quoc reference range : <=0. The reference range was not used to interpr et this result as alisha l/abnormal. [facility]2012-01-26 10:02:00 Test Item Value Reference Range Interpretation Comments Supernat CSF (test Colorless (09/21/2011 N code = Supernat CSF) 04:02:00) [facility]2012-01-26 10:02:00 Test Item Value Reference Range Interpretation Comments WBC CSF (test code = 1 See_Comment N [Autom ated message] The WBC CSF) system which ge nerated this result transmit quoc reference range : <=5. The reference range was not used to interpr et this result as alisha l/abnormal. [facility]FUN[facility] - GKWURLIW4612-23-39 10:02:00 Test Item Value Reference Range Interpretation Comments Crypto Ag CSF (test Negative (09/21/2011 N code = Crypto Ag CSF) 04:02:00) [facility] CenterMaytkddZDNSTSFEBP2245-68-66 10:02:00 Test Item Value Reference Range Interpretation Comments VDRL Scr CSF (test Non Reactive (09/21/2011 N code = VDRL Scr CSF) 04:02:00) [facility] CenterGymtkezMQAOAZDMHZ6367-96-07 10:02:00 Test Item Value Reference Range Interpretation Comments Source HSV (test code = Cerebral Spinal Fluid Source HSV) [facility] CenterKpglsmcMAMNDVCLMR0982-99-34 10:02:00 Test Item Value Reference Range Interpretation Comments HSV PCR Interp This sample was NON (test code = HSV DETECTED or BELOW THE PCR Interp) LOWER LIMITS OF DETECTION for HSV 1/2 DNA by real-time PCR using hybridization probe and melting curve analysis. [facility] CenterInamentEHVKXJDZLT5468-41-43 10:02:00 Test Item Value Reference Range Interpretation Comments HSV by PCR (test code Non Det 14(09/21/2011 N = HSV by PCR) 04:02:00) [facility] CenterVIRAL - HTTFQGXQ5967-79-59 10:02:00 Test Item Value Reference Range Interpretation Comments Enterovirus PCR CSF Negative 5(09/21/2011 N (test code = Enterovirus 04:02:00) PCR CSF) [facility]AgvozdtPluhbbaiojyd9097-98-31 10:02:00 Test Item Value Reference Range Interpretation Comments Culture: CSF w/Gram Stain (test code = Culture: CSF w/Gram Stain) [facility]2012-01-26 10:02:00 Test Item Value Reference Range Interpretation Comments WBC CSF (test code = 1 See_Comment N [Autom ated message] The WBC CSF) system which ge nerated this result transmit quoc reference range : <=5. The reference range was not used to interpr et this result as alisha l/abnormal. [facility]2012-01-26 10:02:00 Test Item Value Reference Range Interpretation Comments RBC CSF (test code = 17 See_Comment H [Autom ated message] The RBC CSF) system which ge nerated this result transmit quoc reference range : <=0. The reference range was not used to interpr et this result as alisha l/abnormal. [facility] [id number] 10:02:00 Test Item Value Reference Range Interpretation Comments Color CSF (test code Colorless (09/21/2011 N = Color CSF) 04:02:00) [facility]2012-01-26 10:02:00 Test Item Value Reference Range Interpretation Comments Clarity CSF (test code = Clear (09/21/2011 N Clarity CSF) 04:02:00) [facility]2012-01-26 10:02:00 Test Item Value Reference Range Interpretation Comments Tube Num CSF (test code = Tube Num CSF) [address] [facility] [id number] 10:02:00 Test Item Value Reference Range Interpretation Comments Supernat CSF (test Colorless (09/21/2011 N code = Supernat CSF) 04:02:00) [facility] [id number] 10:02:00 Test Item Value Reference Range Interpretation Comments Glucose CSF (test code = Glucose CSF) 71 45-[address] [facility] [id number] 10:02:00 Test Item Value Reference Range Interpretation Comments Protein CSF (test code = Protein CSF) 67 15-45 H [facility]2012-01-26 10:02:00 Test Item Value Reference Range Interpretation Comments Color CSF (test code Colorless (09/21/2011 N = Color CSF) 04:02:00) [facility]2012-01-26 10:02:00 Test Item Value Reference Range Interpretation Comments Clarity CSF (test code = Clear (09/21/2011 N Clarity CSF) 04:02:00) [facility]2012-01-26 10:02:00 Test Item Value Reference Range Interpretation Comments Tube Num CSF (test code = Tube Num CSF) 1 1 [facility]2012-01-26 10:02:00 Test Item Value Reference Range Interpretation Comments RBC CSF (test code = 178 See_Comment H [Autom ated message] The RBC CSF) system which ge nerated this result transmit quoc reference range : <=0. The reference range was not used to interpr et this result as alisha l/abnormal. [facility] EEVZFW5881-29-03 10:02:00 Test Item Value Reference Range Interpretation Comments Supernat CSF (test Colorless (09/21/2011 N code = Supernat CSF) 04:02:00) [facility]2012-01-26 10:02:00 Test Item Value Reference Range Interpretation Comments WBC CSF (test code = 1 See_Comment N [Autom ated message] The WBC CSF) system which ge nerated this result transmit quoc reference range : <=5. The reference range was not used to interpr et this result as alisha l/abnormal. [facility] - [id number] 10:02:00 Test Item Value Reference Range Interpretation Comments Crypto Ag CSF (test Negative (09/21/2011 N code = Crypto Ag CSF) 04:02:00) [facility] CenterLwsjmzzMMACNVRVNK9643-88-81 10:02:00 Test Item Value Reference Range Interpretation Comments VDRL Scr CSF (test Non Reactive (09/21/2011 N code = VDRL Scr CSF) 04:02:00) [facility] CenterDzhhivuQQMCQVJFOJ0340-29-61 10:02:00 Test Item Value Reference Range Interpretation Comments Source HSV (test code = Cerebral Spinal Fluid Source HSV) [facility] CenterKzofftpZFMPUWGAUC7414-47-83 10:02:00 Test Item Value Reference Range Interpretation Comments HSV PCR Interp This sample was NON (test code = HSV DETECTED or BELOW THE PCR Interp) LOWER LIMITS OF DETECTION for HSV 1/2 DNA by real-time PCR using hybridization probe and melting curve analysis. [facility] CenterQnrrczdGRFUQKFXHR3429-49-76 10:02:00 Test Item Value Reference Range Interpretation Comments HSV by PCR (test code Non Det 14(09/21/2011 N = HSV by PCR) 04:02:00) [facility] CenterVIRAL - [id number] 10:02:00 Test Item Value Reference Range Interpretation Comments Enterovirus PCR CSF Negative 5(09/21/2011 N (test code = Enterovirus 04:02:00) PCR CSF) [facility] CenterWjvypntTbosgcehpqmp4211-30-36 10:02:00 Test Item Value Reference Range Interpretation Comments Culture: CSF w/Gram Stain (test code = Culture: CSF w/Gram Stain) [facility] [id number] 10:02:00 Test Item Value Reference Range Interpretation Comments WBC CSF (test code = 1 See_Comment N [Autom ated message] The WBC CSF) system which ge nerated this result transmit quoc reference range : <=5. The reference range was not used to interpr et this result as alisha l/abnormal. [facility] [id number] 10:02:00 Test Item Value Reference Range Interpretation Comments RBC CSF (test code = 17 See_Comment H [Autom ated message] The RBC CSF) system which ge nerated this result transmit quoc reference range : <=0. The reference range was not used to interpr et this result as alisha l/abnormal. [facility] [id number] 10:02:00 Test Item Value Reference Range Interpretation Comments Color CSF (test code Colorless (09/21/2011 N = Color CSF) 04:02:00) [facility]2012-01-26 10:02:00 Test Item Value Reference Range Interpretation Comments Clarity CSF (test code = Clear (09/21/2011 N Clarity CSF) 04:02:00) [facility]2012-01-26 10:02:00 Test Item Value Reference Range Interpretation Comments Tube Num CSF (test code = Tube Num CSF) 4 1 [facility]2012-01-26 10:02:00 Test Item Value Reference Range Interpretation Comments Supernat CSF (test Colorless (09/21/2011 N code = Supernat CSF) 04:02:00) [facility]2012-01-26 10:02:00 Test Item Value Reference Range Interpretation Comments Glucose CSF (test code = Glucose CSF) 71 45-80 N [facility]2012-01-26 10:02:00 Test Item Value Reference Range Interpretation Comments Protein CSF (test code = Protein CSF) 67 15-45 H [facility]2012-01-26 10:02:00 Test Item Value Reference Range Interpretation Comments Color CSF (test code Colorless (09/21/2011 N = Color CSF) 04:02:00) [facility] [facility]2012-01-26 10:02:00 Test Item Value Reference Range Interpretation Comments Clarity CSF (test code = Clear (09/21/2011 N Clarity CSF) 04:02:00) [facility]2012-01-26 10:02:00 Test Item Value Reference Range Interpretation Comments Tube Num CSF (test code = Tube Num CSF) 1 1 [facility]2012-01-26 10:02:00 Test Item Value Reference Range Interpretation Comments RBC CSF (test code = 178 See_Comment H [Autom ated message] The RBC CSF) system which ge nerated this result transmit quoc reference range : <=0. The reference range was not used to interpr et this result as alisha l/abnormal. [facility]2012-01-26 10:02:00 Test Item Value Reference Range Interpretation Comments Supernat CSF (test Colorless (09/21/2011 N code = Supernat CSF) 04:02:00) [facility]2012-01-26 10:02:00 Test Item Value Reference Range Interpretation Comments WBC CSF (test code = 1 See_Comment N [Autom ated message] The WBC CSF) system which ge nerated this result transmit quoc reference range : <=5. The reference range was not used to interpr et this result as alisha l/abnormal. [facility] [id number] 10:02:00 Test Item Value Reference Range Interpretation Comments Crypto Ag CSF (test Negative (09/21/2011 N code = Crypto Ag CSF) 04:02:00) [facility] CenterJltdmeeYHBQGDNSSY1919-32-06 10:02:00 Test Item Value Reference Range Interpretation Comments VDRL Scr CSF (test Non Reactive (09/21/2011 N code = VDRL Scr CSF) 04:02:00) [facility] CenterXmkpwaxHDSWWFZMYP6342-47-65 10:02:00 Test Item Value Reference Range Interpretation Comments Source HSV (test code = Cerebral Spinal Fluid Source HSV) [facility] CenterFjihwkcAHTODPALHH2484-42-36 10:02:00 Test Item Value Reference Range Interpretation Comments HSV PCR Interp This sample was NON (test code = HSV DETECTED or BELOW THE PCR Interp) LOWER LIMITS OF DETECTION for HSV 1/2 DNA by real-time PCR using hybridization probe and melting curve analysis. [facility] CenterKskgasqEGOWLTWUKK5354-38-35 10:02:00 Test Item Value Reference Range Interpretation Comments HSV by PCR (test code Non Det 14(09/21/2011 N = HSV by PCR) 04:02:00) [facility] CenterVIRAL - [id number] 10:02:00 Test Item Value Reference Range Interpretation Comments Enterovirus PCR CSF Negative 5(09/21/2011 N (test code = Enterovirus 04:02:00) PCR CSF) [facility] CenterMvuoxceVlvnsjqyomyf2831-84-56 10:02:00 Test Item Value Reference Range Interpretation Comments Culture: CSF w/Gram Stain (test code = Culture: CSF w/Gram Stain) [facility] [id number] 10:02:00 Test Item Value Reference Range Interpretation Comments WBC CSF (test code = 1 See_Comment N [Autom ated message] The WBC CSF) system which ge nerated this result transmit quoc reference range : <=5. The reference range was not used to interpr et this result as alisha l/abnormal. [facility]2012-01-26 10:02:00 Test Item Value Reference Range Interpretation Comments RBC CSF (test code = 17 See_Comment H [Autom ated message] The RBC CSF) system which ge nerated this result transmit quoc reference range : <=0. The reference range was not used to interpr et this result as alisha l/abnormal. [facility] [id number] 10:02:00 Test Item Value Reference Range Interpretation Comments Color CSF (test code Colorless (09/21/2011 N = Color CSF) 04:02:00) [facility] [id number] 10:02:00 Test Item Value Reference Range Interpretation Comments Clarity CSF (test code = Clear (09/21/2011 N Clarity CSF) 04:02:00) [facility] [id number] 10:02:00 Test Item Value Reference Range Interpretation Comments Tube Num CSF (test code = Tube Num CSF) 4 1 [facility]2012-01-26 10:02:00 Test Item Value Reference Range Interpretation Comments Supernat CSF (test Colorless (09/21/2011 N code = Supernat CSF) 04:02:00) [facility] [id number] 10:02:00 Test Item Value Reference Range Interpretation Comments Glucose CSF (test code = Glucose CSF) 71 45-[address] [facility] [id number] 10:02:00 Test Item Value Reference Range Interpretation Comments Protein CSF (test code = Protein CSF) 67 15-45 H [facility]2012-01-26 10:02:00 Test Item Value Reference Range Interpretation Comments Color CSF (test code Colorless (09/21/2011 N = Color CSF) 04:02:00) [facility] [id number] 10:02:00 Test Item Value Reference Range Interpretation Comments Clarity CSF (test code = Clear (09/21/2011 N Clarity CSF) 04:02:00) [facility] [id number] 10:02:00 Test Item Value Reference Range Interpretation Comments Tube Num CSF (test code = Tube Num CSF) [address] [facility] [id number] 10:02:00 Test Item Value Reference Range Interpretation Comments RBC CSF (test code = 178 See_Comment H [Autom ated message] The RBC CSF) system which ge nerated this result transmit quoc reference range : <=0. The reference range was not used to interpr et this result as alisha l/abnormal. [facility] [id number] 10:02:00 Test Item Value Reference Range Interpretation Comments Supernat CSF (test Colorless (09/21/2011 N code = Supernat CSF) 04:02:00) [facility] [id number] 10:02:00 Test Item Value Reference Range Interpretation Comments WBC CSF (test code = 1 See_Comment N [Autom ated message] The WBC CSF) system which ge nerated this result transmit quoc reference range : <=5. The reference range was not used to interpr et this result as alisha l/abnormal. [facility] [id number] 10:02:00 Test Item Value Reference Range Interpretation Comments Crypto Ag CSF (test Negative (09/21/2011 N code = Crypto Ag CSF) 04:02:00) [facility] CenterTagznwzPUGSAKHDXR7400-30-31 10:02:00 Test Item Value Reference Range Interpretation Comments VDRL Scr CSF (test Non Reactive (09/21/2011 N code = VDRL Scr CSF) 04:02:00) [facility] CenterGaiamcvQGOUMQCDMK3712-24-04 10:02:00 Test Item Value Reference Range Interpretation Comments Source HSV (test code = Cerebral Spinal Fluid Source HSV) [facility] CenterAqxqjdiRGOFLGZVHQ3963-87-26 10:02:00 Test Item Value Reference Range Interpretation Comments HSV PCR Interp This sample was NON (test code = HSV DETECTED or BELOW THE PCR Interp) LOWER LIMITS OF DETECTION for HSV 1/2 DNA by real-time PCR using hybridization probe and melting curve analysis. [facility] CenterUxbyqweLUWNXDSIDX3294-08-35 10:02:00 Test Item Value Reference Range Interpretation Comments HSV by PCR (test code Non Det 14(09/21/2011 N = HSV by PCR) 04:02:00) [facility] CenterV[facility] - [id number] 10:02:00 Test Item Value Reference Range Interpretation Comments Enterovirus PCR CSF Negative 5(09/21/2011 N (test code = Enterovirus 04:02:00) PCR CSF) [facility] CenterFvybszoTgycuhfvcmho6671-89-03 10:02:00 Test Item Value Reference Range Interpretation Comments Culture: CSF w/Gram Stain (test code = Culture: CSF w/Gram Stain) [facility]PtongzjQOBXILKEZ5915-09-16 06:14:00 Test Item Value Reference Range Interpretation Comments Lipase Lvl (test code = Lipase Lvl) 272 73-393 N [facility] CenterIuqedlbBXWAUPUGT1522-90-12 06:14:00 Test Item Value Reference Range Interpretation Comments Lactic Acid Lvl (test code = Lactic 2.7 0.5-2.2 H Acid Lvl) [facility] CenterStmvbciGRIQBIHST4142-99-09 06:14:00 Test Item Value Reference Range Interpretation Comments Chloride Lvl (test code = Chloride Lvl) 101 95-109 N [facility] CenterIdgalwiKLNQVFIPO1813-79-66 06:14:00 Test Item Value Reference Range Interpretation Comments Potassium Lvl (test code = Potassium 4.6 3.5-5.1 N Lvl) [facility] CenterJgadhmhZIDQGNKRO2682-77-38 06:14:00 Test Item Value Reference Range Interpretation Comments Creatinine Lvl (test code = Creatinine 1.3 0.5-1.4 N Lvl) [facility] CenterFrlsctgEVPFSEBWV3200-77-23 06:14:00 Test Item Value Reference Range Interpretation Comments Sodium Lvl (test code = Sodium Lvl) 137 135-145 N [facility] CenterXckozzjXWAQFWNVK7243-23-08 06:14:00 Test Item Value Reference Range Interpretation Comments Calcium Lvl (test code = Calcium Lvl) 9.0 8.5-10.5 N [facility] CenterZnoietwOTQDGJBZM2031-73-24 06:14:00 Test Item Value Reference Range Interpretation Comments Glucose Lvl (test code = Glucose Lvl) 121 [facility] CenterCmvvlmlDDDPNFTAT6259-76-50 06:14:00 Test Item Value Reference Range Interpretation Comments BUN (test code = BUN) 19 7-22 N [facility] CenterXlrfqqxFOTJIYBEZ4502-22-19 06:14:00 Test Item Value Reference Range Interpretation Comments CO2 (test code = CO2) 28 24-32 N [facility] CenterNmsxkdqWQUZCCGFV6883-90-08 06:14:00 Test Item Value Reference Range Interpretation Comments Albumin Lvl (test code = Albumin Lvl) 3.4 3.5-5.0 L [facility] CenterOtqlefoUMJFCJDUB1113-30-38 06:14:00 Test Item Value Reference Range Interpretation Comments Bili Total (test code = Bili Total) 1.7 0.2-1.3 H [facility] CenterKpsmhktJAGPEAATR4801-44-91 06:14:00 Test Item Value Reference Range Interpretation Comments ALT (test code = ALT) 49 See_Comment N [Auto mated message] The system which ge nerated this result transmit quoc reference range : <=65. The reference range was not used to interpr et this result as alisha l/abnormal. [facility] CenterBbwisjkCRJJCPAUD7109-65-15 06:14:00 Test Item Value Reference Range Interpretation Comments Total Protein (test code = Total 7.2 6.4-8.4 N Protein) [facility] CenterKlniniiYKIRSVSZD0290-37-08 06:14:00 Test Item Value Reference Range Interpretation Comments Alk Phos (test code = Alk Phos) 170 39-136 H [facility] CenterFsihjhuTNEGLCQXZ6249-43-11 06:14:00 Test Item Value Reference Range Interpretation Comments AST (test code = AST) 37 See_Comment N [Auto mated message] The system which ge nerated this result transmit quoc reference range : <=37. The reference range was not used to interpr et this result as alisha l/abnormal. [facility] CenterGcozazhCICZJHIQO9910-80-68 06:14:00 Test Item Value Reference Range Interpretation Comments AGAP (test code = AGAP) 12.6 10.0-20.0 N [facility] CenterIymctjdFVGENXNJR0555-68-89 06:14:00 Test Item Value Reference Range Interpretation Comments B/C Ratio (test code = B/C Ratio) 15 6-25 N [facility] CenterXkfepuvLAETCFTKX8715-79-27 06:14:00 Test Item Value Reference Range Interpretation Comments Globulin (test code = Globulin) 3.8 2.0-4.0 N [facility] CenterAqntxbiTPRVTJEQH1918-12-28 06:14:00 Test Item Value Reference Range Interpretation Comments A/G Ratio (test code = A/G Ratio) 0.9 0.7-1.[address] [facility]BjateqkHYVXREWBQY0980-69-03 06:14:00 Test Item Value Reference Range Interpretation Comments PTT (test code = PTT) 28.9 s 22.9-35.[address] [facility] HospitalOaicdgpPNXCCOJVRG4453-96-80 06:14:00 Test Item Value Reference Range Interpretation Comments PT (test code = PT) 13.0 s 12.0-14.[address] [facility] HospitalIcwlfteDRCHVFHBYP9523-73-54 06:14:00 Test Item Value Reference Range Interpretation Comments INR (test code = INR) 0.98 0.85-1.[address] [facility] HospitalMhumwmmQDADEXEBNX5422-15-58 06:14:00 Test Item Value Reference Range Interpretation Comments WBC (test code = WBC) 15.0 3.7-10.[address] [facility] [facility] HospitalOtsddwwCWJVGHTVMI1697-63-63 06:14:00 Test Item Value Reference Range Interpretation Comments MCH (test code = MCH) 31.4 pg 27.0-31.[address] [facility] [facility] HospitalEajttgaBIMXSPDQPE0545-32-42 06:14:00 Test Item Value Reference Range Interpretation Comments MCV (test code = MCV) 90.5 80.0-94.[address] [facility] HospitalBexwzvlXFRJQPSKHT7363-48-63 06:14:00 Test Item Value Reference Range Interpretation Comments RBC (test code = RBC) 4.78 4.70-6.10 N [place] 931542-01-26 06:14:00 Test Item Value Reference Range Interpretation Comments Hct (test code = Hct) 43.3 42.0-54.[address] [facility] HospitalNayqitnSFKAZZBZXS8957-96-48 06:14:00 Test Item Value Reference Range Interpretation Comments Hgb (test code = Hgb) 15.0 14.0-18.[address] [facility] HospitalDeehscoLARQQVXWLL4199-50-05 06:14:00 Test Item Value Reference Range Interpretation Comments Platelet (test code = Platelet) 427 133-[address] [facility] [facility] HospitalFicqpzuQPZKVBOKMF7572-42-44 06:14:00 Test Item Value Reference Range Interpretation Comments MPV (test code = MPV) 6.9 7.4-10.[address] [facility] HospitalFfnocmxHXFTODLRUG8769-38-24 06:14:00 Test Item Value Reference Range Interpretation Comments MCHC (test code = MCHC) 34.7 32.0-36.[address] [facility] HospitalDuciemqQCGXCEZRLM8343-20-40 06:14:00 Test Item Value Reference Range Interpretation Comments RDW (test code = RDW) 12.6 11.5-14.[address] [facility] [facility] HospitalPauwudaGJSFNKMKBL0264-86-14 06:14:00 Test Item Value Reference Range Interpretation Comments Monocytes # (test code 0.8 See_Comment N [Aut omated message] The = Monocytes #) system which generated this result tra nsmitted reference range : <=0.8. The reference r ana luisa was not used to int erpret this result as normal/abnormal . [facility] HospitalRdqxnyoTPZTPTGHVH1058-21-79 06:14:00 Test Item Value Reference Range Interpretation Comments Eosinophils # (test code 0.0 See_Comment N [A utomated message] The = Eosinophils #) system whic h generated this result tra nsmitted reference range : <=0.5. The reference r ana luisa was not used to int erpret this result as normal/abnormal . [facility] HospitalTkbvxvkKZUVYRXPLJ1276-30-78 06:14:00 Test Item Value Reference Range Interpretation Comments Basophils # (test code 0.0 See_Comment N [Aut omated message] The = Basophils #) system which generated this result tra nsmitted reference range : <=0.2. The reference r ana luisa was not used to int erpret this result as normal/abnormal . [facility] HospitalSpqcqvnDSRLLYXQPL2915-50-63 06:14:00 Test Item Value Reference Range Interpretation Comments Lymphocytes # (test code = Lymphocytes 0.4 1.0-5.5 L #) [facility] HospitalIissmwmAGZEKUVVCG7523-92-38 06:14:00 Test Item Value Reference Range Interpretation Comments Basophils (test code = 0.0 See_Comment N [Aut omated message] The Basophils) system which ge nerated this result tra nsmitted reference range : <=1.0. The reference r ana luisa was not used to int erpret this result as normal/abnormal . [facility] HospitalKftwsqtTZDEUFXAYH0021-09-10 06:14:00 Test Item Value Reference Range Interpretation Comments Segs-Bands # (test code = Segs-Bands #) 13.8 1.5-8.[address] [facility] [facility] HospitalAsyrgigAWNONIRUYM0682-42-34 06:14:00 Test Item Value Reference Range Interpretation Comments Eosinophils (test code = 0.2 See_Comment N [A utomated message] The Eosinophils) system which ge nerated this result tra nsmitted reference range : <=4.0. The reference r ana luisa was not used to int erpret this result as normal/abnormal . [facility] HospitalPdxabdlPVKYGJAOKJ9618-69-01 06:14:00 Test Item Value Reference Range Interpretation Comments Lymphocytes (test code = Lymphocytes) 2.4 20.0-40.[address] [facility] HospitalSbqmcodARONFCKJRO5651-19-46 06:14:00 Test Item Value Reference Range Interpretation Comments Plt Morph (test code = Normal (09/21/2011 N Plt Morph) 00:14:00) [facility] HospitalOqoomtzKYBGNNFPON7301-67-70 06:14:00 Test Item Value Reference Range Interpretation Comments Segs (test code = Segs) 92.3 45.0-75.[address] [facility] HospitalLvzdypcNZZQGRCWYK4710-87-08 06:14:00 Test Item Value Reference Range Interpretation Comments RBC Morph (test code = Normal (09/21/2011 N RBC Morph) 00:14:00) [facility] HospitalBvmpshbNXSIURCJFZ9309-31-80 06:14:00 Test Item Value Reference Range Interpretation Comments Monocytes (test code = Monocytes) 5.1 2.0-12.0 N [facility] CenterUretoflMNNWHFYCZ1643-33-79 06:14:00 Test Item Value Reference Range Interpretation Comments Lipase Lvl (test code = Lipase Lvl) 272 73-393 N [facility] CenterTgrvaheCKPEKBZFT5445-83-62 06:14:00 Test Item Value Reference Range Interpretation Comments Lactic Acid Lvl (test code = Lactic 2.7 0.5-2.2 H Acid Lvl) [facility] CenterKpryrnzXXPRNOLQC2114-57-38 06:14:00 Test Item Value Reference Range Interpretation Comments Chloride Lvl (test code = Chloride Lvl) 101 95-109 N [facility] CenterFnntfxrXGVFAISXR7916-88-39 06:14:00 Test Item Value Reference Range Interpretation Comments Potassium Lvl (test code = Potassium 4.6 3.5-5.1 N Lvl) [facility] CenterUqofwkcZQCQZCIAD3154-84-96 06:14:00 Test Item Value Reference Range Interpretation Comments Creatinine Lvl (test code = Creatinine 1.3 0.5-1.4 N Lvl) [facility] CenterLipqnwbUSMFRNQSN8037-94-11 06:14:00 Test Item Value Reference Range Interpretation Comments Sodium Lvl (test code = Sodium Lvl) 137 135-145 N [facility] CenterCvnhpqfMBJAYOQMW0975-72-20 06:14:00 Test Item Value Reference Range Interpretation Comments Calcium Lvl (test code = Calcium Lvl) 9.0 8.5-10.5 N [facility] CenterIuakvkbOSTZUPKMQ7718-49-90 06:14:00 Test Item Value Reference Range Interpretation Comments Glucose Lvl (test code = Glucose Lvl) 121 [facility] CenterHyaaxcpOSPIGQGTH7097-94-88 06:14:00 Test Item Value Reference Range Interpretation Comments BUN (test code = BUN) 19 7-22 N [facility] CenterBjuzldqEAZVWOTSZ4714-05-75 06:14:00 Test Item Value Reference Range Interpretation Comments CO2 (test code = CO2) 28 24-32 N [facility] CenterQytubppZFDKPNXVU6568-20-25 06:14:00 Test Item Value Reference Range Interpretation Comments Albumin Lvl (test code = Albumin Lvl) 3.4 3.5-5.0 L [facility] CenterMpuyeptCVFPOPGQE7392-05-16 06:14:00 Test Item Value Reference Range Interpretation Comments Bili Total (test code = Bili Total) 1.7 0.2-1.3 H [facility] CenterBaopxvpJRGGJVEHS7733-91-42 06:14:00 Test Item Value Reference Range Interpretation Comments ALT (test code = ALT) 49 See_Comment N [Auto mated message] The system which ge nerated this result transmit quoc reference range : <=65. The reference range was not used to interpr et this result as alisha l/abnormal. [facility] CenterRszedhfFPLWSOPHF1368-86-20 06:14:00 Test Item Value Reference Range Interpretation Comments Total Protein (test code = Total 7.2 6.4-8.4 N Protein) [facility] CenterWnxxhidTYNYMWLTZ7469-15-17 06:14:00 Test Item Value Reference Range Interpretation Comments Alk Phos (test code = Alk Phos) 170 39-136 H [facility] CenterSmvfcjsQHKKDZHRS2531-45-34 06:14:00 Test Item Value Reference Range Interpretation Comments AST (test code = AST) 37 See_Comment N [Auto mated message] The system which ge nerated this result transmit quoc reference range : <=37. The reference range was not used to interpr et this result as alisha l/abnormal. [facility] CenterFiypumfZFKSNLUCA7796-93-75 06:14:00 Test Item Value Reference Range Interpretation Comments AGAP (test code = AGAP) 12.6 10.0-20.0 N [facility] CenterVemgdxyQGTVUNVII9575-98-36 06:14:00 Test Item Value Reference Range Interpretation Comments B/C Ratio (test code = B/C Ratio) 15 6-25 N [facility] CenterVrxxnsySCJFWYBKQ1361-44-68 06:14:00 Test Item Value Reference Range Interpretation Comments Globulin (test code = Globulin) 3.8 2.0-4.0 N [facility] CenterNpvoywwATMITESGH5495-92-80 06:14:00 Test Item Value Reference Range Interpretation Comments A/G Ratio (test code = A/G Ratio) 0.9 0.7-1.[address] HospitalYeuxzjhXPNNKPODVR4190-82-89 06:14:00 Test Item Value Reference Range Interpretation Comments PTT (test code = PTT) 28.9 s 22.9-35.[address] HospitalUnbfknyQKWCLKLUOG0129-29-77 06:14:00 Test Item Value Reference Range Interpretation Comments PT (test code = PT) 13.0 s 12.0-14.[address] HospitalBvzdsxpMVWSKLJYVX2001-04-73 06:14:00 Test Item Value Reference Range Interpretation Comments INR (test code = INR) 0.98 0.85-1.17 N [place] [address]-01-26 06:14:00 Test Item Value Reference Range Interpretation Comments WBC (test code = WBC) 15.0 3.7-10.[address] HospitalOrqyppzNIGKNQALEI5659-94-64 06:14:00 Test Item Value Reference Range Interpretation Comments MCH (test code = MCH) 31.4 pg 27.0-31.[address] [facility] HospitalHpvhxlnCUGMIPKUEQ7851-75-46 06:14:00 Test Item Value Reference Range Interpretation Comments MCV (test code = MCV) 90.5 80.0-94.[address] [facility] HospitalSyqohkyPJGCMTKSZL4888-89-41 06:14:00 Test Item Value Reference Range Interpretation Comments RBC (test code = RBC) 4.78 4.70-6.[address] HospitalUaiinjqKKLWFUWZIZ7625-83-67 06:14:00 Test Item Value Reference Range Interpretation Comments Hct (test code = Hct) 43.3 42.0-54.[address] HospitalAbkvsxaCQNBHOAQBI1423-62-97 06:14:00 Test Item Value Reference Range Interpretation Comments Hgb (test code = Hgb) 15.0 14.0-18.[address] [facility] [facility] HospitalYeiufdkLABHQEOOSG7503-78-34 06:14:00 Test Item Value Reference Range Interpretation Comments Platelet (test code = Platelet) 427 133-[address] [facility] HospitalDuiliwmFGIIALQXYR8612-72-35 06:14:00 Test Item Value Reference Range Interpretation Comments MPV (test code = MPV) 6.9 7.4-10.[address] HospitalAcrdrhyHZHLVZAQSM0828-83-26 06:14:00 Test Item Value Reference Range Interpretation Comments MCHC (test code = MCHC) 34.7 32.0-36.[address] [facility] HospitalDowcyzzKHKRVNPLBJ9299-23-81 06:14:00 Test Item Value Reference Range Interpretation Comments RDW (test code = RDW) 12.6 11.5-14.[address] [facility] [facility] HospitalBxiagaaKQRKRCUITC7558-55-33 06:14:00 Test Item Value Reference Range Interpretation Comments Monocytes # (test code 0.8 See_Comment N [Aut omated message] The = Monocytes #) system which generated this result tra nsmitted reference range : <=0.8. The reference r ana luisa was not used to int erpret this result as normal/abnormal . [facility] HospitalNwzlchfKFNTDTFXJT6842-19-92 06:14:00 Test Item Value Reference Range Interpretation Comments Eosinophils # (test code 0.0 See_Comment N [A utomated message] The = Eosinophils #) system whic h generated this result tra nsmitted reference range : <=0.5. The reference r ana luisa was not used to int erpret this result as normal/abnormal . [facility] HospitalWuehodiWCIKBKQLOJ3550-90-12 06:14:00 Test Item Value Reference Range Interpretation Comments Basophils # (test code 0.0 See_Comment N [Aut omated message] The = Basophils #) system which generated this result tra nsmitted reference range : <=0.2. The reference r ana luisa was not used to int erpret this result as normal/abnormal . [facility] HospitalYprygruHVXPNTVXGN7705-45-45 06:14:00 Test Item Value Reference Range Interpretation Comments Lymphocytes # (test code = Lymphocytes 0.4 1.0-5.5 L #) [facility] HospitalXplhzezYPBRJHNBVL5046-31-22 06:14:00 Test Item Value Reference Range Interpretation Comments Basophils (test code = 0.0 See_Comment N [Aut omated message] The Basophils) system which ge nerated this result tra nsmitted reference range : <=1.0. The reference r ana luisa was not used to int erpret this result as normal/abnormal . [facility] HospitalZknakbgCSZZQXCLVL7934-76-41 06:14:00 Test Item Value Reference Range Interpretation Comments Segs-Bands # (test code = Segs-Bands #) 13.8 1.5-8.[address] HospitalZacmpbiXIEUMJXMOE9205-09-07 06:14:00 Test Item Value Reference Range Interpretation Comments Eosinophils (test code = 0.2 See_Comment N [A utomated message] The Eosinophils) system which ge nerated this result tra nsmitted reference range : <=4.0. The reference r ana luisa was not used to int erpret this result as normal/abnormal . [facility] HospitalBmhhkgpRBPDSWHXJC9840-81-18 06:14:00 Test Item Value Reference Range Interpretation Comments Lymphocytes (test code = Lymphocytes) 2.4 20.0-40.[address] [facility] HospitalCxascsxPUOOLFCMRL6486-59-86 06:14:00 Test Item Value Reference Range Interpretation Comments Plt Morph (test code = Normal (09/21/2011 N Plt Morph) 00:14:00) [facility] HospitalHjtoiyiYYOFTCSRSJ8156-95-71 06:14:00 Test Item Value Reference Range Interpretation Comments Segs (test code = Segs) 92.3 45.0-75.[address] [facility] HospitalAmxywhiBRQGILUSGR6979-43-16 06:14:00 Test Item Value Reference Range Interpretation Comments RBC Morph (test code = Normal (09/21/2011 N RBC Morph) 00:14:00) [facility] HospitalZistdzkKCBHDGIPQK1942-36-14 06:14:00 Test Item Value Reference Range Interpretation Comments Monocytes (test code = Monocytes) 5.1 2.0-12.0 N [facility]DkqsejlXNWSQRKRY5624-65-28 06:14:00 Test Item Value Reference Range Interpretation Comments Lipase Lvl (test code = Lipase Lvl) 272 73-393 N [facility] CenterXaxtbuwVFBHDAHXQ8370-36-16 06:14:00 Test Item Value Reference Range Interpretation Comments Lactic Acid Lvl (test code = Lactic 2.7 0.5-2.2 H Acid Lvl) [facility] CenterUtlhfdwWTFZRHYOV5137-01-18 06:14:00 Test Item Value Reference Range Interpretation Comments Chloride Lvl (test code = Chloride Lvl) 101 95-109 N [facility] CenterMjyxdnfRMBYEZDKN8176-63-42 06:14:00 Test Item Value Reference Range Interpretation Comments Potassium Lvl (test code = Potassium 4.6 3.5-5.1 N Lvl) [facility] CenterEjjquvbCTAXDWMBC6256-82-01 06:14:00 Test Item Value Reference Range Interpretation Comments Creatinine Lvl (test code = Creatinine 1.3 0.5-1.4 N Lvl) [facility] CenterOcqgojoJTTLFHDOH4985-92-64 06:14:00 Test Item Value Reference Range Interpretation Comments Sodium Lvl (test code = Sodium Lvl) 137 135-145 N [facility] CenterYapmajaODOYJYXIQ7314-18-52 06:14:00 Test Item Value Reference Range Interpretation Comments Calcium Lvl (test code = Calcium Lvl) 9.0 8.5-10.5 N [facility] CenterBgjkxmmWPMNHBRPW8603-94-61 06:14:00 Test Item Value Reference Range Interpretation Comments Glucose Lvl (test code = Glucose Lvl) 121 [facility] CenterMxcfmyxHUBMWJRMM0081-96-60 06:14:00 Test Item Value Reference Range Interpretation Comments BUN (test code = BUN) 19 7-22 N [facility] CenterReyrjfuEEWLBUATY7998-66-45 06:14:00 Test Item Value Reference Range Interpretation Comments CO2 (test code = CO2) 28 24-32 N [facility] CenterFlpvsqzZUFOOBTFC6901-59-37 06:14:00 Test Item Value Reference Range Interpretation Comments Albumin Lvl (test code = Albumin Lvl) 3.4 3.5-5.0 L [facility] CenterEtcleklZNAHIGXTE5001-20-67 06:14:00 Test Item Value Reference Range Interpretation Comments Bili Total (test code = Bili Total) 1.7 0.2-1.3 H [facility] CenterJhzmfofXBRFSODQL4800-56-84 06:14:00 Test Item Value Reference Range Interpretation Comments ALT (test code = ALT) 49 See_Comment N [Auto mated message] The system which ge nerated this result transmit quoc reference range : <=65. The reference range was not used to interpr et this result as alisha l/abnormal. [facility] CenterKrrvrdmIYPQVHJCO5458-78-49 06:14:00 Test Item Value Reference Range Interpretation Comments Total Protein (test code = Total 7.2 6.4-8.4 N Protein) [facility] CenterPbbhuhgPCNKMONWV3645-74-03 06:14:00 Test Item Value Reference Range Interpretation Comments Alk Phos (test code = Alk Phos) 170 39-136 H [facility] CenterHbnmkvkQOTVHNNUM7242-68-60 06:14:00 Test Item Value Reference Range Interpretation Comments AST (test code = AST) 37 See_Comment N [Auto mated message] The system which ge nerated this result transmit quoc reference range : <=37. The reference range was not used to interpr et this result as alisha l/abnormal. [facility] CenterZidbybeNQGOGLWUJ4051-83-50 06:14:00 Test Item Value Reference Range Interpretation Comments AGAP (test code = AGAP) 12.6 10.0-20.0 N [facility] CenterEsgebzaTARSCWBEO7764-87-98 06:14:00 Test Item Value Reference Range Interpretation Comments B/C Ratio (test code = B/C Ratio) 15 6-25 N [facility] CenterQpexebhYJWLAAGIL1715-87-82 06:14:00 Test Item Value Reference Range Interpretation Comments Globulin (test code = Globulin) 3.8 2.0-4.0 N [facility] CenterPabeiccHETNHJJGF0383-43-33 06:14:00 Test Item Value Reference Range Interpretation Comments A/G Ratio (test code = A/G Ratio) 0.9 0.7-1.[address] [facility] HospitalQljurzmAZIUDWTJGR7644-17-01 06:14:00 Test Item Value Reference Range Interpretation Comments PTT (test code = PTT) 28.9 s 22.9-35.[address] HospitalAlbdgqfTQIPWMJIID7394-88-81 06:14:00 Test Item Value Reference Range Interpretation Comments PT (test code = PT) 13.0 s 12.0-14.[address] HospitalIxyzxljGLPUOKCOGC8857-83-20 06:14:00 Test Item Value Reference Range Interpretation Comments INR (test code = INR) 0.98 0.85-1.[address] [address] HospitalRyaamdbSNFSHTUSIY5835-06-12 06:14:00 Test Item Value Reference Range Interpretation Comments WBC (test code = WBC) 15.0 3.7-10.[address] HospitalPokdbukQWYALOLXJC4162-82-46 06:14:00 Test Item Value Reference Range Interpretation Comments MCH (test code = MCH) 31.4 pg 27.0-31.[address] [facility] HospitalHigrmozBTEBQJNURQ3389-45-60 06:14:00 Test Item Value Reference Range Interpretation Comments MCV (test code = MCV) 90.5 80.0-94.[address] HospitalXgnejsaBQITAKZIPZ7440-70-73 06:14:00 Test Item Value Reference Range Interpretation Comments RBC (test code = RBC) 4.78 4.70-6.[address] HospitalCwcggomIXLWPJOXHC2499-27-78 06:14:00 Test Item Value Reference Range Interpretation Comments Hct (test code = Hct) 43.3 42.0-54.[address] HospitalDddnhjfEGHCSOTRJD5708-48-15 06:14:00 Test Item Value Reference Range Interpretation Comments Hgb (test code = Hgb) 15.0 14.0-18.[address] [facility] HospitalUjklhweRCCONVPUTH9340-21-64 06:14:00 Test Item Value Reference Range Interpretation Comments Platelet (test code = Platelet) 427 133-[address] HospitalSozvslnFOUGZTCIOZ7437-39-78 06:14:00 Test Item Value Reference Range Interpretation Comments MPV (test code = MPV) 6.9 7.4-10.[address] HospitalGwcmmijUXXKRYHMWD9952-60-55 06:14:00 Test Item Value Reference Range Interpretation Comments MCHC (test code = MCHC) 34.7 32.0-36.[address] HospitalMlrpjhaFZXPNWJMRX0020-28-90 06:14:00 Test Item Value Reference Range Interpretation Comments RDW (test code = RDW) 12.6 11.5-14.[address] [facility] HospitalMwqpszjLPJJYNIWHT5085-04-34 06:14:00 Test Item Value Reference Range Interpretation Comments Monocytes # (test code 0.8 See_Comment N [Aut omated message] The = Monocytes #) system which generated this result tra nsmitted reference range : <=0.8. The reference r ana luisa was not used to int erpret this result as normal/abnormal . [facility] HospitalMzwoamhIXHFLPDOSC2050-99-30 06:14:00 Test Item Value Reference Range Interpretation Comments Eosinophils # (test code 0.0 See_Comment N [A utomated message] The = Eosinophils #) system whic h generated this result tra nsmitted reference range : <=0.5. The reference r ana luisa was not used to int erpret this result as normal/abnormal . [facility] HospitalSevxddbNDIPKIQHCS6404-52-45 06:14:00 Test Item Value Reference Range Interpretation Comments Basophils # (test code 0.0 See_Comment N [Aut omated message] The = Basophils #) system which generated this result tra nsmitted reference range : <=0.2. The reference r ana luisa was not used to int erpret this result as normal/abnormal . [facility] HospitalTitgtayUQHYCMGEWZ6185-18-06 06:14:00 Test Item Value Reference Range Interpretation Comments Lymphocytes # (test code = Lymphocytes 0.4 1.0-5.5 L #) [facility] HospitalMdgvlleRIJIGIZIWD2819-80-77 06:14:00 Test Item Value Reference Range Interpretation Comments Basophils (test code = 0.0 See_Comment N [Aut omated message] The Basophils) system which ge nerated this result tra nsmitted reference range : <=1.0. The reference r ana luisa was not used to int erpret this result as normal/abnormal . [facility] HospitalYoeohspJWZCUZTPPZ1058-64-37 06:14:00 Test Item Value Reference Range Interpretation Comments Segs-Bands # (test code = Segs-Bands #) 13.8 1.5-8.[address] HospitalMpqggzjJDHAENTPYM9971-84-63 06:14:00 Test Item Value Reference Range Interpretation Comments Eosinophils (test code = 0.2 See_Comment N [A utomated message] The Eosinophils) system which ge nerated this result tra nsmitted reference range : <=4.0. The reference r ana luisa was not used to int erpret this result as normal/abnormal . [facility] HospitalFcfpgoiNMZPWXYPZZ7594-38-89 06:14:00 Test Item Value Reference Range Interpretation Comments Lymphocytes (test code = Lymphocytes) 2.4 20.0-40.[address] HospitalHjgnifnETWWFSKWZJ3074-05-90 06:14:00 Test Item Value Reference Range Interpretation Comments Plt Morph (test code = Normal (09/21/2011 N Plt Morph) 00:14:00) [facility] HospitalTbsqaveSCIHJRVBEY1041-60-60 06:14:00 Test Item Value Reference Range Interpretation Comments Segs (test code = Segs) 92.3 45.0-75.[address] HospitalNnyvtxcYJDSMHBEVG4574-11-06 06:14:00 Test Item Value Reference Range Interpretation Comments RBC Morph (test code = Normal (09/21/2011 N RBC Morph) 00:14:00) [facility] HospitalXbodsqnULEKKITHTV2680-06-42 06:14:00 Test Item Value Reference Range Interpretation Comments Monocytes (test code = Monocytes) 5.1 2.0-12.0 N [facility] CenterNbnwysxDUPAVATIP1429-12-08 06:14:00 Test Item Value Reference Range Interpretation Comments Lipase Lvl (test code = Lipase Lvl) 272 73-393 N [facility] CenterXshdefnIDLAGDDZY4583-61-95 06:14:00 Test Item Value Reference Range Interpretation Comments Lactic Acid Lvl (test code = Lactic 2.7 0.5-2.2 H Acid Lvl) [facility] CenterAaeqlpiSWJIYQBMC2777-30-53 06:14:00 Test Item Value Reference Range Interpretation Comments Chloride Lvl (test code = Chloride Lvl) 101 95-109 N [facility] CenterUfmihrjZBTKEWOIR6012-61-83 06:14:00 Test Item Value Reference Range Interpretation Comments Potassium Lvl (test code = Potassium 4.6 3.5-5.1 N Lvl) [facility] CenterZlanzjiWZMSVVQNR7648-41-66 06:14:00 Test Item Value Reference Range Interpretation Comments Creatinine Lvl (test code = Creatinine 1.3 0.5-1.4 N Lvl) [facility] CenterMrmncfmLHTDEJYOC6914-97-24 06:14:00 Test Item Value Reference Range Interpretation Comments Sodium Lvl (test code = Sodium Lvl) 137 135-145 N [facility] CenterScolxloXDUBJUAZZ3111-16-57 06:14:00 Test Item Value Reference Range Interpretation Comments Calcium Lvl (test code = Calcium Lvl) 9.0 8.5-10.5 N [facility] CenterIyefvmuUYLNDECNG9701-42-19 06:14:00 Test Item Value Reference Range Interpretation Comments Glucose Lvl (test code = Glucose Lvl) 121 [facility] CenterEtcdujwAZFBZRXUG9473-02-11 06:14:00 Test Item Value Reference Range Interpretation Comments BUN (test code = BUN) 19 7-22 N [facility] CenterHtnhejrPUZTFKLJQ4151-74-62 06:14:00 Test Item Value Reference Range Interpretation Comments CO2 (test code = CO2) 28 24-32 N [facility] CenterLtxbeivIFATNQEHA5166-35-49 06:14:00 Test Item Value Reference Range Interpretation Comments Albumin Lvl (test code = Albumin Lvl) 3.4 3.5-5.0 L [facility] CenterIqcbzcbOQYUWNHIU5510-91-16 06:14:00 Test Item Value Reference Range Interpretation Comments Bili Total (test code = Bili Total) 1.7 0.2-1.3 H [facility] CenterAkxcawrRPZWCCTKX2902-53-37 06:14:00 Test Item Value Reference Range Interpretation Comments ALT (test code = ALT) 49 See_Comment N [Auto mated message] The system which ge nerated this result transmit quoc reference range : <=65. The reference range was not used to interpr et this result as alisha l/abnormal. [facility] CenterQijozotVNMELNSMD0033-69-18 06:14:00 Test Item Value Reference Range Interpretation Comments Total Protein (test code = Total 7.2 6.4-8.4 N Protein) [facility] CenterWzuwkgbWXKMNFWSY6463-97-71 06:14:00 Test Item Value Reference Range Interpretation Comments Alk Phos (test code = Alk Phos) 170 39-136 H [facility] CenterIsmrahtJRIYWZXVH4052-13-75 06:14:00 Test Item Value Reference Range Interpretation Comments AST (test code = AST) 37 See_Comment N [Auto mated message] The system which ge nerated this result transmit quoc reference range : <=37. The reference range was not used to interpr et this result as alisha l/abnormal. [facility] CenterAtppuzbPSSMJGLIP3821-25-03 06:14:00 Test Item Value Reference Range Interpretation Comments AGAP (test code = AGAP) 12.6 10.0-20.0 N [facility] CenterZbuorbdQNHWMVVNM9110-75-85 06:14:00 Test Item Value Reference Range Interpretation Comments B/C Ratio (test code = B/C Ratio) 15 6-25 N [facility] CenterMceyhtzNXPSXUNHT0100-44-80 06:14:00 Test Item Value Reference Range Interpretation Comments Globulin (test code = Globulin) 3.8 2.0-4.0 N [facility] CenterVziwrqrULCNSUSTU3138-05-04 06:14:00 Test Item Value Reference Range Interpretation Comments A/G Ratio (test code = A/G Ratio) 0.9 0.7-1.[address] [facility] HospitalCxxermkBMMZJAONEQ3597-23-32 06:14:00 Test Item Value Reference Range Interpretation Comments PTT (test code = PTT) 28.9 s 22.9-35.[address] HospitalVwrrqupZYHHHMSOTH5925-90-16 06:14:00 Test Item Value Reference Range Interpretation Comments PT (test code = PT) 13.0 s 12.0-14.[address] HospitalBwdcefaQZQHFCRGPR0129-20-44 06:14:00 Test Item Value Reference Range Interpretation Comments INR (test code = INR) 0.98 0.85-1.[address] HospitalSxfjbkbMICUUJVRBU7560-94-60 06:14:00 Test Item Value Reference Range Interpretation Comments WBC (test code = WBC) 15.0 3.7-10.[address] [facility] HospitalEksiwgqGKZLKWFFZC3800-18-14 06:14:00 Test Item Value Reference Range Interpretation Comments MCH (test code = MCH) 31.4 pg 27.0-31.[address] HospitalCecrhapMWUIEXBYEQ5070-47-67 06:14:00 Test Item Value Reference Range Interpretation Comments MCV (test code = MCV) 90.5 80.0-94.[address] HospitalTjkqimoKCNQPFTNDI1201-61-75 06:14:00 Test Item Value Reference Range Interpretation Comments RBC (test code = RBC) 4.78 4.70-6.[address] [facility] HospitalGziqmrrJXEXZOPGYA8944-55-04 06:14:00 Test Item Value Reference Range Interpretation Comments Hct (test code = Hct) 43.3 42.0-54.[address] [facility] HospitalKctzqafJXEGXLXSWK0357-27-19 06:14:00 Test Item Value Reference Range Interpretation Comments Hgb (test code = Hgb) 15.0 14.0-18.[address] HospitalYhfdiapBVJDTFXWWV4293-98-45 06:14:00 Test Item Value Reference Range Interpretation Comments Platelet (test code = Platelet) 427 133-[address] [facility] HospitalBmhtaxsAZWODGJRZP1109-23-28 06:14:00 Test Item Value Reference Range Interpretation Comments MPV (test code = MPV) 6.9 7.4-10.[address] HospitalSuwydzsFNXYOHSRGT6498-54-02 06:14:00 Test Item Value Reference Range Interpretation Comments MCHC (test code = MCHC) 34.7 32.0-36.[address] HospitalFcajxhzWIPQOEOSMR0029-92-51 06:14:00 Test Item Value Reference Range Interpretation Comments RDW (test code = RDW) 12.6 11.5-14.[address] HospitalXyzfdmbSJYIGGPXIW7919-11-79 06:14:00 Test Item Value Reference Range Interpretation Comments Monocytes # (test code 0.8 See_Comment N [Aut omated message] The = Monocytes #) system which generated this result tra nsmitted reference range : <=0.8. The reference r ana luisa was not used to int erpret this result as normal/abnormal . [facility] HospitalTxhztrnQKSKVNLOUO2118-80-22 06:14:00 Test Item Value Reference Range Interpretation Comments Eosinophils # (test code 0.0 See_Comment N [A utomated message] The = Eosinophils #) system whic h generated this result tra nsmitted reference range : <=0.5. The reference r ana luisa was not used to int erpret this result as normal/abnormal . [facility] HospitalJsmwfvoSBNRWAIJSU7965-85-32 06:14:00 Test Item Value Reference Range Interpretation Comments Basophils # (test code 0.0 See_Comment N [Aut omated message] The = Basophils #) system which generated this result tra nsmitted reference range : <=0.2. The reference r ana luisa was not used to int erpret this result as normal/abnormal . [facility] HospitalFzayuumOHQCDJTHMP7654-90-85 06:14:00 Test Item Value Reference Range Interpretation Comments Lymphocytes # (test code = Lymphocytes 0.4 1.0-5.5 L #) [facility] HospitalYslbntlIZCCSEUIRM6527-48-61 06:14:00 Test Item Value Reference Range Interpretation Comments Basophils (test code = 0.0 See_Comment N [Aut omated message] The Basophils) system which ge nerated this result tra nsmitted reference range : <=1.0. The reference r ana luisa was not used to int erpret this result as normal/abnormal . [facility] HospitalEwqriyyBTFLLHWJQA8447-30-58 06:14:00 Test Item Value Reference Range Interpretation Comments Segs-Bands # (test code = Segs-Bands #) 13.8 1.5-8.[address] HospitalNnrrmlxJBUPIDDSPM6387-24-45 06:14:00 Test Item Value Reference Range Interpretation Comments Eosinophils (test code = 0.2 See_Comment N [A utomated message] The Eosinophils) system which ge nerated this result tra nsmitted reference range : <=4.0. The reference r ana luisa was not used to int erpret this result as normal/abnormal . [facility] HospitalOzoftbeJXTTZLQDWP5606-96-69 06:14:00 Test Item Value Reference Range Interpretation Comments Lymphocytes (test code = Lymphocytes) 2.4 20.0-40.[address] HospitalSohkiauLQEKMGEIJP9166-24-93 06:14:00 Test Item Value Reference Range Interpretation Comments Plt Morph (test code = Normal (09/21/2011 N Plt Morph) 00:14:00) [facility] HospitalFymviayNUMWPTLMQP8747-85-91 06:14:00 Test Item Value Reference Range Interpretation Comments Segs (test code = Segs) 92.3 45.0-75.[address] HospitalVuhqsjwGONCASVHAE1058-60-09 06:14:00 Test Item Value Reference Range Interpretation Comments RBC Morph (test code = Normal (09/21/2011 N RBC Morph) 00:14:00) [facility] HospitalAtuusmgTMCDKDDGPD9592-27-31 06:14:00 Test Item Value Reference Range Interpretation Comments Monocytes (test code = Monocytes) 5.1 2.0-12.0 N [facility]RsriqlmBavtwopgphcs3028-34-67 05:46:00 Test Item Value Reference Range Interpretation Comments Culture: Blood (test code = Culture: Blood) [facility]ballQaipvboAdalizsxijld3437-68-64 05:46:00 Test Item Value Reference Range Interpretation Comments Culture: Urine (test code = Culture: Urine) [facility]ballDckrihmUmtnanglbdpu9790-41-57 05:46:00 Test Item Value Reference Range Interpretation Comments Culture: Blood (test code = Culture: Blood) [facility]ballIpvhpfyPxsjnktrvzvb9958-75-40 05:46:00 Test Item Value Reference Range Interpretation Comments Culture: Urine (test code = Culture: Urine) [facility]ballEfxcplzSbmfloevspmw1259-72-66 05:46:00 Test Item Value Reference Range Interpretation Comments Culture: Blood (test code = Culture: Blood) [facility]ballDcwqmyqUoaerfvkbmak8046-55-44 05:46:00 Test Item Value Reference Range Interpretation Comments Culture: Urine (test code = Culture: Urine) [facility] TomballRovxlubYhrizoerxact7778-52-19 05:46:00 Test Item Value Reference Range Interpretation Comments Culture: Blood (test code = Culture: Blood) [facility]ballSkdibsbPvrjwvjptzti2576-99-43 05:46:00 Test Item Value Reference Range Interpretation Comments Culture: Urine (test code = Culture: Urine) [facility] TomballBescbmkAKYMUTWMBO6196-34-17 05:20:00 Test Item Value Reference Range Interpretation Comments UA Ketones (test code Negative = UA Ketones) *NA*(09/20/2011 23:20:00) [facility] TomballCpzguczOTXVFISOPI8046-30-14 05:20:00 Test Item Value Reference Range Interpretation Comments UA Bili (test code = Negative *NA*(09/20/2011 UA Bili) 23:20:00) [facility]FbcrvybJOUHVTGLCM1168-22-81 05:20:00 Test Item Value Reference Range Interpretation Comments UA Leuk Est (test code Trace *ABN*(09/20/2011 A = UA Leuk Est) 23:20:00) [facility] CenterAtnseewKKJPVRMGYE0885-61-08 05:20:00 Test Item Value Reference Range Interpretation Comments UA Nitrite (test code Negative (09/20/2011 N = UA Nitrite) 23:20:00) [facility] CenterOyollxtPLCQRIDHZW8215-82-06 05:20:00 Test Item Value Reference Range Interpretation Comments UA Urobilinogen (test code = UA 0.2 0.1-1.0 N Urobilinogen) [facility] CenterCxgyrjxXJXIVIBJGK2924-91-40 05:20:00 Test Item Value Reference Range Interpretation Comments UA Blood (test code = Trace *ABN*(09/20/2011 A UA Blood) 23:20:00) [facility] CenterSwmhugzMTYNEALHGP7210-33-95 05:20:00 Test Item Value Reference Range Interpretation Comments Micro? (test code = Performed (09/20/2011 N Micro?) 23:20:00) [facility] CenterIinidvsLLUOXYGVXL9160-20-66 05:20:00 Test Item Value Reference Range Interpretation Comments UA WBC (test code = UA 11-20 /HPF A WBC) *ABN*(09/20/2011 23:20:00) [facility]GtanxozWIJPUYFHNF3812-97-43 05:20:00 Test Item Value Reference Range Interpretation Comments UA Sq Epi (test code = Rare /LPF (09/20/2011 N UA Sq Epi) 23:20:00) [facility] CenterZylfidiOGAQOZIFBQ5730-06-52 05:20:00 Test Item Value Reference Range Interpretation Comments UA Bacteria (test code = Few /HPF (09/20/2011 N UA Bacteria) 23:20:00) [facility] MarshallZnnhhnoIZDPJAGQKK8847-75-87 05:20:00 Test Item Value Reference Range Interpretation Comments UA RBC (test None Seen See_Comment N [Automated mes kota] code = UA RBC) (09/20/2011 The system [facility] 23:20:00) generated this result transmitted ref erence range: <=2. The reference range was not used to int erpret this result as normal/abnormal . [facility] MarshallRyrauuqNOQFAXFOLS5441-09-99 05:20:00 Test Item Value Reference Range Interpretation Comments UA Protein (test code Negative (09/20/2011 N = UA Protein) 23:20:00) [facility]ballKhuvtkqUBOTISRNPB1843-45-19 05:20:00 Test Item Value Reference Range Interpretation Comments UA pH (test code = UA pH) 6.5 1 5.0-8.0 N [facility] MarshallJynifbqTZKEPTCBCK2447-12-07 05:20:00 Test Item Value Reference Range Interpretation Comments UA Glucose (test code Negative (09/20/2011 N = UA Glucose) 23:20:00) [id number] 05:20:00 Test Item Value Reference Range Interpretation Comments UA Color (test code = Yellow *NA*(09/20/2011 UA Color) 23:20:00) [id number] 05:20:00 Test Item Value Reference Range Interpretation Comments UA Spec Grav (test code = UA Spec 1.034 1 H Grav) [id number] 05:20:00 Test Item Value Reference Range Interpretation Comments UA Turbidity (test code = Clear (09/20/2011 N UA Turbidity) 23:20:00) [id number] 05:20:00 Test Item Value Reference Range Interpretation Comments UA Ketones (test code Negative = UA Ketones) *NA*(09/20/2011 23:20:00) [facility] MarshallGdsfwqkWKMEFMIKWO4130-08-02 05:20:00 Test Item Value Reference Range Interpretation Comments UA Bili (test code = Negative *NA*(09/20/2011 UA Bili) 23:20:00) [facility] Marsha[id number] 05:20:00 Test Item Value Reference Range Interpretation Comments UA Leuk Est (test code Trace *ABN*(09/20/2011 A = UA Leuk Est) 23:20:00) [facility] M[id number] 05:20:00 Test Item Value Reference Range Interpretation Comments UA Nitrite (test code Negative (09/20/2011 N = UA Nitrite) 23:20:00) [facility] Marsha[id number] 05:20:00 Test Item Value Reference Range Interpretation Comments UA Urobilinogen (test code = UA 0.2 0.1-1.0 N Urobilinogen) [facility] Marsha[id number] 05:20:00 Test Item Value Reference Range Interpretation Comments UA Blood (test code = Trace *ABN*(09/20/2011 A UA Blood) 23:20:00) [facility] Ma[id number] 05:20:00 Test Item Value Reference Range Interpretation Comments Micro? (test code = Performed (09/20/2011 N Micro?) 23:20:00) [facility] Marsha[id number] 05:20:00 Test Item Value Reference Range Interpretation Comments UA WBC (test code = UA 11-20 /HPF A WBC) *ABN*(09/20/2011 23:20:00) [facility] Ma[id number] 05:20:00 Test Item Value Reference Range Interpretation Comments UA Sq Epi (test code = Rare /LPF (09/20/2011 N UA Sq Epi) 23:20:00) [facility] M[id number] 05:20:00 Test Item Value Reference Range Interpretation Comments UA Bacteria (test code = Few /HPF (09/20/2011 N UA Bacteria) 23:20:00) [facility] Marsha[id number] 05:20:00 Test Item Value Reference Range Interpretation Comments UA RBC (test None Seen See_Comment N [Automated [place]] code = UA RBC) (09/20/2011 The system [facility] 23:20:00) generated this result transmitted ref erence range: <=2. The reference range was not used to int erpret this result as normal/abnormal . [facility] M[id number] 05:20:00 Test Item Value Reference Range Interpretation Comments UA Protein (test code Negative (09/20/2011 N = UA Protein) 23:20:00) [facility] M[id number] 05:20:00 Test Item Value Reference Range Interpretation Comments UA pH (test code = UA pH) 6.5 1 5.0-8.0 N [facility] M[id number] 05:20:00 Test Item Value Reference Range Interpretation Comments UA Glucose (test code Negative (09/20/2011 N = UA Glucose) 23:20:00) [id number] 05:20:00 Test Item Value Reference Range Interpretation Comments UA Color (test code = Yellow *NA*(09/20/2011 UA Color) 23:20:00) [facility]ballCnrdmeoTVTULYUEWN3843-20-00 05:20:00 Test Item Value Reference Range Interpretation Comments UA Spec Grav (test code = UA Spec 1.034 1 H Grav) [facility] MarshallAygnrqgDQOESPFCIL1492-51-20 05:20:00 Test Item Value Reference Range Interpretation Comments UA Turbidity (test code = Clear (09/20/2011 N UA Turbidity) 23:20:00) [facility]ba[id number] 05:20:00 Test Item Value Reference Range Interpretation Comments UA Ketones (test code Negative = UA Ketones) *NA*(09/20/2011 23:20:00) [facility]ballBhgbotyBBZMIFQTEE1834-31-61 05:20:00 Test Item Value Reference Range Interpretation Comments UA Bili (test code = Negative *NA*(09/20/2011 UA Bili) 23:20:00) [facility] MarshallSidwtltZKEMVYWLQI5656-65-00 05:20:00 Test Item Value Reference Range Interpretation Comments UA Leuk Est (test code Trace *ABN*(09/20/2011 A = UA Leuk Est) 23:20:00) [facility]ballRscgnxjWPERFHNSXZ2425-07-35 05:20:00 Test Item Value Reference Range Interpretation Comments UA Nitrite (test code Negative (09/20/2011 N = UA Nitrite) 23:20:00) [facility] Marsha[id number] 05:20:00 Test Item Value Reference Range Interpretation Comments UA Urobilinogen (test code = UA 0.2 0.1-1.0 N Urobilinogen) [facility] MarshallOjzufrgFEQDCMYVLR5414-02-17 05:20:00 Test Item Value Reference Range Interpretation Comments UA Blood (test code = Trace *ABN*(09/20/2011 A UA Blood) 23:20:00) [facility] Marsha[id number] 05:20:00 Test Item Value Reference Range Interpretation Comments Micro? (test code = Performed (09/20/2011 N Micro?) 23:20:00) [facility] MarshallQdbdgiwHYSDKBOUBV0297-20-76 05:20:00 Test Item Value Reference Range Interpretation Comments UA WBC (test code = UA 11-20 /HPF A WBC) *ABN*(09/20/2011 23:20:00) [facility]ballLlttbgcIPOJYMYZWS2945-35-93 05:20:00 Test Item Value Reference Range Interpretation Comments UA Sq Epi (test code = Rare /LPF (09/20/2011 N UA Sq Epi) 23:20:00) [facility] Marsha[id number] 05:20:00 Test Item Value Reference Range Interpretation Comments UA Bacteria (test code = Few /HPF (09/20/2011 N UA Bacteria) 23:20:00) [facility]ballZ[id number] 05:20:00 Test Item Value Reference Range Interpretation Comments UA RBC (test None Seen See_Comment N [Automated [place]] code = UA RBC) (09/20/2011 The system [facility] 23:20:00) generated this result transmitted ref erence range: <=2. The reference range was not used to int erpret this result as normal/abnormal . [facility]ballVxctqlnGEZFILSIZS4663-03-51 05:20:00 Test Item Value Reference Range Interpretation Comments UA Protein (test code Negative (09/20/2011 N = UA Protein) 23:20:00) [facility]ballWsfetxnRPOBYZFEGU7468-74-70 05:20:00 Test Item Value Reference Range Interpretation Comments UA pH (test code = UA pH) 6.5 1 5.0-8.0 N [facility] M[id number] 05:20:00 Test Item Value Reference Range Interpretation Comments UA Glucose (test code Negative (09/20/2011 N = UA Glucose) 23:20:00) [facility]ballR[id number] 05:20:00 Test Item Value Reference Range Interpretation Comments UA Color (test code = Yellow *NA*(09/20/2011 UA Color) 23:20:00) [facility]ballWsismgeQHWXBTEOAL5725-16-37 05:20:00 Test Item Value Reference Range Interpretation Comments UA Spec Grav (test code = UA Spec 1.034 1 H Grav) [facility] MarshallIhrvzweDJGJTXGDRP7207-59-02 05:20:00 Test Item Value Reference Range Interpretation Comments UA Turbidity (test code = Clear (09/20/2011 N UA Turbidity) 23:20:00) [facility] CenterTznrvmmQVWMJCBTKR1360-46-08 05:20:00 Test Item Value Reference Range Interpretation Comments UA Ketones (test code Negative = UA Ketones) *NA*(09/20/2011 23:20:00) [facility] MarshallMqaprldDDMZEZFMMP0878-16-20 05:20:00 Test Item Value Reference Range Interpretation Comments UA Bili (test code = Negative *NA*(09/20/2011 UA Bili) 23:20:00) [facility] Marsha[id number] 05:20:00 Test Item Value Reference Range Interpretation Comments UA Leuk Est (test code Trace *ABN*(09/20/2011 A = UA Leuk Est) 23:20:00) [facility]ballYposlbiFBVIVJXUEO4294-14-80 05:20:00 Test Item Value Reference Range Interpretation Comments UA Nitrite (test code Negative (09/20/2011 N = UA Nitrite) 23:20:00) [facility] Marsha[id number] 05:20:00 Test Item Value Reference Range Interpretation Comments UA Urobilinogen (test code = UA 0.2 0.1-1.0 N Urobilinogen) [facility] CenterXtgramfRWXYUKAVHN5478-67-27 05:20:00 Test Item Value Reference Range Interpretation Comments UA Blood (test code = Trace *ABN*(09/20/2011 A UA Blood) 23:20:00) [facility]ballHjmeqtqPSWTHXJVLQ2441-95-24 05:20:00 Test Item Value Reference Range Interpretation Comments Micro? (test code = Performed (09/20/2011 N Micro?) 23:20:00) [facility] Ma[id number] 05:20:00 Test Item Value Reference Range Interpretation Comments UA WBC (test code = UA 11-20 /HPF A WBC) *ABN*(09/20/2011 23:20:00) [facility]ballMqiekjaRJNTPTDZRC9079-21-47 05:20:00 Test Item Value Reference Range Interpretation Comments UA Sq Epi (test code = Rare /LPF (09/20/2011 N UA Sq Epi) 23:20:00) [facility] M[id number] 05:20:00 Test Item Value Reference Range Interpretation Comments UA Bacteria (test code = Few /HPF (09/20/2011 N UA Bacteria) 23:20:00) [facility] M[id number] 05:20:00 Test Item Value Reference Range Interpretation Comments UA RBC (test None Seen See_Comment N [Automated [place]] code = UA RBC) (09/20/2011 The system [facility] 23:20:00) generated this result transmitted ref erence range: <=2. The reference range was not used to int erpret this result as normal/abnormal . [facility] Marsha[id number] 05:20:00 Test Item Value Reference Range Interpretation Comments UA Protein (test code Negative (09/20/2011 N = UA Protein) 23:20:00) [facility]ba[id number] 05:20:00 Test Item Value Reference Range Interpretation Comments UA pH (test code = UA pH) 6.5 1 5.0-8.0 N [facility] Marsha[id number] 05:20:00 Test Item Value Reference Range Interpretation Comments UA Glucose (test code Negative (09/20/2011 N = UA Glucose) 23:20:00) [facility] Marsha[id number] 05:20:00 Test Item Value Reference Range Interpretation Comments UA Color (test code = Yellow *NA*(09/20/2011 UA Color) 23:20:00) [facility]ballNmkntxpUUPKHCRCDV0258-65-40 05:20:00 Test Item Value Reference Range Interpretation Comments UA Spec Grav (test code = UA Spec 1.034 1 H Grav) [facility] Marsha[id number] 05:20:00 Test Item Value Reference Range Interpretation Comments UA Turbidity (test code = Clear (09/20/2011 N UA Turbidity) 23:20:00) [facility]
[2022-12-28] MEDS ORDERED: NA CHLORIDE 0.9% 500 ML ONE (01:49)
[2022-12-28 02:36] LABS: Hematocrit 39.8 % (39.6-49.0); Lymphocytes % 15.8 % (15.3-44.8); MCV 91.2 fL (80-100); MPV 8.1 fL (7.6-11.3); RBC Red Blood Cell Count 4.36 M/uL (4.33-5.43)
[2022-12-28 02:57] LABS: Albumin 3.9 g/dL (3.4-5.0); Bilirubin Direct 0.3 mg/dL (0-0.2); Bilirubin Total 0.9 mg/dL (0.2-1.0); Protein, Total 7.1 g/dL (6.4-8.2); Troponin High Sensitivity 15.5 pg/mL (<58.9)
[2022-12-28 02:59] LABS: Potassium 3.7 mEq/L (3.5-5.1)
[2022-12-28] MEDS ORDERED: ACETAMINOPHEN 500 MG TAB ONE (04:04)
[2022-12-28] MEDS ORDERED: METOPROLOL TARTRATE 5 MG/5 ML INJ IV ONE (04:16)
[2022-12-28 04:39] LABS: Specific Gravity 1.008 (1.005-1.030); Urine Bilirubin NEGATIVE (Negative); Urine Blood Negative (Negative); Urine Clarity Clear (Clear); Urine Color Colorless (Yellow); Urine Glucose NEGATIVE (Negative); Urine Protein NEGATIVE (Negative); Urine Urobilinogen Normal (Normal); Urine pH 7.5 (5.0-7.0)
--- NOTE | 2022-12-28 05:28 | ER ---
Nurse's Notes [facility] Name: Kevin Castellon Age: 62 yrs Sex: Male : 1960 Arrival Date: 12/28/2022 Time: 00:49 Bed 14 Private MD: Diagnosis: Weakness;Fever, unspecified;Viral infection, unspecified Presentation: 12/28 00:52 Chief complaint: EMS states: 62 year old male reports diarrhea for two days and cough ha1 for 1 week. 00:52 Coronavirus screen: Vaccine status: Patient reports being unvaccinated. Ebola Screen: ha1 No symptoms or risks identified at this time. Initial Sepsis Screen: Does the patient meet any 2 criteria? No. Patient's initial sepsis screen is negative. Does the patient have a suspected source of infection? No. Patient's initial sepsis screen is negative. Risk Assessment: Do you want to hurt yourself or someone else? Patient reports no desire to harm self or others. Onset of symptoms was December 25, 2022. 00:52 Method Of Arrival: [facility] ha1 00:52 Acuity: HUGH 3 ha1 Triage Assessment: 00:52 General: Appears comfortable, Behavior is calm, cooperative. Pain: Complains of pain in ha1 chest pressure when coughing Pain does not radiate. Pain currently is 5 out of 10 on a pain scale. EENT: No signs and/or symptoms were reported regarding the EENT system. Neuro: Level of Consciousness is awake, alert, obeys commands, Oriented to person, place, time, situation. Cardiovascular: Capillary refill < 3 seconds Patient's skin is warm and dry. Respiratory: Reports cough that is non-productive, pain with cough since one week Airway is patent Respiratory effort is even, unlabored, Respiratory pattern is regular, symmetrical. GI: Abdomen is round non-distended, Bowel sounds present X 4 quads. Reports diarrhea. : No signs and/or symptoms were reported regarding the genitourinary system. Musculoskeletal: Circulation, motion, and sensation intact. Range of motion: intact in all extremities, Reports pain in neck due to previous surgery. Historical: - Allergies: 00:52 Amiodarone; ha1 00:52 Sulfa (Sulfonamide Antibiotics); ha1 - Home Meds: 00:52 aspirin 81 mg Oral cap 1 cap once daily [Active]; atorvastatin 40 mg Oral tab 1 tab ha1 once daily [Active]; atorvastatin Oral [Active]; metoprolol tartrate 25 mg Oral tab 1 tab once daily [Active]; omeprazole 40 mg Oral cpDR 1 cap once daily [Active]; lisinopril 20 mg Oral tab 1 tab twice a day [Active]; clopidogrel 75 mg Oral tab 1 tab once daily [Active]; - PMHx: 00:52 Diabetes - NIDDM; GERD; High Cholesterol; Hydrocephalus; Hypertension; Myocardial ha1 infarction; - PSHx: 00:52 Appendectomy; B shoulder SX; back surgery; hernia repair x 2; quad. bypass; ha1 - Immunization history:: Adult Immunizations up to date. - Social history:: Smoking status: unknown. Screenin:52 Abuse screen: Denies threats or abuse. Denies injuries from another. Nutritional ha1 screening: No deficits noted. Tuberculosis screening: No symptoms or risk factors identified. 00:52 [facility] ED Fall Risk Assessment (Adult) History of falling in the last 3 months, ha1 including since admission Yes- single mechanical fall (1 pt) Confusion or Disorientation No (0 pts) Intoxicated or Sedated No (0 pts) Impaired Gait No (0 pts) Mobility Assist Device Used Yes (1 pt) Altered Elimination No (0 pt) Score/Fall Risk Level 0 - 2 = Low Risk Oriented to surroundings, Maintained a safe environment, Educated pt \T\ family on fall prevention, incl call for assistance when getting out of bed, Hourly rounding (assess needs \T\ fall precautionary measures) done. Assessment: 00:52 Reassessment: see triage assessment. ha1 01:00 Reassessment: Patient and/or family updated on plan of care and expected duration. Pain ha1 level reassessed. Patient is alert, oriented x 3, equal unlabored respirations, skin warm/dry/pink. 02:00 Reassessment: Patient and/or family updated on plan of care and expected duration. Pain ha1 level reassessed. Patient is alert, oriented x 3, equal unlabored respirations, skin warm/dry/pink. 03:00 Reassessment: eyes closed. Respiratory: Airway is patent Respiratory effort is even, ha1 unlabored, Respiratory pattern is regular, symmetrical. 03:37 Reassessment: notified care provider of high temperature. ha1 04:00 Reassessment: Patient and/or family updated on plan of care and expected duration. Pain ha1 level reassessed. eyes closed. Respiratory: Airway is patent Respiratory effort is even, unlabored, Respiratory pattern is regular, symmetrical. 05:00 Reassessment: Patient and/or family updated on plan of care and expected duration. Pain ha1 level reassessed. Patient is alert, oriented x 3, equal unlabored respirations, skin warm/dry/pink. in shift in the room. 05:57 Reassessment: Patient and/or family updated on plan of care and expected duration. Pain ha1 level reassessed. Patient is alert, oriented x 3, equal unlabored respirations, skin warm/dry/pink. Vital Signs: 00:52 BP 164 / 85; Pulse 72; Resp 18 S; Temp 99.2; Pulse Ox 97% on R/A; Weight 93.89 kg; ha1 Height 5 ft. 10 in. ; 01:00 BP 164 / 85; Pulse 71; Resp 16 S; Pulse Ox 96% on R/A; ha1 02:00 BP 152 / 87; Pulse 68; Resp 16 S; Pulse Ox 97% on R/A; ha1 03:00 BP 177 / 100; Pulse 82; Resp 14 S; Pulse Ox 97% on R/A; ha1 03:37 BP 175 / 101; Pulse 89; Resp 18 S; Temp 101.5; Pulse Ox 98% on R/A; ha1 04:05 BP 152 / 81; Pulse 81; Resp 16 S; Pulse Ox 98% on R/A; ha1 04:52 BP 133 / 73; Pulse 69; Resp 18 S; Pulse Ox 97% on R/A; ha1 05:11 Temp 99.4; ha1 00:52 Body Mass Index 29.70 (93.89 kg, 177.8 cm) ha1 ED Course: 00:52 Patient arrived in ED. sb4 00:52 Arm band placed on right wrist. ha1 00:52 Patient has correct armband on for positive identification. Placed in gown. Bed in low ha1 position. Call light in reach. Side rails up X 1. 00:52 Maintain EMS IV. Dressing intact. Good blood return noted. Site clean \T\ dry. Gauge \T\ orr 1 site: 20 left AC. 00:59 Saul Sandoval MD is Attending Physician. kdr 01:15 Nabila Mayer, RN is Primary Nurse. ha1 01:19 Triage completed. ha1 01:29 XRAY Chest (1 view) In Process Unspecified. EDMS 05:57 No provider procedures requiring assistance completed. IV discontinued, intact, ha1 bleeding controlled, No redness/swelling at site. Pressure dressing applied. Administered Medications: 01:40 Drug: NS 0.9% IV 500 ml Route: IV; Rate: bolus; Site: left antecubital; ha1 04:00 Drug: Acetaminophen PO 1000 mg Route: PO; ha1 05:11 Follow up: Response: No adverse reaction; Temperature is decreased ha1 04:05 Drug: Metoprolol IVP 5 mg Route: IVP; Site: left antecubital; ha1 04:30 Follow up: Response: No adverse reaction ha1 Medication: 05:58 VIS not applicable for this client. ha1 Outcome: 05:27 Discharge ordered by . kdr 05:57 Discharged to home via wheelchair, with family. ha1 05:57 Condition: stable 05:57 Discharge instructions given to patient, family, Instructed on discharge instructions, follow up and referral plans. Demonstrated understanding of instructions, follow-up care. 05:59 Patient left the ED. ha1 Signatures: Dispatcher [employer] EDME Saul Sandoval MD MD [facility] Nabila Mayer, RN RN ha1 Talya Cortez PA-C PABernard sb4 Corrections: (The following items were deleted from the chart) 04:20 04:07 Metoprolol IVP 5 mg IVP in left antecubital ha1 ha1 04:56 00:52 GI: Abdomen is round non-distended, Bowel sounds present X 4 quads. ha1 ha1
--- NOTE | 2022-12-28 05:28 | EDPHYS ---
Physician Documentation [facility] Name: Kevin Castellon Age: 62 yrs Sex: Male : 1960 Arrival Date: 12/28/2022 Time: 00:49 Bed 14 Private MD: ED Physician Saul Sandoval HPI: 12/28 02:51 This 62 yrs old Male presents to ER via EMS with complaints of cough and diarrhea. kdr 02:51 Patient reports diarrhea for couple of days and a cough for about a week. He feels very kdr congested in his nasal and sinus area. He has a slight sore throat. They seem to be concern for possible COVID. Patient otherwise is stable. They do report that he has had some trouble with urinating today but that is been going on for about a month according to the patient. Onset: The symptoms/episode began/occurred gradually, 1 month(s) ago. Severity of symptoms: At their worst the symptoms were mild in the emergency department the symptoms are unchanged. The patient has not experienced similar symptoms in the past. The patient has not recently seen a physician. Historical: - Allergies: 00:52 Amiodarone; ha1 00:52 Sulfa (Sulfonamide Antibiotics); ha1 - Home Meds: 00:52 aspirin 81 mg Oral cap 1 cap once daily [Active]; atorvastatin 40 mg Oral tab 1 tab ha1 once daily [Active]; atorvastatin Oral [Active]; metoprolol tartrate 25 mg Oral tab 1 tab once daily [Active]; omeprazole 40 mg Oral cpDR 1 cap once daily [Active]; lisinopril 20 mg Oral tab 1 tab twice a day [Active]; clopidogrel 75 mg Oral tab 1 tab once daily [Active]; - PMHx: 00:52 Diabetes - NIDDM; GERD; High Cholesterol; Hydrocephalus; Hypertension; Myocardial ha1 infarction; - PSHx: 00:52 Appendectomy; B shoulder SX; back surgery; hernia repair x 2; quad. bypass; ha1 - Immunization history:: Adult Immunizations up to date. - Social history:: Smoking status: unknown. ROS: 02:51 Constitutional: Negative for fever, chills, and weight loss, Eyes: Negative for injury, kdr pain, redness, and discharge, Neck: Negative for injury, pain, and swelling, Cardiovascular: Negative for chest pain, palpitations, and edema, Back: Negative for injury and pain, : Negative for injury, bleeding, discharge, and swelling, MS/Extremity: Negative for injury and deformity, Skin: Negative for injury, rash, and discoloration, Neuro: Negative for headache, weakness, numbness, tingling, and seizure activity. Psych: Negative for depression, anxiety, suicide ideation, homicidal ideation, and hallucinations, Allergy/Immunology: Negative for hives, rash, and allergies, Endocrine: Negative for neck swelling, polydipsia, polyuria, polyphagia, and marked weight changes, Hematologic/Lymphatic: Negative for swollen nodes, abnormal bleeding, and unusual bruising. 02:51 Respiratory: Positive for cough, with no reported sputum, dyspnea on exertion, Negative for hemoptysis, orthopnea, pleurisy, shortness of breath, sputum production. 02:51 Abdomen/GI: Positive for diarrhea, Negative for abdominal pain, nausea and vomiting, nausea, vomiting, abdominal cramps, abdominal distension, anorexia, Patient states that he had been constipated for period of time and then when that passed, he started having lots of diarrhea which has persisted. Exam: 02:30 ECG was reviewed by the Attending Physician. kdr 02:51 Constitutional: This is a well developed, well nourished patient who is awake, alert, kdr and in no acute distress. Head/Face: Normocephalic, atraumatic. Eyes: Pupils equal round and reactive to light, extra-ocular motions intact. Lids and lashes normal. Conjunctiva and sclera are non-icteric and not injected. Cornea within normal limits. Periorbital areas with no swelling, redness, or edema. Neck: Trachea midline, no thyromegaly or masses palpated, and no cervical lymphadenopathy. Supple, full range of motion without nuchal rigidity, or vertebral point tenderness. No Meningismus. Chest/axilla: Normal chest wall appearance and motion. Nontender with no deformity. No lesions are appreciated. Cardiovascular: Regular rate and rhythm with a normal S1 and S2. No gallops, murmurs, or rubs. Normal PMI, no JVD. No pulse deficits. Respiratory: Lungs have equal breath sounds bilaterally, clear to auscultation and percussion. No rales, rhonchi or wheezes noted. No increased work of breathing, no retractions or nasal flaring. Abdomen/GI: Soft, non-tender, with normal bowel sounds. No distension or tympany. No guarding or rebound. No evidence of tenderness throughout. Skin: Warm, dry with normal turgor. Normal color with no rashes, no lesions, and no evidence of cellulitis. MS/ Extremity: Pulses equal, no cyanosis. Neurovascular intact. Full, normal range of motion. Neuro: Awake and alert, GCS 15, oriented to person, place, time, and situation. Cranial nerves II-XII grossly intact. Motor strength 5/5 in all extremities. Sensory grossly intact. Cerebellar exam normal. Normal gait. Psych: Awake, alert, with orientation to person, place and time. Behavior, mood, and affect are within normal limits. Vital Signs: 00:52 BP 164 / 85; Pulse 72; Resp 18 S; Temp 99.2; Pulse Ox 97% on R/A; Weight 93.89 kg; ha1 Height 5 ft. 10 in. ; 01:00 BP 164 / 85; Pulse 71; Resp 16 S; Pulse Ox 96% on R/A; ha1 02:00 BP 152 / 87; Pulse 68; Resp 16 S; Pulse Ox 97% on R/A; ha1 03:00 BP 177 / 100; Pulse 82; Resp 14 S; Pulse Ox 97% on R/A; ha1 03:37 BP 175 / 101; Pulse 89; Resp 18 S; Temp 101.5; Pulse Ox 98% on R/A; ha1 04:05 BP 152 / 81; Pulse 81; Resp 16 S; Pulse Ox 98% on R/A; ha1 04:52 BP 133 / 73; Pulse 69; Resp 18 S; Pulse Ox 97% on R/A; ha1 05:11 Temp 99.4; ha1 00:52 Body Mass Index 29.70 (93.89 kg, 177.8 cm) ha1 MDM: 01:06 Patient medically screened. kdr 02:51 Data reviewed: vital signs, nurses notes. ED course: I discussed the patient's urinary kdr issues. According to the patient he has had some difficulty controlling his urine from time to time since his surgery about a month ago. That does not appear to be changing but is intermittent. 05:25 ED course: I spoke with Dr. Linares at [facility]. I related the patient's history kdr and current findings and presentation to the ED. He saw no need for admission or transfer at this time and recommended follow-up with Dr. Steward tomorrow.. 12/28 01:13 Order name: Basic Metabolic Panel; Complete Time: 03:06 kdr 12/28 01:13 Order name: CBC with Diff; Complete Time: 03:06 kdr 12/28 01:13 Order name: LFT's; Complete Time: 03:06 kdr 12/28 01:13 Order name: NT PRO-BNP; Complete Time: 03:06 kdr 12/28 01:13 Order name: Troponin HS; Complete Time: 03:06 kdr 12/28 01:13 Order name: COVID-19 SARS RT PCR; Complete Time: 03:35 kdr 12/28 01:13 Order name: Flu; Complete Time: 04:46 kdr 12/28 01:13 Order name: Strep kdr 12/28 03:08 Order name: Throat Culture EDIA 12/28 03:35 Order name: Urinalysis w/ reflexes; Complete Time: 04:46 kdr 12/28 01:13 Order name: XRAY Chest (1 view) kdr 12/28 01:13 Order name: EKG; Complete Time: 01:14 kdr 12/28 01:13 Order name: Cardiac monitoring; Complete Time: 01:24 kdr 12/28 01:13 Order name: EKG - Nurse/Tech; Complete Time: 02:17 kdr 12/28 01:13 Order name: IV Saline Lock; Complete Time: 01:24 kdr 12/28 01:13 Order name: Labs collected and sent; Complete Time: 02:17 kdr EC:30 Rate is 63 beats/min. Rhythm is regular, Normal Sinus Rhythm with No ectopy. QRS [place] kdr is Normal. MD interval is normal. QRS interval is normal. Clinical impression: Normal ECG. Administered Medications: 01:40 Drug: NS 0.9% IV 500 ml Route: IV; Rate: bolus; Site: left antecubital; ha1 04:00 Drug: Acetaminophen PO 1000 mg Route: PO; ha1 05:11 Follow up: Response: No adverse reaction; Temperature is decreased ha1 04:05 Drug: Metoprolol IVP 5 mg Route: IVP; Site: left antecubital; ha1 04:30 Follow up: Response: No adverse reaction ha1 Disposition Summary: 12/28/22 05:27 Discharge Ordered Location: Home kdr Problem: an ongoing problem kdr Symptoms: have improved kdr Condition: Stable kdr Diagnosis - Weakness kdr - Fever, unspecified kdr - Viral infection, unspecified kdr Followup: kdr - With: Private Physician - When: Today - Reason: If symptoms return, Further diagnostic work-up, Recheck today's complaints, Continuance of care, Re-evaluation by your physician Discharge Instructions: - Discharge Summary Sheet kdr - Fatigue kdr - Weakness, [id number] kdr - Fever, Adult, [id number] kdr - Viral Illness, Adult kdr Forms: - Medication Reconciliation Form kdr - Thank You Letter kdr Signatures: Dispatcher [employer] EDMS Saul Sandoval MD MD kdr Nabila Mayer RN RN ha1 Corrections: (The following items were deleted from the chart) 03:53 03:37 Urinalysis+[id number].LAB.BRZ ordered. [facility] EDIA
[2022-12-28 06:12] VITALS: BP 133/73; O2SAT 97
[2022-12-28 06:13] VITALS: TEMP 99.4
--- NOTE | 2022-12-28 13:31 | RAD REPORT ---
EXAM DESCRIPTION: RAD - Chest Single View - 12/28/2022 1:28 am CLINICAL HISTORY: The patient is 62 years old and is Male; CONGESTION TECHNIQUE: Frontal view of the chest. COMPARISON: No relevant prior studies available. FINDINGS: Lungs: Mildly prominent interstitial markings. No consolidation. Pleural space: Unremarkable. No pneumothorax. Heart: Unremarkable. Mediastinum: Postsurgical changes in the mediastinum. Bones/joints: Postsurgical changes in the cervical spine. Postsurgical changes in the right shoulder. Left shoulder arthroplasty. IMPRESSION: Mildly prominent interstitial markings. No consolidation. Electronically signed by: Wicho Villafana MD 12/28/2022 2:05 AM CDT Due to temporary technical issues with the PACS/Fluency reporting system, reports are being signed by the in house radiologists without review as a courtesy to insure prompt reporting. The interpreting radiologist is fully responsible for the content of the report.
--- NOTE | 2022-12-29 05:52 | EKG ---
Test Date: 2022-12-28 Test Time: 01:52:13 Grade Checker: HANNAH MEASUREMENT RESULTS: Intervals: Rate: 69 NM: 162 QRSD: 100 QT: 422 QTc: 452 [place]: P: 57 NM: 162 QRS: 25 T: 62 INTERPRETIVE STATEMENTS: Normal sinus rhythm Normal ECG Compared to ECG 11/24/2022 14:09:19 No significant changes Electronically Signed On 12-29-22 05:48:51 CDT by Eddi Verde
== END 2022-12-28 05:59 | disposition home or self-care (01) ==
LOC: ER 00:49
DX: B34.9 Viral infection, unspecified (principal); R53.1 Weakness; R05.9 Cough, unspecified; R19.7 Diarrhea, unspecified; E11.9 Type 2 diabetes mellitus without complications; I10 Essential (primary) hypertension; Z20.822 Contact with and (suspected) exposure to COVID-19; Z79.82 Long term (current) use of aspirin; Z88.2 Allergy status to sulfonamides; Z88.8 Allergy status to other drugs, medicaments and biological substances
CPT/HCPCS: 93005; 87070; 85025; 80048; 36415; 80076; 87081; 81003; 84484; 83880; 87804 ×2; 71045; 96374; 99284; U0003; J7040